=== PATIENT | male | born 1950 | race Caucasian/White ===

== ENCOUNTER → 2019-09-30 | Outpatient (CLI) | payer MEDICARE ==
[2019-09-30 15:28] LABS: Basophils % (A) 1 %; Eosinophils # (A) 0.2 k/uL (0-0.7); Eosinophils % (A) 5 %; HCT 45.9 % (39.0-53.0); Lymphocytes # (A) 1.7 k/uL (1.0-4.8); Lymphocytes % (A) 44 %; MCH 29.8 pg (25.0-35.0); MCHC 32.6 g/dL (31.0-37.0); MCV 91.4 fL (80.0-100.0); Mean Platelet Volume 6.9; Monocytes # (A) 0.2 k/uL (0-1.0); Monocytes % (A) 5 %; Neutrophils # (A) 1.6 k/uL (1.3-7.7); Neutrophils % (A) 42 %; Platelet Count 276 k/uL (150-450); RBC 5.03 m/uL (4.30-5.90); RDW 14.2 % (11.5-15.5); WBC 3.8 k/uL (3.8-10.6)
[2019-09-30 19:11] LABS: African American GFR (CKD) 89.9 (60.0-200.0); Albumin 4.2 g/dL (3.80-4.90); Albumin/Globulin Ratio 2.1 (1.60-3.17); Anion Gap 9.4 mmol/L (4.00-12.00); Calcium 9.3 mg/dL (8.7-10.3); Carbon Dioxide 27.6 mmol/L (21.6-31.8); Non-African American GFR(CKD) 77.5 (60.0-200.0); Potassium 4.4 mmol/L (3.5-5.5); Total Bilirubin 0.4 mg/dL (0.2-1.2); Total Protein 6.2 g/dL (6.2-8.2)
== END | disposition home or self-care (01) ==
LOC: LABWHC1 14:08
PROVIDERS: ATTEND Nurse Practitioner
DX: C18.9 Malignant neoplasm of colon, unspecified (principal); D50.9 Iron deficiency anemia, unspecified; K90.9 Intestinal malabsorption, unspecified
CPT/HCPCS: 36415; 80053; 85025

== ENCOUNTER → 2021-04-23 | Outpatient (CLI) | payer MEDICARE ==
--- NOTE | 2021-04-23 08:42 | CT ---
EXAMINATION TYPE: CT ChestAbdPelvis w con DATE OF EXAM: 04/23/2021 COMPARISON: None HISTORY: bladder and colon CA, Lung nodule CT DLP: 2347 mGycm CONTRAST: CT scan of the chest, abdomen and pelvis is performed with Oral Contrast and with IV Contrast, patien t injected with 100 mL of Isovue 300. CT Chest: LUNGS: 2.6 cm pulmonary nodule right lower lobe. 1.8 cm pulmonary nodule left lower lobe. Right upper lobe pulmonary nodule measuring 1.1 cm an additional right upper lobe nodule measuring 8 mm. Right u pper lobe peripheral pulmonary nodule measuring 11 mm. MEDIASTINUM: Thoracic aorta is of normal caliber. The heart is not enlarged. No evidence for media stinal mass or adenopathy. HILAR STRUCTURES: No evidence for mass. No hilar adenopathy is appreciated. OTHER: No significant abnormality. CONTRAST CT ABDOMEN AND PELVIS FINDINGS: LIVER/GB: No calcified gallstones. No space occupying hepatic lesion. Biliary tree is of normal ca liber. PANCREAS: No inflammation. No distinct mass. SPLEEN: No splenic enlargement. No lesion seen. ADRENALS: No nodule. No thickening. KIDNEYS/BLADDER: No hydronephrosis. Bilateral nephrolithiasis without obstruction. No distinct renal mass. Urinary bladder is not ideally opacified for appropriate evaluation. BOWEL: Normal appendix. Normal bowel caliber. No inflammation. GENITAL ORGANS: No gross abnormality. LYMPH NODES: No greater than 1cm abdominal or pelvic lymph nodes are appreciated. AORTA: No significant abnormality. OSSEOUS STRUCTURES: No significant abnormality is seen. OTHER: No significant additional abnormality is seen. IMPRESSION: 1. Bilateral pulmonary nodules. Correlate for metastatic disease.
== END | disposition home or self-care (01) ==
LOC: RADCTMAIN 06:15
PROVIDERS: ATTEND Internal Medicine Medical Oncology
DX: C67.9 Malignant neoplasm of bladder, unspecified (principal); R91.8 Other nonspecific abnormal finding of lung field
CPT/HCPCS: 71260; 74177; J1642; Q9967

== ENCOUNTER → 2021-08-09 | Outpatient (CLI) | payer MEDICARE ==
--- NOTE | 2021-08-12 08:58 | PE ---
EXAMINATION TYPE: PET CT fusion skull to thigh DATE OF EXAM: 08/09/2021 COMPARISON: Prior whole body CT April 23, 2021 HISTORY: Bladder cancer progress study per order. History of colon cancer metastatic to the lung di agnosed 2018 currently on chemotherapy. TECHNIQUE: Following the intravenous administration of 8.66 mCi of F-18 FDG, whole body images are p erformed from the skull base to the midthigh. Images are reviewed on the computer in the coronal, ax ial, and sagittal planes. Reconstructed rotating images are created on independent workstation and r eviewed on the computer. A localization and attenuation correction CT is performed in conjunction w ith the PET scan. Blood glucose level equals 118. SCAN: Subsequent Scan FINDINGS: SKULL BASE AND NECK: There is 10 x 7 mm right parotid hypermetabolic mass or nodule axial image 55, max SUV is 4.72. This is at the level of a draining tortuous vessel or vein. No additional areas of a bnormal hypermetabolic uptake. CHEST, MEDIASTINUM, AND HILAR REGION: Enlarged posterior 4.1 x 3.4 cm right lung mass with abnormal h ypermetabolic uptake, max SUV is 10.09 on axial image 147. Additional scattered hypermetabolic pulmon puja nodules stable or increased in size, posterior left midlung lesion now measures 2.6 x 2.4 cm axia l image 139 with central cavitation, max SUV is 8.53. ABDOMEN AND PELVIS: Normal excretion is seen. Mild nonspecific bowel uptake anterior pelvic bowel loo ps is present. No additional abnormal hypermetabolic uptake. OSSEOUS STRUCTURES: Some increased uptake greater trochanter level bilaterally greater on the right i s suspicious for trochanteric bursitis. Mild uptake bilateral shoulder joints corresponds to levels o f advanced degenerative change. OTHER CT: There is right internal jugular Mediport catheter terminating in SVC. There is coronary art cinthia calcification which is noted marked of underlying coronary artery disease. Surgical changes sigmo id rectal colon. Prostate gland has a linear density axial image 272 possible treatment change, corre late clinically. No significant change from prior. Multilevel spurring in the spine. IMPRESSION: 1. Pulmonary metastatic progression as detailed above. 2. Nonspecific hypermetabolic right parotid just under 1.0 cm mass in which neoplasm cannot be exclud ed. Advise ENT referral and consider sampling.
== END | disposition home or self-care (01) ==
LOC: RADPETMAIN 16:23
PROVIDERS: ATTEND Internal Medicine Medical Oncology
DX: C78.5 Secondary malignant neoplasm of large intestine and rectum (principal); C67.9 Malignant neoplasm of bladder, unspecified; E66.3 Overweight; I48.91 Unspecified atrial fibrillation
CPT/HCPCS: 78815; A9552

== ENCOUNTER → 2021-11-29 | Outpatient (CLI) | payer MEDICARE ==
--- NOTE | 2021-12-02 06:36 | PE ---
EXAMINATION TYPE: PET CT fusion skull to thigh DATE OF EXAM: 11/29/2021 COMPARISON: Prior PET/CT August 09, 2021. Prior CT CAP April 23, 2021 HISTORY: History of colon cancer diagnosed November 24, 2017. Patient completed chemotherapy November 03, 2021 . TECHNIQUE: Following the intravenous administration of 8.84 mCi of F-18 FDG, whole body images are p erformed from the skull base to the midthigh. Images are reviewed on the computer in the coronal, ax ial, and sagittal planes. Reconstructed rotating images are created on independent workstation and r eviewed on the computer. A localization and attenuation correction CT is performed in conjunction w ith the PET scan. Blood glucose level equals 124. SCAN: Subsequent Scan FINDINGS: SKULL BASE AND NECK: Persistent 10 x 7 mm deep right parotid hypermetabolic mass or lymph node axial image 34 current study, max SUV is 3.16 current study improved from 4.72. This is at the level of a draining tortuous vessel or vein just superficial to this. No definitive new areas of abnormal hypermetabolic uptake. CHEST, MEDIASTINUM, AND HILAR REGION: Persistent posterior 2.9 x 2.4 cm nodule decreased in size from 4.1 x 3.4 cm on prior study axial image 128 with persistent but improved abnormal hypermetabolic upt patsy, max SUV is 4.84 versus 10.09 on prior study. Additional scattered hypermetabolic pulmonary nodul es decreased in size and max SUV, for reference there is posterior left midlung lesion now measures 1 .7 x 1.0 cm axial image 121 versus 2.6 x 2.4 cm prior study, max SUV is currently less than 2.5 versu s 8.53. No definitive new abnormal hypermetabolic lesions. ABDOMEN AND PELVIS: Normal excretion is seen. Mild nonspecific bowel uptake anterior pelvic bowel loo ps is redemonstrated. No new areas of abnormal hypermetabolic uptake clearly seen. OSSEOUS STRUCTURES: Some persistent increased uptake greater trochanter level bilaterally greater on the right is suspicious for trochanteric bursitis is redemonstrated. Mild uptake bilateral shoulder j oints corresponds to levels of advanced degenerative change similar to prior. OTHER CT: There is right internal jugular Mediport catheter redemonstrated. There is coronary artery calcification which is noted marker for underlying coronary artery disease redemonstrated. Surgical c hanges sigmoid rectal colon again seen. Prostate gland has a linear density axial image 272 possible treatment change, redemonstrated. Multilevel spurring in the spine again seen. IMPRESSION: Partial positive treatment response as detailed above. Improving pulmonary metastatic dis ease noted. Right parotid lesion also shows positive treatment response. No new metastatic disease id entified.
== END | disposition home or self-care (01) ==
LOC: RADPETMAIN 11:07
PROVIDERS: ATTEND Internal Medicine Medical Oncology
DX: C67.9 Malignant neoplasm of bladder, unspecified (principal); C78.5 Secondary malignant neoplasm of large intestine and rectum; I48.91 Unspecified atrial fibrillation; E66.3 Overweight; Z68.25 Body mass index [BMI] 25.0-25.9, adult
CPT/HCPCS: 78815; A9552

== ENCOUNTER 2021-12-05 12:42 | Emergency (ER) | payer MEDICARE ==
[2021-12-05 14:34] VITALS: BP 136/80; PULSE 55; RESP 18; TEMP 97.9
== END 2021-12-05 20:11 | disposition left against medical advice (07) ==
LOC: EC 12:42
DX: Z53.21 Procedure and treatment not carried out due to patient leaving prior to being seen by health care provider (principal)
CPT/HCPCS: 87635; 99499

== ENCOUNTER → 2022-01-13 | Outpatient (CLI) | payer MEDICARE, BC ==
[2022-01-13 16:32] LABS: African American GFR (CKD) >90 (>60 ml/min/1.73 sqM); Blood Urea Nitrogen 19 mg/dL (9-20); Non-African American GFR(CKD) 90 (>60 ml/min/1.73 sqM)
--- NOTE | 2022-01-13 20:10 | CT ---
EXAMINATION TYPE: CT angio chest DATE OF EXAM: 01/13/2022 COMPARISON: CT dated 04/23/2021 and PET scan dated 11/29/2021 HISTORY: Chest pain and shortness of breath. Atrial fibrillation. CT DLP: 1623 mGy.cm. (Including the neck soft tissue CT scan). Automated Exposure Control for Dose Re duction was Utilized. TECHNIQUE AND CONTRAST: CTA scan of the thorax is performed with IV Contrast, patient injected with 100 mL of Isovue 370, use d both studies. Pulmonary angiogram protocol. MIP Images are created on an independent workstation and reviewed. FINDINGS: No definite filling defect within the pulmonary trunk, main pulmonary arteries, lobar, segmental and proximal subsegmental branches to suggest pulmonary embolism. Distal subsegmental branches are subopt imally assessed. The pulmonary trunk measures 3.1 cm suggestive of pulmonary hypertension. No gross c ardiomegaly. Coronary and arterial atherosclerotic calcifications. Focal ectasia along the inferior a spect of the aortic arch measuring up to 3.2 cm. Slightly larger known lung lesions as compared to the last available PET scan dated 11/29/2021. For exa mple, a right lower lobe posterior lesion measures 2.5 x 3.3 cm compared to 2.4 x 2.9 cm previously. A left lower lobe posterior lesion measures 13 x 19 mm compared to 10 x 17 mm previously. A right upp er lobe lesion measures 13.3 cm compared to 11.7 cm previously. Right apical nodule measures 5 mm com pared to 2 mm previously. A medial right upper lobe lesion measures 15 x 23 mm compared to 14 x 20 mm previously. COPD changes. More infiltration is seen at the posterior aspect of the lung bases, possibly metastatic rather than inflammatory/infectious, please correlate clinically. Patent trachea and main bronchi. No pleural or pericardial effusion. Diffuse wall thickening of the esophagus, underlying esophageal lesion or esoph agitis can't be excluded, please correlate clinically and with upper GI endoscopy results. Slightly more prominent yet subcentimeter bilateral hilar lymph nodes, attention on follow-up. Otherw ise no pathologically enlarged lymph nodes in the chest. Bulky spleen. Fatty infiltration of the panc reas. Nonobstructing millimetric bilateral renal calculi. Right renal cyst, suboptimally assessed. De generative changes of the glenohumeral articulations. IMPRESSION: No major or central pulmonary embolism. Interval progression of the previously seen bilateral pulmonary lesions as described above consistent with progressive pulmonary metastatic lesions. More prominent bilateral hilar lymph nodes yet subcentimeter in size, attention on follow-up. Other i nterval changes and incidental findings as described above.
--- NOTE | 2022-01-13 20:18 | CT ---
EXAMINATION TYPE: CT soft tissue neck w con DATE OF EXAM: 01/13/2022 5:06 PM COMPARISON: PET scan dated 11/29/2021 HISTORY: r side neck swelling CT DLP: 1623 mGycm Automated exposure control for dose reduction was used. CONTRAST: CT scan of the neck is performed following with IV Contrast, patient injected with 50 mL of Isovue 37 0. Axial images are obtained, coronal and sagittal reformatted images are reviewed. FINDINGS: Slightly prominent nodule seen in the right parotid gland measuring 9 mm compared to 8mm previously. Recommend correlation with PET scan results. Otherwise symmetrical unremarkable parotid and submandib ular salivary glands. Unremarkable thyroid gland. Asymmetrical soft tissue thickening along the left side of the nasopharynx with opacified left mastoid air cells, underlying nasopharyngeal lesion canno t be excluded. Unremarkable remainder of the nasopharynx, oropharynx, hypopharynx and larynx. 10 mm left level 2 lym ph node compared to 8mm previously. Other scattered subcentimeter bilateral cervical lymph nodes, non specific. Scattered arterial atherosclerotic calcifications. Patent major neck vessels. Marked degene rative changes of the cervical spine. CT scan of the chest is dictated separately. IMPRESSION: Focal soft tissue thickening along the left side of the nasopharynx with opacified left mastoid air c ells, underlying nasopharyngeal lesion cannot be excluded. Slightly more prominent right parotid gland lymph node with more prominent left level 2 lymph node as described above. This could represent disease progression. Recommend correlation with PET scan resul ts. Other findings as described above.
== END | disposition home or self-care (01) ==
LOC: RADCTMAIN 14:53
PROVIDERS: ATTEND Internal Medicine Medical Oncology
DX: C67.9 Malignant neoplasm of bladder, unspecified (principal); C78.5 Secondary malignant neoplasm of large intestine and rectum; E66.3 Overweight; I48.91 Unspecified atrial fibrillation; R22.1 Localized swelling, mass and lump, neck
CPT/HCPCS: 82565; 84520; 70491; 71275; 36415; Q9967

== ENCOUNTER → 2022-02-28 | Outpatient (CLI) | payer MEDICARE, BC ==
--- NOTE | 2022-03-01 09:21 | PE ---
EXAMINATION TYPE: PET CT fusion skull to thigh DATE OF EXAM: 02/28/2022 CLINICAL INDICATION:Male, 71 years old with history of C67.9 Bladder CA; subsequent. TECHNIQUE: Following the intravenous administration of 12.3 mCi of F-18 FDG, whole body images are performed from the skull base to the midthigh. Images are reviewed on the computer in the coronal, a xial, and sagittal planes. Reconstructed rotating images are created on independent workstation and reviewed on the computer. A non-contrast CT is performed in conjunction with the PET scan. Glucose 110 mg/dL. COMPARISON: PET 11/29/2021 and 08/09/2021. FINDINGS: SKULL BASE AND NECK: There is a parotid gland lesion which demonstrates increased FDG activity measu ring 5 mm in short axis and maximum SUV of 3.3. CHEST, MEDIASTINUM, AND HILAR REGION: Redemonstration of pulmonary nodules which demonstrate increase d FDG activity compared to prior, example on CT imaging includes 82, 86, 103, 105 among others in the right upper lobe and middle lobe. The largest in the right lower lobe 2.9 x 2.7 cm in max SUV of 9.5, previously 4.8 and measuring 2.7 x 2.4 cm. The largest in the left lower lobe measuring 1.9 x 1.4 cm in max SUV 5.5, previously 3.0 and measurin g 1.7 x 1.2 cm. No increased FDG activity seen within the mediastinum. ABDOMEN AND PELVIS: No suspicious FDG activity. OSSEOUS STRUCTURES: No suspicious FDG activity. OTHER CT: The lenses are removed from the globes. Mild to moderate coronary artery atherosclerosis. R ight chest wall [id number] with distal tip terminating at the superior cavoatrial junction. Right renal cyst with right nonobstructing calculus. Left nonobstructing renal calculi. Fatty atrophy bullock es of the pancreas. Diastasis of the rectus abdominis musculature. Post surgical changes to the rectu m/sigmoid colon. There is bilateral fatty inguinal hernias. Multilevel disc degeneration changes are seen throughout the spine. IMPRESSION: 1. Progressive disease with scattered pulmonary nodules which have increased FDG activity when elva red to recent prior on 11/29/2021. 2. Right parotid gland lesion FDG uptake similar to prior exams dating back to 08/09/2021. 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 Ultrasound could be performed if clinically warranted.
== END | disposition home or self-care (01) ==
LOC: RADXRMAIN 12:04
PROVIDERS: ATTEND Internal Medicine Medical Oncology
DX: C67.8 Malignant neoplasm of overlapping sites of bladder (principal); C78.5 Secondary malignant neoplasm of large intestine and rectum; E66.3 Overweight; I48.91 Unspecified atrial fibrillation; Z68.25 Body mass index [BMI] 25.0-25.9, adult
CPT/HCPCS: 78815; A9552

== ENCOUNTER → 2022-06-13 | Outpatient (CLI) | payer MEDICARE, BC ==
--- NOTE | 2022-06-14 11:13 | PE ---
EXAMINATION TYPE: PET CT fusion skull to thigh DATE OF EXAM: 06/13/2022 CLINICAL INDICATION:Male, 71 years old with history of C67.8 TECHNIQUE: Following the intravenous administration of 11.71 mCi of F-18 FDG, whole body images are performed from the skull base to the midthigh. Images are reviewed on the computer in the coronal, axial, and sagittal planes. Reconstructed rotating images are created on independent workstation and reviewed on the computer. A non-contrast CT is performed in conjunction with the PET scan. Glucose 119 mg/dL COMPARISON: CT 01/13/2022 CT chest , PET/CT most recent 02/28/2022, FINDINGS: Mediastinal SUV mean is 1.7. Hepatic parenchyma SUV mean is 2.6. SKULL BASE AND NECK: There is a parotid gland lesion which demonstrates faint increased FDG activity and maximum SUV of 2.7, previously 3.35 and measures 5 mm similar to prior similar prior. CHEST, MEDIASTINUM, AND HILAR REGION: Redemonstration of pulmonary nodules which demonstrate increased FDG activity , these have decreased FDG activity when compared to immediate prior. Examples includes * Left lower lobe max SUV 1.8, previously 5.5 measuring 18 mm. * Right lower lobe max SUV 4.2, previously 9.5 measuring 23 mm . * Right upper lobe max SUV 2.7, previously 6.0 measuring 12 mm. * Left upper lobe max SUV 3.4, previously 6.4 measuring 18 mm. Volumes of the lesions are similar. ABDOMEN AND PELVIS: No suspicious FDG activity. OSSEOUS STRUCTURES: No suspicious FDG activity. Degeneration changes of the shoulders worse on the ri ght increased mild FDG activity max SUV 2.3. OTHER CT: The lenses are removed from the globes. Atherosclerosis of the arterial vasculature includi ng the coronary arteries and carotid bifurcations. Right chest wall [id number] with distal tip ter minating at the superior cavoatrial junction. Right renal cyst with right nonobstructing calculus. Le ft nonobstructing renal calculi. Fatty atrophy changes of the pancreas. Diastasis of the rectus abdom inis musculature. Post surgical changes to the rectum/sigmoid colon. There is bilateral fatty inguina l hernias. Multilevel disc degeneration changes are seen throughout the spine. IMPRESSION: 1. Partial positive response to therapy with scattered pulmonary nodules which have decreased FDG ac tivity with similar volume when compared to recent prior on 02/28/2022 2. Right parotid gland lesion FDG uptake similar to prior exams dating back to 08/09/2021. 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 Ultrasound could be performed if clinically warranted.
== END | disposition home or self-care (01) ==
LOC: RADPETMAIN 14:17
PROVIDERS: ATTEND Internal Medicine Medical Oncology
DX: C67.8 Malignant neoplasm of overlapping sites of bladder (principal); K11.9 Disease of salivary gland, unspecified; R91.8 Other nonspecific abnormal finding of lung field
CPT/HCPCS: 78815; A9552

== ENCOUNTER → 2023-03-20 | Outpatient (CLI) | payer MEDICARE ==
--- NOTE | 2023-03-21 18:12 | PE ---
EXAMINATION TYPE: PET CT fusion skull to thigh DATE OF EXAM: 03/20/2023 COMPARISON: No recent pertinent CT Prior PET/CT: 11/28/2022 HISTORY: Bladder cancer TECHNIQUE: Following the intravenous administration of 9.8 mCi of F-18 FDG, whole body images are pe rformed from the skull base to the midthigh. Images are reviewed on the computer in the coronal, axi al, and sagittal planes. Reconstructed rotating images are created on independent workstation and re viewed on the computer. A localization and attenuation correction CT is performed in conjunction wi th the PET scan. DLP: 41.75 mGycm SCAN: Subsequent Blood glucose: 120. mg/dL Average Mediastinum SUV: 2.34 Average Liver SUV: 3.49 FINDINGS: NECK: No abnormal uptake THORAX: There is a focus of intense uptake within the right suprahilar region with an SUV value of 4. 77, image 89. There is increased uptake within the peripheral nodular density right upper lung field, image 84 SUV 3.57. There is a right infrahilar radiotracer uptake measuring 3.95, image 108. There i s intense activity within the mass in the peripheral right lung with an SUV value of 7.55, image 113. There is intense uptake within a mass within the posterior left mid lung, SUV 4.4 image 117. A mass within the posterior right lung has an SUV value of 6.34, image 123. ABDOMEN: No abnormal uptake PELVIS: No abnormal uptake. There is radiotracer within the urinary bladder which can be related to n ormal excretion. There appears to be some wall thickening OSSEOUS STRUCTURES: No abnormal uptake. Some mild uptake at degenerative bilateral shoulders is noted . LOCALIZATION CT: Prostate contains a marker. Diffuse wall thickening through the urinary bladder appe ars to be present. Anterior pelvic wall hernia which is widely open and contains nonobstructed loops of bowel. Bilateral hydronephrosis is evident. An obstructing 0.8 cm calcification may be present. COMPARISON: Masses are increasing in size. Signal intensity is increasing. IMPRESSION: 1. Multiple increasing size bilateral lung masses with increasing SUV values compatible with worsenin g neoplastic processes.
== END | disposition home or self-care (01) ==
LOC: RADPETMAIN 13:02
PROVIDERS: ATTEND Internal Medicine Medical Oncology
DX: C67.8 Malignant neoplasm of overlapping sites of bladder (principal); R91.8 Other nonspecific abnormal finding of lung field
CPT/HCPCS: 78815; A9552

== ENCOUNTER → 2023-06-02 | Outpatient (CLI) | payer MEDICARE, BC ==
--- NOTE | 2023-06-02 10:51 | MR ---
EXAMINATION TYPE: MR brain wo/w con DATE OF EXAM: 06/02/2023 COMPARISON: None HISTORY: Lung cancer. TECHNIQUE: Multiplanar, multisequence images of the brain and brainstem is performed without and with IV contras t, utilizing 10.5 mL intravenous Gadavist . FINDINGS: Diffusion weighted images demonstrate no evidence of a recent infarct or other diffusion ab normality. There is a mild to moderate generalized degenerative change. Scattered areas of abnormal signal in the white matter are nonspecific but most typical remote white matter ischemia.. Midline structures demonstrate normal morphology. The craniocervical junction appears within normal limits. The dural venous sinuses appear patent. Bilateral mastoiditis mild chronic sinusitis. Nasal septal de viation. Orbits symmetric. Post contrast images demonstrate solid appearing lesion along the left cerebral vertex parietal lobe. Measuring 1 x 1 x 1.4 cm with adjacent vasogenic edema.. No midline shift. Report called to [facility] clinician 10:48 AM 06/02/2023. IMPRESSION: 1. There is a 1 x 1 x 1.4 cm left superior parietal lobe intracranial mass compatible with metastases .
== END | disposition home or self-care (01) ==
LOC: RADMRIMAIN 08:59
PROVIDERS: ATTEND Internal Medicine Medical Oncology
DX: C78.5 Secondary malignant neoplasm of large intestine and rectum (principal); C34.90 Malignant neoplasm of unspecified part of unspecified bronchus or lung; C67.9 Malignant neoplasm of bladder, unspecified; I48.91 Unspecified atrial fibrillation; E66.3 Overweight; R22.0 Localized swelling, mass and lump, head
CPT/HCPCS: 70553; J1642; A9585

== ENCOUNTER 2023-06-12 14:05 | Inpatient (IN) | payer MEDICARE, BC ==
[2023-06-12] MEDS ORDERED: IPRATROPIUM-ALBUTEROL 3 ML NEB INHALATION STA (14:22)
--- NOTE | 2023-06-12 14:45 | ED ---
General Adult HPI - General Chief complaint: Shortness of Breath Stated complaint: respitory distress Time Seen by Provider: 06/12/23 14:16 Source: EMS, RN notes reviewed Mode of arrival: EMS Limitations: no limitations - History of Present Illness Initial comments: 72-year-old male with past medical history significant for department with a chief complaint of hypoxia. Patient's family called EMS because patient's oxygen was well where he had a brief period where he had altered mental status. They are concerned because of patients low oxygen level. Patient is alert and oriented 3 upon initial history and physical exam. Patient's oxyg en ranging between 90% to 91% on room air. He reports shortness of breath upon exertion . Patient does report a productive cough with dark green sputum production. Denies any injury or trauma. Denies any fever, chills, chest pain, palpitations. Patient is a former smoker. - Related Data Home Medications Medication Instructions Recorded Confirmed Atorvastatin [Lipitor] 40 mg PO HS 06/12/23 06/12/23 Cholecalciferol [Vitamin D3 (25 25 mcg PO DAILY 06/12/23 06/12/23 Mcg = 1000 Iu)] Cyanocobalamin (Vitamin B-12) 1,000 mcg PO DAILY 06/12/23 06/12/23 [Vitamin B-12] DULoxetine HCL [Cymbalta] 60 mg PO HS 06/12/23 06/12/23 Garlic(Unknown Dose) 1 cap PO DAILY 06/12/23 06/12/23 HYDROcodone/APAP 10-325MG [[place] 1 tab PO Q6H PRN 06/12/23 06/12/23 10-325] Ipratropium-Albuterol Nebulize 3 ml INHALATION RT-TID 06/12/23 06/12/23 [Duoneb 0.5 mg-3 mg/3 ml Soln] Levofloxacin [Levaquin] 500 mg PO DAILY 06/12/23 06/12/23 Metoprolol Succinate (ER) [Toprol 25 mg PO HS 06/12/23 06/12/23 Xl] Montelukast [Singulair] 10 mg PO HS 06/12/23 06/12/23 Morphine Sulfate ER [Ms Contin] 30 mg PO BID 06/12/23 06/12/23 [place]-3 Fatty Acids [[place]-3] 4,000 mg PO DAILY 06/12/23 06/12/23 Pantoprazole [Protonix] 40 mg PO HS 06/12/23 06/12/23 Pregabalin [Lyrica] 75 mg PO BID 06/12/23 06/12/23 Prochlorperazine [Compazine] 10 mg PO Q6H PRN 06/12/23 06/12/23 Tamsulosin [Flomax] 0.4 mg PO HS 06/12/23 06/12/23 guaiFENesin [Mucinex] 600 mg PO BID 06/12/23 06/12/23 Allergies Allergy/AdvReac Type Severity Reaction Status Date / Time alprazolam [From Xanax] Allergy Unknown Verified 06/12/23 18:03 scopolamine Allergy Unknown Verified 06/12/23 18:03 Review of Systems ROS Statement: Those systems with pertinent positive or pertinent negative responses have been documented in the HPI. ROS Other: All systems not noted in ROS Statement are negative. Past Medical History Past Medical History: Cancer, COPD, CVA/TIA, GERD/Reflux, Hypertension Additional Past Medical History / Comment(s): colon cancer, lung cancer History of Any Multi-Drug Resistant Organisms: None Reported Past Surgical History: Bowel Resection, Joint Replacement, Orthopedic Surgery Past Psychological History: No Psychological Hx Reported Smoking Status: Former smoker Past Alcohol Use History: None Reported Past Drug Use History: Marijuana General Exam - General Exam Comments Initial Comments: General: Alert, in no acute distress Head: atraumatic normocephalic. Eyes PERRL, EOMI intact, mucous membranes moist Respiratory: Bilateral wheezing, conversationally dyspneic Cardiovascular: Heart rate regular rate and rhythm Abdominal: Soft without guarding or rebound Extremities: Normal inspection with full range of motion and normal capillary refill Neuroogic: alert and oriented 3, CN II-XII intact, able to ambulate with steady gait Skin: warm dry and intact with normal color Limitations: no limitations Course Vital Signs 06/12/23 06/12/23 06/12/23 14:07 14:35 14:44 Temperature 97.3 F L Pulse Rate 85 91 86 Respiratory 18 Rate Blood Pressure 134/76 O2 Sat by Pulse 93 L Oximetry 06/12/23 17:47 Temperature Pulse Rate 87 Respiratory 22 Rate Blood Pressure 127/92 O2 Sat by Pulse 95 Oximetry - Reevaluation(s) Reevaluation #1: 06/12/23 15:24 case discussed with jordi Birch who is at bedside to evaluate the patient EKG Findings - EKG Comments: EKG Findings:: I interpreted the following: EKG performed at [place]: 19 84 bpm normal sinus rhythm ID interval 205, QRS is 96, QT/QTc is 365/406 Medical Decision Making - Medical Decision Making Was pt. sent in by a medical professional or institution (, NICOLE, DIET THERAPIST, urgent care, hospital, or [facility]...) When possible be specific @ -[No] Did you speak to anyone other than the patient for history (EMS, parent, family, police, friend...)? What history was obtained from this source @ -[No] Did you review nursing and triage notes (agree or disagree)? Why? @ -[I reviewed and agree with nursing and triage notes] Were old charts reviewed (outside hosp., previous admission, EMS record, old EKG, old radiological studies, urgent care reports/EKG's, [facility] records)? Report findings @ -[No old charts were reviewed] Differential Diagnosis (chest pain, altered mental status, abdominal pain women, abdominal pain men, vaginal bleeding, weakness, fever, dyspnea, syncope, headache, dizziness, GI bleed, back pain, seizure, CVA, palpatations, mental health, musculoskeletal)? @ -[not applicable] EKG interpreted by me (3pts min.). @ -[As above] X-rays interpreted by me (1pt min.). @ -yes CT interpreted by me (1pt min.). @ -[None done] U/S interpreted by me (1pt. min.). @ -[None done] What testing was considered but not performed or refused? (CT, X-rays, U/S, labs)? Why? @ -[None] What meds were considered but not given or refused? Why? @ -[None] Did you discuss the management of the patient with other professionals (professionals i.e. NICOLE Balbuena, DIET THERAPIST, lab, RT, psych nurse, child welfare social worker, purchasing intern, teacher, fare enforcement officer, egg caser)? Give summary @ -Dr. Nickerson who accepts the patient for observation with Tu consult to Dr. Jones and Dr. Greenfield Was smoking cessation discussed for >3mins.? @ -[No] Was critical care preformed (if so, how long)? @ -[No] Were there social determinants of health that impacted care today? How? (Homelessness, low income, unemployed, alcoholism, drug addiction, transportation, low edu. Level, literacy, decrease access to med. care, intermediate, rehab)? @ -[No] Was there de-escalation of care discussed even if they declined (Discuss DNR or withdrawal of care, Hospice)? DNR status @ -[No] What co-morbidities impacted this encounter? (DM, HTN, Smoking, COPD, CAD, Cancer, CVA, ARF, Chemo, Hep., AIDS, mental health diagnosis, sleep apnea, morb id obesity)? @ -[None] Was patient admitted / discharged? Hospital course, mention meds given and route, prescriptions, significant lab abnormalities, going to OR and other pertinent info. @ Admission. This is a 72-year-old male with a past medical history significant for cancer who presents to the emergency department with shortness of breath and altered mental status. Patient had a thorough history and physical exam performed. Patient's initial oxygen saturation is 98-91% on room air. Patient was placed on 2 L O2. Patient is conversationally dyspneic. There is expiratory wheeze in all lung barriga. Patient was provided DuoNeb and Solu-Medrol with mild symptomatic improvement. Case is discussed with Dr. nickerson who is at bedside to evaluate the patient and accepts the patient for further observation recommends consult to Dr. Dot Jones. Chest x-ray reveals progression of cancer compared to 03/20/2023 Case is discussed with Dr. Brown [facility] who agrees with plan of care Undiagnosed new problem with uncertain prognosis? @ -[No] Drug Therapy requiring intensive monitoring for toxicity (Heparin, Nitro, Insulin, Cardizem)? @ -[No] Were any procedures done? @ -[No] Diagnosis/symptom? @ -Shortness of Breath - Hypoxia - Altered Mental Status Acute, or Chronic, or Acute on Chronic? @ -Acute Uncomplicated (without systemic symptoms) or Complicated (systemic symptoms)? @ -complicated Side effects of treatment? @ -[No] Exacerbation, Progression, or Severe Exacerbation? @ -[No] Poses a threat to life or bodily function? How? (Chest pain, [place], [place], pneumonia, PE, COPD, DKA, ARF, appy, cholecystitis, CVA, Diverticulitis, Homicidal, Suicidal, threat to staff... and all critical care pts) @ -Yes, Shortness of breath - Lab Data Result diagrams: 06/13/23 06:08 06/13/23 06:08 Lab Results 06/12/23 06/12/23 06/12/23 Range/Units 14:29 14:29 14:29 WBC 7.9 (3.8-10.6) k/uL RBC 3.87 L (4.30-5.90) m/uL Hgb 10.8 L (13.0-17.5) gm/dL Hct 33.9 L (39.0-53.0) % MCV 87.4 (80.0-100.0) fL MCH 28.0 (25.0-35.0) pg MCHC 32.0 (31.0-37.0) g/dL RDW 14.4 (11.5-15.5) % Plt Count 400 (150-450) k/uL MPV 6.8 Neutrophils % 74 % Lymphocytes % 17 % Monocytes % 5 % Eosinophils % 2 % Basophils % 0 % Neutrophils # 5.9 (1.3-7.7) k/uL Lymphocytes # 1.4 (1.0-4.8) k/uL Monocytes # 0.4 (0-1.0) k/uL Eosinophils # 0.2 (0-0.7) k/uL Basophils # 0.0 (0-0.2) k/uL Hypochromasia Slight PT 10.6 (10.0-12.5) sec INR 1.0 (<1.2) APTT 28.1 (22.0-30.0) sec Sodium 139 (137-145) mmol/L Potassium 4.5 (3.5-5.1) mmol/L Chloride 102 (98-107) mmol/L Carbon Dioxide 32 H (22-30) mmol/L Anion Gap 5 mmol/L BUN 23 H (9-20) mg/dL Creatinine 0.78 (0.66-1.25) mg/dL Est GFR (CKD-EPI)AfAm >90 (>60 ml/min/1.73 sqM) Est GFR (CKD-EPI)NonAf >90 (>60 ml/min/1.73 sqM) Glucose 101 H (74-99) mg/dL Calcium 9.0 (8.4-10.2) mg/dL Total Bilirubin 0.3 (0.2-1.3) mg/dL AST 20 (17-59) U/L ALT 22 (4-49) U/L Alkaline Phosphatase 111 (38-126) U/L Troponin I (0.000-0.034) ng/mL NT-Pro-B Natriuret Pep 252 pg/mL Total Protein 6.2 L (6.3-8.2) g/dL Albumin 3.2 L (3.5-5.0) g/dL Influenza Type A (PCR) (Not Detectd) Influenza Type B (PCR) (Not Detectd) RSV (PCR) (Not Detectd) SARS-CoV-2 (PCR) (Not Detectd) 06/12/23 06/12/23 Range/Units 14:29 14:29 WBC (3.8-10.6) k/uL RBC (4.30-5.90) m/uL Hgb (13.0-17.5) gm/dL Hct (39.0-53.0) % MCV (80.0-100.0) fL MCH (25.0-35.0) pg MCHC (31.0-37.0) g/dL RDW (11.5-15.5) % Plt Count (150-450) k/uL MPV Neutrophils % % Lymphocytes % % Monocytes % % Eosinophils % % Basophils % % Neutrophils # (1.3-7.7) k/uL Lymphocytes # (1.0-4.8) k/uL Monocytes # (0-1.0) k/uL Eosinophils # (0-0.7) k/uL Basophils # (0-0.2) k/uL Hypochromasia PT (10.0-12.5) sec INR (<1.2) APTT (22.0-30.0) sec Sodium (137-145) mmol/L Potassium (3.5-5.1) mmol/L Chloride (98-107) mmol/L Carbon Dioxide (22-30) mmol/L Anion Gap mmol/L BUN (9-20) mg/dL Creatinine (0.66-1.25) mg/dL Est GFR (CKD-EPI)AfAm (>60 ml/min/1.73 sqM) Est GFR (CKD-EPI)NonAf (>60 ml/min/1.73 sqM) Glucose (74-99) mg/dL Calcium (8.4-10.2) mg/dL Total Bilirubin (0.2-1.3) mg/dL AST (17-59) U/L ALT (4-49) U/L Alkaline Phosphatase (38-126) U/L Troponin I <0.012 (0.000-0.034) ng/mL NT-Pro-B Natriuret Pep pg/mL Total Protein (6.3-8.2) g/dL Albumin (3.5-5.0) g/dL Influenza Type A (PCR) Not Detected (Not Detectd) Influenza Type B (PCR) Not Detected (Not Detectd) RSV (PCR) Not Detected (Not Detectd) SARS-CoV-2 (PCR) Not Detected (Not Detectd) Disposition Clinical Impression: Hypoxia, Lung cancer, Shortness of breath, AMS (altered mental status) Disposition: ADMITTED IP TO THIS HOSP Condition: Good Time of Disposition: 15:25
[2023-06-12 15:23] LABS: Basophils % (A) 0 %; Eosinophils # (A) 0.2 k/uL (0-0.7); Eosinophils % (A) 2 %; HCT 33.9 % (39.0-53.0); HGB 10.8 gm/dL (13.0-17.5); Hypochromasia Slight; Lymphocytes # (A) 1.4 k/uL (1.0-4.8); Lymphocytes % (A) 17 %; MCV 87.4 fL (80.0-100.0); Mean Platelet Volume 6.8; Monocytes # (A) 0.4 k/uL (0-1.0); Monocytes % (A) 5 %; Neutrophils # (A) 5.9 k/uL (1.3-7.7); Neutrophils % (A) 74 %; Platelet Count 400 k/uL (150-450); RBC 3.87 m/uL (4.30-5.90); RDW 14.4 % (11.5-15.5); WBC 7.9 k/uL (3.8-10.6)
--- NOTE | 2023-06-12 15:25 | XR ---
EXAMINATION TYPE: XR chest 2V DATE OF EXAM: 06/12/2023 COMPARISON: CT 01/13/2022 CT 03/20/2023 HISTORY: 72-year-old male with short of breath and respiratory distress TECHNIQUE: PA and lateral views FINDINGS: Right anterior chest wall injection port with catheter tip at the lower SVC. Right heart margin obscu red by adjacent pleural parenchymal opacity. There appears to be a new underlying right-sided pleural effusion with opacification of the entire right lower lung. Enlarging masses suggested on the right and at least one enlarging nodule suspected left midlung compared to a 2523. IMPRESSION: New moderate right pleural effusion with adjacent atelectasis and/or consolidation. Suspect enlarging nodules and masses compared to the patient's 03/20/2023 PET/CT.
[2023-06-12 15:29] LABS: Partial Thromboplastin Time 28.1 sec (22.0-30.0); Prothrombin Time 10.6 sec (10.0-12.5)
[2023-06-12 15:30] LABS: ALT 22 U/L (4-49); AST 20 U/L (17-59); African American GFR (CKD) >90 (>60 ml/min/1.73 sqM); Albumin 3.2 g/dL (3.5-5.0); Alkaline Phosphatase 111 U/L (38-126); Anion Gap 5 mmol/L; Blood Urea Nitrogen 23 mg/dL (9-20); Carbon Dioxide 32 mmol/L (22-30); Chloride 102 mmol/L (98-107); Glucose 101 mg/dL (74-99); Non-African American GFR(CKD) >90 (>60 ml/min/1.73 sqM); Potassium 4.5 mmol/L (3.5-5.1); Sodium 139 mmol/L (137-145); Total Bilirubin 0.3 mg/dL (0.2-1.3); Total Protein 6.2 g/dL (6.3-8.2)
[2023-06-12 15:38] LABS: NT-Pro-B-Type Natriuretic Pept 252 pg/mL
[2023-06-12] MEDS ORDERED: methylPREDNISolone SOD SUCCI 125 MG/2 ML VIAL IV STA (16:03)
[2023-06-12] MEDS ORDERED: NALOXONE 0.4 MG/ML 1 ML VIAL IV PRN (17:07)
--- NOTE | 2023-06-12 17:09 | CT ---
EXAMINATION TYPE: CT brain wo con CT DLP: 1212.4 mGycm, Automated exposure control for dose reduction was used. DATE OF EXAM: 06/12/2023 4:43 PM COMPARISON: MRI brain 06/02/2023. CLINICAL INDICATION:Male, 72 years old with history of AMS, AMS TECHNIQUE: Brain: Axial CT images of the brain were obtained with coronal and sagittal reformats created and rev iewed. Contrast used: None. Oral contrast used: None. FINDINGS: Brain: Extra-axial spaces: No abnormal extra-axial fluid collections. Ventricular system: Appear dilated in proportion to cerebral atrophy. Cerebral parenchyma: No acute intraparenchymal hemorrhage or mass effect. There is a slightly hyper dense 1.1 cm mass in the superior left parietal lobe with surrounding edema, similar to the prior MRI and compatible with metastasis. No definite new foci of increased or decreased attenuation seen thro ughout the brain. Mild generalized brain atrophy. . Cerebellum: No acute abnormality. Mass effect: No evidence of midline shift. Intracranial vasculature: Atherosclerotic calcifications of the larger arteries near the skull base. Soft tissues: Normal. Calvarium/osseous structures: No depressed skull fracture. Paranasal sinuses and mastoid air cells: Paranasal sinuses are clear. Scattered mild opacification o f a few left mastoid air cells. Visualized orbits: Orbital contents appear grossly intact. MRI is more sensitive for detecting acute processes such as infarct, and may be considered if clinica lly warranted. IMPRESSION: 1. No acute intracranial CT abnormality. 2. 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
[2023-06-12] MEDS: SODIUM CHLORIDE 0.9% 1,000 ML IV SCH (17:42)
[2023-06-12] MEDS ORDERED: PROCHLORPERAZINE 10 MG TAB PO PRN (17:56)
--- NOTE | 2023-06-12 18:14 | P.HPIM ---
History of Present Illness This is a pleasant 72 years old male with past medical history lung cancer with brain metastatis , Previous smoker. COPD, CVA/TIA, GERD/Reflux, Hypertension. This patient follows up with oncology team as an outpatient , he was getting chemotherapy but recently it was switched to a new regiment for failure of treatment and he hadn't started yet. He is not on oxygen at home. He was taken dyspnea slowly getting worse and today was more severe shortness of breath even with little exertion so him and family decided to come to emergency room. Patient was on oral Levaquin as an outpatient. When I talked to him was in [id number] respiratory distress, he cannot talk comfortably because of his dyspnea and cannot finish full length sentence. Cough with white phlegm but no chest pain. No change in urine or bowel habits. No fever. He used to be a heavy smoker for 40 years and he quit about 6 years ago. No alcohol or illicit tracts. On admission he was hypoxic about 70% on room air. Currently he is saturating 95% on 2 L oxygen via nasal cannula, no fever rest of vitals are stable. Tachypneic Labs look stable, in is mildly anemic with hemoglobin 10.8. Review of Systems Review of systems CONSTITUTIONAL: No fever, no malaise, no fatigue. HEENT: No recent visual problems or hearing problems. Denied any sore throat. CARDIOVASCULAR: No orthopnea, PND, no palpitations, no syncope. PULMONARY: No wall tenderness, no hemoptysis. GASTROINTESTINAL: No diarrhea, no nausea, no vomiting, no abdominal pain. Normoactive bowel sounds. NEUROLOGICAL: No headaches, no weakness, no numbness. HEMATOLOGICAL: Denies any bleeding or petechiae. GENITOURINARY: Denies any burning micturition, frequency, or urgency. MUSCULOSKELETAL/RHEUMATOLOGICAL: Denies any joint pain, swelling, or any muscle pain. ENDOCRINE: Denies any polyuria or polydipsia. Past Medical History Past Medical History: Cancer, COPD, CVA/TIA, GERD/Reflux, Hypertension Additional Past Medical History / Comment(s): colon cancer, lung cancer History of Any Multi-Drug Resistant Organisms: None Reported Past Surgical History: Bowel Resection, Joint Replacement, Orthopedic Surgery Past Psychological History: No Psychological Hx Reported Smoking Status: Former smoker Past Alcohol Use History: None Reported Past Drug Use History: Marijuana Medications and Allergies Home Medications Medication Instructions Recorded Confirmed Type Atorvastatin [Lipitor] 40 mg PO HS 06/12/23 06/12/23 History Cholecalciferol [Vitamin D3 (25 25 mcg PO DAILY 06/12/23 06/12/23 History Mcg = 1000 Iu)] Cyanocobalamin (Vitamin B-12) 1,000 mcg PO DAILY 06/12/23 06/12/23 History [Vitamin B-12] DULoxetine HCL [Cymbalta] 60 mg PO HS 06/12/23 06/12/23 History Garlic(Unknown Dose) 1 cap PO DAILY 06/12/23 06/12/23 History HYDROcodone/APAP 10-325MG [[place] 1 tab PO Q6H PRN 06/12/23 06/12/23 History 10-325] Ipratropium-Albuterol Nebulize 3 ml INHALATION RT-TID 06/12/23 06/12/23 History [Duoneb 0.5 mg-3 mg/3 ml Soln] Levofloxacin [Levaquin] 500 mg PO DAILY 06/12/23 06/12/23 History Metoprolol Succinate (ER) [Toprol 25 mg PO HS 06/12/23 06/12/23 History Xl] Montelukast [Singulair] 10 mg PO HS 06/12/23 06/12/23 History Morphine Sulfate ER [Ms Contin] 30 mg PO BID 06/12/23 06/12/23 History [place]-3 Fatty Acids [[place]-3] 4,000 mg PO DAILY 06/12/23 06/12/23 History Pantoprazole [Protonix] 40 mg PO HS 06/12/23 06/12/23 History Pregabalin [Lyrica] 75 mg PO BID 06/12/23 06/12/23 History Prochlorperazine [Compazine] 10 mg PO Q6H PRN 06/12/23 06/12/23 History Tamsulosin [Flomax] 0.4 mg PO HS 06/12/23 06/12/23 History guaiFENesin [Mucinex] 600 mg PO BID 06/12/23 06/12/23 History Allergies Allergy/AdvReac Type Severity Reaction Status Date / Time alprazolam [From Xanax] Allergy Unknown Verified 06/12/23 18:03 scopolamine Allergy Unknown Verified 06/12/23 18:03 Physical Exam Vitals: Vital Signs Temp Pulse Resp BP Pulse Ox 06/12/23 14:44 86 06/12/23 14:35 91 06/12/23 14:07 97.3 F L 85 18 134/76 93 L Intake and Output 06/12/23 06/12/23 06/12/23 06:59 14:59 22:59 Other: Weight 106.594 kg -GENERAL: The patient is alert and oriented x3, not in any mild to moderate respiratory acute distress. Obese HEENT: Pupils are round and equally reacting to light. EOMI. No scleral icterus. No conjunctival pallor. Normocephalic, atraumatic. No pharyngeal erythema. No thyromegaly. CARDIOVASCULAR: S1 and S2 present. No murmurs, rubs, or gallops. -PULMONARY: Chest is clear to auscultation, no wheezing , no crackles. Tachypne a with bilateral crepitation ABDOMEN: Soft, nontender, nondistended, normoactive bowel sounds. No palpable organomegaly. MUSCULOSKELETAL: No joint swelling or deformity. EXTREMITIES: No cyanosis, clubbing, or pedal edema. NEUROLOGICAL: Gross neurological examination did not reveal any focal deficits. SKIN: No rashes. no petechiae. Results CBC & Chem 7: 06/12/23 14:29 06/12/23 14:29 Labs: Abnormal Lab Results - Last 24 Hours (Table) 06/12/23 06/12/23 Range/Units 14:29 14:29 RBC 3.87 L (4.30-5.90) m/uL Hgb 10.8 L (13.0-17.5) gm/dL Hct 33.9 L (39.0-53.0) % Carbon Dioxide 32 H (22-30) mmol/L BUN 23 H (9-20) mg/dL Glucose 101 H (74-99) mg/dL Total Protein 6.2 L (6.3-8.2) g/dL Albumin 3.2 L (3.5-5.0) g/dL Assessment and Plan Assessment: Lung cancers with brain metastatic Right pleural effusion, mild button U with adjacent atelectasis or consolidation, cannot rule out pneumonia Acute COPD exacerbation Hypoxic respiratory failure secondary to above Current Obesity with BMI of 31.9 History of GERD Hypertension History of CVA/TIA Plan: The patient empirically on cefepime and sent for sputum culture and blood culture Solu-Medrol 40 mg Oxygen as needed Bronchodilator Check sputum culture, blood culture and procalcitonin BiPAP at night if needed. Labs and medication were reviewed.. Continue same treatment. Continue with symptomatic treatment. Resume home medication. Monitor labs and vitals. DVT and GI prophylaxis. Further recommendations as per clinical course of the patient DVT prophylaxis: Subcutaneous Lovenox GI Prophylaxis: Ppi Prognosis is guarded
[2023-06-12] MEDS ORDERED: DEXTROSE 50% SYRINGE 50 ML IVP PRN ×2 (18:15)
[2023-06-12 20:18] LABS: Glucose,Whole Blood 148 mg/dL (70-110)
[2023-06-12] MEDS: CEFEPIME 2 GM in SODIUM CHLORIDE 0.9% 100 ML IVPB SCH ×2 (20:25→23:38)
[2023-06-12] MEDS: methylPREDNISolone SOD SUCCI 40 MG/ML 1 ML VIAL IV SCH ×2 (20:27→23:37)
[2023-06-12] MEDS: PREGABALIN 75 MG CAP PO SCH (20:27)
[2023-06-12] MEDS: guaiFENesin 600 MG TABLET.ER PO SCH (20:27)
[2023-06-12] MEDS: ENOXAPARIN 40 MG/0.4 ML SYRINGE SQ SCH (20:27)
[2023-06-12] MEDS: MONTELUKAST 10 MG TAB PO SCH (20:28)
[2023-06-12] MEDS: TAMSULOSIN 0.4 MG CAP.ER.24H PO SCH (20:28)
[2023-06-12] MEDS: MORPHINE SULFATE ER 30 MG TABLET PO SCH (20:28)
[2023-06-12] MEDS: DULoxetine HCL 60 MG CAPSULE.DR PO SCH (20:28)
[2023-06-12] MEDS: METOPROLOL SUCCINATE (ER) 25 MG TAB.ER.24H PO SCH (20:28)
[2023-06-12] MEDS: PANTOPRAZOLE 40 MG TABLET PO SCH (20:28)
[2023-06-12] MEDS: INSULIN ASPART (NovoLOG) 100 UNIT/ML VIAL SQ SCH (20:38)
[2023-06-12] MEDS: IPRATROPIUM-ALBUTEROL 3 ML NEB INHALATION PRN (22:07)
[2023-06-12] MEDS: HYDROcodone/APAP 10-325MG 1 EACH TAB PO PRN (23:37)
[2023-06-13] MEDS: INSULIN ASPART (NovoLOG) 100 UNIT/ML VIAL SQ SCH ×4 (08:00→22:21)
[2023-06-13] MEDS: IPRATROPIUM-ALBUTEROL 3 ML NEB INHALATION PRN ×3 (08:10→20:43)
[2023-06-13 08:13] LABS: Glucose,Whole Blood 146 mg/dL (70-110)
[2023-06-13] MEDS: methylPREDNISolone SOD SUCCI 40 MG/ML 1 ML VIAL IV SCH ×2 (08:30→15:27)
[2023-06-13] MEDS: CEFEPIME 2 GM in SODIUM CHLORIDE 0.9% 100 ML IVPB SCH ×2 (08:30→15:27)
[2023-06-13] MEDS: guaiFENesin 600 MG TABLET.ER PO SCH ×2 (08:31→22:21)
[2023-06-13] MEDS: PREGABALIN 75 MG CAP PO SCH ×2 (08:31→22:19)
[2023-06-13] MEDS: MORPHINE SULFATE ER 30 MG TABLET PO SCH ×2 (08:31→22:19)
[2023-06-13] MEDS: ENOXAPARIN 40 MG/0.4 ML SYRINGE SQ SCH (08:32)
[2023-06-13] MEDS ORDERED: ENOXAPARIN 40 MG/0.4 ML SYRINGE SQ SCH (09:00)
[2023-06-13 09:15] LABS: Basophils # (A) 0.01 X 10*3/uL (0.00-0.10); Basophils % (A) 0.2 %; Eosinophils # (A) 0 X 10*3/uL (0.04-0.35); Eosinophils % (A) 0 %; HCT 32.8 % (39.6-50.0); HGB 10.1 g/dL (13.0-17.0); Lymphocytes # (A) 0.51 X 10*3/uL (0.90-5.00); Lymphocytes % (A) 8.1 %; MCH 27.2 pg (27.0-32.0); MCHC 30.8 g/dL (32.0-37.0); MCV 88.2 FL (80.0-97.0); Mean Platelet Volume 9.3 FL (9.5-12.2); Monocytes # (A) 0.04 X 10*3/uL (0.20-1.00); Monocytes % (A) 0.6 %; NRBC Per 100 WBC 0 X 10*3/uL (0.00-0.01); Neutrophils # (A) 5.71 X 10*3/uL (1.80-7.70); Neutrophils % (A) 90.6 %; Platelet Count 380 X 10*3/uL (140-440); RBC 3.72 X 10*6/uL (4.40-5.60); RDW 14.4 % (11.5-14.5)
[2023-06-13 09:30] LABS: BUN/Creat Ratio 31.29 Ratio (12.00-20.00); Blood Urea Nitrogen 21.9 mg/dL (9.0-27.0); Calcium 9.3 mg/dL (8.7-10.3); Carbon Dioxide 28.1 mmol/L (21.6-31.8); Chloride 102 mmol/L (96-109); Glucose 145 mg/dL (70-110); Potassium 4.9 mmol/L (3.5-5.5); Sodium 138 mmol/L (135-145)
[2023-06-13 12:47] LABS: Glucose,Whole Blood 168 mg/dL (70-110)
--- NOTE | 2023-06-13 14:25 | P.CNPUL ---
History of Present Illness Consult date: 06/13/23 Reason for consult: dyspnea History of present illness: This is a 72-year-old male patient who is coming in the hospital because of worsening shortness of breath. The patient has history of colon cancer with metastases to his lungs. This was diagnosed proximally 6 years ago and over the years, the patient has been treated for an oncologist out of [facility] regarding his colon cancer. He has utilized various treatments including FOLFOX and 5-FU over the years and his disease has a progressively getting worse. Recently, he was being contemplated for a clinical trial and he did not go to the clinical trial at this was a phase I trial. The patient has had serial PET scans and CAT scans over the years most of them have been done at [facility]. For instance, his most recent PET/CT that was done on 03/21/2023 showed multiple increasing bilateral lung masses with increasing SUV compatible with worsening neoplastic process. The patient had various lung masses largest being in the right lower lobe posterior segment. At that time, he had no significant pleural effusion. The PET scan of the thorax showed i ntense uptake within the right suprahilar lesion with an SUV of 4.7. Increase uptake in the periphery of the right upper lobe with an SUV of 3.5. There was also a right infrahilar mass with SUV of 3.9. Intense activity in the periphery of the right lung measuring 7.5 SUV and intense metabolic activity in the lung mass in the left midlung with an SUV of 4.4. Another mass in the posterior right lower lobe with an SUV of 6.4. He has not been receiving any treatment for now. Furthermore, a CAT scan of the abdomen that was done on 04/27/2023 demonstrated again some mild left-sided hydronephrosis with a obstructing 1 cm Within the proximal left ureter. There was nonobstructive bilateral renal stones. There is development of a right-sided pleural effusion that has increased in size in addition to a various masses in the lung bases bilaterally as mentioned above. No evidence of any disease involving the abdomen. There was evidence of cholelithiasis. The patient also has a remote history of bladder cancer, resected surgically. He is coming in with worsening shortness of breath. No chest pain. No pleurisy or hemoptysis. No fever or chills. The echoes at 6.3 with a hemoglobin of 10.1. Sodium level is at 138, BUN is at 21 with a creatinine of 0.7. Pro-calcitonin level is at 0.08. He is currently on 4 L of oxygen by nasal cannula with a pulse ox of 96%. Review of Systems All systems: negative Constitutional: Reports weakness Eyes: denies as per HPI, denies blurred vision, denies bulging eye, denies decreased vision, denies diplopia, denies discharge, denies dry eye, denies irritation, denies itching, denies pain, denies photophobia, denies loss of peripheral vision, denies loss of vision, denies tunnel vision/blind spots Ears: deny: decreased hearing, ear discharge, earache, tinnitus Ears, nose, mouth and throat: Reports as per HPI Breasts: absent: as per HPI, gynecomastia Cardiovascular: Reports decreased exercise tolerance, Reports dyspnea on exertion Respiratory: Reports dyspnea Gastrointestinal: Reports as per HPI Genitourinary: Reports as per HPI Musculoskeletal: Reports as per HPI Musculoskeletal: absent: ankle pain, ankle stiffness, ankle swelling Integumentary: Reports as per HPI Neurological: Reports as per HPI Psychiatric: Reports as per HPI Endocrine: Reports as per HPI Hematologic/Lymphatic: Reports as per HPI Allergic/Immunologic: Reports as per HPI Past Medical History Past Medical History: Cancer, COPD, CVA/TIA, GERD/Reflux, Hypertension Additional Past Medical History / Comment(s): colon cancer stage 4 with mets lung cancer, bladder cancer post resected , kidney stones History of Any Multi-Drug Resistant Organisms: None Reported Past Surgical History: Bowel Resection, Joint Replacement, Orthopedic Surgery Past Anesthesia/Blood Transfusion Reactions: No Reported Reaction Past Psychological History: No Psychological Hx Reported Smoking Status: Former smoker Past Alcohol Use History: None Reported Past Drug Use History: Marijuana Medications and Allergies Home Medications Medication Instructions Recorded Confirmed Type Atorvastatin [Lipitor] 40 mg PO HS 06/12/23 06/12/23 History Cholecalciferol [Vitamin D3 (25 25 mcg PO DAILY 06/12/23 06/12/23 History Mcg = 1000 Iu)] Cyanocobalamin (Vitamin B-12) 1,000 mcg PO DAILY 06/12/23 06/12/23 History [Vitamin B-12] DULoxetine HCL [Cymbalta] 60 mg PO HS 06/12/23 06/12/23 History Garlic(Unknown Dose) 1 cap PO DAILY 06/12/23 06/12/23 History HYDROcodone/APAP 10-325MG [Green[place] 1 tab PO Q6H PRN 06/12/23 06/12/23 History 10-325] Ipratropium-Albuterol Nebulize 3 ml INHALATION RT-TID 06/12/23 06/12/23 History [Duoneb 0.5 mg-3 mg/3 ml Soln] Levofloxacin [Levaquin] 500 mg PO DAILY 06/12/23 06/12/23 History Metoprolol Succinate (ER) [Toprol 25 mg PO HS 06/12/23 06/12/23 History Xl] Montelukast [Singulair] 10 mg PO HS 06/12/23 06/12/23 History Morphine Sulfate ER [Ms Contin] 30 mg PO BID 06/12/23 06/12/23 History [place]-3 Fatty Acids [[place]-3] 4,000 mg PO DAILY 06/12/23 06/12/23 History Pantoprazole [Protonix] 40 mg PO HS 06/12/23 06/12/23 History Pregabalin [Lyrica] 75 mg PO BID 06/12/23 06/12/23 History Prochlorperazine [Compazine] 10 mg PO Q6H PRN 06/12/23 06/12/23 History Tamsulosin [Flomax] 0.4 mg PO HS 06/12/23 06/12/23 History guaiFENesin [Mucinex] 600 mg PO BID 06/12/23 06/12/23 History Allergies Allergy/AdvReac Type Severity Reaction Status Date / Time alprazolam [From Xanax] Allergy Unknown Verified 06/12/23 18:03 scopolamine Allergy Unknown Verified 06/12/23 18:03 Physical Exam Vitals: Vital Signs Temp Pulse Pulse Resp BP BP Pulse Ox 06/13/23 08:21 86 06/13/23 08:12 96 06/13/23 08:10 84 06/13/23 07:45 97.4 F L 76 20 129/89 94 L 06/13/23 02:00 97.8 F 77 20 113/66 94 L 06/12/23 22:17 88 06/12/23 22:07 84 06/12/23 20:00 98.0 F 86 24 152/73 94 L 06/12/23 17:47 87 22 127/92 95 06/12/23 14:44 86 06/12/23 14:35 91 06/12/23 14:07 97.3 F L 85 18 134/76 93 L Intake and Output 06/12/23 06/13/23 06/13/23 22:59 06:59 14:59 Intake Total 590 Balance 590 Intake: Oral 590 Other: # Voids 2 Weight 106.594 kg -GENERAL: The patient is alert and oriented x3, not in any mild to moderate respiratory acute distress. Obese, currently on 42 of oxygen by nasal cannula Head exam was generally normal. There was no scleral icterus or corneal arcus. Mucous membranes were moist. HEENT: Pupils are round and equally reacting to light. EOMI. No scleral icterus. No conjunctival pallor. Normocephalic, atraumatic. No pharyngeal erythema. No thyromegaly. CARDIOVASCULAR: S1 and S2 present. No murmurs, rubs, or gallops. -PULMONARY: Diminished breath on the right lung base along with dullness to percussion ABDOMEN: Soft, nontender, nondistended, normoactive bowel sounds. No palpable organomegaly. Scars of previous abdominal surgery over the anterior abdominal wall MUSCULOSKELETAL: No joint swelling or deformity. EXTREMITIES: No cyanosis, clubbing, or pedal edema. NEUROLOGICAL: Gross neurological examination did not reveal any focal deficits. SKIN: No rashes. no petechiae. Results - Laboratory Findings CBC and BMP: 06/13/23 06:08 06/13/23 06:08 PT/INR, D-dimer PT 10.6 sec (10.0-12.5) 06/12/23 14:29 INR 1.0 (<1.2) 06/12/23 14:29 Abnormal lab findings: Abnormal Labs 06/12/23 06/12/23 06/12/23 14:29 14:29 20:16 RBC 3.87 L Hgb 10.8 L Hct 33.9 L MCHC MPV Lymphocytes # Monocytes # Eosinophils # Carbon Dioxide 32 H BUN 23 H BUN/Creatinine Ratio Glucose 101 H POC Glucose (mg/dL) 148 H Total Protein 6.2 L Albumin 3.2 L 06/13/23 06/13/23 06/13/23 06:08 06:08 07:50 RBC 3.72 L Hgb 10.1 L Hct 32.8 L MCHC 30.8 L MPV 9.3 L Lymphocytes # 0.51 L Monocytes # 0.04 L Eosinophils # 0 L Carbon Dioxide BUN BUN/Creatinine Ratio 31.29 H Glucose 145 H POC Glucose (mg/dL) 146 H Total Protein Albumin - Diagnostic Findings Chest x-ray: image reviewed Assessment and Plan Plan: Acute hypoxic respiratory failure currently on 4 L of oxygen by nasal cannula Right lower lobe opacity based on the chest x-ray finding. This could be a combination of tumor and pleural effusion. The patient also has some volume loss in the right lower lobe area. Based on that, a computed tomography scan of the chest will be crucial to evaluate for lung mass/pleural effusion/pulmonary embolism especially with his history of metastatic colon cancer. Obviously, the patient has been progressing over the years and the patient's most recent PET/CT that was done in February 2023 showed progression of his underlying metastatic cancer. Pneumonia is considered to be less likely. Pro-calcitonin level is low. Shortness of breath secondary to above Metastatic colon cancer with pulmonary involvement. The patient has enlarging masses bilaterally largest metastases being in the right lower lobe. There is also developed some pleural effusion based on the most recent CAT scan of the abdomen that was done April 2023. He has utilizes various treatments for metastatic colon cancer the patient was being considered for clinical trials. His oncologist out of town. History of bladder cancer post transurethral resection of the bladder cancer History of kidney stone with a previous CAT scan of the abdomen showing some left hydronephrosis. History of nephrolithiasis History of cholelithiasis Hyperlipidemia BPH Previous history of CVA Plan We'll proceed with a CT angiogram of the chest. This will be crucial to evaluate for pulmonary embolism. At the same time we'll assess abnormalities in the right lower lobe. In my opinion, this is a combination of fluid and metastatic disease which has progressed over the years. I suspect that he may have some underlying pleural effusion that is quite loculated. I'm going to order a CAT scan of the chest and decide if the patient benefit from a diagnostic and therapeutic thoracentesis. His prognosis is obviously poor and the patient has demonstrated progression of his metastatic colon cancer. Please refer to the various CAT scan of the PET scan that are available in our system. The antibiotic coverage is empiric. Continue bronchodilators. Continue steroids. We'll continue to follow. We'll review the CAT scan of the chest will make further recommendations.
[2023-06-13] MEDS: HYDROcodone/APAP 10-325MG 1 EACH TAB PO PRN ×2 (15:27→23:16)
--- NOTE | 2023-06-13 15:53 | CT ---
EXAMINATION TYPE: CT angio chest DATE OF EXAM: 06/13/2023 COMPARISON: 03/20/2023 HISTORY: 72-year-old male shortness of breath, Dyspnea, hx colon ca mets to lung TECHNIQUE: Contiguous axial scanning of the chest after the administration of 100 mL of Isovue 370. Coronal/sagittal MIP reconstructions performed. CT DLP: 598.30mGycm. Automatic exposure control utilized for a dose reduction. FINDINGS: Right anterior chest wall injection port with catheter tip at the cavoatrial junction. Heart normal size with trace anterior pericardial fluid. No flattening of the interventricular septum reflux of contrast into the hepatic veins. Ectatic ascending aorta 3.8 cm. Bovine configuration to the aortic arch. Mild atherosclerotic arch ca lcifications. Ectatic upper descending thoracic aorta 3.1 cm. Large caliber to the main right and the pulmonary arteries measuring up to 2.9 cm suggesting underlyi ng pulmonary hypertension. There is satisfactory opacification of the pulmonary arterial system witho ut evidence for pulmonary embolus. Interval development of a moderate to large complex right pleural effusion with extensive scalloping of the margins suggesting associated complexity and areas of partial loculation. There is nearly comp lete right lower lobe collapse. Extensive pleural nodularity is present throughout. Prominent pleural nodularity within the effusion . Nodule seen on 03/20/2023 have enlarged, for example, conglomerate right suprahilar measuring up to 4. 8 x 2.7 cm now versus 2.9 x 2.2 cm, previously. 6.5 cm right lower lung versus 3.8 cm, previously. 6.3 cm at the posterior right base versus 4.9 cm, previously. 3.2 cm posterior left base versus 2.6 cm, previously. Additional nodules are present. Small hiatal hernia. We note some residual mild to moderate left-sided hydronephrosis partially visualized. Bones: DISH in the lower thoracic spine. IMPRESSION: 1. There is pulmonary arterial hypertension but no evidence for pulmonary embolus. 2. Interval development of a moderate to large complex right pleural effusion with extensive pleural nodularity/pleural disease. This results in near-complete right lower lobe collapse. 3. Other nodules seen previously have enlarged in the interval, right greater than left, compatible w ith disease progression. For example, now conglomerate right suprahilar measuring up to 4.8 cm versus 2.9 cm, previously. Largest measuring 6.5 cm versus 3.8 cm, previously. 4. Partially visualized mild to moderate left hydronephrosis. Correlate for any ongoing obstructive u ropathy. We note a ureteral stone on the patient's 03/20/2023 CT.
[2023-06-13 17:20] LABS: Glucose,Whole Blood 152 mg/dL (70-110)
[2023-06-13 17:20] LABS: Glucose,Whole Blood 157 mg/dL (70-110)
[2023-06-13] MEDS: SODIUM CHLORIDE 0.9% 1,000 ML IV SCH (17:36)
--- NOTE | 2023-06-13 20:03 | P.PN ---
Subjective This is a pleasant 72 years old male with past medical history lung cancer with brain metastatis , Previous smoker. COPD, CVA/TIA, GERD/Reflux, Hypertension. This patient follows up with oncology team as an outpatient , he was getting chemotherapy but recently it was switched to a new regiment for failure of treatment and he hadn't started yet. He is not on oxygen at home. He was taken dyspnea slowly getting worse and today was more severe shortness of breath even with little exertion so him and family decided to come to emergency room. Patient was on oral Levaquin as an outpatient. When I talked to him was in [id number] respiratory distress, he cannot talk comfortably because of his dyspnea and cannot finish full length sentence. Cough with white phlegm but no chest pain. No change in urine or bowel habits. No fever. He used to be a heavy smoker for 40 years and he quit about 6 years ago. No alcohol or illicit tracts. On admission he was hypoxic about 70% on room air. Currently he is saturating 95% on 2 L oxygen via nasal cannula, no fever rest of vitals are stable. Tachypneic Labs look stable, in is mildly anemic with hemoglobin 10.8. 06/13/2023 Patient lying in bed, significantly less tachypneic however still somewhat short of breath He is saturating 95% and 2 L, mildly tachypneic He underwent CTA of the chest showing no pulmonary embolism but there is moderate to large right pleural effusion with extensive nodularity of the pleural space and near complete right lower lobe collapse. Also showing progr essive of his metastatic lung nodules with suprahilar nodule went up to 0.9 up to 4.8 cm Also he has left [id number] hydronephrosis. Rule out obstructive uropathy Priorcalcitonin is -0.08. Discontinue cefepime. Continue with Solu-Medrol and bronchodilators Active Medications Generic Name Dose Route Start Last Admin Trade Name Freq PRN Reason Stop Dose Admin Hydrocodone Bitart/Acetaminophen 1 each 06/12/23 17:56 06/13/23 15:27 Hydrocodone/Apap 10-325mg 1 Each Tab PO 1 each Q6H PRN Administration Pain Albuterol/Ipratropium 3 ml 06/12/23 18:11 06/13/23 11:38 Ipratropium-Albuterol 3 Ml Neb INHALATION 3 ml QID PRN Administration Shortness Of Breath Or Wheezing Dextrose/Water 25 ml 06/12/23 18:15 Dextrose 50% Syringe 50 Ml IVP PER PROTOCOL PRN Hypoglycemia Protocol Dextrose/Water 50 ml 06/12/23 18:15 Dextrose 50% Syringe 50 Ml IVP PER PROTOCOL PRN Hypoglycemia Protocol Duloxetine HCl 60 mg 06/12/23 21:00 06/12/23 20:28 Duloxetine Hcl 60 Mg Capsule.Dr PO 60 mg HS YASIR Administration Enoxaparin Sodium 40 mg 06/12/23 18:13 06/13/23 08:32 Enoxaparin 40 Mg/0.4 Ml Syringe SQ 40 mg DAILY YASIR Administration Guaifenesin 600 mg 06/12/23 21:00 06/13/23 08:31 Guaifenesin 600 Mg Tablet.Er PO 600 mg BID YASIR Administration Sodium Chloride 1,000 mls @ 20 mls/hr 06/12/23 17:15 06/13/23 17:36 Saline 0.9% IV Not Given .Q24H YASIR Insulin Aspart 0 unit 06/12/23 21:00 06/13/23 17:36 Insulin Aspart (Novolog) 100 Unit/Ml Vial SQ Not Given ACHS YASIR Protocol Methylprednisolone Sodium Succinate 40 mg 06/12/23 18:15 06/13/23 15:27 Methylprednisolone Sod Succi 40 Mg/Ml 1 Ml Vial IV 40 mg Q8HR YASIR Administration Metoprolol Succinate 25 mg 06/12/23 21:00 06/12/23 20:28 Metoprolol Succinate (Er) 25 Mg Tab.Er.24h PO 25 mg HS YASIR Administration Montelukast Sodium 10 mg 06/12/23 21:00 06/12/23 20:28 Montelukast 10 Mg Tab PO 10 mg HS YASIR Administration Morphine Sulfate 30 mg 06/12/23 21:00 06/13/23 08:31 Morphine Sulfate Er 30 Mg Tablet PO 30 mg BID YASIR Administration Protocol Naloxone HCl 0.2 mg 06/12/23 17:07 Naloxone 0.4 Mg/Ml 1 Ml Vial IV Q2M PRN Opioid Reversal Pantoprazole Sodium 40 mg 06/12/23 21:00 06/12/23 20:28 Pantoprazole 40 Mg Tablet PO 40 mg HS YASIR Administration Pregabalin 75 mg 06/12/23 21:00 06/13/23 08:31 Pregabalin 75 Mg Cap PO 75 mg BID YASIR Administration Prochlorperazine Maleate 10 mg 06/12/23 17:56 Prochlorperazine 10 Mg Tab PO Q6H PRN Nausea Tamsulosin HCl 0.4 mg 06/12/23 21:00 06/12/23 20:28 Tamsulosin 0.4 Mg Cap.Er.24h PO 0.4 mg HS YASIR Administration Objective - Vital Signs Vital signs: Vital Signs Temp 97.4 F L 06/13/23 07:45 Pulse 85 06/13/23 11:51 Resp 20 06/13/23 07:45 BP 129/89 06/13/23 07:45 Pulse Ox 96 06/13/23 08:12 FiO2 Intake & Output 06/12/23 06/13/23 06/13/23 18:59 06:59 18:59 Intake Total 590 Balance 590 Weight 106.594 kg 106.594 kg Intake: Oral 590 Other: # Voids 2 - Exam GENERAL: The patient is alert and oriented x3, not in any acute distress. Well developed, well nourished. HEENT: Pupils are round and equally reacting to light. EOMI. No scleral icterus. No conjunctival pallor. Normocephalic, atraumatic. No pharyngeal erythema. No thyromegaly. CARDIOVASCULAR: S1 and S2 present. No murmurs, rubs, or gallops. -PULMONARY: Left Chest is clear to auscultation, no wheezing , no crackles. Tachypnea was decreased breath sounds on the right lung ABDOMEN: Soft, nontender, nondistended, normoactive bowel sounds. No palpable organomegaly. MUSCULOSKELETAL: No joint swelling or deformity. EXTREMITIES: No cyanosis, clubbing, or pedal edema. NEUROLOGICAL: Gross neurological examination did not reveal any focal deficits. SKIN: No rashes. no petechiae. - Labs CBC & Chem 7: 06/13/23 06:08 06/13/23 06:08 Labs: Abnormal Lab Results - Last 24 Hours (Table) 06/12/23 06/12/23 06/12/23 Range/Units 14:29 14:29 20:16 RBC 3.87 L (4.30-5.90) m/uL Hgb 10.8 L (13.0-17.5) gm/dL Hct 33.9 L (39.0-53.0) % MCHC (32.0-37.0) g/dL MPV (9.5-12.2) FL Lymphocytes # (0.90-5.00) X 10*3/uL Monocytes # (0.20-1.00) X 10*3/uL Eosinophils # (0.04-0.35) X 10*3/uL Carbon Dioxide 32 H (22-30) mmol/L BUN 23 H (9-20) mg/dL BUN/Creatinine Ratio (12.00-20.00) Ratio Glucose 101 H (74-99) mg/dL POC Glucose (mg/dL) 148 H (70-110) mg/dL Total Protein 6.2 L (6.3-8.2) g/dL Albumin 3.2 L (3.5-5.0) g/dL 06/13/23 06/13/23 06/13/23 Range/Units 06:08 06:08 07:50 RBC 3.72 L (4.30-5.90) m/uL Hgb 10.1 L (13.0-17.5) gm/dL Hct 32.8 L (39.0-53.0) % MCHC 30.8 L (32.0-37.0) g/dL MPV 9.3 L (9.5-12.2) FL Lymphocytes # 0.51 L (0.90-5.00) X 10*3/uL Monocytes # 0.04 L (0.20-1.00) X 10*3/uL Eosinophils # 0 L (0.04-0.35) X 10*3/uL Carbon Dioxide (22-30) mmol/L BUN (9-20) mg/dL BUN/Creatinine Ratio 31.29 H (12.00-20.00) Ratio Glucose 145 H (74-99) mg/dL POC Glucose (mg/dL) 146 H (70-110) mg/dL Total Protein (6.3-8.2) g/dL Albumin (3.5-5.0) g/dL 06/13/23 Range/Units 12:45 RBC (4.30-5.90) m/uL Hgb (13.0-17.5) gm/dL Hct (39.0-53.0) % MCHC (32.0-37.0) g/dL MPV (9.5-12.2) FL Lymphocytes # (0.90-5.00) X 10*3/uL Monocytes # (0.20-1.00) X 10*3/uL Eosinophils # (0.04-0.35) X 10*3/uL Carbon Dioxide (22-30) mmol/L BUN (9-20) mg/dL BUN/Creatinine Ratio (12.00-20.00) Ratio Glucose (74-99) mg/dL POC Glucose (mg/dL) 168 H (70-110) mg/dL Total Protein (6.3-8.2) g/dL Albumin (3.5-5.0) g/dL Assessment and Plan Assessment: -Lung cancers with brain metastatic -moderate to large right pleural effusion with extensive nodularity of the pleural space and near complete right lower lobe collapse. Also showing progressive of his metastatic lung nodules with suprahilar nodule went up to 0.9 up to 4.8 cm -Acute COPD exacerbation -Hypoxic respiratory failure secondary to above -Mild to moderate left hydronephrosis -Obesity with BMI of 31.9 -History of GERD -Hypertension -History of CVA/TIA Plan: Continue cefepime Solu-Medrol 40 mg Oxygen as needed Bronchodilator Appreciate pulmonary input Check renal ultrasound and consult for hydronephrosis BiPAP at night if needed. Labs and medication were reviewed.. Continue same treatment. Continue with symptomatic treatment. Resume home medication. Monitor labs and vitals. DVT and GI prophylaxis. Further recommendations as per clinical course of the patient DVT prophylaxis: Subcutaneous Lovenox GI Prophylaxis: Ppi Prognosis is guarded
[2023-06-13 20:30] LABS: Glucose,Whole Blood 195 mg/dL (70-110)
--- NOTE | 2023-06-13 20:37 | P.CONS ---
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 Patient follows with Dr. Aguirre at [place]. Patient reports he is not currently on any active treatment. He has been on multiple treatment regimens, most recently Irinotecan, receiving last treatment 6 weeks ago but was stopped due to disease progression noted on CT scan. He was referred to [facility] for evaluation for clinical trials and was recommended for phase 1, and primary oncologist was hoping for him to be accepted to phase 3, so he was subsequently referred to Dr. Redding at [facility] for palliative RT of lung and brain and is scheduled to begin next week. Patient reports that he has been having increasing shortness of breath and productive cough. His home care nurse noted his oxygen saturation to be in the low 80s and patient was beginning to become more confused at which time she called EMS. Upon admission chest x-ray revealed new moderate right pleural effusion with adjacent atelectasis and/or consolidation and suspected enlarging nodules and masses compared to previous PET CT. CT brain revealed no acute intracranial processes and a 1.1 cm metastasis in the left superior parietal lobe similar to previous brain MRI on 06/02/2023. Patient was started on empiric antibiotics, pulmonology consulted. With plans for CTA chest and possible thoracentesis pending scan results. CBC revealed WBC 6.3, hemoglobin 10.1, platelets 380,000. Procalcitonin WNL. RSV/COVID/influenza negative. Blood and sputum cultures ordered. Pt afebrile, SPO2 96% on 4L. Review of Systems 10 point ROS is negative except as stated in the HPI Past Medical History Past Medical History: Cancer, COPD, CVA/TIA, GERD/Reflux, Hypertension Additional Past Medical History / Comment(s): colon cancer stage 4 with mets lung cancer, bladder cancer post resected , kidney stones History of Any Multi-Drug Resistant Organisms: None Reported Past Surgical History: Bowel Resection, Joint Replacement, Orthopedic Surgery Past Anesthesia/Blood Transfusion Reactions: No Reported Reaction Past Psychological History: No Psychological Hx Reported Smoking Status: Former smoker Past Alcohol Use History: None Reported Past Drug Use History: Marijuana Medications and Allergies Home Medications Medication Instructions Recorded Confirmed Type Atorvastatin [Lipitor] 40 mg PO HS 06/12/23 06/12/23 History Cholecalciferol [Vitamin D3 (25 25 mcg PO DAILY 06/12/23 06/12/23 History Mcg = 1000 Iu)] Cyanocobalamin (Vitamin B-12) 1,000 mcg PO DAILY 06/12/23 06/12/23 History [Vitamin B-12] DULoxetine HCL [Cymbalta] 60 mg PO HS 06/12/23 06/12/23 History Garlic(Unknown Dose) 1 cap PO DAILY 06/12/23 06/12/23 History HYDROcodone/APAP 10-325MG [Spearfish 1 tab PO Q6H PRN 06/12/23 06/12/23 History 10-325] Ipratropium-Albuterol Nebulize 3 ml INHALATION RT-TID 06/12/23 06/12/23 History [Duoneb 0.5 mg-3 mg/3 ml Soln] Levofloxacin [Levaquin] 500 mg PO DAILY 06/12/23 06/12/23 History Metoprolol Succinate (ER) [Toprol 25 mg PO HS 06/12/23 06/12/23 History Xl] Montelukast [Singulair] 10 mg PO HS 06/12/23 06/12/23 History Morphine Sulfate ER [Ms Contin] 30 mg PO BID 06/12/23 06/12/23 History Milano-3 Fatty Acids [Milano-3] 4,000 mg PO DAILY 06/12/23 06/12/23 History Pantoprazole [Protonix] 40 mg PO HS 06/12/23 06/12/23 History Pregabalin [Lyrica] 75 mg PO BID 06/12/23 06/12/23 History Prochlorperazine [Compazine] 10 mg PO Q6H PRN 06/12/23 06/12/23 History Tamsulosin [Flomax] 0.4 mg PO HS 06/12/23 06/12/23 History guaiFENesin [Mucinex] 600 mg PO BID 06/12/23 06/12/23 History Allergies Allergy/AdvReac Type Severity Reaction Status Date / Time alprazolam [From Xanax] Allergy Unknown Verified 06/12/23 18:03 scopolamine Allergy Unknown Verified 06/12/23 18:03 Physical Exam Vitals: Vital Signs Temp Pulse Pulse Resp BP BP Pulse Ox 06/13/23 11:51 85 06/13/23 11:39 80 06/13/23 08:21 86 06/13/23 08:12 96 06/13/23 08:10 84 06/13/23 07:45 97.4 F L 76 20 129/89 94 L 06/13/23 02:00 97.8 F 77 20 113/66 94 L 06/12/23 22:17 88 06/12/23 22:07 84 06/12/23 20:00 98.0 F 86 24 152/73 94 L 06/12/23 17:47 87 22 127/92 95 06/12/23 14:44 86 Intake and Output 06/12/23 06/13/23 06/13/23 22:59 06:59 14:59 Intake Total 590 Balance 590 Intake: Oral 590 Other: # Voids 2 Weight 106.594 kg - Constitutional General appearance: no acute distress - EENT Eyes: anicteric sclerae, EOMI ENT: hearing grossly normal - Respiratory Respiratory: right: diminished, bilateral: rhonchi, wheezing - Cardiovascular Rhythm: regular Heart sounds: normal: S1, S2 - Gastrointestinal General gastrointestinal: soft, no tenderness - Integumentary Integumentary: no cyanotic - Neurologic grossly intact - Musculoskeletal Musculoskeletal: generalized weakness - Psychiatric Psychiatric: A&O x's 3 Results CBC & Chem 7: 06/13/23 06:08 06/13/23 06:08 Labs: Abnormal Lab Results - Last 24 Hours (Table) 06/12/23 06/12/23 06/12/23 Range/Units 14:29 14:29 20:16 RBC 3.87 L (4.30-5.90) m/uL Hgb 10.8 L (13.0-17.5) gm/dL Hct 33.9 L (39.0-53.0) % MCHC (32.0-37.0) g/dL MPV (9.5-12.2) FL Lymphocytes # (0.90-5.00) X 10*3/uL Monocytes # (0.20-1.00) X 10*3/uL Eosinophils # (0.04-0.35) X 10*3/uL Carbon Dioxide 32 H (22-30) mmol/L BUN 23 H (9-20) mg/dL BUN/Creatinine Ratio (12.00-20.00) Ratio Glucose 101 H (74-99) mg/dL POC Glucose (mg/dL) 148 H (70-110) mg/dL Total Protein 6.2 L (6.3-8.2) g/dL Albumin 3.2 L (3.5-5.0) g/dL 06/13/23 06/13/23 06/13/23 Range/Units 06:08 06:08 07:50 RBC 3.72 L (4.30-5.90) m/uL Hgb 10.1 L (13.0-17.5) gm/dL Hct 32.8 L (39.0-53.0) % MCHC 30.8 L (32.0-37.0) g/dL MPV 9.3 L (9.5-12.2) FL Lymphocytes # 0.51 L (0.90-5.00) X 10*3/uL Monocytes # 0.04 L (0.20-1.00) X 10*3/uL Eosinophils # 0 L (0.04-0.35) X 10*3/uL Carbon Dioxide (22-30) mmol/L BUN (9-20) mg/dL BUN/Creatinine Ratio 31.29 H (12.00-20.00) Ratio Glucose 145 H (74-99) mg/dL POC Glucose (mg/dL) 146 H (70-110) mg/dL Total Protein (6.3-8.2) g/dL Albumin (3.5-5.0) g/dL 06/13/23 Range/Units 12:45 RBC (4.30-5.90) m/uL Hgb (13.0-17.5) gm/dL Hct (39.0-53.0) % MCHC (32.0-37.0) g/dL MPV (9.5-12.2) FL Lymphocytes # (0.90-5.00) X 10*3/uL Monocytes # (0.20-1.00) X 10*3/uL Eosinophils # (0.04-0.35) X 10*3/uL Carbon Dioxide (22-30) mmol/L BUN (9-20) mg/dL BUN/Creatinine Ratio (12.00-20.00) Ratio Glucose (74-99) mg/dL POC Glucose (mg/dL) 168 H (70-110) mg/dL Total Protein (6.3-8.2) g/dL Albumin (3.5-5.0) g/dL Comments: PET/CT reviewed Chest x-ray: report reviewed CT scan - abdomen: report reviewed CT Scan - head: report reviewed Assessment and Plan (1) Colon cancer Current Visit: Yes Status: Acute Priority: High Code(s): C18.9 - MALIGNANT NEOPLASM OF COLON, UNSPECIFIED SNOMED Code(s): 854219410 (2) Shortness of breath Current Visit: Yes Status: Acute Priority: High Code(s): R06.02 - WHITNEY RTNESS OF BREATH SNOMED Code(s): 687737441 Plan: Metastatic colon adenocarcinoma: -Patient of Dr. Aguirre at [place]. Patient reports he is not currently on any active treatment. He has been on multiple treatment regimens, most recently Ir inotecan, receiving last treatment 6 weeks ago but was stopped due to disease progression noted on CT scan. He was referred to [facility] for evaluation for clinical trials and was recommended for phase 1, and primary oncologist was hoping for him to be accepted to phase 3, so he was subsequently referred to Dr. Redding at [facility] for palliative RT of lung and brain and is scheduled to begin next week. -Upon admission chest x-ray revealed new moderate right pleural effusion with adjacent atelectasis and/or consolidation and suspected enlarging nodules and masses compared to previous PET CT. CT brain revealed no acute intracranial processes and a 1.1 cm metastasis in the left superior parietal lobe similar to previous brain MRI on 06/02/2023 -Patient was started on empiric antibiotics, pulmonology consulted. CTA chest ordered, thoracentesis may be considered pending scan results. If thoracentesis warranted, will request cytology -Will continue to follow. Patient encouraged to f/u with primary oncologist upon discharge. Pending hospitalization, may have to reschedule RT
[2023-06-13] MEDS: METOPROLOL SUCCINATE (ER) 25 MG TAB.ER.24H PO SCH (22:21)
[2023-06-13] MEDS: PANTOPRAZOLE 40 MG TABLET PO SCH (22:21)
[2023-06-13] MEDS: MONTELUKAST 10 MG TAB PO SCH (22:21)
[2023-06-13] MEDS: TAMSULOSIN 0.4 MG CAP.ER.24H PO SCH (22:21)
[2023-06-13] MEDS: DULoxetine HCL 60 MG CAPSULE.DR PO SCH (22:21)
[2023-06-14] MEDS: methylPREDNISolone SOD SUCCI 40 MG/ML 1 ML VIAL IV SCH ×4 (00:11→23:58)
[2023-06-14] MEDS: HYDROcodone/APAP 10-325MG 1 EACH TAB PO PRN ×4 (05:05→23:58)
[2023-06-14] MEDS: IPRATROPIUM-ALBUTEROL 3 ML NEB INHALATION PRN ×4 (07:48→19:49)
[2023-06-14] MEDS: ENOXAPARIN 40 MG/0.4 ML SYRINGE SQ SCH (08:26)
[2023-06-14] MEDS: MORPHINE SULFATE ER 30 MG TABLET PO SCH ×2 (08:26→20:56)
--- NOTE | 2023-06-14 08:27 | US ---
EXAMINATION TYPE: US renals and bladder DATE OF EXAM: 06/13/2023 COMPARISON: CT abdomen 04/27/2023. CLINICAL INDICATION: Male, 72 years old with history of hydronephrosis; Hx hydronephrosis. Hx renal stones. Portable inpatient exam EXAM MEASUREMENTS: Right Kidney: 11.3 x 5.5 x 5.8 cm Left Kidney: 12.3 x 5.9 x 7.2 cm Right Kidney: Mild to moderate hydronephrosis Left Kidney: Mild to moderate hydronephrosis. Lower pole echogenic focus = 0.7 cm Bladder: distended, anechoic Bilateral Jets not seen IMPRESSION: Bilateral mild to moderate hydronephrosis, with renal calculi appreciated on the left. Of note, the l eft sided findings are stable compared to CT from April 2023.
[2023-06-14] MEDS: PREGABALIN 75 MG CAP PO SCH ×2 (08:28→20:56)
[2023-06-14] MEDS: guaiFENesin 600 MG TABLET.ER PO SCH ×2 (08:28→20:55)
[2023-06-14 08:32] LABS: Glucose,Whole Blood 121 mg/dL (70-110)
[2023-06-14] MEDS: INSULIN ASPART (NovoLOG) 100 UNIT/ML VIAL SQ SCH ×4 (08:32→20:55)
[2023-06-14 11:50] LABS: Glucose,Whole Blood 133 mg/dL (70-110)
--- NOTE | 2023-06-14 11:55 | XR ---
EXAMINATION TYPE: XR chest 1V portable DATE OF EXAM: 06/14/2023 11:46 AM CLINICAL INDICATION:Male, 72 years old with history of Post right sided Thoracentesis; [facility] COMPARISON: Chest radiographs from TECHNIQUE: XR chest 1V portable Frontal view of the chest. FINDINGS: Lungs/Pleura: This is with improved aeration in the right lung base. There remains persistent right l ower lung mass in the area with trace pleural effusion. The lung apices are opacified secondary to ov erlying tissue, however there is no definitive pneumothorax. Pulmonary vascularity: Unremarkable. Heart/mediastinum: Cardiomediastinal silhouette is unremarkable. Musculoskeletal: No acute osseous pathology. Other findings: Right chest wall port identified. IMPRESSION: Post thoracentesis with improvement in right lung aeration. Persistent suspected right lung mass is i dentified. No definitive pneumothorax appreciated.
--- NOTE | 2023-06-14 13:46 | P.PN ---
Subjective Progress Note Date: 06/14/23 This is a 72-year-old male patient who is coming in the hospital because of worsening shortness of breath. The patient has history of colon cancer with metastases to his lungs. This was diagnosed proximally 6 years ago and over the years, the patient has been treated for an oncologist out of regarding his colon cancer. He has utilized various treatments including FOLFOX and 5-FU over the years and his disease has a progressively getting worse. Recently, he was being contemplated for a clinical trial and he did not go to the clinical trial at this was a phase I trial. The patient has had serial PET scans and CAT scans over the years most of them have been done at [facility]. For instance, his most recent PET/CT that was done on 03/21/2023 showed multiple increasing bilateral lung masses with increasing SUV compatible with worsening neoplastic process. The patient had various lung masses largest being in the right lower lobe posterior segment. At that time, he had no significant pleural effusion. The PET scan of the thorax showed intense uptake within the right suprahilar lesion with an SUV of 4.7. Increase uptake in the periphery of the right upper lobe with an SUV of 3.5. There was also a right infrahilar mass with SUV of 3.9. Intense activity in the periphery of the right lung measuring 7.5 SUV and intense metabolic activity in the lung mass in the left midlung with an SUV of 4.4. Another mass in the posterior right lower lobe with an SUV of 6.4. He has not been receiving any treatment for now. Furthermore, a CAT scan of the abdomen that was done on 04/27/2023 demonstrated again some mild left-sided hydronephrosis with a obstructing 1 cm Within the proximal left ureter. There was nonobstructive bilateral renal stones. There is development of a right-sided pleural effusion that has increased in size in addition to a various masses in the lung bases bilaterally as mentioned above. No evidence of any disease involving the abdomen. There was evidence of cholelithiasis. The patient also has a remote history of bladder cancer, resected surgically. He is coming in with worsening shortness of breath. No chest pain. No pleurisy or hemoptysis. No fever or chills. The echoes at 6.3 with a hemoglobin of 10.1. Sodium level is at 138, BUN is at 21 with a creatinine of 0.7. Pro-calcitonin level is at 0.08. He is currently on 4 L of oxygen by nasal cannula with a pulse ox of 96%. On 06/14/2023, seeing the patient for a follow-up. The patient is still having shortness of breath even at rest. The patient's had a CAT scan of the chest yesterday and the patient was found to have a complex multiloculated right-sided pleural effusion with multiple lung masses as indicated and significant atelectasis of the right lung. Based on that, performed a bedside thoracentesis and I removed a total of 2.4 L of pleural fluid from the patient's right lung. No complications. Nevertheless 2, the patient has multiple lung masses as noted earlier consistent with metastatic disease. This is likely a malignant pleural effusion. He is on 2 L of oxygen by nasal cannula at this point in time. No other complaints otherwise. Objective - Vital Signs Vital signs: Vital Signs Temp 97.8 F 06/14/23 07:05 Pulse 88 06/14/23 08:06 Resp 18 06/14/23 07:05 BP 151/85 06/14/23 07:05 Pulse Ox 94 L 06/14/23 07:48 FiO2 Intake & Output 06/13/23 06/14/23 06/14/23 18:59 06:59 18:59 Intake Total 440 740 Balance 440 740 Intake: Intake, IV Titration 440 240 Amount Cefepime 2 gm In Sodium 200 Chloride 0.9% 100 ml @ 25 mls/hr IVPB Q8HR [facility]AS[facility] Rx# :[id number] Sodium Chloride 0.9% 1, 240 240 000 ml @ 20 mls/hr IV . Q24H [facility] Rx#:[id number] Oral 500 Other: # Voids 2 1 - Exam -GENERAL: The patient is alert and oriented x3, not in any mild to moderate respiratory acute distress. Obese, currently on 42 of oxygen by nasal cannula Head exam was generally normal. There was no scleral icterus or corneal arcus. Mucous membranes were moist. HEENT: Pupils are round and equally reacting to light. EOMI. No scleral icterus. No conjunctival pallor. Normocephalic, atraumatic. No pharyngeal erythema. No thyromegaly. CARDIOVASCULAR: S1 and S2 present. No murmurs, rubs, or gallops. -PULMONARY: Diminished breath on the right lung base along with dullness to percussion ABDOMEN: Soft, nontender, nondistended, normoactive bowel sounds. No palpable organomegaly. Scars of previous abdominal surgery over the anterior abdominal wall MUSCULOSKELETAL: No joint swelling or deformity. EXTREMITIES: No cyanosis, clubbing, or pedal edema. NEUROLOGICAL: Gross neurological examination did not reveal any focal deficits. SKIN: No rashes. no petechiae. - Labs CBC & Chem 7: 06/13/23 06:08 06/13/23 06:08 Labs: Abnormal Lab Results - Last 24 Hours (Table) 06/13/23 06/13/23 06/13/23 Range/Units 12:45 17:10 17:16 POC Glucose (mg/dL) 168 H 157 H 152 H (70-110) mg/dL 06/13/23 06/14/23 Range/Units 20:27 08:25 POC Glucose (mg/dL) 195 H 121 H (70-110) mg/dL Microbiology - Last 24 Hours (Table) 06/13/23 09:45 Gram Stain - Preliminary Sputum Sputum Culture - Preliminary 06/12/23 19:21 Blood Culture - Preliminary Blood Assessment and Plan Plan: Acute hypoxic respiratory failure currently on 2 L of oxygen nasal cannula Right lower lobe opacity based on the chest x-ray finding. This could be a combination of tumor and pleural effusion. The patient also has some volume loss in the right lower lobe area. Based on that, a computed tomography scan of the chest will be crucial to evaluate for lung mass/pleural effusion/pulmonary embolism especially with his history of metastatic colon cancer. Obviously, the patient has been progressing over the years and the patient's most recent PET/CT that was done in February 2023 showed progression of his underlying metastatic cancer. Pneumonia is considered to be less likely. Pro-calcitonin level is low. A complex multi loculated right-sided pleural effusion along with volume loss and atelectasis of the right lung base, right lower lobe and the right middle lobe in addition to multiple lung masses bilaterally. Patient underwent thoracentesis of the progression of total of 2.4 L of pleural fluid. Rule out malignant pleural effusion. No complications. Shortness of breath secondary to above Metastatic colon cancer with pulmonary involvement. The patient has enlarging masses bilaterally largest metastases being in the right lower lobe. There is also developed some pleural effusion based on the most recent CAT scan of the abdomen that was done April 2023. He has utilizes various treatments for metastatic colon cancer the patient was being considered for clinical trials. His oncologist out of town. History of bladder cancer post transurethral resection of the bladder cancer History of kidney stone with a previous CAT scan of the abdomen showing some le ft hydronephrosis. History of nephrolithiasis History of cholelithiasis Hyperlipidemia BPH Previous history of CVA Plan Reviewed the CAT scan of the chest Performed a thoracentesis A total of 2.4 L of fluid was removed from the right lung No complications Pleural fluid cytology Clinically improving Prognosis poor based above-mentioned comorbidities Please refer to the various CAT scan of the PET scan that are available in our system. The antibiotic coverage is empiric. Continue bronchodilators. Continue steroids. We'll continue to follow. We'll continue to follow
--- NOTE | 2023-06-14 13:48 | P.PCN ---
Date of Procedure: 06/14/23 Preoperative Diagnosis: Right-sided pleural effusion Postoperative Diagnosis: right-sided pleural effusion Procedure(s) Performed: Right-sided thoracentesis Anesthesia: local Surgeon: Robert Jones Condition: stable Disposition: floor Operative Findings: A time out was performed and the chest x-ray was reviewed, the appropriate side was confirmed and marked. My hands were washed immediately prior to the procedure. I wore a surgical cap, mask with protective eyewear, sterile gown and sterile gloves throughout the procedure. The patient was prepped and draped in a sterile manner using chlorhexidine scrub after the appropriate level was percussed and confirmed by ultrasound. 1% lidocaine was used to anesthesize the skin, subcutaneous tissue, superior aspect of the rib periosteum and parietal pleura. A finder needle was then introduced over the superior aspect of the rib to locate the pleural fluid; 2colored fluid was aspirated at a depth of approximately 2 cm. A 10-blade scalpel was used to arelis the skin at the insertion site. The [id number]-[id number] needle was then introduced through the skin incision into the pleural space using negative aspiration pressure and the red colometric indicator to confirm appropriate positioning of the needle. The thoracentesis catheter was then threaded without difficulty. 2400 ml of turbid colored fluid was removed without difficulty. The catheter was then removed. No immediate complications were noted during the procedure. A post-procedure chest x-ray is pending at the time of this note. The fluid will be sent for studies. Estimated blood loss is 0cc
[2023-06-14] MEDS: SODIUM CHLORIDE 0.9% 1,000 ML IV SCH (16:42)
[2023-06-14 17:16] LABS: Glucose,Whole Blood 151 mg/dL (70-110)
--- NOTE | 2023-06-14 18:09 | XR ---
KUB HISTORY: Kidney stones COMPARISON: None TECHNIQUE: 3 supine views the abdomen were obtained. FINDINGS: There is a 4.5 cm mass within the right lung. There is an 11 mm calcific density to the left at the L3-4 level which could represent a left uretera l calculus. There is an 8 mm calcific density in the right pelvis which could represent a distal righ t ureteral calcification. The bowel gas pattern is unremarkable. Degenerative changes in the lumbar spine and mild degenerative patient of the hips bilaterally. IMPRESSION: 1. Bilateral calcifications which which could possibly lie in the ureters. 2. Nonspecific bowel gas pattern. 3. 4.5 cm mass in the right lung suspicious for lung neoplasm.
[2023-06-14 20:29] LABS: Glucose,Whole Blood 177 mg/dL (70-110)
[2023-06-14] MEDS: METOPROLOL SUCCINATE (ER) 25 MG TAB.ER.24H PO SCH (20:55)
[2023-06-14] MEDS: TAMSULOSIN 0.4 MG CAP.ER.24H PO SCH (20:56)
[2023-06-14] MEDS: MONTELUKAST 10 MG TAB PO SCH (20:56)
[2023-06-14] MEDS: DULoxetine HCL 60 MG CAPSULE.DR PO SCH (20:56)
[2023-06-14] MEDS: PANTOPRAZOLE 40 MG TABLET PO SCH (20:56)
--- NOTE | 2023-06-15 02:36 | P.PN ---
Subjective This is a pleasant 72 years old male with past medical history lung cancer with brain metastatis , Previous smoker. COPD, CVA/TIA, GERD/Reflux, Hypertension. This patient follows up with oncology team as an outpatient , he was getting chemotherapy but recently it was switched to a new regiment for failure of treatment and he hadn't started yet. He is not on oxygen at home. He was taken dyspnea slowly getting worse and today was more severe shortness of breath even with little exertion so him and family decided to come to emergency room. Patient was on oral Levaquin as an outpatient. When I talked to him was in [id number] respiratory distress, he cannot talk comfortably because of his dyspnea and cannot finish full length sentence. Cough with white phlegm but no chest pain. No change in urine or bowel habits. No fever. He used to be a heavy smoker for 40 years and he quit about 6 years ago. No alcohol or illicit tracts. On admission he was hypoxic about 70% on room air. Currently he is saturating 95% on 2 L oxygen via nasal cannula, no fever rest of vitals are stable. Tachypneic Labs look stable, in is mildly anemic with hemoglobin 10.8. 06/13/2023 Patient lying in bed, significantly less tachypneic however still somewhat short of breath He is saturating 95% and 2 L, mildly tachypneic He underwent CTA of the chest showing no pulmonary embolism but there is moderate to large right pleural effusion with extensive nodularity of the pleural space and near complete right lower lobe collapse. Also showing progr essive of his metastatic lung nodules with suprahilar nodule went up to 0.9 up to 4.8 cm Also he has left [id number] hydronephrosis. Rule out obstructive uropathy Priorcalcitonin is -0.08. Discontinue cefepime. Continue with Solu-Medrol and bronchodilators 06/14/2023 Patient's breathing more comfortably and he saturating well on 2 L oxygen. His improvement with IV steroids. No need for antibiotic. Patient with no fever or leukocytosis. Patient status post thoracocentesis and 2400 mL of turbid fluid removed from the right pleural effusion. Sent for cytology. Patient currently on some omeprazole 40 mg KUB: Nonspecific gas bowel pattern. On bilateral calcification could be ureteral in origin. And there is a 4.5 cm in the right lower lung. Objective - Vital Signs Vital signs: Vital Signs Temp 97.8 F 06/14/23 07:05 Pulse 88 06/14/23 08:06 Resp 18 06/14/23 07:05 BP 151/85 06/14/23 07:05 Pulse Ox 94 L 06/14/23 07:48 FiO2 Intake & Output 06/13/23 06/14/23 06/14/23 18:59 06:59 18:59 Intake Total 440 740 Balance 440 740 Intake: Intake, IV Titration 440 240 Amount Cefepime 2 gm In Sodium 200 Chloride 0.9% 100 ml @ 25 mls/hr IVPB Q8HR YASIR Rx# :[id number] Sodium Chloride 0.9% 1, 240 240 000 ml @ 20 mls/hr IV . Q24H YASIR Rx#:[id number] Oral 500 Other: # Voids 2 1 - Exam GENERAL: The patient is alert and oriented x3, not in any acute distress. Well developed, well nourished. HEENT: Pupils are round and equally reacting to light. EOMI. No scleral icterus. No conjunctival pallor. Normocephalic, atraumatic. No pharyngeal erythema. No t hyromegaly. CARDIOVASCULAR: S1 and S2 present. No murmurs, rubs, or gallops. -PULMONARY: Left Chest is clear to auscultation, no wheezing , no crackles. Tachypnea was decreased breath sounds on the right lung ABDOMEN: Soft, nontender, nondistended, normoactive bowel sounds. No palpable organomegaly. MUSCULOSKELETAL: No joint swelling or deformity. EXTREMITIES: No cyanosis, clubbing, or pedal edema. NEUROLOGICAL: Gross neurological examination did not reveal any focal deficits. SKIN: No rashes. no petechiae. - Labs CBC & Chem 7: 06/13/23 06:08 06/13/23 06:08 Labs: Abnormal Lab Results - Last 24 Hours (Table) 06/13/23 06/13/23 06/13/23 Range/Units 12:45 17:10 17:16 POC Glucose (mg/dL) 168 H 157 H 152 H (70-110) mg/dL 06/13/23 06/14/23 Range/Units 20:27 08:25 POC Glucose (mg/dL) 195 H 121 H (70-110) mg/dL Microbiology - Last 24 Hours (Table) 06/13/23 09:45 Gram Stain - Preliminary Sputum Sputum Culture - Preliminary 06/12/23 19:21 Blood Culture - Preliminary Blood Assessment and Plan Assessment: -Lung cancers with brain metastatic, 4.5 cm mass in the right lower -moderate to large right pleural effusion with extensive nodularity of the pleural space and near complete right lower lobe collapse. Status post right thoracocentesis with 2.4. Removed. Also showing progressive of his metastatic lung nodules with suprahilar nodule went up to 0.9 up to 4.8 cm -Acute COPD exacerbation -Hypoxic respiratory failure secondary to above, improving -Mild to moderate left hydronephrosis, ultrasound showing bilateral [id number] hydronephrosis -Obesity with BMI of 31.9 -History of GERD -Hypertension -History of CVA/TIA Plan: Keep monitor the patient while of antibiotic Solu-Medrol 40 mg Oxygen as needed Bronchodilator Erythema on the case Urology team consult for hydronephrosis Labs and medication were reviewed.. Continue same treatment. Continue with symptomatic treatment. Resume home medication. Monitor labs and vitals. DVT and GI prophylaxis. Further recommendations as per clinical course of the patient DVT prophylaxis: Subcutaneous Lovenox GI Prophylaxis: Ppi Prognosis is guarded
--- NOTE | 2023-06-15 06:15 | P.GSCN ---
History of Present Illness Consult date: 06/14/23 History of present illness: 72 yo male with metastatic lung cancer to the brain. he has failed a recent chemotherapy. He is to start a new chemo in the future. He came to the hospital with increasing sob. He had an us of the abdomen that showed left hydro. His pvr is 145. He had a ct scan of the abdomen 04/27/2023 identifying a proximal left ureteral stone at 5x10mm causing mild left hydronephrosis. His cr is normal His wbc are normal.He did have a stone that he passeed years ago. He has not had any flank or upper abdominal pain. He has had no hematuria. His oncologist is in [place] who recommended he see a urologist after the ct scan in april but he hadnt to date. A kub shows the stone still in the region of the proximal ureter on the left. Review of Systems All systems: negative - Constitutional Denies fever, Denies weight loss - EENT Eyes: denies blurred vision Ears, nose, mouth and throat: Denies dysphagia - Cardiovascular Denies chest pain, Denies shortness of breath - Respiratory Denies cough, Denies 7 - Gastrointestinal Reports as per HPI - Genitourinary Denies dysuria, Denies hematuria - Integumentary Denies rash, Denies unusual bruising - Neurological Denies headaches, Denies syncope - Hematologic/Lymphatic Denies easy bleeding, Denies easy bruising Past Medical History Past Medical History: Cancer, COPD, CVA/TIA, GERD/Reflux, Hypertension Additional Past Medical History / Comment(s): colon cancer, lung cancer History of Any Multi-Drug Resistant Organisms: None Reported Past Surgical History: Bowel Resection, Joint Replacement, Orthopedic Surgery Past Anesthesia/Blood Transfusion Reactions: No Reported Reaction Past Psychological History: No Psychological Hx Reported Smoking Status: Former smoker Past Alcohol Use History: None Reported Past Drug Use History: Marijuana Medications and Allergies Home Medications Medication Instructions Recorded Confirmed Type Atorvastatin [Lipitor] 40 mg PO HS 06/12/23 06/12/23 History Cholecalciferol [Vitamin D3 (25 25 mcg PO DAILY 06/12/23 06/12/23 History Mcg = 1000 Iu)] Cyanocobalamin (Vitamin B-12) 1,000 mcg PO DAILY 06/12/23 06/12/23 History [Vitamin B-12] DULoxetine HCL [Cymbalta] 60 mg PO HS 06/12/23 06/12/23 History Garlic(Unknown Dose) 1 cap PO DAILY 06/12/23 06/12/23 History HYDROcodone/APAP 10-325MG [[place] 1 tab PO Q6H PRN 06/12/23 06/12/23 History 10-325] Ipratropium-Albuterol Nebulize 3 ml INHALATION RT-TID 06/12/23 06/12/23 History [Duoneb 0.5 mg-3 mg/3 ml Soln] Levofloxacin [Levaquin] 500 mg PO DAILY 06/12/23 06/12/23 History Metoprolol Succinate (ER) [Toprol 25 mg PO HS 06/12/23 06/12/23 History Xl] Montelukast [Singulair] 10 mg PO HS 06/12/23 06/12/23 History Morphine Sulfate ER [Ms Contin] 30 mg PO BID 06/12/23 06/12/23 History [place]-3 Fatty Acids [[place]-3] 4,000 mg PO DAILY 06/12/23 06/12/23 History Pantoprazole [Protonix] 40 mg PO HS 06/12/23 06/12/23 History Pregabalin [Lyrica] 75 mg PO BID 06/12/23 06/12/23 History Prochlorperazine [Compazine] 10 mg PO Q6H PRN 06/12/23 06/12/23 History Tamsulosin [Flomax] 0.4 mg PO HS 06/12/23 06/12/23 History guaiFENesin [Mucinex] 600 mg PO BID 06/12/23 06/12/23 History Allergies Allergy/AdvReac Type Severity Reaction Status Date / Time alprazolam [From Xanax] Allergy Unknown Verified 06/12/23 18:03 scopolamine Allergy Unknown Verified 06/12/23 18:03 Surgical - Exam Vital Signs Temp Pulse Resp BP Pulse Ox 97.3 F L 85 18 134/76 93 L 06/12/23 14:07 06/12/23 14:07 06/12/23 14:07 06/12/23 14:07 06/12/23 14:07 - General well developed, well nourished, no distress - Eyes normal ocular movement, no icteric - ENT no hearing loss, no congestion - Neck no masses, trachea midline - Respiratory mild sob but per patient much improved. normal respiratory effort, clear to auscultation - Abdomen Abdomen: soft, non tender, no guarding, no rigid, no rebound - Integumentary no rash, no abnormal pigmentation - Neurologic no disoriented, no combative - Psychiatric oriented to time, oriented to person, oriented to place, speech is normal, memory intact Results - Labs 06/13/23 06:08 06/13/23 06:08 Abnormal Lab Results - Last 24 Hours (Table) 06/13/23 06/13/23 06/13/23 Range/Units 12:45 17:10 17:16 POC Glucose (mg/dL) 168 H 157 H 152 H (70-110) mg/dL 06/13/23 06/14/23 06/14/23 Range/Units 20:27 08:25 11:49 POC Glucose (mg/dL) 195 H 121 H 133 H (70-110) mg/dL Microbiology - Last 24 Hours (Table) 06/13/23 09:45 Gram Stain - Preliminary Sputum Sputum Culture - Preliminary 06/12/23 19:21 Blood Culture - Preliminary Blood - Imaging CT scan - abdomen: report reviewed, image reviewed CT scan - pelvis: report reviewed, image reviewed US - kidney/bladder: report reviewed, image reviewed Assessment and Plan Assessment: Impression: left ureteral stone causing mild left hydro. Metastatic lung ca to brain. Plan The patient will probably need either eswl left or left ureteroscopy with laser lithotripsy eventually. He will contact his oncologist to discuss this with her so that we can eventually decide when and how we want to liberate him of this stone.
[2023-06-15 07:31] LABS: Glucose,Whole Blood 132 mg/dL (70-110)
[2023-06-15] MEDS: INSULIN ASPART (NovoLOG) 100 UNIT/ML VIAL SQ SCH ×2 (07:39→13:07)
[2023-06-15] MEDS: MORPHINE SULFATE ER 30 MG TABLET PO SCH (07:47)
[2023-06-15] MEDS: guaiFENesin 600 MG TABLET.ER PO SCH (07:48)
[2023-06-15] MEDS: PREGABALIN 75 MG CAP PO SCH (07:48)
[2023-06-15] MEDS: methylPREDNISolone SOD SUCCI 40 MG/ML 1 ML VIAL IV SCH (07:48)
[2023-06-15] MEDS: ENOXAPARIN 40 MG/0.4 ML SYRINGE SQ SCH (07:49)
[2023-06-15 08:48] LABS: Basophils # (A) 0 X 10*3/uL (0.00-0.10); Basophils % (A) 0 %; Eosinophils # (A) 0 X 10*3/uL (0.04-0.35); Eosinophils % (A) 0 %; HCT 33.7 % (39.6-50.0); HGB 10.3 g/dL (13.0-17.0); Lymphocytes # (A) 0.58 X 10*3/uL (0.90-5.00); Lymphocytes % (A) 6.6 %; MCH 26.8 pg (27.0-32.0); MCHC 30.6 g/dL (32.0-37.0); MCV 87.5 FL (80.0-97.0); Mean Platelet Volume 9.4 FL (9.5-12.2); Monocytes # (A) 0.31 X 10*3/uL (0.20-1.00); Monocytes % (A) 3.5 %; NRBC Per 100 WBC 0 X 10*3/uL (0.00-0.01); Neutrophils # (A) 7.76 X 10*3/uL (1.80-7.70); Neutrophils % (A) 88.9 %; Platelet Count 390 X 10*3/uL (140-440); RBC 3.85 X 10*6/uL (4.40-5.60); RDW 14.6 % (11.5-14.5); WBC 8.74 X 10*3/uL (4.50-10.00)
[2023-06-15 08:58] LABS: BUN/Creat Ratio 23.57 Ratio (12.00-20.00); Blood Urea Nitrogen 16.5 mg/dL (9.0-27.0); Calcium 9.3 mg/dL (8.7-10.3); Carbon Dioxide 27.9 mmol/L (21.6-31.8); Chloride 100 mmol/L (96-109); Glucose 124 mg/dL (70-110); Potassium 4.8 mmol/L (3.5-5.5); Sodium 137 mmol/L (135-145)
[2023-06-15 09:30] VITALS: BP 137/76; RESP 16; TEMP 97.7
[2023-06-15] MEDS: IPRATROPIUM-ALBUTEROL 3 ML NEB INHALATION PRN ×2 (09:33→12:34)
[2023-06-15 10:42] LABS: Appearance,BF Blood Tinged (Clear)
[2023-06-15] MEDS: HYDROcodone/APAP 10-325MG 1 EACH TAB PO PRN (11:22)
[2023-06-15 12:01] LABS: Glucose,Whole Blood 166 mg/dL (70-110)
[2023-06-15 13:02] VITALS: PULSE 76
--- NOTE | 2023-06-15 13:18 | P.PN ---
Subjective Progress Note Date: 06/15/23 This is a 72-year-old male patient who is coming in the hospital because of worsening shortness of breath. The patient has history of colon cancer with metastases to his lungs. This was diagnosed proximally 6 years ago and over the years, the patient has been treated for an oncologist out of [facility] regarding his colon cancer. He has utilized various treatments including FOLFOX and 5-FU over the years and his disease has a progressively getting worse. Recently, he was being contemplated for a clinical trial and he did not go to the clinical trial at this was a phase I trial. The patient has had serial PET scans and CAT scans over the years most of them have been done at [facility]. For instance, his most recent PET/CT that was done on 03/21/2023 showed multiple increasing bilateral lung masses with increasing SUV compatible with worsening neoplastic process. The patient had various lung masses largest being in the right lower lobe posterior segment. At that time, he had no significant pleural effusion. The PET scan of the thorax showed intense uptake within the right suprahilar lesion with an SUV of 4.7. Increase uptake in the periphery of the right upper lobe with an SUV of 3.5. There was also a right infrahilar mass with SUV of 3.9. Intense activity in the periphery of the right lung measuring 7.5 SUV and intense metabolic activity in the lung mass in the left midlung with an SUV of 4.4. Another mass in the posterior right lower lobe with an SUV of 6.4. He has not been receiving any treatment for now. Furthermore, a CAT scan of the abdomen that was done on 04/27/2023 demonstrated again some mild left-sided hydronephrosis with a obstructing 1 cm Within the proximal left ureter. There was nonobstructive bilateral renal stones. There is development of a right-sided pleural effusion that has increased in size in addition to a various masses in the lung bases bilaterally as mentioned above. No evidence of any disease involving the abdomen. There was evidence of cholelithiasis. The patient also has a remote history of bladder cancer, resected surgically. He is coming in with worsening shortness of breath. No chest pain. No pleurisy or hemoptysis. No fever or chills. The echoes at 6.3 with a hemoglobin of 10.1. Sodium level is at 138, BUN is at 21 with a creatinine of 0.7. Pro-calcitonin level is at 0.08. He is currently on 4 L of oxygen by nasal cannula with a pulse ox of 96%. On 06/14/2023, seeing the patient for a follow-up. The patient is still having shortness of breath even at rest. The patient's had a CAT scan of the chest yesterday and the patient was found to have a complex multiloculated right-sided pleural effusion with multiple lung masses as indicated and significant atelectasis of the right lung. Based on that, performed a bedside thoracentesis and I removed a total of 2.4 L of pleural fluid from the patient's right lung. No complications. Nevertheless 2, the patient has multiple lung masses as noted earlier consistent with metastatic disease. This is likely a malignant pleural effusion. He is on 2 L of oxygen by nasal cannula at this point in time. No other complaints otherwise. The patient is seen today 06/15/2023 in follow-up on the regular medical floor. He is resting comfortably in bed. Awake and alert in no acute distress. Maintaining O2 saturations in the 90s on 2 L/m per nasal cannula. He did undergo a right-sided thoracentesis yesterday with 2.4 L of fluid removed. Fluid analysis and cytology are pending. His sputum culture revealed no growth. Blood culture revealed no growth. White count 8.7. Hemoglobin 10.3. Platelets 390. Sodium 137. Potassium 4.8. Bicarb 20. BUN 16. Creatinine 0.7. Glucose 166. He is continued on DuoNeb inhalations, Solu-Medrol, Singulair, Mucinex. Lovenox for DVT prophylaxis. X-ray of the kidney ureter bladder is revealed bilateral calcifications which could possibly lie in the ureters. Nonspecific bowel gas pattern. 4.5 cm mass in the right lung suspicious for neoplasm. Objective - Vital Signs Vital signs: Vital Signs Temp 97.7 F 06/15/23 07:27 Pulse 76 06/15/23 12:45 Resp 16 06/15/23 07:27 BP 137/76 06/15/23 07:27 Pulse Ox 94 L 06/15/23 07:27 FiO2 Intake & Output 06/14/23 06/15/23 06/15/23 18:59 06:59 18:59 Output Total 2400 600 Balance -2400 -600 Output: Urine 600 Other 2400 Other: Voiding Method Toilet # Voids 1 - Exam GENERAL EXAM: Alert, pleasant 72-year-old male patient, on 2 L nasal cannula, comfortable in no apparent distress. HEAD: Normocephalic. EYES: Normal reaction of pupils, equal size. NOSE: Clear with pink turbinates. THROAT: No erythema or exudates. NECK: No masses, no JVD. CHEST: No chest wall deformity. LUNGS: Equal air entry with crackles in the right lung base, diminished. CVS: S1 and S2 normal with no audible murmur, regular rhythm. ABDOMEN: No hepatosplenomegaly, normal bowel sounds, no guarding or rigidity. Scars noted from previous surgery. SPINE: No scoliosis or deformity SKIN: No rashes CENTRAL NERVOUS SYSTEM: No focal deficits, tone is normal in all 4 extremities. EXTREMITIES: There is no peripheral edema. No clubbing, no cyanosis. Peripheral pulses are intact. - Labs CBC & Chem 7: 06/15/23 05:46 06/15/23 05:46 Labs: Abnormal Lab Results - Last 24 Hours (Table) 06/14/23 06/14/23 06/14/23 Range/Units 11:25 17:15 20:27 RBC (4.40-5.60) X 10*6/uL Hgb (13.0-17.0) g/dL Hct (39.6-50.0) % MCH (27.0-32.0) pg MCHC (32.0-37.0) g/dL RDW (11.5-14.5) % MPV (9.5-12.2) FL Neutrophils # (1.80-7.70) X 10*3/uL Lymphocytes # (0.90-5.00) X 10*3/uL Eosinophils # (0.04-0.35) X 10*3/uL BUN/Creatinine Ratio (12.00-20.00) Ratio Glucose (70-110) mg/dL POC Glucose (mg/dL) 151 H 177 H (70-110) mg/dL Fluid Appearance Blood Tinged A (Clear) 06/15/23 06/15/23 06/15/23 Range/Units 05:46 05:46 07:30 RBC 3.85 L (4.40-5.60) X 10*6/uL Hgb 10.3 L (13.0-17.0) g/dL Hct 33.7 L (39.6-50.0) % MCH 26.8 L (27.0-32.0) pg MCHC 30.6 L (32.0-37.0) g/dL RDW 14.6 H (11.5-14.5) % MPV 9.4 L (9.5-12.2) FL Neutrophils # 7.76 H (1.80-7.70) X 10*3/uL Lymphocytes # 0.58 L (0.90-5.00) X 10*3/uL Eosinophils # 0 L (0.04-0.35) X 10*3/uL BUN/Creatinine Ratio 23.57 H (12.00-20.00) Ratio Glucose 124 H (70-110) mg/dL POC Glucose (mg/dL) 132 H (70-110) mg/dL Fluid Appearance (Clear) 06/15/23 Range/Units 12:00 RBC (4.40-5.60) X 10*6/uL Hgb (13.0-17.0) g/dL Hct (39.6-50.0) % MCH (27.0-32.0) pg MCHC (32.0-37.0) g/dL RDW (11.5-14.5) % MPV (9.5-12.2) FL Neutrophils # (1.80-7.70) X 10*3/uL Lymphocytes # (0.90-5.00) X 10*3/uL Eosinophils # (0.04-0.35) X 10*3/uL BUN/Creatinine Ratio (12.00-20.00) Ratio Glucose (70-110) mg/dL POC Glucose (mg/dL) 166 H (70-110) mg/dL Fluid Appearance (Clear) Microbiology - Last 24 Hours (Table) 06/13/23 09:45 Gram Stain - Final Sputum Sputum Culture - Final 06/12/23 19:21 Blood Culture - Preliminary Blood Assessment and Plan Assessment: Acute hypoxic respiratory failure currently on 2 L of oxygen nasal cannula Right lower lobe opacity based on the chest x-ray finding. This could be a combination of tumor and pleural effusion. The patient also has some volume loss in the right lower lobe area. Based on that, a computed tomography scan of the chest will be crucial to evaluate for lung mass/pleural effusion/pulmonary embolism especially with his history of metastatic colon cancer. Obviously, the patient has been progressing over the years and the patient's most recent PET/CT that was done in February 2023 showed progression of his underlying metastatic cancer. Pneumonia is considered to be less likely. Pro-calcitonin level is low. A complex multi loculated right-sided pleural effusion along with volume loss an d atelectasis of the right lung base, right lower lobe and the right middle lobe in addition to multiple lung masses bilaterally. Patient underwent thoracentesis on 06/14/2023 with a total of 2.4 L of pleural fluid. Rule out malignant pleural effusion. No complications. Metastatic colon cancer with pulmonary involvement. The patient has enlarging masses bilaterally largest metastases being in the right lower lobe. There is also developed some pleural effusion based on the most recent CAT scan of the abdomen that was done April 2023. He has utilizes various treatments for metastatic colon cancer the patient was being considered for clinical trials. His oncologist is from out of [facility]. History of bladder cancer post transurethral resection of the bladder cancer History of kidney stone with a previous CAT scan of the abdomen showing some left hydronephrosis. History of nephrolithiasis History of cholelithiasis Hyperlipidemia BPH Previous history of CVA Plan: The patient was seen and evaluated KUB x-ray, labs and medications reviewed Pleural fluid analysis and cytology pending Continue with the current treatment plan Titrate down the FiO2 as tolerated We will continue to follow To follow closely with his oncology team I have personally seen and examined the patient, performed the documentation and the assessment and plan as written. Number of minutes spent on the visit: 10.
--- NOTE | 2023-06-15 13:25 | P.DS ---
Providers Date of admission: 06/12/23 17:07 Expected date of discharge: 06/15/23 Attending physician: Sav Fay MD Consults: 06/12/23 17:07 Consult Physician Routine Consulting Provider: Gurvinder Freeman Consult Reason/Comments: Lung CA Do you want consulting provider notified?: Yes Consult Physician Routine Consulting Provider: Robert Jones Consult Reason/Comments: Hypoxia Do you want consulting provider notified?: Yes 06/13/23 20:03 Consult Physician Routine Consulting Provider: Axel Gill Consult Reason/Comments: hydronephrosis Do you want consulting provider notified?: Yes, Notify in am Primary care physician: Floresita Shukla [facility] Course: Discharge diagnoses; -Lung cancers with brain metastatic, 4.5 cm mass in the right lower -moderate to large right pleural effusion with extensive nodularity of the pleural space and near complete right lower lobe collapse. Status post right thoracocentesis with 2.4. Removed. Also showing progressive of his metastatic lung nodules with suprahilar nodule went up to 0.9 up to 4.8 cm -Acute COPD exacerbation -Hypoxic respiratory failure secondary to above, improving -Mild to moderate left hydronephrosis, ultrasound showing bilateral [id number] hydronephrosis -Obesity with BMI of 31.9 -History of GERD -Hypertension -History of CVA/TIA Hospital course; This is a pleasant 72 years old male with past medical history lung cancer with brain metastatis , Previous smoker. COPD, CVA/TIA, GERD/Reflux, Hypertension. This patient follows up with oncology team as an outpatient , he was getting chemotherapy but recently it was switched to a new regiment for failure of treatment and he hadn't started yet. He is not on oxygen at home. He was taken dyspnea slowly getting worse and today was more severe shortness of breath even with little exertion so him and family decided to come to emergency room. Patient was on oral Levaquin as an outpatient. When I talked to him was in mild -to-moderate respiratory distress, he cannot talk comfortably because of his dyspnea and cannot finish full length sentence. Cough with white phlegm but no chest pain. No change in urine or bowel habits. No fever. He used to be a heavy smoker for 40 years and he quit about 6 years ago. No alcohol or illicit tracts. On admission he was hypoxic about 70% on room air. Currently he is saturating 9 5% on 2 L oxygen via nasal cannula, no fever rest of vitals are stable. Tachypneic Labs look stable, in is mildly anemic with hemoglobin 10.8. 06/13/2023 Patient lying in bed, significantly less tachypneic however still somewhat short of breath He is saturating 95% and 2 L, mildly tachypneic He underwent CTA of the chest showing no pulmonary embolism but there is moderate to large right pleural effusion with extensive nodularity of the pleural space and near complete right lower lobe collapse. Also showing progressive of his metastatic lung nodules with suprahilar nodule went up to 0.9 up to 4.8 cm Also he has left [id number] hydronephrosis. Rule out obstructive uropathy Priorcalcitonin is -0.08. Discontinue cefepime. Continue with Solu-Medrol and bronchodilators 06/14/2023 Patient's breathing more comfortably and he saturating well on 2 L oxygen. His improvement with IV steroids. No need for antibiotic. Patient with no fever or leukocytosis. Patient status post thoracocentesis and 2400 mL of turbid fluid removed from the right pleural effusion. Sent for cytology. Patient currently on some omeprazole 40 mg KUB: Nonspecific gas bowel pattern. On bilateral calcification could be ureteral in origin. And there is a 4.5 cm in the right lower lung. 06/15. Patient seen and examined. Currently on 2 L of oxygen. Patient keen to go home. Patient is to follow up outpatient with urology and his oncologist. PHYSICAL EXAMINATION: GENERAL: The patient is alert and oriented x3, not in any acute distress. Well developed, well nourished. HEENT: Pupils are round and equally reacting to light. EOMI. No scleral icterus. No conjunctival pallor. Normocephalic, atraumatic. No pharyngeal erythema. No thyromegaly. CARDIOVASCULAR: S1 and S2 present. No murmurs, rubs, or gallops. PULMONARY: Coarse breath some bilaterally, no wheezing or crackles. ABDOMEN: Soft, nontender, nondistended, normoactive bowel sounds. No palpable organomegaly. MUSCULOSKELETAL: No joint swelling or deformity. EXTREMITIES: No cyanosis, clubbing, or pedal edema. NEUROLOGICAL: Gross neurological examination did not reveal any focal deficits. SKIN: No rashes. Dictation was produced using [employer] dictation software. please excuse any grammatical, word or spelling errors. Patient Condition at Discharge: Good Plan - Discharge Summary Discharge Rx Participant: No New Discharge Prescriptions: New predniSONE 10 mg PO DAILY 8 Days #20 tab Continue Garlic(Unknown Dose) 1 cap PO DAILY Cholecalciferol [Vitamin D3 (25 Mcg = 1000 Iu)] 25 mcg PO DAILY [place]-3 Fatty Acids [Tyler-3] 4,000 mg PO DAILY DULoxetine HCL [Cymbalta] 60 mg PO HS Tamsulosin [Flomax] 0.4 mg PO HS Pregabalin [Lyrica] 75 mg PO BID Pantoprazole [Protonix] 40 mg PO HS Montelukast [Singulair] 10 mg PO HS Ipratropium-Albuterol Nebulize [Duoneb 0.5 mg-3 mg/3 ml Soln] 3 ml INHALATION RT-TID Morphine Sulfate ER [Ms Contin] 30 mg PO BID Cyanocobalamin (Vitamin B-12) [Vitamin B-12] 1,000 mcg PO DAILY guaiFENesin [Mucinex] 600 mg PO BID Atorvastatin [Lipitor] 40 mg PO HS Metoprolol Succinate (ER) [Toprol XL] 25 mg PO HS HYDROcodone/APAP 10-325MG [[place] 10-325] 1 tab PO Q6H PRN PRN Reason: Pain Prochlorperazine [Compazine] 10 mg PO Q6H PRN PRN Reason: Nausea Levofloxacin [Levaquin] 500 mg PO DAILY Discharge Medication List Atorvastatin [Lipitor] 40 mg PO HS 06/12/23 [History] Cholecalciferol [Vitamin D3 (25 Mcg = 1000 Iu)] 25 mcg PO DAILY 06/12/23 [History] Cyanocobalamin (Vitamin B-12) [Vitamin B-12] 1,000 mcg PO DAILY 06/12/23 [History] DULoxetine HCL [Cymbalta] 60 mg PO HS 06/12/23 [History] Garlic(Unknown Dose) 1 cap PO DAILY 06/12/23 [History] HYDROcodone/APAP 10-325MG [[place] 10-325] 1 tab PO Q6H PRN 06/12/23 [History] Ipratropium-Albuterol Nebulize [Duoneb 0.5 mg-3 mg/3 ml Soln] 3 ml INHALATION RT-TID 06/12/23 [History] Levofloxacin [Levaquin] 500 mg PO DAILY 06/12/23 [History] Metoprolol Succinate (ER) [Toprol XL] 25 mg PO HS 06/12/23 [History] Montelukast [Singulair] 10 mg PO HS 06/12/23 [History] Morphine Sulfate ER [Ms Contin] 30 mg PO BID 06/12/23 [History] Tyler-3 Fatty Acids [Tyler-3] 4,000 mg PO DAILY 06/12/23 [History] Pantoprazole [Protonix] 40 mg PO HS 06/12/23 [History] Pregabalin [Lyrica] 75 mg PO BID 06/12/23 [History] Prochlorperazine [Compazine] 10 mg PO Q6H PRN 06/12/23 [History] Tamsulosin [Flomax] 0.4 mg PO HS 06/12/23 [History] guaiFENesin [Mucinex] 600 mg PO BID 06/12/23 [History] predniSONE 10 mg PO DAILY 8 Days #20 tab 06/15/23 [Rx] Follow up Appointment(s)/Referral(s): Floresita Alvarado DO [Primary Care Provider] - 1-2 days (The office was closed for lunch please call and make follow up appointment.) Discharge Disposition: HOME SELF-CARE
[2023-06-15 19:13] LABS: Glucose, BF Source Pleural Fluid; Glucose, Body Fluid 124 mg/dL; T. Protein, Body Fluid Source Pleural Fluid; Total Protein, Body Fluid >3600 mg/dL
[2023-06-15 19:24] LABS: LDH, Body Fluid Source Pleural Fluid
== END 2023-06-15 15:52 | disposition home or self-care (01) | DRG 190 ==
LOC: EC 14:05 → 5NMEDONC 17:07
PROVIDERS: ADMIT Internal Medicine; ATTEND Internal Medicine
PROC: 0W993ZX Drainage of Right Pleural Cavity, Percutaneous Approach, Diagnostic (ICD-10-PCS; principal; 2023-06-14)
DX: J44.1 Chronic obstructive pulmonary disease with (acute) exacerbation (principal); J96.01 Acute respiratory failure with hypoxia; C78.01 Secondary malignant neoplasm of right lung; J91.8 Pleural effusion in other conditions classified elsewhere; C79.31 Secondary malignant neoplasm of brain; C18.9 Malignant neoplasm of colon, unspecified; N13.2 Hydronephrosis with renal and ureteral calculous obstruction; J98.11 Atelectasis; C78.02 Secondary malignant neoplasm of left lung; Z20.822 Contact with and (suspected) exposure to COVID-19; Z28.310 Unvaccinated for COVID-19; K21.9 Gastro-esophageal reflux disease without esophagitis; K80.20 Calculus of gallbladder without cholecystitis without obstruction; I10 Essential (primary) hypertension; N40.0 Benign prostatic hyperplasia without lower urinary tract symptoms; E78.5 Hyperlipidemia, unspecified; D64.9 Anemia, unspecified; E66.9 Obesity, unspecified; Z68.31 Body mass index [BMI] 31.0-31.9, adult; Z79.891 Long term (current) use of opiate analgesic; Z79.899 Other long term (current) drug therapy; Z87.891 Personal history of nicotine dependence; Z85.51 Personal history of malignant neoplasm of bladder; Z86.73 Personal history of transient ischemic attack (TIA), and cerebral infarction without residual deficits; Z87.442 Personal history of urinary calculi; Z96.60 Presence of unspecified orthopedic joint implant; Z92.21 Personal history of antineoplastic chemotherapy; Z88.8 Allergy status to other drugs, medicaments and biological substances
CPT/HCPCS: 36415; 70450; 71045; 71046; 71275; 74018; 76770; 80048; 80053; 82945; 83036; 83615; 83880; 84145; 84157; 84484; 85025; 85610; 85730; 87040; 87070; 87075; 87205; 87636; 88108; 88305; 89050; 93005; 94640; 94760; 96374; 99285

== ENCOUNTER 2023-06-24 12:16 | Inpatient (IN) | payer MEDICARE, BC ==
[2023-06-24] MEDS ORDERED: methylPREDNISolone SOD SUCCI 125 MG/2 ML VIAL IV STA (13:16)
[2023-06-24] MEDS ORDERED: IPRATROPIUM-ALBUTEROL 3 ML NEB INHALATION STA (13:16)
[2023-06-24] MEDS ORDERED: HYDROcodone/APAP 10-325MG 1 EACH TAB PO ONE (13:17)
--- NOTE | 2023-06-24 13:18 | ED ---
SOB HPI - General Chief Complaint: Shortness of Breath Stated Complaint: PREETI Time Seen by Provider: 06/24/23 12:25 Source: patient Mode of arrival: wheelchair Limitations: no limitations - History of Present Illness Initial Comments: 9-year-old male with past medical history of colon cancer metastatic to the lung and brain who presents to the emergency department with shortness of breath. Patient was just hospitalized from the of the . He had a thoracentesis performed and removed 2.1 L of fluid from his right lung. He states that he has been short of breath over the past couple of days. States that last night was extremely hard for him to sleep due to his breathing. He does have audible breath sounds per the patient's family members. Admits to nonproductive cough. No chest pain. Denies any lower extremity swelling. No history of heart failure. He denies chest pain. He was supposed to have his first treatment of radiation on his brain yesterday however he was too weak to go. Due to his weakness and shortness of breath, he presents to the emergency department for treatment. He denies any fevers. No vomiting. He just finished his last course of steroids. No other alleviating, precipitating or modifying factors - Related Data Home Medications Medication Instructions Recorded Confirmed Atorvastatin [Lipitor] 40 mg PO HS 06/12/23 06/24/23 Cholecalciferol [Vitamin D3 (25 25 mcg PO DAILY 06/12/23 06/24/23 Mcg = 1000 Iu)] Cyanocobalamin (Vitamin B-12) 1,000 mcg PO DAILY 06/12/23 06/24/23 [Vitamin B-12] DULoxetine HCL [Cymbalta] 60 mg PO HS 06/12/23 06/24/23 Garlic(Unknown Dose) 1 cap PO DAILY 06/12/23 06/24/23 HYDROcodone/APAP 10-325MG [[place] 1 tab PO Q6H PRN 06/12/23 06/24/23 10-325] Ipratropium-Albuterol Nebulize 3 ml INHALATION RT-TID 06/12/23 06/24/23 [Duoneb 0.5 mg-3 mg/3 ml Soln] Metoprolol Succinate (ER) [Toprol 25 mg PO HS 06/12/23 06/24/23 XL] Montelukast [Singulair] 10 mg PO HS 06/12/23 06/24/23 Morphine Sulfate ER [Ms Contin] 30 mg PO BID 06/12/23 06/24/23 [place]-3 Fatty Acids [[place]-3] 4,000 mg PO DAILY 06/12/23 06/24/23 Pantoprazole [Protonix] 40 mg PO HS 06/12/23 06/24/23 Pregabalin [Lyrica] 75 mg PO BID 06/12/23 06/24/23 Prochlorperazine [Compazine] 10 mg PO Q6H PRN 06/12/23 06/24/23 Tamsulosin [Flomax] 0.4 mg PO HS 06/12/23 06/24/23 guaiFENesin [Mucinex] 600 mg PO BID 06/12/23 06/24/23 Allergies Allergy/AdvReac Type Severity Reaction Status Date / Time alprazolam [From Xanax] Allergy Unknown Verified 06/24/23 14:06 scopolamine Allergy Unknown Verified 06/24/23 14:06 Review of Systems ROS Statement: Those systems with pertinent positive or pertinent negative responses have been documented in the HPI. ROS Other: All systems not noted in ROS Statement are negative. Past Medical History Past Medical History: Cancer, COPD, CVA/TIA, GERD/Reflux, Hypertension Additional Past Medical History / Comment(s): colon cancer, lung cancer History of Any Multi-Drug Resistant Organisms: None Reported Past Surgical History: Bowel Resection, Joint Replacement, Orthopedic Surgery Past Anesthesia/Blood Transfusion Reactions: No Reported Reaction Past Psychological History: No Psychological Hx Reported Smoking Status: Former smoker Past Alcohol Use History: None Reported Past Drug Use History: Marijuana General Exam Limitations: no limitations General appearance: alert, in no apparent distress Head exam: Present: atraumatic, normocephalic, normal inspection Eye exam: Present: normal appearance, PERRL, EOMI. Absent: scleral icterus, c onjunctival injection, periorbital swelling Respiratory exam: Present: wheezes (left base), accessory muscle use, decreased breath sounds (right base), other (Tachypnea) Cardiovascular Exam: Present: regular rate, normal rhythm, normal heart sounds. Absent: systolic murmur, diastolic murmur, rubs, gallop, clicks GI/Abdominal exam: Present: soft, normal bowel sounds. Absent: distended, tenderness, guarding, rebound, rigid Neurological exam: Present: alert, oriented X3, CN II-XII intact Psychiatric exam: Present: normal affect, normal mood Skin exam: Present: warm, dry, intact, normal color. Absent: rash Course Vital Signs 06/24/23 06/24/23 06/24/23 12:20 14:13 14:24 Temperature 98.2 F Pulse Rate 91 86 88 Respiratory 26 H Rate Blood Pressure 135/82 O2 Sat by Pulse 96 Oximetry Medical Decision Making - Medical Decision Making Was pt. sent in by a medical professional or institution (, PA, OAKES MACHINE OPERATOR, urgent care, hospital, or fpc...) When possible be specific @ -No Did you speak to anyone other than the patient for history (EMS, parent, family, police, friend...)? What history was obtained from this source @ -Spoke with the patient's family member Did you review nursing and triage notes (agree or disagree)? Why? @ -I reviewed and agree with nursing and triage notes Were old charts reviewed (outside hosp., previous admission, EMS record, old EKG, old radiological studies, urgent care reports/EKG's, fpc records)? Report findings @ -I reviewed the patient's chart from the when he was discharged Differential Diagnosis (chest pain, altered mental status, abdominal pain women, abdominal pain men, vaginal bleeding, weakness, fever, dyspnea, syncope, headache, dizziness, GI bleed, back pain, seizure, CVA, palpatations, mental health, musculoskeletal)? @ -Differential Dyspnea: Coronary syndrome, arrhythmia, tamponade, asthma, COPD, pulmonary embolism, pneumonia, pneumothorax, pulmonary effusion, anaphylaxis, diabetic ketoacidosis, flailed chest, pulmonary contusion, diaphragmatic rupture, anemia, neuromuscular, this is not meant to be an all-inclusive list. EKG interpreted by me (3pts min.). @ -Yes and demonstrates sinus rhythm with a rate of 91. [place] interval 182. QRS 92. QTC of 403. Left anterior fascicular breath. No acute ST segment elevations X-rays interpreted by me (1pt min.). @ -Yes and demonstrates large right-sided pleural effusion with pulmonary masses CT interpreted by me (1pt min.). @ -None done U/S interpreted by me (1pt. min.). @ -None done What testing was considered but not performed or refused? (CT, X-rays, U/S, labs)? Why? @ -None What meds were considered but not given or refused? Why? @ -None Did you discuss the management of the patient with other professionals (professionals i.e. , PA, OAKES MACHINE OPERATOR, lab, RT, psych nurse, health care social worker, health care social worker, teacher, sustainability officer, outpatient case manager)? Give summary @ -Spoke with Dr. Drake from [facility] Was smoking cessation discussed for >3mins.? @ -No Was critical care preformed (if so, how long)? @ -No Were there social determinants of health that impacted care today? How? (Homelessness, low income, unemployed, alcoholism, drug addiction, transportation, low edu. Level, literacy, decrease access to med. care, senior care, rehab)? @ -No Was there de-escalation of care discussed even if they declined (Discuss DNR or withdrawal of care, Hospice)? DNR status @ -No What co-morbidities impacted this encounter? (DM, HTN, Smoking, COPD, CAD, Cancer, CVA, ARF, Chemo, Hep., AIDS, mental health diagnosis, sleep apnea, morbid obesity)? @ -Colon cancer with metastases Was patient admitted / discharged? Hospital course, mention meds given and route, prescriptions, significant lab abnormalities, going to OR and other pertinent info. @ -Admitted. Upon arrival patient was seen in room 25. He is hooked to continuous pulse ox and cardiac monitoring. 12 EKG is obtained and laboratory studies are conducted. He remains on 3 L of oxygen which is higher than his typical 2 L. IV is established. Laboratory studies are conducted. Chest x-ray is performed which demonstrates a large right-sided pleural effusion. He is wheezy and therefore he is given 125 of Solu-Medrol and a DuoNeb breathing treatment. He continues to have diminished breath sounds in the right lung base. I feel that the patient would benefit once again from thoracentesis. Will admit the patient for pulmonology consultation. Spoke with Dr. Drake for the admission Undiagnosed new problem with uncertain prognosis? @ -No Drug Therapy requiring intensive monitoring for toxicity (Heparin, Nitro, Insuli n, Cardizem)? @ -No Were any procedures done? @ -No Diagnosis/symptom? @ -Acute respiratory insufficiency, acute large right-sided pleural effusion, history of colon cancer with lung metastases, COPD Acute, or Chronic, or Acute on Chronic? @ -Acute on chronic Uncomplicated (without systemic symptoms) or Complicated (systemic symptoms)? @ -Complicated Side effects of treatment? @ -No Exacerbation, Progression, or Severe Exacerbation? @ -Yes Poses a threat to life or bodily function? How? (Chest pain, [place], MS, pneumonia, PE, COPD, DKA, ARF, appy, cholecystitis, CVA, Diverticulitis, Homicidal, Suicidal, threat to staff... and all critical care pts) @ -yes, patient has increased work of breathing - Lab Data Result diagrams: 06/24/23 13:37 06/24/23 13:37 Lab Results 06/24/23 06/24/23 06/24/23 Range/Units 13:37 13:37 13:37 WBC 7.9 (3.8-10.6) k/uL RBC 4.04 L (4.30-5.90) m/uL Hgb 11.1 L (13.0-17.5) gm/dL Hct 35.4 L (39.0-53.0) % MCV 87.5 (80.0-100.0) fL MCH 27.5 (25.0-35.0) pg MCHC 31.5 (31.0-37.0) g/dL RDW 15.2 (11.5-15.5) % Plt Count 278 (150-450) k/uL MPV 7.2 Neutrophils % 75 % Lymphocytes % 17 % Monocytes % 5 % Eosinophils % 2 % Basophils % 0 % Neutrophils # 5.9 (1.3-7.7) k/uL Lymphocytes # 1.3 (1.0-4.8) k/uL Monocytes # 0.4 (0-1.0) k/uL Eosinophils # 0.2 (0-0.7) k/uL Basophils # 0.0 (0-0.2) k/uL Hypochromasia Slight PT 10.2 (10.0-12.5) sec INR 0.9 (<1.2) APTT 31.0 H (22.0-30.0) sec Sodium 138 (137-145) mmol/L Potassium 4.4 (3.5-5.1) mmol/L Chloride 101 (98-107) mmol/L Carbon Dioxide 31 H (22-30) mmol/L Anion Gap 6 mmol/L BUN 21 H (9-20) mg/dL Creatinine 0.69 (0.66-1.25) mg/dL Est GFR (CKD-EPI)AfAm >90 (>60 ml/min/1.73 sqM) Est GFR (CKD-EPI)NonAf >90 (>60 ml/min/1.73 sqM) Glucose 110 H (74-99) mg/dL Plasma Lactic Acid Remi (0.7-2.0) mmol/L Calcium 8.6 (8.4-10.2) mg/dL Total Bilirubin 0.7 (0.2-1.3) mg/dL AST 20 (17-59) U/L ALT 16 (4-49) U/L Alkaline Phosphatase 89 (38-126) U/L Troponin I (0.000-0.034) ng/mL NT-Pro-B Natriuret Pep 1140 pg/mL Total Protein 5.7 L (6.3-8.2) g/dL Albumin 3.0 L (3.5-5.0) g/dL 06/24/23 06/24/23 Range/Units 13:37 13:37 WBC (3.8-10.6) k/uL RBC (4.30-5.90) m/uL Hgb (13.0-17.5) gm/dL Hct (39.0-53.0) % MCV (80.0-100.0) fL MCH (25.0-35.0) pg MCHC (31.0-37.0) g/dL RDW (11.5-15.5) % Plt Count (150-450) k/uL MPV Neutrophils % % Lymphocytes % % Monocytes % % Eosinophils % % Basophils % % Neutrophils # (1.3-7.7) k/uL Lymphocytes # (1.0-4.8) k/uL Monocytes # (0-1.0) k/uL Eosinophils # (0-0.7) k/uL Basophils # (0-0.2) k/uL Hypochromasia PT (10.0-12.5) sec INR (<1.2) APTT (22.0-30.0) sec Sodium (137-145) mmol/L Potassium (3.5-5.1) mmol/L Chloride (98-107) mmol/L Carbon Dioxide (22-30) mmol/L Anion Gap mmol/L BUN (9-20) mg/dL Creatinine (0.66-1.25) mg/dL Est GFR (CKD-EPI)AfAm (>60 ml/min/1.73 sqM) Est GFR (CKD-EPI)NonAf (>60 ml/min/1.73 sqM) Glucose (74-99) mg/dL Plasma Lactic Acid Remi 0.9 (0.7-2.0) mmol/L Calcium (8.4-10.2) mg/dL Total Bilirubin (0.2-1.3) mg/dL AST (17-59) U/L ALT (4-49) U/L Alkaline Phosphatase (38-126) U/L Troponin I 0.021 (0.000-0.034) ng/mL NT-Pro-B Natriuret Pep pg/mL Total Protein (6.3-8.2) g/dL Albumin (3.5-5.0) g/dL Disposition Clinical Impression: Colon cancer, Pleural effusion, Acute respiratory insufficiency Disposition: ADMITTED IP TO THIS [facility] Condition: Serious Is patient prescribed a controlled substance at d/c from ED?: No Time of Disposition: 15:28 Decision to Admit Reason: Admit from EC Decision Date: 06/24/23 Decision Time: 15:28
--- NOTE | 2023-06-24 13:51 | XR ---
EXAMINATION TYPE: XR chest 2V DATE OF EXAM: 06/24/2023 COMPARISON: 06/14/2023. HISTORY: Difficulty breathing. TECHNIQUE: Frontal and lateral views of the chest are obtained. IMPRESSION: Right-sided Mediport is unchanged. The cardiac silhouette is moderately enlarged and there is mild ed cara. Moderate to large right pleural effusion. There appears to be a large mass within the right mid lung which is obscured by airspace opacity. This measures approximately 4.7 cm in diameter. Additiona l nodule in the left midlung measures approximately 1.4 cm in diameter.
[2023-06-24 14:19] LABS: INR 0.9 (<1.2); Prothrombin Time 10.2 sec (10.0-12.5)
[2023-06-24 14:25] LABS: Basophils % (A) 0 %; Eosinophils # (A) 0.2 k/uL (0-0.7); Eosinophils % (A) 2 %; HCT 35.4 % (39.0-53.0); HGB 11.1 gm/dL (13.0-17.5); Hypochromasia Slight; Lymphocytes # (A) 1.3 k/uL (1.0-4.8); Lymphocytes % (A) 17 %; MCH 27.5 pg (25.0-35.0); MCHC 31.5 g/dL (31.0-37.0); MCV 87.5 fL (80.0-100.0); Mean Platelet Volume 7.2; Monocytes # (A) 0.4 k/uL (0-1.0); Monocytes % (A) 5 %; Neutrophils # (A) 5.9 k/uL (1.3-7.7); Neutrophils % (A) 75 %; Platelet Count 278 k/uL (150-450); RBC 4.04 m/uL (4.30-5.90); RDW 15.2 % (11.5-15.5); WBC 7.9 k/uL (3.8-10.6)
[2023-06-24 14:36] LABS: ALT 16 U/L (4-49); AST 20 U/L (17-59); African American GFR (CKD) >90 (>60 ml/min/1.73 sqM); Alkaline Phosphatase 89 U/L (38-126); Anion Gap 6 mmol/L; Blood Urea Nitrogen 21 mg/dL (9-20); Calcium 8.6 mg/dL (8.4-10.2); Carbon Dioxide 31 mmol/L (22-30); Chloride 101 mmol/L (98-107); Glucose 110 mg/dL (74-99); Non-African American GFR(CKD) >90 (>60 ml/min/1.73 sqM); Potassium 4.4 mmol/L (3.5-5.1); Sodium 138 mmol/L (137-145); Total Bilirubin 0.7 mg/dL (0.2-1.3); Total Protein 5.7 g/dL (6.3-8.2)
[2023-06-24 14:44] LABS: NT-Pro-B-Type Natriuretic Pept 1140 pg/mL
[2023-06-24] MEDS ORDERED: NALOXONE 0.4 MG/ML 1 ML VIAL IV PRN (15:28)
[2023-06-24] MEDS ORDERED: PROCHLORPERAZINE 10 MG TAB PO PRN (15:51)
--- NOTE | 2023-06-24 16:42 | P.HPIM ---
History of Present Illness H&P Date: 06/24/23 Patient is a 72-year-old male with with history of lung cancer with brain metastases, colon cancer with metastatic disease, bladder cancer, COPD, former smoker, CVA/TIA, GERD, hypertension presenting with shortness of breath. Patient was recently admitted and discharged on 06/19 similar complaints. He had right thoracentesis with 2.4 L removed, his scans showed progressive metas tatic lung nodules. He was sent home with steroids. Follow-up with primary care, urology and pulmonology. His oncologist is in [place], and due to treatment failure, he was recommended to go to [facility] for experimental treatment. He is now started that as of now. Today he noticed that he was having more difficulty breathing with ambulation. He normally uses 2 L of oxygen at home. He was supposed to see radiation oncology for brain radiation as well as palliative care, but was asked to come to the hospital for further evaluation. He denies any fevers, chills, abdominal pain, chest pain, urinary or bowel complaints. In the ED, temperature was 98.2, pulse 91, respiratory rate 26, blood pressure 135/80, saturating at 96% on 2 L. WBC 7.9, hemoglobin 11.1, bicarb 31, creatinine 0.69, glucose 110, lactate 0.9, proBNP, troponin 0.021. Chest x-ray independently interpreted, shows right-sided pleural effusion, right-sided nodule large, and also left-sided nodule. Pertinent positives and negatives as discussed in HPI, a complete review of systems was performed and all other systems are negative. Patient seen and examined at bedside. Vital signs reviewed General: nontoxic, no distress, appears at stated age, chronically ill-appearing Derm: warm, dry Head: atraumatic, normocephalic, symmetric Eyes: EOMI, no lid lag, anicteric sclera, pupils equal round reactive to light ENT: Nose and ears atraumatic Neck: No thyromegaly, supple Mouth: no lip lesion, mucus membranes moist Cardiovascular: S1S2 reg, no murmur, no edema Lungs: Bilateral rales, worse on the right, no wheeze, no accessory muscle use, supplemental oxygen Abdominal: soft, nontender to palpation, no guarding, no appreciable organomegaly Ext: no gross muscle atrophy, muscle strength muscle strength 5 out of 5 in all 4 extremities, no contractures Neuro: CN II-XII grossly intact Psych: Alert, oriented, appropriate affect Assessment/Plan: Active: Acute on chronic hypoxic respiratory failure Recurrent right-sided pleural effusion Lung cancer with brain metastases COPD, without exacerbation -Patient has a pretty sizable right-sided pleural effusion that may need draining -Pulmonology has been consulted -Due to recurrent right-sided pleural effusion setting of lung cancer, may consider pigtail catheter placement for palliation -Continue to wean oxygen -Continue DuoNeb's 3 times a day -Pain control with [place] 10 every 6 hours as needed, monitor for respiratory depression Chronic: Hypertension GERD CVA/TIA Peripheral neuropathy History of colon cancer with metastases History of bladder cancer The patient is admitted with an anticipated less than 2 midnight stay as observation status for evaluation of recurrent right pleural effusion. Surrogate decision-maker: Significant other CODE STATUS: Full code DVT prophylaxis: SCDs Anticipated discharge date: Pending clinical course Anticipated discharge place: Pending clinical course A total of 55 minutes was spent on the care of this complex patient more than 50% of the time was spent in counseling and care coordination. Past Medical History Past Medical History: Cancer, COPD, CVA/TIA, GERD/Reflux, Hypertension Additional Past Medical History / Comment(s): colon cancer, lung cancer History of Any Multi-Drug Resistant Organisms: None Reported Past Surgical History: Bowel Resection, Joint Replacement, Orthopedic Surgery Past Anesthesia/Blood Transfusion Reactions: No Reported Reaction Past Psychological History: No Psychological Hx Reported Smoking Status: Former smoker Past Alcohol Use History: None Reported Past Drug Use History: Marijuana Medications and Allergies Home Medications Medication Instructions Recorded Confirmed Type Atorvastatin [Lipitor] 40 mg PO HS 06/12/23 06/24/23 History Cholecalciferol [Vitamin D3 (25 25 mcg PO DAILY 06/12/23 06/24/23 History Mcg = 1000 Iu)] Cyanocobalamin (Vitamin B-12) 1,000 mcg PO DAILY 06/12/23 06/24/23 History [Vitamin B-12] DULoxetine HCL [Cymbalta] 60 mg PO HS 06/12/23 06/24/23 History Garlic(Unknown Dose) 1 cap PO DAILY 06/12/23 06/24/23 History HYDROcodone/APAP 10-325MG [[place] 1 tab PO Q6H PRN 06/12/23 06/24/23 History 10-325] Ipratropium-Albuterol Nebulize 3 ml INHALATION RT-TID 06/12/23 06/24/23 History [Duoneb 0.5 mg-3 mg/3 ml Soln] Metoprolol Succinate (ER) [Toprol 25 mg PO HS 06/12/23 06/24/23 History XL] Montelukast [Singulair] 10 mg PO HS 06/12/23 06/24/23 History Morphine Sulfate ER [Ms Contin] 30 mg PO BID 06/12/23 06/24/23 History Dorr-3 Fatty Acids [[place]orr-3] 4,000 mg PO DAILY 06/12/23 06/24/23 History Pantoprazole [Protonix] 40 mg PO HS 06/12/23 06/24/23 History Pregabalin [Lyrica] 75 mg PO BID 06/12/23 06/24/23 History Prochlorperazine [Compazine] 10 mg PO Q6H PRN 06/12/23 06/24/23 History Tamsulosin [Flomax] 0.4 mg PO HS 06/12/23 06/24/23 History guaiFENesin [Mucinex] 600 mg PO BID 06/12/23 06/24/23 History Allergies Allergy/AdvReac Type Severity Reaction Status Date / Time alprazolam [From Xanax] Allergy Unknown Verified 06/24/23 14:06 scopolamine Allergy Unknown Verified 06/24/23 14:06 Physical Exam Vitals: Vital Signs Temp Pulse Resp BP Pulse Ox 06/24/23 16:04 81 20 95/62 96 06/24/23 14:24 88 06/24/23 14:13 86 06/24/23 12:20 98.2 F 91 26 H 135/82 96 Intake and Output 06/24/23 06/24/23 06/24/23 06:59 14:59 22:59 Other: Weight 106.594 kg Results CBC & Chem 7: 06/24/23 13:37 06/24/23 13:37 Labs: Abnormal Lab Results - Last 24 Hours (Table) 06/24/23 06/24/23 06/24/23 Range/Units 13:37 13:37 13:37 RBC 4.04 L (4.30-5.90) m/uL Hgb 11.1 L (13.0-17.5) gm/dL Hct 35.4 L (39.0-53.0) % APTT 31.0 H (22.0-30.0) sec Carbon Dioxide 31 H (22-30) mmol/L BUN 21 H (9-20) mg/dL Glucose 110 H (74-99) mg/dL Total Protein 5.7 L (6.3-8.2) g/dL Albumin 3.0 L (3.5-5.0) g/dL
[2023-06-24] MEDS: HYDROcodone/APAP 10-325MG 1 EACH TAB PO PRN (18:43)
[2023-06-24] MEDS ORDERED: IPRATROPIUM-ALBUTEROL 3 ML NEB INHALATION SCH (20:00)
[2023-06-24] MEDS: MORPHINE SULFATE ER 30 MG TABLET PO SCH (20:50)
[2023-06-24] MEDS: PANTOPRAZOLE 40 MG TABLET PO SCH (20:50)
[2023-06-24] MEDS: ATORVASTATIN 40 MG TAB PO SCH (20:50)
[2023-06-24] MEDS: guaiFENesin 600 MG TABLET.ER PO SCH (20:51)
[2023-06-24] MEDS: METOPROLOL SUCCINATE (ER) 25 MG TAB.ER.24H PO SCH (20:51)
[2023-06-24] MEDS: DULoxetine HCL 60 MG CAPSULE.DR PO SCH (20:51)
[2023-06-24] MEDS: PREGABALIN 75 MG CAP PO SCH (20:51)
[2023-06-24] MEDS: MONTELUKAST 10 MG TAB PO SCH (20:51)
[2023-06-24] MEDS: TAMSULOSIN 0.4 MG CAP.ER.24H PO SCH (20:51)
[2023-06-25] MEDS ORDERED: IPRATROPIUM-ALBUTEROL 3 ML NEB INHALATION PRN (00:22)
--- NOTE | 2023-06-25 05:18 | P.CNPUL ---
History of Present Illness Consult date: 06/25/23 Requesting physician: Michaelle Lubin Reason for consult: pleural effusion Chief complaint: Shortness of breath History of present illness: I am seeing this patient in consultation today 06/25/2023 in the emergency room after he presented with progressively worsening shortness of breath since his recent hospital discharge on June 15. He was found to have a large right- sided pleural effusion. Patient is a 72-year-old white male with past medical history significant for colon cancer with metastasis to the lung and brain, bladder cancer with previous resection, hypertension, hyperlipidemia, CVA/TIA, and COPD. He follows with an oncologist out of [facility]. Despite multiple previous treatment regimens, there is evidence of disease progression. Most recent PET scan performed at our facility shows multiple increasing bilateral lung masses with increasing SUV values compatible with worsening neoplastic process. He was admitted to [facility] earlier this month for similar symptoms. He was found to have a large right-sided pleural effusion as demonstrated by chest CTA. There was diffuse pulmonary metastasis with multiple bilateral pulmonary nodules and masses. Patient did undergo a right-sided thoracentesis on June 14, and a total of 2.4 L of fluid was drained. Fluid was exudative. No cytological malignant cells were identified. No bacterial organisms cultured. Patient is currently sitting up in bed, on 3 L/m nasal cannula, in no acute distress. Patient reportedly has had increasing shortness of breath over the last week or so. He's had trouble sleeping. He woke up in the middle the night yesterday and was acutely short of breath. Per his , he was twitching. Did not lose consciousness. He does admit a mostly nonproductive cough. Denies any fever, hemoptysis, chest pain. No significant orthopnea, lower extremity swelling. Chest x-ray on arrival demonstrated a recurrent moderate to large right-sided pleural effusion. There was also some associated cardiomegaly and mild pulmonary congestion. Previous effusion was exudative, and is likely the cause of his shortness of breath. There was also redemonstration of the previous discussed pulmonary nodules/masses. CBC on arrival is unremarkable, no leukocytosis. BMP shows sodium 138, potassium 4.4, chloride 11, serum bicarbonate 31, BUN 21, creatinine 0.69, glucose 110. Lactic acid level 0.9. NT proBNP 1140. Troponin 0.021. Negative for COVID-19. He will be admitted to the general medical floor once bed available. Review of Systems REVIEW OF SYSTEMS: CONSTITUTIONAL: Denies any recent significant weight loss or weight gain. EYES: Denies change in vision. EARS, NOSE, MOUTH, THROAT: Denies headaches, denies sore throat. CARDIOVASCULAR: Denies chest pain, palpitations or syncopal episodes. RESPIRATORY: See HPI GASTROINTESTINAL: Denies change in appetite, abdominal pain, nausea and vomiting, or diarrhea GENITOURINARY: Denies hematuria, denies infections. MUSKULOSKELETAL: Denies pain, denies swelling. INTEGUMENTARY: Denies rash, denies eczema. NEUROLOGICAL: Denies recent memory loss, no recent seizure activity. PSYCHIATRIC: Denies anxiety, denies depression. HEMATOLOGIC/LYMPHATIC: Denies anemia, denies enlarged lymph node Past Medical History Past Medical History: Cancer, COPD, CVA/TIA, GERD/Reflux, Hypertension Additional Past Medical History / Comment(s): colon cancer, lung cancer History of Any Multi-Drug Resistant Organisms: None Reported Past Surgical History: Bowel Resection, Joint Replacement, Orthopedic Surgery Past Anesthesia/Blood Transfusion Reactions: No Reported Reaction Past Psychological History: No Psychological Hx Reported Smoking Status: Former smoker Past Alcohol Use History: None Reported Past Drug Use History: Marijuana Medications and Allergies Home Medications Medication Instructions Recorded Confirmed Type Atorvastatin [Lipitor] 40 mg PO HS 06/12/23 06/24/23 History Cholecalciferol [Vitamin D3 (25 25 mcg PO DAILY 06/12/23 06/24/23 History Mcg = 1000 Iu)] Cyanocobalamin (Vitamin B-12) 1,000 mcg PO DAILY 06/12/23 06/24/23 History [Vitamin B-12] DULoxetine HCL [Cymbalta] 60 mg PO HS 06/12/23 06/24/23 History Garlic(Unknown Dose) 1 cap PO DAILY 06/12/23 06/24/23 History HYDROcodone/APAP 10-325MG [[place] 1 tab PO Q6H PRN 06/12/23 06/24/23 History 10-325] Ipratropium-Albuterol Nebulize 3 ml INHALATION RT-TID 06/12/23 06/24/23 History [Duoneb 0.5 mg-3 mg/3 ml Soln] Metoprolol Succinate (ER) [Toprol 25 mg PO HS 06/12/23 06/24/23 History XL] Montelukast [Singulair] 10 mg PO HS 06/12/23 06/24/23 History Morphine Sulfate ER [Ms Contin] 30 mg PO BID 06/12/23 06/24/23 History [place]-3 Fatty Acids [[place]-3] 4,000 mg PO DAILY 06/12/23 06/24/23 History Pantoprazole [Protonix] 40 mg PO HS 06/12/23 06/24/23 History Pregabalin [Lyrica] 75 mg PO BID 06/12/23 06/24/23 History Prochlorperazine [Compazine] 10 mg PO Q6H PRN 06/12/23 06/24/23 History Tamsulosin [Flomax] 0.4 mg PO HS 06/12/23 06/24/23 History guaiFENesin [Mucinex] 600 mg PO BID 06/12/23 06/24/23 History Allergies Allergy/AdvReac Type Severity Reaction Status Date / Time alprazolam [From Xanax] Allergy Unknown Verified 06/24/23 14:06 scopolamine Allergy Unknown Verified 06/24/23 14:06 Physical Exam Vitals: Vital Signs Temp Pulse Pulse Resp BP BP Pulse Ox 06/25/23 01:52 76 20 124/63 96 06/24/23 20:20 77 06/24/23 20:10 80 06/24/23 20:00 80 20 118/67 97 06/24/23 18:35 80 18 97/52 95 06/24/23 16:04 81 20 95/62 96 06/24/23 14:24 88 06/24/23 14:13 86 06/24/23 12:20 98.2 F 91 26 H 135/82 96 Intake and Output 06/24/23 06/24/23 06/25/23 14:59 22:59 06:59 Other: Weight 106.594 kg GENERAL EXAM: Alert, 72-year-old obese white male, comfortable in no apparent distress. HEAD: Normocephalic and atraumatic EYES: Normal reaction of pupils, equal size. NOSE: Clear with pink turbinates. THROAT: No erythema or exudates. NECK: No masses, no JVD. CHEST: No chest wall deformity. LUNGS: Right lower lobe dullness. Also, faint expiratory wheezes heard throughout. On 3 L/m nasal cannula. No conversational dyspnea or accessory m uscle use.. CVS: S1 and S2 normal with no audible murmur, regular rhythm. No extra heart sounds ABDOMEN: No hepatosplenomegaly, active bowel sounds, no guarding or rigidity. SPINE: No scoliosis or deformity SKIN: No rashes CENTRAL NERVOUS SYSTEM: No focal deficits, tone is normal in all 4 extremities. EXTREMITIES: There is no peripheral edema, clubbing, or cyanosis. Peripheral pulses are intact. Results - Laboratory Findings CBC and BMP: 06/24/23 13:37 06/24/23 13:37 PT/INR, D-dimer PT 10.2 sec (10.0-12.5) 06/24/23 13:37 INR 0.9 (<1.2) 06/24/23 13:37 Abnormal lab findings: Abnormal Labs 06/24/23 06/24/23 06/24/23 13:37 13:37 13:37 RBC 4.04 L Hgb 11.1 L Hct 35.4 L APTT 31.0 H Carbon Dioxide 31 H BUN 21 H Glucose 110 H Total Protein 5.7 L Albumin 3.0 L - Diagnostic Findings Chest x-ray: image reviewed Assessment and Plan Assessment: Recurrent right-sided pleural effusion, recently underwent thoracentesis on June 14 removing 2.4 L of fluid, which was exudative. Fluid cytology did not identify any malignant cells. Acute hypoxemic respiratory failure, secondary to above Metastatic colon cancer with diffuse pulmonary involvement and metastasis to the brain. Most recent PET scan done February, shows disease progression. Suspected acute COPD exacerbation History of bladder cancer status post transurethral resection History of nephrolithiasis and left-sided hydronephrosis Hyperlipidemia Hypertension History of CVA/TIA Former tobacco smoker plan: Patient's medications, labs, chest x-ray reviewed. Continue supplemental oxygen. The patient has a large right-sided recurrent pleural effusion. Obtain ultrasound of the chest for possible thoracentesis. Not taking anticoagulants. Pleural effusion returned relatively quickly. Patient may be candidate for a Pleurx catheter. I will discuss this with Dr. Curtis in the morning. Medication started for suspected COPD exacerbation including duo nebs, Symbicort inhaler, and IV Solu-Medrol. Patient appears hemodynamically stable, and is being admitted to the general medical floor. We will continue to follow, and further recommendations are forthcoming. I have personally seen and examined the patient, performed the documentation and the assessment and plan as written. Number of minutes spent on the visit:20 Time with Patient: Greater than 30
[2023-06-25] MEDS: methylPREDNISolone SOD SUCCI 125 MG/2 ML VIAL IV SCH ×4 (05:33→23:32)
[2023-06-25] MEDS: IPRATROPIUM-ALBUTEROL 3 ML NEB INHALATION SCH ×4 (08:02→20:01)
[2023-06-25] MEDS: SYMBICORT 160-4.5 MCG INHALER INHALATION SCH ×2 (08:02→20:01)
[2023-06-25] MEDS: guaiFENesin 600 MG TABLET.ER PO SCH ×2 (08:28→20:53)
[2023-06-25] MEDS: MORPHINE SULFATE ER 30 MG TABLET PO SCH ×2 (08:29→20:52)
[2023-06-25] MEDS: PREGABALIN 75 MG CAP PO SCH ×2 (08:29→20:52)
[2023-06-25 11:11] LABS: Basophils # (A) 0.01 X 10*3/uL (0.00-0.10); Basophils % (A) 0.1 %; Eosinophils # (A) 0 X 10*3/uL (0.04-0.35); Eosinophils % (A) 0 %; Lymphocytes # (A) 0.68 X 10*3/uL (0.90-5.00); MCH 26.4 pg (27.0-32.0); MCHC 30.6 g/dL (32.0-37.0); MCV 86.3 FL (80.0-97.0); Mean Platelet Volume 9.7 FL (9.5-12.2); Monocytes # (A) 0.33 X 10*3/uL (0.20-1.00); Monocytes % (A) 2.9 %; NRBC Per 100 WBC 0 X 10*3/uL (0.00-0.01); Neutrophils # (A) 10.34 X 10*3/uL (1.80-7.70); Neutrophils % (A) 90.6 %; Platelet Count 334 X 10*3/uL (140-440); RBC 4.17 X 10*6/uL (4.40-5.60); RDW 15.1 % (11.5-14.5)
[2023-06-25 11:32] LABS: BUN/Creat Ratio 35.14 Ratio (12.00-20.00); Blood Urea Nitrogen 24.6 mg/dL (9.0-27.0); Calcium 9.4 mg/dL (8.7-10.3); Carbon Dioxide 26.7 mmol/L (21.6-31.8); Chloride 101 mmol/L (96-109); Glucose 157 mg/dL (70-110); Potassium 4.7 mmol/L (3.5-5.5); Sodium 138 mmol/L (135-145)
[2023-06-25] MEDS: HYDROcodone/APAP 10-325MG 1 EACH TAB PO PRN (13:59)
--- NOTE | 2023-06-25 15:28 | P.PN ---
Subjective Progress Note Date: 06/25/23 Patient is a 72-year-old male with with history of lung cancer with brain metastases, colon cancer with metastatic disease, bladder cancer, COPD, CVA/TIA, GERD, and hypertension who presented with shortness of breath. Patient was recently admitted and discharged on 06/19 for similar complaints. During that admission he had right thoracentesis with 2.4 L removed, imaging showed progre ssive metastatic lung nodules, and he was discharged with steroids. On follow- up with his oncologist in [place], and due to treatment failure, he was recommended to go to [facility] for experimental treatment, which he has yet to start. In the emergency department he was tachypnic with respiratory rate of 26. Labs were relatively unremarkable and COVID testing was negative. Chest x-ray demonstrated recurrence of his right sided pleural effusion. He was admitted with pulmonary consult. Pulmonary felt he might be best suited for a pleurx cath and CT surgery was subsequently consulted, Patient seen and examined at bedside with present to his emergency department. He is not short of breath at rest, but is unable to complete even short tasks due to dyspnea which is making it impossible to complete his ADLs. Vital signs reviewed General: nontoxic, no distress, appears at stated age Cardiovascular: S1S2 reg, no murmur, positive posterior tibial pulse bilateral, Lungs: CTA bilateral, no rhonchi, no rales , 3 word conversational dyspnea, Abdominal: soft, nontender to palpation, no guarding, no appreciable organomegaly Ext: no gross muscle atrophy, no edema b/l lower extremities, no contractures Neuro: CN II-XI grossly intact, no focal neuro deficits Psych: Alert, oriented, appropriate affect Assessment/Plan: Recurrent right-sided pleural effusion last thoracentesis 06/14 Acute hypoxic respiratory failure Probable acute exacerbation of COPD Metastatic colon cancer with metastases to the lung and brain Pain related to malignancy -Pulm consult reviewed colon cancer Pleurx catheter - Duoneb every 4 times daily and when necessary, Symbicort 2 puffs twice daily -mucienx 600 mg twice daily Solu-Medrol 60 mg every 6 hours, Singulair 10 mg at night -Continue with Cymbalta 60 mg at night, MS Contin 30 mg twice daily, and Lyrica 75 mg twice daily - case discussed with Silvia vásquez nurse practitioner for cardiothoracic surgery. Patient does not have enough fluid to proceed with pleurx catheter in the morning. Will be discussed with patient and family. COuld repeat CXR in AM to see if there is enough fluid or follow-up in office to determine when there would be enough fluid to place pleurx. Dr. Curtis updated -Repeat chest x-ray in a.m. HTN HLD -Metoprolol 25 mg twice daily, Lipitor 40 mg daily Imaging: None new Data Review: Labs reviewed today including BMP and CBC which are remarkable for white blood cell count 11 and glucose of 157 DVT prophylaxis: SCDs Anticipated discharge date: Pending Clinical Course Anticipated discharge place: Pending Clinical Course This dictation was prepared using [employer] voice recognition software. Though every attempt is made to correct errors during dictation some may still exist. Objective - Vital Signs Vital signs: Vital Signs Temp 97.4 F L 06/25/23 07:31 Pulse 84 06/25/23 07:31 Resp 18 06/25/23 07:31 BP 97/75 06/25/23 07:31 Pulse Ox 93 L 06/25/23 07:31 FiO2 Intake & Output 06/24/23 06/25/23 06/25/23 18:59 06:59 18:59 Output Total 300 Balance -300 Weight 106.594 kg Output: Urine 300 - Labs CBC & Chem 7: 06/25/23 07:40 06/25/23 07:40 Labs: Abnormal Lab Results - Last 24 Hours (Table) 06/24/23 06/24/23 06/24/23 Range/Units 13:37 13:37 13:37 RBC 4.04 L (4.30-5.90) m/uL Hgb 11.1 L (13.0-17.5) gm/dL Hct 35.4 L (39.0-53.0) % APTT 31.0 H (22.0-30.0) sec Carbon Dioxide 31 H (22-30) mmol/L BUN 21 H (9-20) mg/dL Glucose 110 H (74-99) mg/dL Total Protein 5.7 L (6.3-8.2) g/dL Albumin 3.0 L (3.5-5.0) g/dL
--- NOTE | 2023-06-25 16:10 | P.GSCN ---
History of Present Illness Consult date: 06/25/23 Reason for Consult: Recurrent pleural effusion, need for Pleurx catheter Requesting physician: Virgen Denny History of present illness: This is a 72-year-old gentleman who follows outpatient with Dr. Chanel for primary care, as well as Dr. Jones for pulmonology, and an oncologist out of [facility]. He has a previous medical history of colon cancer with metastasis to the lung and brain, bladder cancer with previous resection, hypertension, hyperlipidemia, CVA, COPD, previous tobacco dependence and marijuana use. He was recently hospitalized for shortness of breath and underwent right-sided thoracentesis with removal of 2.4 L exudative fluid. He was discharged home June 19, unfortunately he has had progressively increased shortness of breath since being home and presented back to [facility] emergency room for evaluation and treatment. Chest x-ray demonstrated right-sided pleural ef fusion. The patient was admitted for evaluation and treatment with consultation placed to pulmonology. Ultrasound of the chest was completed. Consultation was then placed to cardiothoracic surgery for Pleurx catheter placement. Of note he has been told he has run out of options for his cancer, and is presently planning to explore experimental therapy at [facility]. Review of Systems Review of systems was completed and was negative except as noted - Cardiovascular Reports as per HPI, Reports shortness of breath Past Medical History Past Medical History: Cancer, COPD, CVA/TIA, GERD/Reflux, Hypertension Additional Past Medical History / Comment(s): colon cancer, lung cancer History of Any Multi-Drug Resistant Organisms: None Reported Past Surgical History: Bowel Resection, Joint Replacement, Orthopedic Surgery Past Anesthesia/Blood Transfusion Reactions: No Reported Reaction Past Psychological History: No Psychological Hx Reported Smoking Status: Former smoker Past Alcohol Use History: None Reported Past Drug Use History: Marijuana Medications and Allergies Home Medications Medication Instructions Recorded Confirmed Type Atorvastatin [Lipitor] 40 mg PO HS 06/12/23 06/24/23 History Cholecalciferol [Vitamin D3 (25 25 mcg PO DAILY 06/12/23 06/24/23 History Mcg = 1000 Iu)] Cyanocobalamin (Vitamin B-12) 1,000 mcg PO DAILY 06/12/23 06/24/23 History [Vitamin B-12] DULoxetine HCL [Cymbalta] 60 mg PO HS 06/12/23 06/24/23 History Garlic(Unknown Dose) 1 cap PO DAILY 06/12/23 06/24/23 History HYDROcodone/APAP 10-325MG [[place] 1 tab PO Q6H PRN 06/12/23 06/24/23 History 10-325] Ipratropium-Albuterol Nebulize 3 ml INHALATION RT-TID 06/12/23 06/24/23 History [Duoneb 0.5 mg-3 mg/3 ml Soln] Metoprolol Succinate (ER) [Toprol 25 mg PO HS 06/12/23 06/24/23 History XL] Montelukast [Singulair] 10 mg PO HS 06/12/23 06/24/23 History Morphine Sulfate ER [Ms Contin] 30 mg PO BID 06/12/23 06/24/23 History [place]-3 Fatty Acids [[place]-3] 4,000 mg PO DAILY 06/12/23 06/24/23 History Pantoprazole [Protonix] 40 mg PO HS 06/12/23 06/24/23 History Pregabalin [Lyrica] 75 mg PO BID 06/12/23 06/24/23 History Prochlorperazine [Compazine] 10 mg PO Q6H PRN 06/12/23 06/24/23 History Tamsulosin [Flomax] 0.4 mg PO HS 06/12/23 06/24/23 History guaiFENesin [Mucinex] 600 mg PO BID 06/12/23 06/24/23 History Allergies Allergy/AdvReac Type Severity Reaction Status Date / Time alprazolam [From Xanax] Allergy Unknown Verified 06/24/23 14:06 scopolamine Allergy Unknown Verified 06/24/23 14:06 Surgical - Exam Vital Signs Temp Pulse Resp BP Pulse Ox 98.2 F 91 26 H 135/82 96 06/24/23 12:20 06/24/23 12:20 06/24/23 12:20 06/24/23 12:20 06/24/23 12:20 CONSTITUTIONAL: Awake and alert, appears comfortable, cooperative, well- developed, well-nourished, no pain, no acute distress EYES: Pupils equal, round, reactive to light, normal ocular movement ENT: Moist mucous membranes without oral lesions present NECK: No masses, no bruits, trachea midline RESPIRATORY: Lungs sounds diminished with expiratory wheezes heard bilaterally. Respirations even, nonlabored. Currently on 2 L nasal cannula with oxygen saturation 95%. Strong cough CARDIOVASCULAR: S1, S2 present. Regular rate and rhythm. Palpable peripheral pulses bilaterally. No edema present GASTROINTESTINAL: Abdomen soft, nontender, nondistended without masses or organomegaly noted. There is no rebound or guarding present. Active bowel sounds present 4 quadrants. GENITOURINARY: Deferred INTEGUMENTARY: Skin is warm and dry NEUROLOGIC: Cranial nerves II through XII intact, normal coordination, no obvious motor or sensory deficits, speech is normal MUSKULOSKELETAL: Able to move all extremities, strength equal bilaterally, normal posture PSYCHIATRIC: Alert and oriented to person place and time, appropriate affect, intact judgment and insight Results - Labs 06/25/23 07:40 06/25/23 07:40 Abnormal Lab Results - Last 24 Hours (Table) 06/25/23 06/25/23 Range/Units 07:40 07:40 WBC 11.40 H (4.50-10.00) X 10*3/uL RBC 4.17 L (4.40-5.60) X 10*6/uL Hgb 11.0 L (13.0-17.0) g/dL Hct 36.0 L (39.6-50.0) % MCH 26.4 L (27.0-32.0) pg MCHC 30.6 L (32.0-37.0) g/dL RDW 15.1 H (11.5-14.5) % Neutrophils # 10.34 H (1.80-7.70) X 10*3/uL Lymphocytes # 0.68 L (0.90-5.00) X 10*3/uL Eosinophils # 0 L (0.04-0.35) X 10*3/uL BUN/Creatinine Ratio 35.14 H (12.00-20.00) Ratio Glucose 157 H (70-110) mg/dL Diabetes panel 06/25/23 Range/Units 07:40 Sodium 138 (135-145) mmol/L Potassium 4.7 (3.5-5.5) mmol/L Chloride 101 (96-109) mmol/L Carbon Dioxide 26.7 (21.6-31.8) mmol/L BUN 24.6 (9.0-27.0) mg/dL Creatinine 0.7 (0.6-1.5) mg/dL Glucose 157 H (70-110) mg/dL Calcium 9.4 (8.7-10.3) mg/dL Calcium panel 06/25/23 Range/Units 07:40 Calcium 9.4 (8.7-10.3) mg/dL Pituitary panel 06/25/23 Range/Units 07:40 Sodium 138 (135-145) mmol/L Potassium 4.7 (3.5-5.5) mmol/L Chloride 101 (96-109) mmol/L Carbon Dioxide 26.7 (21.6-31.8) mmol/L BUN 24.6 (9.0-27.0) mg/dL Creatinine 0.7 (0.6-1.5) mg/dL Glucose 157 H (70-110) mg/dL Calcium 9.4 (8.7-10.3) mg/dL Adrenal panel 06/25/23 Range/Units 07:40 Sodium 138 (135-145) mmol/L Potassium 4.7 (3.5-5.5) mmol/L Chloride 101 (96-109) mmol/L Carbon Dioxide 26.7 (21.6-31.8) mmol/L BUN 24.6 (9.0-27.0) mg/dL Creatinine 0.7 (0.6-1.5) mg/dL Glucose 157 H (70-110) mg/dL Calcium 9.4 (8.7-10.3) mg/dL - Imaging Chest x-ray: report reviewed, image reviewed Assessment and Plan Assessment: Recurrent right-sided pleural effusion, last drained June 14 for 2.4 L ex udative fluid Shortness of breath secondary to above History of colon cancer with metastasis to the lung and brain History of bladder cancer with previous resection Hypertension Hyperlipidemia CVA COPD Previous tobacco dependence Marijuana use Plan: Patient was seen and examined the bedside with family present. Chart/diagnostics reviewed. The case was reviewed with Dr. Nova. At this time there is not enough fluid for safe placement of Pleurx catheter. This was discussed with the patient. When enough fluid has accumulated we would be happy to place a Pleurx catheter for home drainage, this is considered palliative not curative. This was discussed in detail with the patient and he is in agreement. Our contact information was given to the patient. We'll continue to follow while he is in the hospital, otherwise will see on an outpatient basis. Medical management of other comorbidities per internal medicine, pulmonology. Please call us with any further questions. Thank you Dr. Huizar for this consult. I have personally seen and examined the patient, performed the documentation and the assessment and plan as written. Number of minutes spent on the visit: 30. ALEXA Sanchez
[2023-06-25] MEDS: MONTELUKAST 10 MG TAB PO SCH (20:53)
[2023-06-25] MEDS: DULoxetine HCL 60 MG CAPSULE.DR PO SCH (20:53)
[2023-06-25] MEDS: PANTOPRAZOLE 40 MG TABLET PO SCH (20:53)
[2023-06-25] MEDS: METOPROLOL SUCCINATE (ER) 25 MG TAB.ER.24H PO SCH (20:53)
[2023-06-25] MEDS: ATORVASTATIN 40 MG TAB PO SCH (20:53)
[2023-06-25] MEDS: TAMSULOSIN 0.4 MG CAP.ER.24H PO SCH (20:53)
[2023-06-26] MEDS: methylPREDNISolone SOD SUCCI 125 MG/2 ML VIAL IV SCH ×2 (05:53→11:16)
[2023-06-26 06:21] LABS: HCT 33.7 % (39.0-53.0); HGB 10.8 gm/dL (13.0-17.5); Hypochromasia Slight; MCH 27.8 pg (25.0-35.0); MCV 86.7 fL (80.0-100.0); Platelet Count 281 k/uL (150-450); RBC 3.89 m/uL (4.30-5.90); RDW 14.9 % (11.5-15.5); WBC 9.6 k/uL (3.8-10.6)
[2023-06-26 06:39] LABS: African American GFR (CKD) >90 (>60 ml/min/1.73 sqM); Anion Gap 10 mmol/L; Blood Urea Nitrogen 21 mg/dL (9-20); Calcium 9.1 mg/dL (8.4-10.2); Carbon Dioxide 28 mmol/L (22-30); Chloride 99 mmol/L (98-107); Glucose 155 mg/dL (74-99); Non-African American GFR(CKD) >90 (>60 ml/min/1.73 sqM); Potassium 4.2 mmol/L (3.5-5.1); Sodium 137 mmol/L (137-145)
--- NOTE | 2023-06-26 07:24 | US ---
EXAMINATION TYPE: US chest DATE OF EXAM: 06/25/2023 COMPARISON: 06/24/2023 CLINICAL INDICATION: Male, 72 years old with history of right pleural effusions; TECHNIQUE: Targeted ultrasound of the posterior lower right thorax EXAM MEASUREMENTS: Right Pleural Effusion pocket size: 13.7 cm Right skin surface to fluid distance: 3.5 cm Right side marked for possible thoracentesis outside the dept. Pulmonologists are able to review the images in the patient?s EMR. IMPRESSIONS: Right pleural effusion marked for thoracentesis.
[2023-06-26] MEDS: SYMBICORT 160-4.5 MCG INHALER INHALATION SCH (07:51)
[2023-06-26] MEDS: IPRATROPIUM-ALBUTEROL 3 ML NEB INHALATION SCH ×3 (07:51→15:44)
[2023-06-26] MEDS: PREGABALIN 75 MG CAP PO SCH (08:15)
[2023-06-26] MEDS: MORPHINE SULFATE ER 30 MG TABLET PO SCH (08:15)
[2023-06-26] MEDS: guaiFENesin 600 MG TABLET.ER PO SCH (08:16)
--- NOTE | 2023-06-26 08:48 | XR ---
EXAMINATION TYPE: XR chest 2V DATE OF EXAM: 06/26/2023 7:44 AM CLINICAL INDICATION:Male, 72 years old with history of pleural effusion; [facility] COMPARISON: Chest radiographs from 06/24/2023 TECHNIQUE: XR chest 2V Frontal and lateral views of the chest. FINDINGS: Lungs/Pleura: There is a right pleural effusion with associated atelectasis. Similar to 2022. There i s no evidence of pleural effusion, focal consolidation, or pneumothorax. Pulmonary vascularity: Unremarkable. Heart/mediastinum: Cardiomediastinal silhouette is unremarkable. Musculoskeletal: No acute osseous pathology. Other findings: None Lines/Tubes: [id number] projecting over the right hemithorax with distal tip at the cavoatrial junction. IMPRESSION: Right pleural effusion with associated atelectasis.
[2023-06-26] MEDS: HYDROcodone/APAP 10-325MG 1 EACH TAB PO PRN (11:16)
[2023-06-26 12:13] VITALS: BP 117/72; RESP 16; TEMP 97.5
--- NOTE | 2023-06-26 14:02 | P.PN ---
Subjective Progress Note Date: 06/26/23 I am seeing this patient in consultation today 06/25/2023 in the emergency room after he presented with progressively worsening shortness of breath since his recent hospital discharge on June 15. He was found to have a large right- sided pleural effusion. Patient is a 72-year-old white male with past medical history significant for colon cancer with metastasis to the lung and brain, bladder cancer with previous resection, hypertension, hyperlipidemia, CVA/TIA, and COPD. He follows with an oncologist out of [facility]. Despite multiple previous treatment regimens, there is evidence of disease progression. Most recent PET scan performed at our facility shows multiple increasing bila teral lung masses with increasing SUV values compatible with worsening neoplastic process. He was admitted to [facility] earlier this month for similar symptoms. He was found to have a large right-sided pleural effusion as demonstrated by chest CTA. There was diffuse pulmonary metastasis with multiple bilateral pulmonary nodules and masses. Patient did undergo a right-sided thoracentesis on June 14, and a total of 2.4 L of fluid was drained. Fluid was exudative. No cytological malignant cells were identified. No bacterial organisms cultured. Patient is currently sitting up in bed, on 3 L/m nasal cannula, in no acute distress. Patient reportedly has had increasing shortness of breath over the last week or so. He's had trouble sleeping. He woke up in the middle the night yesterday and was acutely short of breath. Per his , he was twitching. Did not lose consciousness. He does admit a mostly nonproductive cough. Denies any fever, hemoptysis, chest pain. No significant orthopnea, lower extremity swelling. Chest x-ray on arrival demonstrated a recurrent moderate to large right-sided pleural effusion. There was also some associated cardiomegaly and mild pulmonary congestion. Previous effusion was exudative, and is likely the cause of his shortness of breath. There was also redemonstration of the previous discussed pulmonary nodules/masses. CBC on ar rival is unremarkable, no leukocytosis. BMP shows sodium 138, potassium 4.4, chloride 11, serum bicarbonate 31, BUN 21, creatinine 0.69, glucose 110. Lactic acid level 0.9. NT proBNP 1140. Troponin 0.021. Negative for COVID-19. He will be admitted to the general medical floor once bed available. The patient is seen today 06/26/2023 in follow-up on the regular medical floor. He is currently sitting up at the bedside. Awake and alert in no acute distress. He is maintaining O2 saturations in the 90s on 2 L/m per nasal cannula. He does have home oxygen. White count 9.6. Hemoglobin 10.8. Platelets 281. Sodium 137. Potassium 4.2. Bicarb 28. BUN 21. Creatinine 0.59. Glucose 155. He had been seen and evaluated by CT services. Plan is for possible Pleurx catheter placement in the outpatient setting. Follow-up chest x-ray reveals similar right pleural effusion with associated atelectasis. He remains on DuoNeb inhalations, Symbicort, Solu-Medrol, Mucinex and Singulair. Objective - Vital Signs Vital signs: Vital Signs Temp 97.5 F L 06/26/23 11:49 Pulse 78 06/26/23 11:49 Resp 16 06/26/23 11:49 BP 117/72 06/26/23 11:49 Pulse Ox 96 06/26/23 11:49 FiO2 Intake & Output 06/25/23 06/26/23 06/26/23 18:59 06:59 18:59 Intake Total 540 Output Total 300 1000 Balance -300 -460 Weight 106.594 kg Intake: Oral 540 Output: Urine 300 1000 Other: Voiding Method Toilet Toilet Urinal Urinal # Voids 3 - Exam GENERAL EXAM: Alert, pleasant 72-year-old obese male, on 2 L nasal cannula, comfortable in no apparent distress. HEAD: Normocephalic and atraumatic EYES: Normal reaction of pupils, equal size. NOSE: Clear with pink turbinates. THROAT: No erythema or exudates. NECK: No masses, no JVD. CHEST: No chest wall deformity. LUNGS: Right lower lobe dullness. Also, faint expiratory wheezes heard throughout. No conversational dyspnea. CVS: S1 and S2 normal with no audible murmur, regular rhythm. No extra heart sounds ABDOMEN: No hepatosplenomegaly, active bowel sounds, no guarding or rigidity. SPINE: No scoliosis or deformity SKIN: No rashes CENTRAL NERVOUS SYSTEM: No focal deficits, tone is normal in all 4 extremities. EXTREMITIES: There is no peripheral edema, clubbing, or cyanosis. Peripheral pulses are intact. - Labs CBC & Chem 7: 06/26/23 06:06 06/26/23 06:06 Labs: Abnormal Lab Results - Last 24 Hours (Table) 06/26/23 06/26/23 Range/Units 06:06 06:06 RBC 3.89 L (4.30-5.90) m/uL Hgb 10.8 L (13.0-17.5) gm/dL Hct 33.7 L (39.0-53.0) % BUN 21 H (9-20) mg/dL Creatinine 0.59 L (0.66-1.25) mg/dL Glucose 155 H (74-99) mg/dL Assessment and Plan Assessment: Recurrent right-sided pleural effusion, recently underwent thoracentesis on June 14 removing 2.4 L of fluid, which was exudative. Fluid cytology did not identify any malignant cells. Acute hypoxemic respiratory failure, secondary to above Metastatic colon cancer with diffuse pulmonary involvement and metastasis to the brain. Most recent PET scan done February, shows disease progression. Suspected acute COPD exacerbation History of bladder cancer status post transurethral resection History of nephrolithiasis and left-sided hydronephrosis Hyperlipidemia Hypertension History of CVA/TIA Former tobacco smoker Plan: The patient was seen and evaluated Chest x-ray, labs and medications reviewed Cleared for discharge from the pulmonary standpoint The patient has home oxygen Continue his home pulmonary medications Complete a prednisone taper Plan is for outpatient Pleurx catheter placement This patient was seen independently by the nurse practitioner I have personally seen and examined the patient, performed the documentation and the assessment and plan as written. Number of minutes spent on the visit: 24.
--- NOTE | 2023-06-26 14:53 | P.DS ---
Providers Date of admission: 06/24/23 15:29 Expected date of discharge: 06/26/23 Attending physician: Dash Flower MD Consults: 06/24/23 15:28 Consult Physician Urgent Consulting Provider: Luis Carlos Curtis Consult Reason/Comments: recurrent pleural effusion Do you want consulting provider notified?: Yes 06/25/23 11:22 Consult Physician Routine Consulting Provider: Jaskaran Nova Consult Reason/Comments: pleurx cath Do you want consulting provider notified?: Already Contacted Primary care physician: [facility] Hospital Course: Discharge Diagnosis: Recurrent right-sided pleural effusion last thoracentesis 06/14 Acute hypoxic respiratory failure Acute exacerbation of COPD Metastatic colon cancer with metastases to the lung and brain Pain related to malignancy HTN HLD Hospital Course: Patient is a 72-year-old male with with history of lung cancer with brain metastases, colon cancer with metastatic disease, bladder cancer, COPD, CVA/TIA, GERD, and hypertension who presented with shortness of breath. Patient was recently admitted and discharged on 06/19 for similar complaints. During that a dmission he had right thoracentesis with 2.4 L removed, imaging showed progressive metastatic lung nodules, and he was discharged with steroids. On follow-up with his oncologist in [place], and due to treatment failure, he was recommended to go to [facility] for experimental treatment, which he has yet to start. In the emergency department he was tachypnic with respiratory rate of 26. Labs were relatively unremarkable and COVID testing was negative. Chest x-ray demonstrated recurrence of his right sided pleural effusion. He was admitted with pulmonary consult. Pulmonary felt he might be best suited for a pleurx cath and CT surgery was subsequently consulted. Unfortunately there is not enough fluid to place a pleurx cath at this time. It was determined the best course of action is to discharge the patient wtih close outpatient follow-up and plan for pleurx once enough fluid has accumulated to place one. He has some gait instability due to his dyspnea form his pleural effusion and cancer and require a walker to complete his ADLS. FOllow-up. He will see Dr. Curtis in office next week to have a CXR and then if appropriate will see CT surgery (Dr. Nova) in office. He will complete a prednisone taper. Patient seen and examined at bedside. He is doing okay. She is in agreement with close outpatient follow-up for possible patient for Pleurx catheter. Vital signs reviewed and stable. General: nontoxic, no distress, appears at stated age Cardiovascular: S1S2 reg, no murmur, positive posterior tibial pulse bilateral, Lungs: CTA bilateral, no rhonchi, no rales , no accessory muscle use Neuro: CN II-XI grossly intact, no focal neuro deficits Psych: Alert, oriented, appropriate affect A total of 42 minutes of time were spent preparing this complex discharge summary. Patient was discharged on 06/26/23. This dictation was prepared using [employer] voice recognition software. Though every attempt is made to correct errors during dictation some may still exist. Patient Condition at Discharge: Stable Plan - Discharge Summary Discharge Rx Participant: No New Discharge Prescriptions: New predniSONE [Deltasone] 0 mg PO DIRECTED #12 tab Continue Garlic(Unknown Dose) 1 cap PO DAILY Cholecalciferol [Vitamin D3 (25 Mcg = 1000 Iu)] 25 mcg PO DAILY [place]-3 Fatty Acids [[place]-3] 4,000 mg PO DAILY DULoxetine HCL [Cymbalta] 60 mg PO HS Tamsulosin [Flomax] 0.4 mg PO HS Pregabalin [Lyrica] 75 mg PO BID Pantoprazole [Protonix] 40 mg PO HS Montelukast [Singulair] 10 mg PO HS Ipratropium-Albuterol Nebulize [Duoneb 0.5 mg-3 mg/3 ml Soln] 3 ml INHALATION RT-TID Morphine Sulfate ER [Ms Contin] 30 mg PO BID Cyanocobalamin (Vitamin B-12) [Vitamin B-12] 1,000 mcg PO DAILY guaiFENesin [Mucinex] 600 mg PO BID Atorvastatin [Lipitor] 40 mg PO HS Metoprolol Succinate (ER) [Toprol XL] 25 mg PO HS HYDROcodone/APAP 10-325MG [[place] 10-325] 1 tab PO Q6H PRN PRN Reason: Pain Prochlorperazine [Compazine] 10 mg PO Q6H PRN PRN Reason: Nausea Discharge Medication List Atorvastatin [Lipitor] 40 mg PO HS 06/12/23 [History] Cholecalciferol [Vitamin D3 (25 Mcg = 1000 Iu)] 25 mcg PO DAILY 06/12/23 [History] Cyanocobalamin (Vitamin B-12) [Vitamin B-12] 1,000 mcg PO DAILY 06/12/23 [History] DULoxetine HCL [Cymbalta] 60 mg PO HS 06/12/23 [History] Garlic(Unknown Dose) 1 cap PO DAILY 06/12/23 [History] HYDROcodone/APAP 10-325MG [[place] 10-325] 1 tab PO Q6H PRN 06/12/23 [History] Ipratropium-Albuterol Nebulize [Duoneb 0.5 mg-3 mg/3 ml Soln] 3 ml INHALATION RT-TID 06/12/23 [History] Metoprolol Succinate (ER) [Toprol XL] 25 mg PO HS 06/12/23 [History] Montelukast [Singulair] 10 mg PO HS 06/12/23 [History] Morphine Sulfate ER [Ms Contin] 30 mg PO BID 06/12/23 [History] [place]-3 Fatty Acids [[place]-3] 4,000 mg PO DAILY 06/12/23 [History] Pantoprazole [Protonix] 40 mg PO HS 06/12/23 [History] Pregabalin [Lyrica] 75 mg PO BID 06/12/23 [History] Prochlorperazine [Compazine] 10 mg PO Q6H PRN 06/12/23 [History] Tamsulosin [Flomax] 0.4 mg PO HS 06/12/23 [History] guaiFENesin [Mucinex] 600 mg PO BID 06/12/23 [History] predniSONE [Deltasone] 0 mg PO DIRECTED #12 tab 06/26/23 [Rx] Follow up Appointment(s)/Referral(s): Jaskaran Nova MD [STAFF PHYSICIAN] - As Needed (May follow up after discharge from the hospital for PleurX catheter consideration once fluid re-accumulates) Luis Carlos Curtis DO [Doctor of Osteopathic Medicine] - 1 Week [facility], [NON-STAFF] - 1-2 Days (Agency will phone within 24/48 hours to arrange for a visit.) aMnuel Lopez MD [Primary Care Provider] - 1-2 days Activity/Diet/Wound Care/Special Instructions: Activity: As tolerated Diet: Heart Halthy Special Instructions: Please follow with Dr. Curtis next week. They will plan on an x-ray in office to monitor your effusion and then will refer you to Dr. Nova once there is enough fluid to place a pleurx cath. Sleeping with your head elevated can help to relieve your shortness of breath at night. Discharge Disposition: HOME SELF-CARE
[2023-06-26 16:15] VITALS: PULSE 84
== END 2023-06-26 16:30 | disposition home or self-care (01) | DRG 186 ==
LOC: EC 12:16 → 6NMEDSUR 15:29 → OBSVTOIN 15:29 → 5NMEDONC 15:45
PROVIDERS: ADMIT Family Medicine; ATTEND Family Medicine
DX: J90 Pleural effusion, not elsewhere classified (principal); J96.21 Acute and chronic respiratory failure with hypoxia; C18.9 Malignant neoplasm of colon, unspecified; C34.90 Malignant neoplasm of unspecified part of unspecified bronchus or lung; C78.00 Secondary malignant neoplasm of unspecified lung; C79.31 Secondary malignant neoplasm of brain; J44.1 Chronic obstructive pulmonary disease with (acute) exacerbation; Z20.822 Contact with and (suspected) exposure to COVID-19; K21.9 Gastro-esophageal reflux disease without esophagitis; E78.5 Hyperlipidemia, unspecified; G62.9 Polyneuropathy, unspecified; G89.3 Neoplasm related pain (acute) (chronic); Z79.51 Long term (current) use of inhaled steroids; Z79.899 Other long term (current) drug therapy; Z86.73 Personal history of transient ischemic attack (TIA), and cerebral infarction without residual deficits; Z87.442 Personal history of urinary calculi; Z85.038 Personal history of other malignant neoplasm of large intestine; Z85.118 Personal history of other malignant neoplasm of bronchus and lung; Z85.51 Personal history of malignant neoplasm of bladder
CPT/HCPCS: 36415; 71046; 76604; 80048; 80053; 83605; 83880; 84484; 85025; 85027; 85610; 85730; 87635; 93005; 94640; 94760; 96374; 96376; 99285

== ENCOUNTER 2023-07-06 15:01 | Inpatient (IN) | payer BC, MEDICARE ==
--- NOTE | 2023-07-06 15:49 | ED ---
General Adult HPI - General Chief complaint: Neuro Symptoms/Deficit Stated complaint: Weakness Time Seen by Provider: 07/06/23 15:19 Source: patient, family, RN notes reviewed Mode of arrival: EMS Limitations: no limitations - History of Present Illness Initial comments: Patient is a pleasant 72-year-old male presenting to the emergency department with complaints of right-sided weakness. Last known well was around 9:30 last night when he went to bed. Patient woke up at 6:30 to go to the bathroom. Patient did fall to the floor. Patient does have some weakness of his right arm and right leg. Patient was unable to walk since that time. Symptoms are persistent. Patient does have history of metastatic colon cancer, stage IV with brain metastasis. Patient does have history of radiation therapy to the brain week ago. Patient does have distant history of A. fib 6 years ago. None since that time. Patient is not on any anticoagulation. - Related Data Home Medications Medication Instructions Recorded Confirmed Atorvastatin [Lipitor] 40 mg PO HS 06/12/23 06/24/23 Cholecalciferol [Vitamin D3 (25 25 mcg PO DAILY 06/12/23 06/24/23 Mcg = 1000 Iu)] Cyanocobalamin (Vitamin B-12) 1,000 mcg PO DAILY 06/12/23 06/24/23 [Vitamin B-12] DULoxetine HCL [Cymbalta] 60 mg PO HS 06/12/23 06/24/23 Garlic(Unknown Dose) 1 cap PO DAILY 06/12/23 06/24/23 HYDROcodone/APAP 10-325MG [[place] 1 tab PO Q6H PRN 06/12/23 06/24/23 10-325] Ipratropium-Albuterol Nebulize 3 ml INHALATION RT-TID 06/12/23 06/24/23 [Duoneb 0.5 mg-3 mg/3 ml Soln] Metoprolol Succinate (ER) [Toprol 25 mg PO HS 06/12/23 06/24/23 XL] Montelukast [Singulair] 10 mg PO HS 06/12/23 06/24/23 Morphine Sulfate ER [Ms Contin] 30 mg PO BID 06/12/23 06/24/23 [place]-3 Fatty Acids [[place]-3] 4,000 mg PO DAILY 06/12/23 06/24/23 Pantoprazole [Protonix] 40 mg PO HS 06/12/23 06/24/23 Pregabalin [Lyrica] 75 mg PO BID 06/12/23 06/24/23 Prochlorperazine [Compazine] 10 mg PO Q6H PRN 06/12/23 06/24/23 Tamsulosin [Flomax] 0.4 mg PO HS 06/12/23 06/24/23 guaiFENesin [Mucinex] 600 mg PO BID 06/12/23 06/24/23 Previous Rx's Medication Instructions Recorded predniSONE [Deltasone] 0 mg PO DIRECTED #12 tab 06/26/23 Allergies Allergy/AdvReac Type Severity Reaction Status Date / Time alprazolam [From Xanax] Allergy Unknown Verified 07/06/23 17:08 scopolamine Allergy Unknown Verified 07/06/23 17:08 Review of Systems ROS Statement: Those systems with pertinent positive or pertinent negative responses have been documented in the HPI. ROS Other: All systems not noted in ROS Statement are negative. Constitutional: Denies: fever Eyes: Denies: eye pain ENT: Denies: ear pain Respiratory: Reports: cough, other (Patient does have some mild chest congestion and cough). Denies: dyspnea Cardiovascular: Denies: chest pain Endocrine: Denies: fatigue Gastrointestinal: Denies: abdominal pain Genitourinary: Denies: dysuria Musculoskeletal: Denies: back pain Skin: Denies: rash Neurological: Reports: as per HPI, headache (Mild headache), weakness Past Medical History Past Medical History: Cancer, COPD, CVA/TIA, GERD/Reflux, Hypertension Additional Past Medical History / Comment(s): colon cancer, lung cancer History of Any Multi-Drug Resistant Organisms: None Reported Past Surgical History: Bowel Resection, Joint Replacement, Orthopedic Surgery Past Anesthesia/Blood Transfusion Reactions: No Reported Reaction Past Psychological History: No Psychological Hx Reported Smoking Status: Former smoker Past Alcohol Use History: None Reported Past Drug Use History: Marijuana General Exam Limitations: no limitations General appearance: alert, in no apparent distress Head exam: Present: normocephalic Eye exam: Present: normal appearance, PERRL, EOMI ENT exam: Present: normal oropharynx Neck exam: Present: tenderness (Mild cervical tenderness) Respiratory exam: Present: normal lung sounds bilaterally Cardiovascular Exam: Present: tachycardia, irregular rhythm GI/Abdominal exam: Present: soft. Absent: tenderness Neurological exam: Present: alert, oriented X3, CN II-XII intact Expanded Neurological exam: Present: protecting the airway Patient oriented to: Present: person, place, time Speech: Present: fluid speech Cranial nerves: EOM's Intact: Normal, Facial Sensation: Normal Sensory exam: Upper Extremity Light Touch: Normal, Lower Extremity Light Touch: Normal Motor strength exam: RUE: 4, LUE: 5, RLE: 2/1, LLE: 5 Eye Response: (4) open spontaneously Motor Response: (6) obeys commands Verbal Response: (5) oriented Psychiatric exam: Present: normal affect, normal mood Skin exam: Present: normal color Course Vital Signs 07/06/23 07/06/23 07/06/23 15:10 15:30 15:45 Temperature 99.1 F Pulse Rate 107 H 100 103 H Respiratory 20 23 20 Rate Blood Pressure 89/60 130/74 126/74 O2 Sat by Pulse 98 96 97 Oximetry 07/06/23 16:00 Temperature Pulse Rate 97 Respiratory 20 Rate Blood Pressure 117/91 O2 Sat by Pulse 95 Oximetry EKG Findings - EKG Results: EKG: interpreted by ERMD (Left axis. Poor R-wave progression.), normal ST/T EKG shows: tachycardia, atrial fibrillation Medical Decision Making - Medical Decision Making Case was discussed with Dr. Oglesby who agrees patient is on TPA candidate. Last known well greater than 4.5 hours. he also feels patient is not a candidate for thrombectomy. Was pt. sent in by a medical professional or institution (, PA, BUSINESS SUPPORT, urgent care, hospital, or halfway...) When possible be specific @ -No Did you speak to anyone other than the patient for history (EMS, parent, family, police, friend...)? What history was obtained from this source @ - is present and is a good historian regarding previous history, better than patient and is helpful. Did you review nursing and triage notes (agree or disagree)? Why? @ -I reviewed and agree with nursing and triage notes Were old charts reviewed (outside hosp., previous admission, EMS record, old EKG, old radiological studies, urgent care reports/EKG's, halfway records)? Report findings @ -Previous imaging reviewed Differential Diagnosis (chest pain, altered mental status, abdominal pain women, abdominal pain men, vaginal bleeding, weakness, fever, dyspnea, syncope, headache, dizziness, GI bleed, back pain, seizure, CVA, palpatations, mental health, musculoskeletal)? @ -Differential Weakness: Hypoglycemia, shock, sepsis, hyponatremia, anemia, infection, MA, ETOH, adverse medicine reaction, overdose, stroke, this is not meant to be an all-inclusive list. EKG interpreted by me (3pts min.). @ -As above X-rays interpreted by me (1pt min.). @ -Chest x-ray shows right-sided effusion. CT interpreted by me (1pt min.). @ -CT brain shows left posterior parietal/occipital lesion with vasogenic edema, 2 cm . larger than previous. U/S interpreted by me (1pt. min.). @ -None done What testing was considered but not performed or refused? (CT, X-rays, U/S, labs)? Why? @ -None What meds were considered but not given or refused? Why? @ -Consider tPA however patient is not a candidate. Did you discuss the management of the patient with other professionals (professionals i.e. , PA, BUSINESS SUPPORT, lab, RT, psych nurse, social studies teacher, grain elevator operator, teacher, commercial credit officer, case management manager)? Give summary @ -Case was discussed with Dr. Paula, who will admit covered Dr. Lopez. Was smoking cessation discussed for >3mins.? @ -No Was critical care preformed (if so, how long)? @ -31 minutes critical care time Were there social determinants of health that impacted care today? How? (Homelessness, low income, unemployed, alcoholism, drug addiction, transportation, low edu. Level, literacy, decrease access to med. care, long-term, re hab)? @ -No Was there de-escalation of care discussed even if they declined (Discuss DNR or withdrawal of care, Hospice)? DNR status @ -No What co-morbidities impacted this encounter? (DM, HTN, Smoking, COPD, CAD, Cancer, CVA, ARF, Chemo, Hep., AIDS, mental health diagnosis, sleep apnea, morbid obesity)? @ -Metastatic colon cancer Was patient admitted / discharged? Hospital course, mention meds given and route, prescriptions, significant lab abnormalities, going to OR and other per tinent info. @ -Patient reevaluated and unchanged. Patient and family are updated on results and plan. Patient will be admitted with consults with neurology and oncology. IV steroids will be started. Undiagnosed new problem with uncertain prognosis? @ -No Drug Therapy requiring intensive monitoring for toxicity (Heparin, Nitro, Insulin, Cardizem)? @ -No Were any procedures done? @ -No Diagnosis/symptom? @ -Right-sided weakness Acute, or Chronic, or Acute on Chronic? @ -Acute Uncomplicated (without systemic symptoms) or Complicated (systemic symptoms)? @ -default Side effects of treatment? @ -No Exacerbation, Progression, or Severe Exacerbation? @ -No Poses a threat to life or bodily function? How? (Chest pain, [place], MA, pneumonia, PE, COPD, DKA, ARF, appy, cholecystitis, CVA, Diverticulitis, Homicidal, Suicidal, threat to staff... and all critical care pts) @ -No - Lab Data Result diagrams: 07/06/23 15:45 Lab Results 07/06/23 07/06/23 Range/Units 15:45 15:45 WBC 7.9 (3.8-10.6) k/uL RBC 4.21 L (4.30-5.90) m/uL Hgb 11.7 L (13.0-17.5) gm/dL Hct 36.8 L (39.0-53.0) % MCV 87.4 (80.0-100.0) fL MCH 27.8 (25.0-35.0) pg MCHC 31.9 (31.0-37.0) g/dL RDW 15.3 (11.5-15.5) % Plt Count 357 (150-450) k/uL MPV 7.1 Neutrophils % 78 % Lymphocytes % 15 % Monocytes % 5 % Eosinophils % 1 % Basophils % 0 % Neutrophils # 6.1 (1.3-7.7) k/uL Lymphocytes # 1.2 (1.0-4.8) k/uL Monocytes # 0.4 (0-1.0) k/uL Eosinophils # 0.1 (0-0.7) k/uL Basophils # 0.0 (0-0.2) k/uL Hypochromasia Moderate PT 10.1 (10.0-12.5) sec INR 0.9 (<1.2) APTT 24.7 (22.0-30.0) sec Disposition Clinical Impression: Right sided weakness Disposition: ADMITTED IP TO THIS HOSP Condition: Serious Is patient prescribed a controlled substance at d/c from ED?: No Referrals: Manuel Lopez MD [Primary Care Provider] - 1-2 days Time of Disposition: 17:25
[2023-07-06 15:54] LABS: Basophils % (A) 0 %; Eosinophils # (A) 0.1 k/uL (0-0.7); Eosinophils % (A) 1 %; HCT 36.8 % (39.0-53.0); HGB 11.7 gm/dL (13.0-17.5); Hypochromasia Moderate; Lymphocytes # (A) 1.2 k/uL (1.0-4.8); Lymphocytes % (A) 15 %; MCH 27.8 pg (25.0-35.0); MCHC 31.9 g/dL (31.0-37.0); MCV 87.4 fL (80.0-100.0); Mean Platelet Volume 7.1; Monocytes # (A) 0.4 k/uL (0-1.0); Monocytes % (A) 5 %; Neutrophils # (A) 6.1 k/uL (1.3-7.7); Neutrophils % (A) 78 %; Platelet Count 357 k/uL (150-450); RBC 4.21 m/uL (4.30-5.90); RDW 15.3 % (11.5-15.5); WBC 7.9 k/uL (3.8-10.6)
[2023-07-06 16:03] LABS: INR 0.9 (<1.2); Partial Thromboplastin Time 24.7 sec (22.0-30.0); Prothrombin Time 10.1 sec (10.0-12.5)
[2023-07-06 16:28] LABS: ALT 16 U/L (4-49); AST 21 U/L (17-59); African American GFR (CKD) >90 (>60 ml/min/1.73 sqM); Albumin 3.2 g/dL (3.5-5.0); Alkaline Phosphatase 94 U/L (38-126); Anion Gap 8 mmol/L; Blood Urea Nitrogen 21 mg/dL (9-20); Carbon Dioxide 31 mmol/L (22-30); Chloride 100 mmol/L (98-107); Glucose 139 mg/dL (74-99); Non-African American GFR(CKD) >90 (>60 ml/min/1.73 sqM); Potassium 4.3 mmol/L (3.5-5.1); Sodium 139 mmol/L (137-145); Total Bilirubin 0.5 mg/dL (0.2-1.3); Total Protein 6.1 g/dL (6.3-8.2)
--- NOTE | 2023-07-06 16:41 | XR ---
EXAMINATION TYPE: XR chest 2V DATE OF EXAM: 07/06/2023 COMPARISON: 06/26/2023 HISTORY: Shortness of breath TECHNIQUE: Frontal and lateral views of the chest are obtained. FINDINGS: Scattered senescent parenchymal changes noted. Hyperinflation compatible with COPD. Increasing right basilar opacity likely reflects effusion as well as underlying atelectasis or infilt rate. Nodular density left mid lung zones unchanged. Additional nodular density right upper lobe. Med iPort catheter unchanged in position. Heart size is stable. Mediastinal structures are stable and grossly unremarkable. No evidence for hilar prominence. Degenerative changes dorsal spine. IMPRESSION: 1. Increasing right basilar opacity likely reflects effusion as well as underlying atelectasis or inf iltrate.
--- NOTE | 2023-07-06 16:47 | CT ---
EXAMINATION TYPE: CT brain wo con DATE OF EXAM: 07/06/2023 COMPARISON: 06/12/2023 INDICATION: Weakness, Rt side weakness. Code stroke DLP: 1247.9 mGycm, Automated exposure control for dose reduction was used. CONTRAST: None CT of the brain is performed utilizing 3 mm thick sections through the posterior fossa and 3 mm thick sections through the remaining calvarium. Study is performed within 24 hours of arrival to the hosp ital. No abnormal hyperdensity is present to suggest an acute intracranial hemorrhage. There is a 2.0 cm mass with surrounding vasogenic edema in the left parietal-occipital region. There is mild effacement of the adjacent sulci. No midline shift is evident. Remaining ventricles and sulci are prominent. No additional masses are identified. Paranasal sinuses and mastoid air cells within the [id number] are clear. IMPRESSION: 1. 2.0 cm mass, enlarged from 1.1 cm, with surrounding vasogenic edema left parietal occipital vert ex. 2. No acute intracranial hemorrhage.
--- NOTE | 2023-07-06 16:50 | CT ---
EXAMINATION TYPE: CT angio head neck DATE OF EXAM: 07/06/2023 HISTORY: Weakness, Rt side weakness. Code stroke COMPARISON: CT DLP: 542.5 mGycm. Automated Exposure Control for Dose Reduction was Utilized. TECHNIQUE: CTA scan of the neck is performed with IV Contrast, patient injected with 65 mL of Isovue 370, axial images are obtained, coronal and sagittal reformatted images are reviewed. Three-D recons tructed images are created on an independent workstation and reviewed. Source images are reviewed. FINDINGS: Carotid/Vascular Structures: There is a 3 vessel arch. Common carotid arteries bifurcate into internal and external carotid arteries without significant mukund w limiting stenosis. Vertebral arteries are codominant. Internal carotid arteries and vertebral arteries are patent to the skull base. Cervical of [place]: Vertebral basilar system appears normal. Posterior cerebral vasculature is unrema rkable. Internal carotid arteries bifurcate normally into A1 and M1 segments. A2 segments are normal. The anterior communicating artery is not identified. The right posterior communicating artery is absent. The left posterior communicating artery is absent. Other: No abnormal vascular flow to the left parietal-occipital vertex mass IMPRESSION: 1. No flow-limiting stenosis bilateral carotid bifurcations. 2. No acute abnormality of the [place] of [place]. 3. Enlarging left parietal-occipital mass with vasogenic edema NASCET criteria was used in interpretation of this exam?
[2023-07-06 17:25] LABS: Creatine Kinase 84 U/L (55-170)
[2023-07-06] MEDS ORDERED: ACETAMINOPHEN TAB 325 MG TAB PO PRN (17:25)
[2023-07-06] MEDS ORDERED: NALOXONE 0.4 MG/ML 1 ML VIAL IV PRN (17:25)
[2023-07-06] MEDS ORDERED: IPRATROPIUM-ALBUTEROL 3 ML NEB INHALATION STA (17:26)
[2023-07-06] MEDS: DEXAMETHASONE SOD PHOSPHATE 4 MG/ML 1 ML VIAL IVP SCH ×2 (17:55→23:24)
[2023-07-06] MEDS: SODIUM CHLORIDE 0.9% 1,000 ML IV SCH (17:55)
[2023-07-06] MEDS ORDERED: DEXAMETHASONE SOD PHOSPHATE 10 MG/ML 1 ML VIAL IVP STA (18:16)
[2023-07-06] MEDS ORDERED: levETIRAcetam IV 1,000 MG in SODIUM CHLORIDE 0.9% 250 ML IVPB ONE (18:17)
[2023-07-06] MEDS ORDERED: levETIRAcetam IV 500 MG/5 ML VIAL IVP ONE (18:30)
[2023-07-06 18:42] LABS: ABG Base Excess 8.5 mmol/L; ABG HCO3 33 mmol/L (21-25); ABG Oxygen Saturation 96.5 % (94-97); ABG PCO2 49 mmHg (35-45); ABG PH 7.44 (7.35-7.45); ABG PO2 79 mmHg (83-108); ABG TCO2 34 mmol/L (19-24); Allen Test Performed? Yes
--- NOTE | 2023-07-06 18:52 | P.HPIM ---
History of Present Illness H&P Date: 07/06/23 Patient is a 72-year-old male with a history of Metastatic colon cancer with mets to brain and lung with recurrent right sided pleural effusion, COPD, CVA/TIA, GERD, and HTN who presented with right sided weakness. On arrival to the emergency department he underwent an extensive evaluation. Labs were CBC, Coags and CMP which were essentially unremarkable. He underwent CTA head and neck which showed no flow-limiting stenosis bilaterally but did show an enlarging left parietal occipital mass with vasogenic edema. CT brain showed a 2 cm mass with surrounding vasogenic edema in the left parietal occipital vertex enlarging from 1.1 cm with no associated acute intracranial hemorrhage. In the ER was contacted and arrangements were made for admission. Patient seen and examined at bedside. He reports that he woke up this morning at approximately 630 and noticed some right-sided leg weakness. This has been here for quite some time but was acutely worse. He then ended up falling. They called EMS who helped him back up and back to bed. He eventually went back to sleep. When he awoke again he needed to go to the bathroom. He was significantly weaker than prior and him and his significant other struggle getting to the bathroom. That is when she called EMS and they presented to the emergency department. He has a known left sided brain met that was recently treated last week with a one-time radiation treatment at [facility] which was stated to be completely treated. He had been on a steroid taper after discharge from our facility for recurrent right-sided pleural effusion, however he was never given any specific steroid for his metastatic brain lesion. During my evaluation with the patient he had intermittent left sided jerking. He also had an episode of unresponsiveness for approximately 5 to 10 seconds with bruxism apparent. When asked his significant other reports that last week he woke her from sleep and was having full body tonic-clonic type seizure lasting approximately 30 seconds. She called EMS and by the time she got them on the phone and had aborted. Patient did not want to seek medical attention at that time. He has not been on any seizure prophylaxis. His last dose of chemotherapy was in February and he follows with Dr. Aguirre out of [place] for medical oncology. Vital signs reviewed General: nontoxic, no distress, appears at stated age Derm: warm, dry Eyes: EOMI, no lid lag, anicteric sclera, pupils equal round reactive to light ENT: Nose and ears atraumatic, no thrush, no pharyngeal erythema Cardiovascular: S1S2 reg, no murmur, positive posterior tibial pulse bilateral, no edema, capillary refill less than 2 seconds Lungs: clear to auscultation bilateral, no rhonchi, no rales, no wheeze, no accessory muscle use Abdominal: soft, nontender to palpation, no guarding, no appreciable organomegaly, normal bowel sounds Ext: no gross muscle atrophy, muscle strength 5 out of 5 in all 4 extremities, no contractures Neuro: CN II-XII grossly intact, light touch intact all 4 extremities, finger to nose within normal limits, Psych: Alert, oriented, appropriate affect Assessment/Plan: Right sided weakness, possible new onset stroke vs worsening of known left sided brain metastasis Toxic metabolic encephalopathy Concern for seizure -Case discussed with Dr. Goldsmith. Will load Keppra 1000 mg x 1 now and then start Keppra 500 mg twice daily. - ASA 81 mg daily, hold of on plavix with surrounding vasogenic edema - MRI brain - consult rad onc. -Lipitor 40 mg at night -Consult PT/OT/speech therapy -Seizure precautions -Decadron 10 mg IV push x 1 now then 4 mg every 6 hours -Check echocardiogram, telemetry Metastatic colon cancer with recurrent right sided pleural effusions - consult oncology and pulmonary Chronic: Hypertension GERD COPD without exacerbation Imaging: per HPI Data Review: As per HPI The patient is admitted with an anticipated greater than 2 midnight stay for evaluation of right sided weakness and possibel stroke. Surrogate decision-maker: Significant other- Lauren CODE STATUS: Full -- had a prolonged discussion DVT prophylaxis: Heparin SC Anticipated discharge date: Pending Clinical Course Anticipated discharge place: Pending CLinical Course This dictation was prepared using [employer] voice recognition software. Though every attempt is made to correct errors during dictation some may still exist. Past Medical History Past Medical History: Cancer, COPD, CVA/TIA, GERD/Reflux, Hypertension Additional Past Medical History / Comment(s): colon cancer, lung cancer History of Any Multi-Drug Resistant Organisms: None Reported Past Surgical History: Bowel Resection, Joint Replacement, Orthopedic Surgery Past Anesthesia/Blood Transfusion Reactions: No Reported Reaction Past Psychological History: No Psychological Hx Reported Smoking Status: Former smoker Past Alcohol Use History: None Reported Past Drug Use History: Marijuana Medications and Allergies Home Medications Medication Instructions Recorded Confirmed Type Atorvastatin [Lipitor] 40 mg PO HS 06/12/23 07/06/23 History Cholecalciferol [Vitamin D3 (25 25 mcg PO DAILY 06/12/23 07/06/23 History Mcg = 1000 Iu)] Cyanocobalamin (Vitamin B-12) 1,000 mcg PO DAILY 06/12/23 07/06/23 History [Vitamin B-12] DULoxetine HCL [Cymbalta] 60 mg PO HS 06/12/23 07/06/23 History HYDROcodone/APAP 10-325MG [[place] 1 tab PO Q6H PRN 06/12/23 07/06/23 History 10-325] Ipratropium-Albuterol Nebulize 3 ml INHALATION RT-TID 06/12/23 07/06/23 History [Duoneb 0.5 mg-3 mg/3 ml Soln] Montelukast [Singulair] 10 mg PO HS 06/12/23 07/06/23 History Morphine Sulfate ER [Ms Contin] 30 mg PO BID 06/12/23 07/06/23 History [place]-3 Fatty Acids [[place]-3] 4,000 mg PO DAILY 06/12/23 07/06/23 History Pantoprazole [Protonix] 40 mg PO HS 06/12/23 07/06/23 History Pregabalin [Lyrica] 75 mg PO BID 06/12/23 07/06/23 History Prochlorperazine [Compazine] 10 mg PO Q6H PRN 06/12/23 07/06/23 History Tamsulosin [Flomax] 0.4 mg PO HS 06/12/23 07/06/23 History Albuterol Sulfate [Ventolin HFA] 1 - 2 puff INHALATION RT-Q4H PRN 07/06/23 07/06/23 History Garlic 100 mg PO DAILY 07/06/23 07/06/23 History guaiFENesin [Mucinex] 1,200 mg PO BID 07/06/23 07/06/23 History polyethylene glycoL 3350 [Miralax] 17 gm PO DAILY 07/06/23 07/06/23 History predniSONE [Deltasone] See Taper PO DIRECTED 07/06/23 07/06/23 History Allergies Allergy/AdvReac Type Severity Reaction Status Date / Time alprazolam [From Xanax] Allergy Unknown Verified 07/06/23 17:08 scopolamine Allergy Unknown Verified 07/06/23 17:08 metoprolol [From Toprol XL] AdvReac Dizziness Verified 07/06/23 17:19 Physical Exam Osteopathic Statement: *. No significant issues noted on an osteopathic structural exam other than those noted in the History and Physical/Consult. Vitals: Vital Signs Temp Pulse Resp BP Pulse Ox 07/06/23 18:03 104 H 07/06/23 18:00 100 20 128/81 99 07/06/23 17:42 98 07/06/23 16:00 97 20 117/91 95 07/06/23 15:45 103 H 20 126/74 97 07/06/23 15:30 100 23 130/74 96 07/06/23 15:10 99.1 F 107 H 20 89/60 98 Intake and Output 07/06/23 07/06/23 07/06/23 06:59 14:59 22:59 Other: Weight 108.862 kg Results CBC & Chem 7: 07/06/23 15:45 07/06/23 15:45 Labs: Abnormal Lab Results - Last 24 Hours (Table) 07/06/23 07/06/23 07/06/23 Range/Units 15:45 15:45 18:34 RBC 4.21 L (4.30-5.90) m/uL Hgb 11.7 L (13.0-17.5) gm/dL Hct 36.8 L (39.0-53.0) % ABG pCO2 49 H (35-45) mmHg ABG pO2 79 L (83-108) mmHg ABG HCO3 33 H (21-25) mmol/L ABG Total CO2 34 H (19-24) mmol/L Carbon Dioxide 31 H (22-30) mmol/L BUN 21 H (9-20) mg/dL Glucose 139 H (74-99) mg/dL Total Protein 6.1 L (6.3-8.2) g/dL Albumin 3.2 L (3.5-5.0) g/dL
[2023-07-06] MEDS: TAMSULOSIN 0.4 MG CAP.ER.24H PO SCH (20:29)
[2023-07-06] MEDS: guaiFENesin 600 MG TABLET.ER PO SCH (20:29)
[2023-07-06] MEDS: PREGABALIN 75 MG CAP PO SCH (20:30)
[2023-07-06] MEDS: PANTOPRAZOLE 40 MG TABLET PO SCH (20:30)
[2023-07-06] MEDS: MONTELUKAST 10 MG TAB PO SCH (20:31)
[2023-07-06] MEDS: ATORVASTATIN 40 MG TAB PO SCH (20:31)
[2023-07-06] MEDS: MORPHINE SULFATE ER 30 MG TABLET PO SCH (20:32)
[2023-07-06] MEDS: levETIRAcetam IV 500 MG/5 ML VIAL IVP SCH (20:34)
[2023-07-06] MEDS: ASPIRIN 81 MG PO SCH (20:38)
[2023-07-06] MEDS ORDERED: DULoxetine HCL 60 MG CAPSULE.DR PO SCH (21:00)
[2023-07-06] MEDS: HEPARIN SODIUM,PORCINE 5,000 UNIT/ML 1 ML VIAL SQ SCH (23:24)
[2023-07-07] MEDS ORDERED: IPRATROPIUM-ALBUTEROL 3 ML NEB INHALATION PRN (03:30)
--- NOTE | 2023-07-07 05:23 | P.CNPUL ---
History of Present Illness Consult date: 07/07/23 Requesting physician: Virgen Denny Reason for consult: pleural effusion Chief complaint: Right-sided weakness History of present illness: I am seeing this patient in consultation today 07/07/2023 for a right-sided recurrent pleural effusion. Patient is a 72-year-old male with past medical h istory significant for is that of colon cancer with metastasis to the lung and brain, bladder cancer with previous resection, hypertension, hyperlipidemia, CVA/TIA, COPD, and former smoker. He follows with an oncologist out of [facility]. Despite multiple previous treatment regimens, there is evidence of disease progression. Most recent PET scan performed at our facility shows multiple increasing bilateral lung masses with increasing SUV values compatible with worsening neoplastic process. Patient did undergo a right-sided thoracentesis on June 14, and a total of 2.4 L of fluid was drained. Fluid was exudative. No cytological malignant cells were identified. No bacterial organisms cultured. He was admitted to [facility] earlier last month for chiefly for shortness of breath and recurrent pleural effusion, plan was for possible Pleurx catheter, but there was not enough fluid to safely place the catheter by Cardiothoracic surgery. Patient presented this admission chiefly for right-sided weakness. He does have history of CVA/TIA and atrial fibrillation. He is a questionable historian. Apparently, there was some questionable seizure- like activity reported, however, he denies this to me. Patient did express a fall at home. Patient reportedly had a one-time radiation treatment at [facility] earlier last week. Brain CTA demonstrated no flow limiting stenosis of the bilateral carotids or acute abnormality the ruby of [place]. There was enlarging left parietal occipital mass with vasogenic edema. This was also demonstrated on the nonenhanced brain CT, which showed a 2 cm mass, enlarged from 1.1 cm previously, with surrounding vasogenic edema of the left parietal occipital vertex. No acute intracranial hemorrhage. There was mild effacement of the adjacent sulci, no midline shift. Brain MRI is pending. Patient has been loaded with Keppra and started on IV Decadron. Patient is currently sitting up in bed, on 3 L per minute nasal cannula, in no acute distress. Normally wears 2 L/m nasal cannula at home. He has history of oxygen dependent COPD. He does admit to some exertional shortness of breath and occasional cough with minimal and occasional yellow to green sputum production. Denies any fevers, chest pain, hemoptysis. No seizure-like activity noted. Chest x-ray on arrival shows an increasing right-sided pleural effusion with associated atelectasis and/or infiltrate. CBC was unremarkable on arrival. BMP shows sodium 139, potassium 4.3, chloride 100, serum bicarbonate 31, BUN 21, creatinine 0.78, glucose 139. ABG was done, does not explain the patient's confusion or seizure-like activity. Vital signs are stable. Review of Systems REVIEW OF SYSTEMS: CONSTITUTIONAL: Denies any recent significant weight loss or weight gain. EYES: Denies change in vision. EARS, NOSE, MOUTH, THROAT: Denies headaches, denies sore throat. CARDIOVASCULAR: Denies chest pain, palpitations or syncopal episodes. RESPIRATORY: See HPI. GASTROINTESTINAL: Denies change in appetite, nausea and vomiting, diarrhea, constipation. Admits to mild abdominal discomfort, and not different from baseline. GENITOURINARY: Denies hematuria, denies infections. MUSKULOSKELETAL: Denies pain, denies swelling. INTEGUMENTARY: Denies rash, denies eczema. NEUROLOGICAL: Denies recent memory loss, no recent seizure activity. Reports right-sided weakness and fall PSYCHIATRIC: Denies anxiety, denies depression. HEMATOLOGIC/LYMPHATIC: Denies anemia, denies enlarged lymph node Past Medical History Past Medical History: Cancer, COPD, CVA/TIA, GERD/Reflux, Hypertension Additional Past Medical History / Comment(s): colon cancer, lung cancer History of Any Multi-Drug Resistant Organisms: None Reported Past Surgical History: Bowel Resection, Joint Replacement, Orthopedic Surgery Past Anesthesia/Blood Transfusion Reactions: No Reported Reaction Past Psychological History: No Psychological Hx Reported Smoking Status: Former smoker Past Alcohol Use History: None Reported Past Drug Use History: Marijuana Medications and Allergies Home Medications Medication Instructions Recorded Confirmed Type Atorvastatin [Lipitor] 40 mg PO HS 06/12/23 07/06/23 History Cholecalciferol [Vitamin D3 (25 25 mcg PO DAILY 06/12/23 07/06/23 History Mcg = 1000 Iu)] Cyanocobalamin (Vitamin B-12) 1,000 mcg PO DAILY 06/12/23 07/06/23 History [Vitamin B-12] DULoxetine HCL [Cymbalta] 60 mg PO HS 06/12/23 07/06/23 History HYDROcodone/APAP 10-325MG [[place] 1 tab PO Q6H PRN 06/12/23 07/06/23 History 10-325] Ipratropium-Albuterol Nebulize 3 ml INHALATION RT-TID 06/12/23 07/06/23 History [Duoneb 0.5 mg-3 mg/3 ml Soln] Montelukast [Singulair] 10 mg PO HS 06/12/23 07/06/23 History Morphine Sulfate ER [Ms Contin] 30 mg PO BID 06/12/23 07/06/23 History [place]-3 Fatty Acids [[place]-3] 4,000 mg PO DAILY 06/12/23 07/06/23 History Pantoprazole [Protonix] 40 mg PO HS 06/12/23 07/06/23 History Pregabalin [Lyrica] 75 mg PO BID 06/12/23 07/06/23 History Prochlorperazine [Compazine] 10 mg PO Q6H PRN 06/12/23 07/06/23 History Tamsulosin [Flomax] 0.4 mg PO HS 06/12/23 07/06/23 History Albuterol Sulfate [Ventolin HFA] 1 - 2 puff INHALATION RT-Q4H PRN 07/06/23 07/06/23 History Garlic 100 mg PO DAILY 07/06/23 07/06/23 History guaiFENesin [Mucinex] 1,200 mg PO BID 07/06/23 07/06/23 History polyethylene glycoL 3350 [Miralax] 17 gm PO DAILY 07/06/23 07/06/23 History predniSONE [Deltasone] See Taper PO DIRECTED 07/06/23 07/06/23 History Allergies Allergy/AdvReac Type Severity Reaction Status Date / Time alprazolam [From Xanax] Allergy Unknown Verified 07/06/23 17:08 scopolamine Allergy Unknown Verified 07/06/23 17:08 metoprolol [From Toprol XL] AdvReac Dizziness Verified 07/06/23 17:19 Physical Exam Vitals: Vital Signs Temp Pulse Resp BP Pulse Ox 07/06/23 23:35 96 18 108/69 95 07/06/23 21:00 97.6 F 104 H 16 128/86 94 L 07/06/23 20:00 101 H 17 124/84 94 L 07/06/23 19:00 102 H 22 148/77 93 L 07/06/23 18:03 104 H 07/06/23 18:00 100 20 128/81 99 07/06/23 17:42 98 07/06/23 16:00 97 20 117/91 95 07/06/23 15:45 103 H 20 126/74 97 07/06/23 15:30 100 23 130/74 96 07/06/23 15:10 99.1 F 107 H 20 89/60 98 Intake and Output 07/06/23 07/06/23 07/07/23 14:59 22:59 06:59 Other: Weight 108.862 kg GENERAL EXAM: Alert, 72-year-old white male, fatigued and debilitated, in no apparent distress. HEAD: Normocephalic and atraumatic EYES: Normal reaction of pupils, equal size. NOSE: Clear with pink turbinates. THROAT: No erythema or exudates. NECK: No masses, no JVD. CHEST: No chest wall deformity. LUNGS: Equal air entry with expiratory wheezes and rhonchi heard throughout. On 3 L/m nasal cannula. No conversational dyspnea or accessory muscle use.. CVS: S1 and S2 normal with no audible murmur, regular rhythm. No extra heart sounds ABDOMEN: No hepatosplenomegaly, active bowel sounds, no guarding or rigidity. SPINE: No scoliosis or deformity SKIN: No rashes CENTRAL NERVOUS SYSTEM: Right-sided upper extremity grade 4/5, Right lower extre mity strength graded 2/5, Left sided extremities strength grade 4/5. No other focal deficits noted. Cranial nerves II through XII intact. EXTREMITIES: There is no peripheral edema, clubbing, or cyanosis. Peripheral pulses are intact. Results - Laboratory Findings CBC and BMP: 07/06/23 15:45 07/06/23 15:45 ABG ABG pH 7.44 (7.35-7.45) 07/06/23 18:34 ABG pCO2 49 mmHg (35-45) H 07/06/23 18:34 ABG pO2 79 mmHg (83-108) L 07/06/23 18:34 ABG O2 Saturation 96.5 % (94-97) 07/06/23 18:34 PT/INR, D-dimer PT 10.1 sec (10.0-12.5) 07/06/23 15:45 INR 0.9 (<1.2) 07/06/23 15:45 Abnormal lab findings: Abnormal Labs 07/06/23 07/06/23 07/06/23 15:45 15:45 18:34 RBC 4.21 L Hgb 11.7 L Hct 36.8 L ABG pCO2 49 H ABG pO2 79 L ABG HCO3 33 H ABG Total CO2 34 H Carbon Dioxide 31 H BUN 21 H Glucose 139 H Total Protein 6.1 L Albumin 3.2 L - Diagnostic Findings Chest x-ray: image reviewed Assessment and Plan Assessment: Recurrent right-sided pleural effusion, recently underwent thoracentesis on June 14 removing 2.4 L of fluid, which was exudative. Fluid cytology did not identify any malignant cells. Patient was being considered for a Pleurx catheter to be inserted outpatient. Suspected acute COPD exacerbation Acute on chronic hypoxemic respiratory failure, secondary to above Metastatic colon cancer with diffuse pulmonary involvement and metastasis to the brain. Most recent PET scan done February, shows disease progression. N onenhanced brain CT this admission, shows an enlarging 2 cm mass, previously measured 1.1 cm, with surrounding vasogenic edema of the left parietal occipital vertex. No acute intracranial hemorrhage. There was mild effacement of the adjacent sulci, no midline shift Right-sided weakness, possibly related to above or ischemic CVA. Possible seizure-like activity History of bladder cancer status post transurethral resection History of nephrolithiasis and left-sided hydronephrosis History of paroxysmal atrial fibrillation, not on anticoagulation Hyperlipidemia Hypertension History of CVA/TIA Former tobacco smoker Plan: Chest x-ray demonstrates a recurrent right-sided pleural effusion. Obtain chest ultrasound. Likely consult cardiothoracic surgery for a Pleurx catheter inserti on. Continue supplemental oxygen and resume DuoNeb's. Neurology has been added to the case. Patient is loaded with Keppra. IV Decadron has been started. MRI of the brain pending. Echocardiogram pending Patient's overall prognosis is very poor related to above mentioned comorbidities. He is a full code. We will continue to follow, and further recommendations are forthcoming. I have personally seen and examined the patient, performed the documentation and the assessment and plan as written. Number of minutes spent on the visit: 20. Time with Patient: Greater than 30
[2023-07-07] MEDS: DEXAMETHASONE SOD PHOSPHATE 4 MG/ML 1 ML VIAL IVP SCH ×4 (05:59→23:23)
[2023-07-07] MEDS: HYDROcodone/APAP 10-325MG 1 EACH TAB PO PRN ×2 (05:59→16:25)
--- NOTE | 2023-07-07 08:37 | US ---
EXAMINATION TYPE: US chest DATE OF EXAM: 07/07/2023 COMPARISON: Radiograph 07/06/2023 CLINICAL INDICATION: Male, 72 years old with history of right pleural effusion; TECHNIQUE: Targeted ultrasound of the posterior lower right hemithorax Exam done portable EXAM MEASUREMENTS: Right Pleural Effusion pocket size: 11.5 cm Right skin surface to fluid distance: 3.8 cm Right side marked for possible thoracentesis outside the dept. Pulmonologists are able to review the images in the patient?s EMR. IMPRESSIONS: Moderate sized right pleural effusion with marking performed.
[2023-07-07] MEDS: IPRATROPIUM-ALBUTEROL 3 ML NEB INHALATION SCH ×4 (08:56→22:03)
[2023-07-07] MEDS ORDERED: NON FORMULARY DRUG (Omega-3 Fatty Acids [Omega-3] 1,000 MG Capsule) PO SCH (09:00)
[2023-07-07 09:52] LABS: HGB 10.8 gm/dL (13.0-17.5); Hypochromasia Marked; MCH 27.1 pg (25.0-35.0); MCHC 30.8 g/dL (31.0-37.0); Mean Platelet Volume 7.3; Platelet Count 336 k/uL (150-450); RBC 3.97 m/uL (4.30-5.90); RDW 15.2 % (11.5-15.5)
[2023-07-07] MEDS: HEPARIN SODIUM,PORCINE 5,000 UNIT/ML 1 ML VIAL SQ SCH ×3 (10:03→23:23)
[2023-07-07] MEDS: levETIRAcetam IV 500 MG/5 ML VIAL IVP SCH ×2 (10:03→20:56)
[2023-07-07] MEDS: CYANOCOBALAMIN 500 MCG TAB PO SCH (10:04)
[2023-07-07] MEDS: guaiFENesin 600 MG TABLET.ER PO SCH ×2 (10:04→20:54)
[2023-07-07] MEDS: ASPIRIN 81 MG PO SCH (10:04)
[2023-07-07] MEDS: polyethylene glycoL 3350 17 GM POWD.PACK PO SCH (10:04)
[2023-07-07] MEDS: PREGABALIN 75 MG CAP PO SCH ×2 (10:04→20:54)
[2023-07-07] MEDS: CHOLECALCIFEROL 25 MCG (1000 IU) TABLET PO SCH (10:04)
[2023-07-07] MEDS: MORPHINE SULFATE ER 30 MG TABLET PO SCH ×2 (10:04→20:55)
[2023-07-07 10:16] LABS: Carbon Dioxide 28 mmol/L (22-30); Chloride 102 mmol/L (98-107); Glucose 207 mg/dL (74-99); Potassium 4.5 mmol/L (3.5-5.1); Sodium 138 mmol/L (137-145)
[2023-07-07 10:17] LABS: ALT 33 U/L (4-49); AST 23 U/L (17-59); African American GFR (CKD) >90 (>60 ml/min/1.73 sqM); Alkaline Phosphatase 89 U/L (38-126); Anion Gap 8 mmol/L; Blood Urea Nitrogen 23 mg/dL (9-20); Non-African American GFR(CKD) >90 (>60 ml/min/1.73 sqM); Total Bilirubin 0.4 mg/dL (0.2-1.3); Total Protein 5.8 g/dL (6.3-8.2)
--- NOTE | 2023-07-07 10:56 | MR ---
EXAMINATION TYPE: MR brain wo con DATE OF EXAM: 07/06/2023 COMPARISON: 07/06/2023 CT brain HISTORY: CVA, known brain mets CONTRAST: Performed utilizing 0 mL intravenous Gadavist gadolinium contrast. TECHNIQUE: Multiplanar, multiecho imaging on a 3.0 Rupinder magnet is performed through the brain. Stud y is performed within 24 hours of arrival to the hospital. The craniovertebral junction is normal. The pituitary is normal. Diffusion-weighted imaging is performed. No abnormal hyperintensity is present to suggest an acute i ntracranial infarct or acute ischemic change. There is confluent white matter changes at the left vertex and T2 inversion recovery weighted sequenc es. Findings are compatible with vasogenic edema. There is a central hypointense area measuring 1.5 x 2.1 cm. Findings appear compatible with a neoplastic process with adjacent vasogenic edema. Findings appear compatible with the recent CT examination. Ventricles and sulci are appropriate for the patient age. No midline shift is evident. Mild effacemen t of sulci at the level vasogenic edema is present IMPRESSION: 1. There is a 1.6 x 2.1 cm mass posterior left vertex with surrounding vasogenic edema can be compati ble with neoplastic lesion. Findings correlate with CT exam.
[2023-07-07] MEDS ORDERED: HYDROmorphone 1 MG/ML 1 ML SYRINGE IVP STA (11:37)
[2023-07-07 11:56] VITALS: BMI 32.8
--- NOTE | 2023-07-07 12:05 | CA ---
Transthoracic Echo Report Name: Skip Hernandez Age: 72 Gender: M : 1950 Exam Date: 07/07/2023 08:25 Exam Location: [facility] Ht (in): 72 Wt (lb): 240 Ordering Physician: Virgen Denny DO Attending/Referring Phys: [id number], [employer]in [employer] Clover Rivera RDCS Procedure CPT: Indications: Thrombus Cardiac Hx: Technical Quality: Fair Contrast 1: Total Dose (mL): Contrast 2: Total Dose (mL): MEASUREMENTS (Male / Female) Normal Values 2D ECHO LV Diastolic Diameter PLAX 6.3 cm 4.2 - 5.9 / 3.9 - 5.3 cm LV Systolic Diameter PLAX 4.2 cm IVS Diastolic Thickness 1.1 cm 0.6 - 1.0 / 0.6 - 0.9 cm LVPW Diastolic Thickness 1.4 cm 0.6 - 1.0 / 0.6 - 0.9 cm LV Relative Wall Thickness 0.4 RV Internal Dim ED PLAX 3.6 cm LA Systolic Diameter LX 3.2 cm 3.0 - 4.0 / 2.7 - 3.8 cm LV Diastolic Volume MOD 4C 97.5 cm??? LV Systolic Volume MOD 4C 23.8 cm??? LV Ejection Fraction MOD 4C 75.6 % LV Cardiac Index MOD 4C 2535.3 cm???/min???m??? LV Diastolic Length 4C 8.7 cm LV Systolic Length 4C 7.0 cm LV Diastolic Volume MOD 2C 93.5 cm??? LV Systolic Volume MOD 2C 45.8 cm??? LV Ejection Fraction MOD 2C 51.0 % LV Cardiac Index MOD 2C 1638.9 cm???/min???m??? LV Diastolic Length 2C 9.1 cm LV Systolic Length 2C 7.7 cm LA Volume 41.2 cm??? 18 - 58 / 22 - 52 cm??? LA Volume Index 17.3 cm???/m??? 16 - 28 cm???/m??? M-MODE Aortic Root Diameter MM 3.6 cm AV Cusp Separation MM 2.5 cm DOPPLER AV Peak Velocity 128.4 cm/s AV Peak Gradient 6.6 mmHg MV Area PHT 3.8 cm??? Mitral E Point Velocity 61.6 cm/s Mitral A Point Velocity 95.6 cm/s Mitral E to A Ratio 0.6 MV Deceleration Time 197.1 ms MV E' Velocity 6.9 cm/s Mitral E to MV E' Ratio 8.9 FINDINGS Left Ventricle Left ventricular ejection fraction is estimated at 50-55 %. Normal LV size. Mild concentric LVH. No obvious regional wall motion abnormality. Grade 1 diastolic dysfunction Right Ventricle Mild right ventricular dilatation. Unable to estimate the right ventricular systolic pressure. Right Atrium Normal right atrial size. Negative agitated saline bubble study for right to left shunt. Left Atrium Normal left atrial size. Mitral Valve Structurally normal mitral valve. No mitral stenosis, regurgitation or prolapse. Aortic Valve Trileaflet aortic valve. No aortic valve stenosis or regurgitation. Tricuspid Valve Structurally normal tricuspid valve. No tricuspid regurgitation. Pulmonic Valve Pulmonic valve not well visualized. Pericardium No pericardial effusion. Aorta Normal size aortic root and proximal ascending aorta. CONCLUSIONS Left ventricular ejection fraction is estimated at 50-55 %. Mild concentric LVH. No obvious regional wall motion abnormality. Grade 1 diastolic dysfunction. No significant chamber size abdomen And no significant valvular dysfunction RVSP could not be estimated Previewed by: Dr Ap Perez (Electronically Signed) Final Date: 07 July 2023 12:05
--- NOTE | 2023-07-07 12:08 | XR ---
EXAMINATION TYPE: XR chest 1V portable DATE OF EXAM: 07/07/2023 Comparison: 07/06/2023 Clinical History: 72-year-old male status post right-sided thoracentesis Findings: The patient is rotated towards the right limiting the assessment. There is residual small to moderate right pleural effusion, decreased from yesterday. Prominent patchy opacities remain throughout the r ight lung. Nodularity left mid and lower lung redemonstrated. No appreciable pneumothorax. No appreci able pneumothorax. Right anterior chest wall injection port with catheter tip at the lower SVC. Heart borderline in size. Impression: 1. Status post right-sided thoracentesis. No appreciable pneumothorax. A small to moderate right pleu ral effusion remains. 2. Known underlying pulmonary nodules.
--- NOTE | 2023-07-07 13:45 | MR ---
EXAMINATION TYPE: MR brain w con DATE OF EXAM: 07/07/2023 COMPARISON: Noncontrast MRI 07/07/2023 HISTORY: Abnormal MRI WO CONTRAST: Performed utilizing 11 mL intravenous Gadavist gadolinium contrast. TECHNIQUE: Multiplanar, multiecho imaging on a 3.0 Rupinder magnet is performed through the brain. Stud y is performed within 24 hours of arrival to the hospital. Post contrast imaging is performed. This e xam is compared with the earlier examination. There is a heterogenous enhancing mass at the left vertex measuring 2.3 AP by 1.9 transverse by 2.1 c m craniocaudal dimension. This has surrounding vasogenic edema with mild mass effect on the adjacent sulci. No midline shift is evident. No ventricular effacement is evident. Edema extends towards the c orpus callosum. Findings can be compatible with metastatic disease. Primary could be considered withi n the differential. IMPRESSION: 1. Heterogenous enhancing mass left posterior vertex with surrounding vasogenic edema in the compatib le with neoplasm.
[2023-07-07 15:51] LABS: Chol/HDL Ratio 2.53 Ratio; LDL Cholesterol,Calculated 66.5 mg/dL (0.0-131.0)
--- NOTE | 2023-07-07 16:25 | P.CONS ---
History of Present Illness - Reason for Consult Consult date: 07/07/23 brain metastases, symptomatic Requesting physician: Robert Guthrie - Chief Complaint right hemiparesis - History of Present Illness The patient is a 72-year-old male with a history of metastatic colon cancer. He has apparently undergone multiple lines of chemotherapy, and at this point is investigating potential clinical trial. Approximately 1 week ago, the patient underwent a single fraction radiosurgery to a metastatic lesion involving the left superior parietal lobe performed at [facility]. He presented to the hospital secondary to acute right hemiparesis. The patient was initially found to have a single brain metastasis on MRI of the brain from 06/02/2023. He was treated this past week with single fraction radiosurgery according to the patient. At the time of his initial diagnosis, he did not have right-sided hemiparesis, but did report some right sided involuntary movements. On July 06, the patient presented to the ER secondary to acute onset of right sided weakness and inability to walk. He first had a CT of the head without contrast at revealed no acute stroke, but redemonstrated the known brain metastasis with vasogenic edema. CTA of the head and neck was unremarkable. The patient subsequently underwent an MRI of the b rain, initially without contrast which revealed the lesion measuring larger 1.5 x 2.1 cm with notable vasogenic edema. The patient has also been evaluated by pulmonology. An ultrasound of the right chest revealed significant fluid, and he underwent thoracentesis earlier today with removal of 2 L of fluid. Since his hospitalization, the patient has been restarted on 4 mg of Decadron 4 times a day. He states that he was down to once daily per his taper prior to admission. At this time, the patient reports the right side is still week, but has slightly improved from yesterday. He reports decreased dyspnea since having his thoracentesis. He denies headaches or nausea. Review of Systems Constitutional: Denies chills, Denies fever Eyes: denies blurred vision Ears, nose, mouth and throat: Denies headache Cardiovascular: Denies chest pain Respiratory: Reports cough, Denies dyspnea Musculoskeletal: Reports as per HPI Neurological: Reports as per HPI Psychiatric: Denies anxiety Past Medical History Past Medical History: Cancer, COPD, CVA/TIA, GERD/Reflux, Hypertension Additional Past Medical History / Comment(s): colon cancer, lung cancer History of Any Multi-Drug Resistant Organisms: None Reported Past Surgical History: Bowel Resection, Joint Replacement, Orthopedic Surgery Past Anesthesia/Blood Transfusion Reactions: No Reported Reaction Past Psychological History: No Psychological Hx Reported Smoking Status: Former smoker Past Alcohol Use History: None Reported Past Drug Use History: Marijuana Medications and Allergies Home Medications Medication Instructions Recorded Confirmed Type Atorvastatin [Lipitor] 40 mg PO HS 06/12/23 07/06/23 History Cholecalciferol [Vitamin D3 (25 25 mcg PO DAILY 06/12/23 07/06/23 History Mcg = 1000 Iu)] Cyanocobalamin (Vitamin B-12) 1,000 mcg PO DAILY 06/12/23 07/06/23 History [Vitamin B-12] DULoxetine HCL [Cymbalta] 60 mg PO HS 06/12/23 07/06/23 History HYDROcodone/APAP 10-325MG [[place] 1 tab PO Q6H PRN 06/12/23 07/06/23 History 10-325] Ipratropium-Albuterol Nebulize 3 ml INHALATION RT-TID 06/12/23 07/06/23 History [Duoneb 0.5 mg-3 mg/3 ml Soln] Montelukast [Singulair] 10 mg PO HS 06/12/23 07/06/23 History Morphine Sulfate ER [Ms Contin] 30 mg PO BID 06/12/23 07/06/23 History [place]-3 Fatty Acids [[place]-3] 4,000 mg PO DAILY 06/12/23 07/06/23 History Pantoprazole [Protonix] 40 mg PO HS 06/12/23 07/06/23 History Pregabalin [Lyrica] 75 mg PO BID 06/12/23 07/06/23 History Prochlorperazine [Compazine] 10 mg PO Q6H PRN 06/12/23 07/06/23 History Tamsulosin [Flomax] 0.4 mg PO HS 06/12/23 07/06/23 History Albuterol Sulfate [Ventolin HFA] 1 - 2 puff INHALATION RT-Q4H PRN 07/06/23 07/06/23 History Garlic 100 mg PO DAILY 07/06/23 07/06/23 History guaiFENesin [Mucinex] 1,200 mg PO BID 07/06/23 07/06/23 History polyethylene glycoL 3350 [Miralax] 17 gm PO DAILY 07/06/23 07/06/23 History predniSONE [Deltasone] See Taper PO DIRECTED 07/06/23 07/06/23 History Allergies Allergy/AdvReac Type Severity Reaction Status Date / Time alprazolam [From Xanax] Allergy Unknown Verified 07/06/23 17:08 scopolamine Allergy Unknown Verified 07/06/23 17:08 metoprolol [From Toprol XL] AdvReac Dizziness Verified 07/06/23 17:19 Physical Exam Vitals: Vital Signs Temp Pulse Pulse Resp BP BP Pulse Ox 07/07/23 15:45 88 07/07/23 15:33 85 07/07/23 14:00 88 20 07/07/23 12:00 97.9 F 84 19 128/84 98 07/07/23 08:56 94 L 07/07/23 08:00 97.5 F L 84 20 113/72 95 07/07/23 05:56 87 07/07/23 05:45 88 07/07/23 05:34 97.9 F 88 22 123/72 94 L 07/07/23 04:00 86 14 103/82 98 07/07/23 02:00 84 14 112/70 97 07/06/23 23:35 96 18 108/69 95 07/06/23 21:00 97.6 F 104 H 16 128/86 94 L 07/06/23 20:00 101 H 17 124/84 94 L 07/06/23 19:00 102 H 22 148/77 93 L 07/06/23 18:03 104 H 07/06/23 18:00 100 20 128/81 99 07/06/23 17:42 98 Intake and Output 07/07/23 07/07/23 07/07/23 06:59 14:59 22:59 Output Total 800 Balance -800 Output: Urine 800 Other: Voiding Method Urinal Urinal Weight 110 kg 110 kg - Constitutional General appearance: no acute distress - EENT Eyes: EOMI, PERRLA ENT: hearing grossly normal - Neck Neck: no lymphadenopathy - Respiratory Respiratory: right: diminished (diminished RLL ), left: CTA - Cardiovascular Rhythm: regular - Gastrointestinal General gastrointestinal: no distended, no tenderness - Integumentary Integumentary: no flushed, no jaundiced - Neurologic Neurologic: CNII-XII intact - Musculoskeletal Musculoskeletal: right sided weakness (RUE 4/5 strength, RLE 3/5 strength. ) - Psychiatric Psychiatric: A&O x's 3, appropriate affect Results CBC & Chem 7: 07/07/23 09:32 07/07/23 09:32 Labs: Abnormal Lab Results - Last 24 Hours (Table) 07/06/23 07/06/23 07/07/23 Range/Units 15:45 18:34 09:32 RBC 3.97 L (4.30-5.90) m/uL Hgb 10.8 L (13.0-17.5) gm/dL Hct 35.0 L (39.0-53.0) % MCHC 30.8 L (31.0-37.0) g/dL ABG pCO2 49 H (35-45) mmHg ABG pO2 79 L (83-108) mmHg ABG HCO3 33 H (21-25) mmol/L ABG Total CO2 34 H (19-24) mmol/L Carbon Dioxide 31 H (22-30) mmol/L BUN 21 H (9-20) mg/dL Glucose 139 H (74-99) mg/dL Total Protein 6.1 L (6.3-8.2) g/dL Albumin 3.2 L (3.5-5.0) g/dL 07/07/23 Range/Units 09:32 RBC (4.30-5.90) m/uL Hgb (13.0-17.5) gm/dL Hct (39.0-53.0) % MCHC (31.0-37.0) g/dL ABG pCO2 (35-45) mmHg ABG pO2 (83-108) mmHg ABG HCO3 (21-25) mmol/L ABG Total CO2 (19-24) mmol/L Carbon Dioxide (22-30) mmol/L BUN 23 H (9-20) mg/dL Glucose 207 H (74-99) mg/dL Total Protein 5.8 L (6.3-8.2) g/dL Albumin 3.0 L (3.5-5.0) g/dL CT scan - chest: report reviewed, image reviewed MRI - head: report reviewed, image reviewed Assessment and Plan Assessment: The patient is a 72-year-old male with a history of metastatic colon cancer. He has apparently undergone multiple lines of chemotherapy, and at this point is investigating potential clinical trial. Approximately 1 week ago, the patient underwent a single fraction radiosurgery to a metastatic lesion involving the left superior parietal lobe performed at [facility]. He presented to the hospital secondary to acute right hemiparesis. Plan: 1. Right hemiparesis: This is secondary to the patient's underlying metastatic lesion. Following radiosurgery, the patient has had some increase in his vasogenic edema. I explained that this could be simply a post radiation phenomenon, and that we would recommend restarting his steroid taper at a high dose and gradually decreasing. I explained that it is unlikely this lesion has progressed within 1 week of treatment. He does not appear to have any new lesions. Discussed outpatient follow-up with Dr. Redding once d/c. 2. Metastatic colon cancer: As detailed above, the patient primarily follows with an outside oncologist (Dr. Aguirre), but apparently he has been told that he has no additional systemic therapy options at this time. He reports that he has recently been evaluated by [facility] for a clinical trial. Time with Patient: Greater than 30
--- NOTE | 2023-07-07 16:33 | P.CONS ---
History of Present Illness - Reason for Consult Consult date: 07/07/23 Oncology care Requesting physician: Alvarez [place] - Chief Complaint neuro deficits - History of Present Illness Mr Hernandez is a 72-year-old male that we initially seen in consult 06/13/23 when he was admitted with SOB, hypoxia. He has PMH of metastatic colon adenocarcinoma with metastasis to brain and lung. Patient follows with Dr. Aguirre at [facility]. Patient had what sounds like SRS To a solitary brain lesion last week with Dr. Redding at [facility]. He was sent for assessment at [facility] to see if he qualified for clinical trial but, he is not a candidate for a phase 3 clinical trial, which is what his Primary Oncologist wanted him on. He is due to follow-up with his Dr. Aguirre very soon for further plans for treatment. He is not currently on any active treatment. He has been on multiple treatment regimens, about 7 from his wifes best estimate. Last systemic treatment was with Irinotecan, late Feb/early Apr, this was discontinued due to disease progression. There are plans for palliative radiation to start next week to lung. Patient states that he had up to go to the bathroom, walked into the room and fell backwards. He noted weakness in the right upper and lower extremity but, there was no problems with his speech, his reports that he had no facial droop or confusion. Patient is had a CT of the brain that's reporting a left parietal/occipital mass with vasogenic edema. Pending MRI. Neurology and Radiation oncology consulted. He is also reporting some shortness of breath, Chest x-ray showing 11.5 cm right pleural effusion. Pulmonary consulted. Review of Systems 10 point review of systems is negative except as stated in HPI Past Medical History Past Medical History: Cancer, COPD, CVA/TIA, GERD/Reflux, Hypertension Additional Past Medical History / Comment(s): colon cancer, lung cancer History of Any Multi-Drug Resistant Organisms: None Reported Past Surgical History: Bowel Resection, Joint Replacement, Orthopedic Surgery Past Anesthesia/Blood Transfusion Reactions: No Reported Reaction Past Psychological History: No Psychological Hx Reported Smoking Status: Former smoker Past Alcohol Use History: None Reported Past Drug Use History: Marijuana Medications and Allergies Home Medications Medication Instructions Recorded Confirmed Type Atorvastatin [Lipitor] 40 mg PO HS 06/12/23 07/06/23 History Cholecalciferol [Vitamin D3 (25 25 mcg PO DAILY 06/12/23 07/06/23 History Mcg = 1000 Iu)] Cyanocobalamin (Vitamin B-12) 1,000 mcg PO DAILY 06/12/23 07/06/23 History [Vitamin B-12] DULoxetine HCL [Cymbalta] 60 mg PO HS 06/12/23 07/06/23 History HYDROcodone/APAP 10-325MG [[place] 1 tab PO Q6H PRN 06/12/23 07/06/23 History 10-325] Ipratropium-Albuterol Nebulize 3 ml INHALATION RT-TID 06/12/23 07/06/23 History [Duoneb 0.5 mg-3 mg/3 ml Soln] Montelukast [Singulair] 10 mg PO HS 06/12/23 07/06/23 History Morphine Sulfate ER [Ms Contin] 30 mg PO BID 06/12/23 07/06/23 History [place]-3 Fatty Acids [[place]-3] 4,000 mg PO DAILY 06/12/23 07/06/23 History Pantoprazole [Protonix] 40 mg PO HS 06/12/23 07/06/23 History Pregabalin [Lyrica] 75 mg PO BID 06/12/23 07/06/23 History Prochlorperazine [Compazine] 10 mg PO Q6H PRN 06/12/23 07/06/23 History Tamsulosin [Flomax] 0.4 mg PO HS 06/12/23 07/06/23 History Albuterol Sulfate [Ventolin HFA] 1 - 2 puff INHALATION RT-Q4H PRN 07/06/23 07/06/23 History Garlic 100 mg PO DAILY 07/06/23 07/06/23 History guaiFENesin [Mucinex] 1,200 mg PO BID 07/06/23 07/06/23 History polyethylene glycoL 3350 [Miralax] 17 gm PO DAILY 07/06/23 07/06/23 History predniSONE [Deltasone] See Taper PO DIRECTED 07/06/23 07/06/23 History Allergies Allergy/AdvReac Type Severity Reaction Status Date / Time alprazolam [From Xanax] Allergy Unknown Verified 07/06/23 17:08 scopolamine Allergy Unknown Verified 07/06/23 17:08 metoprolol [From Toprol XL] AdvReac Dizziness Verified 07/06/23 17:19 Physical Exam Vitals: Vital Signs Temp Pulse Pulse Resp BP BP Pulse Ox 07/07/23 05:56 87 07/07/23 05:45 88 07/07/23 05:34 97.9 F 88 22 123/72 94 L 07/07/23 04:00 86 14 103/82 98 07/07/23 02:00 84 14 112/70 97 07/06/23 23:35 96 18 108/69 95 07/06/23 21:00 97.6 F 104 H 16 128/86 94 L 07/06/23 20:00 101 H 17 124/84 94 L 07/06/23 19:00 102 H 22 148/77 93 L 07/06/23 18:03 104 H 07/06/23 18:00 100 20 128/81 99 07/06/23 17:42 98 07/06/23 16:00 97 20 117/91 95 07/06/23 15:45 103 H 20 126/74 97 07/06/23 15:30 100 23 130/74 96 07/06/23 15:10 99.1 F 107 H 20 89/60 98 Intake and Output 07/06/23 07/07/23 07/07/23 22:59 06:59 14:59 Output Total 800 Balance -800 Output: Urine 800 Other: Voiding Method Urinal Weight 108.862 kg 110 kg - Constitutional General appearance: average body habitus, cooperative, no acute distress - EENT Eyes: anicteric sclerae ENT: hearing grossly normal, normal oropharynx - Neck Neck: no lymphadenopathy - Respiratory Respiratory: bilateral: CTA - Cardiovascular Rhythm: regular Heart sounds: normal: S1, S2 Abnormal Heart Sounds: no systolic murmur, no diastolic murmur, no rub, no S3 Gallop, no S4 Gallop, no click, no other leg Peripheral Edema: bilateral: None - Gastrointestinal General gastrointestinal: normal bowel sounds, soft - Integumentary Integumentary: normal - Neurologic Patient does not have any facial neurological deficits, family reports no evidence of changes in speech or facial symmetry. Neurologic: CNII-XII intact - Musculoskeletal Right lower extremity and right upper extremity weakness noted. Musculoskeletal: right sided weakness - Psychiatric Psychiatric: A&O x's 3, appropriate affect, intact judgment & insight Results CBC & Chem 7: 07/07/23 09:32 07/07/23 09:32 Labs: Abnormal Lab Results - Last 24 Hours (Table) 07/06/23 07/06/23 07/06/23 Range/Units 15:45 15:45 18:34 RBC 4.21 L (4.30-5.90) m/uL Hgb 11.7 L (13.0-17.5) gm/dL Hct 36.8 L (39.0-53.0) % ABG pCO2 49 H (35-45) mmHg ABG pO2 79 L (83-108) mmHg ABG HCO3 33 H (21-25) mmol/L ABG Total CO2 34 H (19-24) mmol/L Carbon Dioxide 31 H (22-30) mmol/L BUN 21 H (9-20) mg/dL Glucose 139 H (74-99) mg/dL Total Protein 6.1 L (6.3-8.2) g/dL Albumin 3.2 L (3.5-5.0) g/dL Chest x-ray: report reviewed CT scan - chest: report reviewed CT Scan - head: report reviewed Assessment and Plan (1) Metastasis to brain Current Visit: Yes Status: Acute Priority: High Code(s): C79.31 - SECONDARY MALIGNANT NEOPLASM OF BRAIN SNOMED Code(s): 58741825 (2) Right sided weakness Current Visit: Yes Status: Acute Priority: High Code(s): R53.1 - WEAKNESS SNOMED Code(s): 995709654 (3) Colon cancer Current Visit: No Status: Acute Priority: High Code(s): C18.9 - MALIGNANT NEOPLASM OF COLON, UNSPECIFIED SNOMED Code(s): 537279173 (4) Pleural effusion Current Visit: Yes Status: Acute Priority: High Code(s): J90 - PLEURAL EFFUSION, NOT ELSEWHERE CLASSIFIED SNOMED Code(s): 20322592 Plan: Metastatic colon cancer -Patient treats with Dr. Aguirre -No recent systemic therapy -Most recent pt had disease progression in the brain. Status post radiation last week. Plans for additional palliative radiation per patient and family -Pending follow-up with Medical Oncologist for plan of care Neurological deficits -From the brain imaging that's available, appears his though possibly patient is having some rebound swelling status post radiation therapy. He was started on steroids yesterday by the attending with quite a bit of improvement in his symptoms today. -Pending MRI -Pending Radiation Oncology assessment and recommendations Pleural effusion -Recurrent -Previously drained 06/14, no malignant cells found. -Send for cytology if thoracentesis planned -Pulmonary following attests: I seen and examined patient, performed H&P, developed impression and plan of care. Discussed with dictator. Agree with documentation, dictated as a scribe.
--- NOTE | 2023-07-07 16:34 | P.PN ---
Subjective Progress Note Date: 07/07/23 (joseph sandovaling seen at approx 0930) Patient is a 72-year-old male with a history of Metastatic colon cancer with mets to brain and lung with recurrent right sided pleural effusion, COPD, CVA/TIA, GERD, and HTN who presented with right sided weakness. On arrival to the emergency department he underwent an extensive evaluation. Labs were CBC, Coags and CMP which were essentially unremarkable. He underwent CTA head and neck which showed no flow-limiting stenosis bilaterally but did show an enlarging left parietal occipital mass with vasogenic edema. CT brain showed a 2 cm mass with surrounding vasogenic edema in the left parietal occipital vertex enlarging from 1.1 cm with no associated acute intracranial hemorrhage. Arrangements were made for admission. Case was discussed with neurology. Patient was started on dexamethasone. MRI was ordered. Seen by pulmonary and 2L of fluid was removed. Patient seen and examined at bedside with significant other present. He is having significant improvement in his weakness. His right upper extremity is back to normal, right lower extremity is significantly improved. He has no chest pain, shortness of breath, nausea, vomiting he is overall feeling much better than yesterday. Vital signs reviewed General: Nontoxic, no distress, appears at stated age Cardiovascular: S1S2 reg, no murmur, positive posterior tibial pulse bilateral, Lungs: CTA bilateral, no rhonchi, no rales, no accessory muscle use Abdominal: Soft, nontender to palpation, no guarding, no appreciable organomegaly Ext: No gross muscle atrophy, no edema b/l lower extremities, no contractures Neuro: CN II-XI grossly intact, minimal right lower extremity weakness Psych: Alert, oriented, appropriate affect Assessment/Plan: Right sided weakness, possible new onset stroke vs worsening of known left sided brain metastasis Toxic metabolic encephalopathy, improved Concern for seizure -Case discussed with oncology at length. They agree with awaiting MRI and in the meantime continuing with steroids and Keppra. They do recommend outpatient follow-up with his primary oncologist, Dr. Aguirre out of [place] for medical oncology. -Radiation oncology note reviewed: Right hemiparesis secondary to patient's underlying metastatic lesion. Increasing vasogenic edema following radio surgery or this could be a post radiation phenomenon recommend restarting steroid taper at a high dose and gradually decreasing. Continue follow-up with Dr. Redding once discharged. - ASA 81 mg daily, hold of on plavix with surrounding vasogenic edema, Lipitor 40 mg at night - Await MRI brain and echo - Await formal neurology recs - Await EEG - Keppra 500 mg IV BID -Seizure precautions - PT/OT/speech therapy recs -Decadron 4 mg every 6 hours Metastatic colon cancer with recurrent right sided pleural effusions - Pulm recs reviewed: s/p thoar with 2L of fluid removed Chronic: Hypertension GERD COPD without exacerbation Imaging: Await MRI and Echo Data Review: Labs reviewed from today include CBC, CMP, A1c, and cholesterol profile which are remarkable for hemoglobin 10.8, BUN 23, glucose 207 and A1c of 6. DVT prophylaxis: SCDs Anticipated discharge date: in 24-[address]: home This dictation was prepared using [employer] voice recognition software. Though every attempt is made to correct errors during dictation some may still exist. Objective - Vital Signs Vital signs: Vital Signs Temp 97.9 F 07/07/23 12:00 Pulse 88 07/07/23 15:45 Resp 20 07/07/23 14:00 BP 128/84 07/07/23 12:00 Pulse Ox 98 07/07/23 12:00 FiO2 Intake & Output 07/06/23 07/07/23 07/07/23 18:59 06:59 18:59 Output Total 800 Balance -800 Weight 108.862 kg 110 kg 110 kg Output: Urine 800 Other: Voiding Method Urinal Urinal - Labs CBC & Chem 7: 07/07/23 09:32 07/07/23 09:32 Labs: Abnormal Lab Results - Last 24 Hours (Table) 07/06/23 07/06/23 07/07/23 Range/Units 15:45 18:34 09:32 RBC 3.97 L (4.30-5.90) m/uL Hgb 10.8 L (13.0-17.5) gm/dL Hct 35.0 L (39.0-53.0) % MCHC 30.8 L (31.0-37.0) g/dL ABG pCO2 49 H (35-45) mmHg ABG pO2 79 L (83-108) mmHg ABG HCO3 33 H (21-25) mmol/L ABG Total CO2 34 H (19-24) mmol/L Carbon Dioxide 31 H (22-30) mmol/L BUN 21 H (9-20) mg/dL Glucose 139 H (74-99) mg/dL Total Protein 6.1 L (6.3-8.2) g/dL Albumin 3.2 L (3.5-5.0) g/dL 07/07/23 Range/Units 09:32 RBC (4.30-5.90) m/uL Hgb (13.0-17.5) gm/dL Hct (39.0-53.0) % MCHC (31.0-37.0) g/dL ABG pCO2 (35-45) mmHg ABG pO2 (83-108) mmHg ABG HCO3 (21-25) mmol/L ABG Total CO2 (19-24) mmol/L Carbon Dioxide (22-30) mmol/L BUN 23 H (9-20) mg/dL Glucose 207 H (74-99) mg/dL Total Protein 5.8 L (6.3-8.2) g/dL Albumin 3.0 L (3.5-5.0) g/dL
[2023-07-07] MEDS: SODIUM CHLORIDE 0.9% 1,000 ML IV SCH (18:46)
--- NOTE | 2023-07-07 19:07 | OP ---
OPERATIVE REPORT DATE OF SERVICE : PROCEDURE PERFORMED: Right-sided thoracentesis. PREOPERATIVE DIAGNOSIS: Recurrent right-sided pleural effusion. POSTOPERATIVE DIAGNOSIS: Recurrent right-sided pleural effusion. ANESTHESIA USED: 2 mL of 1% lidocaine. DESCRIPTION OF PROCEDURE: The patient was placed in the sitting upright position, the area of the chest below the scapula was prepared in a sterile fashion and drapes were applied. The area of the fluid was earlier localized with ultrasound guidance, and the marking was at the level of the 9th intercostal space and tip of the scapula. The area then was locally anesthetized with lidocaine, and 2 mL of lidocaine injected at the same site. Then, the needle was advanced into the pleural space and the fluid was localized with a needle. A small tiny incision was made at the same site, and a standard thoracentesis catheter and needle were used, advanced at the same site into the pleural space, and as the fluid was obtained, the catheter was advanced over the needle, and the needle was pulled out of the pleural space. Freely flowing fluid was removed, roughly 2000 mL of serosanguineous fluid removed from the right pleural space. The procedure was well tolerated, no complications. Chest x-ray showed no evidence of pneumothorax. Had significant improvement in the size of the right-sided pleural effusion. MMODL / IJN: [id number] /
[2023-07-07] MEDS: ATORVASTATIN 40 MG TAB PO SCH (20:54)
[2023-07-07] MEDS: PANTOPRAZOLE 40 MG TABLET PO SCH (20:55)
[2023-07-07] MEDS: MONTELUKAST 10 MG TAB PO SCH (20:55)
[2023-07-07] MEDS: TAMSULOSIN 0.4 MG CAP.ER.24H PO SCH (21:07)
[2023-07-08] MEDS: DEXAMETHASONE SOD PHOSPHATE 4 MG/ML 1 ML VIAL IVP SCH ×3 (05:04→17:29)
[2023-07-08] MEDS: IPRATROPIUM-ALBUTEROL 3 ML NEB INHALATION SCH ×4 (08:02→22:04)
[2023-07-08 09:02] LABS: HCT 35.7 % (39.0-53.0); HGB 11.4 gm/dL (13.0-17.5); Hypochromasia Slight; MCH 27.5 pg (25.0-35.0); MCHC 31.8 g/dL (31.0-37.0); MCV 86.4 fL (80.0-100.0); Mean Platelet Volume 7.3; Platelet Count 387 k/uL (150-450); RBC 4.13 m/uL (4.30-5.90); RDW 15.1 % (11.5-15.5); WBC 10.7 k/uL (3.8-10.6)
[2023-07-08 09:22] LABS: African American GFR (CKD) >90 (>60 ml/min/1.73 sqM); Anion Gap 8 mmol/L; Blood Urea Nitrogen 19 mg/dL (9-20); Calcium 9.5 mg/dL (8.4-10.2); Carbon Dioxide 29 mmol/L (22-30); Chloride 100 mmol/L (98-107); Glucose 137 mg/dL (74-99); Non-African American GFR(CKD) >90 (>60 ml/min/1.73 sqM); Potassium 4.6 mmol/L (3.5-5.1); Sodium 137 mmol/L (137-145)
[2023-07-08] MEDS: levETIRAcetam IV 500 MG/5 ML VIAL IVP SCH (09:23)
[2023-07-08] MEDS: HEPARIN SODIUM,PORCINE 5,000 UNIT/ML 1 ML VIAL SQ SCH ×2 (09:24→17:29)
[2023-07-08] MEDS: guaiFENesin 600 MG TABLET.ER PO SCH ×2 (09:24→20:24)
[2023-07-08] MEDS: PREGABALIN 75 MG CAP PO SCH ×2 (09:24→20:24)
[2023-07-08] MEDS: CYANOCOBALAMIN 500 MCG TAB PO SCH (09:24)
[2023-07-08] MEDS: ASPIRIN 81 MG PO SCH (09:24)
[2023-07-08] MEDS: MORPHINE SULFATE ER 30 MG TABLET PO SCH ×2 (09:25→20:23)
[2023-07-08] MEDS: polyethylene glycoL 3350 17 GM POWD.PACK PO SCH (09:25)
[2023-07-08] MEDS: CHOLECALCIFEROL 25 MCG (1000 IU) TABLET PO SCH (09:27)
--- NOTE | 2023-07-08 09:27 | P.CNNES ---
History of Present Illness Consult date: 07/07/23 Requesting physician: Alvarez [place] Reason for Consult: Right-sided weakness History of Present Illness: Patient is a 72-year-old male with history of metastatic colon cancer came to the hospital by ambulance yesterday at 3:01 PM for increased generalized weakness, and right-sided weakness. Patient's was also present, who provided with a history. Patient apparently suffered from a unwitnessed fall at around 6:30 AM yesterday morning. EMS was called, and he was given breathing treatment and he was pulled up and sat in the chair and he declined to go to the hospital. Patient does not remember as to the reason he fell to the floor. He then went to sleep after EMS left and then woke up at 10:30 AM and noticed his right arm and right leg were not working, therefore ambulance was called again and he was brought to the hospital. He also noticed burning in the right foot since he woke up this morning. As per EMS flow sheet, when they arrived, patient was complaining of increased weakness following a fall this morning. Patient was alert and oriented 4 with GCS of 15. Patient mentioned that he fell at 6:30 AM and was evaluated by EMS however he refused transport. Patient denied any injuries from the fall but notices that his weakness has been worsening. Patient complaining of right- sided weakness. Stroke scale was negative. Patient typically able to ambulate on his own however he has been unable to. Patient denied any chest pain, shortness of breath or abdominal pain. No dizziness. Patient's blood pressure at the scene was 155/84, pulse rate 101, respirations 18 saturation 95%. Blood test shows normal WBC hemoglobin 11.7, platelets are normal PT/PTT normal, CMP normal, CK 84, ABG with pH of 7.44, pCO2 49, pO2 79, saturation 96%. Chest x-ray showed increased right basilar opacity likely reflects effusion as well as underlying atelectasis or infiltrate. CT head revealed 2.0 cm mass, enlarged from 1.1 cm, with surrounding vasogenic edema left parietal occipital vertex. No acute intracranial hemorrhage. I personally reviewed CT had agree with the findings. CTA head and neck showed no flow-limiting stenosis bilateral carotid bifurcation, no acute abnormality of the [place]. Enlarging left parietal occipital mass with vasogenic edema. EKG shows atrial fibrillation with rapid ventricular response. Chest ultrasound revealed moderate size right pleural effusion with markings performed. Patient was not a candidate for TPA, as his last known well was > 4.5 hours, and because of presence of probable brain mass. Patient states that when he came to the hospital, he could not move his right arm or right leg, he would even drop Potato chip. He feels that the strength has improved about 40% since he came to the hospital. Patient apparently had an episode about 2-3 weeks ago, when on one night, patient's notices that everything was shaking in the middle of the night. This lasted for 10 seconds and he was not able to talk during that time. Once the shaking stopped, he was fine. They did not seek any medical attention for that. Patient's has noticed that last time he was in the hospital, he was having jerks sporadically. Patient was diagnosed with colon cancer 6 years ago, when he presented with bloody stools. He was found to have metastasis to the lungs about 3 years ago and metastasis to the brain diagnosed in May 2023. He had undergone a single fraction radiosurgery to the metastatic deposit on 07/01/2023. Patient has history of smoking tobacco 3 packs per day for 40 years, quit 2 years ago. Patient is to drink alcohol when younger, quit. Review of Systems Constitutional: Denies chills, Denies fever Eyes: denies blurred vision, denies diplopia, denies pain Ears: deny: decreased hearing, ear discharge Ears, nose, mouth and throat: Denies headache, Denies sore throat Cardiovascular: Denies chest pain, Denies shortness of breath Respiratory: Denies cough, Denies excessive sputum Integumentary: Denies pruritus, Denies rash Neurological: Reports as per HPI Past Medical History Past Medical History: Cancer, COPD, CVA/TIA, GERD/Reflux, Hypertension Additional Past Medical History / Comment(s): colon cancer, lung cancer History of Any Multi-Drug Resistant Organisms: None Reported Past Surgical History: Bowel Resection, Joint Replacement, Orthopedic Surgery Past Anesthesia/Blood Transfusion Reactions: No Reported Reaction Past Psychological History: No Psychological Hx Reported Smoking Status: Former smoker Past Alcohol Use History: None Reported Past Drug Use History: Marijuana Medications and Allergies Home Medications Medication Instructions Recorded Confirmed Type Atorvastatin [Lipitor] 40 mg PO HS 06/12/23 07/06/23 History Cholecalciferol [Vitamin D3 (25 25 mcg PO DAILY 06/12/23 07/06/23 History Mcg = 1000 Iu)] Cyanocobalamin (Vitamin B-12) 1,000 mcg PO DAILY 06/12/23 07/06/23 History [Vitamin B-12] DULoxetine HCL [Cymbalta] 60 mg PO HS 06/12/23 07/06/23 History HYDROcodone/APAP 10-325MG [[place] 1 tab PO Q6H PRN 06/12/23 07/06/23 History 10-325] Ipratropium-Albuterol Nebulize 3 ml INHALATION RT-TID 06/12/23 07/06/23 History [Duoneb 0.5 mg-3 mg/3 ml Soln] Montelukast [Singulair] 10 mg PO HS 06/12/23 07/06/23 History Morphine Sulfate ER [Ms Contin] 30 mg PO BID 06/12/23 07/06/23 History [place]-3 Fatty Acids [[place]-3] 4,000 mg PO DAILY 06/12/23 07/06/23 History Pantoprazole [Protonix] 40 mg PO HS 06/12/23 07/06/23 History Pregabalin [Lyrica] 75 mg PO BID 06/12/23 07/06/23 History Prochlorperazine [Compazine] 10 mg PO Q6H PRN 06/12/23 07/06/23 History Tamsulosin [Flomax] 0.4 mg PO HS 06/12/23 07/06/23 History Albuterol Sulfate [Ventolin HFA] 1 - 2 puff INHALATION RT-Q4H PRN 07/06/23 07/06/23 History Garlic 100 mg PO DAILY 07/06/23 07/06/23 History guaiFENesin [Mucinex] 1,200 mg PO BID 07/06/23 07/06/23 History polyethylene glycoL 3350 [Miralax] 17 gm PO DAILY 07/06/23 07/06/23 History predniSONE [Deltasone] See Taper PO DIRECTED 07/06/23 07/06/23 History Allergies Allergy/AdvReac Type Severity Reaction Status Date / Time alprazolam [From Xanax] Allergy Unknown Verified 07/06/23 17:08 scopolamine Allergy Unknown Verified 07/06/23 17:08 metoprolol [From Toprol XL] AdvReac Dizziness Verified 07/06/23 17:19 Physical Examination - Vital Signs Vital Signs: Vital Signs Temp Pulse Pulse Resp BP BP Pulse Ox 07/07/23 08:56 94 L 07/07/23 05:56 87 07/07/23 05:45 88 07/07/23 05:34 97.9 F 88 22 123/72 94 L 07/07/23 04:00 86 14 103/82 98 07/07/23 02:00 84 14 112/70 97 07/06/23 23:35 96 18 108/69 95 07/06/23 21:00 97.6 F 104 H 16 128/86 94 L 07/06/23 20:00 101 H 17 124/84 94 L 07/06/23 19:00 102 H 22 148/77 93 L 07/06/23 18:03 104 H 07/06/23 18:00 100 20 128/81 99 07/06/23 17:42 98 07/06/23 16:00 97 20 117/91 95 07/06/23 15:45 103 H 20 126/74 97 07/06/23 15:30 100 23 130/74 96 07/06/23 15:10 99.1 F 107 H 20 89/60 98 Intake and Output 07/06/23 07/07/23 07/07/23 22:59 06:59 14:59 Output Total 800 Balance -800 Output: Urine 800 Other: Voiding Method Urinal Weight 108.862 kg 110 kg Patient is an elderly male, in no acute distress. Patient is com fortably sitting on side of the bed. Patient is alert awake oriented to time place and person. Speech and language functions are normal. Patient can name and repeat very well. No aphasia or dysarthria. Attention, concentration and fund of knowledge is adequate. Detail cognitive function testing deferred. On cranial nerve examination, pupils are equal, round and reacting to light, visual barriga are full on confrontation, with no neglect on double simultaneous stimulation. Extraocular muscles are intact with no nystagmus. Face is symmetric, tongue protrudes to the midline. Palatal elevation and sensation normal, hearing and shoulder shrug normal, facial sensation normal. On muscle strength testing, (right/left) deltoid not checked because of severe arthritis bilaterally, biceps 5-/5, triceps 5/5, printing bindery assistant 4+/5-, hip flexion 4+/5, ankle dorsiflexion 4-/5. Patient has a chronic right foot drop since he had undergone some complication of the knee surgery about 20 years ago. He denies any further worsening of his right foot drop. Deep tendon reflexes are (right/left) biceps 3/2, brachioradialis 3/2, knees NC/2+, ankles 0/0 and plantars are upgoing bilaterally. Sensory to touch is equal with no neglect on double simultaneous stimulation. Cerebellar function showed no ataxia for [id number] testing. No dysdiadochokinesia. No ataxia for [id number] testing on either side. Tone and bulk of muscles normal. Gait deferred.. On general examination, there is no carotid bruit or murmur, S1-S2 audible. Chest is clear on consultation. Abdomen is soft nontender. No organomegaly, bowel sounds present. Mild peripheral edema. Results - Laboratory Findings CBC and BMP: 07/07/23 09:32 07/07/23 09:32 Abnormal Lab Findings: Abnormal Labs 07/06/23 07/06/23 07/06/23 15:45 15:45 18:34 RBC 4.21 L Hgb 11.7 L Hct 36.8 L MCHC ABG pCO2 49 H ABG pO2 79 L ABG HCO3 33 H ABG Total CO2 34 H Carbon Dioxide 31 H BUN 21 H Glucose 139 H Total Protein 6.1 L Albumin 3.2 L 07/07/23 07/07/23 09:32 09:32 RBC 3.97 L Hgb 10.8 L Hct 35.0 L MCHC 30.8 L ABG pCO2 ABG pO2 ABG HCO3 ABG Total CO2 Carbon Dioxide BUN 23 H Glucose 207 H Total Protein 5.8 L Albumin 3.0 L Assessment and Plan Assessment: * Metastatic colon cancer with a solitary metastasis to the brain involving the posterior left vertex with surrounding vasogenic edema. * Right-sided weakness, likely due to cerebral metastasis, with evidence of surrounding vasogenic cerebral edema. No evidence of acute stroke on the brain MRI. * Colon cancer * Pleural effusion, status post thoracentesis * Hypertension * COPD * X tobacco use Plan: * MRI of the brain was performed without contrast. It revealed evidence of 1.6 x 2.1 cm mass posterior left vertex with surrounding vasogenic edema can be compatible with neoplastic lesion. I personally reviewed MRI, agree with the findings. No acute ischemic process. * We will check MRI of the brain with contrast as well to evaluate for any other evidence of cerebral metastasis. * EEG evaluate for any interictal epileptiform activity * Patient empirically started on Keppra yesterday with loading dose of 1000 mg IV, followed by Keppra 500 mg orally twice a day. * It is not very clear if patient had a seizure. He had only 2 questionable events, one of them was 2 or 3 weeks ago when he he had some shaking spell in middle of the night lasting for 10 seconds, and the second event was unwitnessed fall, that resulted in current admission. Patient does not remember how he fell. Patient's family were concerned about duration of treatment with Keppra. If the EEG is normal, then Keppra could be potentially gradually discontinued, once cerebral metastasis comes under control. At pr esent it appears that the metastasis has become larger in size as compared to the computed tomography scan of head from 06/12/2023. * Radiation oncology has seen the patient, who feels the worsening of cerebral edema could be related to the radiation side effect. He recommended resuming steroids taper at a high dose and gradually decreasing. He does not believe that the lesion would progress within 1 week of treatment. * Patient currently on Decadron 4 mg IV every 6 hours. * 2-D echo revealed normal left ventricular EF 50-50%, mild concentric LVH, no obvious regional wall motion abnormality. Grade 1 diastolic dysfunction. No significant valvular dysfunction. * CTA of head and neck revealed no flow limiting stenosis bilateral carotid bifurcation. No acute abnormality of the [place]. * Hemoglobin A1c 6.0 * Lipid panel with cholesterol 149, LDL 66.5, HDL 58 and triglycerides 118. Continue Lipitor 40 mg daily. * Patient started on aspirin 81 mg daily. With above workup, may consider stopping aspirin, as the event is likely due to cerebral metastasis, not a TIA/CVA * Neurology will follow clinically. Thank you for the consult. Addendum: MRI of the brain with contrast revealed heterogeneous enhancing mass left posterior vertex with surrounding vasogenic edema, compatible with neoplasm. Time with Patient: Greater than 30
[2023-07-08] MEDS: HYDROcodone/APAP 10-325MG 1 EACH TAB PO PRN ×2 (13:17→22:25)
--- NOTE | 2023-07-08 14:27 | P.PN ---
Subjective Progress Note Date: 07/08/23 Principal diagnosis: Metastatic colon cancer with metastasis to the brain, and lungs with recurrent right-sided pleural effusion I am seeing this patient in consultation today 07/07/2023 for a right-sided recurrent pleural effusion. Patient is a 72-year-old male with past medical history significant for is that of colon cancer with metastasis to the lung and brain, bladder cancer with previous resection, hypertension, hyperlipidemia, CVA/TIA, COPD, and former smoker. He follows with an oncologist out of . Despite multiple previous treatment regimens, there is evidence of disease progression. Most recent PET scan performed at our facility shows multiple increasing bilateral lung masses with increasing SUV values compatible with worsening neoplastic process. Patient did undergo a right-sided thoracentesis on June 14, and a total of 2.4 L of fluid was drained. Fluid was exudative. No cytological malignant cells were identified. No bacterial organisms cultured. He was admitted to [facility] earlier last month for chiefly for shortness of breath and recurrent pleural effusion, plan was for possible Pleurx catheter, but there was not enough fluid to safely place the catheter by Cardiothoracic surgery. Patient presented this admission chiefly for right-sided weakness. He does have history of CVA/TIA and atrial fibrillation. He is a questionable historian. Apparently, there was some questionable seizure- like activity reported, however, he denies this to me. Patient did express a fall at home. Patient reportedly had a one-time radiation treatment at [facility] earlier last week. Brain CTA demonstrated no flow limiting stenosis of the bilateral carotids or acute abnormality the [place]. There was enlarging left parietal occipital mass with vasogenic edema. This was also demonstrated on the nonenhanced brain CT, which showed a 2 cm mass, enlarged from 1.1 cm previously, with surrounding vasogenic edema of the left parietal occipital vertex. No acute intracranial hemorrhage. There was mild effacement of the adjacent sulci, no midline shift. Brain MRI is pending. Patient has been loaded with Keppra and started on IV Decadron. Patient is currently sitting up in bed, on 3 L per minute nasal cannula, in no acute distress. Normally wears 2 L/m nasal cannula at home. He has history of oxygen dependent COPD. He does admit to some exertional shortness of breath and occasional cough with minimal and occasional yellow to green sputum production. Denies any fevers, chest pain, hemoptysis. No seizure-like activity noted. Chest x-ray on arrival shows an increasing right-sided pleural effusion with associated atelectasis and/or infiltrate. CBC was unremarkable on arrival. BMP shows sodium 139, potassium 4.3, chloride 100, serum bicarbonate 31, BUN 21, creatinine 0.78, glucose 139. ABG was done, does not explain the patient's confusion or seizure-like activity. Vital signs are stable. Patient was reevaluated today on 07/08/23, pulmonary-laws, the patient is doing well, relatively asymptomatic, no cough no wheezing no shortness of breath, states that his shortness of breath is significantly improved since I performed thoracentesis and I was able to drain basically 2 L of serosanguineous fluid from the right pleural space. A shunt was seen by radiation oncology, and he f elt that his right hemiparesis is secondary to his underlying metastatic lesion, patient had increase in his vasogenic edema, could be related to postradiation phenomenon. And the recommendation is to restart steroids burst and taper. Patient apparently had his radiation at [facility], and he will have further follow-up with [facility]/radiation oncology. Labs today showed WBC count of 10.7 hemoglobin 11.4, basic metabolic profile is normal and renal profile is normal Objective - Vital Signs Vital signs: Vital Signs Temp 98.2 F 07/08/23 08:35 Pulse 57 L 07/08/23 13:16 Resp 16 07/08/23 13:16 BP 139/73 07/08/23 13:16 Pulse Ox 96 07/08/23 13:16 FiO2 Intake & Output 07/07/23 07/08/23 07/08/23 18:59 06:59 18:59 Intake Total 118 Output Total 800 1460 Balance -800 -1460 118 Weight 110 kg Intake: Oral 118 Output: Urine 800 1460 Other: Voiding Method Urinal Urinal Urinal - Exam GENERAL EXAM: 72-year-old white male in no distress, on 3 L nasal cannula with O2 saturation 96% HEAD: Normocephalic and atraumatic EENT: PERRLA, EOMI, nonicteric, no neck masses no JVD, no stridor. CHEST: No chest wall deformity. LUNGS: Symmetrical chest expansion, good breast bilaterally laterally slightly diminished at the right base CVS: S1 and S2 normal with no audible murmur, regular rhythm. No extra heart sounds ABDOMEN: Obese soft nontender no megaly no rebound SKIN: No rashes Psychiatric: Normal mood affect and normal mental status examination. Extremities: No clubbing edema or cyanosis CENTRAL NERVOUS SYSTEM: Right-sided upper extremity grade 4/5, Right lower extremity strength graded 2/5, Left sided extremities strength grade 4/5. No other focal deficits noted. Cranial nerves II through XII intact. - Labs CBC & Chem 7: 07/08/23 08:13 07/08/23 08:13 Labs: Abnormal Lab Results - Last 24 Hours (Table) 07/08/23 07/08/23 Range/Units 08: 08:13 WBC 10.7 H (3.8-10.6) k/uL RBC 4.13 L (4.30-5.90) m/uL Hgb 11.4 L (13.0-17.5) gm/dL Hct 35.7 L (39.0-53.0) % Glucose 137 H (74-99) mg/dL Assessment and Plan Assessment: Impression: Recurrent right-sided pleural effusion, status post thoracentesis on 07/07 and 2 L of serosanguineous fluid was removed. History of underlying COPD, presently inactive Acute on chronic hypoxemic respiratory failure, secondary to above Metastatic colon cancer with diffuse pulmonary involvement and metastasis to the brain. Most recent PET scan done February, shows disease progression. Nonenhanced brain CT this admission, shows an enlarging 2 cm mass, previously measured 1.1 cm, with surrounding vasogenic edema of the left parietal occipital vertex. No acute intracranial hemorrhage. There was mild effacement of the adjacent sulci, no midline shift Right-sided weakness, possibly related to above or ischemic CVA. Possible seizure-like activity History of bladder cancer status post transurethral resection History of nephrolithiasis and left-sided hydronephrosis History of paroxysmal atrial fibrillation, not on anticoagulation Hyperlipidemia Hypertension History of CVA/TIA Former tobacco smoker Recommendation: Continue present supportive care measures Resume home meds Continue dexamethasone Continue bronchodilators Continue Keppra Consider discharge planning and follow-up on outpatient basis with oncology and radiation oncology Follow-up with thoracic surgery for Pleurx catheter placement in the future. Time with Patient: Less than 30
--- NOTE | 2023-07-08 16:50 | P.PN ---
Subjective Progress Note Date: 07/08/23 (delayed charting seen at approx 0915) Patient is a 72-year-old male with a history of Metastatic colon cancer with mets to brain and lung with recurrent right sided pleural effusion, COPD, CVA/TIA, GERD, and HTN who presented with right sided weakness. On arrival to the emergency department he underwent an extensive evaluation. Labs were CBC, Coags and CMP which were essentially unremarkable. He underwent CTA head and neck which showed no flow-limiting stenosis bilaterally but did show an enlarging left parietal occipital mass with vasogenic edema. CT brain showed a 2 cm mass with surrounding vasogenic edema in the left parietal occipital vertex enlarging from 1.1 cm with no associated acute intracranial hemorrhage. Arrangements were made for admission. Case was discussed with neurology. P atient was started on dexamethasone. MRI was ordered. Seen by pulmonary and 2L of fluid was removed. He was seen by radiation oncology who felt this was secondary to the surrounding vasogenic edema. MRI confirmed no evidence of acute CVA but did demonstrate the known metastatic left parietal lesion with surrounding vasogenic edema. Echocardiogram was ordered and was within normal limits. Patient did have improvement with his lower extremity weakness with the addition of steroids. Patient seen and examined at bedside with significant other present. He was initially doing well yesterday afternoon but yesterday evening started struggling again. He is unable to get himself from sitting to standing or off the toilet well. She does not feel they could manage at home and she is requesting rehabilitation. PT and OT have been consulted and asked to reevaluate patient. Vital signs reviewed General: Nontoxic, no distress, appears at stated age Cardiovascular: S1S2 reg, no murmur, positive posterior tibial pulse bilateral, Lungs: CTA bilateral, no rhonchi, no rales, no accessory muscle use Abdominal: Soft, nontender to palpation, no guarding, no appreciable organomegaly Ext: No gross muscle atrophy, no edema b/l lower extremities, no contractures Neuro: CN II-XI grossly intact, minimal right lower extremity weakness Psych: Alert, oriented, appropriate affect Assessment/Plan: Right sided weakness, due to left sided brain metastasis with surround vasogenic edema--likely increased from recent single fraction radiosurgery Toxic metabolic encephalopathy, improved Probable seizure and myoclonic jerking -Case discussed with radiation oncology. Patient will be discharged on Decadron 4 mg oral 4 times daily. Taper should be decreased frequency by 1 time daily each week for the next 4 weeks. Therefore, next week he would start on 4 mg 3 times daily, then 4 mg 2 times daily, and then 4 mg once daily. He will need to follow with Dr. Redding. - discontinue ASA and lipitor - Await EEG - Await [facility] neuro recs - Keppra 500 mg to PO BID, plan on conitnuing on discharge until vasogenic edema improved. - Seizure precautions - PT/OT/speech therapy recs - Decadron 4 mg IV every 6 hours Metastatic colon cancer with recurrent right sided pleural effusions - Pulm recs reviewed: s/p thoar with 2L of fluid removed -Pulmonary note reviewed: Continue thoracic care. Follow up with thoracic surgery in the outpatient setting for Pleurx catheter placement. Chronic: Hypertension GERD COPD without exacerbation Barriers to discharge: Plan have been for discharge home today. However significan other states patient has been very weak with getting out of bed and getting off the toilet. She does not feel that she can manage at home. They have asked to be evaluated for possible rehab Imaging: MRI of the brain without contrast reveals 1.6 x 2.1 cm mass in the left vertex with surrounding vasogenic edema consistent with neoplastic lesion MRI brain with contrast again shows heterogeneous enhancing mass in the left posterior vertex with surrounding vasogenic edema compatible with neoplasm Echo: EF 50-50%, mild concentric LVH, no obvious regional wall motion abnormality. Grade 1 diastolic dysfunction. No significant valvular dysfunction. Data Review: Labs reviewed from today includes CBC which is remarkable for white blood cell count 10.7, hemoglobin 11.4. Hemoglobin A1c is 6. Cholesterol profile reviewed and within normal limits. DVT prophylaxis: in AM Anticipated discharge date: [facility] Anticipated discharge place: home This dictation was prepared using [employer] voice recognition software. Though every attempt is made to correct errors during dictation some may still exist. Objective - Vital Signs Vital signs: Vital Signs Temp 98.4 F 07/08/23 15:28 Pulse 86 07/08/23 15:29 Resp 16 07/08/23 15:28 BP 124/72 07/08/23 15:28 Pulse Ox 96 07/08/23 15:28 FiO2 Intake & Output 07/07/23 07/08/23 07/08/23 18:59 06:59 18:59 Intake Total 118 Output Total 800 1460 Balance -800 -1460 118 Weight 110 kg Intake: Oral 118 Output: Urine 800 1460 Other: Voiding Method Urinal Urinal Urinal # Voids 2 - Labs CBC & Chem 7: 07/08/23 08:13 12 08:13 Labs: Abnormal Lab Results - Last 24 Hours (Table) 07/08/23 07/08/23 Range/Units 08:13 08:13 WBC 10.7 H (3.8-10.6) k/uL RBC 4.13 L (4.30-5.90) m/uL Hgb 11.4 L (13.0-17.5) gm/dL Hct 35.7 L (39.0-53.0) % Glucose 137 H (74-99) mg/dL
[2023-07-08] MEDS: TAMSULOSIN 0.4 MG CAP.ER.24H PO SCH (20:23)
[2023-07-08] MEDS: levETIRAcetam 500 MG TAB PO SCH (20:23)
[2023-07-08] MEDS: ATORVASTATIN 40 MG TAB PO SCH (20:23)
[2023-07-08] MEDS: PANTOPRAZOLE 40 MG TABLET PO SCH (20:24)
[2023-07-08] MEDS: MONTELUKAST 10 MG TAB PO SCH (20:24)
--- NOTE | 2023-07-08 21:58 | P.PN ---
Subjective Progress Note Date: 07/08/23 Principal diagnosis: Right sided weakness, metastatic colon adenocarcinoma In f/u today pt reports feeling good, his rt sided weakness is better then yesterday, no new neuro deficits to report. Objective - Vital Signs Vital signs: Vital Signs Temp 97.8 F 07/08/23 20:15 Pulse 82 07/08/23 20:15 Resp 16 07/08/23 20:15 BP 102/66 07/08/23 20:15 Pulse Ox 94 L 07/08/23 20:15 FiO2 Intake & Output 07/08/23 07/08/23 07/09/23 06:59 18:59 06:59 Intake Total 298 Output Total 1460 Balance -1460 298 Intake: Oral 298 Output: Urine 1460 Other: Voiding Method Urinal Urinal # Voids 2 - Constitutional General appearance: Present: average body habitus, cooperative, no acute distress - EENT Eyes: Present: anicteric sclerae, edentulous ENT: Present: hearing grossly normal - Respiratory Details: resp even and unlabored at rest - Cardiovascular Details: skin warm and dry - Peripheral edema leg Peripheral Edema: bilateral: None - Integumentary Integumentary: Present: normal - Neurologic Neurologic Comment(s): RLE strength slightly stronger then yesterday but remains weaker then the LLE Neurologic: Present: CNII-XII intact - Musculoskeletal Musculoskeletal: Present: right sided weakness - Psychiatric Psychiatric: Present: A&O x's 3, appropriate affect, intact judgment & insight - Labs CBC & Chem 7: 07/08/23 08:13 07/08/23 08:13 Labs: Abnormal Lab Results - Last 24 Hours (Table) 07/08/23 07/08/23 Range/Units 08:13 08:13 WBC 10.7 H (3.8-10.6) k/uL RBC 4.13 L (4.30-5.90) m/uL Hgb 11.4 L (13.0-17.5) gm/dL Hct 35.7 L (39.0-53.0) % Glucose 137 H (74-99) mg/dL Assessment and Plan (1) Metastasis to brain Current Visit: Yes Status: Acute Priority: High Code(s): C79.31 - SECONDARY MALIGNANT NEOPLASM OF BRAIN SNOMED Code(s): 36705093 (2) Right sided weakness Current Visit: Yes Status: Acute Priority: High Code(s): R53.1 - WEAKNESS SNOMED Code(s): 360513243 (3) Colon cancer Current Visit: No Status: Acute Priority: High Code(s): C18.9 - MALIGNANT NEOPLASM OF COLON, UNSPECIFIED SNOMED Code(s): 301997483 (4) Pleural effusion Current Visit: Yes Status: Acute Priority: High Code(s): J90 - PLEURAL EFFUSION, NOT ELSEWHERE CLASSIFIED SNOMED Code(s): 01068879 Plan: Metastatic colon cancer -Patient treats with Dr. Aguirre. reports that there are plans to try new oral agent once pt is out of rehab -Most recent pt had disease progression in the brain. Status post radiation last week. Possible plans for additional palliative radiation per patient and family -Pending follow-up with Medical Oncologist for plan of care Neurological deficits -Reviewed Rad Onc assessment of case. Most likely rebound swelling after SRS. Since starting steroids rt extremity weakness is improved. -Cont steroids with slow taper. Case discussed with Attending who had already discussed case with Rad Onc Pleural effusion -Recurrent -S/P 2L thoracentesis with improvement in resp status -Send for cytology-will contact lab as there are no visible orders for the same -Pulmonary following attests: I seen and examined patient, performed H&P, developed impression and plan of care. Discussed with dictator. Agree with documentation, dictated as a scribe.
--- NOTE | 2023-07-08 23:11 | EEG ---
ELECTROENCEPHALOGRAM REPORT PREAMBLE: This is a 72-year-old male with questionable seizure. The patient does have brain metastases. This study is performed to evaluate for any epileptiform activity. EEG FINDINGS: This is a 21-channel digital EEG recorded with video component, utilizing 10/20 international system with referential and bipolar montages. Background consists of moderately well-developed and regulated, mixed frequencies of some predominantly 6 to 7 hertz theta, intermixed with some alpha activity seen in bihemispheric region. Background seems to be slightly reactive to eye opening and closing. Photic driving response was not seen. There is intermittent focal slowing and some polymorphic delta range seen in the left occipitoparietal region. No definitive focal or generalized epileptiform activity was seen. No electrographic seizure was recorded. IMPRESSION: This is an abnormal EEG due to: 1. Presence of background slowing, mild degree, suggestive of encephalopathy. 2. Superimposed intermittent left parietotemporal slowing in dysrhythmic and delta range, suggestive of focal cortical neuronal dysfunction. No definitive epileptiform activity was seen. MMODL / IJN: [id number] /
[2023-07-09] MEDS: DEXAMETHASONE SOD PHOSPHATE 4 MG/ML 1 ML VIAL IVP SCH ×3 (00:17→12:48)
[2023-07-09] MEDS: HEPARIN SODIUM,PORCINE 5,000 UNIT/ML 1 ML VIAL SQ SCH ×3 (00:17→18:04)
[2023-07-09] MEDS: SODIUM CHLORIDE 0.9% 1,000 ML IV SCH ×2 (01:01→21:03)
[2023-07-09] MEDS: HYDROcodone/APAP 10-325MG 1 EACH TAB PO PRN ×2 (04:20→18:05)
[2023-07-09] MEDS: IPRATROPIUM-ALBUTEROL 3 ML NEB INHALATION SCH ×4 (08:44→21:01)
[2023-07-09] MEDS: MORPHINE SULFATE ER 30 MG TABLET PO SCH ×2 (09:03→20:57)
[2023-07-09] MEDS: CYANOCOBALAMIN 500 MCG TAB PO SCH (09:04)
[2023-07-09] MEDS: polyethylene glycoL 3350 17 GM POWD.PACK PO SCH (09:04)
[2023-07-09] MEDS: guaiFENesin 600 MG TABLET.ER PO SCH ×2 (09:04→20:57)
[2023-07-09] MEDS: PREGABALIN 75 MG CAP PO SCH ×2 (09:04→20:57)
[2023-07-09] MEDS: levETIRAcetam 500 MG TAB PO SCH ×2 (09:04→20:57)
[2023-07-09] MEDS: CHOLECALCIFEROL 25 MCG (1000 IU) TABLET PO SCH (09:04)
--- NOTE | 2023-07-09 11:33 | P.PN ---
Subjective Progress Note Date: 07/08/23 Patient was seen for a follow-up patient denies any headache. He states that he has trouble walking, and probably will be going to rehab. Patient's was also present. No further seizure-like spells. Objective - Vital Signs Vital signs: Vital Signs Temp 98.4 F 07/08/23 15:28 Pulse 86 07/08/23 15:29 Resp 16 07/08/23 15:28 BP 124/72 07/08/23 15:28 Pulse Ox 96 07/08/23 15:28 FiO2 Intake & Output 07/07/23 07/08/23 07/08/23 18:59 06:59 18:59 Intake Total 118 Output Total 800 1460 Balance -800 -1460 118 Weight 110 kg Intake: Oral 118 Output: Urine 800 1460 Other: Voiding Method Urinal Urinal Urinal # Voids 2 - Exam Essentially unchanged. Mentation is normal. - Labs CBC & Chem 7: 07/08/23 08:13 07/08/23 08:13 Labs: Abnormal Lab Results - Last 24 Hours (Table) 07/08/23 07/08/23 Range/Units 08:13 08:13 WBC 10.7 H (3.8-10.6) k/uL RBC 4.13 L (4.30-5.90) m/uL Hgb 11.4 L (13.0-17.5) gm/dL Hct 35.7 L (39.0-53.0) % Glucose 137 H (74-99) mg/dL Assessment and Plan Assessment: * Metastatic colon cancer with a solitary metastasis to the brain involving the posterior left vertex with surrounding vasogenic edema. Status post single fraction radiosurgery to the metastatic deposit on 07/01/2023. * Right-sided weakness, likely due to cerebral metastasis, with evidence of surrounding vasogenic cerebral edema. No evidence of acute stroke on the brain MRI. * Colon cancer * Pleural effusion, status post thoracentesis * Hypertension * COPD * X tobacco use Plan: * MRI of the brain was performed without contrast. It revealed evidence of 1.6 x 2.1 cm mass posterior left vertex with surrounding vasogenic edema can be compatible with neoplastic lesion. I personally reviewed MRI, agree with the findings. No acute ischemic process. * MRI of the brain with contrast revealed heterogeneous enhancing mass left posterior vertex with surrounding vasogenic edema, compatible with neoplasm. * EEG revealed presence of background slowing, mild degree, suggestive of encephalopathy. Superimposed intermittent left parietotemporal slowing in dysrhythmic delta range, suggestive of focal cortical neuronal dysfunction. No definitive epileptiform activity was seen. * Patient empirically started on Keppra yesterday with loading dose of 1000 mg IV, followed by Keppra 500 mg orally twice a day. * It is not very clear if patient had a seizure. He had only 2 questionable events, one of them was 2 or 3 weeks ago when he he had some shaking spell in middle of the night lasting for 10 seconds, and the second event was unwitnessed fall, that resulted in current admission. Patient does not remember how he fell. Patient's family were concerned about duration of treatment with Keppra. If the EEG is normal, then Keppra could be potentially gradually discontinued, once cerebral metastasis comes under control. At present it appears that the metastasis has become larger in size as compared to the computed tomography scan of head from 06/12/2023. * Radiation oncology has seen the patient, who feels the worsening of cerebral edema could be related to the radiation side effect. He recommended resuming steroids taper at a high dose and gradually decreasing. He does not believe that the lesion would progress within 1 week of treatment. * Patient currently on Decadron 4 mg IV every 6 hours. * 2-D echo revealed normal left ventricular EF 50-50%, mild concentric LVH, no obvious regional wall motion abnormality. Grade 1 diastolic dysfunction. No significant valvular dysfunction. * CTA of head and neck revealed no flow limiting stenosis bilateral carotid bifurcation. No acute abnormality of the [place]. * Hemoglobin A1c 6.0 * Lipid panel with cholesterol 149, LDL 66.5, HDL 58 and triglycerides 118. Continue Lipitor 40 mg daily. * Stop aspirin, as there is risk of hemorrhage into the metastasis. No evidence of stroke or TIA. * Patient possibly going to rehab. Neurologically clear. Recommend follow-up with neurologist outpatient.
--- NOTE | 2023-07-09 13:51 | P.PN ---
Subjective Progress Note Date: 07/09/23 Principal diagnosis: Metastatic colon cancer with metastasis to the brain, and lungs with recurrent right-sided pleural effusion I am seeing this patient in consultation today 07/07/2023 for a right-sided recurrent pleural effusion. Patient is a 72-year-old male with past medical history significant for is that of colon cancer with metastasis to the lung and brain, bladder cancer with previous resection, hypertension, hyperlipidemia, CVA/TIA, COPD, and former smoker. He follows with an oncologist out of [facility]. Despite multiple previous treatment regimens, there is evidence of disease progression. Most recent PET scan performed at our facility shows multiple increasing bilateral lung masses with increasing SUV values compatible with worsening neoplastic process. Patient did undergo a right-sided thoracentesis on June 14, and a total of 2.4 L of fluid was drained. Fluid was exudative. No cytological malignant cells were identified. No bacterial organisms cultured. He was admitted to [facility] earlier last month for chiefly for shortness of breath and recurrent pleural effusion, plan was for possible Pleurx catheter, but there was not enough fluid to safely place the catheter by Cardiothoracic surgery. Patient presented this admission chiefly for right-sided weakness. He does have history of CVA/TIA and atrial fibrillation. He is a questionable historian. Apparently, there was some questionable seizure- like activity reported, however, he denies this to me. Patient did express a fall at home. Patient reportedly had a one-time radiation treatment at [facility] earlier last week. Brain CTA demonstrated no flow limiting stenosis of the bilateral carotids or acute abnormality the [place]. There was enlarging left parietal occipital mass with vasogenic edema. This was also demonstrated on the nonenhanced brain CT, which showed a 2 cm mass, enlarged from 1.1 cm previously, with surrounding vasogenic edema of the left parietal occipital vertex. No acute intracranial hemorrhage. There was mild effacement of the adjacent sulci, no midline shift. Brain MRI is pending. Patient has been loaded with Keppra and started on IV Decadron. Patient is currently sitting up in bed, on 3 L per minute nasal cannula, in no acute distress. Normally wears 2 L/m nasal cannula at home. He has history of oxygen dependent COPD. He does admit to some exertional shortness of breath and occasional cough with minimal and occasional yellow to green sputum production. Denies any fevers, chest pain, hemoptysis. No seizure-like activity noted. Chest x-ray on arrival shows an increasing right-sided pleural effusion with associated atelectasis and/or infiltrate. CBC was unremarkable on arrival. BMP shows sodium 139, potassium 4.3, chloride 100, serum bicarbonate 31, BUN 21, creatinine 0.78, glucose 139. ABG was done, does not explain the patient's confusion or seizure-like activity. Vital signs are stable. Patient was reevaluated today on 07/08/23, pulmonary-laws, the patient is doing well, relatively asymptomatic, no cough no wheezing no shortness of breath, states that his shortness of breath is significantly improved since I performed thoracentesis and I was able to drain basically 2 L of serosanguineous fluid from the right pleural space. A shunt was seen by radiation oncology, and he f elt that his right hemiparesis is secondary to his underlying metastatic lesion, patient had increase in his vasogenic edema, could be related to postradiation phenomenon. And the recommendation is to restart steroids burst and taper. Patient apparently had his radiation at [facility], and he will have further follow-up with [facility]/radiation oncology. Labs today showed WBC count of 10.7 hemoglobin 11.4, basic metabolic profile is normal and renal profile is normal Patient was reevaluated today on 07/09/2023, patient feels good, denies any shortness of breath, he also feels that his left-sided weakness is getting better compared to yesterday. Patient is being considered for discharge and apparently he doesn't meet criteria to go to rehab, he may be considered for dis charge home. Patient asked Pleurx catheter placement, and explained time that this will be done in the future, since he just had thoracentesis, and it will take sometime for the fluid to build up for the surgeon to be able to place a Pleurx catheter safely. In the meantime the patient is on 3 L nasal cannula and his O2 sats 97% Objective - Vital Signs Vital signs: Vital Signs Temp 98.0 F 07/09/23 11:57 Pulse 74 07/09/23 12:10 Resp 16 07/09/23 08:59 BP 131/81 07/09/23 11:57 Pulse Ox 97 07/09/23 11:57 FiO2 Intake & Output 07/08/23 07/09/23 07/09/23 18:59 06:59 18:59 Intake Total 298 540 360 Output Total 550 Balance 298 -10 360 Intake: Oral 298 540 360 Output: Urine 550 Other: Voiding Method Urinal Urinal Urinal # Voids 2 2 - Exam GENERAL EXAM: 72-year-old white male in no distress, on 3 L nasal cannula with O2 saturation 97% HEAD: Normocephalic and atraumatic EENT: PERRLA, EOMI, nonicteric, no neck masses no JVD, no stridor. CHEST: No chest wall deformity. LUNGS: Symmetrical chest expansion, good breast bilaterally laterally slightly diminished at the right base CVS: S1 and S2 normal with no audible murmur, regular rhythm. No extra heart sounds ABDOMEN: Obese soft nontender no megaly no rebound SKIN: No rashes Psychiatric: Normal mood affect and normal mental status examination. Extremities: No clubbing edema or cyanosis CENTRAL NERVOUS SYSTEM: Alert and oriented 3, minimal right-sided weakness noted. - Labs CBC & Chem 7: 07/08/23 08:13 07/08/23 08:13 Assessment and Plan Assessment: Impression: Recurrent right-sided pleural effusion, status post thoracentesis on 07/07 and 2 L of serosanguineous fluid was removed. History of underlying COPD, presently inactive Acute on chronic hypoxemic respiratory failure, secondary to above Metastatic colon cancer with diffuse pulmonary involvement and metastasis to the brain. Most recent PET scan done February, shows disease progression. Nonenhanced brain CT this admission, shows an enlarging 2 cm mass, previously measured 1.1 cm, with surrounding vasogenic edema of the left parietal occipital vertex. No acute intracranial hemorrhage. There was mild effacement of the adjacent sulci, no midline shift Right-sided weakness, possibly related to above or ischemic CVA. Possible seizure-like activity History of bladder cancer status post transurethral resection History of nephrolithiasis and left-sided hydronephrosis History of paroxysmal atrial fibrillation, not on anticoagulation Hyperlipidemia Hypertension History of CVA/TIA Former tobacco smoker Recommendation: Continue present supportive care measures Resume home meds Continue dexamethasone consider transitioning to oral Decadron. Continue bronchodilators Continue Keppra Decision to discharge the patient would have to be made by the admitting physician, patient could follow up on outpatient basis with different consultants Follow-up with thoracic surgery for Pleurx catheter placement in the future. Time with Patient: Less than 30
--- NOTE | 2023-07-09 14:27 | P.PN ---
Subjective Progress Note Date: 07/09/23 Patient is a 72-year-old male with a history of Metastatic colon cancer with mets to brain and lung with recurrent right sided pleural effusion, COPD, CVA/TIA, GERD, and HTN who presented with right sided weakness. On arrival to the emergency department he underwent an extensive evaluation. Labs were CBC, Coags and CMP which were essentially unremarkable. He underwent CTA head and ne ck which showed no flow-limiting stenosis bilaterally but did show an enlarging left parietal occipital mass with vasogenic edema. CT brain showed a 2 cm mass with surrounding vasogenic edema in the left parietal occipital vertex enlarging from 1.1 cm with no associated acute intracranial hemorrhage. Arrangements were made for admission. Case was discussed with neurology. Patient was started on dexamethasone. MRI was ordered. Seen by pulmonary and 2L of fluid was removed. He was seen by radiation oncology who felt this was secondary to the surrounding vasogenic edema. MRI confirmed no evidence of acute CVA but did demonstrate the known metastatic left parietal lesion with surrounding vasogenic edema. Echocardiogram was ordered and was within normal limits. Patient did have improvement with his lower extremity weakness with the addition of steroids. She was seen and examined at bedside. No acute events overnight. Still having right-sided weakness. Vital signs reviewed General: Nontoxic, no distress, appears at stated age Cardiovascular: S1S2 reg, no murmur, positive posterior tibial pulse bilateral, Lungs: CTA bilateral, no rhonchi, no rales, no accessory muscle use Abdominal: Soft, nontender to palpation, no guarding, no appreciable organomegaly Ext: No gross muscle atrophy, no edema b/l lower extremities, no contractures Neuro: CN II-XI grossly intact, minimal right lower extremity weakness Psych: Alert, oriented, appropriate affect Assessment/Plan: Right sided weakness, due to left sided brain metastasis with surround vasogenic edema--likely increased from recent single fraction radiosurgery Toxic metabolic encephalopathy, improved Probable seizure and myoclonic jerking -Radiation oncology following Patient will be discharged on Decadron 4 mg oral 4 times daily. Taper should be decreased frequency by 1 time daily each week for the next 4 weeks. Therefore, next week he would start on 4 mg 3 times daily, then 4 mg 2 times daily, and then 4 mg once daily. He will need to follow with Dr. Redding. - discontinue ASA and lipitor -EEG showed no epileptiform discharges -Neurology following - Keppra 500 mg to PO BID, plan on conitnuing on discharge until vasogenic edema improved. - Seizure precautions - PT/OT/speech therapy recs -IV Decadron change to oral Metastatic colon cancer with recurrent right sided pleural effusions - s/p thoar with 2L of fluid removed -Pulmonary note reviewed: Continue thoracic care. Follow up with thoracic surgery in the outpatient setting for Pleurx catheter placement. Chronic: Hypertension GERD COPD without exacerbation Imaging: MRI of the brain without contrast reveals 1.6 x 2.1 cm mass in the left vertex with surrounding vasogenic edema consistent with neoplastic lesion MRI brain with contrast again shows heterogeneous enhancing mass in the left posterior vertex with surrounding vasogenic edema compatible with neoplasm Echo: EF 50-50%, mild concentric LVH, no obvious regional wall motion abnormal ity. Grade 1 diastolic dysfunction. No significant valvular dysfunction. Data Review: No new labs EKG reportedly, no epileptiform discharges DVT prophylaxis: Subcu heparin Anticipated discharge date: pending auth Anticipated discharge place: [facility] Objective - Vital Signs Vital signs: Vital Signs Temp 98.0 F 07/09/23 11:57 Pulse 74 07/09/23 12:10 Resp 16 07/09/23 08:59 BP 131/81 07/09/23 11:57 Pulse Ox 97 07/09/23 11:57 FiO2 Intake & Output 07/08/23 07/09/23 07/09/23 18:59 06:59 18:59 Intake Total 298 540 360 Output Total 550 Balance 298 -10 360 Intake: Oral 298 540 360 Output: Urine 550 Other: Voiding Method Urinal Urinal Urinal # Voids 2 2 - Labs CBC & Chem 7: 07/08/23 08:13 07/08/23 08:13
[2023-07-09] MEDS: dexAMETHasone 4 MG TAB PO SCH ×2 (18:05→20:57)
[2023-07-09] MEDS: PANTOPRAZOLE 40 MG TABLET PO SCH (20:57)
[2023-07-09] MEDS: MONTELUKAST 10 MG TAB PO SCH (20:57)
[2023-07-09] MEDS: TAMSULOSIN 0.4 MG CAP.ER.24H PO SCH (20:57)
[2023-07-09] MEDS: ATORVASTATIN 40 MG TAB PO SCH (20:58)
[2023-07-10] MEDS: HEPARIN SODIUM,PORCINE 5,000 UNIT/ML 1 ML VIAL SQ SCH ×2 (00:38→09:41)
[2023-07-10] MEDS: HYDROcodone/APAP 10-325MG 1 EACH TAB PO PRN ×2 (00:38→09:42)
[2023-07-10] MEDS: IPRATROPIUM-ALBUTEROL 3 ML NEB INHALATION SCH ×3 (09:00→15:47)
[2023-07-10] MEDS: polyethylene glycoL 3350 17 GM POWD.PACK PO SCH (09:29)
[2023-07-10] MEDS: guaiFENesin 600 MG TABLET.ER PO SCH (09:29)
[2023-07-10] MEDS: levETIRAcetam 500 MG TAB PO SCH (09:41)
[2023-07-10] MEDS: MORPHINE SULFATE ER 30 MG TABLET PO SCH (09:41)
[2023-07-10] MEDS: CYANOCOBALAMIN 500 MCG TAB PO SCH (09:41)
[2023-07-10] MEDS: CHOLECALCIFEROL 25 MCG (1000 IU) TABLET PO SCH (09:42)
[2023-07-10] MEDS: PREGABALIN 75 MG CAP PO SCH (09:42)
[2023-07-10 09:43] VITALS: RESP 18
[2023-07-10] MEDS: dexAMETHasone 4 MG TAB PO SCH ×2 (11:13→12:10)
--- NOTE | 2023-07-10 12:13 | P.PN ---
Subjective Progress Note Date: 07/09/23 Patient was seen for a follow-up. Patient denies any headache. Patient's family was not present. No further seizure-like spells. Objective - Vital Signs Vital signs: Vital Signs Temp 97.9 F 07/09/23 15:45 Pulse 80 07/09/23 16:20 Resp 16 07/09/23 15:45 BP 117/71 07/09/23 15:45 Pulse Ox 96 07/09/23 15:45 FiO2 Intake & Output 07/08/23 07/09/23 07/09/23 18:59 06:59 18:59 Intake Total 298 540 540 Output Total 550 Balance 298 -10 540 Intake: Oral 298 540 540 Output: Urine 550 Other: Voiding Method Urinal Urinal Urinal # Voids 2 2 - Exam Essentially unchanged. Mentation is normal. - Labs CBC & Chem 7: 07/08/23 08:13 07/08/23 08:13 Assessment and Plan Assessment: * Metastatic colon cancer with a solitary metastasis to the brain involving the posterior left vertex with surrounding vasogenic edema. Status post single fraction radiosurgery to the metastatic deposit on 07/01/2023. * Right-sided weakness, likely due to cerebral metastasis, with evidence of surrounding vasogenic cerebral edema. No evidence of acute stroke on the br n MRI. * Colon cancer * Pleural effusion, status post thoracentesis * Hypertension * COPD * X tobacco use Plan: * MRI of the brain was performed without contrast. It revealed evidence of 1.6 x 2.1 cm mass posterior left vertex with surrounding vasogenic edema can be compatible with neoplastic lesion. I personally reviewed MRI, agree with the findings. No acute ischemic process. * MRI of the brain with contrast revealed heterogeneous enhancing mass left posterior vertex with surrounding vasogenic edema, compatible with neoplasm. * EEG revealed presence of background slowing, mild degree, suggestive of encephalopathy. Superimposed intermittent left parietotemporal slowing in dysrhythmic delta range, suggestive of focal cortical neuronal dysfunction. No definitive epileptiform activity was seen. * Patient empirically started on Keppra yesterday with loading dose of 1000 mg IV, followed by Keppra 500 mg orally twice a day. * It is not very clear if patient had a seizure. He had only 2 questionable events, one of them was 2 or 3 weeks ago when he he had some shaking spell in middle of the night lasting for 10 seconds, and the second event was unwitnessed fall, that resulted in current admission. Patient does not remember how he fell. Patient's family were concerned about duration of treatment with Keppra. If the EEG is normal, then Keppra could be potentially gradually discontinued, once cerebral metastasis comes under control. At present it appears that the metastasis has become larger in size as compared to the computed tomography scan of head from 06/12/2023. * Radiation oncology has seen the patient, who feels the worsening of cerebral edema could be related to the radiation side effect. He recommended resuming steroids taper at a high dose and gradually decreasing. He does not believe that the lesion would progress within 1 week of treatment. * Patient currently on Decadron 4 mg IV every 6 hours. * 2-D echo revealed normal left ventricular EF 50-50%, mild concentric LVH, no obvious regional wall motion abnormality. Grade 1 diastolic dysfunction. No significant valvular dysfunction. * CTA of head and neck revealed no flow limiting stenosis bilateral carotid bifurcation. No acute abnormality of the [place]. * Hemoglobin A1c 6.0 * Lipid panel with cholesterol 149, LDL 66.5, HDL 58 and triglycerides 118. Continue Lipitor 40 mg daily. * Stop aspirin, as there is risk of hemorrhage into the metastasis. No evidence of stroke or TIA. * Patient possibly going to rehab. Neurologically clear. Recommend follow-up with neurologist outpatient.
[2023-07-10 13:10] VITALS: BP 146/82; PULSE 79; TEMP 98.1
--- NOTE | 2023-07-10 14:29 | P.DS ---
Providers Date of admission: 07/06/23 17:27 Expected date of discharge: 07/10/23 Attending physician: Virgen Denny DO Consults: 07/06/23 17:25 Consult Physician Routine Consulting Provider: Pilar Goldsmith Consult Reason/Comments: Right-sided weakness Do you want consulting provider notified?: Yes Consult Physician Routine Consulting Provider: Ronny Donohue Consult Reason/Comments: Oncological care Do you want consulting provider notified?: Yes 07/06/23 18:42 Consult Physician Routine Consulting Provider: Marino Garcia Consult Reason/Comments: brain met Do you want consulting provider notified?: Yes 07/06/23 18:47 Consult Physician Routine Consulting Provider: Robert Guthrie Consult Reason/Comments: recurrent right sided pleural effusion Do you want consulting provider notified?: Yes Primary care physician: Manuel Lopez Hospital Course: Discharge Diagnosis: Right sided weakness, due to left sided brain metastasis with surround vasogenic edema--likely increased from recent single fraction radiosurgery Toxic metabolic encephalopathy Probable seizure and myoclonic jerking Metastatic colon cancer with recurrent right sided pleural effusions Hypertension GERD COPD without exacerbation Hospital Course: Patient is a 72-year-old male with a history of Metastatic colon cancer with mets to brain and lung with recurrent right sided pleural effusion, COPD, CVA/TIA, GERD, and HTN who presented with right sided weakness. On arrival to the emergency department he underwent an extensive evaluation. Labs were CBC, Coags and CMP which were essentially unremarkable. He underwent CTA head and neck which showed no flow-limiting stenosis bilaterally but did show an enlarging left parietal occipital mass with vasogenic edema. CT brain showed a 2 cm mass with surrounding vasogenic edema in the left parietal occipital vertex enlarging from 1.1 cm with no associated acute intracranial hemorrhage. Arrangements were made for admission. Case was discussed with neurology. Patient was started on dexamethasone. MRI was ordered. Seen by pulmonary and 2L of fluid was removed. He was seen by radiation oncology who felt this was secondary to the surrounding vasogenic edema. MRI confirmed no evidence of acute CVA but did demonstrate the known metastatic left parietal lesion with surrounding vasogenic edema. Echocardiogram was ordered and was within normal limits. Patient did have improvement with his lower extremity weakness with the addition of steroids. EEG did not show any epileptiform discharges. Patient remains on oral Keppra. Due to his poor prognosis, patient opted for home with hospice care. Patient seen and examined at bedside. Vital signs reviewed and stable. General: Nontoxic, no distress, appears at stated age Cardiovascular: S1S2 reg, no murmur, positive posterior tibial pulse bilateral, Lungs: CTA bilateral, no rhonchi, no rales, no accessory muscle use Abdominal: Soft, nontender to palpation, no guarding, no appreciable organomegaly Ext: No gross muscle atrophy, no edema b/l lower extremities, no contractures Neuro: CN II-XI grossly intact, minimal right lower extremity weakness Psych: Alert, oriented, appropriate affect A total of 33 minutes of time were spent preparing this complex discharge summary. Patient was discharged on 07/10/23 at 1426. Patient Condition at Discharge: Stable Plan - Discharge Summary Discharge Rx Participant: No New Discharge Prescriptions: New dexAMETHasone ORAL [Hexadrol] 4 mg PO QID #70 tab levETIRAcetam [Keppra] 500 mg PO Q12HR #60 tab Continue Cholecalciferol [Vitamin D3 (25 Mcg = 1000 Iu)] 25 mcg PO DAILY [place]-3 Fatty Acids [[place]-3] 4,000 mg PO DAILY DULoxetine HCL [Cymbalta] 60 mg PO HS Tamsulosin [Flomax] 0.4 mg PO HS Pregabalin [Lyrica] 75 mg PO BID Pantoprazole [Protonix] 40 mg PO HS Montelukast [Singulair] 10 mg PO HS Ipratropium-Albuterol Nebulize [Duoneb 0.5 mg-3 mg/3 ml Soln] 3 ml INHALATION RT-TID Morphine Sulfate ER [Ms Contin] 30 mg PO BID Cyanocobalamin (Vitamin B-12) [Vitamin B-12] 1,000 mcg PO DAILY Albuterol Sulfate [Ventolin HFA] 1 - 2 puff INHALATION RT-Q4H PRN PRN Reason: Shortness Of Breath Atorvastatin [Lipitor] 40 mg PO HS HYDROcodone/APAP 10-325MG [[place] 10-325] 1 tab PO Q6H PRN PRN Reason: Pain Prochlorperazine [Compazine] 10 mg PO Q6H PRN PRN Reason: Nausea guaiFENesin [Mucinex] 1,200 mg PO BID polyethylene glycoL 3350 [Miralax] 17 gm PO DAILY Discontinued Garlic 100 mg PO DAILY predniSONE [Deltasone] See Taper PO DIRECTED Discharge Medication List Atorvastatin [Lipitor] 40 mg PO HS 06/12/23 [History] Cholecalciferol [Vitamin D3 (25 Mcg = 1000 Iu)] 25 mcg PO DAILY 06/12/23 [History] Cyanocobalamin (Vitamin B-12) [Vitamin B-12] 1,000 mcg PO DAILY 06/12/23 [History] DULoxetine HCL [Cymbalta] 60 mg PO HS 06/12/23 [History] HYDROcodone/APAP 10-325MG [[place] 10-325] 1 tab PO Q6H PRN 06/12/23 [History] Ipratropium-Albuterol Nebulize [Duoneb 0.5 mg-3 mg/3 ml Soln] 3 ml INHALATION RT-TID 06/12/23 [History] Montelukast [Singulair] 10 mg PO HS 06/12/23 [History] Morphine Sulfate ER [Ms Contin] 30 mg PO BID 06/12/23 [History] [place]-3 Fatty Acids [[place]-3] 4,000 mg PO DAILY 06/12/23 [History] Pantoprazole [Protonix] 40 mg PO HS 06/12/23 [History] Pregabalin [Lyrica] 75 mg PO BID 06/12/23 [History] Prochlorperazine [Compazine] 10 mg PO Q6H PRN 06/12/23 [History] Tamsulosin [Flomax] 0.4 mg PO HS 06/12/23 [History] Albuterol Sulfate [Ventolin HFA] 1 - 2 puff INHALATION RT-Q4H PRN 07/06/23 [History] guaiFENesin [Mucinex] 1,200 mg PO BID 07/06/23 [History] polyethylene glycoL 3350 [Miralax] 17 gm PO DAILY 07/06/23 [History] dexAMETHasone ORAL [Hexadrol] 4 mg PO QID #70 tab 07/10/23 [Rx] levETIRAcetam [Keppra] 500 mg PO Q12HR #60 tab 07/10/23 [Rx] Follow up Appointment(s)/Referral(s): Luis Carlos Curtis DO [Doctor of Osteopathic Medicine] - 1 Week Manuel Lopez MD [Primary Care Provider] - 1-2 days Luana Redding MD [REFERRING] - 1 Week Patient Instructions/Handouts: Hospice Care (GEN) Discharge Disposition: HOME WITH HOSPICE
--- NOTE | 2023-07-10 14:30 | P.PN ---
Subjective Progress Note Date: 07/10/23 Principal diagnosis: Metastatic colon cancer with metastasis to the brain, and lungs with recurrent right-sided pleural effusion I am seeing this patient in consultation today 07/07/2023 for a right-sided recurrent pleural effusion. Patient is a 72-year-old male with past medical history significant for is that of colon cancer with metastasis to the lung and brain, bladder cancer with previous resection, hypertension, hyperlipidemia, CVA/TIA, COPD, and former smoker. He follows with an oncologist out of [facility]. Despite multiple previous treatment regimens, there is evidence of disease progression. Most recent PET scan performed at our facility shows multiple increasing bilateral lung masses with increasing SUV values compatible with worsening neoplastic process. Patient did undergo a right-sided thoracentesis on June 14, and a total of 2.4 L of fluid was drained. Fluid was exudative. No cytological malignant cells were identified. No bacterial organisms cultured. He was admitted to [facility] earlier last month for chiefly for shortness of breath and recurrent pleural effusion, plan was for possible Pleurx catheter, but there was not enough fluid to safely place the catheter by Cardiothoracic surgery. Patient presented this admission chiefly for right-sided weakness. He does have history of CVA/TIA and atrial fibrillation. He is a questionable historian. Apparently, there was some questionable seizure- like activity reported, however, he denies this to me. Patient did express a fall at home. Patient reportedly had a one-time radiation treatment at [facility] earlier last week. Brain CTA demonstrated no flow limiting stenosis of the bilateral carotids or acute abnormality the [place]. There was enlarging left parietal occipital mass with vasogenic edema. This was also demonstrated on the nonenhanced brain CT, which showed a 2 cm mass, enlarged from 1.1 cm previously, with surrounding vasogenic edema of the left parietal occipital vertex. No acute intracranial hemorrhage. There was mild effacement of the adjacent sulci, no midline shift. Brain MRI is pending. Patient has been loaded with Keppra and started on IV Decadron. Patient is currently sitting up in bed, on 3 L per minute nasal cannula, in no acute distress. Normally wears 2 L/m nasal cannula at home. He has history of oxygen dependent COPD. He does admit to some exertional shortness of breath and occasional cough with minimal and occasional yellow to green sputum production. Denies any fevers, chest pain, hemoptysis. No seizure-like activity noted. Chest x-ray on arrival shows an increasing right-sided pleural effusion with associated atelectasis and/or infiltrate. CBC was unremarkable on arrival. BMP shows sodium 139, potassium 4.3, chloride 100, serum bicarbonate 31, BUN 21, creatinine 0.78, glucose 139. ABG was done, does not explain the patient's confusion or seizure-like activity. Vital signs are stable. Patient was reevaluated today on 07/08/23, pulmonary-laws, the patient is doing well, relatively asymptomatic, no cough no wheezing no shortness of breath, states that his shortness of breath is significantly improved since I performed thoracentesis and I was able to drain basically 2 L of serosanguineous fluid from the right pleural space. A shunt was seen by radiation oncology, and he f elt that his right hemiparesis is secondary to his underlying metastatic lesion, patient had increase in his vasogenic edema, could be related to postradiation phenomenon. And the recommendation is to restart steroids burst and taper. Patient apparently had his radiation at [facility], and he will have further follow-up with [facility]/radiation oncology. Labs today showed WBC count of 10.7 hemoglobin 11.4, basic metabolic profile is normal and renal profile is normal Patient was reevaluated today on 07/09/2023, patient feels good, denies any shortness of breath, he also feels that his left-sided weakness is getting better compared to yesterday. Patient is being considered for discharge and apparently he doesn't meet criteria to go to rehab, he may be considered for dis charge home. Patient asked Pleurx catheter placement, and explained time that this will be done in the future, since he just had thoracentesis, and it will take sometime for the fluid to build up for the surgeon to be able to place a Pleurx catheter safely. In the meantime the patient is on 3 L nasal cannula and his O2 sats 97% Reevaluated today on 07/10/2023, patient is doing well, his pulmonary status is stable patient became less short of breath after his last thoracentesis few days ago were and 2 L of fluid were removed. Patient is being considered for discharge to rehab, and that is being in progress. WBC count is 10.7 hemoglobin is 11.4, basic metabolic profile is normal and renal profile is normal Objective - Vital Signs Vital signs: Vital Signs Temp 98.1 F 07/10/23 12:00 Pulse 79 07/10/23 12:00 Resp 18 07/10/23 12:00 BP 146/82 07/10/23 12:00 Pulse Ox 97 07/10/23 12:00 FiO2 Intake & Output 07/09/23 07/10/23 07/10/23 18:59 06:59 18:59 Intake Total 540 540 534 Output Total 200 Balance 540 340 534 Intake: Oral 540 540 534 Output: Urine 200 Other: Voiding Method Urinal Urinal Urinal # Voids 2 2 2 # Bowel Movements 1 - Exam GENERAL EXAM: 72-year-old white male in no distress, on 2 L nasal cannula and O2 sats is 97% HEAD: Normocephalic and atraumatic EENT: PERRLA, EOMI, nonicteric, no neck masses no JVD, no stridor. CHEST: No chest wall deformity. LUNGS: Slightly diminished breath sounds at the right base to crackles or rhonchi or wheezes CVS: S1 and S2 normal with no audible murmur, regular rhythm. No extra heart sounds ABDOMEN: Obese soft nontender no megaly no rebound SKIN: No rashes Psychiatric: Normal mood affect and normal mental status examination. Extremities: No clubbing edema or cyanosis CENTRAL NERVOUS SYSTEM: Alert and oriented 3, minimal right-sided weakness n oted. - Labs CBC & Chem 7: 07/08/23 08:13 07/08/23 08:13 Assessment and Plan Assessment: Impression: Recurrent right-sided pleural effusion, status post thoracentesis on 07/07 and 2 L of serosanguineous fluid was removed. History of underlying COPD, presently inactive Acute on chronic hypoxemic respiratory failure, secondary to above Metastatic colon cancer with diffuse pulmonary involvement and metastasis to the brain. Most recent PET scan done February, shows disease progression. Nonenhanced brain CT this admission, shows an enlarging 2 cm mass, previously measured 1.1 cm, with surrounding vasogenic edema of the left parietal occipital vertex. No acute intracranial hemorrhage. There was mild effacement of the adjacent sulci, no midline shift Right-sided weakness, possibly related to above or ischemic CVA. Possible seizure-like activity History of bladder cancer status post transurethral resection History of nephrolithiasis and left-sided hydronephrosis History of paroxysmal atrial fibrillation, not on anticoagulation Hyperlipidemia Hypertension History of CVA/TIA Former tobacco smoker Recommendation: Continue present supportive care measures Discharge planning is in progress to rehab. Continue dexamethasone consider transitioning to oral Decadron. Continue bronchodilators, to be continued on outpatient basis and the patient to go back on his usual bronchodilators as well as his discharge Continue Keppra Follow-up with thoracic surgery for Pleurx catheter placement in the future. We'll clear the patient for discharge if cleared by other consultants Time with Patient: Less than 30
--- NOTE | 2023-07-10 15:51 | P.PN ---
Subjective Progress Note Date: 07/10/23 At today's visit patient is reporting improvement in right-sided weakness but is still experiencing some weakness in right lower extremity. Objective - Vital Signs Vital signs: Vital Signs Temp 98.1 F 07/10/23 12:00 Pulse 79 07/10/23 12:00 Resp 18 07/10/23 12:00 BP 146/82 07/10/23 12:00 Pulse Ox 97 07/10/23 12:00 FiO2 Intake & Output 07/09/23 07/10/23 07/10/23 18:59 06:59 18:59 Intake Total 540 540 534 Output Total 200 Balance 540 340 534 Intake: Oral 540 540 534 Output: Urine 200 Other: Voiding Method Urinal Urinal Urinal # Voids 2 2 2 # Bowel Movements 1 - Constitutional General appearance: Present: no acute distress - EENT Eyes: Present: EOMI ENT: Present: hearing grossly normal - Respiratory Details: breathing even and unlabored - Cardiovascular Details: skin warm and dry - Integumentary Integumentary: Absent: cyanotic - Neurologic Neurologic Comment(s): right lower extremity, strength 3/5 - Musculoskeletal Musculoskeletal: Present: right sided weakness - Psychiatric Psychiatric: Present: A&O x's 3 - Labs CBC & Chem 7: 07/08/23 08:13 07/08/23 08:13 Assessment and Plan (1) Metastasis to brain Current Visit: Yes Status: Acute Priority: High Code(s): C79.31 - SECONDARY MALIGNANT NEOPLASM OF BRAIN SNOMED Code(s): 56770142 (2) Pleural effusion Current Visit: Yes Status: Acute Priority: High Code(s): J90 - PLEURAL EFFUSION, NOT ELSEWHERE CLASSIFIED SNOMED Code(s): 25082343 (3) Right sided weakness Current Visit: Yes Status: Acute Priority: High Code(s): R53.1 - WEAKNESS SNOMED Code(s): 394773786 (4) Colon cancer Current Visit: Yes Status: Acute Priority: High Code(s): C18.9 - MALIGNANT NEOPLASM OF COLON, UNSPECIFIED SNOMED Code(s): 154100899 Plan: Metastatic colon cancer -Patient treats with Dr. Aguirre. reports that there are plans to f/u at for evaluation for clinical trials, but missed f/u due to hospitalization -Most recent pt had disease progression in the brain. Status post radiation last week. Possible plans for additional palliative radiation per patient and family -Pending follow-up with Medical Oncologist for plan of care -Did speak with pt today regarding palliative and hospice vs continuing with treatment. Pt states that he would still like to f/u with possibility of clinical trial, but would like informational meeting regarding hospice/palliative care. Consult has been placed Neurological deficits -Reviewed Rad Onc assessment of case. Most likely rebound swelling after SRS. Since starting steroids rt extremity weakness has improved. -Cont steroids with slow taper. Case discussed with Attending who had already discussed case with Rad Onc Pleural effusion -Recurrent -S/P 2L thoracentesis with improvement in resp status -Cytology on 06/14/23 was negative. It appears repeat cytology was not sent on pleural fluid. -Pulm following
== END 2023-07-10 16:18 | disposition hospice, home (50) | DRG 54 ==
LOC: EC 15:01 → 3SCARD 17:27
PROVIDERS: ADMIT Internal Medicine; ATTEND Internal Medicine
PROC: 0W993ZZ Drainage of Right Pleural Cavity, Percutaneous Approach (ICD-10-PCS; principal; 2023-07-07)
DX: C79.31 Secondary malignant neoplasm of brain (principal); G92.8 Other toxic encephalopathy; G93.6 Cerebral edema; J96.21 Acute and chronic respiratory failure with hypoxia; C78.01 Secondary malignant neoplasm of right lung; J91.0 Malignant pleural effusion; E78.5 Hyperlipidemia, unspecified; I48.0 Paroxysmal atrial fibrillation; I10 Essential (primary) hypertension; J44.9 Chronic obstructive pulmonary disease, unspecified; K21.9 Gastro-esophageal reflux disease without esophagitis; R56.9 Unspecified convulsions; W18.30XA Fall on same level, unspecified, initial encounter; Z51.5 Encounter for palliative care; Y92.009 Unspecified place in unspecified non-institutional (private) residence as the place of occurrence of the external cause; Z79.82 Long term (current) use of aspirin; Z79.899 Other long term (current) drug therapy; Z85.46 Personal history of malignant neoplasm of prostate; Z88.8 Allergy status to other drugs, medicaments and biological substances; Z85.038 Personal history of other malignant neoplasm of large intestine; Z90.49 Acquired absence of other specified parts of digestive tract; Z85.51 Personal history of malignant neoplasm of bladder; Z86.73 Personal history of transient ischemic attack (TIA), and cerebral infarction without residual deficits; Z87.442 Personal history of urinary calculi; Z92.3 Personal history of irradiation; Z99.81 Dependence on supplemental oxygen
CPT/HCPCS: 36415; 36600; 70450; 70496; 70498; 70551; 70552; 71045; 71046; 76604; 80048; 80053; 80061; 82550; 82805; 83036; 85025; 85027; 85610; 85730; 93005; 93306; 94640; 94760; 95816; 96372; 96374; 96375; 96376; 99291

== ENCOUNTER 2023-07-24 13:48 | Inpatient (IN) | payer MEDICARE ==
[2023-07-24] MEDS ORDERED: SODIUM CHLORIDE 0.9% 1,000 ML IV STA (14:00)
[2023-07-24] MEDS ORDERED: IPRATROPIUM-ALBUTEROL 3 ML NEB INHALATION STA (14:00)
--- NOTE | 2023-07-24 14:01 | ED ---
SOB HPI - General Chief Complaint: Shortness of Breath Stated Complaint: SOB Time Seen by Provider: 07/24/23 13:58 Source: EMS, RN notes reviewed, old records reviewed, Caregiver Mode of arrival: EMS Limitations: no limitations - History of Present Illness Initial Comments: This is a 72-year-old male to the emergency department today patient does have c olon cancer liver cancer lung cancer brain cancer off from metastasis. This patient presents today for severe shortness of breath heart racing weakness exertional dyspnea. Patient has known history of similar symptoms of shortness of breath with increased pleural effusion for evaluation of shortness of breath. Patient has a long history medical history and recent medical history of cancer multiple and significant areas metastasis. MD Complaint: shortness of breath, cough -: days(s) Severity: moderate Severity scale (1-10): 6 Quality: dull Improves With: nothing Known History Of: COPD Context: recent URI, anxiety, recent illness Associated Symptoms: chest pain, cough, orthopnea, palpitations Treatments Prior to Arrival: none - Related Data Home Medications Medication Instructions Recorded Confirmed Atorvastatin [Lipitor] 40 mg PO HS 06/12/23 07/30/23 Cholecalciferol [Vitamin D3 (25 25 mcg PO DAILY 06/12/23 07/30/23 Mcg = 1000 Iu)] Cyanocobalamin (Vitamin B-12) 1,000 mcg PO DAILY 06/12/23 07/30/23 [Vitamin B-12] DULoxetine HCL [Cymbalta] 60 mg PO HS 06/12/23 07/30/23 HYDROcodone/APAP 10-325MG [[place] 1 tab PO Q6H PRN 06/12/23 07/31/23 10-325] Montelukast [Singulair] 10 mg PO HS 06/12/23 07/30/23 Morphine Sulfate ER [Ms Contin] 30 mg PO BID 06/12/23 07/30/23 [place]-3 Fatty Acids [[place]-3] 4,000 mg PO DAILY 06/12/23 07/30/23 Pantoprazole [Protonix] 40 mg PO HS 06/12/23 07/30/23 Pregabalin [Lyrica] 75 mg PO BID 06/12/23 07/30/23 Prochlorperazine [Compazine] 10 mg PO Q6H PRN 06/12/23 07/30/23 Tamsulosin [Flomax] 0.4 mg PO HS 06/12/23 07/30/23 Albuterol Sulfate [Ventolin HFA] 1 - 2 puff INHALATION RT-Q4H PRN 07/06/23 07/31/23 guaiFENesin [Mucinex] 1,200 mg PO BID 07/06/23 07/30/23 polyethylene glycoL 3350 [Miralax] 17 gm PO DAILY 07/06/23 07/30/23 Garlic 1,000 mg PO DAILY 07/24/23 07/30/23 dexAMETHasone ORAL [Hexadrol] See Taper PO DIRECTED 07/24/23 07/30/23 Previous Rx's Medication Instructions Recorded levETIRAcetam [Keppra] 500 mg PO Q12HR #60 tab 07/10/23 Ipratropium-Albuterol Nebulize 3 ml INHALATION RT-QID #0 07/26/23 [Duoneb 0.5 mg-3 mg/3 ml Soln] Metoprolol Tartrate [Lopressor] 25 mg PO BID #60 tab 07/26/23 Allergies Allergy/AdvReac Type Severity Reaction Status Date / Time alprazolam [From Xanax] Allergy Unknown Verified 07/30/23 22:38 scopolamine Allergy Unknown Verified 07/30/23 22:38 metoprolol [From Toprol XL] AdvReac Dizziness Verified 07/30/23 22:38 Review of Systems ROS Statement: Those systems with pertinent positive or pertinent negative responses have been documented in the HPI. ROS Other: All systems not noted in ROS Statement are negative. Past Medical History Past Medical History: Cancer, COPD, CVA/TIA, GERD/Reflux, Hypertension Additional Past Medical History / Comment(s): S4 colon cancer, lung cancer, bladder cancer, brain cancer History of Any Multi-Drug Resistant Organisms: None Reported Past Surgical History: Bowel Resection, Joint Replacement, Orthopedic Surgery Past Anesthesia/Blood Transfusion Reactions: No Reported Reaction Past Psychological History: No Psychological Hx Reported Smoking Status: Former smoker Past Alcohol Use History: None Reported Past Drug Use History: Marijuana General Exam Limitations: no limitations General appearance: alert, anxious, in distress Head exam: Present: atraumatic, normocephalic, normal inspection Eye exam: Present: normal appearance, PERRL, EOMI. Absent: scleral icterus, conjunctival injection, periorbital swelling ENT exam: Present: normal exam, mucous membranes moist Neck exam: Present: normal inspection. Absent: tenderness, meningismus, lymphadenopathy Respiratory exam: Present: respiratory distress, wheezes, accessory muscle use, decreased breath sounds, prolonged expiratory. Absent: rales, rhonchi, stridor Cardiovascular Exam: Present: tachycardia, irregular rhythm, normal heart sounds. Absent: systolic murmur, diastolic murmur, rubs, gallop, clicks GI/Abdominal exam: Present: soft, normal bowel sounds. Absent: distended, tenderness, guarding, rebound, rigid Extremities exam: Present: normal inspection, full ROM, normal capillary refill. Absent: tenderness, pedal edema, joint swelling, calf tenderness Back exam: Present: normal inspection Neurological exam: Present: alert, oriented X3, CN II-XII intact Psychiatric exam: Present: normal affect, normal mood Skin exam: Present: warm, dry, intact, normal color. Absent: rash Course Vital Signs 07/24/23 07/24/23 07/24/23 13:49 14:24 14:40 Temperature 98.0 F Pulse Rate 102 H 110 H 110 H Respiratory 24 Rate Blood Pressure 126/104 O2 Sat by Pulse 93 L Oximetry 07/24/23 07/24/23 07/24/23 18:01 20:05 22:00 Temperature 98.1 F Pulse Rate 134 H 93 93 Respiratory 20 20 19 Rate Blood Pressure 97/72 113/74 101/77 O2 Sat by Pulse 95 96 93 L Oximetry 07/24/23 07/24/23 07/24/23 23:00 23:15 23:20 Temperature Pulse Rate 134 H 144 H 140 H Respiratory 20 14 18 Rate Blood Pressure 114/72 O2 Sat by Pulse 96 Oximetry 07/24/23 07/24/23 07/24/23 23:25 23:30 23:35 Temperature Pulse Rate 152 H 95 95 Respiratory 17 15 12 Rate Blood Pressure O2 Sat by Pulse Oximetry 07/24/23 07/24/23 07/24/23 23:40 23:45 23:50 Temperature Pulse Rate 92 91 86 Respiratory 14 16 14 Rate Blood Pressure O2 Sat by Pulse Oximetry 07/24/23 07/25/23 07/25/23 23:55 00:00 00:45 Temperature 98.5 F Pulse Rate 87 86 90 Respiratory 14 13 20 Rate Blood Pressure 133/82 O2 Sat by Pulse 94 L Oximetry - Reevaluation(s) Reevaluation #1: 07/24/23 15:40 Medical record is reviewed Reevaluation #2: 07/24/23 20:17 Patient has no real improvement in symptoms here in the ER Reevaluation #3: 07/24/23 20:17 Patient informed results questions answered Reevaluation #4: 07/24/23 15:40 Was pt. sent in by a medical professional or institution (, NICOLE, ASSOCIATE PROFESSOR OF GEOGRAPHY, urgent care, hospital, or snf...) When possible be specific @ -no Did you speak to anyone other than the patient for history (EMS, parent, family, police, friend...)? What history was obtained from this source @ -no Did you review nursing and triage notes (agree or disagree)? Why? @ -agree Are old charts reviewed (outside hosp., previous admission, EMS record, old EKG, old radiological studies, urgent care reports/EKG's, snf records)? Report findings @ -yes Differential Diagnosis (chest pain, altered mental status, abdominal pain women, abdominal pain men, vaginal bleeding, weakness, fever, dyspnea, syncope, headache, dizziness, GI bleed, back pain, seizure, CVA, palpatations, mental health, musculoskeletal)? @ -prior EKG interpreted by me (3pts min.). @ -yes X-rays interpreted by me (1pt min.). @ -yes is a right-sided pleural effusion CT interpreted by me (1pt min.). @ -no U/S interpreted by me (1pt. min.). @ -no What testing was considered but not performed or refused? (CT, X-rays, U/S, la bs)? Why? @ -none What meds were considered but not given or refused? Why? @ -none Did you discuss the management of the patient with other professionals (professionals i.e. NICOLE Balbuena, ASSOCIATE PROFESSOR OF GEOGRAPHY, lab, RT, psych nurse, public health social worker, video production specialist, teacher, radiation safety officer, case advocate)? Give summary @ -no Was smoking cessation discussed for >3mins.? @ -no Was critical care preformed (if so, how long)? @ -yes31 Were there social determinants of health that impacted care today? How? (Homelessness, low income, unemployed, alcoholism, drug addiction, transportation, low edu. Level, literacy, decrease access to med. care, residential, rehab)? @ -none Was there de-escalation of care discussed even if they declined (Discuss DNR or withdrawal of care, Hospice)? DNR status @ -no What co-morbidities impacted this encounter? (DM, HTN, Smoking, COPD, CAD, Cancer, CVA, ARF, Chemo, Hep., AIDS, mental health diagnosis, sleep apnea, morbid obesity)? @ -none Was patient admitted / discharged? Hospital course, mention meds given and route, prescriptions, significant lab abnormalities, going to OR and other pertinent info. @ - 72 male to the emergency department for evaluation of significant cancer history with multiple areas of cancer metastasis. Including brain. In significant distress or shortness of breath, Patient also has significant lung effusion causing shortness of breath with increased ability lately secondary to shortness of breath and decreased activity level Admitted Undiagnosed new problem with uncertain prognosis? @ -no Drug Therapy requiring intensive monitoring for toxicity (Heparin, Nitro, Insulin, Cardizem)? @ -no Were any procedures done? @ -no Diagnosis/symptom? @ -Significant metastatic disease rest for a stress pleural effusion A. fib with RVR Acute, or Chronic, or Acute on Chronic? @ -Acute Uncomplicated (without systemic symptoms) or Complicated (systemic symptoms)? @ -Complicated Side effects of treatment? @ -no Exacerbation, Progression, or Severe Exacerbation? @ -exacerbation Poses a threat to life or bodily function? How? (Chest pain, [place], [place], pneumonia, PE, COPD, DKA, ARF, appy, cholecystitis, CVA, Diverticulitis, Homicidal, Suicidal, threat to staff... and all critical care pts) @ -yes significant metastatic disease Reevaluation #5: 07/24/23 15:41 Differential Dyspnea: Coronary syndrome, arrhythmia, tamponade, asthma, COPD, pulmonary embolism, pneumonia, pneumothorax, pulmonary effusion, anaphylaxis, diabetic ketoacidosis, flailed chest, pulmonary contusion, diaphragmatic rupture, anemia, neuromuscu lar, this is not meant to be an all-inclusive list. - Consultations Consultation #1: Spoke with sound who agrees to admit this patient Medical Decision Making - Medical Decision Making 72 male to the emergency department for evaluation of significant cancer history with multiple areas of cancer metastasis. Including brain. In significant distress or shortness of breath, Patient also has significant lung effusion causing shortness of breath with increased ability lately secondary to shortness of breath and decreased activity level - Lab Data Result diagrams: 07/26/23 08:29 07/26/23 08:29 Lab Results 07/24/23 07/24/23 07/24/23 Range/Units 14:10 14:10 15:13 WBC 11.9 H (3.8-10.6) k/uL RBC 4.57 (4.30-5.90) m/uL Hgb 12.5 L (13.0-17.5) gm/dL Hct 38.8 L (39.0-53.0) % MCV 84.8 (80.0-100.0) fL MCH 27.2 (25.0-35.0) pg MCHC 32.1 (31.0-37.0) g/dL RDW 16.0 H (11.5-15.5) % Plt Count 277 (150-450) k/uL MPV 8.3 Neutrophils % 92 % Lymphocytes % 3 % Monocytes % 4 % Eosinophils % 0 % Basophils % 0 % Neutrophils # 11.0 H (1.3-7.7) k/uL Lymphocytes # 0.3 L (1.0-4.8) k/uL Monocytes # 0.4 (0-1.0) k/uL Eosinophils # 0.1 (0-0.7) k/uL Basophils # 0.0 (0-0.2) k/uL Hypochromasia Slight PT (10.0-12.5) sec INR (<1.2) APTT (22.0-30.0) sec Sodium (137-145) mmol/L Potassium (3.5-5.1) mmol/L Chloride (98-107) mmol/L Carbon Dioxide (22-30) mmol/L Anion Gap mmol/L BUN (9-20) mg/dL Creatinine (0.66-1.25) mg/dL Est GFR (CKD-EPI)AfAm (>60 ml/min/1.73 sqM) Est GFR (CKD-EPI)NonAf (>60 ml/min/1.73 sqM) Glucose (74-99) mg/dL Lactic Ac Sepsis Rflx Y Plasma Lactic Acid Remi 2.6 H* (0.7-2.0) mmol/L Calcium (8.4-10.2) mg/dL Magnesium (1.6-2.3) mg/dL Total Bilirubin (0.2-1.3) mg/dL AST (17-59) U/L ALT (4-49) U/L Alkaline Phosphatase (38-126) U/L Troponin I (0.000-0.034) ng/mL NT-Pro-B Natriuret Pep pg/mL Total Protein (6.3-8.2) g/dL Albumin (3.5-5.0) g/dL 07/24/23 07/24/23 07/24/23 Range/Units 15:40 15:40 15:40 WBC (3.8-10.6) k/uL RBC (4.30-5.90) m/uL Hgb (13.0-17.5) gm/dL Hct (39.0-53.0) % MCV (80.0-100.0) fL MCH (25.0-35.0) pg MCHC (31.0-37.0) g/dL RDW (11.5-15.5) % Plt Count (150-450) k/uL MPV Neutrophils % % Lymphocytes % % Monocytes % % Eosinophils % % Basophils % % Neutrophils # (1.3-7.7) k/uL Lymphocytes # (1.0-4.8) k/uL Monocytes # (0-1.0) k/uL Eosinophils # (0-0.7) k/uL Basophils # (0-0.2) k/uL Hypochromasia PT 10.0 (10.0-12.5) sec INR 0.9 (<1.2) APTT 24.3 (22.0-30.0) sec Sodium 133 L (137-145) mmol/L Potassium 4.9 (3.5-5.1) mmol/L Chloride 96 L (98-107) mmol/L Carbon Dioxide 28 (22-30) mmol/L Anion Gap 9 mmol/L BUN 22 H (9-20) mg/dL Creatinine 0.49 L (0.66-1.25) mg/dL Est GFR (CKD-EPI)AfAm >90 (>60 ml/min/1.73 sqM) Est GFR (CKD-EPI)NonAf >90 (>60 ml/min/1.73 sqM) Glucose 186 H (74-99) mg/dL Lactic Ac Sepsis Rflx Plasma Lactic Acid Remi (0.7-2.0) mmol/L Calcium 9.1 (8.4-10.2) mg/dL Magnesium 1.8 (1.6-2.3) mg/dL Total Bilirubin 0.5 (0.2-1.3) mg/dL AST 23 (17-59) U/L ALT 32 (4-49) U/L Alkaline Phosphatase 104 (38-126) U/L Troponin I 0.037 H* (0.000-0.034) ng/mL NT-Pro-B Natriuret Pep 3390 pg/mL Total Protein 5.7 L (6.3-8.2) g/dL Albumin 2.8 L (3.5-5.0) g/dL 07/24/23 Range/Units 17:39 WBC (3.8-10.6) k/uL RBC (4.30-5.90) m/uL Hgb (13.0-17.5) gm/dL Hct (39.0-53.0) % MCV (80.0-100.0) fL MCH (25.0-35.0) pg MCHC (31.0-37.0) g/dL RDW (11.5-15.5) % Plt Count (150-450) k/uL MPV Neutrophils % % Lymphocytes % % Monocytes % % Eosinophils % % Basophils % % Neutrophils # (1.3-7.7) k/uL Lymphocytes # (1.0-4.8) k/uL Monocytes # (0-1.0) k/uL Eosinophils # (0-0.7) k/uL Basophils # (0-0.2) k/uL Hypochromasia PT (10.0-12.5) sec INR (<1.2) APTT (22.0-30.0) sec Sodium (137-145) mmol/L Potassium (3.5-5.1) mmol/L Chloride (98-107) mmol/L Carbon Dioxide (22-30) mmol/L Anion Gap mmol/L BUN (9-20) mg/dL Creatinine (0.66-1.25) mg/dL Est GFR (CKD-EPI)AfAm (>60 ml/min/1.73 sqM) Est GFR (CKD-EPI)NonAf (>60 ml/min/1.73 sqM) Glucose (74-99) mg/dL Lactic Ac Sepsis Rflx Plasma Lactic Acid Remi 1.7 (0.7-2.0) mmol/L Calcium (8.4-10.2) mg/dL Magnesium (1.6-2.3) mg/dL Total Bilirubin (0.2-1.3) mg/dL AST (17-59) U/L ALT (4-49) U/L Alkaline Phosphatase (38-126) U/L Troponin I (0.000-0.034) ng/mL NT-Pro-B Natriuret Pep pg/mL Total Protein (6.3-8.2) g/dL Albumin (3.5-5.0) g/dL - EKG Data -: EKG Interpreted by Me (EKG is sinus tachycardia 100 by mouth 160 QRS 17 QTc 380) - Radiology Data Radiology results: report reviewed (X-rays positive for significant pleural effusion, loculated), image reviewed Critical Care Time Critical Care Time: Yes Total Critical Care Time: 31 Disposition Clinical Impression: Shortness of breath, Hypoxia, Pleural effusion, Dehydration, Atrial fibrillation with RVR, Lung cancer, Metastatic cancer, Colon cancer, Acute r espiratory insufficiency, Metastasis to brain, Pleural effusion, right, Tachycardia Disposition: ADMITTED IP TO THIS HOSP Condition: Serious Is patient prescribed a controlled substance at d/c from ED?: No Time of Disposition: 17:00
--- NOTE | 2023-07-24 14:33 | XR ---
EXAMINATION TYPE: XR chest 1V portable DATE OF EXAM: 07/24/2023 2:16 PM CLINICAL INDICATION:Male, 72 years old with history of sob COMPARISON: CT 06/13/2023, chest radiograph 07/07/2023. TECHNIQUE: XR chest 1V portable Frontal view of the chest. FINDINGS: Lungs/Pleura: Masslike opacity in the right lung with loculated pleural effusion. There is left midlu ng pulmonary nodule. Findings similar to CT on 06/13/2023 given differences in technique. There is no evidence of pleural effusion, focal consolidation, or pneumothorax. Pulmonary vascularity: Unremarkable. Heart/mediastinum: Cardiomediastinal silhouette is unremarkable. Musculoskeletal: No acute osseous pathology. Right chest wall [id number] tip in the superior vena cava. IMPRESSION: Masslike airspace opacities in the right lung with nodular density in the left midlung. Findings comp atible with known malignancy/metastatic disease. Right loculated pleural effusion.
[2023-07-24 14:41] LABS: Basophils % (A) 0 %; Eosinophils # (A) 0.1 k/uL (0-0.7); Eosinophils % (A) 0 %; HCT 38.8 % (39.0-53.0); HGB 12.5 gm/dL (13.0-17.5); Hypochromasia Slight; Lymphocytes # (A) 0.3 k/uL (1.0-4.8); Lymphocytes % (A) 3 %; MCH 27.2 pg (25.0-35.0); MCHC 32.1 g/dL (31.0-37.0); MCV 84.8 fL (80.0-100.0); Mean Platelet Volume 8.3; Monocytes # (A) 0.4 k/uL (0-1.0); Monocytes % (A) 4 %; Neutrophils % (A) 92 %; Platelet Count 277 k/uL (150-450); RBC 4.57 m/uL (4.30-5.90); WBC 11.9 k/uL (3.8-10.6)
[2023-07-24 16:07] LABS: INR 0.9 (<1.2); Partial Thromboplastin Time 24.3 sec (22.0-30.0)
[2023-07-24 16:29] LABS: ALT 32 U/L (4-49); African American GFR (CKD) >90 (>60 ml/min/1.73 sqM); Albumin 2.8 g/dL (3.5-5.0); Anion Gap 9 mmol/L; Blood Urea Nitrogen 22 mg/dL (9-20); Calcium 9.1 mg/dL (8.4-10.2); Carbon Dioxide 28 mmol/L (22-30); Chloride 96 mmol/L (98-107); Glucose 186 mg/dL (74-99); Non-African American GFR(CKD) >90 (>60 ml/min/1.73 sqM); Sodium 133 mmol/L (137-145); Total Bilirubin 0.5 mg/dL (0.2-1.3); Total Protein 5.7 g/dL (6.3-8.2)
[2023-07-24 16:33] LABS: AST 23 U/L (17-59); Alkaline Phosphatase 104 U/L (38-126); Magnesium 1.8 mg/dL (1.6-2.3); Potassium 4.9 mmol/L (3.5-5.1)
[2023-07-24 16:38] LABS: NT-Pro-B-Type Natriuretic Pept 3390 pg/mL
[2023-07-24] MEDS ORDERED: NALOXONE 0.4 MG/ML 1 ML VIAL IV PRN (18:07)
[2023-07-24] MEDS ORDERED: ONDANSETRON 4 MG/2 ML VIAL IVP PRN (18:07)
[2023-07-24] MEDS ORDERED: HYDROmorphone 1 MG/ML 1 ML SYRINGE IVP STA (18:07)
[2023-07-24] MEDS ORDERED: MORPHINE SULFATE 4 MG/ML SYRINGE IV PRN (18:07)
[2023-07-24] MEDS: SODIUM CHLORIDE 0.9% 1,000 ML IV SCH (18:28)
[2023-07-24] MEDS ORDERED: HYDROcodone/APAP 10-325MG 1 EACH TAB PO PRN (22:58)
[2023-07-24] MEDS ORDERED: DILTIAZEM 5 MG/ML 5 ML VIAL IVP STA (23:00)
[2023-07-24] MEDS ORDERED: DILTIAZEM 125 MG in SODIUM CHLORIDE 0.9% 100 ML IV SCH (23:00)
[2023-07-24] MEDS ORDERED: HEPARIN SODIUM 1,000 UN/ML (10ML VL) IV ONE (23:01)
[2023-07-24] MEDS ORDERED: HEPARIN SOD,PORK IN 0.45% NACL 25,000 UNIT in 0.45% NACL 1 250ML.BAG IV SCH (23:15)
[2023-07-25 00:08] LABS: Anisocytosis Slight; Basophils % (A) 0 %; Eosinophils # (A) 0.1 k/uL (0-0.7); Eosinophils % (A) 0 %; HCT 37.1 % (39.0-53.0); HGB 11.7 gm/dL (13.0-17.5); Hypochromasia Slight; Lymphocytes # (A) 0.7 k/uL (1.0-4.8); Lymphocytes % (A) 7 %; MCHC 31.4 g/dL (31.0-37.0); MCV 85.9 fL (80.0-100.0); Mean Platelet Volume 7.2; Monocytes # (A) 0.2 k/uL (0-1.0); Monocytes % (A) 2 %; Neutrophils # (A) 9.7 k/uL (1.3-7.7); Neutrophils % (A) 90 %; Platelet Count 259 k/uL (150-450); RBC 4.32 m/uL (4.30-5.90); RDW 16.2 % (11.5-15.5); WBC 10.8 k/uL (3.8-10.6)
[2023-07-25 00:19] LABS: Partial Thromboplastin Time 55.1 sec (22.0-30.0); Prothrombin Time 10.8 sec (10.0-12.5)
[2023-07-25] MEDS: MORPHINE SULFATE ER 30 MG TABLET PO SCH ×3 (00:21→22:04)
[2023-07-25] MEDS: MONTELUKAST 10 MG TAB PO SCH ×2 (00:24→21:22)
[2023-07-25] MEDS: TAMSULOSIN 0.4 MG CAP.ER.24H PO SCH ×2 (00:24→21:22)
[2023-07-25] MEDS: PREGABALIN 75 MG CAP PO SCH ×3 (00:24→22:04)
[2023-07-25] MEDS: DULoxetine HCL 60 MG CAPSULE.DR PO SCH ×2 (00:24→21:22)
[2023-07-25] MEDS: levETIRAcetam 500 MG TAB PO SCH ×3 (00:24→21:22)
[2023-07-25] MEDS: ATORVASTATIN 40 MG TAB PO SCH ×2 (00:24→21:22)
[2023-07-25] MEDS: PANTOPRAZOLE 40 MG TABLET PO SCH ×2 (00:24→21:22)
[2023-07-25 01:29] LABS: Glucose,Whole Blood 113 mg/dL (70-110)
--- NOTE | 2023-07-25 04:15 | P.HPIM ---
History of Present Illness H&P Date: 07/24/23 Chief Complaint: shortness of breath 72 year old male with colon cancer with mets to liver and brain , recurrent right sided pleural effusion patient recently discharged from hospital on 07/10/2023 where he was treated for right sided weakness, CT of the brain showed enlarging left parietal occipital mass with vasogenic edema , no acute intracranial hemorrhage. patient did receive one time dose radiation for his brain mets earlier in Jun 2023. he was treated with decadrone during his most recent hospital stay , echocardiogram showed preserved LVEF, MRI brain no acute CVA, redemonstrated left sided mass with vasogenic edema. EEG did not show epileptiform discharges , he continues to be on keppra , patient was discharged home with hospice. he returns today with 3 days of progressive SOB , with wheezing , and generalized weakness. today he could not breath at all and decided to come in for evaluation , he suspects that his pleural effusion has came back as it felt similar to before. denies any fever, chills, nausea , vomiting, bleeding , chest pain , sore throat, known sick contacts. denies any leg edema or orthopnea CXR did show known metastatic disease in the lungs , along with right loculated pleural effusion denies smoking or alcohol , admits to occasional marijuana while in the ED , was found to be in afib with RVR, he was started on cardizem bolus and drip and heparin drip , patient does recall history of afib in the past review of systems Pertinent positives as noted in HPI. All other systems were reviewed and are negative on exam Constitutional: No acute distress, conversant Eyes: Anicteric sclerae, moist conjunctiva, Pupils equal round reactive to light ENMT: NC/AT Oropharynx clear, no erythema, or exudates Neck: Supple, no masses, or JVD No carotid bruits No thyromegaly Lungs: diffuse rhonci , and expiratory wheezing , Clear to percussion Normal respiratory effort, no accessory muscle use Cardiovascular: Heart regular in rate and rhythm, No murmurs, gallops, or rubs No peripheral edema Abdominal: Soft Nontender, no guarding, rebound or rigidity Abdomen moving with respiration Normoactive bowel sounds No hepatomegaly, No splenomegaly No palpable mass Extremities: No digital cyanosis No clubbing Pedal pulses intact and symmetrical Radial pulses intact and symmetrical No calf tenderness Psychiatric: Alert and oriented to person, place and time Neuro Muscles Strength 3-4/5 in all 4 extremities Sensation to light touch grossly present throughout Cranial nerves II-XII grossly intact Past Medical History Past Medical History: Cancer, COPD, CVA/TIA, GERD/Reflux, Hypertension Additional Past Medical History / Comment(s): S4 colon cancer, lung cancer, bladder cancer, brain cancer History of Any Multi-Drug Resistant Organisms: None Reported Past Surgical History: Bowel Resection, Joint Replacement, Orthopedic Surgery Past Anesthesia/Blood Transfusion Reactions: No Reported Reaction Past Psychological History: No Psychological Hx Reported Smoking Status: Former smoker Past Alcohol Use History: None Reported Past Drug Use History: Marijuana Medications and Allergies Home Medications Medication Instructions Recorded Confirmed Type Atorvastatin [Lipitor] 40 mg PO HS 06/12/23 07/24/23 History Cholecalciferol [Vitamin D3 (25 25 mcg PO DAILY 06/12/23 07/24/23 History Mcg = 1000 Iu)] Cyanocobalamin (Vitamin B-12) 1,000 mcg PO DAILY 06/12/23 07/24/23 History [Vitamin B-12] DULoxetine HCL [Cymbalta] 60 mg PO HS 06/12/23 07/24/23 History HYDROcodone/APAP 10-325MG [[place] 1 tab PO Q6H PRN 06/12/23 07/24/23 History 10-325] Ipratropium-Albuterol Nebulize 3 ml INHALATION RT-TID 06/12/23 07/24/23 History [Duoneb 0.5 mg-3 mg/3 ml Soln] Montelukast [Singulair] 10 mg PO HS 06/12/23 07/24/23 History Morphine Sulfate ER [Ms Contin] 30 mg PO BID 06/12/23 07/24/23 History [place]-3 Fatty Acids [[place]-3] 4,000 mg PO DAILY 06/12/23 07/24/23 History Pantoprazole [Protonix] 40 mg PO HS 06/12/23 07/24/23 History Pregabalin [Lyrica] 75 mg PO BID 06/12/23 07/24/23 History Prochlorperazine [Compazine] 10 mg PO Q6H PRN 06/12/23 07/24/23 History Tamsulosin [Flomax] 0.4 mg PO HS 06/12/23 07/24/23 History Albuterol Sulfate [Ventolin HFA] 1 - 2 puff INHALATION RT-Q4H PRN 07/06/23 1 History guaiFENesin [Mucinex] 1,200 mg PO BID 07/06/23 07/24/23 History polyethylene glycoL 3350 [Miralax] 17 gm PO DAILY 07/06/23 07/24/23 History levETIRAcetam [Keppra] 500 mg PO Q12HR #60 tab 07/10/23 07/24/23 Rx Garlic 1,000 mg PO DAILY 07/24/23 07/24/23 History dexAMETHasone ORAL [Hexadrol] See Taper PO QID 07/24/23 07/24/23 History Allergies Allergy/AdvReac Type Severity Reaction Status Date / Time alprazolam [From Xanax] Allergy Unknown Verified 07/24/23 17:32 scopolamine Allergy Unknown Verified 07/24/23 17:32 metoprolol [From Toprol XL] AdvReac Dizziness Verified 07/24/23 17:32 Physical Exam Vitals: Vital Signs Temp Pulse Resp BP Pulse Ox 07/24/23 20:05 93 20 113/74 96 07/24/23 18:01 98.1 F 134 H 20 97/72 95 07/24/23 14:40 110 H 07/24/23 14:24 110 H 07/24/23 13:49 98.0 F 102 H 24 126/104 93 L Intake and Output 07/24/23 07/24/23 07/24/23 06:59 14:59 22:59 Other: Weight 106.594 kg Results CBC & Chem 7: 07/24/23 23:54 07/24/23 15:40 Labs: Abnormal Lab Results - Last 24 Hours (Table) 07/24/23 07/24/23 07/24/23 Range/Units 14:10 14:10 15:40 WBC 11.9 H (3.8-10.6) k/uL Hgb 12.5 L (13.0-17.5) gm/dL Hct 38.8 L (39.0-53.0) % RDW 16.0 H (11.5-15.5) % Neutrophils # 11.0 H (1.3-7.7) k/uL Lymphocytes # 0.3 L (1.0-4.8) k/uL Sodium 133 L (137-145) mmol/L Chloride 96 L (98-107) mmol/L BUN 22 H (9-20) mg/dL Creatinine 0.49 L (0.66-1.25) mg/dL Glucose 186 H (74-99) mg/dL Plasma Lactic Acid Remi 2.6 H* (0.7-2.0) mmol/L Troponin I (0.000-0.034) ng/mL Total Protein 5.7 L (6.3-8.2) g/dL Albumin 2.8 L (3.5-5.0) g/dL 07/24/23 Range/Units 15:40 WBC (3.8-10.6) k/uL Hgb (13.0-17.5) gm/dL Hct (39.0-53.0) % RDW (11.5-15.5) % Neutrophils # (1.3-7.7) k/uL Lymphocytes # (1.0-4.8) k/uL Sodium (137-145) mmol/L Chloride (98-107) mmol/L BUN (9-20) mg/dL Creatinine (0.66-1.25) mg/dL Glucose (74-99) mg/dL Plasma Lactic Acid Remi (0.7-2.0) mmol/L Troponin I 0.037 H* (0.000-0.034) ng/mL Total Protein (6.3-8.2) g/dL Albumin (3.5-5.0) g/dL Assessment and Plan Assessment: 72 year old male with stage 4 colon cancer mets to liver , brain , lungs on home hospice. coming in for difficulty breathing, he is known to have recurrent pleural effusion , i discussed the case with eD doc and I accepted the admission for difficulty breathing with recurrent pleural effusion with anticipated length of stay < 2 midnights stage 4 colon cancer with mets to liver, lung and brain home hospice difficulty breathing with recurrent right pleural effusion supplemental oxygen as needed pulmonary consult for thoracentesis resume inhalers duonebs PRN q2 hr for SOB resume home singulair brain mets , with suspected seizure like activity continue decadrone 4mg po qid continue keppra 500 mg po bid afib with RVR heparin drip cardizem drip , discontinued, patient flipped back to sinus rhythm , however he continues to have brief episodes of afib with RVR throughout the night cardiology eval trops slightly elevated, possibly demand ischemia type II secondary to afib with RVR blood work showed Hgb 12.5 WBC 11.9 Na 133, BUN 22 cr 0.49 K 4.9 GI PPX protonix 40 mg qhs code status full code (patient was on home hospice , but now requesting full code) DVT PPX on heparin gtt for P. afib with RVR
[2023-07-25 08:01] LABS: Anisocytosis Slight; Basophils % (A) 0 %; Eosinophils % (A) 0 %; HCT 35.9 % (39.0-53.0); HGB 11.4 gm/dL (13.0-17.5); Hypochromasia Slight; Lymphocytes % (A) 10 %; MCHC 31.7 g/dL (31.0-37.0); MCV 85.1 fL (80.0-100.0); Mean Platelet Volume 7.3; Monocytes # (A) 0.3 k/uL (0-1.0); Monocytes % (A) 3 %; Neutrophils # (A) 8.4 k/uL (1.3-7.7); Neutrophils % (A) 85 %; Platelet Count 274 k/uL (150-450); RBC 4.22 m/uL (4.30-5.90); RDW 16.2 % (11.5-15.5); WBC 9.8 k/uL (3.8-10.6)
[2023-07-25 08:36] LABS: INR 0.9 (<1.2); Partial Thromboplastin Time 26.8 sec (22.0-30.0); Prothrombin Time 10.2 sec (10.0-12.5)
[2023-07-25] MEDS: HEPARIN SODIUM 1,000 UN/ML (10ML VL) IV PRN ×2 (08:59→16:30)
[2023-07-25] MEDS ORDERED: dexAMETHasone 4 MG TAB PO SCH (09:00)
[2023-07-25 09:34] LABS: African American GFR (CKD) >90 (>60 ml/min/1.73 sqM); Anion Gap 8 mmol/L; Blood Urea Nitrogen 22 mg/dL (9-20); Calcium 8.8 mg/dL (8.4-10.2); Carbon Dioxide 27 mmol/L (22-30); Chloride 97 mmol/L (98-107); Glucose 86 mg/dL (74-99); Non-African American GFR(CKD) >90 (>60 ml/min/1.73 sqM); Potassium 4.2 mmol/L (3.5-5.1); Sodium 132 mmol/L (137-145)
[2023-07-25] MEDS: IPRATROPIUM-ALBUTEROL 3 ML NEB INHALATION PRN ×2 (09:43→18:17)
--- NOTE | 2023-07-25 11:45 | P.PN ---
Subjective Progress Note Date: 07/25/23 Patient is a 72-year-old male with stage IV metastatic colon cancer with known metastases to liver, lung, and brain with recurrent right-sided pleural effusions. Patient is well known to our group with 4 hospitalizations in the last 2 months. On arrival to the ER here he was tachycardic and noted to be in A. fib with rapid ventricular response. Chest x-ray shows minimal right sided pleural effusion with progressive right-sided masses. Laboratory analysis was remarkable for white blood cell count 10.8, hemoglobin 11.7, sodium 133, troponin 0.037 and BNP 3390. He was started on a Cardizem and heparin drip. Overnight his Cardizem drip was discontinued as he converted to normal sinus rhythm. He was maintained on a heparin drip. Patient seen and examined at bedside. He reports that he has had worsening shortness of breath, and has been feeling more fatigued. Apparently his home physical therapist came out and noted him to be tachycardic and hypotensive and then referred him to the hospital. Per nursing he did report a history of hallucinations at home, and was actively hallucinating this morning. Significant other at bedside denies any history of hallucinations. She reports that he is taking his decadron 3 times daily. He does report a remote history of atrial fibrillation that has been hospitalized at [facility]. He does not follow with a c ardiologist on a chronic basis. Discussed with nursing. Patient has been in and out of atrial fibrillation throughout the evening. Currently telemetry reviewed and patient was in normal sinus rhythm at the time of my evaluation. Vital signs reviewed General: Appearing, moderate distress, appears at stated age Cardiovascular: S1S2 reg, no murmur, positive posterior tibial pulse bilateral, Lungs: Course bs bilateral, no rhonchi, no rales , no accessory muscle use Abdominal: soft, nontender to palpation, no guarding, no appreciable organomegaly Ext: no gross muscle atrophy, no edema b/l lower extremities, no contractures Neuro: CN II-XI grossly intact, moving all 4 extremities independently Psych: Lethargic, blunted affect, oriented Assessment/Plan: Colon cancer, Stage IV with mets to liver, lung, and brain Recurrent right sided pleural effusion Brain mets with surrounding vasogenic edema last admission and right sided weakness A fib with RVR Hallucinations Type II NSTEMI due to demand iscemia from A fib Chronic pain related to malignancy - check CT head given known brain met and heparin gtt - tele - off cardizem, continue heparin gtt - await cardio recs - check echo - Decadron 4 mg TID, Keppra 500 mg BID - case discussed with Dr. Jones, will consider drainage of effusion after CTA chest preformed to rule out pulmonary embolism -Continue with morphine sulfate 30 mg twice daily, [place] 10/325 one tablet every 4 hours as needed for breakthrough pain Chronic: COPD prior CVA GERD HTN I did discuss with patient and S/O at bedside that I believe that his SOB adn tachycardia is medicated more by deconditioning form his progressive cancer than from his recurrent effusion. Imaging: X-rays reviewed by myself reveals a right-sided pleural effusion that appears decreased compared to prior with known right-sided pulmonary masses Data Review: Atrophy from today include CBC and basic metabolic profile which are remarkable for hemoglobin 11.4, sodium 132, glucose 113. Troponin has normalized at 0.020 DVT prophylaxis: Heparin drip Prognosis: Poor Anticipated discharge date: pending clinical course Anticipated discharge place: pending clinical course This dictation was prepared using [employer] voice recognition software. Though every attempt is made to correct errors during dictation some may still exist. Objective - Vital Signs Vital signs: Vital Signs Temp 99.0 F 07/25/23 08:36 Pulse 106 H 07/25/23 09:53 Resp 24 07/25/23 08:36 BP 121/74 07/25/23 08:36 Pulse Ox 92 L 07/25/23 09:45 FiO2 Intake & Output 07/24/23 07/25/23 07/25/23 18:59 06:59 18:59 Intake Total 540 95.5 Output Total 150 Balance 390 95.5 Weight 106.594 kg 107.7 kg Intake: Intake, IV Titration 95.5 Amount Heparin Sod,Pork in 0.45% 95.5 NaCl 25,000 unit In 0.45 % NaCl 1 250ml.bag @ 9. 3814 UNITS/KG/HR 10 mls/ hr IV .Q24H [facility] Rx#: [id number] Oral 540 Output: Urine 150 Other: Voiding Method Urinal Urinal - Labs CBC & Chem 7: 07/25/23 07:34 07/25/23 09:08 Labs: Abnormal Lab Results - Last 24 Hours (Table) 07/24/23 07/24/23 07/24/23 Range/Units 14:10 14:10 15:40 WBC 11.9 H (3.8-10.6) k/uL RBC (4.30-5.90) m/uL Hgb 12.5 L (13.0-17.5) gm/dL Hct 38.8 L (39.0-53.0) % RDW 16.0 H (11.5-15.5) % Neutrophils # 11.0 H (1.3-7.7) k/uL Lymphocytes # 0.3 L (1.0-4.8) k/uL APTT (22.0-30.0) sec Sodium 133 L (137-145) mmol/L Chloride 96 L (98-107) mmol/L BUN 22 H (9-20) mg/dL Creatinine 0.49 L (0.66-1.25) mg/dL Glucose 186 H (74-99) mg/dL POC Glucose (mg/dL) (70-110) mg/dL Plasma Lactic Acid Remi 2.6 H* (0.7-2.0) mmol/L Troponin I (0.000-0.034) ng/mL Total Protein 5.7 L (6.3-8.2) g/dL Albumin 2.8 L (3.5-5.0) g/dL 07/24/23 07/24/23 07/24/23 Range/Units 15:40 23:54 23:54 WBC 10.8 H (3.8-10.6) k/uL RBC (4.30-5.90) m/uL Hgb 11.7 L (13.0-17.5) gm/dL Hct 37.1 L (39.0-53.0) % RDW 16.2 H (11.5-15.5) % Neutrophils # 9.7 H (1.3-7.7) k/uL Lymphocytes # 0.7 L (1.0-4.8) k/uL APTT 55.1 H (22.0-30.0) sec Sodium (137-145) mmol/L Chloride (98-107) mmol/L BUN (9-20) mg/dL Creatinine (0.66-1.25) mg/dL Glucose (74-99) mg/dL POC Glucose (mg/dL) (70-110) mg/dL Plasma Lactic Acid Remi (0.7-2.0) mmol/L Troponin I 0.037 H* (0.000-0.034) ng/mL Total Protein (6.3-8.2) g/dL Albumin (3.5-5.0) g/dL 07/25/23 07/25/23 07/25/23 Range/Units 01:26 07:34 09:08 WBC (3.8-10.6) k/uL RBC 4.22 L (4.30-5.90) m/uL Hgb 11.4 L (13.0-17.5) gm/dL Hct 35.9 L (39.0-53.0) % RDW 16.2 H (11.5-15.5) % Neutrophils # 8.4 H (1.3-7.7) k/uL Lymphocytes # (1.0-4.8) k/uL APTT (22.0-30.0) sec Sodium 132 L (137-145) mmol/L Chloride 97 L (98-107) mmol/L BUN 22 H (9-20) mg/dL Creatinine 0.53 L (0.66-1.25) mg/dL Glucose (74-99) mg/dL POC Glucose (mg/dL) 113 H (70-110) mg/dL Plasma Lactic Acid Remi (0.7-2.0) mmol/L Troponin I (0.000-0.034) ng/mL Total Protein (6.3-8.2) g/dL Albumin (3.5-5.0) g/dL
--- NOTE | 2023-07-25 12:14 | P.CNPUL ---
History of Present Illness Consult date: 07/25/23 Reason for consult: dyspnea, pleural effusion History of present illness: This is a 72-year-old male patient who is coming in the hospital because of worsening shortness of breath. The patient is known to me from previous admissions. The patient is known to have metastatic colon cancer. The patient has history of colon cancer with metastases to his lungs. This was diagnosed proximally 6 years ago and over the years, the patient has been treated for an oncologist out of [facility] regarding his colon cancer. He has utilized various treatments including FOLFOX and 5-FU over the years and his disease has a progressively getting worse. Recently, he was being contemplated for a clinical trial and he did not go to the clinical trial at this was a phase I trial. The patient has had serial PET scans and CAT scans over the years most of them have been done at [facility]. For instance, his most recent PET/CT that was done on 03/21/2023 showed multiple increasing bilateral lung masses with increasing SUV compatible with worsening neoplastic process. The patient had various lung masses largest being in the right lower lobe posterior segment. At that time, he had no significant pleural effusion. The PET scan of the thorax showed intense uptake within the right suprahilar lesion with an SUV of 4.7. Increase uptake in the periphery of the right upper lobe with an SUV of 3.5. There was also a right infrahilar mass with SUV of 3.9. Intense activity in the periphery of the right lung measuring 7.5 SUV and intense metabolic activity in the lung mass in the left midlung with an SUV of 4.4. Another mass in the posterior right lower lobe with an SUV of 6.4. He has not been receiving any treatment for now. Furthermore, a CAT scan of the abdomen that was done on 04/27/2023 demonstrated again some mild left-sided hydronephrosis with a obstructing 1 cm Within the proximal left ureter. There was nonobstructive bilateral renal stones. There is development of a right- sided pleural effusion that has increased in size in addition to a various masses in the lung bases bilaterally as mentioned above. No evidence of any disease involving the abdomen. There was evidence of [facility]ole[facility]ithiasis[facility] of [facility], resected surgically. During an earlier hospitalization, was able to drain the patient's right lung and the fluid was an exudate with a negative cytology. During his subsequent follow-up admission, the patient had a ultrasound of the chest that showed an 11 cm pocket of fluid in the right lung. At that time, the patient did not have any further drainage. Chest x-ray from today showing a large right lower lobe mass in the right lower lung is hazy probably related to some residual pleural fluid. The patient is also having issues with atrial fibrillation fibrillation and the patient's current on IV heparin. No altered mentation. He remains on 2 L of oxygen by nasal cannula. Support is at 0.02. The white cell cause of 9.8 with a hemoglobin of 11.4. Normal coagulation profile. Review of Systems CONSTITUTIONAL: Denies any recent significant weight loss or weight gain. EYES: Denies change in vision. EARS, NOSE, MOUTH, THROAT: Denies headaches, denies sore throat. CARDIOVASCULAR: Denies chest pain, palpitations or syncopal episodes. RESPIRATORY: See HPI. GASTROINTESTINAL: Denies change in appetite, nausea and vomiting, diarrhea, constipation. Admits to mild abdominal discomfort, and not different from baseline. GENITOURINARY: Denies hematuria, denies infections. MUSKULOSKELETAL: Denies pain, denies swelling. INTEGUMENTARY: Denies rash, denies eczema. NEUROLOGICAL: Denies recent memory loss, no recent seizure activity. Reports right-sided weakness and fall PSYCHIATRIC: Denies anxiety, denies depression. HEMATOLOGIC/LYMPHATIC: Denies anemia, denies enlarged lymph node Past Medical History Past Medical History: Cancer, COPD, CVA/TIA, GERD/Reflux, Hypertension Additional Past Medical History / Comment(s): S4 colon cancer, lung cancer, bladder cancer, brain cancer History of Any Multi-Drug Resistant Organisms: None Reported Past Surgical History: Bowel Resection, Joint Replacement, Orthopedic Surgery Past Anesthesia/Blood Transfusion Reactions: No Reported Reaction Past Psychological History: No Psychological Hx Reported Smoking Status: Former smoker Past Alcohol Use History: None Reported Past Drug Use History: Marijuana Medications and Allergies Home Medications Medication Instructions Recorded Confirmed Type Atorvastatin [Lipitor] 40 mg PO HS 06/12/23 07/24/23 History Cholecalciferol [Vitamin D3 (25 25 mcg PO DAILY 06/12/23 07/24/23 History Mcg = 1000 Iu)] Cyanocobalamin (Vitamin B-12) 1,000 mcg PO DAILY 06/12/23 07/24/23 History [Vitamin B-12] DULoxetine HCL [Cymbalta] 60 mg PO HS 06/12/23 07/24/23 History HYDROcodone/APAP 10-325MG [[place] 1 tab PO Q6H PRN 06/12/23 07/24/23 History 10-325] Ipratropium-Albuterol Nebulize 3 ml INHALATION RT-TID 06/12/23 07/24/23 History [Duoneb 0.5 mg-3 mg/3 ml Soln] Montelukast [Singulair] 10 mg PO HS 06/12/23 07/24/23 History Morphine Sulfate ER [Ms Contin] 30 mg PO BID 06/12/23 07/24/23 History [place]-3 Fatty Acids [[place]-3] 4,000 mg PO DAILY 06/12/23 07/24/23 History Pantoprazole [Protonix] 40 mg PO HS 06/12/23 07/24/23 History Pregabalin [Lyrica] 75 mg PO BID 06/12/23 07/24/23 History Prochlorperazine [Compazine] 10 mg PO Q6H PRN 06/12/23 07/24/23 History Tamsulosin [Flomax] 0.4 mg PO HS 06/12/23 07/24/23 History Albuterol Sulfate [Ventolin HFA] 1 - 2 puff INHALATION RT-Q4H PRN 07/06/23 07/24/23 History guaiFENesin [Mucinex] 1,200 mg PO BID 07/06/23 07/24/23 History polyethylene glycoL 3350 [Miralax] 17 gm PO DAILY 07/06/23 07/24/23 History levETIRAcetam [Keppra] 500 mg PO Q12HR #60 tab 07/10/23 07/24/23 Rx Garlic 1,000 mg PO DAILY 07/24/23 07/24/23 History dexAMETHasone ORAL [Hexadrol] See Taper PO QID 07/24/23 07/24/23 History Allergies Allergy/AdvReac Type Severity Reaction Status Date / Time alprazolam [From Xanax] Allergy Unknown Verified 07/24/23 17:32 scopolamine Allergy Unknown Verified 07/24/23 17:32 metoprolol [From Toprol XL] AdvReac Dizziness Verified 07/24/23 17:32 Physical Exam Vitals: Vital Signs Temp Pulse Pulse Resp BP BP Pulse Ox 07/25/23 09:53 106 H 07/25/23 09:45 92 L 07/25/23 09:43 102 H 07/25/23 08:36 99.0 F 98 24 121/74 93 L 07/25/23 03:25 98 F 89 22 137/86 93 L 07/25/23 01:13 98.6 F 94 22 121/85 92 L 07/25/23 00:45 98.5 F 90 20 133/82 94 L 07/25/23 00:00 86 13 07/24/23 23:55 87 14 07/24/23 23:50 86 14 07/24/23 23:45 91 16 07/24/23 23:40 92 14 07/24/23 23:35 95 12 07/24/23 23:30 95 15 07/24/23 23:25 152 H 17 07/24/23 23:20 140 H 18 07/24/23 23:15 144 H 14 07/24/23 23:00 134 H 20 114/72 96 07/24/23 22:00 93 19 101/77 93 L 07/24/23 20:05 93 20 113/74 96 07/24/23 18:01 98.1 F 134 H 20 97/72 95 07/24/23 14:40 110 H 07/24/23 14:24 110 H 07/24/23 13:49 98.0 F 102 H 24 126/104 93 L Intake and Output 07/24/23 07/25/23 07/25/23 22:59 06:59 14:59 Intake Total 540 95.5 Output Total 150 Balance 390 95.5 Intake: Intake, IV Titration 95.5 Amount Heparin Sod,Pork in 0.45% 95.5 NaCl 25,000 unit In 0.45 % NaCl 1 250ml.bag @ 9. 3814 UNITS/KG/HR 10 mls/ hr IV .Q24H [facility] Rx#: [id number] Oral 540 Output: Urine 150 Other: Voiding Method Urinal Urinal Weight 107.7 kg GENERAL EXAM: 72-year-old white male in no distress, on 2 L nasal cannula and O2 sats is 97% HEAD: Normocephalic and atraumatic EENT: PERRLA, EOMI, nonicteric, no neck masses no JVD, no stridor. CHEST: No chest wall deformity. LUNGS: Slightly diminished breath sounds at the right base to crackles or rhonchi or wheezes CVS: S1 and S2 normal with no audible murmur, regular rhythm. No extra heart sounds ABDOMEN: Obese soft nontender no megaly no rebound SKIN: No rashes Psychiatric: Normal mood affect and normal mental status examination. Extremities: No clubbing edema or cyanosis CENTRAL NERVOUS SYSTEM: Alert and oriented 3, minimal right-sided weakness noted. Results - Laboratory Findings CBC and BMP: 07/25/23 07:34 07/25/23 09:08 PT/INR, D-dimer PT 10.2 sec (10.0-12.5) 07/25/23 07:34 INR 0.9 (<1.2) 07/25/23 07:34 Abnormal lab findings: Abnormal Labs 07/24/23 07/24/23 07/24/23 14:10 14:10 15:40 WBC 11.9 H RBC Hgb 12.5 L Hct 38.8 L RDW 16.0 H Neutrophils # 11.0 H Lymphocytes # 0.3 L APTT Sodium 133 L Chloride 96 L BUN 22 H Creatinine 0.49 L Glucose 186 H POC Glucose (mg/dL) Plasma Lactic Acid Remi 2.6 H* Troponin I Total Protein 5.7 L Albumin 2.8 L 07/24/23 07/24/23 07/24/23 15:40 23:54 23:54 WBC 10.8 H RBC Hgb 11.7 L Hct 37.1 L RDW 16.2 H Neutrophils # 9.7 H Lymphocytes # 0.7 L APTT 55.1 H Sodium Chloride BUN Creatinine Glucose POC Glucose (mg/dL) Plasma Lactic Acid Remi Troponin I 0.037 H* Total Protein Albumin 07/25/23 07/25/23 07/25/23 01:26 07:34 09:08 WBC RBC 4.22 L Hgb 11.4 L Hct 35.9 L RDW 16.2 H Neutrophils # 8.4 H Lymphocytes # APTT Sodium 132 L Chloride 97 L BUN 22 H Creatinine 0.53 L Glucose POC Glucose (mg/dL) 113 H Plasma Lactic Acid Remi Troponin I Total Protein Albumin - Diagnostic Findings Chest x-ray: image reviewed Assessment and Plan Plan: Chronic hypoxic respiratory failure, remains on oxygen at 2 L per minute nasal cannula Shortness of breath, multifactorial. The patient has evidence of lung masses related to pulmonary metastases. The patient also has residual right-sided pleural effusion, 11 cm pocket of fluid was seen and ultrasound of the chest that was done on 07/07/2023. Previous thoracentesis was done on 06/14/2023. The fluid cytology was negative Right-sided pleural effusion, previous thoracentesis on 06/14/2023, fluid was an exudate with a negative cytology. Based on a previous CAT scan of the chest from May 2023 computed tomography scan of the chest will be crucial to evaluate for lung mass/pleural effusion/pulmonary embolism especially with his history of metastatic colon cancer. Obviously, the patient has been progressing over the years and the patient's most recent PET/CT that was done in February 2023 showed progression of his underlying metastatic cancer. Pneumonia is considered to be less likely. Metastatic colon cancer with pulmonary involvement. The patient has enlarging masses bilaterally largest metastases being in the right lower lobe. There is also developed some pleural effusion based on the most recent CAT scan of the abdomen that was done April 2023. He has utilizes various treatments for metastatic colon cancer the patient was being considered for clinical trials. His oncologist out of town. History of bladder cancer post transurethral resection of the bladder cancer History of kidney stone with a previous CAT scan of the abdomen showing some left hydronephrosis. History of nephrolithiasis History of cholelithiasis Hyperlipidemia BPH Previous history of CVA Atrial fibrillation with rapid ventricular response, started on IV heparin and Cardizem drip, current rhythm is sinus echo of the heart from 07/06/2023 showed an ejection fraction that was normal with grade 1 diastolic heart failure Plan Patient is quite debilitated due to his metastatic cancer Management of A. fib Repeat CAT scan of the brain CT of the chest to assess progression of his pulmonary metastases and if pleural effusion. This will be done using the CT angiogram protocol which would also look for pulmonary embolism May proceed with multiple thoracenteses for palliative purposes We'll continue to follow
--- NOTE | 2023-07-25 12:56 | CT ---
EXAMINATION TYPE: CT brain wo con CT DLP: 1238.4 mGycm, Automated exposure control for dose reduction was used. DATE OF EXAM: 07/25/2023 12:44 PM COMPARISON: 07/07/2023 MRI.. CLINICAL INDICATION:Male, 72 years old with history of confusion, on heparin gtt, confusion TECHNIQUE: Brain: Axial CT images of the brain were obtained with coronal and sagittal reformats created and rev iewed. Contrast used: None. Oral contrast used: None. FINDINGS: Brain: Extra-axial spaces: No abnormal extra-axial fluid collections. Ventricular system: Within normal limits Cerebral parenchyma: There is a mass in the posterior aspect of the left frontal lobe/parietal lobe w ith surrounding vasogenic edema measuring 15 x 14 mm.. No acute intraparenchymal hemorrhage or mass e ffect. The forte-white junction is well differentiated. Cerebellum: Unremarkable. Mass effect: No evidence of midline shift. Intracranial vasculature: Atherosclerotic calcifications of the intracranial vessels. Soft tissues: Normal. Calvarium/osseous structures: No depressed skull fracture. Paranasal sinuses and mastoid air cells: Mild scattered paranasal sinus disease. Visualized orbits: Bilaterally aphakia. IMPRESSION: 1. No Evidence for intracranial hemorrhage. 2. Intra-axial mass of the posterior left frontal lobe/parietal region near the forte-white matter ju nction. Surrounding vasogenic edema is also present. Findings not significantly changed from 07/07/20 23 MRI.
--- NOTE | 2023-07-25 13:03 | CT ---
EXAMINATION TYPE: CT angio chest CT DLP: 864.7 mGycm, Automated exposure control for dose reduction was used. DATE OF EXAM: 07/25/2023 12:44 PM COMPARISON: Chest radiograph from 07/24/2023. CLINICAL INDICATION:Male, 72 years old with history of pulmonary embolism; PE TECHNIQUE/CONTRAST: CTA scan of the thorax is performed with IV Contrast, patient injected with 100 ml mL of Isovue 300, MIP images are created and reviewed these are created on a separate workstation.. FINDINGS: Pulmonary Artery: There is no evidence for a filling defect within the pulmonary vasculature to sugge st acute pulmonary embolism. The pulmonary artery is of normal size. Lungs/Pleura: There is are innumerable masses in the right lung including multiple tracking along the pleura. Largest on the right measuring up to 6.1 x 4.7 cm in the right upper lung in the right lower lung measuring up to 6.2 x 5.8 cm. There are multiple left lower lung pulmonary nodules compatible w ith metastatic disease the largest measuring up to 3.7 x 2.4 cm. There is a right pleural effusion wi th multiple areas of pleural thickening the largest in the right lung base posteriorly measuring 4.6 x 2.9 cm. Airway: Large airways are patent. Heart: The heart is mildly enlarged for size. There is moderate coronary artery atherosclerosis. Vasculature: No evidence of aortic aneurysm. Right central venous catheter with tip terminating in th e superior vena cava. Mediastinum: Right left lower lobe paratracheal lymph node measuring 9 mm in short axis. Epicardial f at pulmonary lymph nodes measuring up to 13 mm in short axis. Right perihilar lymph nodes are also pr esent. Musculoskeletal: No acute osseous abnormalities, severe degeneration changes of the spine and shoulde rs. Remote left-sided rib fractures. Soft Tissues: Unremarkable. Lower neck: No significant findings. Upper Abdomen: No significant findings. IMPRESSION: Findings compatible with metastatic disease with innumerable right-sided pulmonary nodules with pleur al thickening and right pleural effusion which is likely malignant. Few scattered mediastinal lymph n odes are present and suspicious for malignancy.
[2023-07-25] MEDS: dexAMETHasone 4 MG TAB PO SCH ×3 (16:30→21:23)
[2023-07-25] MEDS: SODIUM CHLORIDE 0.9% 1,000 ML IV SCH (18:45)
--- NOTE | 2023-07-25 19:57 | P.CRDCN ---
History of Present Illness Consult date: 07/25/23 History of present illness: HISTORY OF PRESENTING ILLNESS 72-year-old male with stage IV metastatic colon cancer known to have metastases to liver and lung and brain with recurrent right-sided pleural effusion. Patient has had 4 hospitalizations last 2 months. This time on admission he was noticed to be in atrial fibrillation with rapid ve ntricular response. His chest x-ray showed minimal right-sided pleural effusion. ECG from pertinent June at 20:35 showed a heart rate of 136 beats a minute and leg rhythm appear to be atrial flutter. Repeat ECG this morning shows sinus rhythm Initial troponin was negative. BUN 22, creatinine 0.5, sodium 132, hemoglobin 11.4. Echo from June 2023 shows EF 55%, mild concentric LVH, grade 1 diastolic dysfunction, and no significant valvular function REVIEW OF SYSTEMS 14 point review of system is negative except what is mentioned above in HPI. PHYSICAL EXAMINATION Vital signs reviewed. Head: Normocephalic. Eyes: Sclerae nonicteric. Neck: Brisk carotid upstroke, no jugular venous distention. Lungs: Crackles and rhonchi audible. Heart: Regular rate and rhythm, S1-S2, no S3, no murmur or rub. Abdomen: Soft nontender, positive bowel sounds . Extremities: No edema, intact distal pulses. ASSESSMENT Paroxysmal atrial fibrillation. Currently in normal sinus rhythm Lung cancer with systemic metastasis Brain metastases with 15 x14 mm with vasogenic edema Metabolic encephalopathy PLAN No need to repeat echocardiogram as we have 1 from recent admission [id number] score 1, due to age. Due to atrial fibrillation patient does not have very high stroke risk but because of systemic metastasis he would be slightly hypercoagulable. He does have brain metastasis with vasogenic surrounding edema. I would say the patient is not the best candidate for systemic anticoagulation. As there is no evidence of PE, I would say discontinue heparin Start metoprolol 25 mg twice a day Continue atorvastatin Past Medical History Past Medical History: Cancer, COPD, CVA/TIA, GERD/Reflux, Hypertension Additional Past Medical History / Comment(s): S4 colon cancer, lung cancer, bladder cancer, brain cancer History of Any Multi-Drug Resistant Organisms: None Reported Past Surgical History: Bowel Resection, Joint Replacement, Orthopedic Surgery Past Anesthesia/Blood Transfusion Reactions: No Reported Reaction Past Psychological History: No Psychological Hx Reported Smoking Status: Former smoker Past Alcohol Use History: None Reported Past Drug Use History: Marijuana Medications and Allergies Home Medications Medication Instructions Recorded Confirmed Type Atorvastatin [Lipitor] 40 mg PO HS 06/12/23 07/24/23 History Cholecalciferol [Vitamin D3 (25 25 mcg PO DAILY 06/12/23 07/24/23 History Mcg = 1000 Iu)] Cyanocobalamin (Vitamin B-12) 1,000 mcg PO DAILY 06/12/23 07/24/23 History [Vitamin B-12] DULoxetine HCL [Cymbalta] 60 mg PO HS 06/12/23 07/24/23 History HYDROcodone/APAP 10-325MG [[place] 1 tab PO Q6H PRN 06/12/23 07/24/23 History 10-325] Ipratropium-Albuterol Nebulize 3 ml INHALATION RT-TID 06/12/23 07/24/23 History [Duoneb 0.5 mg-3 mg/3 ml Soln] Montelukast [Singulair] 10 mg PO HS 06/12/23 07/24/23 History Morphine Sulfate ER [Ms Contin] 30 mg PO BID 06/12/23 07/24/23 History [place]-3 Fatty Acids [[place]-3] 4,000 mg PO DAILY 06/12/23 07/24/23 History Pantoprazole [Protonix] 40 mg PO HS 06/12/23 07/24/23 History Pregabalin [Lyrica] 75 mg PO BID 06/12/23 07/24/23 History Prochlorperazine [Compazine] 10 mg PO Q6H PRN 06/12/23 07/24/23 History Tamsulosin [Flomax] 0.4 mg PO HS 06/12/23 07/24/23 History Albuterol Sulfate [Ventolin HFA] 1 - 2 puff INHALATION RT-Q4H PRN 07/06/23 07/24/23 History guaiFENesin [Mucinex] 1,200 mg PO BID 07/06/23 07/24/23 History polyethylene glycoL 3350 [Miralax] 17 gm PO DAILY 07/06/23 07/24/23 History levETIRAcetam [Keppra] 500 mg PO Q12HR #60 tab 07/10/23 07/24/23 Rx Garlic 1,000 mg PO DAILY 07/24/23 07/24/23 History dexAMETHasone ORAL [Hexadrol] See Taper PO QID 07/24/23 07/24/23 History Allergies Allergy/AdvReac Type Severity Reaction Status Date / Time alprazolam [From Xanax] Allergy Unknown Verified 07/24/23 17:32 scopolamine Allergy Unknown Verified 07/24/23 17:32 metoprolol [From Toprol XL] AdvReac Dizziness Verified 07/24/23 17:32 Physical Exam Vitals: Vital Signs Temp Pulse Pulse Resp BP BP Pulse Ox 07/25/23 18:31 88 07/25/23 18:17 88 07/25/23 16:26 98.0 F 88 22 132/73 94 L 07/25/23 11:54 98.4 F 96 22 116/74 94 L 07/25/23 09:53 106 H 07/25/23 09:45 92 L 07/25/23 09:43 102 H 07/25/23 08:36 99.0 F 98 24 121/74 93 L 07/25/23 03:25 98 F 89 22 137/86 93 L 07/25/23 01:13 98.6 F 94 22 121/85 92 L 07/25/23 00:45 98.5 F 90 20 133/82 94 L 07/25/23 00:00 86 13 07/24/23 23:55 87 14 07/24/23 23:50 86 14 07/24/23 23:45 91 16 07/24/23 23:40 92 14 07/24/23 23:35 95 12 07/24/23 23:30 95 15 07/24/23 23:25 152 H 17 07/24/23 23:20 140 H 18 07/24/23 23:15 144 H 14 07/24/23 23:00 134 H 20 114/72 96 07/24/23 22:00 93 19 101/77 93 L 07/24/23 20:05 93 20 113/74 96 Intake and Output 07/25/23 07/25/23 07/25/23 06:59 14:59 22:59 Intake Total 540 213.5 252.437 Output Total 150 Balance 390 213.5 252.437 Intake: Intake, IV Titration 95.5 134.437 Amount Heparin Sod,Pork in 0.45% 95.5 134.437 NaCl 25,000 unit In 0.45 % NaCl 1 250ml.bag @ 9. 3814 UNITS/KG/HR 10 mls/ hr IV .Q24H [facility] Rx#: [id number] Oral 540 118 118 Output: Urine 150 Other: Voiding Method Urinal Urinal # Voids 2 # Bowel Movements 1 Weight 107.7 kg Results 07/25/23 07:34 07/25/23 09:08 Cardiac Enzymes 07/25/23 Range/Units 09:10 Troponin I 0.020 (0.000-0.034) ng/mL Coagulation 07/24/23 07/25/23 07/25/23 Range/Units 23:54 07:34 14:59 PT 10.8 10.2 (10.0-12.5) sec APTT 55.1 H 26.8 30.2 H (22.0-30.0) sec CBC 07/24/23 07/25/23 Range/Units 23:54 07:34 WBC 10.8 H 9.8 (3.8-10.6) k/uL RBC 4.32 4.22 L (4.30-5.90) m/uL Hgb 11.7 L 11.4 L (13.0-17.5) gm/dL Hct 37.1 L 35.9 L (39.0-53.0) % Plt Count 259 274 (150-450) k/uL Comprehensive Metabolic Panel 07/25/23 Range/Units 09:08 Sodium 132 L (137-145) mmol/L Potassium 4.2 (3.5-5.1) mmol/L Chloride 97 L (98-107) mmol/L Carbon Dioxide 27 (22-30) mmol/L BUN 22 H (9-20) mg/dL Creatinine 0.53 L (0.66-1.25) mg/dL Glucose 86 (74-99) mg/dL Calcium 8.8 (8.4-10.2) mg/dL Current Medications Generic Name Dose Route Start Last Admin Trade Name Freq PRN Reason Stop Dose Admin Hydrocodone Bitart/Acetaminophen 1 each 07/24/23 22:58 07/25/23 11:58 Hydrocodone/Apap 10-325mg 1 Each Tab PO 1 each Q6H PRN Administration Pain Albuterol/Ipratropium 3 ml 07/25/23 03:54 07/25/23 18:17 Ipratropium-Albuterol 3 Ml Neb INHALATION 3 ml RT-Q2H PRN Administration Shortness Of Breath Or Wheezing Atorvastatin Calcium 40 mg 07/24/23 23:00 07/25/23 00:24 Atorvastatin 40 Mg Tab PO 40 mg HS YASIR Administration Dexamethasone 4 mg 07/25/23 16:00 07/25/23 16:30 Dexamethasone 4 Mg Tab PO 4 mg TID YASIR Administration Duloxetine HCl 60 mg 07/24/23 23:00 07/25/23 00:24 Duloxetine Hcl 60 Mg Capsule.Dr PO 60 mg HS YASIR Administration Sodium Chloride 1,000 mls @ 20 mls/hr 07/24/23 18:15 07/25/23 18:45 Saline 0.9% IV Not Given .Q24H YASIR Diltiazem HCl 125 mg/ Sodium 125 mls @ 0 mls/hr 07/24/23 23:00 Chloride IV .Q0M YASIR Protocol Per Protocol Levetiracetam 500 mg 07/24/23 23:00 07/25/23 08:58 Levetiracetam 500 Mg Tab PO 500 mg Q12HR YASIR Administration Montelukast Sodium 10 mg 07/24/23 23:00 07/25/23 00:24 Montelukast 10 Mg Tab PO 10 mg HS YASIR Administration Morphine Sulfate 4 mg 07/24/23 18:07 07/24/23 23:36 Morphine Sulfate 4 Mg/Ml Syringe IV 4 mg Q4HR PRN Administration Severe Pain (Scale 7 to 10) Morphine Sulfate 30 mg 07/24/23 23:00 07/25/23 08:58 Morphine Sulfate Er 30 Mg Tablet PO 30 mg BID YASIR Administration Protocol Naloxone HCl 0.2 mg 07/24/23 18:07 Naloxone 0.4 Mg/Ml 1 Ml Vial IV Q2M PRN Opioid Reversal Ondansetron HCl 4 mg 07/24/23 18:07 Ondansetron 4 Mg/2 Ml Vial IVP Q8HR PRN Nausea And Vomiting Pantoprazole Sodium 40 mg 07/24/23 23:00 07/25/23 00:24 Pantoprazole 40 Mg Tablet PO 40 mg HS YASIR Administration Pregabalin 75 mg 07/24/23 23:00 07/25/23 08:59 Pregabalin 75 Mg Cap PO 75 mg BID YASIR Administration Tamsulosin HCl 0.4 mg 07/24/23 23:00 07/25/23 00:24 Tamsulosin 0.4 Mg Cap.Er.24h PO 0.4 mg HS YASIR Administration Intake and Output 07/25/23 07/25/23 07/25/23 06:59 14:59 22:59 Intake Total 540 213.5 252.437 Output Total 150 Balance 390 213.5 252.437 Intake: Intake, IV Titration 95.5 134.437 Amount Heparin Sod,Pork in 0.45% 95.5 134.437 NaCl 25,000 unit In 0.45 % NaCl 1 250ml.bag @ 9. 3814 UNITS/KG/HR 10 mls/ hr IV .Q24H [facility] Rx#: [id number] Oral 540 118 118 Output: Urine 150 Other: Voiding Method Urinal Urinal # Voids 2 # Bowel Movements 1 Weight 107.7 kg 07/25/23 07:34 07/25/23 09:08
[2023-07-25] MEDS: METOPROLOL TARTRATE 25 MG TAB PO SCH (21:22)
[2023-07-26] MEDS: IPRATROPIUM-ALBUTEROL 3 ML NEB INHALATION PRN ×2 (06:41→10:24)
[2023-07-26 09:04] LABS: Anisocytosis Slight; HCT 40.3 % (39.0-53.0); HGB 12.4 gm/dL (13.0-17.5); Hypochromasia Slight; MCH 26.5 pg (25.0-35.0); MCHC 30.9 g/dL (31.0-37.0); MCV 85.9 fL (80.0-100.0); Mean Platelet Volume 8.3; Platelet Count 308 k/uL (150-450); RBC 4.69 m/uL (4.30-5.90); RDW 16.2 % (11.5-15.5); WBC 9.7 k/uL (3.8-10.6)
[2023-07-26 09:25] LABS: African American GFR (CKD) >90 (>60 ml/min/1.73 sqM); Anion Gap 10 mmol/L; Blood Urea Nitrogen 22 mg/dL (9-20); Calcium 9.2 mg/dL (8.4-10.2); Carbon Dioxide 32 mmol/L (22-30); Chloride 94 mmol/L (98-107); Glucose 141 mg/dL (74-99); Magnesium 2.1 mg/dL (1.6-2.3); Non-African American GFR(CKD) >90 (>60 ml/min/1.73 sqM); Potassium 4.9 mmol/L (3.5-5.1); Sodium 136 mmol/L (137-145)
[2023-07-26] MEDS: PREGABALIN 75 MG CAP PO SCH (10:05)
[2023-07-26] MEDS: METOPROLOL TARTRATE 25 MG TAB PO SCH (10:05)
[2023-07-26] MEDS: MORPHINE SULFATE ER 30 MG TABLET PO SCH (10:05)
[2023-07-26] MEDS: levETIRAcetam 500 MG TAB PO SCH (10:06)
--- NOTE | 2023-07-26 12:23 | P.PN ---
Subjective Progress Note Date: 07/26/23 This is a 72-year-old male patient who is coming in the hospital because of worsening shortness of breath. The patient is known to me from previous admissions. The patient is known to have metastatic colon cancer. The patient has history of colon cancer with metastases to his lungs. This was diagnosed proximally 6 years ago and over the years, the patient has been treated for an oncologist out of [facility] regarding his colon cancer. He has utilized various treatments including FOLFOX and 5-FU over the years and his disease has a progressively getting worse. Recently, he was being contemplated for a clinical trial and he did not go to the clinical trial at this was a phase I trial. The patient has had serial PET scans and CAT scans over the years most of them have been done at [facility]. For instance, his most recent PET/CT that was done on 03/21/2023 showed multiple increasing bilateral lung masses with increasing SUV compatible with worsening neoplastic process. The patient had various lung masses largest being in the right lower lobe posterior segment. At that time, he had no significant pleural effusion. The PET scan of the thorax showed intense uptake within the right suprahilar lesion with an SUV of 4.7. Increase uptake in the periphery of the right upper lobe with an SUV of 3.5. There was also a right infrahilar mass with SUV of 3.9. In tense activity in the periphery of the right lung measuring 7.5 SUV and intense metabolic activity in the lung mass in the left midlung with an SUV of 4.4. Another mass in the posterior right lower lobe with an SUV of 6.4. He has not been receiving any treatment for now. Furthermore, a CAT scan of the abdomen that was done on 04/27/2023 demonstrated again some mild left-sided hydronephrosis with a obstructing 1 cm Within the proximal left ureter. There was nonobstructive bilateral renal stones. There is development of a right- sided pleural effusion that has increased in size in addition to a various masses in the lung bases bilaterally as mentioned above. No evidence of any disease involving the abdomen. There was evidence of cholelithiasis. The patient also has a remote history of bladder cancer, resected surgically. During an earlier hospitalization, was able to drain the patient's right lung and the fluid was an exudate with a negative cytology. During his subsequent follow-up admission, the patient had a ultrasound of the chest that showed an 11 cm pocket of fluid in the right lung. At that time, the patient did not have any further drainage. Chest x-ray from today showing a large right lower lobe mass in the right lower lung is hazy probably related to some residual pleural fluid. The patient is also having issues with atrial fibrillation fibrillation and the patient's current on IV heparin. No altered mentation. He remains on 2 L of oxygen by nasal cannula. Support is at 0.02. The white cell cause of 9.8 with a hemoglobin of 11.4. Normal coagulation profile. On today's session of 07/26/2023, the patient's condition is unchanged. A CAT scan of the chest was done yesterday showed small pockets of right-sided pleural effusion. Nevertheless, there is extensive metastases to the lungs as the patient was found to have multiple metastatic lesions with a larger masses in the right lung. There is also pleural thickening. She is scattered mediastinal lymph nodes. Findings are consistent with metastatic disease. Also the computed tomography scan of the brain showed no evidence of any hemorrhage and there was posterior left frontal/parietal region mass which has remained unchanged compared to the previous MRI of the brain that was done on 07/07/2023. His edema and the patient is on Decadron. Meanwhile, the patient's cardiac rhythm is back into normal sinus. He remains on oxygen at 2 L with a pulse ox of 94%. Objective - Vital Signs Vital signs: Vital Signs Temp 98.3 F 07/26/23 04:34 Pulse 81 07/26/23 06:53 Resp 22 07/26/23 04:34 BP 133/82 07/26/23 04:34 Pulse Ox 93 L 07/26/23 04:34 FiO2 Intake & Output 07/25/23 07/26/23 07/26/23 18:59 06:59 18:59 Intake Total 465.937 540 240 Output Total 1325 Balance 465.937 -785 240 Weight 106.4 kg Intake: Intake, IV Titration 229.937 Amount Heparin Sod,Pork in 0.45% 229.937 NaCl 25,000 unit In 0.45 % NaCl 1 250ml.bag @ 9. 3814 UNITS/KG/HR 10 mls/ hr IV [facility] Rx#: [id number] Oral 236 540 240 Output: Urine 1325 Other: Voiding Method Urinal Urinal # Voids 2 # Bowel Movements 1 - Exam GENERAL EXAM: 72-year-old white male in no distress, on 2 L nasal cannula and O2 sats is 97% HEAD: Normocephalic and atraumatic EENT: PERRLA, EOMI, nonicteric, no neck masses no JVD, no stridor. CHEST: No chest wall deformity. LUNGS: Slightly diminished breath sounds at the right base to crackles or rhonchi or wheezes CVS: S1 and S2 normal with no audible murmur, regular rhythm. No extra heart sounds ABDOMEN: Obese soft nontender no megaly no rebound SKIN: No rashes Psychiatric: Normal mood affect and normal mental status examination. Extremities: No clubbing edema or cyanosis CENTRAL NERVOUS SYSTEM: Alert and oriented 3, minimal right-sided weakness noted. - Labs CBC & Chem 7: 07/26/23 08:29 07/26/23 08:29 Labs: Abnormal Lab Results - Last 24 Hours (Table) 07/25/23 07/25/23 07/26/23 Range/Units 09:08 14:59 08:29 Hgb 12.4 L (13.0-17.5) gm/dL MCHC 30.9 L (31.0-37.0) g/dL RDW 16.2 H (11.5-15.5) % APTT 30.2 H (22.0-30.0) sec Sodium 132 L (137-145) mmol/L Chloride 97 L (98-107) mmol/L Carbon Dioxide (22-30) mmol/L BUN 22 H (9-20) mg/dL Creatinine 0.53 L (0.66-1.25) mg/dL Glucose (74-99) mg/dL 07/26/23 Range/Units 08:29 Hgb (13.0-17.5) gm/dL MCHC (31.0-37.0) g/dL RDW (11.5-15.5) % APTT (22.0-30.0) sec Sodium 136 L (137-145) mmol/L Chloride 94 L (98-107) mmol/L Carbon Dioxide 32 H (22-30) mmol/L BUN 22 H (9-20) mg/dL Creatinine 0.57 L (0.66-1.25) mg/dL Glucose 141 H (74-99) mg/dL Assessment and Plan Plan: Chronic hypoxic respiratory failure, remains on oxygen at 2 L per minute nasal cannula, essentially related to metastatic disease involving the lungs and the patient has multiple innumerable pulmonary lesions and lung masses and a very tiny loculated right-sided pleural effusion. There is also pleural involvement. Shortness of breath, multifactorial. The patient has evidence of lung masses related to pulmonary metastases. The patient also has residual right-sided pleural effusion, 11 cm pocket of fluid was seen and ultrasound of the chest that was done on 07/07/2023. Previous thoracentesis was done on 06/14/2023. The fluid cytology was negative. No significant pleural effusion to drain Right-sided pleural effusion, previous thoracentesis on 06/14/2023, fluid was an exudate with a negative cytology. Based on a previous CAT scan of the chest from May 2023 computed tomography scan of the chest will be crucial to evaluate for lung mass/pleural effusion/pulmonary embolism especially with his history of metastatic colon cancer. Obviously, the patient has been progressing over the years and the patient's most recent PET/CT that was done in February 2023 showed progression of his underlying metastatic cancer. Pneumonia is considered to be less likely. No significant pleural effusion to drain based on the most recent CAT scan of the chest. There is evidence of extensive bilateral metastatic changes and nodules. Metastatic colon cancer with pulmonary involvement. The patient has enlarging masses bilaterally largest metastases being in the right lower lobe. There is also developed some pleural effusion based on the most recent CAT scan of the abdomen that was done April 2023. He has utilizes various treatments for metastatic colon cancer the patient was being considered for clinical trials. His oncologist out of town. History of bladder cancer post transurethral resection of the bladder cancer History of kidney stone with a previous CAT scan of the abdomen showing some left hydronephrosis. History of nephrolithiasis History of cholelithiasis Hyperlipidemia BPH Previous history of CVA Atrial fibrillation with rapid ventricular response, patient is back to normal sinus rhythm. Plan Unfortunately, nothing much can be offered for the pulmonary standpoint. The patient is currently stable on 2 L of O2 nasal cannula No need for thoracentesis and there is no indication for thoracentesis and the patient does not have any signs of any pleural effusion Patient is quite debilitated due to his metastatic cancer Management of Yesenia jacobo, currently back to sinus Stable [employer] metastatic lesion Oncology follow-up We'll continue to follow
[2023-07-26 12:28] VITALS: BP 109/69; PULSE 86; RESP 22; TEMP 97.8
--- NOTE | 2023-07-26 12:52 | P.DS ---
Providers Date of admission: 07/24/23 18:07 Expected date of discharge: 07/26/23 Attending physician: Renée Serrano MD Consults: 07/24/23 18:07 Consult Physician Routine Consulting Provider: Robert Jones Consult Reason/Comments: known Do you want consulting provider notified?: Yes 07/25/23 04:10 Consult Physician Routine Consulting Provider: Braxton Champion Consult Reason/Comments: afib with rvr Do you want consulting provider notified?: Yes Primary care physician: [facility] Hospital Course: Discharge Diagnosis: Colon cancer, Stage IV with mets to liver, lung, and brain Recurrent right sided pleural effusion Brain mets with surrounding vasogenic edema last admission and right sided weakness A fib with RVR, now in normal sinus rhythm Hallucinations Type II NSTEMI due to demand iscemia from A fib Chronic pain related to malignancy Chronic: COPD prior CVA GERD HTN Hospital Course: Patient is a 72-year-old male with stage IV metastatic colon cancer with known metastases to liver, lung, and brain with recurrent right-sided pleural effusions. Patient is well known to our group with 4 hospitalizations in the last 2 months. On arrival to the ER here he was tachycardic and noted to be in A. fib with rapid ventricular response. Chest x-ray shows minimal right sided pleural effusion with progressive right-sided masses. Laboratory analysis was remarkable for white blood cell count 10.8, hemoglobin 11.7, sodium 133, troponin 0.037 and BNP 3390. He was started on a Cardizem and heparin drip. Overnight his Cardizem drip was discontinued as he converted to normal sinus rhythm. He was maintained on a heparin drip. He was seen by cardio and pulmonary. He underwent CT head which showed no intracranila hemorrhage but did remonstrated let frontal/parietal lobe mass with surround vasogenic edema. CTA of the chest was preformed which showed metastatic disease with innumerable right-sided pulmonary nodules with pleural thickening and effusion.CHADSVASc is 1 and cardio did not recommend anticoagulation due to low risk of stroke and high risk of bleeding with metastatic disease. He was transitioned to oral metoprolol. Pulmonary reviewed CT and determined that there was no indication for thoracentesis at this time as the effusion is minimal and there are pleural based lesions. A noe discussion was had with the patient and s/o that there is not much more to offer in the hospital and that we do not anticipate an improvement in his functional status at this time. Patient and significant other decline other needs at home and state he has home health and therapy, he has nebulizer, rescue inhaler, and adequate pain control at home. I offered again to set up hospice services if at anytime he feels ready, at this time patient declines. Patient seen and examined at bedside. Breathing stable from yesterday, pain adequately controlled with meds. Vital signs reviewed and stable. General: ill appearing, no distress, appears at stated age Cardiovascular: S1S2 irreg, no murmur, positive posterior tibial pulse bilateral, Lungs: Course bs bilateral, no rhonchi, no rales , no accessory muscle use, 3 word conversational dyspnea Abdominal: soft, nontender to palpation, no guarding, no appreciable organomegaly Ext: no gross muscle atrophy, no edema b/l lower extremities, no contractures Neuro: CN II-XI grossly intact, no focal neuro deficits Psych: Alert, oriented, appropriate affect A total of 37 minutes of time were spent preparing this complex discharge summar y. Patient was discharged on 07/26/23. This dictation was prepared using [employer] voice recognition software. Though every attempt is made to correct errors during dictation some may still exist. Plan - Discharge Summary Discharge Rx Participant: No New Discharge Prescriptions: New RX: Metoprolol Tartrate [Lopressor] 25 mg PO BID #60 tab Continue RX: Cholecalciferol [Vitamin D3 (25 Mcg = 1000 Iu)] 25 mcg PO DAILY RX: [place]-3 Fatty Acids [[place]-3] 4,000 mg PO DAILY RX: DULoxetine HCL [Cymbalta] 60 mg PO HS RX: Tamsulosin [Flomax] 0.4 mg PO HS RX: Pregabalin [Lyrica] 75 mg PO BID RX: Pantoprazole [Protonix] 40 mg PO HS RX: Montelukast [Singulair] 10 mg PO HS RX: Morphine Sulfate ER [Ms Contin] 30 mg PO BID RX: Cyanocobalamin (Vitamin B-12) [Vitamin B-12] 1,000 mcg PO DAILY RX: Albuterol Sulfate [Ventolin HFA] 1 - 2 puff INHALATION RT-Q4H PRN PRN Reason: Shortness Of Breath RX: Garlic 1,000 mg PO DAILY RX: Atorvastatin [Lipitor] 40 mg PO HS RX: HYDROcodone/APAP 10-325MG [[place] 10-325] 1 tab PO Q6H PRN PRN Reason: Pain RX: Prochlorperazine [Compazine] 10 mg PO Q6H PRN PRN Reason: Nausea RX: guaiFENesin [Mucinex] 1,200 mg PO BID RX: polyethylene glycoL 3350 [Miralax] 17 gm PO DAILY RX: levETIRAcetam [Keppra] 500 mg PO Q12HR #60 tab RX: dexAMETHasone ORAL [Hexadrol] See Taper PO QID Changed RX: Ipratropium-Albuterol Nebulize [Duoneb 0.5 mg-3 mg/3 ml Soln] 3 ml INHALATION RT-QID #0 Discharge Medication List RX: Atorvastatin [Lipitor] 40 mg PO HS 06/12/23 [History] RX: Cholecalciferol [Vitamin D3 (25 Mcg = 1000 Iu)] 25 mcg PO DAILY 06/12/23 [History] RX: Cyanocobalamin (Vitamin B-12) [Vitamin B-12] 1,000 mcg PO DAILY 06/12/23 [History] RX: DULoxetine HCL [Cymbalta] 60 mg PO HS 06/12/23 [History] RX: HYDROcodone/APAP 10-325MG [[place] 10-325] 1 tab PO Q6H PRN 06/12/23 [History] RX: Montelukast [Singulair] 10 mg PO HS 06/12/23 [History] RX: Morphine Sulfate ER [Ms Contin] 30 mg PO BID 06/12/23 [History] RX: [place]-3 Fatty Acids [[place]-3] 4,000 mg PO DAILY 06/12/23 [History] RX: Pantoprazole [Protonix] 40 mg PO HS 06/12/23 [History] RX: Pregabalin [Lyrica] 75 mg PO BID 06/12/23 [History] RX: Prochlorperazine [Compazine] 10 mg PO Q6H PRN 06/12/23 [History] RX: Tamsulosin [Flomax] 0.4 mg PO HS 06/12/23 [History] RX: Albuterol Sulfate [Ventolin HFA] 1 - 2 puff INHALATION RT-Q4H PRN 07/06/23 [History] RX: guaiFENesin [Mucinex] 1,200 mg PO BID 07/06/23 [History] RX: polyethylene glycoL 3350 [Miralax] 17 gm PO DAILY 07/06/23 [History] RX: levETIRAcetam [Keppra] 500 mg PO Q12HR #60 tab 07/10/23 [Rx] RX: Garlic 1,000 mg PO DAILY 07/24/23 [History] RX: dexAMETHasone ORAL [Hexadrol] See Taper PO QID 07/24/23 [History] RX: Ipratropium-Albuterol Nebulize [Duoneb 0.5 mg-3 mg/3 ml Soln] 3 ml INHALATION RT-QID #0 07/26/23 [Rx] RX: Metoprolol Tartrate [Lopressor] 25 mg PO BID #60 tab 07/26/23 [Rx] Follow up Appointment(s)/Referral(s): Manuel Lopez MD [Primary Care Provider] - 1-2 days Patient Instructions/Handouts: Lung Cancer (DC), Pleural Effusion (DC), Brain Metastasis (DC), Shortness of Breath (DC) Activity/Diet/Wound Care/Special Instructions: Special Instructions: Monitor hear rate and blood pressure at home. You have had dizziness with a similar formulation of metoprolol in the past, but at this time this is the safest medication for you to keep your heart rate controlled. As we have spoke about, if at any point you feel that you are ready for hospice, the 2 most commonly used in the area are [facility] ([phone]) and [facility] ([phone]) Discharge Disposition: HOME SELF-CARE
== END 2023-07-26 13:45 | disposition home or self-care (01) | DRG 280 ==
LOC: EC 13:48 → 3SCARD 18:07
PROVIDERS: ADMIT Internal Medicine; ATTEND Internal Medicine
PROC: 3E033RZ Introduction of Antiarrhythmic into Peripheral Vein, Percutaneous Approach (ICD-10-PCS; principal; 2023-07-24)
DX: I48.0 Paroxysmal atrial fibrillation (principal); I21.A1 Myocardial infarction type 2; G93.41 Metabolic encephalopathy; G93.6 Cerebral edema; C18.9 Malignant neoplasm of colon, unspecified; C78.01 Secondary malignant neoplasm of right lung; C78.02 Secondary malignant neoplasm of left lung; J90 Pleural effusion, not elsewhere classified; J96.11 Chronic respiratory failure with hypoxia; C78.7 Secondary malignant neoplasm of liver and intrahepatic bile duct; C79.31 Secondary malignant neoplasm of brain; N13.2 Hydronephrosis with renal and ureteral calculous obstruction; E86.0 Dehydration; J44.9 Chronic obstructive pulmonary disease, unspecified; I48.92 Unspecified atrial flutter; I95.9 Hypotension, unspecified; G89.3 Neoplasm related pain (acute) (chronic); I10 Essential (primary) hypertension; E78.5 Hyperlipidemia, unspecified; K21.9 Gastro-esophageal reflux disease without esophagitis; K80.20 Calculus of gallbladder without cholecystitis without obstruction; N40.0 Benign prostatic hyperplasia without lower urinary tract symptoms; F41.9 Anxiety disorder, unspecified; Z99.81 Dependence on supplemental oxygen; Z79.891 Long term (current) use of opiate analgesic; Z79.899 Other long term (current) drug therapy; Z87.891 Personal history of nicotine dependence; Z86.73 Personal history of transient ischemic attack (TIA), and cerebral infarction without residual deficits; Z87.442 Personal history of urinary calculi; Z85.51 Personal history of malignant neoplasm of bladder; Z92.3 Personal history of irradiation; Z88.8 Allergy status to other drugs, medicaments and biological substances; Z28.310 Unvaccinated for COVID-19
CPT/HCPCS: 36415; 70450; 71045; 71275; 80048; 80053; 82272; 83605; 83735; 83880; 84484; 85025; 85027; 85610; 85730; 93005; 94640; 94760; 96361; 96365; 96375; 99291

== ENCOUNTER 2023-07-30 18:50 | Inpatient (IN) | payer MEDICARE ==
[2023-07-30] MEDS ORDERED: SODIUM CHLORIDE 0.9% 1,000 ML IV STA ×4 (18:59→22:43)
[2023-07-30] MEDS ORDERED: methylPREDNISolone SOD SUCCI 125 MG/2 ML VIAL IV STA (18:59)
[2023-07-30] MEDS ORDERED: MAGNESIUM SULFATE-D5W PMX 1 GM in DEXTROSE/WATER 1 100ML.BAG IVPB STA (18:59)
[2023-07-30] MEDS ORDERED: IPRATROPIUM-ALBUTEROL 3 ML NEB INHALATION STA (18:59)
--- NOTE | 2023-07-30 19:50 | XR ---
EXAMINATION TYPE: XR chest 1V portable DATE OF EXAM: 07/30/2023 7:14 PM CLINICAL INDICATION:Male, 72 years old with history of cough; [facility] COMPARISON: Chest radiographs from 07/25/2023. TECHNIQUE: XR chest 1V portable Frontal view of the chest. FINDINGS: Lungs/Pleura: There is a small right pleural effusion. There is no evidence of left pleural effusion, focal consolidation, or pneumothorax. Pulmonary vascularity: Unremarkable. Heart/mediastinum: Cardiomediastinal silhouette is unremarkable. Musculoskeletal: No acute osseous pathology. Other findings: None Lines/Tubes: [id number] projecting over the right hemithorax with distal tip at the cavoatrial junction. IMPRESSION: 1. Similar exam given differences in technique. There is right lower lobe and scattered airspace opa cities compatible with known malignancy with metastatic disease. 2. Small right pleural effusion.
[2023-07-30 20:08] LABS: Anisocytosis Slight; Basophils % (A) 0 %; Eosinophils % (A) 0 %; HCT 42.5 % (39.0-53.0); HGB 13.5 gm/dL (13.0-17.5); Hypochromasia Slight; Lymphocytes # (A) 1.1 k/uL (1.0-4.8); Lymphocytes % (A) 8 %; MCH 27.1 pg (25.0-35.0); MCHC 31.9 g/dL (31.0-37.0); Mean Platelet Volume 7.4; Monocytes # (A) 0.3 k/uL (0-1.0); Monocytes % (A) 2 %; Neutrophils # (A) 12.3 k/uL (1.3-7.7); Neutrophils % (A) 88 %; Platelet Count 334 k/uL (150-450); RDW 16.3 % (11.5-15.5); WBC 13.9 k/uL (3.8-10.6)
[2023-07-30] MEDS ORDERED: DILTIAZEM DRIP BOLUS FROM BAG 1 MG SOLN IV ONE (20:12)
[2023-07-30 20:25] LABS: VBG PH 7.45 (7.31-7.41)
[2023-07-30] MEDS ORDERED: DILTIAZEM 125 MG in SODIUM CHLORIDE 0.9% 100 ML IV SCH (20:30)
[2023-07-30 20:34] LABS: Partial Thromboplastin Time 25.8 sec (22.0-30.0); Prothrombin Time 10.5 sec (10.0-12.5)
[2023-07-30 20:37] LABS: ALT 36 U/L (4-49); AST 32 U/L (17-59); African American GFR (CKD) >90 (>60 ml/min/1.73 sqM); Alkaline Phosphatase 107 U/L (38-126); Anion Gap 10 mmol/L; Blood Urea Nitrogen 23 mg/dL (9-20); Carbon Dioxide 29 mmol/L (22-30); Chloride 96 mmol/L (98-107); Glucose 138 mg/dL (74-99); Magnesium 1.9 mg/dL (1.6-2.3); Non-African American GFR(CKD) >90 (>60 ml/min/1.73 sqM); Sodium 135 mmol/L (137-145); Total Bilirubin 0.8 mg/dL (0.2-1.3); Total Protein 6.6 g/dL (6.3-8.2)
[2023-07-30 20:39] LABS: Appearance,Urine Clear (Clear); Bacteria,Urine Rare /hpf; Bilirubin,Urine Negative (Negative); Blood,Urine Small (Negative); Color,Urine Yellow; Glucose,Urine (UA) 1+ (Negative); Hyaline Casts,Urine 1 /lpf (0-2); Ketones,Urine Negative (Negative); Leukocyte Esterase,Urine Small (Negative); Mucus,Urine Moderate /hpf; Nitrite,Urine Negative (Negative); Protein,Urine 1+ (Negative); RBC,Urine 37 /hpf (0-5); Specific Gravity,Urine 1.024 (1.001-1.035); Squamous Epithelial Cell,Urine <1 /hpf (0-4); Urobilinogen,Urine <2.0 mg/dL (<2.0); WBC,Urine 18 /hpf (0-5)
[2023-07-30 20:45] LABS: NT-Pro-B-Type Natriuretic Pept 911 pg/mL
[2023-07-30] MEDS ORDERED: DEXTROSE 5% IN WATER 100 ML with AMIODARONE 150 MG IV ONE (21:20)
[2023-07-30] MEDS ORDERED: AMIODARONE 360 MG in DEXTROSE 5% IN WATER 200 ML IV ONE ×2 (21:30)
[2023-07-30] MEDS ORDERED: ETOMIDATE 2 MG/ML 10 ML VIAL IVP STA (21:37)
--- NOTE | 2023-07-30 21:49 | CT ---
EXAMINATION TYPE: CT chest angio for PE CT DLP: 959.4 mGycm, Automated exposure control for dose reduction was used. DATE OF EXAM: 07/30/2023 8:55 PM COMPARISON: 07/25/2023, 03/20/2023, 04/27/2023 CLINICAL INDICATION:Male, 72 years old with history of eval for PE. dyspnea; Eval for PE, Dyspnea. TECHNIQUE/CONTRAST: CTA scan of the thorax is performed with IV Contrast, patient injected with 100 ml mL of Isovue 300, MIP images are created and reviewed these are created on a separate workstation.. FINDINGS: Pulmonary Artery: There is no evidence for a filling defect within the pulmonary vasculature to sugge st acute pulmonary embolism. The pulmonary artery is of normal size. Lungs/Pleura: Enlarging right pleural effusion is loculated. Multiple masses are seen along the pleur a. Additional left lower lobe pulmonary nodule is again seen. Findings not significantly changed from 07/25/2023 regarding the size of the pulmonary masses. Conscious opacities in the left upper lung ar e also not significantly changed. Airway: There is nonvisualization of the airways right after the right main bronchus involving the ri t lower lung series 501 image 82 with suspected postobstructive atelectasis possibly relating to en larging right pleural effusion. Heart: Heart is within normal limits for size. Vasculature: Mild atherosclerotic calcifications are present throughout the aorta and its branches. Mediastinum: No gross evidence of adenopathy. Musculoskeletal: Mild degenerative disc disease changes are present throughout the thoracolumbar spin e. Multiple left rib 7 fractures. Soft Tissues: Unremarkable. Lower neck: No significant findings. Upper Abdomen: Hepatic metastatic disease in the left hepatic lobe measuring up to 2.4 cm in the righ t hepatic lobe measuring up to 3.4 cm. IMPRESSION: 1. Enlarging right pleural effusion with increasing atelectasis of the lower right lung compared to 07/25/2023. These results are likely secondary compression of the airways and/or postobstructive poss ibly relating to mucous secretions of the right pulmonary hilum. 2. No evidence for pulmonary embolus. 3. Pulmonary metastatic disease along the right pleura and throughout the lungs is not significantly changed from 07/25/2023. 4. New low-density liver lesions suspicious for metastatic disease.
[2023-07-30 21:59] LABS: Potassium 4.8 mmol/L (3.5-5.1)
--- NOTE | 2023-07-30 22:10 | ED ---
General Adult HPI - General Chief complaint: Shortness of Breath Stated complaint: SOB Time Seen by Provider: 07/30/23 18:54 Source: patient, EMS, RN notes reviewed, old records reviewed Mode of arrival: EMS Limitations: no limitations - History of Present Illness Initial comments: Patient is a 72-year-old male presents with the department for any difficulty in breathing, tachycardia. He has a history of A. fib. Is not on blood thinners. Has a history of metastatic cancer. Was recently admitted for similar complaints. Found to have a pleural effusion as well as lung metastasis. Is been home for a few days and presents again with similar complaints. Denies any chest pain. Endorses shortness of breath, mild cough. Denies any abdominal robert n, nausea and vomiting. States symptoms of been ongoing since 11 AM this morning. Presents this evening for further evaluation. It is a. They attempted to make the patient on hospice last admission as it was recommended however patient declined at that time. - Related Data Home Medications Medication Instructions Recorded Confirmed Atorvastatin [Lipitor] 40 mg PO HS 06/12/23 07/30/23 Cholecalciferol [Vitamin D3 (25 25 mcg PO DAILY 06/12/23 07/30/23 Mcg = 1000 Iu)] Cyanocobalamin (Vitamin B-12) 1,000 mcg PO DAILY 06/12/23 07/30/23 [Vitamin B-12] DULoxetine HCL [Cymbalta] 60 mg PO HS 06/12/23 07/30/23 HYDROcodone/APAP 10-325MG [Sophia 1 tab PO Q6H PRN 06/12/23 07/30/23 10-325] Montelukast [Singulair] 10 mg PO HS 06/12/23 07/30/23 Morphine Sulfate ER [Ms Contin] 30 mg PO BID 06/12/23 07/30/23 [place]-3 Fatty Acids [[place]-3] 4,000 mg PO DAILY 06/12/23 07/30/23 Pantoprazole [Protonix] 40 mg PO HS 06/12/23 07/30/23 Pregabalin [Lyrica] 75 mg PO BID 06/12/23 07/30/23 Prochlorperazine [Compazine] 10 mg PO Q6H PRN 06/12/23 07/30/23 Tamsulosin [Flomax] 0.4 mg PO HS 06/12/23 07/30/23 Albuterol Sulfate [Ventolin HFA] 1 - 2 puff INHALATION RT-Q4H PRN 07/06/23 07/30/23 guaiFENesin [Mucinex] 1,200 mg PO BID 07/06/23 07/30/23 polyethylene glycoL 3350 [Miralax] 17 gm PO DAILY 07/06/23 07/30/23 Garlic 1,000 mg PO DAILY 07/24/23 07/30/23 dexAMETHasone ORAL [Hexadrol] See Taper PO DIRECTED 07/24/23 07/30/23 Previous Rx's Medication Instructions Recorded levETIRAcetam [Keppra] 500 mg PO Q12HR #60 tab 07/10/23 Ipratropium-Albuterol Nebulize 3 ml INHALATION RT-QID #0 07/26/23 [Duoneb 0.5 mg-3 mg/3 ml Soln] Metoprolol Tartrate [Lopressor] 25 mg PO BID #60 tab 07/26/23 Allergies Allergy/AdvReac Type Severity Reaction Status Date / Time alprazolam [From Xanax] Allergy Unknown Verified 07/30/23 22:38 scopolamine Allergy Unknown Verified 07/30/23 22:38 metoprolol [From Toprol XL] AdvReac Dizziness Verified 07/30/23 22:38 Review of Systems ROS Statement: Those systems with pertinent positive or pertinent negative responses have been documented in the HPI. Review of Systems: CONST: Denies fever EYES: Denies blurry vision ENT: Denies nasal congestion C/V: Denies Chest pain RESP: Endorses shortness of breath GI: Denies abdominal pain : Denies dysuria SKIN: Denies rash. MSK: Denies joint pain. NEURO: Denies headache ROS Other: All systems not noted in ROS Statement are negative. Past Medical History Past Medical History: Cancer, COPD, CVA/TIA, GERD/Reflux, Hypertension Additional Past Medical History / Comment(s): S4 colon cancer, lung cancer, bladder cancer, brain cancer History of Any Multi-Drug Resistant Organisms: None Reported Past Surgical History: Bowel Resection, Joint Replacement, Orthopedic Surgery Past Anesthesia/Blood Transfusion Reactions: No Reported Reaction Past Psychological History: No Psychological Hx Reported Smoking Status: Former smoker Past Alcohol Use History: None Reported Past Drug Use History: Marijuana General Exam - General Exam Comments Initial Comments: General: Appears in respiratory distress. HEAD: Normal with no signs of head trauma. EYES: PERRLA, EOMI, conjunctiva normal, no discharge. ENT: Hearing grossly intact, normal oropharynx. RESPIRATORY: Coarse breath sounds primarily over the right lung field with decreased breath sounds over the right inferior lobe.. Significant increased work of breathing. Apparently mild hypoxia at home. C/V: Irregularly irregular rate and rhythm. S1 and S2 auscultated, peripheral pulses 2+ and intact throughout ABD: Abd is soft, nontender, nondistended EXT: Normal range of motion, no obvious deformity SKIN: No rashes or lesions observed on exposed skin. NEURO: Alert and oriented x 4. Limitations: no limitations Course Vital Signs 07/30/23 07/30/23 07/30/23 18:55 19:33 20:00 Temperature 97 F L Pulse Rate 139 H 120 H Respiratory 26 H 36 H Rate Blood Pressure 129/99 122/88 O2 Sat by Pulse 98 94 L Oximetry Fraction of 35 Inspired Oxygen (FIO2) 07/30/23 07/30/23 07/30/23 20:02 20:11 21:00 Temperature Pulse Rate 147 H 160 H Respiratory 26 H Rate Blood Pressure 90/49 O2 Sat by Pulse Oximetry Fraction of 50 Inspired Oxygen (FIO2) 07/30/23 07/30/23 07/30/23 21:07 21:24 21:47 Temperature Pulse Rate 176 H 168 H 151 H Respiratory 32 H 28 H 32 H Rate Blood Pressure 86/66 89/68 73/51 O2 Sat by Pulse 96 94 L 94 L Oximetry Fraction of Inspired Oxygen (FIO2) 07/30/23 07/30/23 07/30/23 21:57 22:09 22:24 Temperature Pulse Rate 154 H 158 H 144 H Respiratory 26 H 28 H Rate Blood Pressure 99/67 96/62 112/87 O2 Sat by Pulse 94 L 94 L Oximetry Fraction of Inspired Oxygen (FIO2) 07/30/23 07/30/23 07/30/23 22:31 22:42 22:46 Temperature Pulse Rate 158 H 156 H 131 H Respiratory 26 H 28 H 26 H Rate Blood Pressure 101/67 94/79 101/72 O2 Sat by Pulse 95 94 L Oximetry Fraction of Inspired Oxygen (FIO2) 07/30/23 07/30/23 23:07 23:25 Temperature Pulse Rate 138 H 123 H Respiratory 26 H 20 Rate Blood Pressure 106/88 96/71 O2 Sat by Pulse 95 96 Oximetry Fraction of Inspired Oxygen (FIO2) Medical Decision Making - Medical Decision Making Was pt. sent in by a medical professional or institution (, PA, CREATIVE CONSULTANT, urgent care, hospital, or assisted...) When possible be specific @ -No Did you speak to anyone other than the patient for history (EMS, parent, family, police, friend...)? What history was obtained from this source @ -No Did you review nursing and triage notes (agree or disagree)? Why? @ -I reviewed and agree with nursing and triage notes Were old charts reviewed (outside hosp., previous admission, EMS record, old EKG, old radiological studies, urgent care reports/EKG's, assisted records)? Report findings @ -Old charts reviewed Differential Diagnosis (chest pain, altered mental status, abdominal pain women, abdominal pain men, vaginal bleeding, weakness, fever, dyspnea, syncope, headache, dizziness, GI bleed, back pain, seizure, CVA, palpatations, mental health, musculoskeletal)? @ -Differential Dyspnea: Coronary syndrome, arrhythmia, tamponade, asthma, COPD, pulmonary embolism, pneumonia, pneumothorax, pulmonary effusion, anaphylaxis, diabetic ketoacidosis, flailed chest, pulmonary contusion, diaphragmatic rupture, anemia, neuromuscular, this is not meant to be an all-inclusive list. EKG interpreted by me (3pts min.). @ -As above X-rays interpreted by me (1pt min.). @ -Chest x-ray reveals right pleural effusion as well as redemonstrated malignancy, suspected metastatic disease based on previous notes. CT interpreted by me (1pt min.). @ -ETT PE negative for pulmonary embolism. Does show enlarging right pleural effusion when compared to prior CT resulting in partial airway as well as new low density liver lesions suspicious for metastatic disease. No evidence for PE. U/S interpreted by me (1pt. min.). @ -None done What testing was considered but not performed or refused? (CT, X-rays, U/S, labs)? Why? @ -None What meds were considered but not given or refused? Why? @ -None Did you discuss the management of the patient with other professionals (christiano womack i.e. Dr., PA, CREATIVE CONSULTANT, lab, RT, psych nurse, secondary social studies teacher, interlocking tower operator, teacher, deportation officer, bilingual case manager)? Give summary @ -Discussed with the admitting physician, Dr. Henley who accepted the admission. Was smoking cessation discussed for >3mins.? @ -No Was critical care preformed (if so, how long)? @ -Yes, 63 minutes Were there social determinants of health that impacted care today? How? (Homelessness, low income, unemployed, alcoholism, drug addiction, transportation, low edu. Level, literacy, decrease access to med. care, long term, rehab)? @ -No Was there de-escalation of care discussed even if they declined (Discuss DNR or withdrawal of care, Hospice)? DNR status @ -I discussed the suspected prognosis for the patient with metastatic cancer with suspected lung metastases and recommended hospice is this was recommended on previous admission as well. Patient wishes to remain full code at this time but is more receptive to possible hospice as he does understand prognosis is poor. What co-morbidities impacted this encounter? (DM, HTN, Smoking, COPD, CAD, Cancer, CVA, ARF, Chemo, Hep., AIDS, mental health diagnosis, sleep apnea, morbid obesity)? @ -Chronic atrial fibrillation, metastatic cancer Was patient admitted / discharged? Hospital course, mention meds given and route, prescriptions, significant lab abnormalities, going to OR and other pertinent info. @ -Based on the patient's presentation and physical exam, patient presents for shortness of breath, and A. fib with RVR. Patient presented with similar complaints last week. Has a history of known metastatic cancer. Denies being on blood thinners. Patient has increased work of breathing with worsening tachycardia. Heart rates in the 170s. Patient's blood pressure is soft her but adequate. We will place the patient on BiPAP due to his increased work of breathing. We will obtain cardiac workup. This includes TTP as he is not on blood thinners but has a history cancer and is currently tachycardic, dyspneic. Patient was in agreement this plan. Laboratory studies remarkable for a mild leukocytosis of 13.9 which is likely reactive. Patient has lactic acidosis of 3.2 which is likely secondary to dehydration or hypoxia. Troponin is indeterminate. BNP is minimally elevated. Remainder the labs unremarkable. Chest x-ray shows a pleural effusion that s eems larger than previous. Also the metastatic disease. Patient's CT does not reveal PE, but does show soft tissue lesions in the liver as well as a larger pleural effusion and compression atelectasis on the right. The patient's atrial fibrillation with RVR, patient did respond to Cardizem drip previously which is why placed the patient on a Cardizem at this time. Patient did receive the initial bolus in addition to a bolus of fluids however patient's blood pressure did drop after this. Cardizem was turned off. He remained A. fib and RVR with heart rates in the 160s to 170s. Pressures remained soft as well, ranging anywhere from systolics of 70 to systolics of 90. Patient received additional fluids at this time and we did move the patient to trauma bay 2 over concern for possible need to cardiovert the patient due to unstable atrial fibrillation. Heart rates at this time continued to be in the 150s to 170s. Patient did improve, cardioversion was not required. Considered amio darone drip however has patient was started on metoprolol on last admission we did attempt pushes of IV metoprolol she did improve the patient's heart rate down to 120s and patient was given an oral dose 25 mg of metoprolol. Patient's blood pressure was maintained. He is feeling improved at this time. He'll be admitted to the hospital. Cardiology and pulmonology consulted. I spoke with the admitting physician, Dr. Henley who accepted the admission. Undiagnosed new problem with uncertain prognosis? @ -No Drug Therapy requiring intensive monitoring for toxicity (Heparin, Nitro, Insulin, Cardizem)? @ -No Were any procedures done? @ -No Diagnosis/symptom? @ -Hypoxic respiratory failure likely secondary to pleural effusion and metastatic cancer on BiPAP Acute, or Chronic, or Acute on Chronic? @ -Acute Uncomplicated (without systemic symptoms) or Complicated (systemic symptoms)? @ -Complicated Side effects of treatment? @ -No Exacerbation, Progression, or Severe Exacerbation? @ -No Poses a threat to life or bodily function? How? (Chest pain, [place], [place], pneumonia, PE, COPD, DKA, ARF, appy, cholecystitis, CVA, Diverticulitis, Homicidal, Suicidal, threat to staff... and all critical care pts) @ -Yes Diagnosis/symptom? @ -A. fib with RVR Acute, or Chronic, or Acute on Chronic? @ -Acute on chronic Uncomplicated (without systemic symptoms) or Complicated (systemic symptoms)? @ -Complicated Side effects of treatment? @ -none Exacerbation, Progression, or Severe Exacerbation] @ -no Poses a threat to life or bodily function? @ -Yes Diagnosis/symptom? @ -Dehydration Acute, or Chronic, or Acute on Chronic? @ -Acute Uncomplicated (without systemic symptoms) or Complicated (systemic symptoms)? @ -Complicated Side effects of treatment? @ -none Exacerbation, Progression, or Severe Exacerbation] @ -no Poses a threat to life or bodily function? @ -Yes - Lab Data Result diagrams: 07/30/23 19:43 07/30/23 19:43 Lab Results 07/30/23 07/30/23 07/30/23 Range/Units 19:43 19:43 19:43 WBC 13.9 H (3.8-10.6) k/uL RBC 5.00 (4.30-5.90) m/uL Hgb 13.5 (13.0-17.5) gm/dL Hct 42.5 (39.0-53.0) % MCV 85.0 (80.0-100.0) fL MCH 27.1 (25.0-35.0) pg MCHC 31.9 (31.0-37.0) g/dL RDW 16.3 H (11.5-15.5) % Plt Count 334 (150-450) k/uL MPV 7.4 Neutrophils % 88 % Lymphocytes % 8 % Monocytes % 2 % Eosinophils % 0 % Basophils % 0 % Neutrophils # 12.3 H (1.3-7.7) k/uL Lymphocytes # 1.1 (1.0-4.8) k/uL Monocytes # 0.3 (0-1.0) k/uL Eosinophils # 0.0 (0-0.7) k/uL Basophils # 0.0 (0-0.2) k/uL Hypochromasia Slight Anisocytosis Slight PT 10.5 (10.0-12.5) sec INR 1.0 (<1.2) APTT 25.8 (22.0-30.0) sec VBG pH (7.31-7.41) VBG pCO2 (37-51) mmHg VBG HCO3 (24-28) mmol/L Sodium (137-145) mmol/L Potassium (3.5-5.1) mmol/L Chloride (98-107) mmol/L Carbon Dioxide (22-30) mmol/L Anion Gap mmol/L BUN (9-20) mg/dL Creatinine (0.66-1.25) mg/dL Est GFR (CKD-EPI)AfAm (>60 ml/min/1.73 sqM) Est GFR (CKD-EPI)NonAf (>60 ml/min/1.73 sqM) Glucose (74-99) mg/dL Plasma Lactic Acid Remi (0.7-2.0) mmol/L Calcium (8.4-10.2) mg/dL Magnesium (1.6-2.3) mg/dL Total Bilirubin (0.2-1.3) mg/dL AST (17-59) U/L ALT (4-49) U/L Alkaline Phosphatase (38-126) U/L Troponin I (0.000-0.034) ng/mL NT-Pro-B Natriuret Pep pg/mL Total Protein (6.3-8.2) g/dL Albumin (3.5-5.0) g/dL Urine Color Yellow Urine Appearance Clear (Clear) Urine pH 6.0 (5.0-8.0) Ur Specific [place] 1.024 (1.001-1.035) Urine Protein 1+ H (Negative) Urine Glucose (UA) 1+ H (Negative) Urine Ketones Negative (Negative) Urine Blood Small H (Negative) Urine Nitrite Negative (Negative) Urine Bilirubin Negative (Negative) Urine Urobilinogen <2.0 (<2.0) mg/dL Ur Leukocyte Esterase Small H (Negative) Urine RBC 37 H (0-5) /hpf Urine WBC 18 H (0-5) /hpf Ur Squamous Epith Cells <1 (0-4) /hpf Urine Bacteria Rare H (None) /hpf Hyaline Casts 1 (0-2) /lpf Urine Mucus Moderate H (None) /hpf 07/30/23 07/30/23 07/30/23 Range/Units 19:43 19:43 19:43 WBC (3.8-10.6) k/uL RBC (4.30-5.90) m/uL Hgb (13.0-17.5) gm/dL Hct (39.0-53.0) % MCV (80.0-100.0) fL MCH (25.0-35.0) pg MCHC (31.0-37.0) g/dL RDW (11.5-15.5) % Plt Count (150-450) k/uL MPV Neutrophils % % Lymphocytes % % Monocytes % % Eosinophils % % Basophils % % Neutrophils # (1.3-7.7) k/uL Lymphocytes # (1.0-4.8) k/uL Monocytes # (0-1.0) k/uL Eosinophils # (0-0.7) k/uL Basophils # (0-0.2) k/uL Hypochromasia Anisocytosis PT (10.0-12.5) sec INR (<1.2) APTT (22.0-30.0) sec VBG pH (7.31-7.41) VBG pCO2 (37-51) mmHg VBG HCO3 (24-28) mmol/L Sodium 135 L (137-145) mmol/L Potassium 4.8 (3.5-5.1) mmol/L Chloride 96 L (98-107) mmol/L Carbon Dioxide 29 (22-30) mmol/L Anion Gap 10 mmol/L BUN 23 H (9-20) mg/dL Creatinine 0.63 L (0.66-1.25) mg/dL Est GFR (CKD-EPI)AfAm >90 (>60 ml/min/1.73 sqM) Est GFR (CKD-EPI)NonAf >90 (>60 ml/min/1.73 sqM) Glucose 138 H (74-99) mg/dL Plasma Lactic Acid Remi 3.2 H* (0.7-2.0) mmol/L Calcium 9.0 (8.4-10.2) mg/dL Magnesium 1.9 (1.6-2.3) mg/dL Total Bilirubin 0.8 (0.2-1.3) mg/dL AST 32 (17-59) U/L ALT 36 (4-49) U/L Alkaline Phosphatase 107 (38-126) U/L Troponin I 0.016 (0.000-0.034) ng/mL NT-Pro-B Natriuret Pep 911 pg/mL Total Protein 6.6 (6.3-8.2) g/dL Albumin 3.0 L (3.5-5.0) g/dL Urine Color Urine Appearance (Clear) Urine pH (5.0-8.0) Ur Specific [place] (1.001-1.035) Urine Protein (Negative) Urine Glucose (UA) (Negative) Urine Ketones (Negative) Urine Blood (Negative) Urine Nitrite (Negative) Urine Bilirubin (Negative) Urine Urobilinogen (<2.0) mg/dL Ur Leukocyte Esterase (Negative) Urine RBC (0-5) /hpf Urine WBC (0-5) /hpf Ur Squamous Epith Cells (0-4) /hpf Urine Bacteria (None) /hpf Hyaline Casts (0-2) /lpf Urine Mucus (None) /hpf 07/30/23 Range/Units 19:43 WBC (3.8-10.6) k/uL RBC (4.30-5.90) m/uL Hgb (13.0-17.5) gm/dL Hct (39.0-53.0) % MCV (80.0-100.0) fL MCH (25.0-35.0) pg MCHC (31.0-37.0) g/dL RDW (11.5-15.5) % Plt Count (150-450) k/uL MPV Neutrophils % % Lymphocytes % % Monocytes % % Eosinophils % % Basophils % % Neutrophils # (1.3-7.7) k/uL Lymphocytes # (1.0-4.8) k/uL Monocytes # (0-1.0) k/uL Eosinophils # (0-0.7) k/uL Basophils # (0-0.2) k/uL Hypochromasia Anisocytosis PT (10.0-12.5) sec INR (<1.2) APTT (22.0-30.0) sec VBG pH 7.45 H (7.31-7.41) VBG pCO2 44 (37-51) mmHg VBG HCO3 30 H (24-28) mmol/L Sodium (137-145) mmol/L Potassium (3.5-5.1) mmol/L Chloride (98-107) mmol/L Carbon Dioxide (22-30) mmol/L Anion Gap mmol/L BUN (9-20) mg/dL Creatinine (0.66-1.25) mg/dL Est GFR (CKD-EPI)AfAm (>60 ml/min/1.73 sqM) Est GFR (CKD-EPI)NonAf (>60 ml/min/1.73 sqM) Glucose (74-99) mg/dL Plasma Lactic Acid Remi (0.7-2.0) mmol/L Calcium (8.4-10.2) mg/dL Magnesium (1.6-2.3) mg/dL Total Bilirubin (0.2-1.3) mg/dL AST (17-59) U/L ALT (4-49) U/L Alkaline Phosphatase (38-126) U/L Troponin I (0.000-0.034) ng/mL NT-Pro-B Natriuret Pep pg/mL Total Protein (6.3-8.2) g/dL Albumin (3.5-5.0) g/dL Urine Color Urine Appearance (Clear) Urine pH (5.0-8.0) Ur Specific [place] (1.001-1.035) Urine Protein (Negative) Urine Glucose (UA) (Negative) Urine Ketones (Negative) Urine Blood (Negative) Urine Nitrite (Negative) Urine Bilirubin (Negative) Urine Urobilinogen (<2.0) mg/dL Ur Leukocyte Esterase (Negative) Urine RBC (0-5) /hpf Urine WBC (0-5) /hpf Ur Squamous Epith Cells (0-4) /hpf Urine Bacteria (None) /hpf Hyaline Casts (0-2) /lpf Urine Mucus (None) /hpf - EKG Data -: EKG Interpreted by Me EKG Comments: 12-lead Electrocardiogram Interpretation Note EKG was reviewed and interpreted by myself. 12-lead ECG performed at 1916 is interpreted by me as revealing A. fib with RVR at a rate of 158 beats per minute. Left axis deviation. QRS duration is 86 ms, QTc is 347 ms.. There were no ST or T wave abnormalities to suggest myocardial ischemia or injury. R wave progression across the precordium was satisfactory. By my interpretation this EKG is non-diagnostic for acute ischemia. Critical Care Time Critical Care Time: Yes Total Critical Care Time: 63 Disposition Clinical Impression: Hypoxic respiratory failure, Atrial fibrillation with RVR, Dehydration, Pleural effusion, Metastatic cancer Disposition: ADMITTED IP TO THIS HOSP Condition: Serious Referrals: Manuel Lopez MD [Primary Care Provider] - 1-2 days Time of Disposition: 22:30
[2023-07-30] MEDS: METOPROLOL TARTRATE 5 MG/5 ML VIAL IVP SCH ×7 (22:45→23:59)
[2023-07-30] MEDS ORDERED: METOPROLOL TARTRATE 25 MG TAB PO STA (23:02)
[2023-07-30] MEDS ORDERED: NALOXONE 0.4 MG/ML 1 ML VIAL IV PRN (23:15)
[2023-07-31] MEDS ORDERED: ALBUTEROL NEBULIZED 2.5 MG/3 ML INHALATION PRN (00:19)
[2023-07-31] MEDS ORDERED: VANCOMYCIN IV PER PHARMACY 1 EACH MISC MISCELLANE PRN (00:36)
[2023-07-31] MEDS ORDERED: NALOXONE 0.4 MG/ML 1 ML VIAL IV PRN (00:38)
--- NOTE | 2023-07-31 01:00 | P.HPIM ---
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 Was recently in the hospital for similar complaints. Found to have right pleural effusion as well as lung metastasis. Went home for a few days and presents again with similar complaints. Denies any chest pain. Denies any abdominal pain, nausea and vomiting. States symptoms of been ongoing since 11 AM this morning. Last hospitalization he declined hospice. Laboratory studies remarkable for a mild leukocytosis of 13.9, lactic acidosis of 3.2, BNP is minimally elevated. Remainder the labs unremarkable. Chest x- ray shows right pleural effusion that seems larger than previous. Also the metastatic disease. Patient's CT does not reveal PE, but does show soft tissue lesions in the liver as well as a larger pleural effusion and compression atelectasis on the right. He was found to have atrial fibrillation with RVR in the ER, HR up to 170, with hypotension SBP in the 80s. Was treated with IV Cardizem, IV metoprolol and by mouth metoprolol. His heart rate is currently in the 120s to 130s range. Blood pressure stabilized somewhat. When reevaluated in the emergency department he states that he feels very slightly better. He was initiated on BiPAP. Review of Systems Complete review of system performed, pertinent positives per HPI, otherwise negative. Past Medical History Past Medical History: Cancer, COPD, CVA/TIA, GERD/Reflux, Hypertension Additional Past Medical History / Comment(s): S4 colon cancer, lung cancer, bladder cancer, brain cancer History of Any Multi-Drug Resistant Organisms: None Reported Past Surgical History: Bowel Resection, Joint Replacement, Orthopedic Surgery Past Anesthesia/Blood Transfusion Reactions: No Reported Reaction Past Psychological History: No Psychological Hx Reported Smoking Status: Former smoker Past Alcohol Use History: None Reported Past Drug Use History: Marijuana Medications and Allergies Home Medications Medication Instructions Recorded Confirmed Type Atorvastatin [Lipitor] 40 mg PO HS 06/12/23 07/30/23 History Cholecalciferol [Vitamin D3 (25 25 mcg PO DAILY 06/12/23 07/30/23 History Mcg = 1000 Iu)] Cyanocobalamin (Vitamin B-12) 1,000 mcg PO DAILY 06/12/23 07/30/23 History [Vitamin B-12] DULoxetine HCL [Cymbalta] 60 mg PO HS 06/12/23 07/30/23 History HYDROcodone/APAP 10-325MG [[place] 1 tab PO Q6H PRN 06/12/23 07/30/23 History 10-325] Montelukast [Singulair] 10 mg PO HS 06/12/23 07/30/23 History Morphine Sulfate ER [Ms Contin] 30 mg PO BID 06/12/23 07/30/23 History [place]-3 Fatty Acids [[place]-3] 4,000 mg PO DAILY 06/12/23 07/30/23 History Pantoprazole [Protonix] 40 mg PO HS 06/12/23 07/30/23 History Pregabalin [Lyrica] 75 mg PO BID 06/12/23 07/30/23 History Prochlorperazine [Compazine] 10 mg PO Q6H PRN 06/12/23 07/30/23 History Tamsulosin [Flomax] 0.4 mg PO HS 06/12/23 07/30/23 History Albuterol Sulfate [Ventolin HFA] 1 - 2 puff INHALATION RT-Q4H PRN 07/06/23 07/30/23 History guaiFENesin [Mucinex] 1,200 mg PO BID 07/06/23 07/30/23 History polyethylene glycoL 3350 [Miralax] 17 gm PO DAILY 07/06/23 07/30/23 History levETIRAcetam [Keppra] 500 mg PO Q12HR #60 tab 07/10/23 07/30/23 Rx Garlic 1,000 mg PO DAILY 07/24/23 07/30/23 History dexAMETHasone ORAL [Hexadrol] See Taper PO DIRECTED 07/24/23 07/30/23 History Ipratropium-Albuterol Nebulize 3 ml INHALATION RT-QID #0 07/26/23 07/30/23 Rx [Duoneb 0.5 mg-3 mg/3 ml Soln] Metoprolol Tartrate [Lopressor] 25 mg PO BID #60 tab 07/26/23 07/30/23 Rx Allergies Allergy/AdvReac Type Severity Reaction Status Date / Time alprazolam [From Xanax] Allergy Unknown Verified 07/30/23 22:38 scopolamine Allergy Unknown Verified 07/30/23 22:38 metoprolol [From Toprol XL] AdvReac Dizziness Verified 07/30/23 22:38 Physical Exam Vitals: Vital Signs Temp Pulse Resp BP Pulse Ox FiO2 07/30/23 23:25 123 H 20 96/71 96 07/30/23 23:07 138 H 26 H 106/88 95 07/30/23 22:46 131 H 26 H 101/72 94 L 07/30/23 22:42 156 H 28 H 94/79 07/30/23 22:31 158 H 26 H 101/67 95 07/30/23 22:24 144 H 28 H 112/87 94 L 07/30/23 22:09 158 H 96/62 07/30/23 21:57 154 H 26 H 99/67 94 L 07/30/23 21:47 151 H 32 H 73/51 94 L 07/30/23 21:24 168 H 28 H 89/68 94 L 07/30/23 21:07 176 H 32 H 86/66 96 07/30/23 21:00 160 H 26 H 90/49 07/30/23 20:11 147 H 07/30/23 20:02 50 07/30/23 20:00 120 H 36 H 122/88 94 L 07/30/23 19:33 35 07/30/23 18:55 97 F L 139 H 26 H 129/99 98 Intake and Output 07/30/23 07/30/23 07/31/23 14:59 22:59 06:59 Intake Total 4.25 Balance 4.25 Intake: Intake, IV Titration 4.25 Amount Diltiazem 125 mg In 4.25 Sodium Chloride 0.9% 100 ml @ 5 MG/HR 5 mls/hr IV .Q24H [facility] Rx#:[id number] Other: Weight 106.141 kg Constitutional: Moderate to severe respiratory distress Eyes:Anicteric sclerae, moist conjunctiva, no lid-lag, PERRLA, ENMT: Oropharynx clear, no erythema, exudates Neck: Supple, FROM, no masses, or JVD, No carotid bruits, No thyromegaly Lungs: Bilateral rhonchi and wheezes positive accessory muscle use. Increased respiratory effort Cardiovascular: Tachycardic, irregularly irregular, No murmurs, gallops, or rubs, No peripheral edema Abdominal: Soft, Nontender, no guarding, rebound or rigidity, Normoactive bowel sounds, No hepatomegaly, No splenomegaly, No palpable mass Skin: Normal temperature, tone, texture, turgor, no induration, No subcutaneous nodules, No rash, lesions, No ulcers Extremities: No digital cyanosis, No clubbing, Pedal pulses intact and symmetrical, Radial pulses intact and symmetrical, No calf tenderness Psychiatric: Alert and oriented to person, place and time, appropriate affect, intact judgement Neuro: Muscles Strength 5/5 in all 4 extremities, Sensation to light touch grossly present throughout, Cranial nerves II-XII grossly intact, no focal sensory deficits Results CBC & Chem 7: 07/30/23 19:43 07/30/23 19:43 Labs: Abnormal Lab Results - Last 24 Hours (Table) 07/30/23 07/30/23 07/30/23 Range/Units 19:43 19:43 19:43 WBC 13.9 H (3.8-10.6) k/uL RDW 16.3 H (11.5-15.5) % Neutrophils # 12.3 H (1.3-7.7) k/uL VBG pH (7.31-7.41) VBG HCO3 (24-28) mmol/L Sodium 135 L (137-145) mmol/L Chloride 96 L (98-107) mmol/L BUN 23 H (9-20) mg/dL Creatinine 0.63 L (0.66-1.25) mg/dL Glucose 138 H (74-99) mg/dL Plasma Lactic Acid Remi (0.7-2.0) mmol/L Albumin 3.0 L (3.5-5.0) g/dL Urine Protein 1+ H (Negative) Urine Glucose (UA) 1+ H (Negative) Urine Blood Small H (Negative) Ur Leukocyte Esterase Small H (Negative) Urine RBC 37 H (0-5) /hpf Urine WBC 18 H (0-5) /hpf Urine Bacteria Rare H (None) /hpf Urine Mucus Moderate H (None) /hpf 07/30/23 07/30/23 Range/Units 19:43 19:43 WBC (3.8-10.6) k/uL RDW (11.5-15.5) % Neutrophils # (1.3-7.7) k/uL VBG pH 7.45 H (7.31-7.41) VBG HCO3 30 H (24-28) mmol/L Sodium (137-145) mmol/L Chloride (98-107) mmol/L BUN (9-20) mg/dL Creatinine (0.66-1.25) mg/dL Glucose (74-99) mg/dL Plasma Lactic Acid Remi 3.2 H* (0.7-2.0) mmol/L Albumin (3.5-5.0) g/dL Urine Protein (Negative) Urine Glucose (UA) (Negative) Urine Blood (Negative) Ur Leukocyte Esterase (Negative) Urine RBC (0-5) /hpf Urine WBC (0-5) /hpf Urine Bacteria (None) /hpf Urine Mucus (None) /hpf Assessment and Plan Plan: Acute on chronic hypoxic respiratory failure Acute COPD exacerbation Pulmonary consulted on BiPAP Admit to ICU O2 to keep sats above 92% Likely secondary to right pleural effusion with lung metastases, cannot rule out healthcare associated pneumonia We'll initiate steroids, antibiotics and DuoNeb's Blood cultures afib with RVR cardizem drip trops slightly elevated, possibly demand ischemia type II secondary to afib with RVR, will repeat Consult cardio stage 4 colon cancer with mets to liver, lung and brain brain mets , with suspected seizure like activity continue decadrone 4mg po qid continue keppra 500 mg po bid DVT PPX Lovenox subcu CODE STATUS discussed with patient, he wants everything done at this point. Full code. Admit to inpatient, expected length of stay more than 2 midnights
[2023-07-31] MEDS ORDERED: VANCOMYCIN 2,000 MG in SODIUM CHLORIDE 0.9% 500 ML 500 ML IVPB ONE (02:00)
[2023-07-31] MEDS: DILTIAZEM 125 MG in SODIUM CHLORIDE 0.9% 100 ML IV SCH (02:15)
[2023-07-31] MEDS: CEFEPIME 1 GM in SODIUM CHLORIDE 0.9% 50 ML IVPB SCH ×2 (03:21→17:36)
[2023-07-31] MEDS ORDERED: AMIODARONE 450 MG in DEXTROSE 5% IN WATER 250 ML IV SCH ×2 (03:30)
[2023-07-31] MEDS: methylPREDNISolone SOD SUCCI 125 MG/2 ML VIAL IV SCH ×4 (05:58→23:52)
[2023-07-31] MEDS: IPRATROPIUM-ALBUTEROL 3 ML NEB INHALATION SCH ×4 (07:56→22:03)
--- NOTE | 2023-07-31 08:59 | US ---
EXAMINATION TYPE: US chest DATE OF EXAM: 07/31/2023 COMPARISON: Chest x-ray one day earlier. CTA chest of 6 days earlier CLINICAL INDICATION: Male, 72 years old with history of Markings for thoracentesis by pulmonary staff ; TECHNIQUE: Targeted ultrasound of the posterior lower bilateral hemithoraces EXAM MEASUREMENTS: Right Pleural Effusion pocket size: 13.3 cm Right skin surface to fluid distance: 3.5 cm Left Pleural Effusion pocket size: 0.0 cm Right side marked for possible thoracentesis outside the dept. Possible right anterior lesion = 4.3 cm Left side NOT marked for possible thoracentesis outside the dept due to no fluid visualized. Pulmonologists are able to review the images in the patient?s EMR. IMPRESSIONS: No significant left-sided pleural effusion. Small right basilar pleural effusion with pl eural-based masses redemonstrated correlating with most recent CT.
[2023-07-31] MEDS ORDERED: METOPROLOL TARTRATE 25 MG TAB PO SCH (09:00)
[2023-07-31] MEDS: levETIRAcetam 500 MG TAB PO SCH ×2 (09:11→21:09)
[2023-07-31] MEDS: METOPROLOL TARTRATE 50 MG TAB PO SCH ×3 (09:11→21:09)
[2023-07-31] MEDS: AMIODARONE 200 MG TAB PO SCH ×2 (09:11→21:09)
[2023-07-31 10:39] LABS: African American GFR (CKD) >90 (>60 ml/min/1.73 sqM); Anion Gap 10 mmol/L; Blood Urea Nitrogen 24 mg/dL (9-20); Calcium 8.8 mg/dL (8.4-10.2); Carbon Dioxide 25 mmol/L (22-30); Chloride 102 mmol/L (98-107); Glucose 168 mg/dL (74-99); Non-African American GFR(CKD) >90 (>60 ml/min/1.73 sqM); Potassium 4.7 mmol/L (3.5-5.1); Sodium 137 mmol/L (137-145)
[2023-07-31 10:44] LABS: Anisocytosis Slight; Basophils % (A) 0 %; Eosinophils % (A) 0 %; HCT 39.9 % (39.0-53.0); HGB 12.1 gm/dL (13.0-17.5); Hypochromasia Marked; Lymphocytes # (A) 0.6 k/uL (1.0-4.8); Lymphocytes % (A) 5 %; MCH 26.6 pg (25.0-35.0); MCHC 30.3 g/dL (31.0-37.0); MCV 87.8 fL (80.0-100.0); Mean Platelet Volume 8.3; Monocytes # (A) 0.2 k/uL (0-1.0); Monocytes % (A) 2 %; Neutrophils # (A) 10.2 k/uL (1.3-7.7); Neutrophils % (A) 92 %; Platelet Count 289 k/uL (150-450); RBC 4.55 m/uL (4.30-5.90); RDW 16.3 % (11.5-15.5); WBC 11.1 k/uL (3.8-10.6)
[2023-07-31] MEDS ORDERED: VANCOMYCIN 2,000 MG in SODIUM CHLORIDE 0.9% 500 ML 500 ML IVPB SCH ×2 (12:00→16:00)
[2023-07-31] MEDS: HYDROcodone/APAP 10-325MG 1 EACH TAB PO PRN ×2 (12:13→18:15)
--- NOTE | 2023-07-31 12:53 | P.GSCN ---
History of Present Illness Consult date: 07/31/23 Reason for Consult: need for pleurx Requesting physician: Leonor Jarvis History of present illness: This is a 72-year-old gentleman who follows outpatient with Dr. Chanel for primary care, as well as Dr. Jones for pulmonology, and an oncologist out of [facility]. He has a previous medical history of colon cancer with metastasis to the lung and brain, bladder cancer with previous resection, hypertension, hyperl ipidemia, CVA, COPD, previous tobacco dependence and marijuana use. He has been hospitalized several times for shortness of breath and undergone right-sided thoracentesis more than once. We were consulted back in May for pleurx catheter placement, but the patient had been recently drained and did not have enough fluid present to safely place pleurx. He was discharged and was to follow up with Dr. Nova in the office. He didn't make it to his appointment as he was rehospitalized. He was treated and released. Unfortunately he has had progressively increased shortness of breath presented back to [facility] emergency room for evaluation and treatment. Chest x-ray demonstrated right- sided pleural effusion. The patient was admitted for evaluation and treatment with consultation placed to pulmonology. Ultrasound of the chest was completed. Consultation was then placed to cardiothoracic surgery for Pleurx catheter placement. Review of Systems Review of systems was completed and was negative except as noted - Respiratory Reports dyspnea Past Medical History Past Medical History: Cancer, COPD, CVA/TIA, GERD/Reflux, Hypertension Additional Past Medical History / Comment(s): S4 colon cancer, lung cancer, bladder cancer, brain cancer; recurrent right sided pleural effusion History of Any Multi-Drug Resistant Organisms: None Reported Past Surgical History: Bowel Resection, Joint Replacement, Orthopedic Surgery Additional Past Surgical History / Comment(s): repeated right sided thoracentesis Past Anesthesia/Blood Transfusion Reactions: No Reported Reaction Past Psychological History: No Psychological Hx Reported Smoking Status: Former smoker Past Alcohol Use History: None Reported Past Drug Use History: Marijuana Medications and Allergies Home Medications Medication Instructions Recorded Confirmed Type Atorvastatin [Lipitor] 40 mg PO HS 06/12/23 07/30/23 History Cholecalciferol [Vitamin D3 (25 25 mcg PO DAILY 06/12/23 07/30/23 History Mcg = 1000 Iu)] Cyanocobalamin (Vitamin B-12) 1,000 mcg PO DAILY 06/12/23 07/30/23 History [Vitamin B-12] DULoxetine HCL [Cymbalta] 60 mg PO HS 06/12/23 07/30/23 History HYDROcodone/APAP 10-325MG [[place] 1 tab PO Q6H PRN 06/12/23 07/30/23 History 10-325] Montelukast [Singulair] 10 mg PO HS 06/12/23 07/30/23 History Morphine Sulfate ER [Ms Contin] 30 mg PO BID 06/12/23 07/30/23 History [place]-3 Fatty Acids [[place]-3] 4,000 mg PO DAILY 06/12/23 07/30/23 History Pantoprazole [Protonix] 40 mg PO HS 06/12/23 07/30/23 History Pregabalin [Lyrica] 75 mg PO BID 06/12/23 07/30/23 History Prochlorperazine [Compazine] 10 mg PO Q6H PRN 06/12/23 07/30/23 History Tamsulosin [Flomax] 0.4 mg PO HS 06/12/23 07/30/23 History Albuterol Sulfate [Ventolin HFA] 1 - 2 puff INHALATION RT-Q4H PRN 07/06/23 07/30/23 History guaiFENesin [Mucinex] 1,200 mg PO BID 07/06/23 07/30/23 History polyethylene glycoL 3350 [Miralax] 17 gm PO DAILY 07/06/23 07/30/23 History levETIRAcetam [Keppra] 500 mg PO Q12HR #60 tab 07/10/23 07/30/23 Rx Garlic 1,000 mg PO DAILY 07/24/23 07/30/23 History dexAMETHasone ORAL [Hexadrol] See Taper PO DIRECTED 07/24/23 07/30/23 History Ipratropium-Albuterol Nebulize 3 ml INHALATION RT-QID #0 07/26/23 07/30/23 Rx [Duoneb 0.5 mg-3 mg/3 ml Soln] Metoprolol Tartrate [Lopressor] 25 mg PO BID #60 tab 07/26/23 07/30/23 Rx Allergies Allergy/AdvReac Type Severity Reaction Status Date / Time alprazolam [From Xanax] Allergy Unknown Verified 07/30/23 22:38 scopolamine Allergy Unknown Verified 07/30/23 22:38 metoprolol [From Toprol XL] AdvReac Dizziness Verified 07/30/23 22:38 Surgical - Exam Vital Signs Temp Pulse Resp BP Pulse Ox 97 F L 139 H 26 H 129/99 98 07/30/23 18:55 07/30/23 18:55 07/30/23 18:55 07/30/23 18:55 07/30/23 18:55 CONSTITUTIONAL: Awake and alert, appears comfortable, cooperative, well- developed, well-nourished, no pain, no acute distress EYES: Pupils equal, round, reactive to light, normal ocular movement ENT: Moist mucous membranes without oral lesions present NECK: No masses, no bruits, trachea midline RESPIRATORY: Lungs sounds diminished with expiratory wheezes heard bilaterally. Respirations even, nonlabored. Currently on 3 L nasal cannula with oxygen saturation 93%. Strong cough CARDIOVASCULAR: S1, S2 present. Regular rate and rhythm. Palpable peripheral pulses bilaterally. No edema present GASTROINTESTINAL: Abdomen soft, nontender, nondistended without masses or organomegaly noted. There is no rebound or guarding present. Active bowel sounds present 4 quadrants. GENITOURINARY: Deferred INTEGUMENTARY: Skin is warm and dry NEUROLOGIC: Cranial nerves II through XII intact, normal coordination, no obvious motor or sensory deficits, speech is normal MUSKULOSKELETAL: Able to move all extremities, strength equal bilaterally, normal posture PSYCHIATRIC: Alert and oriented to person place and time, appropriate affect, intact judgment and insight Results - Labs 07/31/23 06:44 07/31/23 06:44 Abnormal Lab Results - Last 24 Hours (Table) 07/30/23 07/30/23 07/30/23 Range/Units 19:43 19:43 19:43 WBC 13.9 H (3.8-10.6) k/uL Hgb (13.0-17.5) gm/dL MCHC (31.0-37.0) g/dL RDW 16.3 H (11.5-15.5) % Neutrophils # 12.3 H (1.3-7.7) k/uL Lymphocytes # (1.0-4.8) k/uL VBG pH (7.31-7.41) VBG HCO3 (24-28) mmol/L Sodium 135 L (137-145) mmol/L Chloride 96 L (98-107) mmol/L BUN 23 H (9-20) mg/dL Creatinine 0.63 L (0.66-1.25) mg/dL Glucose 138 H (74-99) mg/dL Plasma Lactic Acid Remi (0.7-2.0) mmol/L Troponin I (0.000-0.034) ng/mL Albumin 3.0 L (3.5-5.0) g/dL Procalcitonin (0.02-0.09) ng/mL Urine Protein 1+ H (Negative) Urine Glucose (UA) 1+ H (Negative) Urine Blood Small H (Negative) Ur Leukocyte Esterase Small H (Negative) Urine RBC 37 H (0-5) /hpf Urine WBC 18 H (0-5) /hpf Urine Bacteria Rare H (None) /hpf Urine Mucus Moderate H (None) /hpf 07/30/23 07/30/23 07/30/23 Range/Units 19:43 19:43 23:47 WBC (3.8-10.6) k/uL Hgb (13.0-17.5) gm/dL MCHC (31.0-37.0) g/dL RDW (11.5-15.5) % Neutrophils # (1.3-7.7) k/uL Lymphocytes # (1.0-4.8) k/uL VBG pH 7.45 H (7.31-7.41) VBG HCO3 30 H (24-28) mmol/L Sodium (137-145) mmol/L Chloride (98-107) mmol/L BUN (9-20) mg/dL Creatinine (0.66-1.25) mg/dL Glucose (74-99) mg/dL Plasma Lactic Acid Remi 3.2 H* (0.7-2.0) mmol/L Troponin I 0.157 H* (0.000-0.034) ng/mL Albumin (3.5-5.0) g/dL Procalcitonin (0.02-0.09) ng/mL Urine Protein (Negative) Urine Glucose (UA) (Negative) Urine Blood (Negative) Ur Leukocyte Esterase (Negative) Urine RBC (0-5) /hpf Urine WBC (0-5) /hpf Urine Bacteria (None) /hpf Urine Mucus (None) /hpf 07/31/23 07/31/23 07/31/23 Range/Units 00:42 03:10 03:10 WBC (3.8-10.6) k/uL Hgb (13.0-17.5) gm/dL MCHC (31.0-37.0) g/dL RDW (11.5-15.5) % Neutrophils # (1.3-7.7) k/uL Lymphocytes # (1.0-4.8) k/uL VBG pH (7.31-7.41) VBG HCO3 (24-28) mmol/L Sodium (137-145) mmol/L Chloride (98-107) mmol/L BUN (9-20) mg/dL Creatinine (0.66-1.25) mg/dL Glucose (74-99) mg/dL Plasma Lactic Acid Remi 2.4 H* (0.7-2.0) mmol/L Troponin I 0.156 H* (0.000-0.034) ng/mL Albumin (3.5-5.0) g/dL Procalcitonin 0.48 H (0.02-0.09) ng/mL Urine Protein (Negative) Urine Glucose (UA) (Negative) Urine Blood (Negative) Ur Leukocyte Esterase (Negative) Urine RBC (0-5) /hpf Urine WBC (0-5) /hpf Urine Bacteria (None) /hpf Urine Mucus (None) /hpf 07/31/23 07/31/23 07/31/23 Range/Units 06:44 06:44 06:44 WBC 11.1 H (3.8-10.6) k/uL Hgb 12.1 L (13.0-17.5) gm/dL MCHC 30.3 L (31.0-37.0) g/dL RDW 16.3 H (11.5-15.5) % Neutrophils # 10.2 H (1.3-7.7) k/uL Lymphocytes # 0.6 L (1.0-4.8) k/uL VBG pH (7.31-7.41) VBG HCO3 (24-28) mmol/L Sodium (137-145) mmol/L Chloride (98-107) mmol/L BUN 24 H (9-20) mg/dL Creatinine 0.59 L (0.66-1.25) mg/dL Glucose 168 H (74-99) mg/dL Plasma Lactic Acid Remi 2.3 H* (0.7-2.0) mmol/L Troponin I (0.000-0.034) ng/mL Albumin (3.5-5.0) g/dL Procalcitonin (0.02-0.09) ng/mL Urine Protein (Negative) Urine Glucose (UA) (Negative) Urine Blood (Negative) Ur Leukocyte Esterase (Negative) Urine RBC (0-5) /hpf Urine WBC (0-5) /hpf Urine Bacteria (None) /hpf Urine Mucus (None) /hpf 07/31/23 Range/Units 09:38 WBC (3.8-10.6) k/uL Hgb (13.0-17.5) gm/dL MCHC (31.0-37.0) g/dL RDW (11.5-15.5) % Neutrophils # (1.3-7.7) k/uL Lymphocytes # (1.0-4.8) k/uL VBG pH (7.31-7.41) VBG HCO3 (24-28) mmol/L Sodium (137-145) mmol/L Chloride (98-107) mmol/L BUN (9-20) mg/dL Creatinine (0.66-1.25) mg/dL Glucose (74-99) mg/dL Plasma Lactic Acid Remi 3.9 H* (0.7-2.0) mmol/L Troponin I (0.000-0.034) ng/mL Albumin (3.5-5.0) g/dL Procalcitonin (0.02-0.09) ng/mL Urine Protein (Negative) Urine Glucose (UA) (Negative) Urine Blood (Negative) Ur Leukocyte Esterase (Negative) Urine RBC (0-5) /hpf Urine WBC (0-5) /hpf Urine Bacteria (None) /hpf Urine Mucus (None) /hpf Diabetes panel 07/30/23 07/31/23 Range/Units 19:43 06:44 Sodium 135 L 137 (137-145) mmol/L Potassium 4.8 4.7 (3.5-5.1) mmol/L Chloride 96 L 102 (98-107) mmol/L Carbon Dioxide 29 25 (22-30) mmol/L BUN 23 H 24 H (9-20) mg/dL Creatinine 0.63 L 0.59 L (0.66-1.25) mg/dL Glucose 138 H 168 H (74-99) mg/dL Calcium 9.0 8.8 (8.4-10.2) mg/dL AST 32 (17-59) U/L ALT 36 (4-49) U/L Alkaline Phosphatase 107 (38-126) U/L Total Protein 6.6 (6.3-8.2) g/dL Albumin 3.0 L (3.5-5.0) g/dL Calcium panel 07/30/23 07/31/23 Range/Units 19:43 06:44 Calcium 9.0 8.8 (8.4-10.2) mg/dL Albumin 3.0 L (3.5-5.0) g/dL Pituitary panel 07/30/23 07/31/23 Range/Units 19:43 06:44 Sodium 135 L 137 (137-145) mmol/L Potassium 4.8 4.7 (3.5-5.1) mmol/L Chloride 96 L 102 (98-107) mmol/L Carbon Dioxide 29 25 (22-30) mmol/L BUN 23 H 24 H (9-20) mg/dL Creatinine 0.63 L 0.59 L (0.66-1.25) mg/dL Glucose 138 H 168 H (74-99) mg/dL Calcium 9.0 8.8 (8.4-10.2) mg/dL Adrenal panel 07/30/23 07/31/23 Range/Units 19:43 06:44 Sodium 135 L 137 (137-145) mmol/L Potassium 4.8 4.7 (3.5-5.1) mmol/L Chloride 96 L 102 (98-107) mmol/L Carbon Dioxide 29 25 (22-30) mmol/L BUN 23 H 24 H (9-20) mg/dL Creatinine 0.63 L 0.59 L (0.66-1.25) mg/dL Glucose 138 H 168 H (74-99) mg/dL Calcium 9.0 8.8 (8.4-10.2) mg/dL Total Bilirubin 0.8 (0.2-1.3) mg/dL AST 32 (17-59) U/L ALT 36 (4-49) U/L Alkaline Phosphatase 107 (38-126) U/L Total Protein 6.6 (6.3-8.2) g/dL Albumin 3.0 L (3.5-5.0) g/dL - Imaging Chest x-ray: report reviewed, image reviewed CT scan - chest: report reviewed, image reviewed EKG: image reviewed Assessment and Plan Assessment: Recurrent right-sided pleural effusion, last drained 07/07/23 for 2 L exudative fluid Shortness of breath secondary to above History of colon cancer with metastasis to the lung and brain History of bladder cancer with previous resection Hypertension Hyperlipidemia CVA COPD Previous tobacco dependence Marijuana use Plan: The patient was seen and examined at the bedside in the ER with Dr. Nova. Chart/diagnostics reviewed. We discussed placement of Pleurx cathter for home drainage, this is considered palliative not curative. The usual perioperative course was discussed with the patient, risks and benefits reviewed, questions answered, the patient does consent. He is currently NPO awaiting OR time for Pleurx catheter placement by Dr. Nova or Dr. Gomez. Home care to be ordered for teaching and Pleurx drainage. Pleurx catheter discharge instructions placed on discharge plan. Once Pleurx is placed patient may be discharged home from our standpoint when okay with other services. Medical management of other comorbidities per internal medicine, pulmonology. Please call us with any further questions. Thank you Dr. Jarvis for this consult. I have personally seen and examined the patient, performed the documentation and the assessment and plan as written. Number of minutes spent on the visit: 30. Silvia Vigil NP-Alejo Attending Addendum: Pt seen and evaluated with the DIRECTOR PACKAGING above. Agree with her assessment and plan. I spent 35 minutes reviewing the data and discussing findings with the patient and care team.
[2023-07-31] MEDS ORDERED: LACTATED RINGERS 1,000 ML IV ONE (13:48)
--- NOTE | 2023-07-31 13:57 | P.PN ---
Subjective Progress Note Date: 07/31/23 72-year-old male presents stage IV metastatic colon cancer with known metastases to liver, lung, and brain with recurrent right-sided pleural effusions, hx of a- fib not on anticoagulation due to low risk of stroke and high risk of bleeding with metastatic disease, patient is well known to our group with 4 hospitalizations in the last 2-3 months presents to the ER with difficulty in breathing, tachycardia. Was recently in the hospital for similar complaints. Found to have right pleural effusion as well as lung metastasis. In the ED, he underwent extensive evaluation. Tachypneic with RR of 36. Tachcardic with HR in the 160-170s. Required BiPAP to maintain O2 saturation greater than 92%. BP is low as 73/51. CBC showed RBC count 13.9 with neutrophilia. Coagulation panel within normal limits. VBG pH 7.45, pCO2 44. CMP sodium 135, chloride 96, BUN 23, creatinine 0.63, glucose 138, albumin 3. Lactic acid 3.2. Troponin 0.157. BNP 911. Urinalysis small leukocyte esterase. Chest x-ray showed right scattered airspace opacities with right pleural effusion. CTA chest enlarging right pleural effusion with increasing atelectasis, no PE, pulmonary metastatic disease, liver lesions. EKG atrial fibrillation with RVR ventricular rate 158. Patient was admitted for further management and workup. Started on Amiodarone and Cardizem drip in the ED for A-Fib with RVR with hypotension. Started on Empiric antibiotics with Vancomycin and Cefepime. Pulmonology and Cardiology consulted. Decision made to admit to ICU. 07/31 Patient was seen. Please refer to H&P for full documentation. Currently on 3L NC. Plans for PleurX catheter. General: non toxic, no distress, appears at stated age Derm: warm, dry Head: atraumatic, normocephalic, symmetric Eyes: EOMI, no lid lag, anicteric sclera Lungs: no accessory muscle use Psych: Alert, oriented, appropriate affect Patient has a recurrently right pleural effusion in the setting of metastatic lung CA with severe exacerbation or progression of disease which poses a threat to life or bodily function. Acute hypoxic respiratory failure: Currently weaned down to nasal cannula. DuoNeb scheduled. Solumedrol 60 mg IV Q6H. Pulmonology consulted for thoracent esis. CT surgery consulted for possible Pleurx cathter. Large right pleural effuion: Managment as above. Atrial fibrillation with RVR: Cardizem and Amiodarone drip discontinued by Cardiology. Started on Metoprolol 50 mg PO TID and Amiodarone 200 mg PO BID. Sepsis with concerns of PNA: Vancomycin dosed per pharmacy and Cefepime 1g IV BID. Procal ordered. BCx ordered. Troponin elevation: Demand ischemia from A-Fib with RVR. Flat. ACS ruled out. Cardiology on board. Lactic acidosis: In the setting of underlying malignancy. Trend until negative. CODE STATUS: FULL CODE. DVT Prophylaxis: SCDs for now given possible procedure. GI Prophylaxis: Protonix PO Designated medical POA if patient is not able to make medical decisions for themselves: Objective - Vital Signs Vital signs: Vital Signs Temp 97 F L 07/30/23 18:55 Pulse 88 07/31/23 08:24 Resp 19 07/31/23 06:00 BP 113/75 07/31/23 06:00 Pulse Ox 93 L 07/31/23 08:23 FiO2 50 07/31/23 07:57 Intake & Output 07/30/23 07/31/23 07/31/23 18:59 06:59 18:59 Intake Total 4.25 Balance 4.25 Weight 106.141 kg Intake: Intake, IV Titration 4.25 Amount Diltiazem 125 mg In 4.25 Sodium Chloride 0.9% 100 ml @ 5 MG/HR 5 mls/hr IV .Q24H [facility] Rx#:[id number] - Labs CBC & Chem 7: 07/31/23 06:44 07/31/23 06:44 Labs: Abnormal Lab Results - Last 24 Hours (Table) 07/30/23 07/30/23 07/30/23 Range/Units 19:43 19:43 19:43 WBC 13.9 H (3.8-10.6) k/uL RDW 16.3 H (11.5-15.5) % Neutrophils # 12.3 H (1.3-7.7) k/uL VBG pH (7.31-7.41) VBG HCO3 (24-28) mmol/L Sodium 135 L (137-145) mmol/L Chloride 96 L (98-107) mmol/L BUN 23 H (9-20) mg/dL Creatinine 0.63 L (0.66-1.25) mg/dL Glucose 138 H (74-99) mg/dL Plasma Lactic Acid Remi (0.7-2.0) mmol/L Troponin I (0.000-0.034) ng/mL Albumin 3.0 L (3.5-5.0) g/dL Procalcitonin (0.02-0.09) ng/mL Urine Protein 1+ H (Negative) Urine Glucose (UA) 1+ H (Negative) Urine Blood Small H (Negative) Ur Leukocyte Esterase Small H (Negative) Urine RBC 37 H (0-5) /hpf Urine WBC 18 H (0-5) /hpf Urine Bacteria Rare H (None) /hpf Urine Mucus Moderate H (None) /hpf 07/30/23 07/30/23 07/30/23 Range/Units 19:43 19:43 23:47 WBC (3.8-10.6) k/uL RDW (11.5-15.5) % Neutrophils # (1.3-7.7) k/uL VBG pH 7.45 H (7.31-7.41) VBG HCO3 30 H (24-28) mmol/L Sodium (137-145) mmol/L Chloride (98-107) mmol/L BUN (9-20) mg/dL Creatinine (0.66-1.25) mg/dL Glucose (74-99) mg/dL Plasma Lactic Acid Remi 3.2 H* (0.7-2.0) mmol/L Troponin I 0.157 H* (0.000-0.034) ng/mL Albumin (3.5-5.0) g/dL Procalcitonin (0.02-0.09) ng/mL Urine Protein (Negative) Urine Glucose (UA) (Negative) Urine Blood (Negative) Ur Leukocyte Esterase (Negative) Urine RBC (0-5) /hpf Urine WBC (0-5) /hpf Urine Bacteria (None) /hpf Urine Mucus (None) /hpf 07/31/23 07/31/23 07/31/23 Range/Units 00:42 03:10 03:10 WBC (3.8-10.6) k/uL RDW (11.5-15.5) % Neutrophils # (1.3-7.7) k/uL VBG pH (7.31-7.41) VBG HCO3 (24-28) mmol/L Sodium (137-145) mmol/L Chloride (98-107) mmol/L BUN (9-20) mg/dL Creatinine (0.66-1.25) mg/dL Glucose (74-99) mg/dL Plasma Lactic Acid Remi 2.4 H* (0.7-2.0) mmol/L Troponin I 0.156 H* (0.000-0.034) ng/mL Albumin (3.5-5.0) g/dL Procalcitonin 0.48 H (0.02-0.09) ng/mL Urine Protein (Negative) Urine Glucose (UA) (Negative) Urine Blood (Negative) Ur Leukocyte Esterase (Negative) Urine RBC (0-5) /hpf Urine WBC (0-5) /hpf Urine Bacteria (None) /hpf Urine Mucus (None) /hpf 07/31/23 Range/Units 06:44 WBC (3.8-10.6) k/uL RDW (11.5-15.5) % Neutrophils # (1.3-7.7) k/uL VBG pH (7.31-7.41) VBG HCO3 (24-28) mmol/L Sodium (137-145) mmol/L Chloride (98-107) mmol/L BUN (9-20) mg/dL Creatinine (0.66-1.25) mg/dL Glucose (74-99) mg/dL Plasma Lactic Acid Remi 2.3 H* (0.7-2.0) mmol/L Troponin I (0.000-0.034) ng/mL Albumin (3.5-5.0) g/dL Procalcitonin (0.02-0.09) ng/mL Urine Protein (Negative) Urine Glucose (UA) (Negative) Urine Blood (Negative) Ur Leukocyte Esterase (Negative) Urine RBC (0-5) /hpf Urine WBC (0-5) /hpf Urine Bacteria (None) /hpf Urine Mucus (None) /hpf
--- NOTE | 2023-07-31 14:12 | P.CRDCN ---
History of Present Illness Consult date: 07/31/23 Consult reason: atrial fibrillation (w RVR) History of present illness: History of present illness: This is a 72 year old male patient with past medical history of stage IV metastatic colon cancer known have metastases to the liver and lung and brain with recurrent right-sided pleural effusion, history of paroxysmal atrial fibrillation not on anticoagulation due to metastatic disease. We have been asked to evaluate the patient for A. fib with RVR. Patient presented to the emergency center due to difficulty in breathing. Patient is seen today in the emergency center waiting for a bed on the cardiac stepdown unit. Consults also in place for cardiothoracic surgery regarding Pleurx as well as pulmonary medicine is on consult. EKG atrial fibrillation with ventricular rate of 158. Chest x-ray: Right lower lobe scattered airspace opacities compatible with known malignancy. Small right pleural effusion. CTA of the chest reveals enlarging right pleural effusion with increasing atelectasis in the lower right lung. No pulmonary embolus. Pulmonary metastatic disease. New liver lesions. Chest ultrasound revealed right pleural effusion pocket 13.3 and left 0. WBC 11.1, hemoglobin 12.1, platelet count 289. Electrolytes are normal. BUN 24 creatinine 0.59. Lactic acid most recent is 2.7. Troponin 0.016, 0.157, 0.156. ProBNP 911. Pro-calcitonin 0.48. Urinalysis positive for UTI. Home cardiac medications: Atorvastatin 40 mg at bedtime, Lopressor 25 mg twice daily Echocardiogram performed 07/07/2023 revealed EF 50-55% with mild concentric left hypertrophy. Review Of Systems: At the time of my exam: CONSTITUTIONAL: Denies fever or chills. CARDIOVASCULAR: Denies chest pain, Denies shortness of breath, no orthopnea, PND or palpitations. RESPIRATORY: Denies cough. GASTROINTESTINAL: Denies abdominal pain, diarrhea, constipation, nausea or vomiting. MUSCULOSKELETAL: Denies myalgias. NEUROLOGIC: Denies numbness, tingling or weakness. ENDOCRINE: Denies fatigue, weight change, polydipsia or polyurina. GENITOURINARY: Denies burning, hematuria or urgency with micturation. HEMATOLOGIC: Denies history of anemia or bleeding. Physical examination: Gen: This is a 72-year-old male resting and appears to be in no acute resp iratory distress. VS: reviewed HEENT: Head is atraumatic, normocephalic. Pupils equal, round. Sclerae is anicteric. NECK: Supple. No JVD. LUNGS: Diminished bilaterally. No intercostal retractions. HEART: Regular rate and rhythm. No murmur. ABDOMEN: Soft No tenderness. EXTREMITIES: No pedal edema. No calf tenderness. NEUROLOGICAL: Patient is awake, alert and oriented x3. Assessment: Atrial fibrillation with RVR, paroxysmal Elevated troponin secondary to A. fib with RVR History of metastatic colon cancer Right pleural effusion with plan for Pleurx catheter Plan: Resume patient's home cardiac medications Increase metoprolol to 75 mg twice daily Start patient on amiodarone 200 mg twice daily No need to repeat echocardiogram Obtain 2-D echocardiogram and Doppler study to assess cardiac structure and function Further recommendations to follow based upon clinical course Thank you kindly for this consultation. Nurse practitioner note has been reviewed, I agree with documented findings and plan of care. Patient was seen and examined. Past Medical History Past Medical History: Cancer, COPD, CVA/TIA, GERD/Reflux, Hypertension Additional Past Medical History / Comment(s): S4 colon cancer, lung cancer, bladder cancer, brain cancer History of Any Multi-Drug Resistant Organisms: None Reported Past Surgical History: Bowel Resection, Joint Replacement, Orthopedic Surgery Past Anesthesia/Blood Transfusion Reactions: No Reported Reaction Past Psychological History: No Psychological Hx Reported Smoking Status: Former smoker Past Alcohol Use History: None Reported Past Drug Use History: Marijuana Medications and Allergies Home Medications Medication Instructions Recorded Confirmed Type Atorvastatin [Lipitor] 40 mg PO HS 06/12/23 07/30/23 History Cholecalciferol [Vitamin D3 (25 25 mcg PO DAILY 06/12/23 07/30/23 History Mcg = 1000 Iu)] Cyanocobalamin (Vitamin B-12) 1,000 mcg PO DAILY 06/12/23 07/30/23 History [Vitamin B-12] DULoxetine HCL [Cymbalta] 60 mg PO HS 06/12/23 07/30/23 History HYDROcodone/APAP 10-325MG [Lenore 1 tab PO Q6H PRN 06/12/23 07/30/23 History 10-325] Montelukast [Singulair] 10 mg PO HS 06/12/23 07/30/23 History Morphine Sulfate ER [Ms Contin] 30 mg PO BID 06/12/23 07/30/23 History [place]-3 Fatty Acids [[place]-3] 4,000 mg PO DAILY 06/12/23 07/30/23 History Pantoprazole [Protonix] 40 mg PO HS 06/12/23 07/30/23 History Pregabalin [Lyrica] 75 mg PO BID 06/12/23 07/30/23 History Prochlorperazine [Compazine] 10 mg PO Q6H PRN 06/12/23 07/30/23 History Tamsulosin [Flomax] 0.4 mg PO HS 06/12/23 07/30/23 History Albuterol Sulfate [Ventolin HFA] 1 - 2 puff INHALATION RT-Q4H PRN 07/06/23 07/30/23 History guaiFENesin [Mucinex] 1,200 mg PO BID 07/06/23 07/30/23 History polyethylene glycoL 3350 [Miralax] 17 gm PO DAILY 07/06/23 07/30/23 History levETIRAcetam [Keppra] 500 mg PO Q12HR #60 tab 07/10/23 07/30/23 Rx Garlic 1,000 mg PO DAILY 07/24/23 07/30/23 History dexAMETHasone ORAL [Hexadrol] See Taper PO DIRECTED 07/24/23 07/30/23 History Ipratropium-Albuterol Nebulize 3 ml INHALATION RT-QID #0 07/26/23 07/30/23 Rx [Duoneb 0.5 mg-3 mg/3 ml Soln] Metoprolol Tartrate [Lopressor] 25 mg PO BID #60 tab 07/26/23 07/30/23 Rx Allergies Allergy/AdvReac Type Severity Reaction Status Date / Time alprazolam [From Xanax] Allergy Unknown Verified 07/30/23 22:38 scopolamine Allergy Unknown Verified 07/30/23 22:38 metoprolol [From Toprol XL] AdvReac Dizziness Verified 07/30/23 22:38 Physical Exam Vitals: Vital Signs Temp Pulse Resp BP Pulse Ox FiO2 07/31/23 06:00 80 19 113/75 96 07/31/23 05:00 80 16 123/72 97 07/31/23 04:00 82 15 134/90 96 07/31/23 03:55 50 07/31/23 03:20 20 07/31/23 03:00 76 14 117/79 95 07/31/23 02:43 50 07/31/23 02:00 77 15 110/77 94 L 07/31/23 01:00 110 H 22 107/73 96 07/31/23 00:00 129 H 15 105/75 95 07/30/23 23:25 131 H 14 96/71 95 07/30/23 23:07 138 H 26 H 106/88 95 07/30/23 22:46 131 H 26 H 101/72 94 L 07/30/23 22:42 156 H 28 H 94/79 07/30/23 22:31 158 H 26 H 101/67 95 07/30/23 22:24 144 H 28 H 112/87 94 L 07/30/23 22:09 158 H 96/62 07/30/23 21:57 154 H 26 H 99/67 94 L 07/30/23 21:47 151 H 32 H 73/51 94 L 07/30/23 21:24 168 H 28 H 89/68 94 L 07/30/23 21:07 176 H 32 H 86/66 96 07/30/23 21:00 160 H 26 H 90/49 07/30/23 20:11 147 H 07/30/23 20:02 50 07/30/23 20:00 120 H 36 H 122/88 94 L 07/30/23 19:33 35 07/30/23 18:55 97 F L 139 H 26 H 129/99 98 Intake and Output 07/30/23 07/31/23 07/31/23 22:59 06:59 14:59 Intake Total 4.25 Balance 4.25 Intake: Intake, IV Titration 4.25 Amount Diltiazem 125 mg In 4.25 Sodium Chloride 0.9% 100 ml @ 5 MG/HR 5 mls/hr IV .Q24H [facility] Rx#:[id number] Other: Weight 106.141 kg Results 07/31/23 06:44 07/31/23 06:44 Cardiac Enzymes 07/30/23 07/30/23 07/30/23 Range/Units 19:43 19:43 23:47 AST 32 (17-59) U/L Troponin I 0.016 0.157 H* (0.000-0.034) ng/mL 07/31/23 Range/Units 03:10 AST (17-59) U/L Troponin I 0.156 H* (0.000-0.034) ng/mL Coagulation 07/30/23 Range/Units 19:43 PT 10.5 (10.0-12.5) sec APTT 25.8 (22.0-30.0) sec CBC 07/30/23 Range/Units 19:43 WBC 13.9 H (3.8-10.6) k/uL RBC 5.00 (4.30-5.90) m/uL Hgb 13.5 (13.0-17.5) gm/dL Hct 42.5 (39.0-53.0) % Plt Count 334 (150-450) k/uL Comprehensive Metabolic Panel 07/30/23 Range/Units 19:43 Sodium 135 L (137-145) mmol/L Potassium 4.8 (3.5-5.1) mmol/L Chloride 96 L (98-107) mmol/L Carbon Dioxide 29 (22-30) mmol/L BUN 23 H (9-20) mg/dL Creatinine 0.63 L (0.66-1.25) mg/dL Glucose 138 H (74-99) mg/dL Calcium 9.0 (8.4-10.2) mg/dL AST 32 (17-59) U/L ALT 36 (4-49) U/L Alkaline Phosphatase 107 (38-126) U/L Total Protein 6.6 (6.3-8.2) g/dL Albumin 3.0 L (3.5-5.0) g/dL Current Medications Generic Name Dose Route Start Last Admin Trade Name Freq PRN Reason Stop Dose Admin Hydrocodone Bitart/Acetaminophen 1 each 07/31/23 00:33 Hydrocodone/Apap 10-325mg 1 Each Tab PO Q6H PRN Pain Albuterol Sulfate 2.5 mg 07/31/23 00:19 Albuterol Nebulized 2.5 Mg/3 Ml INHALATION RT-Q4H PRN Shortness Of Breath Albuterol/Ipratropium 3 ml 07/31/23 08:00 07/31/23 07:56 Ipratropium-Albuterol 3 Ml Neb INHALATION 3 ml RT-QID YASIR Administration Atorvastatin Calcium 40 mg 07/31/23 21:00 Atorvastatin 40 Mg Tab PO HS YASIR Duloxetine HCl 60 mg 07/31/23 21:00 Duloxetine Hcl 60 Mg Capsule.Dr PO HS YASIR Cefepime HCl 1 gm/ Sodium 50 mls @ 12.5 mls/hr 07/31/23 01:30 07/31/23 03:21 Chloride IVPB 12.5 mls/hr Q12H YASIR Administration Protocol Diltiazem HCl 125 mg/ Sodium 125 mls @ 5 mls/hr 07/31/23 01:00 07/31/23 02:15 Chloride IV Not Given .Q24H YASIR 5 MG/HR Vancomycin HCl 2,000 mg/ 500 mls @ 167 mls/hr 07/31/23 16:00 Sodium Chloride IVPB Q12H YASIR Levetiracetam 500 mg 07/31/23 09:00 Levetiracetam 500 Mg Tab PO Q12HR YASIR Methylprednisolone Sodium Succinate 60 mg 07/31/23 06:00 07/31/23 05:58 Methylprednisolone Sod Succi 125 Mg/2 Ml Vial IV 60 mg Q6HR YASIR Administration Metoprolol Tartrate 50 mg 07/31/23 09:00 Metoprolol Tartrate 25 Mg Tab PO BID [facility] Miscellaneous Information 1 each 07/31/23 00:36 Vancomycin Iv Per Pharmacy 1 Each Misc MISCELLANE DIRECTED PRN Per Protocol Protocol Montelukast Sodium 10 mg 07/31/23 21:00 Montelukast 10 Mg Tab PO HS [facility] Naloxone HCl 0.2 mg 07/31/23 00:38 Naloxone 0.4 Mg/Ml 1 Ml Vial IV Q2M PRN Opioid Reversal Pantoprazole Sodium 40 mg 07/31/23 21:00 Pantoprazole 40 Mg Tablet PO HS [facility] Tamsulosin HCl 0.4 mg 07/31/23 21:00 Tamsulosin 0.4 Mg Cap.Er.24h PO HS [facility] Intake and Output 07/30/23 07/31/23 07/31/23 22:59 06:59 14:59 Intake Total 4.25 Balance 4.25 Intake: Intake, IV Titration 4.25 Amount Diltiazem 125 mg In 4.25 Sodium Chloride 0.9% 100 ml @ 5 MG/HR 5 mls/hr IV .Q24H [facility] Rx#:[id number] Other: Weight 106.141 kg 07/30/23 19:43 07/30/23 19:43
[2023-07-31] MEDS ORDERED: BUPIVACAINE (PF) 0.25% 30 ML VIAL SQ ONE (14:43)
--- NOTE | 2023-07-31 15:04 | P.OP ---
Date of Procedure: 07/31/23 Preoperative Diagnosis: Recurrent malignant right sided pleural effusion Postoperative Diagnosis: Same Procedure(s) Performed: R sided pleurX catheter insertion Implants: PleurX Anesthesia: TIMOTEOA Surgeon: Kareem Gomez Estimated Blood Loss (ml): 0 Pathology: other (pleural fluid for cytology) Condition: stable Disposition: PACU Indications for Procedure: This patient is a 72 year-old male with a hx of colon cancer s/p resection with metastatic disease to the lung and brain and bladder cancer who was found to have a recurrent right sided pleural effusions over the last several months. Although cytology was inconclusive last time, this is thought to likely be malignant. PleurX was recommended. Operative Findings: 1200cc of serous fluid Description of Procedure: The patient was brought back to the operating room and placed in the supine position. He had eaten so he was not sedated. His right chest was prepped and draped. He was already on antibiotics. 0.25% marcaine was used to anesthetize the skin over the costal margin and another area posteriorly. Small incisions were made in both places and the catheter was tunneled from anterior to posterior. The introducer needle was inserted over the rib posteriorly and guidewire was inserted. It was confirmed with fluoroscopy. The peel away sheath was then threaded over the wire under fluoroscopic guidance. The catheter was threaded into the chest and confirmed one last time with xray. 1200cc of serous fluid was drained. Some was sent for cytology. The skin was closed posteriorly with vicryl and glue. A sterile dressing was applied.
--- NOTE | 2023-07-31 15:15 | FL ---
EXAMINATION TYPE: FL guidance operating room DATE OF EXAM: 07/31/2023 CLINICAL HISTORY: Pleurx catheter insertion TECHNIQUE: Fluoroscopy. COMPARISON: None. FINDINGS: Fluoroscopic guidance was provided during procedure performed by Dr. Gomez. A total of 12 .8 seconds of fluoroscopic time was utilized during the procedure and two spot images was acquired. I ntraoperative images showed targeting the right lung base. Total dose area product (DAP) in uGy*m?, m Gy*cm? (or similar: 0.64687. IMPRESSION: As Above.
--- NOTE | 2023-07-31 15:55 | P.CNPUL ---
History of Present Illness Consult date: 07/31/23 Requesting physician: Anil Henley Reason for consult: dyspnea, pleural effusion, abnormal CXR/CT Chief complaint: Shortness of breath History of present illness: This is a 72-year-old male patient with a known history of chronic obstructive pulmonary disease, bladder cancer with previous transurethral resection, paroxysmal atrial fibrillation, hyperlipidemia, hypertension, CVA/TIA, former smoker. He also has a history of metastatic colon cancer with diffuse pulmonary involvement and metastasis to the brain. He has been having issues with recurrent right-sided pleural effusion and had undergone a thoracentesis on 07/07/23 with 2 L of serosanguineous fluid removed. The repeat presented here to the emergency room this morning with increasing shortness of breath. He initially required BiPAP support 10/6 and 50% FiO2. Ultrasound of the right chest did reveal a significant 13.3 cm pocket. White count 11.1. Hemoglobin 12.1. Sodium 137. Potassium 4.7. Bicarb 25. BUN 24. Creatinine 0.59. Glucose 168. Troponin 0.157, 0.1.6, BNP 911. Procalcitonin 0.48. He is seen today in consultation in the emergency department. He is currently sitting up on the stretcher. Awake and alert in no acute distress. He is maintaining good O2 saturations in the 90s on 3 L/m per nasal cannula. He's been afebrile. Hemodynamically stable. Initiated on bronchodilators, steroids, vancomycin and cefepime. Review of Systems REVIEW OF SYSTEMS: CONSTITUTIONAL: Denies any recent significant weight loss or weight gain. EYES: Denies change in vision. EARS, NOSE, MOUTH, THROAT: Denies headaches, denies sore throat. CARDIOVASCULAR: Denies chest pain, palpitations or syncopal episodes. RESPIRATORY: Positive for shortness of breath, cough, congestion no hemoptysis. GASTROINTESTINAL: Denies change in appetite, denies abdominal pain GENITOURINARY: Denies hematuria, denies infections. MUSKULOSKELETAL: Denies pain, denies swelling. INTEGUMENTARY: Denies rash, denies eczema. NEUROLOGICAL: Denies recent memory loss, no recent seizure activity. PSYCHIATRIC: Denies anxiety, denies depression. HEMATOLOGIC/LYMPHATIC: Denies anemia, denies enlarged lymph nodes. Past Medical History Past Medical History: Cancer, COPD, CVA/TIA, GERD/Reflux, Hypertension Additional Past Medical History / Comment(s): S4 colon cancer, lung cancer, bladder cancer, brain cancer History of Any Multi-Drug Resistant Organisms: None Reported Past Surgical History: Bowel Resection, Joint Replacement, Orthopedic Surgery Additional Past Surgical History / Comment(s): repeated right sided thoracentesis Past Anesthesia/Blood Transfusion Reactions: No Reported Reaction Past Psychological History: No Psychological Hx Reported Smoking Status: Former smoker Past Alcohol Use History: None Reported Past Drug Use History: Marijuana Medications and Allergies Home Medications Medication Instructions Recorded Confirmed Type Atorvastatin [Lipitor] 40 mg PO HS 06/12/23 07/30/23 History Cholecalciferol [Vitamin D3 (25 25 mcg PO DAILY 06/12/23 07/30/23 History Mcg = 1000 Iu)] Cyanocobalamin (Vitamin B-12) 1,000 mcg PO DAILY 06/12/23 07/30/23 History [Vitamin B-12] DULoxetine HCL [Cymbalta] 60 mg PO HS 06/12/23 07/30/23 History HYDROcodone/APAP 10-325MG [[place] 1 tab PO Q6H PRN 06/12/23 07/30/23 History 10-325] Montelukast [Singulair] 10 mg PO HS 06/12/23 07/30/23 History Morphine Sulfate ER [Ms Contin] 30 mg PO BID 06/12/23 07/30/23 History Monroe-3 Fatty Acids [Monroe-3] 4,000 mg PO DAILY 06/12/23 07/30/23 History Pantoprazole [Protonix] 40 mg PO HS 06/12/23 07/30/23 History Pregabalin [Lyrica] 75 mg PO BID 06/12/23 07/30/23 History Prochlorperazine [Compazine] 10 mg PO Q6H PRN 06/12/23 07/30/23 History Tamsulosin [Flomax] 0.4 mg PO HS 06/12/23 07/30/23 History Albuterol Sulfate [Ventolin HFA] 1 - 2 puff INHALATION RT-Q4H PRN 07/06/23 07/30/23 History guaiFENesin [Mucinex] 1,200 mg PO BID 07/06/23 07/30/23 History polyethylene glycoL 3350 [Miralax] 17 gm PO DAILY 07/06/23 07/30/23 History levETIRAcetam [Keppra] 500 mg PO Q12HR #60 tab 07/10/23 07/30/23 Rx Garlic 1,000 mg PO DAILY 07/24/23 07/30/23 History dexAMETHasone ORAL [Hexadrol] See Taper PO DIRECTED 07/24/23 07/30/23 History Ipratropium-Albuterol Nebulize 3 ml INHALATION RT-QID #0 07/26/23 07/30/23 Rx [Duoneb 0.5 mg-3 mg/3 ml Soln] Metoprolol Tartrate [Lopressor] 25 mg PO BID #60 tab 07/26/23 07/30/23 Rx Allergies Allergy/AdvReac Type Severity Reaction Status Date / Time alprazolam [From Xanax] Allergy Unknown Verified 07/30/23 22:38 scopolamine Allergy Unknown Verified 07/30/23 22:38 metoprolol [From Toprol XL] AdvReac Dizziness Verified 07/30/23 22:38 Physical Exam Vitals: Vital Signs Temp Pulse Pulse Pulse Resp BP BP 07/31/23 15:30 83 16 132/46 07/31/23 15:15 80 16 115/78 07/31/23 14:57 98 F 82 16 126/79 07/31/23 14:44 80 138/87 07/31/23 14:39 81 148/94 07/31/23 14:35 81 134/90 07/31/23 14:29 84 135/98 07/31/23 13:54 98.0 F 80 16 117/72 07/31/23 13:00 77 20 114/79 07/31/23 11:33 88 07/31/23 11:21 94 07/31/23 08:24 88 07/31/23 08:23 07/31/23 08:05 92 07/31/23 08:00 97.2 F L 92 24 114/79 07/31/23 07:57 07/31/23 06:00 80 19 113/75 07/31/23 05:00 80 16 123/72 07/31/23 04:00 82 15 134/90 07/31/23 03:55 07/31/23 03:20 20 07/31/23 03:00 76 14 117/79 07/31/23 02:43 07/31/23 02:00 77 15 110/77 07/31/23 01:00 110 H 22 107/73 07/31/23 00:00 129 H 15 105/75 07/30/23 23:25 131 H 14 96/71 07/30/23 23:07 138 H 26 H 106/88 07/30/23 22:46 131 H 26 H 101/72 07/30/23 22:42 156 H 28 H 94/79 07/30/23 22:31 158 H 26 H 101/67 07/30/23 22:24 144 H 28 H 112/87 07/30/23 22:09 158 H 96/62 07/30/23 21:57 154 H 26 H 99/67 07/30/23 21:47 151 H 32 H 73/51 07/30/23 21:24 168 H 28 H 89/68 07/30/23 21:07 176 H 32 H 86/66 07/30/23 21:00 160 H 26 H 90/49 07/30/23 20:11 147 H 07/30/23 20:02 07/30/23 20:00 120 H 36 H 122/88 07/30/23 19:33 07/30/23 18:55 97 F L 139 H 26 H 129/99 Pulse Ox FiO2 07/31/23 15:30 97 07/31/23 15:15 97 07/31/23 14:57 97 07/31/23 14:44 97 07/31/23 14:39 96 07/31/23 14:35 96 07/31/23 14:29 95 07/31/23 13:54 96 07/31/23 13:00 95 07/31/23 11:33 07/31/23 11:21 07/31/23 08:24 07/31/23 08:23 93 L 07/31/23 08:05 07/31/23 08:00 90 L 07/31/23 07:57 50 07/31/23 06:00 96 07/31/23 05:00 97 07/31/23 04:00 96 07/31/23 03:55 50 07/31/23 03:20 07/31/23 03:00 95 07/31/23 02:43 50 07/31/23 02:00 94 L 07/31/23 01:00 96 07/31/23 00:00 95 07/30/23 23:25 95 07/30/23 23:07 95 07/30/23 22:46 94 L 07/30/23 22:42 07/30/23 22:31 95 07/30/23 22:24 94 L 07/30/23 22:09 07/30/23 21:57 94 L 07/30/23 21:47 94 L 07/30/23 21:24 94 L 07/30/23 21:07 96 07/30/23 21:00 07/30/23 20:11 07/30/23 20:02 50 07/30/23 20:00 94 L 07/30/23 19:33 35 07/30/23 18:55 98 Intake and Output 07/31/23 07/31/23 07/31/23 06:59 14:59 22:59 Intake Total 50 Balance 50 Intake: IV 50 Other: Weight 106.14 kg GENERAL EXAM: Alert, pleasant 72-year-old male, on 3 L nasal cannula, fairly comfortable in no apparent distress. HEAD: Normocephalic. EYES: Normal reaction of pupils, equal size. NOSE: Clear with pink turbinates. THROAT: No erythema or exudates. NECK: No masses, no JVD. CHEST: No chest wall deformity. LUNGS: Equal air entry with posterior diminished breath sounds right greater than left. CVS: S1 and S2 normal with no audible murmur, regular rhythm. ABDOMEN: No hepatosplenomegaly, normal bowel sounds, no guarding or rigidity. SPINE: No scoliosis or deformity SKIN: No rashes CENTRAL NERVOUS SYSTEM: No focal deficits, tone is normal in all 4 extremities. EXTREMITIES: There is no peripheral edema. No clubbing, no cyanosis. Periphe ral pulses are intact. Results - Laboratory Findings CBC and BMP: 07/31/23 06:44 07/31/23 06:44 PT/INR, D-dimer PT 10.5 sec (10.0-12.5) 07/30/23 19:43 INR 1.0 (<1.2) 07/30/23 19:43 Abnormal lab findings: Abnormal Labs 07/30/23 07/30/23 07/30/23 19:43 19:43 19:43 WBC 13.9 H Hgb MCHC RDW 16.3 H Neutrophils # 12.3 H Lymphocytes # VBG pH VBG HCO3 Sodium 135 L Chloride 96 L BUN 23 H Creatinine 0.63 L Glucose 138 H Plasma Lactic Acid Remi Troponin I Albumin 3.0 L Procalcitonin Urine Protein 1+ H Urine Glucose (UA) 1+ H Urine Blood Small H Ur Leukocyte Esterase Small H Urine RBC 37 H Urine WBC 18 H Urine Bacteria Rare H Urine Mucus Moderate H 07/30/23 07/30/23 07/30/23 19:43 19:43 23:47 WBC Hgb MCHC RDW Neutrophils # Lymphocytes # VBG pH 7.45 H VBG HCO3 30 H Sodium Chloride BUN Creatinine Glucose Plasma Lactic Acid Remi 3.2 H* Troponin I 0.157 H* Albumin Procalcitonin Urine Protein Urine Glucose (UA) Urine Blood Ur Leukocyte Esterase Urine RBC Urine WBC Urine Bacteria Urine Mucus 07/31/23 07/31/23 07/31/23 00:42 03:10 03:10 WBC Hgb MCHC RDW Neutrophils # Lymphocytes # VBG pH VBG HCO3 Sodium Chloride BUN Creatinine Glucose Plasma Lactic Acid Remi 2.4 H* Troponin I 0.156 H* Albumin Procalcitonin 0.48 H Urine Protein Urine Glucose (UA) Urine Blood Ur Leukocyte Esterase Urine RBC Urine WBC Urine Bacteria Urine Mucus 07/31/23 07/31/23 07/31/23 06:44 06:44 06:44 WBC 11.1 H Hgb 12.1 L MCHC 30.3 L RDW 16.3 H Neutrophils # 10.2 H Lymphocytes # 0.6 L VBG pH VBG HCO3 Sodium Chloride BUN 24 H Creatinine 0.59 L Glucose 168 H Plasma Lactic Acid Remi 2.3 H* Troponin I Albumin Procalcitonin Urine Protein Urine Glucose (UA) Urine Blood Ur Leukocyte Esterase Urine RBC Urine WBC Urine Bacteria Urine Mucus 07/31/23 07/31/23 09:38 12:51 WBC Hgb MCHC RDW Neutrophils # Lymphocytes # VBG pH VBG HCO3 Sodium Chloride BUN Creatinine Glucose Plasma Lactic Acid Remi 3.9 H* 2.7 H* Troponin I Albumin Procalcitonin Urine Protein Urine Glucose (UA) Urine Blood Ur Leukocyte Esterase Urine RBC Urine WBC Urine Bacteria Urine Mucus - Diagnostic Findings Chest x-ray: image reviewed Assessment and Plan Assessment: Acute hypoxemic respiratory failure secondary to recurrent pleural effusions right greater than left, plan is for Pleurx catheter placement History of right pleural effusion status post thoracentesis on 07/07/2023 History of metastatic colon cancer to the brain being followed at [facility] for clinical trials Chronic obstructive pulmonary disease History of bladder cancer status post transurethral resection History of nephrolithiasis and left-sided hydronephrosis History of paroxysmal atrial fibrillation, not on anticoagulation Hyperlipidemia Hypertension History of CVA/TIA Former smoker Plan: The patient was seen and evaluated Chest x-ray, labs and medications reviewed Ultrasound of the chest was ordered Requested CT services for possible Pleurx catheter Continue bronchodilators, steroids and antibiotics We'll continue to follow and make further recommendations based on his clinical status I have personally seen and examined the patient, performed the documentation and the assessment and plan as written. Number of minutes spent on the visit: 20.
[2023-07-31] MEDS: VANCOMYCIN 1,750 MG in SODIUM CHLORIDE 0.9% 500 ML 500 ML IVPB SCH ×2 (16:13→21:10)
[2023-07-31] MEDS ORDERED: IV FLUID CONTINUATION 450 ML IV ONE (17:36)
[2023-07-31] MEDS: ATORVASTATIN 40 MG TAB PO SCH (21:09)
[2023-07-31] MEDS: MONTELUKAST 10 MG TAB PO SCH (21:09)
[2023-07-31] MEDS: PANTOPRAZOLE 40 MG TABLET PO SCH (21:09)
[2023-07-31] MEDS: DULoxetine HCL 60 MG CAPSULE.DR PO SCH (21:09)
[2023-07-31] MEDS: TAMSULOSIN 0.4 MG CAP.ER.24H PO SCH (21:09)
[2023-07-31] MEDS: MORPHINE SULFATE ER 30 MG TABLET PO SCH (21:09)
[2023-08-01] MEDS: HYDROcodone/APAP 10-325MG 1 EACH TAB PO PRN ×3 (00:04→15:16)
[2023-08-01] MEDS: CEFEPIME 1 GM in SODIUM CHLORIDE 0.9% 50 ML IVPB SCH ×2 (02:25→15:23)
[2023-08-01] MEDS: VANCOMYCIN 1,750 MG in SODIUM CHLORIDE 0.9% 500 ML 500 ML IVPB SCH ×2 (04:26→12:02)
[2023-08-01] MEDS: methylPREDNISolone SOD SUCCI 125 MG/2 ML VIAL IV SCH ×3 (07:07→17:30)
[2023-08-01] MEDS: DILTIAZEM 125 MG in SODIUM CHLORIDE 0.9% 100 ML IV SCH (08:04)
[2023-08-01] MEDS: MORPHINE SULFATE ER 30 MG TABLET PO SCH ×2 (08:08→21:57)
[2023-08-01] MEDS: METOPROLOL TARTRATE 50 MG TAB PO SCH ×3 (08:08→21:55)
[2023-08-01] MEDS: levETIRAcetam 500 MG TAB PO SCH ×2 (08:08→21:55)
[2023-08-01] MEDS: AMIODARONE 200 MG TAB PO SCH ×2 (08:08→21:55)
[2023-08-01] MEDS: IPRATROPIUM-ALBUTEROL 3 ML NEB INHALATION SCH ×4 (08:54→21:45)
[2023-08-01 09:01] LABS: Anisocytosis Slight; HCT 35.2 % (39.0-53.0); HGB 11.1 gm/dL (13.0-17.5); Hypochromasia Moderate; MCH 27.4 pg (25.0-35.0); MCHC 31.5 g/dL (31.0-37.0); MCV 86.9 fL (80.0-100.0); Mean Platelet Volume 7.8; Platelet Count 281 k/uL (150-450); RBC 4.04 m/uL (4.30-5.90); RDW 16.4 % (11.5-15.5); WBC 10.5 k/uL (3.8-10.6)
[2023-08-01 09:35] LABS: African American GFR (CKD) >90 (>60 ml/min/1.73 sqM); Anion Gap 10 mmol/L; Blood Urea Nitrogen 25 mg/dL (9-20); Calcium 8.5 mg/dL (8.4-10.2); Carbon Dioxide 26 mmol/L (22-30); Chloride 100 mmol/L (98-107); Glucose 243 mg/dL (74-99); Non-African American GFR(CKD) >90 (>60 ml/min/1.73 sqM); Potassium 4.8 mmol/L (3.5-5.1); Sodium 136 mmol/L (137-145)
[2023-08-01] MEDS ORDERED: VANCOMYCIN TROUGH DUE 1 EACH MISC MISCELLANE ONE (11:00)
--- NOTE | 2023-08-01 13:19 | P.PN ---
Subjective Progress Note Date: 08/01/23 The patient is a 72-year-old male who presented to the hospital with worsening shortness of breath. He has a known history of colon cancer with metastasis to the liver, lung, and brain with recurrent right-sided pleural effusion. Right- sided Pleurx catheter was placed yesterday by CV surgery. The patient tolerated the procedure well. The patient is currently in sinus rhythm. The patient states his breathing is better. He denies any chest pain or chest pressure. GENERAL: Well-appearing, well-nourished and in no acute distress. NECK: Supple without JVD or thyromegaly. LUNGS: Breath sounds are severely diminished to auscultation bilaterally. Respiration equal and unlabored. Bilateral inspiratory wheezes HEART: Regular rate and rhythm without murmurs, rubs or gallops. S1 and S2 heard. EXTREMITIES: Normal range of motion, no edema. No clubbing or cyanosis. Peripheral pulses intact and strong. TELEMETRY: Sinus mechanism currently IMPRESSION: Atrial fibrillation with RVR, paroxysmal Elevated troponin secondary to A. fib with RVR History of metastatic colon cancer Right pleural effusion with plan for Pleurx catheter PLAN: Continue oral amiodarone 200 mg twice daily for 1 week, then reduce to 200 mg daily for 6 weeks, and then 100 mg thereafter Continue metoprolol and 3 times a day dosing to avoid hypotension No further recommendations from the cardiac standpoint I am dictating on behalf of Dr Misael Hawk's history/physical and assessment/plan. Objective - Vital Signs Vital signs: Vital Signs Temp 97.7 F 08/01/23 11:37 Pulse 84 08/01/23 12:03 Resp 18 08/01/23 11:37 BP 113/69 08/01/23 11:37 Pulse Ox 96 08/01/23 11:37 FiO2 50 08/01/23 01:04 Intake & Output 07/31/23 08/01/23 08/01/23 18:59 06:59 18:59 Intake Total 60 240 732 Output Total 100 650 Balance 60 140 82 Weight 106.14 kg 108.9 kg Intake: IV 60 10 Invasive Line 2 10 10 Intake, IV Titration 500 Amount Vancomycin 1,750 mg In 500 Sodium Chloride 0.9% 500 ml 500 ml @ 167 mls/hr IVPB Q8H [facility] Rx#: [id number] Oral 240 222 Output: Urine 100 650 Other: Voiding Method Toilet Toilet Toilet Urinal Urinal Urinal # Voids 1 1 - Labs CBC & Chem 7: 08/01/23 08:33 08/01/23 08:33 Labs: Abnormal Lab Results - Last 24 Hours (Table) 07/31/23 08/01/23 08/01/23 Range/Units 12:51 08:33 08:33 RBC 4.04 L (4.30-5.90) m/uL Hgb 11.1 L (13.0-17.5) gm/dL Hct 35.2 L (39.0-53.0) % RDW 16.4 H (11.5-15.5) % Sodium 136 L (137-145) mmol/L BUN 25 H (9-20) mg/dL Creatinine 0.52 L (0.66-1.25) mg/dL Glucose 243 H (74-99) mg/dL Plasma Lactic Acid Remi 2.7 H* (0.7-2.0) mmol/L Microbiology - Last 24 Hours (Table) 07/31/23 02:47 Blood Culture - Preliminary Blood 07/31/23 03:25 Blood Culture Gram Stain - Preliminary Blood Blood Culture - Preliminary
--- NOTE | 2023-08-01 13:56 | P.PN ---
Subjective Progress Note Date: 08/01/23 Principal diagnosis: Acute hypoxic respiratory failure and recurrent right-sided pleural effusion with metastatic colon cancer This is a 72-year-old male patient with a known history of chronic obstructive pulmonary disease, bladder cancer with previous transurethral resection, paroxysmal atrial fibrillation, hyperlipidemia, hypertension, CVA/TIA, former smoker. He also has a history of metastatic colon cancer with diffuse pulmonary involvement and metastasis to the brain. He has been having issues with recurrent right-sided pleural effusion and had undergone a thoracentesis on 07/07/23 with 2 L of serosanguineous fluid removed. The repeat presented here to the emergency room this morning with increasing shortness of breath. He initially required BiPAP support 10/ and 50% FiO2. Ultrasound of the right chest did reveal a significant 13.3 cm pocket. White count 11.1. Hemoglobin 12.1. Sodium 137. Potassium 4.7. Bicarb 25. BUN 24. Creatinine 0.59. Glucose 168. Troponin 0.157, 0.1.6, BNP 911. Procalcitonin 0.48. He is seen today in consultation in the emergency department. He is currently sitting up on the stretcher. Awake and alert in no acute distress. He is maintaining good O2 saturations in the 90s on 3 L/m per nasal cannula. He's been afebrile. Hemodynamically stable. Initiated on bronchodilators, steroids, vancomycin and cefepime. Reevaluated today on 08/01/23, patient is feeling better, he underwent Pleurx catheter placement on the right side, and significant amount of fluid was drained. However his blood cultures are positive for gram-positive cocci in clusters and the patient is presently on vancomycin as well as cefepime. Pulmonary-laws is feeling great, no cough no wheezing no shortness of breath WBC is 10.5 hemoglobin 11.1 basic metabolic profile is normal and renal profile is normal. Objective - Vital Signs Vital signs: Vital Signs Temp 97.7 F 08/01/23 11:37 Pulse 84 08/01/23 12:03 Resp 18 08/01/23 11:37 BP 113/69 08/01/23 11:37 Pulse Ox 96 08/01/23 11:37 FiO2 50 08/01/23 01:04 Intake & Output 07/31/23 08/01/23 08/01/23 18:59 06:59 18:59 Intake Total 60 240 732 Output Total 100 650 Balance 60 140 82 Weight 106.14 kg 108.9 kg Intake: IV 60 10 Invasive Line 2 10 10 Intake, IV Titration 500 Amount Vancomycin 1,750 mg In 500 Sodium Chloride 0.9% 500 ml 500 ml @ 167 mls/hr IVPB Q8H [facility] Rx#: [id number] Oral 240 222 Output: Urine 100 650 Other: Voiding Method Toilet Toilet Toilet Urinal Urinal Urinal # Voids 1 1 - Exam GENERAL EXAM: Revealed 72-year-old white male in no distress on 3 L nasal cannula Head: Atraumatic normocephalic HEENT: PERRLA, EOMI, anicteric, no neck masses, no JVD. CHEST: No chest wall deformity. LUNGS: Diminished breath sounds at the bases no crackles or rhonchi or wheezes right-sided Pleurx catheter is noted CVS: S1 and S2 normal with no audible murmur, regular rhythm. ABDOMEN: No hepatosplenomegaly, normal bowel sounds, no guarding or rigidity. SKIN: No rashes CENTRAL NERVOUS SYSTEM: No focal deficits, tone is normal in all 4 extremities. EXTREMITIES: There is no peripheral edema. No clubbing, no cyanosis. Peripheral pulses are intact. - Labs CBC & Chem 7: 08/01/23 08:33 08/01/23 08:33 Labs: Abnormal Lab Results - Last 24 Hours (Table) 08/01/23 08/01/23 Range/Units 08:33 08:33 RBC 4.04 L (4.30-5.90) m/uL Hgb 11.1 L (13.0-17.5) gm/dL Hct 35.2 L (39.0-53.0) % RDW 16.4 H (11.5-15.5) % Sodium 136 L (137-145) mmol/L BUN 25 H (9-20) mg/dL Creatinine 0.52 L (0.66-1.25) mg/dL Glucose 243 H (74-99) mg/dL Microbiology - Last 24 Hours (Table) 07/31/23 02:47 Blood Culture - Preliminary Blood 07/31/23 03:25 Blood Culture Gram Stain - Preliminary Blood Blood Culture - Preliminary Assessment and Plan Assessment: Impression: Gram-positive bacteremia Acute hypoxic respiratory failure secondary to recurrent right-sided pleural effusion, status post Pleurx catheter placement Metastatic colon cancer involving [employer] metastasis. Chronic obstructive lung disease History of bladder cardiac cancer Nephrolithiasis and left-sided hydronephrosis Dyslipidemia Paroxysmal atrial fibrillation Benign essential hypertension History of CVA Ex-smoker Recommendation: Continue antibiotics for his bacteremia Recheck blood cultures Patient was educated regarding handling his Pleurx catheter and drainage continue bronchodilators and steroids Will continue to follow not quite ready for discharge planning considering his possible blood cultures Time with Patient: Less than 30
--- NOTE | 2023-08-01 14:37 | P.PN ---
Subjective Progress Note Date: 08/01/23 72-year-old male presents stage IV metastatic colon cancer with known metastases to liver, lung, and brain with recurrent right-sided pleural effusions, hx of a- fib not on anticoagulation due to low risk of stroke and high risk of bleeding with metastatic disease, patient is well known to our group with 4 hospitalizations in the last 2-3 months presents to the ER with difficulty in breathing, tachycardia. Was recently in the hospital for similar complaints. Found to have right pleural effusion as well as lung metastasis. In the ED, he underwent extensive evaluation. Tachypneic with RR of 36. Tachcardic with HR in the 160-170s. Required BiPAP to maintain O2 saturation greater than 92%. BP is low as 73/51. CBC showed RBC count 13.9 with neutrophilia. Coagulation panel within normal limits. VBG pH 7.45, pCO2 44. CMP sodium 135, chloride 96, BUN 23, creatinine 0.63, glucose 138, albumin 3. Lactic acid 3.2. Troponin 0.157. BNP 911. Urinalysis small leukocyte esterase. Chest x-ray showed right scattered airspace opacities with right pleural effusion. CTA chest enlarging right pleural effusion with increasing atelectasis, no PE, pulmonary metastatic disease, liver lesions. EKG atrial fibrillation with RVR ventricular rate 158. Patient was admitted for further management and workup. Started on Amiodarone and Cardizem drip in the ED for A-Fib with RVR with hypotension. Started on Empiric antibiotics with Vancomycin and Cefepime. Pulmonology, CT surgery and Cardiology consulted. Underwent PleurX catheter on 07/31. Symptoms dramatically improved after PleurX. Cardiology stopped the Car dizem drip and Amiodarone drip and started the patient on Amiodarone PO and Metoprolol PO. 07/31 Patient was seen. Feeling well. Would like to go home. Cleared by Cardiology and CT surgery for discharge. However, his blood culture came back positive for gram + cocci in clusters. CBC Hg 11.1, Hct 35.2. BMP Na 136, BUN 25, Cr 0.52, glu 243. Procal 0.48. General: non toxic, no distress, appears at stated age Derm: warm, dry Head: atraumatic, normocephalic, symmetric Eyes: EOMI, no lid lag, anicteric sclera Cardiovascular: S1S2 reg, no murmur Lungs: Decreased BS bilateral, no rhonchi, no rales , no accessory muscle use Ext: no gross muscle atrophy, no edema, no contractures Neuro: no focal neuro deficits Psych: Alert, oriented, appropriate affect Patient has a recurrently right pleural effusion in the setting of metastatic lung CA with severe exacerbation or progression of disease which poses a threat to life or bodily function. Gram positive bacteremia: Possible contaminant. Vancomycin and Cefepime as below. Repeat BCx ordered. ID consult. Acute hypoxic respiratory failure: Currently weaned down to nasal cannula. DuoNeb scheduled. Solumedrol 60 mg IV Q6H. PleurX catheter placed 07/31. Pulmonology and CT surgery on board. Large right pleural effuion: Managment as above. Atrial fibrillation with RVR: Cardizem and Amiodarone drip discontinued by Cardiology. Started on Metoprolol 50 mg PO TID and Amiodarone 200 mg PO BID. Sepsis with concerns of PNA: Vancomycin dosed per pharmacy and Cefepime 1g IV BID. Troponin elevation: Demand ischemia from A-Fib with RVR. Flat. ACS ruled out. Cardiology on board. Lactic acidosis: In the setting of underlying malignancy. Trend until negative. CODE STATUS: FULL CODE. DVT Prophylaxis: SCDs for now given possible procedure. GI Prophylaxis: Protonix PO Designated medical POA if patient is not able to make medical decisions for themselves: Objective - Vital Signs Vital signs: Vital Signs Temp 97.7 F 08/01/23 11:37 Pulse 84 08/01/23 12:03 Resp 18 08/01/23 11:37 BP 113/69 08/01/23 11:37 Pulse Ox 96 08/01/23 11:37 FiO2 50 08/01/23 01:04 Intake & Output 07/31/23 08/01/23 08/01/23 18:59 06:59 18:59 Intake Total 60 240 850 Output Total 100 650 Balance 60 140 200 Weight 106.14 kg 108.9 kg Intake: IV 60 10 Invasive Line 2 10 10 Intake, IV Titration 500 Amount Vancomycin 1,750 mg In 500 Sodium Chloride 0.9% 500 ml 500 ml @ 167 mls/hr IVPB Q8H [facility] Rx#: [id number] Oral 240 340 Output: Urine 100 650 Other: Voiding Method Toilet Toilet Toilet Urinal Urinal Urinal # Voids 1 1 - Labs CBC & Chem 7: 08/01/23 08:33 08/01/23 08:33 Labs: Abnormal Lab Results - Last 24 Hours (Table) 08/01/23 08/01/23 Range/Units 08:33 08:33 RBC 4.04 L (4.30-5.90) m/uL Hgb 11.1 L (13.0-17.5) gm/dL Hct 35.2 L (39.0-53.0) % RDW 16.4 H (11.5-15.5) % Sodium 136 L (137-145) mmol/L BUN 25 H (9-20) mg/dL Creatinine 0.52 L (0.66-1.25) mg/dL Glucose 243 H (74-99) mg/dL Microbiology - Last 24 Hours (Table) 07/31/23 02:47 Blood Culture - Preliminary Blood 07/31/23 03:25 Blood Culture Gram Stain - Preliminary Blood Blood Culture - Preliminary
[2023-08-01] MEDS: VANCOMYCIN 1,500 MG in SODIUM CHLORIDE 0.9% 500 ML 500 ML IVPB SCH (21:54)
[2023-08-01] MEDS: DULoxetine HCL 60 MG CAPSULE.DR PO SCH (21:55)
[2023-08-01] MEDS: PANTOPRAZOLE 40 MG TABLET PO SCH (21:55)
[2023-08-01] MEDS: MONTELUKAST 10 MG TAB PO SCH (21:55)
[2023-08-01] MEDS: TAMSULOSIN 0.4 MG CAP.ER.24H PO SCH (21:55)
[2023-08-01] MEDS: ATORVASTATIN 40 MG TAB PO SCH (21:55)
--- NOTE | 2023-08-01 23:02 | P.CONS ---
History of Present Illness - Reason for Consult Consult date: 08/01/23 Gram-positive bacteremia Requesting physician: Dash Flower - Chief Complaint Difficulty breathing times few days - History of Present Illness Patient is a 72-year-old male with a past medical history significant for COPD stage IV colon cancer lung cancer hypertension reflux CVA TIA in this patient who did have a Mediport patient was brought into the hospital for evaluation of difficulty breathing and tachycardia in this patient symptoms getting worse around 11 AM the morning of presentation to the hospital patient denies having any chest pain has been complaining of mostly shortness of breath with minimal exertion he will address he did have a cough mild to moderate intensity not bring up any sputum patient denies having any nausea no vomiting no choking with food no abdominal pain or any diarrhea no urinary symptoms the patient did have a Mediport which is currently being used however denies having any pain at the port site patient on presentation to the hospital was afebrile and no fever has been recorded subsequently patient was tachycardic heart rate subsequent normalized he was not hypotensive has been mildly hypoxic requiring supplemental oxygen currently on 3 L nasal cannula patient did have a white count of 13.9 and that has subsequently normalized creatinine 0.52 lactic acid was elevated Pro-Conor 0.48 liver exams are normal urine has been mildly positive Vanco trough was 21 patient did have a blood culture drawn with onset came back positive gram-positive cocci in cluster with ID sensitivities pending, CT angiogram of the chest enlarging right effusion no evidence of PE pulmonary metastatic disease, patient is currently completion of cefepime and vancomycin infectious disease was consulted for further management of antibiotic therapy Review of Systems Positive point and negatives has been mentioned in the HPI, complete review of systems was performed and all other systems are negative Past Medical History Past Medical History: Cancer, COPD, CVA/TIA, GERD/Reflux, Hypertension Additional Past Medical History / Comment(s): S4 colon cancer, lung cancer, bladder cancer, brain cancer, new liver lesions on CTA-07/30/2023 History of Any Multi-Drug Resistant Organisms: None Reported Past Surgical History: Bowel Resection, Joint Replacement, Orthopedic Surgery Additional Past Surgical History / Comment(s): repeated right sided thoracentesis-Pleurex 07/31/2023 Past Anesthesia/Blood Transfusion Reactions: No Reported Reaction Smoking Status: Former smoker Medications and Allergies Home Medications Medication Instructions Recorded Confirmed Type Atorvastatin [Lipitor] 40 mg PO HS 06/12/23 08/06/23 History Cholecalciferol [Vitamin D3 (25 25 mcg PO DAILY 06/12/23 08/06/23 History Mcg = 1000 Iu)] Cyanocobalamin (Vitamin B-12) 1,000 mcg PO DAILY 06/12/23 08/06/23 History [Vitamin B-12] DULoxetine HCL [Cymbalta] 60 mg PO HS 06/12/23 08/06/23 History HYDROcodone/APAP 10-325MG [[place] 1 tab PO Q6H PRN 06/12/23 08/06/23 History 10-325] Montelukast [Singulair] 10 mg PO HS 06/12/23 08/06/23 History Morphine Sulfate ER [Ms Contin] 30 mg PO BID 06/12/23 08/06/23 History Cotton-3 Fatty Acids [Cotton-3] 4,000 mg PO DAILY 06/12/23 08/06/23 History Pantoprazole [Protonix] 40 mg PO HS 06/12/23 08/06/23 History Pregabalin [Lyrica] 75 mg PO BID 06/12/23 08/06/23 History Prochlorperazine [Compazine] 10 mg PO Q6H PRN 06/12/23 08/06/23 History Tamsulosin [Flomax] 0.4 mg PO HS 06/12/23 08/06/23 History Albuterol Sulfate [Ventolin HFA] 1 - 2 puff INHALATION RT-Q4H PRN 07/06/23 08/06/23 History guaiFENesin [Mucinex] 1,200 mg PO BID 07/06/23 08/06/23 History polyethylene glycoL 3350 [Miralax] 17 gm PO DAILY 07/06/23 08/06/23 History levETIRAcetam [Keppra] 500 mg PO Q12HR #60 tab 07/10/23 08/06/23 Rx Garlic 1,000 mg PO DAILY 07/24/23 08/06/23 History dexAMETHasone ORAL [Hexadrol] See Taper PO DIRECTED 07/24/23 08/06/23 History Ipratropium-Albuterol Nebulize 3 ml INHALATION RT-QID #0 07/26/23 08/06/23 Rx [Duoneb 0.5 mg-3 mg/3 ml Soln] Metoprolol Tartrate [Lopressor] 25 mg PO BID #60 tab 07/26/23 08/06/23 Rx Amiodarone [Cordarone] 200 mg PO BID #60 tab 08/03/23 08/06/23 Rx Allergies Allergy/AdvReac Type Severity Reaction Status Date / Time alprazolam [From Xanax] Allergy Unknown Verified 08/06/23 14:07 scopolamine Allergy Unknown Verified 08/06/23 14:07 metoprolol [From Toprol XL] AdvReac Dizziness Verified 08/06/23 14:07 Physical Exam Vitals: Vital Signs Temp Pulse Pulse Pulse Resp BP Pulse Ox 08/01/23 15:34 76 08/01/23 15:25 97.6 F 77 20 117/72 95 08/01/23 15:20 76 08/01/23 12:03 84 08/01/23 11:51 80 08/01/23 11:37 97.7 F 73 18 113/69 96 08/01/23 09:03 76 08/01/23 08:54 72 08/01/23 08:14 97.8 F 83 20 129/78 95 08/01/23 04:00 97.7 F 82 18 134/69 95 08/01/23 01:04 08/01/23 00:00 97.8 F 78 18 144/75 95 FiO2 08/01/23 15:34 08/01/23 15:25 08/01/23 15:20 08/01/23 12:03 08/01/23 11:51 08/01/23 11:37 08/01/23 09:03 08/01/23 08:54 08/01/23 08:14 08/01/23 04:00 08/01/23 01:04 50 08/01/23 00:00 Intake and Output 08/01/23 08/01/23 08/01/23 06:59 14:59 22:59 Intake Total 850 130 Output Total 650 Balance 200 130 Intake: IV 10 10 Invasive Line 2 10 Invasive Line 3 10 Intake, IV Titration 500 Amount Vancomycin 1,750 mg In 500 Sodium Chloride 0.9% 500 ml 500 ml @ 167 mls/hr IVPB Q8H [facility] Rx#: [id number] Oral 340 120 Output: Urine 650 Other: Voiding Method Toilet Toilet Toilet Urinal Urinal Urinal # Voids 1 1 Weight 108.9 kg GENERAL DESCRIPTION: Elderly male up in bed, no distress. No tachypnea or accessory muscle of respiration use. HEENT: Shows Pallor , no scleral icterus. Oral mucous membrane is dry. No pharyngeal erythema or thrush NECK: Trachea central, no thyromegaly. LUNGS: Unlabored breathing. Decreased breath sound at the base HEART: S1, S2, regular rate and rhythm. No loud murmur ABDOMEN: Soft, no tenderness , guarding or rigidity, no organomegaly EXTREMITIES: No edema of feet. SKIN: No rash, no masses palpable. NEUROLOGICAL: The patient is awake, alert, oriented x3, mood and affect normal. Results CBC & Chem 7: 08/03/23 08:14 08/03/23 08:14 Labs: Abnormal Lab Results - Last 24 Hours (Table) 08/01/23 08/01/23 Range/Units 08:33 08:33 RBC 4.04 L (4.30-5.90) m/uL Hgb 11.1 L (13.0-17.5) gm/dL Hct 35.2 L (39.0-53.0) % RDW 16.4 H (11.5-15.5) % Sodium 136 L (137-145) mmol/L BUN 25 H (9-20) mg/dL Creatinine 0.52 L (0.66-1.25) mg/dL Glucose 243 H (74-99) mg/dL Microbiology - Last 24 Hours (Table) 07/31/23 02:47 Blood Culture - Preliminary Blood 07/31/23 03:25 Blood Culture Gram Stain - Preliminary Blood Blood Culture - Preliminary Assessment and Plan (1) Positive blood culture Status: Acute Code(s): R78.81 - BACTEREMIA SNOMED Code(s): 824738891 (2) Leukocytosis Status: Acute Code(s): D72.829 - ELEVATED WHITE BLOOD CELL COUNT, UNSPECIFIED SNOMED Code(s): 593710144 Plan: 1patient with a positive blood culture with gram-positive cocci with ID sensitivities pending in this patient who did have a stage IV colon cancer with mets to the lungs he also have a Mediport presented to hospital with increasing shortness of breath did have elevated white count but no fever with a question of possible skin contamination however the patient does have a port and would like to make sure no evidence of any port infection 2-we will wait for the ID of this pathogen and we will obtain blood cultures from the port and peripherally to document clearance of his bacteremia 3-obtain sputum for Gram stain and culture 4-continue with vancomycin and cefepime while awaiting further workup to be completed We will follow on clinical condition and cultures to further adjust medication if needed Thank you for this consultation we will follow the patient along with you Dictation was produced using [employer] dictation software. please excuse any grammatical, word or spelling errors. Time with Patient: Greater than 30
[2023-08-02] MEDS: methylPREDNISolone SOD SUCCI 125 MG/2 ML VIAL IV SCH ×5 (01:53→23:55)
[2023-08-02] MEDS: CEFEPIME 1 GM in SODIUM CHLORIDE 0.9% 50 ML IVPB SCH ×2 (01:54→16:04)
[2023-08-02] MEDS: VANCOMYCIN 1,500 MG in SODIUM CHLORIDE 0.9% 500 ML 500 ML IVPB SCH ×3 (04:16→21:16)
[2023-08-02] MEDS: HYDROcodone/APAP 10-325MG 1 EACH TAB PO PRN ×2 (06:37→23:56)
--- NOTE | 2023-08-02 08:04 | XR ---
EXAMINATION TYPE: XR chest 1V portable DATE OF EXAM: 08/02/2023 Comparison: 07/30/2023 Clinical History: 72-year-old male Post Pleurx catheter placement Findings: Right anterior chest wall injection port with catheter tip at the mid to lower SVC. Heart remains mil dly enlarged. There is residual small to moderate right pleural effusion though slightly improved fro m prior. Multiple bilateral pulmonary nodules redemonstrated. Mass at the periphery of the right lowe r lung. Right basilar pleural catheter noted. Degenerative changes both glenohumeral joints. Impression: Known bilateral pulmonary nodules along with a mass at the right lower lung. A small to moderate righ t pleural effusion remains, decreased from prior with a right basilar pleural catheter in place.
[2023-08-02] MEDS: IPRATROPIUM-ALBUTEROL 3 ML NEB INHALATION SCH ×4 (08:29→21:14)
[2023-08-02] MEDS: MORPHINE SULFATE ER 30 MG TABLET PO SCH ×2 (10:04→21:14)
[2023-08-02] MEDS: AMIODARONE 200 MG TAB PO SCH ×2 (10:05→21:14)
[2023-08-02] MEDS: METOPROLOL TARTRATE 50 MG TAB PO SCH ×3 (10:05→21:14)
[2023-08-02] MEDS: levETIRAcetam 500 MG TAB PO SCH ×2 (10:05→21:14)
[2023-08-02 10:46] LABS: Anisocytosis Slight; HCT 32.8 % (39.0-53.0); HGB 10.3 gm/dL (13.0-17.5); Hypochromasia Moderate; MCH 27.4 pg (25.0-35.0); MCHC 31.4 g/dL (31.0-37.0); MCV 87.1 fL (80.0-100.0); Mean Platelet Volume 7.8; Platelet Count 290 k/uL (150-450); RBC 3.77 m/uL (4.30-5.90); RDW 16.4 % (11.5-15.5); WBC 8.4 k/uL (3.8-10.6)
[2023-08-02 11:01] LABS: African American GFR (CKD) >90 (>60 ml/min/1.73 sqM); Anion Gap 9 mmol/L; Blood Urea Nitrogen 20 mg/dL (9-20); Calcium 8.6 mg/dL (8.4-10.2); Carbon Dioxide 30 mmol/L (22-30); Chloride 97 mmol/L (98-107); Glucose 311 mg/dL (74-99); Non-African American GFR(CKD) >90 (>60 ml/min/1.73 sqM); Potassium 4.9 mmol/L (3.5-5.1); Sodium 136 mmol/L (137-145)
[2023-08-02 11:02] LABS: African American GFR (CKD) >90 (>60 ml/min/1.73 sqM); Non-African American GFR(CKD) >90 (>60 ml/min/1.73 sqM)
--- NOTE | 2023-08-02 11:51 | P.PN ---
Subjective Progress Note Date: 08/02/23 72-year-old male presents stage IV metastatic colon cancer with known metastases to liver, lung, and brain with recurrent right-sided pleural effusions, hx of a- fib not on anticoagulation due to low risk of stroke and high risk of bleeding with metastatic disease, patient is well known to our group with 4 hospitalizations in the last 2-3 months presents to the ER with difficulty in breathing, tachycardia. Was recently in the hospital for similar complaints. Found to have right pleural effusion as well as lung metastasis. In the ED, he underwent extensive evaluation. Tachypneic with RR of 36. Tachcardic with HR in the 160-170s. Required BiPAP to maintain O2 saturation greater than 92%. BP is low as 73/51. CBC showed RBC count 13.9 with neutrophilia. Coagulation panel within normal limits. VBG pH 7.45, pCO2 44. CMP sodium 135, chloride 96, BUN 23, creatinine 0.63, glucose 138, albumin 3. Lactic acid 3.2. Troponin 0.157. BNP 911. Urinalysis small leukocyte esterase. Chest x-ray showed right scattered airspace opacities with right pleural effusion. CTA chest enlarging right pleural effusion with increasing atelectasis, no PE, pulmonary metastatic disease, liver lesions. EKG atrial fibrillation with RVR ventricular rate 158. Patient was admitted for further management and workup. Started on Amiodarone and Cardizem drip in the ED for A-Fib with RVR with hypotension. Started on Empiric antibiotics with Vancomycin and Cefepime. Pulmonology, CT surgery and Cardiology consulted. Underwent PleurX catheter on 07/31. Symptoms dramatically improved after PleurX. Cardiology stopped the Car dizem drip and Amiodarone drip and started the patient on Amiodarone PO and Metoprolol PO. 08/01 Patient was seen and examined. Feeling well. Would like to go home. Cleared by Cardiology and CT surgery for discharge. However, his blood culture came back positive for gram + cocci in clusters. CBC Hg 11.1, Hct 35.2. BMP Na 136, BUN 25, Cr 0.52, glu 243. Procal 0.48. 08/02 Patient was seen and examined. ID consulted, recommended continuing Vancomycin and Cefepime, repeat BCx and BCx from his port. CBC Hg 10.3. BMP Na 136, Cl 97, Cr 0.58, glu 311. General: non toxic, no distress, appears at stated age Derm: warm, dry Head: atraumatic, normocephalic, symmetric Eyes: EOMI, no lid lag, anicteric sclera Cardiovascular: S1S2 reg, no murmur Lungs: Decreased BS bilateral, no rhonchi, no rales , no accessory muscle use Ext: no gross muscle atrophy, no edema, no contractures Neuro: no focal neuro deficits Psych: Alert, oriented, appropriate affect Patient has a recurrently right pleural effusion in the setting of metastatic lung CA with severe exacerbation or progression of disease which poses a threat to life or bodily function. Gram positive bacteremia: Possible contaminant. Vancomycin and Cefepime as below. Repeat BCx ordered. ID on board. Acute hypoxic respiratory failure: Currently weaned down to nasal cannula. DuoNeb scheduled. Solumedrol 60 mg IV Q6H. PleurX catheter placed 07/31. P ulmonology and CT surgery on board. Large right pleural effuion: Management as above. Atrial fibrillation with RVR: Cardizem and Amiodarone drip discontinued by Cardiology. Started on Metoprolol 50 mg PO TID and Amiodarone 200 mg PO BID. Sepsis with concerns of PNA: Vancomycin dosed per pharmacy and Cefepime 1g IV BID. Troponin elevation: Demand ischemia from A-Fib with RVR. Flat. ACS ruled out. Cardiology on board. Lactic acidosis: In the setting of underlying malignancy. Trend until negative. CODE STATUS: FULL CODE. DVT Prophylaxis: SCDs for now given possible procedure. GI Prophylaxis: Protonix PO Designated medical POA if patient is not able to make medical decisions for themselves: Objective - Vital Signs Vital signs: Vital Signs Temp 97.5 F L 08/02/23 03:14 Pulse 78 08/02/23 08:43 Resp 20 08/02/23 03:14 BP 130/78 08/02/23 03:14 Pulse Ox 99 08/02/23 00:00 FiO2 50 08/02/23 04:33 Intake & Output 08/01/23 08/02/23 08/02/23 18:59 06:59 18:59 Intake Total 980 810 720 Output Total 650 200 Balance 330 610 720 Weight 111.3 kg Intake: IV 20 20 Invasive Line 2 10 Invasive Line 3 10 20 Intake, IV Titration 500 550 Amount Cefepime 1 gm In Sodium 50 Chloride 0.9% 50 ml @ 12. 5 mls/hr IVPB Q12H [facility] Rx #:[id number] Vancomycin 1,500 mg In 500 Sodium Chloride 0.9% 500 ml 500 ml @ 167 mls/hr IVPB Q8H [facility] Rx#: [id number] Vancomycin 1,750 mg In 500 Sodium Chloride 0.9% 500 ml 500 ml @ 167 mls/hr IVPB Q8H [facility] Rx#: [id number] Oral 460 240 720 Output: Urine 650 200 Other: Voiding Method Toilet Toilet Urinal Urinal # Voids 1 450 450 - Labs CBC & Chem 7: 08/02/23 10:18 08/02/23 10:18 Labs: Abnormal Lab Results - Last 24 Hours (Table) 08/01/23 Range/Units 08:33 Sodium 136 L (137-145) mmol/L BUN 25 H (9-20) mg/dL Creatinine 0.52 L (0.66-1.25) mg/dL Glucose 243 H (74-99) mg/dL Microbiology - Last 24 Hours (Table) 07/31/23 02:47 Blood Culture - Preliminary Blood 07/31/23 03:25 Blood Culture Gram Stain - Preliminary Blood Blood Culture - Preliminary
--- NOTE | 2023-08-02 12:58 | P.PN ---
Subjective Progress Note Date: 08/02/23 Principal diagnosis: Acute hypoxic respiratory failure and recurrent right-sided pleural effusion with metastatic colon cancer This is a 72-year-old male patient with a known history of chronic obstructive pulmonary disease, bladder cancer with previous transurethral resection, paroxysmal atrial fibrillation, hyperlipidemia, hypertension, CVA/TIA, former smoker. He also has a history of metastatic colon cancer with diffuse pulmonary involvement and metastasis to the brain. He has been having issues with recurrent right-sided pleural effusion and had undergone a thoracentesis on 07/07/23 with 2 L of serosanguineous fluid removed. The repeat presented here to the emergency room this morning with increasing shortness of breath. He initially required BiPAP support 10/6 and 50% FiO2. Ultrasound of the right chest did reveal a significant 13.3 cm pocket. White count 11.1. Hemoglobin 12.1. Sodium 137. Potassium 4.7. Bicarb 25. BUN 24. Creatinine 0.59. Glucose 168. Troponin 0.157, 0.1.6, BNP 911. Procalcitonin 0.48. He is seen today in consultation in the emergency department. He is currently sitting up on the stretcher. Awake and alert in no acute distress. He is maintaining good O2 saturations in the 90s on 3 L/m per nasal cannula. He's been afebrile. Hemodynamically stable. Initiated on bronchodilators, steroids, vancomycin and cefepime. Reevaluated today on 08/01/23, patient is feeling better, he underwent Pleurx catheter placement on the right side, and significant amount of fluid was drained. However his blood cultures are positive for gram-positive cocci in clusters and the patient is presently on vancomycin as well as cefepime. Pulmonary-laws is feeling great, no cough no wheezing no shortness of breath WBC is 10.5 hemoglobin 11.1 basic metabolic profile is normal and renal profile is normal. Patient was reevaluated today on 08/02/23, doing fairly well, patient is relatively asymptomatic, however the patient is now being treated for acute gram-positive bacteremia, patient was found to have gram-positive cocci in clusters in his blood, final report is pending, patient in the meantime remains on cefepime and vancomycin. Clinically, the patient looks fine, does not seem to be septic, labs are basically unremarkable including a relatively normal CBC and the relatively normal basic metabolic profile. Chest x-ray continues to show known bilateral pulmonary nodules along with a mass in the right lower lobe with small right-sided pleural effusion much decreased after placement of a Pleurx catheter. Patient is on room air, hemodynamically stable, O2 sats is 93% on room air, blood pressure is 135/74. O2 saturation is 93% Objective - Vital Signs Vital signs: Vital Signs Temp 97.8 F 08/02/23 08:00 Pulse 84 08/02/23 12:38 Resp 16 08/02/23 12:00 BP 135/74 08/02/23 12:00 Pulse Ox 93 L 08/02/23 12:00 FiO2 50 08/02/23 04:33 Intake & Output 08/01/23 08/02/23 08/02/23 18:59 06:59 18:59 Intake Total 980 810 720 Output Total 650 200 Balance 330 610 720 Weight 111.3 kg Intake: IV 20 20 Invasive Line 2 10 Invasive Line 3 10 20 Intake, IV Titration 500 550 Amount Cefepime 1 gm In Sodium 50 Chloride 0.9% 50 ml @ 12. 5 mls/hr IVPB Q12H [facility] Rx #:[id number] Vancomycin 1,500 mg In 500 Sodium Chloride 0.9% 500 ml 500 ml @ 167 mls/hr IVPB Q8H [facility] Rx#: [id number] Vancomycin 1,750 mg In 500 Sodium Chloride 0.9% 500 ml 500 ml @ 167 mls/hr IVPB Q8H [facility] Rx#: [id number] Oral 460 240 720 Output: Urine 650 200 Other: Voiding Method Toilet Toilet Toilet Urinal Urinal Urinal # Voids 1 450 450 - Exam GENERAL EXAM: Revealed 72-year-old white male in no distress on room air. Head: Atraumatic normocephalic HEENT: PERRLA, EOMI, anicteric, no neck masses, no JVD. CHEST: No chest wall deformity. LUNGS: Diminished breath sounds at the bases no crackles or rhonchi or wheezes right-sided Pleurx catheter is noted CVS: S1 and S2 normal with no audible murmur, regular rhythm. ABDOMEN: No hepatosplenomegaly, normal bowel sounds, no guarding or rigidity. SKIN: No rashes CENTRAL NERVOUS SYSTEM: No focal deficits, tone is normal in all 4 extremities. EXTREMITIES: There is no peripheral edema. No clubbing, no cyanosis. Peripheral pulses are intact. - Labs CBC & Chem 7: 08/02/23 10:18 08/02/23 10:18 Labs: Abnormal Lab Results - Last 24 Hours (Table) 08/02/23 08/02/23 08/02/23 Range/Units 10:18 10:18 10:18 RBC 3.77 L (4.30-5.90) m/uL Hgb 10.3 L (13.0-17.5) gm/dL Hct 32.8 L (39.0-53.0) % RDW 16.4 H (11.5-15.5) % Sodium 136 L (137-145) mmol/L Chloride 97 L (98-107) mmol/L Creatinine 0.58 L 0.58 L (0.66-1.25) mg/dL Glucose 311 H (74-99) mg/dL Microbiology - Last 24 Hours (Table) 07/31/23 02:47 Blood Culture - Preliminary Blood Assessment and Plan Assessment: Impression: Gram-positive bacteremia, final identification and sensitivities are pending Acute hypoxic respiratory failure secondary to recurrent right-sided pleural effusion, status post Pleurx catheter placement Metastatic colon cancer involving [employer] metastasis. Stage IV Chronic obstructive lung disease History of bladder cardiac cancer Nephrolithiasis and left-sided hydronephrosis Dyslipidemia Paroxysmal atrial fibrillation Benign essential hypertension History of CVA Ex-smoker Recommendation: Continue antibiotics for his bacteremia patient is on vancomycin and cefepime, being followed by infectious disease Recheck blood cultures Continue Pleurx catheter drainage every other day or when he goes home possibly every few days Continue bronchodilators and steroids Not quite ready for discharge planning until the blood cultures issue is fully evaluated, again the patient is being followed by ID on the case Time with Patient: Less than 30
[2023-08-02] MEDS: ATORVASTATIN 40 MG TAB PO SCH (21:14)
[2023-08-02] MEDS: DULoxetine HCL 60 MG CAPSULE.DR PO SCH (21:14)
[2023-08-02] MEDS: PANTOPRAZOLE 40 MG TABLET PO SCH (21:14)
[2023-08-02] MEDS: MONTELUKAST 10 MG TAB PO SCH (21:14)
[2023-08-02] MEDS: TAMSULOSIN 0.4 MG CAP.ER.24H PO SCH (21:14)
[2023-08-03] MEDS: CEFEPIME 1 GM in SODIUM CHLORIDE 0.9% 50 ML IVPB SCH (01:45)
[2023-08-03] MEDS: VANCOMYCIN 1,500 MG in SODIUM CHLORIDE 0.9% 500 ML 500 ML IVPB SCH ×2 (04:30→11:34)
[2023-08-03] MEDS: HYDROcodone/APAP 10-325MG 1 EACH TAB PO PRN (06:29)
[2023-08-03] MEDS: methylPREDNISolone SOD SUCCI 125 MG/2 ML VIAL IV SCH ×2 (06:29→11:33)
[2023-08-03] MEDS: levETIRAcetam 500 MG TAB PO SCH (08:24)
[2023-08-03] MEDS: AMIODARONE 200 MG TAB PO SCH (08:24)
[2023-08-03] MEDS: METOPROLOL TARTRATE 50 MG TAB PO SCH (08:24)
[2023-08-03] MEDS: MORPHINE SULFATE ER 30 MG TABLET PO SCH (08:24)
[2023-08-03 08:43] VITALS: BP 119/68; RESP 16; TEMP 97.8
[2023-08-03] MEDS: IPRATROPIUM-ALBUTEROL 3 ML NEB INHALATION SCH ×2 (08:45→11:41)
[2023-08-03 09:09] VITALS: PULSE 75
[2023-08-03 09:27] LABS: Anisocytosis Slight; HCT 34.8 % (39.0-53.0); HGB 10.4 gm/dL (13.0-17.5); Hypochromasia Moderate; MCHC 29.8 g/dL (31.0-37.0); MCV 87.4 fL (80.0-100.0); Mean Platelet Volume 7.4; Platelet Count 278 k/uL (150-450); RBC 3.99 m/uL (4.30-5.90); RDW 16.3 % (11.5-15.5); WBC 8.3 k/uL (3.8-10.6)
[2023-08-03 09:49] LABS: African American GFR (CKD) >90 (>60 ml/min/1.73 sqM); Non-African American GFR(CKD) >90 (>60 ml/min/1.73 sqM)
[2023-08-03 10:49] LABS: African American GFR (CKD) >90 (>60 ml/min/1.73 sqM); Anion Gap 9 mmol/L; Blood Urea Nitrogen 17 mg/dL (9-20); Calcium 8.6 mg/dL (8.4-10.2); Carbon Dioxide 28 mmol/L (22-30); Chloride 97 mmol/L (98-107); Glucose 277 mg/dL (74-99); Non-African American GFR(CKD) >90 (>60 ml/min/1.73 sqM); Potassium 4.6 mmol/L (3.5-5.1); Sodium 134 mmol/L (137-145)
[2023-08-03] MEDS ORDERED: DEXTROSE 50% SYRINGE 50 ML IVP PRN ×2 (11:44)
--- NOTE | 2023-08-03 11:47 | P.PN ---
Subjective Progress Note Date: 08/03/23 72-year-old male presents stage IV metastatic colon cancer with known metastases to liver, lung, and brain with recurrent right-sided pleural effusions, hx of a- fib not on anticoagulation due to low risk of stroke and high risk of bleeding with metastatic disease, patient is well known to our group with 4 hospitalizations in the last 2-3 months presents to the ER with difficulty in breathing, tachycardia. Was recently in the hospital for similar complaints. Found to have right pleural effusion as well as lung metastasis. In the ED, he underwent extensive evaluation. Tachypneic with RR of 36. Tachcardic with HR in the 160-170s. Required BiPAP to maintain O2 saturation greater than 92%. BP is low as 73/51. CBC showed RBC count 13.9 with neutrophilia. Coagulation panel within normal limits. VBG pH 7.45, pCO2 44. CMP sodium 135, chloride 96, BUN 23, creatinine 0.63, glucose 138, albumin 3. Lactic acid 3.2. Troponin 0.157. BNP 911. Urinalysis small leukocyte esterase. Chest x-ray showed right scattered airspace opacities with right pleural effusion. CTA chest enlarging right pleural effusion with increasing atelectasis, no PE, pulmonary metastatic disease, liver lesions. EKG atrial fibrillation with RVR ventricular rate 158. Patient was admitted for further management and workup. Started on Amiodarone and Cardizem drip in the ED for A-Fib with RVR with hypotension. Started on Empiric antibiotics with Vancomycin and Cefepime. Pulmonology, CT surgery and Cardiology consulted. Underwent PleurX catheter on 07/31. Symptoms dramatically improved after PleurX. Cardiology stopped the Car dizem drip and Amiodarone drip and started the patient on Amiodarone PO and Metoprolol PO. Blood culture came back positive for gram + cocci in clusters. ID consulted, recommended continuing Vancomycin and Cefepime, repeat BCx and BCx from his port. 08/03 Patient was seen and examined. Repeat blood cultures negative so far. Patient reports feeling well and would like to go home. CBC Hg 10.4, Hct 34.8. BMP Na 134, Cl 97, Cr 0.58, glu 277. General: non toxic, no distress, appears at stated age Derm: warm, dry Head: atraumatic, normocephalic, symmetric Eyes: EOMI, no lid lag, anicteric sclera Cardiovascular: S1S2 reg, no murmur Lungs: Decreased BS bilateral, no rhonchi, no rales , no accessory muscle use Ext: no gross muscle atrophy, no edema, no contractures Neuro: no focal neuro deficits Psych: Alert, oriented, appropriate affect Patient has a recurrently right pleural effusion in the setting of metastatic lung CA with severe exacerbation or progression of disease which poses a threat to life or bodily function. Gram positive bacteremia: Possible contaminant. Vancomycin and Cefepime as below. Repeat BCx negative so far at 24H. ID on board. Acute hypoxic respiratory failure: Currently weaned down to nasal cannula. DuoNeb scheduled. Solumedrol 60 mg IV Q6H. PleurX catheter placed 07/31. Pulmonology and CT surgery on board. Large right pleural effuion: Management as above. Atrial fibrillation with RVR: Cardizem and Amiodarone drip discontinued by Cardiology. Metoprolol 50 mg PO TID and Amiodarone 200 mg PO BID. Hyperglycemia: A1c 6.0. Likely steroid induced. ISS. Accuchecks ACHS. Hypoglycemic precautions. Sepsis with concerns of PNA: Vancomycin dosed per pharmacy and Cefepime 1g IV BID. Troponin elevation: Demand ischemia from A-Fib with RVR. Flat. ACS ruled out. Cardiology on board. Lactic acidosis: In the setting of underlying malignancy. Trend until negative. CODE STATUS: FULL CODE. DVT Prophylaxis: SCDs for now given possible procedure. GI Prophylaxis: Protonix PO Designated medical POA if patient is not able to make medical decisions for themselves: Objective - Vital Signs Vital signs: Vital Signs Temp 97.8 F 08/03/23 08:23 Pulse 75 08/03/23 08:59 Resp 16 08/03/23 08:23 BP 119/68 08/03/23 08:23 Pulse Ox 96 08/03/23 08:23 FiO2 50 08/02/23 04:33 Intake & Output 08/02/23 08/03/23 08/03/23 18:59 06:59 18:59 Intake Total 1230 0 10 Output Total 200 Balance 1230 -200 10 Weight 121.8 kg Intake: IV 10 Invasive Line 2 10 Oral 1230 0 Output: Urine 200 Other: Voiding Method Toilet Toilet Toilet Urinal Urinal Urinal # Voids 450 - Labs CBC & Chem 7: 08/03/23 08:14 08/03/23 08:14 Labs: Abnormal Lab Results - Last 24 Hours (Table) 08/03/23 08/03/23 08/03/23 Range/Units 08:14 08:14 08:14 RBC 3.99 L (4.30-5.90) m/uL Hgb 10.4 L (13.0-17.5) gm/dL Hct 34.8 L (39.0-53.0) % MCHC 29.8 L (31.0-37.0) g/dL RDW 16.3 H (11.5-15.5) % Sodium 134 L (137-145) mmol/L Chloride 97 L (98-107) mmol/L Creatinine 0.56 L 0.58 L (0.66-1.25) mg/dL Glucose 277 H (74-99) mg/dL Microbiology - Last 24 Hours (Table) 08/01/23 08:33 Blood Culture - Preliminary Blood 07/31/23 02:47 Blood Culture - Preliminary Blood
--- NOTE | 2023-08-03 11:54 | P.DS ---
Providers Date of admission: 07/30/23 23:15 Expected date of discharge: 08/03/23 Attending physician: Anil Henley MD Consults: 07/30/23 23:15 Consult Physician Routine Consulting Provider: [facility] Consult Reason/Comments: afib with rvr Do you want consulting provider notified?: Yes Consult Physician Routine Consulting Provider: Robert Guthrie Consult Reason/Comments: pleural effusion, resp failure on bipap Do you want consulting provider notified?: Yes 07/31/23 08:31 Consult Physician Routine Consulting Provider: Kareem Gomez Consult Reason/Comments: ? Pleurx placement Do you want consulting provider notified?: Yes 08/01/23 12:40 Consult Physician Routine Consulting Provider: Khloe Hirsch Consult Reason/Comments: G+ bacteremia Do you want consulting provider notified?: Yes Primary care physician: [facility] Course: 72-year-old male presents stage IV metastatic colon cancer with known metastases to liver, lung, and brain with recurrent right-sided pleural effusions, hx of a- fib not on anticoagulation due to low risk of stroke and high risk of bleeding with metastatic disease, patient is well known to our group with 4 hospitalizations in the last 2-3 months presents to the ER with difficulty in breathing, tachycardia. Was recently in the hospital for similar complaints. Found to have right pleural effusion as well as lung metastasis. In the ED, he underwent extensive evaluation. Tachypneic with RR of 36. Tachcardic with HR in the 160-170s. Required BiPAP to maintain O2 saturation greater than 92%. BP is low as 73/51. CBC showed RBC count 13.9 with neutrophilia. Coagulation panel within normal limits. VBG pH 7.45, pCO2 44. CMP sodium 135, chloride 96, BUN 23, creatinine 0.63, glucose 138, albumin 3. Lactic acid 3.2. Troponin 0.157. BNP 911. Urinalysis small leukocyte esterase. Chest x-ray showed right scattered airspace opacities with right pleural effusion. CTA chest enlarging right pleural effusion with increasing atelectasis, no PE, pulmonary metastatic disease, liver lesions. EKG atrial fibrillation with RVR ventricular rate 158. Patient was admitted for further management and workup. Started on Amiodarone and Cardizem drip in the ED for A-Fib with RVR with hypotension. Started on Empiric antibiotics with Vancomycin and Cefepime. Pulmonology, CT surgery and Cardiology consulted. Underwent PleurX catheter on 07/31. Symptoms dramatically improved after PleurX. Cardiology stopped the Cardizem drip and Amiodarone drip and started the patient on Amiodarone PO and Metoprolol PO. Blood culture came back positive for gram + cocci in clusters. ID consulted, recommended continuing Vancomycin and Cefepime, repeat BCx and BCx from his port. 08/03 Patient was seen and examined. Repeat blood cultures negative so far. Patient reports feeling well and would like to go home. Discussed with Dr. Hirsch, appears to be contaminant, cleared for discharge. CBC Hg 10.4, Hct 34.8. BMP Na 134, Cl 97, Cr 0.58, glu 277. PleurX instructions given by CT surgery on discharge instructions. Cardiology recommends amiodarone 200 mg twice daily for 1 week, then reduce to 200 mg daily for 6 weeks, and then 100 mg thereafter. Follow up with Cardiology, Pulmonology, CT surgery within 1 week of discharge. General: non toxic, no distress, appears at stated age Derm: warm, dry Head: atraumatic, normocephalic, symmetric Eyes: EOMI, no lid lag, anicteric sclera Cardiovascular: S1S2 reg, no murmur Lungs: Decreased BS bilateral, no rhonchi, no rales , no accessory muscle use Ext: no gross muscle atrophy, no edema, no contractures Neuro: no focal neuro deficits Psych: Alert, oriented, appropriate affect Discharge Diagnosis: Gram positive bacteremia: Likely contaminant. Acute hypoxic respiratory failure: PleurX catheter placed 07/31. Large right pleural effuion: Management as above. Atrial fibrillation with RVR: Metoprolol 50 mg PO TID and Amiodarone 200 mg PO BID. Cardiology recommends amiodarone 200 mg twice daily for 1 week, then reduce to 200 mg daily for 6 weeks, and then 100 mg thereafter. Hyperglycemia: A1c 6.0. Likely steroid induced. SIRS: Likely related to recurrent large right pleural effusion. Troponin elevation: Demand ischemia from A-Fib with RVR. Flat. ACS ruled out. Resolved: Lactic acidosis This complex discharge took 35 minutes to complete. Patient Condition at Discharge: Stable Plan - Discharge Summary New Discharge Prescriptions: New Amiodarone [Cordarone] 200 mg PO BID #60 tab Continue Cholecalciferol [Vitamin D3 (25 Mcg = 1000 Iu)] 25 mcg PO DAILY [place]-3 Fatty Acids [[place]-3] 4,000 mg PO DAILY DULoxetine HCL [Cymbalta] 60 mg PO HS Tamsulosin [Flomax] 0.4 mg PO HS Pregabalin [Lyrica] 75 mg PO BID Pantoprazole [Protonix] 40 mg PO HS Montelukast [Singulair] 10 mg PO HS Morphine Sulfate ER [Ms Contin] 30 mg PO BID Cyanocobalamin (Vitamin B-12) [Vitamin B-12] 1,000 mcg PO DAILY Albuterol Sulfate [Ventolin HFA] 1 - 2 puff INHALATION RT-Q4H PRN PRN Reason: Shortness Of Breath Garlic 1,000 mg PO DAILY Ipratropium-Albuterol Nebulize [Duoneb 0.5 mg-3 mg/3 ml Soln] 3 ml INHALATION RT-QID #0 Atorvastatin [Lipitor] 40 mg PO HS HYDROcodone/APAP 10-325MG [[place] 10-325] 1 tab PO Q6H PRN PRN Reason: Pain Prochlorperazine [Compazine] 10 mg PO Q6H PRN PRN Reason: Nausea guaiFENesin [Mucinex] 1,200 mg PO BID polyethylene glycoL 3350 [Miralax] 17 gm PO DAILY levETIRAcetam [Keppra] 500 mg PO Q12HR #60 tab dexAMETHasone ORAL [Hexadrol] See Taper PO DIRECTED Metoprolol Tartrate [Lopressor] 25 mg PO BID #60 tab Discharge Medication List Atorvastatin [Lipitor] 40 mg PO HS 06/12/23 [History] Cholecalciferol [Vitamin D3 (25 Mcg = 1000 Iu)] 25 mcg PO DAILY 06/12/23 [History] Cyanocobalamin (Vitamin B-12) [Vitamin B-12] 1,000 mcg PO DAILY 06/12/23 [History] DULoxetine HCL [Cymbalta] 60 mg PO HS 06/12/23 [History] HYDROcodone/APAP 10-325MG [[place] 10-325] 1 tab PO Q6H PRN 06/12/23 [History] Montelukast [Singulair] 10 mg PO HS 06/12/23 [History] Morphine Sulfate ER [Ms Contin] 30 mg PO BID 06/12/23 [History] [place]-3 Fatty Acids [[place]-3] 4,000 mg PO DAILY 06/12/23 [History] Pantoprazole [Protonix] 40 mg PO HS 06/12/23 [History] Pregabalin [Lyrica] 75 mg PO BID 06/12/23 [History] Prochlorperazine [Compazine] 10 mg PO Q6H PRN 06/12/23 [History] Tamsulosin [Flomax] 0.4 mg PO HS 06/12/23 [History] Albuterol Sulfate [Ventolin HFA] 1 - 2 puff INHALATION RT-Q4H PRN 07/06/23 [History] guaiFENesin [Mucinex] 1,200 mg PO BID 07/06/23 [History] polyethylene glycoL 3350 [Miralax] 17 gm PO DAILY 07/06/23 [History] levETIRAcetam [Keppra] 500 mg PO Q12HR #60 tab 07/10/23 [Rx] Garlic 1,000 mg PO DAILY 07/24/23 [History] dexAMETHasone ORAL [Hexadrol] See Taper PO DIRECTED 07/24/23 [History] Ipratropium-Albuterol Nebulize [Duoneb 0.5 mg-3 mg/3 ml Soln] 3 ml INHALATION RT-QID #0 07/26/23 [Rx] Metoprolol Tartrate [Lopressor] 25 mg PO BID #60 tab 07/26/23 [Rx] Amiodarone [Cordarone] 200 mg PO BID #60 tab 08/03/23 [Rx] Follow up Appointment(s)/Referral(s): Robert Guthrie MD [STAFF PHYSICIAN] - 1 Week Misael Hawk MD [STAFF PHYSICIAN] - 1 Week Jaskaran Nova MD [STAFF PHYSICIAN] - 1 Week Manuel Lopez MD [Primary Care Provider] - 1-2 days Activity/Diet/Wound Care/Special Instructions: Pleurx discharge instructions: 1. Home Care is ordered, they will obtain new bottles. 2. May shower after 24 hours, no tub baths/hot tubs. 3. Do not drain more than 1 liter or 1000 mL in 24 hours. 4. New drainage bottle needed with each drainage. 5. Drainage frequency dictated by patient symptoms, may be every day, every other day, weekly, or however often the patient is symptomatic. 6. Please notify LUBRICATOR GRANULATOR or office if temperature >101F, excessive pain at insertion site, drainage consistency changes to cloudy or smells bad, catheter falls out, or anything else that concerns you. 7. Contact surgery office with weekly drainage amounts. May fax the amounts. 8. Once drainage is less than 50 mL three times in a row, notify the surgery office for possible removal. Surgery office: , fax Continue oral amiodarone 200 mg twice daily for 1 week, then reduce to 200 mg d aily for 6 weeks, and then 100 mg thereafter Discharge Disposition: HOME SELF-CARE
[2023-08-03] MEDS ORDERED: INSULIN ASPART (NovoLOG) 100 UNIT/ML VIAL SQ SCH (12:30)
--- NOTE | 2023-08-03 12:39 | P.PN ---
Subjective Progress Note Date: 08/03/23 Principal diagnosis: Atrial fibrillation with RVR, shortness of breath. Acute hypoxic respiratory failure and recurrent right-sided pleural effusion with metastatic colon cancer This is a 72-year-old male patient with a known history of chronic obstructive pulmonary disease, bladder cancer with previous transurethral resection, paroxysmal atrial fibrillation, hyperlipidemia, hypertension, CVA/TIA, former smoker. He also has a history of metastatic colon cancer with diffuse pulmonary involvement and metastasis to the brain. He has been having issues with recurrent right-sided pleural effusion and had undergone a thoracentesis on 07/07/23 with 2 L of serosanguineous fluid removed. The repeat presented here to the emergency room this morning with increasing shortness of breath. He initially required BiPAP support / and 50% FiO2. Ultrasound of the right chest did reveal a significant 13.3 cm pocket. White count 11.1. Hemoglobin 12.1. Sodium 137. Potassium 4.7. Bicarb 25. BUN 24. Creatinine 0.59. Glucose 168. Troponin 0.157, 0.1.6, BNP 911. Procalcitonin 0.48. He is seen today in consultation in the emergency department. He is currently sitting up on the stretcher. Awake and alert in no acute distress. He is maintaining good O2 saturations in the 90s on 3 L/m per nasal cannula. He's been afebrile. Hemodynamically stable. Initiated on bronchodilators, steroids, vancomycin and cefepime. Reevaluated today on 08/01/23, patient is feeling better, he underwent Pleurx catheter placement on the right side, and significant amount of fluid was drained. However his blood cultures are positive for gram-positive cocci in clusters and the patient is presently on vancomycin as well as cefepime. Pulmonary-laws is feeling great, no cough no wheezing no shortness of breath WBC is 10.5 hemoglobin 11.1 basic metabolic profile is normal and renal profile is normal. Patient was reevaluated today on 08/02/23, doing fairly well, patient is relati vely asymptomatic, however the patient is now being treated for acute gram- positive bacteremia, patient was found to have gram-positive cocci in clusters in his blood, final report is pending, patient in the meantime remains on cefepime and vancomycin. Clinically, the patient looks fine, does not seem to be septic, labs are basically unremarkable including a relatively normal CBC and the relatively normal basic metabolic profile. Chest x-ray continues to show known bilateral pulmonary nodules along with a mass in the right lower lobe with small right-sided pleural effusion much decreased after placement of a Pleurx catheter. Patient is on room air, hemodynamically stable, O2 sats is 93% on room air, blood pressure is 135/74. O2 saturation is 93% Progress note 08/03/2023. The patient is seen today in room 360. He's currently on 3 L of oxygen. He is receiving vancomycin and cefepime. He is also receiving Solu-Medrol, duo nebs, and, did use the BiPAP, for a brief period of time last night, with settings of 12/5 and 50%. He states that he does not like the elevated pressure, on his facial area, and it makes him feel claustrophobic. Labs today include a white count of 8.3, hemoglobin 10.4, hematocrit 34.8, and a platelet count of 278,000. Sodium 134, potassium 4.6, chlorides 97, CO2 28, BUN 17, and creatinine 0.58. Glucose 277. Calcium is 8.6. Blood cultures are positive for gram-positive cocci in clusters. The patient is currently on cefepime and vancomycin. Objective - Vital Signs Vital signs: Vital Signs Temp 97.8 F 08/03/23 08:23 Pulse 75 08/03/23 08:59 Resp 16 08/03/23 08:23 BP 119/68 08/03/23 08:23 Pulse Ox 96 08/03/23 08:23 FiO2 50 08/02/23 04:33 Intake & Output 08/02/23 08/03/23 08/03/23 18:59 06:59 18:59 Intake Total 1230 0 10 Output Total 200 Balance 1230 -200 10 Weight 121.8 kg Intake: IV 10 Invasive Line 2 10 Oral 1230 0 Output: Urine 200 Other: Voiding Method Toilet Toilet Toilet Urinal Urinal Urinal # Voids 450 - Exam No acute distress, oriented 3. No respiratory distress, currently on 3 L of oxygen. The patient is sitting in a chair next to his hospital bed. HEENT examination is grossly unremarkable. Mucous membranes are moist. No oral lesions. Neck supple. Full range of motion. No adenopathy thyromegaly or neck vein distention. Cardiovascular examination reveals regular rhythm rate. S1-S2 normal. No S3 or S4. No discernible murmur noted. Heart sounds are distant. Heart rate 75 bpm. Lungs reveal clear breath sounds. Her sounds are equal bilaterally. No adventitious lung sounds including wheezes rhonchi or crackles. Pleurx catheter is noted. 3 L saturation is 96%. Abdomen soft bowel sounds are heard. No masses or tenderness. Extremities are intact. No cyanosis clubbing or edema. Skin is without rash or lesion. Neurologic examination is brief but nonfocal. - Labs CBC & Chem 7: 08/03/23 08:14 08/03/23 08:14 Labs: Abnormal Lab Results - Last 24 Hours (Table) 08/03/23 08/03/23 08/03/23 Range/Units 08:14 08:14 08:14 RBC 3.99 L (4.30-5.90) m/uL Hgb 10.4 L (13.0-17.5) gm/dL Hct 34.8 L (39.0-53.0) % MCHC 29.8 L (31.0-37.0) g/dL RDW 16.3 H (11.5-15.5) % Sodium 134 L (137-145) mmol/L Chloride 97 L (98-107) mmol/L Creatinine 0.56 L 0.58 L (0.66-1.25) mg/dL Glucose 277 H (74-99) mg/dL Microbiology - Last 24 Hours (Table) 08/01/23 08:33 Blood Culture - Preliminary Blood 07/31/23 02:47 Blood Culture - Preliminary Blood Assessment and Plan Assessment: Gram-positive bacteremia, currently on vancomycin and cefepime. Acute hypoxemic respiratory failure secondary to right-sided pleural effusion, status post Pleurx catheter placement. Metastatic colon cancer with TESTING COORDINATOR metastasis, stage IV. Chronic obstructive pulmonary disease. History of bladder cancer. Nephrolithiasis with left-sided hydronephrosis. Dyslipidemia. Paroxysmal atrial fibrillation. Benign essential hypertension. History of CVA. Ex-smoker. Plan: Plan dated 08/03/2023. The patient is currently on vancomycin and cefepime. Blood cultures were positive for gram-positive cocci in clusters. It has yet to be identified. The patient is on bronchodilators and corticosteroids. Labs, x-rays, and medications are reviewed. He continues on oxygen at 3 L. He did not care for the BiPAP device, and used it only briefly last night. Additional recommendations and suggestions are forthcoming prognosis is guarded. We will continue to follow the patient, and make recommendations along the way. Time with Patient: Less than 30
--- NOTE | 2023-08-03 14:48 | CDI ---
Documentation Clarification Form Date: From: Dominique Meléndez Phone: [phone] Admit Date: 07/30/2023 11:15:00 PM Patient Name: Skip Hernandez Visit Number: [id number] Discharge Date: ATTENTION: The Clinical Documentation Specialists (CDI) and [facility] Coding Staff appreciate your assistance in clarifying documentation. Please respond to the clarification below the line at the bottom and electronically sign. The CDI & [facility] Coding staff will review the response and follow-up if needed. Please note: Queries are made part of the Legal Health Record. If you have any questions, please contact the author of this message via ITS. Dr. Misael Hawk There is documentation of "Demand ischemia from A-Fib" - in the progress note on 07/31. Additional clarification is requested. History/Risk Factors: "72-year-old male presents with the department for any difficulty in breathing, tachycardia. He has a history of A. fib. Is not on blood thinners. Has a history of metastatic cancer." - Per ED Note on 07/30 Clinical Indicators: "Troponin elevation: Demand ischemia from A-Fib with RVR. Flat. ACS ruled out. Cardiology on board." - Per Progress Note on 07/31 "EKG atrial fibrillation with ventricular rate of 158" "Denies chest pain, Denies shortness of breath, no orthopnea, PND or palpitations." "Elevated troponin secondary to A. fib with RVR" - Per Cardiology Note on 07/31 Treatment: Per Cardiology Note on 07/31 "Resume patient's home cardiac medications Increase metoprolol to 75 mg twice daily Start patient on amiodarone 200 mg twice daily No need to repeat echocardiogram" Can you please clarify? [ xx ] Type 2 NH due to Atrial Fibrillation with RVR [ ] Non-ischemic with acute myocardial injury [ ] No additional diagnosis/Not clinically significant [ ] Other, please specify [ ] Unable to determine MTDD
[2023-08-04] MEDS ORDERED: VANCOMYCIN TROUGH DUE 1 EACH MISC MISCELLANE ONE (11:00)
--- NOTE | 2023-08-10 12:01 | P.PN ---
Subjective Progress Note Date: 08/02/23 Principal diagnosis: Reason for follow-up is positive blood culture Patient is a 72-year-old male with a past medical history significant for COPD stage IV colon cancer lung cancer hypertension reflux CVA TIA in this patient who did have a Mediport patient was brought into the hospital for evaluation of difficulty breathing and tachycardia, patient was afebrile on pre sentation to the hospital white count was mildly elevated, CT angiogram of the chest enlarging right effusion no evidence of PE pulmonary metastatic disease, blood cultures came back positive with gram-positive cocci ID consulted for further management. On today's evaluation that is 08/02/2023, patient remains to be afebrile, the patient is breathing comfortably on 3 L nasal cannula oxygen patient denies having any chest pain he is breathing more comfortably occasional cough no nausea vomiting no abdominal pain or diarrhea. The patient white count 8.4, creatinine 0.58 Vanco trough is 21.0 blood culture with gram-positive identification pending, repeat blood cultures pending Objective - Vital Signs Vital signs: Vital Signs Temp 97.8 F 08/03/23 08:23 Pulse 75 08/03/23 08:59 Resp 16 08/03/23 08:23 BP 119/68 08/03/23 08:23 Pulse Ox 96 08/03/23 08:23 FiO2 50 08/02/23 04:33 Intake & Output 08/02/23 08/03/23 08/03/23 18:59 06:59 18:59 Intake Total 1230 0 10 Output Total 200 Balance 1230 -200 10 Weight 121.8 kg Intake: IV 10 Invasive Line 2 10 Oral 1230 0 Output: Urine 200 Other: Voiding Method Toilet Toilet Toilet Urinal Urinal Urinal # Voids 450 - Exam GENERAL DESCRIPTION: An elderly male lying in bed in no distress RESPIRATORY SYSTEM: Unlabored breathing , decreased breath sounds at bases HEART: S1 S2 regular rate and rhythm , ABDOMEN: Soft , no tenderness EXTREMITIES: No edema feet - Labs CBC & Chem 7: 08/03/23 08:14 08/03/23 08:14 Labs: Abnormal Lab Results - Last 24 Hours (Table) 08/03/23 08/03/23 08/03/23 Range/Units 08:14 08:14 08:14 RBC 3.99 L (4.30-5.90) m/uL Hgb 10.4 L (13.0-17.5) gm/dL Hct 34.8 L (39.0-53.0) % MCHC 29.8 L (31.0-37.0) g/dL RDW 16.3 H (11.5-15.5) % Sodium 134 L (137-145) mmol/L Chloride 97 L (98-107) mmol/L Creatinine 0.56 L 0.58 L (0.66-1.25) mg/dL Glucose 277 H (74-99) mg/dL Microbiology - Last 24 Hours (Table) 08/01/23 08:33 Blood Culture - Preliminary Blood 07/31/23 02:47 Blood Culture - Preliminary Blood Assessment and Plan (1) Leukocytosis Status: Acute Code(s): D72.829 - ELEVATED WHITE BLOOD CELL COUNT, UNSPECIFIED SNOMED Code(s): 751376461 (2) Positive blood culture Status: Acute Code(s): R78.81 - BACTEREMIA SNOMED Code(s): 511139207 Plan: 1patient with a positive blood culture with gram-positive cocci with ID sensitivities pending in this patient who did have a stage IV colon cancer with mets to the lungs he also have a Mediport presented to hospital with increasing shortness of breath did have elevated white count but no fever with a question of possible skin contamination however the patient does have a port and would like to make sure no evidence of any port infection 2-ID sensitivities on the positive blood culture pending repeat blood cultures so far pending 3-the patient white count has normalized 4-patient to continue with vancomycin and cefepime while waiting for the culture to finalize Dictation was produced using [employer] dictation software. please excuse any grammatical, word or spelling errors. Time with Patient: Less than 30
--- NOTE | 2023-08-10 12:07 | P.PN ---
Subjective Progress Note Date: 08/03/23 Principal diagnosis: Reason for follow-up is positive blood culture Patient is a 72-year-old male with a past medical history significant for COPD stage IV colon cancer lung cancer hypertension reflux CVA TIA in this patient who did have a Mediport patient was brought into the hospital for evaluation of difficulty breathing and tachycardia, patient was afebrile on pre sentation to the hospital white count was mildly elevated, CT angiogram of the chest enlarging right effusion no evidence of PE pulmonary metastatic disease, blood cultures came back positive with gram-positive cocci ID consulted for further management. On today's evaluation that is 08/03/2023, patient remains to be afebrile, the patient is breathing comfortably on 3 L nasal cannula oxygen patient denies having any chest pain he is breathing more comfortably occasional cough no nausea vomiting no abdominal pain or diarrhea. Patient is feeling better wants to go home The patient white count 8.3, creatinine 0.58 Vanco trough is 21.0 blood culture with gram-positive identification pending, repeat blood cultures pending Objective - Vital Signs Vital signs: Vital Signs Temp 97.8 F 08/03/23 08:23 Pulse 75 08/03/23 08:59 Resp 16 08/03/23 08:23 BP 119/68 08/03/23 08:23 Pulse Ox 96 08/03/23 08:23 FiO2 50 08/02/23 04:33 Intake & Output 08/02/23 08/03/23 08/03/23 18:59 06:59 18:59 Intake Total 1230 0 10 Output Total 200 Balance 1230 -200 10 Weight 121.8 kg Intake: IV 10 Invasive Line 2 10 Oral 1230 0 Output: Urine 200 Other: Voiding Method Toilet Toilet Toilet Urinal Urinal Urinal # Voids 450 - Exam GENERAL DESCRIPTION: An elderly male lying in bed in no distress RESPIRATORY SYSTEM: Unlabored breathing , decreased breath sounds at bases HEART: S1 S2 regular rate and rhythm , ABDOMEN: Soft , no tenderness EXTREMITIES: No edema feet - Labs CBC & Chem 7: 08/03/23 08:14 08/03/23 08:14 Labs: Abnormal Lab Results - Last 24 Hours (Table) 08/03/23 08/03/23 08/03/23 Range/Units 08:14 08:14 08:14 RBC 3.99 L (4.30-5.90) m/uL Hgb 10.4 L (13.0-17.5) gm/dL Hct 34.8 L (39.0-53.0) % MCHC 29.8 L (31.0-37.0) g/dL RDW 16.3 H (11.5-15.5) % Sodium 134 L (137-145) mmol/L Chloride 97 L (98-107) mmol/L Creatinine 0.56 L 0.58 L (0.66-1.25) mg/dL Glucose 277 H (74-99) mg/dL Microbiology - Last 24 Hours (Table) 08/01/23 08:33 Blood Culture - Preliminary Blood 07/31/23 02:47 Blood Culture - Preliminary Blood Assessment and Plan (1) Leukocytosis Status: Acute Code(s): D72.829 - ELEVATED WHITE BLOOD CELL COUNT, UNSPECIFIED SNOMED Code(s): 345611530 (2) Positive blood culture Status: Acute Code(s): R78.81 - BACTEREMIA SNOMED Code(s): 984092257 Plan: 1patient with a positive blood culture with gram-positive cocci with ID sensitivities pending in this patient who did have a stage IV colon cancer with mets to the lungs he also have a Mediport presented to hospital with increasing shortness of breath did have elevated white count but no fever with a question of possible skin contamination however the patient does have a port and would like to make sure no evidence of any port infection 2-ID sensitivities on the positive blood culture pending repeat blood cultures so far negative 3-the patient white count has normalized 4-patient positive blood culture more likely contamination as the patient insisting on going home recommend to discontinue vancomycin discussed with admitting team Dictation was produced using [employer] dictation software. please excuse any grammatical, word or spelling errors. Time with Patient: Less than 30
== END 2023-08-03 15:03 | disposition home health service (06) | DRG 180 ==
LOC: EC 18:50 → 3SCARD 23:15
PROVIDERS: ADMIT Internal Medicine; ATTEND Internal Medicine
PROC: 5A09357 Assistance with Respiratory Ventilation, Less than 24 Consecutive Hours, Continuous Positive Airway Pressure (ICD-10-PCS; 2023-07-30)
PROC: 0W9930Z Drainage of Right Pleural Cavity with Drainage Device, Percutaneous Approach (ICD-10-PCS; principal; 2023-07-31 14:35)
DX: C78.00 Secondary malignant neoplasm of unspecified lung (principal); I21.A1 Myocardial infarction type 2; J96.21 Acute and chronic respiratory failure with hypoxia; J91.0 Malignant pleural effusion; N13.2 Hydronephrosis with renal and ureteral calculous obstruction; J98.11 Atelectasis; J44.1 Chronic obstructive pulmonary disease with (acute) exacerbation; E87.20 Acidosis, unspecified; C79.31 Secondary malignant neoplasm of brain; C18.9 Malignant neoplasm of colon, unspecified; C78.7 Secondary malignant neoplasm of liver and intrahepatic bile duct; R65.10 Systemic inflammatory response syndrome (SIRS) of non-infectious origin without acute organ dysfunction; Z96.60 Presence of unspecified orthopedic joint implant; I95.9 Hypotension, unspecified; K21.9 Gastro-esophageal reflux disease without esophagitis; T38.0X5A Adverse effect of glucocorticoids and synthetic analogues, initial encounter; E86.0 Dehydration; E78.5 Hyperlipidemia, unspecified; I48.0 Paroxysmal atrial fibrillation; I10 Essential (primary) hypertension; Z87.891 Personal history of nicotine dependence; Z86.73 Personal history of transient ischemic attack (TIA), and cerebral infarction without residual deficits; Z79.899 Other long term (current) drug therapy
CPT/HCPCS: 36415; 71045; 71275; 76604; 80048; 80053; 80202; 81001; 82565; 82803; 83605; 83735; 83880; 84145; 84484; 85025; 85027; 85610; 85730; 87040; 88108; 88305; 88341; 88342; 93005; 94640; 94660; 94760; 96361; 96365; 96366; 96367; 96368; 96375; 96376; 99291

== ENCOUNTER 2023-08-06 11:58 | Inpatient (IN) | payer MEDICARE ==
[2023-08-06] MEDS: IPRATROPIUM-ALBUTEROL 3 ML NEB INHALATION STA (12:31)
[2023-08-06 12:38] LABS: Anisocytosis Slight; Basophils % (A) 0 %; Eosinophils # (A) 0.1 k/uL (0-0.7); Eosinophils % (A) 0 %; HCT 36.2 % (39.0-53.0); HGB 11.6 gm/dL (13.0-17.5); Lymphocytes # (A) 0.9 k/uL (1.0-4.8); Lymphocytes % (A) 8 %; MCH 26.6 pg (25.0-35.0); MCHC 32.2 g/dL (31.0-37.0); MCV 82.7 fL (80.0-100.0); Mean Platelet Volume 7.8; Monocytes # (A) 0.1 k/uL (0-1.0); Monocytes % (A) 1 %; Neutrophils # (A) 10.7 k/uL (1.3-7.7); Neutrophils % (A) 90 %; Platelet Count 318 k/uL (150-450); RBC 4.37 m/uL (4.30-5.90); RDW 16.5 % (11.5-15.5); WBC 11.9 k/uL (3.8-10.6)
[2023-08-06 12:52] LABS: ALT 71 U/L (4-49); AST 39 U/L (17-59); African American GFR (CKD) >90 (>60 ml/min/1.73 sqM); Albumin 2.6 g/dL (3.5-5.0); Alkaline Phosphatase 150 U/L (38-126); Anion Gap 7 mmol/L; Blood Urea Nitrogen 31 mg/dL (9-20); Calcium 8.5 mg/dL (8.4-10.2); Carbon Dioxide 33 mmol/L (22-30); Chloride 95 mmol/L (98-107); Glucose 145 mg/dL (74-99); Magnesium 1.8 mg/dL (1.6-2.3); Non-African American GFR(CKD) >90 (>60 ml/min/1.73 sqM); Potassium 4.5 mmol/L (3.5-5.1); Sodium 135 mmol/L (137-145); Total Bilirubin 0.6 mg/dL (0.2-1.3); Total Protein 5.6 g/dL (6.3-8.2)
[2023-08-06 12:57] LABS: Partial Thromboplastin Time 23.5 sec (22.0-30.0); Prothrombin Time 10.7 sec (10.0-12.5)
[2023-08-06 12:59] LABS: NT-Pro-B-Type Natriuretic Pept 3430 pg/mL
--- NOTE | 2023-08-06 13:02 | ED ---
SOB HPI - General Chief Complaint: Shortness of Breath Stated Complaint: PREETI Time Seen by Provider: 08/06/23 12:08 Source: EMS, RN notes reviewed, old records reviewed Mode of arrival: EMS Limitations: no limitations - History of Present Illness Initial Comments: This is a 72-year-old male to the emergency department for evaluation today. Patient presents today for evaluation regards to shortness of breath hypoxia. Patient is very confused and unable to provide history history obtained by states patient's been altered with increasing work of breathing throughout the day MD Complaint: shortness of breath, cough -: hour(s) Radiation: back Severity: moderate Severity scale (1-10): 7 Quality: throbbing Consistency: constant Improves With: nothing Known History Of: COPD, asthma Context: recent URI, anxiety, recent illness Associated Symptoms: denies other symptoms - Related Data Home Medications Medication Instructions Recorded Confirmed Atorvastatin [Lipitor] 40 mg PO HS 06/12/23 08/06/23 Cholecalciferol [Vitamin D3 (25 25 mcg PO DAILY 06/12/23 08/06/23 Mcg = 1000 Iu)] Cyanocobalamin (Vitamin B-12) 1,000 mcg PO DAILY 06/12/23 08/06/23 [Vitamin B-12] DULoxetine HCL [Cymbalta] 60 mg PO HS 06/12/23 08/06/23 HYDROcodone/APAP 10-325MG [[place] 1 tab PO Q6H PRN 06/12/23 08/06/23 10-325] Montelukast [Singulair] 10 mg PO HS 06/12/23 08/06/23 Morphine Sulfate ER [Ms Contin] 30 mg PO BID 06/12/23 08/06/23 [place]-3 Fatty Acids [[place]-3] 4,000 mg PO DAILY 06/12/23 08/06/23 Pantoprazole [Protonix] 40 mg PO HS 06/12/23 08/06/23 Pregabalin [Lyrica] 75 mg PO BID 06/12/23 08/06/23 Prochlorperazine [Compazine] 10 mg PO Q6H PRN 06/12/23 08/06/23 Tamsulosin [Flomax] 0.4 mg PO HS 06/12/23 08/06/23 Albuterol Sulfate [Ventolin HFA] 1 - 2 puff INHALATION RT-Q4H PRN 07/06/23 08/06/23 guaiFENesin [Mucinex] 1,200 mg PO BID 07/06/23 08/06/23 polyethylene glycoL 3350 [Miralax] 17 gm PO DAILY 07/06/23 08/06/23 Garlic 1,000 mg PO DAILY 07/24/23 08/06/23 dexAMETHasone ORAL [Hexadrol] See Taper PO DIRECTED 07/24/23 08/06/23 Previous Rx's Medication Instructions Recorded levETIRAcetam [Keppra] 500 mg PO Q12HR #60 tab 07/10/23 Ipratropium-Albuterol Nebulize 3 ml INHALATION RT-QID #0 07/26/23 [Duoneb 0.5 mg-3 mg/3 ml Soln] Metoprolol Tartrate [Lopressor] 25 mg PO BID #60 tab 07/26/23 Amiodarone [Cordarone] 200 mg PO BID #60 tab 08/03/23 MORPHINE ORAL LISY CONC 20mg/mL 20 mg PO Q4H PRN #90 ml 08/13/23 [Roxanol Oral Soln Conc 20MG/ML] Allergies Allergy/AdvReac Type Severity Reaction Status Date / Time alprazolam [From Xanax] Allergy Unknown Verified 08/06/23 14:07 scopolamine Allergy Unknown Verified 08/06/23 14:07 metoprolol [From Toprol XL] AdvReac Dizziness Verified 08/06/23 14:07 Review of Systems ROS Statement: Those systems with pertinent positive or pertinent negative responses have been documented in the HPI. ROS Other: All systems not noted in ROS Statement are negative. Past Medical History Past Medical History: Cancer, COPD, CVA/TIA, GERD/Reflux, Hypertension Additional Past Medical History / Comment(s): S4 colon cancer, lung cancer, bladder cancer, brain cancer, new liver lesions on CTA-07/30/2023 History of Any Multi-Drug Resistant Organisms: None Reported Past Surgical History: Bowel Resection, Joint Replacement, Orthopedic Surgery Additional Past Surgical History / Comment(s): repeated right sided thoracentesis-Pleurex 07/31/2023 Past Anesthesia/Blood Transfusion Reactions: No Reported Reaction Past Psychological History: No Psychological Hx Reported Smoking Status: Former smoker Past Alcohol Use History: None Reported Past Drug Use History: Marijuana General Exam Limitations: altered mental status General appearance: anxious, in distress Head exam: Present: atraumatic, normocephalic, normal inspection Eye exam: Present: normal appearance, PERRL, EOMI. Absent: scleral icterus, conjunctival injection, periorbital swelling ENT exam: Present: normal exam, mucous membranes moist Neck exam: Present: normal inspection. Absent: tenderness, meningismus, lymphadenopathy Respiratory exam: Present: normal lung sounds bilaterally. Absent: respiratory distress, wheezes, rales, rhonchi, stridor Cardiovascular Exam: Present: tachycardia, irregular rhythm, normal heart sounds. Absent: systolic murmur, diastolic murmur, rubs, gallop, clicks GI/Abdominal exam: Present: soft, normal bowel sounds. Absent: distended, tenderness, guarding, rebound, rigid Extremities exam: Present: normal inspection, full ROM, normal capillary refill. Absent: tenderness, pedal edema, joint swelling, calf tenderness Back exam: Present: normal inspection Neurological exam: Present: alert, oriented X3, CN II-XII intact Psychiatric exam: Present: normal affect, normal mood Skin exam: Present: warm, dry, intact, normal color. Absent: rash Course Vital Signs 08/06/23 08/06/23 08/06/23 12:06 12:15 12:16 Temperature 98.7 F Pulse Rate 105 H 102 H Pulse Rate [ Firearms Inspector ] Respiratory 24 18 Rate Blood Pressure 87/67 85/70 Blood Pressure [Left Arm] O2 Sat by Pulse 89 L 93 L Oximetry Fraction of 40 Inspired Oxygen (FIO2) 08/06/23 08/06/23 08/06/23 12:30 12:31 12:37 Temperature Pulse Rate 104 H 104 H Pulse Rate [ Firearms Inspector ] Respiratory 26 H Rate Blood Pressure 95/69 Blood Pressure [Left Arm] O2 Sat by Pulse 97 Oximetry Fraction of 40 Inspired Oxygen (FIO2) 08/06/23 08/06/23 08/06/23 12:43 15:00 15:19 Temperature Pulse Rate 96 96 Pulse Rate [ Firearms Inspector ] Respiratory 24 Rate Blood Pressure 107/72 Blood Pressure [Left Arm] O2 Sat by Pulse 97 Oximetry Fraction of 40 Inspired Oxygen (FIO2) 08/06/23 08/06/23 08/06/23 18:08 19:22 20:01 Temperature Pulse Rate 84 92 112 H Pulse Rate [ Firearms Inspector ] Respiratory 24 18 Rate Blood Pressure 113/69 128/79 Blood Pressure [Left Arm] O2 Sat by Pulse 98 96 Oximetry Fraction of 40 Inspired Oxygen (FIO2) 08/06/23 08/06/23 08/06/23 20:12 20:25 22:00 Temperature Pulse Rate 90 95 77 Pulse Rate [ Firearms Inspector ] Respiratory 16 16 Rate Blood Pressure 123/76 122/68 Blood Pressure [Left Arm] O2 Sat by Pulse 96 96 Oximetry Fraction of Inspired Oxygen (FIO2) 08/07/23 08/07/23 08/07/23 00:01 01:00 03:09 Temperature Pulse Rate 81 89 Pulse Rate [ Firearms Inspector ] Respiratory 22 18 Rate Blood Pressure 102/83 106/67 Blood Pressure [Left Arm] O2 Sat by Pulse 96 96 Oximetry Fraction of 40 Inspired Oxygen (FIO2) 08/07/23 08/07/23 08/07/23 04:00 04:17 05:00 Temperature Pulse Rate 89 92 Pulse Rate [ Firearms Inspector ] Respiratory 19 27 H Rate Blood Pressure 120/50 121/70 Blood Pressure [Left Arm] O2 Sat by Pulse 96 97 Oximetry Fraction of 40 Inspired Oxygen (FIO2) 08/07/23 08/07/23 08/07/23 05:38 06:00 07:00 Temperature 98.4 F Pulse Rate 92 95 151 H Pulse Rate [ Firearms Inspector ] Respiratory 16 21 26 H Rate Blood Pressure 110/71 140/78 99/68 Blood Pressure [Left Arm] O2 Sat by Pulse 97 97 Oximetry Fraction of Inspired Oxygen (FIO2) 08/07/23 08/07/23 08/07/23 07:32 07:38 07:44 Temperature Pulse Rate 118 H 122 H Pulse Rate [ Firearms Inspector ] Respiratory Rate Blood Pressure Blood Pressure [Left Arm] O2 Sat by Pulse Oximetry Fraction of 40 Inspired Oxygen (FIO2) 08/07/23 08/07/23 08/07/23 07:46 08:00 08:42 Temperature 98.8 F Pulse Rate 134 H 133 H 146 H Pulse Rate [ Firearms Inspector ] Respiratory 20 23 22 Rate Blood Pressure 91/79 91/79 85/73 Blood Pressure [Left Arm] O2 Sat by Pulse 97 95 Oximetry Fraction of Inspired Oxygen (FIO2) 08/07/23 08/07/23 08/07/23 09:00 09:31 10:00 Temperature Pulse Rate 156 H 149 H Pulse Rate [ 146 H Firearms Inspector ] Respiratory 25 H 22 Rate Blood Pressure 84/59 92/50 Blood Pressure 67/42 [Left Arm] O2 Sat by Pulse 93 L 94 L 95 Oximetry Fraction of Inspired Oxygen (FIO2) 08/07/23 08/07/23 08/07/23 10:16 10:46 11:00 Temperature Pulse Rate 129 H Pulse Rate [ 135 H 138 H Firearms Inspector ] Respiratory 20 20 24 Rate Blood Pressure 97/86 Blood Pressure 78/50 97/86 [Left Arm] O2 Sat by Pulse 96 96 Oximetry Fraction of Inspired Oxygen (FIO2) 08/07/23 08/07/23 08/07/23 11:02 11:04 11:14 Temperature Pulse Rate 120 H 116 H Pulse Rate [ Firearms Inspector ] Respiratory Rate Blood Pressure Blood Pressure [Left Arm] O2 Sat by Pulse 95 Oximetry Fraction of Inspired Oxygen (FIO2) 08/07/23 08/07/23 08/07/23 11:32 12:00 12:48 Temperature Pulse Rate 98 Pulse Rate [ 140 H Firearms Inspector ] Respiratory 20 18 Rate Blood Pressure 67/53 103/60 Blood Pressure 73/57 [Left Arm] O2 Sat by Pulse 87 L 88 L Oximetry Fraction of Inspired Oxygen (FIO2) 08/07/23 08/07/23 08/07/23 13:04 13:34 14:58 Temperature Pulse Rate 96 95 87 Pulse Rate [ Firearms Inspector ] Respiratory 22 24 21 Rate Blood Pressure 85/53 105/57 104/68 Blood Pressure [Left Arm] O2 Sat by Pulse 89 L 86 L Oximetry Fraction of Inspired Oxygen (FIO2) 08/07/23 08/07/23 08/07/23 15:29 15:44 15:45 Temperature Pulse Rate 98 Pulse Rate [ Firearms Inspector ] Respiratory Rate Blood Pressure Blood Pressure [Left Arm] O2 Sat by Pulse 85 L 85 L Oximetry Fraction of Inspired Oxygen (FIO2) 08/07/23 08/07/23 08/07/23 15:55 16:00 16:04 Temperature Pulse Rate 98 129 H Pulse Rate [ Firearms Inspector ] Respiratory 24 Rate Blood Pressure 100/60 Blood Pressure [Left Arm] O2 Sat by Pulse 95 Oximetry Fraction of 40 Inspired Oxygen (FIO2) 08/07/23 16:09 Temperature Pulse Rate 122 H Pulse Rate [ Firearms Inspector ] Respiratory 18 Rate Blood Pressure 100/60 Blood Pressure [Left Arm] O2 Sat by Pulse 97 Oximetry Fraction of 40 Inspired Oxygen (FIO2) - Reevaluation(s) Reevaluation #1: 08/06/23 20:46 Medical records reviewed Reevaluation #2: 08/06/23 20:46 Patient symptoms are mildly improved here on BiPAP in the emergency department Heart rate remains labile Reevaluation #3: 08/06/23 20:46 Patient informed of results and questions have been answered Reevaluation #4: 08/06/23 20:46 Was pt. sent in by a medical professional or institution (NICOLE Balbuena, WIRELINE OPERATOR, urgent care, hospital, or shelter...) When possible be specific @ -no Did you speak to anyone other than the patient for history (EMS, parent, family, police, friend...)? What history was obtained from this source @ -no Did you review nursing and triage notes (agree or disagree)? Why? @ -agree Are old charts reviewed (outside hosp., previous admission, EMS record, old EKG, old radiological studies, urgent care reports/EKG's, shelter records)? Report findings @ -yes Differential Diagnosis (chest pain, altered mental status, abdominal pain women, abdominal pain men, vaginal bleeding, weakness, fever, dyspnea, syncope, headache, dizziness, GI bleed, back pain, seizure, CVA, palpatations, mental health, musculoskeletal)? @ -prior EKG interpreted by me (3pts min.). @ -yes X-rays interpreted by me (1pt min.). @ -yes significant pleural effusions CT interpreted by me (1pt min.). @ -no U/S interpreted by me (1pt. min.). @ -no What testing was considered but not performed or refused? (CT, X-rays, U/S, labs)? Why? @ -none What meds were considered but not given or refused? Why? @ -none Did you discuss the management of the patient with other professionals (professionals i.e. NICOLE Balbuena, WIRELINE OPERATOR, lab, RT, psych nurse, social media marketer, entry level java developer, teacher, commissary officer, family independence case manager)? Give summary @ -no Was smoking cessation discussed for >3mins.? @ -no Was critical care preformed (if so, how long)? @ -yes31 Were there social determinants of health that impacted care today? How? (Homelessness, low income, unemployed, alcoholism, drug addiction, transportation, low edu. Level, literacy, decrease access to med. care, mcc, rehab)? @ -none Was there de-escalation of care discussed even if they declined (Discuss DNR or withdrawal of care, Hospice)? DNR status @ -no What co-morbidities impacted this encounter? (DM, HTN, Smoking, COPD, CAD, Cancer, CVA, ARF, Chemo, Hep., AIDS, mental health diagnosis, sleep apnea, morbid obesity)? @ -none Was patient admitted / discharged? Hospital course, mention meds given and route, prescriptions, significant lab abnormalities, going to OR and other pertinent info. @ - 72 male to the emergency department for evaluation with multifactorial respiratory failure heart disease lung cancer pleural effusions and COPD. Patient will be admitted for supportive care Admitted respiratory failure, COPD pleural effusions cancer and hypoxia Undiagnosed new problem with uncertain prognosis? @ -no Drug Therapy requiring intensive monitoring for toxicity (Heparin, Nitro, Insulin, Cardizem)? @ -no Were any procedures done? @ -no Diagnosis/symptom? @ - Acute, or Chronic, or Acute on Chronic? @ -Acute Uncomplicated (without systemic symptoms) or Complicated (systemic symptoms)? @ -Complicated Side effects of treatment? @ -no Exacerbation, Progression, or Severe Exacerbation? @ -exacerbation Poses a threat to life or bodily function? How? (Chest pain, [place], [place], pneumonia, PE, COPD, DKA, ARF, appy, cholecystitis, CVA, Diverticulitis, Homicidal, Suicidal, threat to staff... and all critical care pts) @ -yes significant rust for distress Reevaluation #5: 08/06/23 20:46 Differential Dyspnea: Coronary syndrome, arrhythmia, tamponade, asthma, COPD, pulmonary embolism, pneumonia, pneumothorax, pulmonary effusion, anaphylaxis, diabetic ketoacidosis, flailed chest, pulmonary contusion, diaphragmatic rupture, anemia, neuromuscular, this is not meant to be an all-inclusive list. - Consultations Consultation #1: Katerin bacon who agrees to admit this patient Medical Decision Making - Medical Decision Making 72 male to the emergency department for evaluation with multifactorial respiratory failure heart disease lung cancer pleural effusions and COPD. Patient will be admitted for supportive care - Lab Data Result diagrams: 08/13/23 06:49 08/13/23 06:49 Lab Results 08/06/23 08/06/23 08/06/23 Range/Units 12:32 12:32 12:32 WBC 11.9 H (3.8-10.6) k/uL RBC 4.37 (4.30-5.90) m/uL Hgb 11.6 L (13.0-17.5) gm/dL Hct 36.2 L (39.0-53.0) % MCV 82.7 (80.0-100.0) fL MCH 26.6 (25.0-35.0) pg MCHC 32.2 (31.0-37.0) g/dL RDW 16.5 H (11.5-15.5) % Plt Count 318 (150-450) k/uL MPV 7.8 Neutrophils % 90 % Lymphocytes % 8 % Monocytes % 1 % Eosinophils % 0 % Basophils % 0 % Neutrophils # 10.7 H (1.3-7.7) k/uL Lymphocytes # 0.9 L (1.0-4.8) k/uL Monocytes # 0.1 (0-1.0) k/uL Eosinophils # 0.1 (0-0.7) k/uL Basophils # 0.0 (0-0.2) k/uL Anisocytosis Slight PT 10.7 (10.0-12.5) sec INR 1.0 (<1.2) APTT 23.5 (22.0-30.0) sec Sodium 135 L (137-145) mmol/L Potassium 4.5 (3.5-5.1) mmol/L Chloride 95 L (98-107) mmol/L Carbon Dioxide 33 H (22-30) mmol/L Anion Gap 7 mmol/L BUN 31 H (9-20) mg/dL Creatinine 0.75 (0.66-1.25) mg/dL Est GFR (CKD-EPI)AfAm >90 (>60 ml/min/1.73 sqM) Est GFR (CKD-EPI)NonAf >90 (>60 ml/min/1.73 sqM) Glucose 145 H (74-99) mg/dL Calcium 8.5 (8.4-10.2) mg/dL Magnesium 1.8 (1.6-2.3) mg/dL Total Bilirubin 0.6 (0.2-1.3) mg/dL AST 39 (17-59) U/L ALT 71 H (4-49) U/L Alkaline Phosphatase 150 H (38-126) U/L Troponin I (0.000-0.034) ng/mL NT-Pro-B Natriuret Pep 3430 pg/mL Total Protein 5.6 L (6.3-8.2) g/dL Albumin 2.6 L (3.5-5.0) g/dL 08/06/23 Range/Units 12:32 WBC (3.8-10.6) k/uL RBC (4.30-5.90) m/uL Hgb (13.0-17.5) gm/dL Hct (39.0-53.0) % MCV (80.0-100.0) fL MCH (25.0-35.0) pg MCHC (31.0-37.0) g/dL RDW (11.5-15.5) % Plt Count (150-450) k/uL MPV Neutrophils % % Lymphocytes % % Monocytes % % Eosinophils % % Basophils % % Neutrophils # (1.3-7.7) k/uL Lymphocytes # (1.0-4.8) k/uL Monocytes # (0-1.0) k/uL Eosinophils # (0-0.7) k/uL Basophils # (0-0.2) k/uL Anisocytosis PT (10.0-12.5) sec INR (<1.2) APTT (22.0-30.0) sec Sodium (137-145) mmol/L Potassium (3.5-5.1) mmol/L Chloride (98-107) mmol/L Carbon Dioxide (22-30) mmol/L Anion Gap mmol/L BUN (9-20) mg/dL Creatinine (0.66-1.25) mg/dL Est GFR (CKD-EPI)AfAm (>60 ml/min/1.73 sqM) Est GFR (CKD-EPI)NonAf (>60 ml/min/1.73 sqM) Glucose (74-99) mg/dL Calcium (8.4-10.2) mg/dL Magnesium (1.6-2.3) mg/dL Total Bilirubin (0.2-1.3) mg/dL AST (17-59) U/L ALT (4-49) U/L Alkaline Phosphatase (38-126) U/L Troponin I 0.200 H* (0.000-0.034) ng/mL NT-Pro-B Natriuret Pep pg/mL Total Protein (6.3-8.2) g/dL Albumin (3.5-5.0) g/dL - EKG Data -: EKG Interpreted by Me (EKG is atrial fib with RVR 103 QRS 91 QTc 396) - Radiology Data Radiology results: report reviewed (Chest x-rays positive for increasing pleural effusion), image reviewed Critical Care Time Critical Care Time: Yes Total Critical Care Time: 31 Disposition Clinical Impression: Hypoxia, Atrial fibrillation with RVR, Tachycardia, Hypoxic respiratory failure, Lung cancer, Pleural effusion, Shortness of breath, Acute respiratory insufficiency Disposition: ADMITTED IP TO THIS HOSP Condition: Good Is patient prescribed a controlled substance at d/c from ED?: No Time of Disposition: 15:00
[2023-08-06] MEDS: SODIUM CHLORIDE 0.9% 1,000 ML IV STA (13:38)
--- NOTE | 2023-08-06 14:43 | XR ---
EXAMINATION TYPE: XR chest 1V portable DATE OF EXAM: 08/06/2023 Comparison: 08/02/2023 Clinical History: 72-year-old male sob Findings: Right chest wall and port. Catheter tip at the lower SVC. Advanced degenerative change at the shoulde rs. Multiple pulmonary nodules and masses are redemonstrated, right greater than left. Heart borderline i n size. Mild hyperinflation. Patchy opacity has increased throughout the right mid and lower lung, patel spected small right effusion as well. Impression: Known multiple pulmonary nodules and masses. Background COPD. Increasing patchy opacity right mid and lower lung and possible small effusion.
[2023-08-06] MEDS ORDERED: ONDANSETRON 4 MG/2 ML VIAL IVP PRN (15:44)
[2023-08-06] MEDS ORDERED: NALOXONE 0.4 MG/ML 1 ML VIAL IV PRN (15:44)
[2023-08-06] MEDS: SODIUM CHLORIDE 0.9% 1,000 ML IV SCH (15:49)
[2023-08-06] MEDS: DILTIAZEM 5 MG/ML 5 ML VIAL IVP STA (16:24)
[2023-08-06] MEDS ORDERED: PROCHLORPERAZINE 10 MG TAB PO PRN (18:52)
--- NOTE | 2023-08-06 19:03 | P.HPIM ---
History of Present Illness H&P Date: 08/06/23 Patient is a 72-year-old male with stage IV metastatic colon cancer with known metastases to liver, lung, and brain with recurrent right-sided pleural effusions and recent pleurX cath placement and A fib. Patient is well known to our group with 5 hospitalizations in the last 2 months. He was recently dischared on 08/03/23 after pleurx cath was placed, during that same hospital stay he struggled with A-fib with RVR and was discharged home on amiodarone. Due to a low [id number] score and known brain mass with surrounding vasogenic edema he is not on anticoagulation. On arrival to the ER he underwent extensive evaluation. His initial heart rate was 105, blood pressure 87/63, and O2 sat 89% on 6 L nasal cannula. Initial laboratory analysis included CBC, coags, CMP, magnesium, troponin, and BNP which were remarkable for white blood cell count of 11.9, hemoglobin 11.6, BUN 31, ALT 71, alkaline phosphatase 150, troponin 0.2, BNP 3430. He was also noted to be in and out of A-fib with rapid ventricular response. In the ER he was given a DuoNeb and given 15 mg of IV Cardizem without significant change in his heart rate. He was placed on BiPAP which seemed to help with his heart rate. Patient seen and examined at bedside. He is resting on BiPAP. Significant other is at bedside. He does not wake up to verbal or physical stimulation. All information is gathered from significant other. Apparently the patient was discharged and was initially doing okay 08/04 and 08/05. However overnight he walked himself to the bathroom and then was significantly winded. He has to lay down in his bed and his breathing got worse. He typically sleeps in a chair. His significant other attempted to help get him to his chair and had to call 911 to help. He was then in his chair and continued to be significantly short of breath and therefore they came to the ER. She reports that today he has had some increased confusion as well as increased lethargy. She also reports increased tremors bilaterally. She states the home care nurse came out yesterday but did not drain the Pleurx catheter is supposed to be done on Thursday and Thursday. His significant other is worried about a possible urinary tract infection as he urinated twice today Vital signs reviewed General: Ill-appearing, moderate distress Derm: warm, dry Cardiovascular: S1S2 regular without murmur, 2+ edema bilateral lower e xtremities Lungs: Coarse breath sounds bilateral with expiratory wheezing no accessory muscle use Abdominal: soft, nontender to palpation, no guarding Ext: no gross muscle atrophy, no contractures Neuro: CN II-XII grossly intact, tremors Psych: Somnolent Assessment/Plan: Acute hypoxic respiratory failure A-fib with RVR Metastatic colon cancer with mets to liver, lung, and brain 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 Acute metabolic encephalopathy with tremor Leukocytosis Elevated troponin, suspect due to hhypoxia and Afib -Drain Pleurx catheter -Continue with BiPAP support -Check ammonia, repeat troponin, check ABG - check UA - Repeat CBC and CMP in AM -Resume amiodarone 200 mg twice daily, Lopressor 25 mg twice daily -Lipitor 40 mg at night -Guaifenesin 1200 mg twice daily, DuoNebs 4 times daily scheduled, albuterol every 2 hours as needed -Keppra 500 mg twice daily -Decadron 4 mg daily -Continue BiPAP until more awake -Consult pulmonary and cardiology to see if they feel any other treatments can be offered Intractable pain related to malignancy -Resume home morphine sulfate 30 mg twice daily, and [place] 10/325 every 6 hours, Lyrica 75 mg twice daily -Morphine 4 mg IV every 4 hours as needed for severe pain I again had a noe discussion with his significant other that his malignancy is overtaking his body and that he is not responding to typical treatments. I again suggested that they consider hospice care. She is more apt to considering this that she can no longer get him out of the house because he is too weak. I did discuss with her that I would not recommend CPR or intubation at this point as he had has had a slow downhill decline and is no longer a candidate for chemotherapy, they would only prolong the inevitable Poor prognosis, recommend hospice Imaging: As per HPI Data Review: as per HPI The patient is admitted with an anticipated greater than 2 midnight stay for evaluation of respiratory failure. Surrogate decision-maker: Significant other-Lauren CODE STATUS: Too lethargic to have prolonged discussion now, has been full code during previous admissions DVT prophylaxis: Lovenox Anticipated discharge date: Pending clinical course Anticipated discharge place: Pending clinical course This dictation was prepared using [employer] voice recognition software. Though every attempt is made to correct errors during dictation some may still exist. Past Medical History Past Medical History: Atrial Fibrillation, Cancer, COPD, CVA/TIA, GERD/Reflux, Hypertension Additional Past Medical History / Comment(s): S4 colon cancer, lung cancer, bladder cancer, brain cancer, new liver lesions on CTA-07/30/2023 History of Any Multi-Drug Resistant Organisms: None Reported Past Surgical History: Bowel Resection, Joint Replacement, Orthopedic Surgery Additional Past Surgical History / Comment(s): repeated right sided thoracentesis-Pleurex 07/31/2023 Past Anesthesia/Blood Transfusion Reactions: No Reported Reaction Past Psychological History: No Psychological Hx Reported Smoking Status: Former smoker Past Alcohol Use History: None Reported Past Drug Use History: Marijuana Medications and Allergies Home Medications Medication Instructions Recorded Confirmed Type Atorvastatin [Lipitor] 40 mg PO HS 06/12/23 08/06/23 History Cholecalciferol [Vitamin D3 (25 25 mcg PO DAILY 06/12/23 08/06/23 History Mcg = 1000 Iu)] Cyanocobalamin (Vitamin B-12) 1,000 mcg PO DAILY 06/12/23 08/06/23 History [Vitamin B-12] DULoxetine HCL [Cymbalta] 60 mg PO HS 06/12/23 08/06/23 History HYDROcodone/APAP 10-325MG [[place] 1 tab PO Q6H PRN 06/12/23 08/06/23 History 10-325] Montelukast [Singulair] 10 mg PO HS 06/12/23 08/06/23 History Morphine Sulfate ER [Ms Contin] 30 mg PO BID 06/12/23 08/06/23 History [place]-3 Fatty Acids [[place]-3] 4,000 mg PO DAILY 06/12/23 08/06/23 History Pantoprazole [Protonix] 40 mg PO HS 06/12/23 08/06/23 History Pregabalin [Lyrica] 75 mg PO BID 06/12/23 08/06/23 History Prochlorperazine [Compazine] 10 mg PO Q6H PRN 06/12/23 08/06/23 History Tamsulosin [Flomax] 0.4 mg PO HS 06/12/23 08/06/23 History Albuterol Sulfate [Ventolin HFA] 1 - 2 puff INHALATION RT-Q4H PRN 07/06/2307/27 History guaiFENesin [Mucinex] 1,200 mg PO BID 07/06/23 08/06/23 History polyethylene glycoL 3350 [Miralax] 17 gm PO DAILY 07/06/23 08/06/23 History levETIRAcetam [Keppra] 500 mg PO Q12HR #60 tab 07/10/23 08/06/23 Rx Garlic 1,000 mg PO DAILY 07/24/23 08/06/23 History dexAMETHasone ORAL [Hexadrol] See Taper PO DIRECTED 07/24/23 08/06/23 History Ipratropium-Albuterol Nebulize 3 ml INHALATION RT-QID #0 07/26/23 08/06/23 Rx [Duoneb 0.5 mg-3 mg/3 ml Soln] Metoprolol Tartrate [Lopressor] 25 mg PO BID #60 tab 07/26/23 08/06/23 Rx Amiodarone [Cordarone] 200 mg PO BID #60 tab 08/03/23 08/06/23 Rx Allergies Allergy/AdvReac Type Severity Reaction Status Date / Time alprazolam [From Xanax] Allergy Unknown Verified 08/06/23 14:07 scopolamine Allergy Unknown Verified 08/06/23 14:07 metoprolol [From Toprol XL] AdvReac Dizziness Verified 08/06/23 14:07 Physical Exam Osteopathic Statement: *. No significant issues noted on an osteopathic structural exam other than those noted in the History and Physical/Consult. Vitals: Vital Signs Temp Pulse Resp BP Pulse Ox FiO2 08/06/23 18:08 84 24 113/69 98 08/06/23 15:19 40 08/06/23 15:00 96 24 107/72 97 08/06/23 12:43 96 08/06/23 12:37 104 H 26 H 95/69 97 08/06/23 12:31 104 H 08/06/23 12:30 40 08/06/23 12:16 102 H 18 85/70 93 L 08/06/23 12:15 40 08/06/23 12:06 98.7 F 105 H 24 87/67 89 L Intake and Output 08/06/23 08/06/23 08/06/23 06:59 14:59 22:59 Other: Weight 108.862 kg Results CBC & Chem 7: 08/06/23 12:32 08/06/23 12:32 Labs: Abnormal Lab Results - Last 24 Hours (Table) 08/06/23 08/06/23 08/06/23 Range/Units 12:32 12:32 12:32 WBC 11.9 H (3.8-10.6) k/uL Hgb 11.6 L (13.0-17.5) gm/dL Hct 36.2 L (39.0-53.0) % RDW 16.5 H (11.5-15.5) % Neutrophils # 10.7 H (1.3-7.7) k/uL Lymphocytes # 0.9 L (1.0-4.8) k/uL Sodium 135 L (137-145) mmol/L Chloride 95 L (98-107) mmol/L Carbon Dioxide 33 H (22-30) mmol/L BUN 31 H (9-20) mg/dL Glucose 145 H (74-99) mg/dL ALT 71 H (4-49) U/L Alkaline Phosphatase 150 H (38-126) U/L Troponin I 0.200 H* (0.000-0.034) ng/mL Total Protein 5.6 L (6.3-8.2) g/dL Albumin 2.6 L (3.5-5.0) g/dL
[2023-08-06 19:58] LABS: ABG Base Excess 11.7 mmol/L; ABG HCO3 35 mmol/L (21-25); ABG PCO2 44 mmHg (35-45); ABG PH 7.51 (7.35-7.45); ABG PO2 95 mmHg (83-108); ABG TCO2 36 mmol/L (19-24); Allen Test Performed? Yes
[2023-08-06] MEDS: IPRATROPIUM-ALBUTEROL 3 ML NEB INHALATION SCH (20:01)
[2023-08-06] MEDS: guaiFENesin 600 MG TABLET.ER PO SCH (20:16)
[2023-08-06] MEDS: PREGABALIN 75 MG CAP PO SCH (20:16)
[2023-08-06] MEDS: MORPHINE SULFATE ER 30 MG TABLET PO SCH (20:16)
[2023-08-06] MEDS: MONTELUKAST 10 MG TAB PO SCH (20:17)
[2023-08-06] MEDS: PANTOPRAZOLE 40 MG TABLET PO SCH (20:17)
[2023-08-06] MEDS: METOPROLOL TARTRATE 25 MG TAB PO SCH (20:17)
[2023-08-06] MEDS: ATORVASTATIN 40 MG TAB PO SCH (20:17)
[2023-08-06] MEDS: DULoxetine HCL 60 MG CAPSULE.DR PO SCH (20:17)
[2023-08-06] MEDS: TAMSULOSIN 0.4 MG CAP.ER.24H PO SCH (20:17)
[2023-08-06] MEDS: levETIRAcetam 500 MG TAB PO SCH (20:17)
[2023-08-06] MEDS: AMIODARONE 200 MG TAB PO SCH (20:17)
[2023-08-07 04:25] LABS: Appearance,Urine Clear (Clear); Bilirubin,Urine Negative (Negative); Blood,Urine Large (Negative); Color,Urine Yellow; Glucose,Urine (UA) Negative (Negative); Ketones,Urine Negative (Negative); Leukocyte Esterase,Urine Negative (Negative); Mucus,Urine Rare /hpf; Nitrite,Urine Negative (Negative); PH, Urine 7.5 (5.0-8.0); Protein,Urine Trace (Negative); RBC,Urine >182 /hpf (0-5); WBC,Urine 4 /hpf (0-5)
[2023-08-07 07:37] LABS: Anisocytosis Slight; HCT 35.3 % (39.0-53.0); HGB 10.9 gm/dL (13.0-17.5); Hypochromasia Slight; MCH 26.4 pg (25.0-35.0); MCHC 30.8 g/dL (31.0-37.0); MCV 85.6 fL (80.0-100.0); Mean Platelet Volume 7.6; Platelet Count 278 k/uL (150-450); RBC 4.12 m/uL (4.30-5.90); RDW 16.8 % (11.5-15.5); WBC 8.9 k/uL (3.8-10.6)
[2023-08-07 07:53] LABS: Glucose,Whole Blood 102 mg/dL (70-110)
[2023-08-07 07:57] LABS: African American GFR (CKD) >90 (>60 ml/min/1.73 sqM); Anion Gap 7 mmol/L; Blood Urea Nitrogen 24 mg/dL (9-20); Calcium 8.2 mg/dL (8.4-10.2); Carbon Dioxide 34 mmol/L (22-30); Chloride 96 mmol/L (98-107); Glucose 93 mg/dL (74-99); Non-African American GFR(CKD) >90 (>60 ml/min/1.73 sqM); Potassium 4.4 mmol/L (3.5-5.1); Sodium 137 mmol/L (137-145)
[2023-08-07] MEDS: HYDROcodone/APAP 10-325MG 1 EACH TAB PO PRN (08:12)
[2023-08-07] MEDS: polyethylene glycoL 3350 17 GM POWD.PACK PO SCH (09:03)
[2023-08-07] MEDS: ENOXAPARIN 40 MG/0.4 ML SYRINGE SQ SCH (09:09)
[2023-08-07] MEDS: SODIUM CHLORIDE 0.9% 500 ML 500 ML IV ONE (09:15)
[2023-08-07] MEDS: DEXTROSE 5% IN WATER 100 ML with AMIODARONE 150 MG IV ONE (10:05)
[2023-08-07] MEDS: AMIODARONE 360 MG in DEXTROSE 5% IN WATER 200 ML IV ONE (10:24)
--- NOTE | 2023-08-07 10:24 | P.CRDCN ---
History of Present Illness History of present illness: HISTORY OF PRESENT ILLNESS: This is a 72-year-old male with a past medical history significant for colon cancer with known metastasis to liver, lung, and brain, recurrent right-sided pleural effusions with Pleurx catheter placement, and paroxysmal atrial fibrillation. 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 We have been asked to see the patient in consultation for A. fib with RVR. Patient examined at the bedside in the emergency room. Patient is sitting up in the chair. His family is present. Patient's family member states he has been feeling short of breath for the past month but has been getting progressively worse. He reports having some intermittent chest discomfort but denies chest pain at time of examination. Bedside telemetry reveals atrial fibrillation with a heart rate in the 140s. Patient was also hypotensive with a systolic blood pressure ranging between 7090. He received a 500 mL bolus this morning. * EKG reveals A. fib with RVR * Chest xray known multiple pulmonary nodules and masses. Background COPD. Increasing patchy opacity right mid and lower lung and possible small effusion * Laboratory data: Troponin 0.200. 0.100. * Most recent echocardiogram obtained in June 2023 revealed ejection fraction 50-55%, mild LVH, no significant valvular abnormalities noted REVIEW OF SYSTEMS: At the time of my exam: CONSTITUTIONAL: Denies fever or chills. HEENT: Denies blurred vision, vision changes, or eye pain. Denies hemoptysis CARDIOVASCULAR: Denies chest pain. + orthopnea. + PND. + palpitations RESPIRATORY: + shortness of breath. GASTROINTESTINAL: Denies abdominal pain. Denies nausea or vomiting. HEMATOLOGIC: Denies bleeding disorders. GENITOURINARY: Denies any blood in urine. SKIN: Denies pruitis. Denies rash. PHYSICAL EXAM: VITAL SIGNS: Reviewed. GENERAL: Well-developed. Diaphoretic at the time of examination and appears mildly uncomfortable. HEENT: Head is normocephalic. Pupils are equal, round. Sclerae anicteric. Mucous membranes of the mouth are moist. Neck supple. No JVD or thyromegaly LUNGS: Respirations even and unlabored. Lungs diminished bilaterally with expiratory wheezing noted HEART: Tachycardic. Irregular rate and rhythm. S1 and S2 heard. ABDOMEN: Soft. Nondistended. Nontender. EXTREMITIES: Normal range of motion. No clubbing or cyanosis. Peripheral pulses intact. 1-2+ bilateral lower extremity edema NEUROLOGIC: Awake and alert. Oriented x 3. ASSESSMENT: Progressive shortness of breath Persistent atrial fibrillation with RVR Acute hypoxic respiratory failure Metastatic colon cancer with metastases to liver, lung, brain Recurrent right-sided pleural effusion with Pleurx catheter in place Abnormal troponins, suspect secondary to type II SC secondary to oxygen supply demand mismatch Hypotension PLAN: Obtain 2-D echo to assess cardiac structure and function Begin IV amiodarone bolus and drip per protocol Continue telemetry monitoring If patient remains hypotensive, will require Levophed infusion and transfer to the intensive care unit Not on anticoagulation secondary to known brain mass with surrounding vasogenic edema Patient's prognosis remains poor Further recommendations pending patient's course Nurse practitioner note has been reviewed by physician. Signing provider agrees with the documented findings, assessment, and plan of care. Past Medical History Past Medical History: Cancer, COPD, CVA/TIA, GERD/Reflux, Hypertension Additional Past Medical History / Comment(s): S4 colon cancer, lung cancer, bladder cancer, brain cancer, new liver lesions on CTA-07/30/2023 History of Any Multi-Drug Resistant Organisms: None Reported Past Surgical History: Bowel Resection, Joint Replacement, Orthopedic Surgery Additional Past Surgical History / Comment(s): repeated right sided thoracentesis-Pleurex 07/31/2023 Past Anesthesia/Blood Transfusion Reactions: No Reported Reaction Past Psychological History: No Psychological Hx Reported Smoking Status: Former smoker Past Alcohol Use History: None Reported Past Drug Use History: Marijuana Medications and Allergies Home Medications Medication Instructions Recorded Confirmed Type Atorvastatin [Lipitor] 40 mg PO HS 06/12/23 08/06/23 History Cholecalciferol [Vitamin D3 (25 25 mcg PO DAILY 06/12/23 08/06/23 History Mcg = 1000 Iu)] Cyanocobalamin (Vitamin B-12) 1,000 mcg PO DAILY 06/12/23 08/06/23 History [Vitamin B-12] DULoxetine HCL [Cymbalta] 60 mg PO HS 06/12/23 08/06/23 History HYDROcodone/APAP 10-325MG [[place] 1 tab PO Q6H PRN 06/12/23 08/06/23 History 10-325] Montelukast [Singulair] 10 mg PO HS 06/12/23 08/06/23 History Morphine Sulfate ER [Ms Contin] 30 mg PO BID 06/12/23 08/06/23 History [place]-3 Fatty Acids [[place]-3] 4,000 mg PO DAILY 06/12/23 08/06/23 History Pantoprazole [Protonix] 40 mg PO HS 06/12/23 08/06/23 History Pregabalin [Lyrica] 75 mg PO BID 06/12/23 08/06/23 History Prochlorperazine [Compazine] 10 mg PO Q6H PRN 06/12/23 08/06/23 History Tamsulosin [Flomax] 0.4 mg PO HS 06/12/23 08/06/23 History Albuterol Sulfate [Ventolin HFA] 1 - 2 puff INHALATION RT-Q4H PRN 07/06/23 08/06/23 History guaiFENesin [Mucinex] 1,200 mg PO BID 07/06/23 08/06/23 History polyethylene glycoL 3350 [Miralax] 17 gm PO DAILY 07/06/23 08/06/23 History levETIRAcetam [Keppra] 500 mg PO Q12HR #60 tab 07/10/23 08/06/23 Rx Garlic 1,000 mg PO DAILY 07/24/23 08/06/23 History dexAMETHasone ORAL [Hexadrol] See Taper PO DIRECTED 07/24/23 08/06/23 History Ipratropium-Albuterol Nebulize 3 ml INHALATION RT-QID #0 07/26/23 08/06/23 Rx [Duoneb 0.5 mg-3 mg/3 ml Soln] Metoprolol Tartrate [Lopressor] 25 mg PO BID #60 tab 07/26/23 08/06/23 Rx Amiodarone [Cordarone] 200 mg PO BID #60 tab 08/03/23 08/06/23 Rx Allergies Allergy/AdvReac Type Severity Reaction Status Date / Time alprazolam [From Xanax] Allergy Unknown Verified 08/06/23 14:07 scopolamine Allergy Unknown Verified 08/06/23 14:07 metoprolol [From Toprol XL] AdvReac Dizziness Verified 08/06/23 14:07 Physical Exam Vitals: Vital Signs Temp Pulse Resp BP Pulse Ox FiO2 08/07/23 08:42 146 H 22 85/73 95 08/07/23 07:46 98.8 F 134 H 20 91/79 97 08/07/23 07:44 122 H 08/07/23 07:38 40 08/07/23 07:32 118 H 08/07/23 05:38 98.4 F 92 16 110/71 97 08/07/23 04:17 40 08/07/23 04:00 89 19 120/50 96 08/07/23 03:09 89 18 106/67 96 08/07/23 01:00 81 22 102/83 96 08/07/23 00:01 40 08/06/23 22:00 77 16 122/68 96 08/06/23 20:25 95 16 123/76 96 08/06/23 20:12 90 08/06/23 20:01 112 H 40 08/06/23 19:22 92 18 128/79 96 08/06/23 18:08 84 24 113/69 98 08/06/23 15:19 40 08/06/23 15:00 96 24 107/72 97 08/06/23 12:43 96 08/06/23 12:37 104 H 26 H 95/69 97 08/06/23 12:31 104 H 08/06/23 12:30 40 08/06/23 12:16 102 H 18 85/70 93 L 08/06/23 12:15 40 08/06/23 12:06 98.7 F 105 H 24 87/67 89 L Results 08/07/23 06:33 08/07/23 06:33 Cardiac Enzymes 08/06/23 08/06/23 08/06/23 Range/Units 12:32 12:32 19:18 AST 39 (17-59) U/L Troponin I 0.200 H* 0.100 H* (0.000-0.034) ng/mL Coagulation 08/06/23 Range/Units 12:32 PT 10.7 (10.0-12.5) sec APTT 23.5 (22.0-30.0) sec CBC 08/06/23 08/07/23 Range/Units 12:32 06:33 WBC 11.9 H 8.9 (3.8-10.6) k/uL RBC 4.37 4.12 L (4.30-5.90) m/uL Hgb 11.6 L 10.9 L (13.0-17.5) gm/dL Hct 36.2 L 35.3 L (39.0-53.0) % Plt Count 318 278 (150-450) k/uL Comprehensive Metabolic Panel 08/06/23 08/07/23 Range/Units 12:32 06:33 Sodium 135 L 137 (137-145) mmol/L Potassium 4.5 4.4 (3.5-5.1) mmol/L Chloride 95 L 96 L (98-107) mmol/L Carbon Dioxide 33 H 34 H (22-30) mmol/L BUN 31 H 24 H (9-20) mg/dL Creatinine 0.75 0.64 L (0.66-1.25) mg/dL Glucose 145 H 93 (74-99) mg/dL Calcium 8.5 8.2 L (8.4-10.2) mg/dL AST 39 (17-59) U/L ALT 71 H (4-49) U/L Alkaline Phosphatase 150 H (38-126) U/L Total Protein 5.6 L (6.3-8.2) g/dL Albumin 2.6 L (3.5-5.0) g/dL Current Medications Generic Name Dose Route Start Last Admin Trade Name Freq PRN Reason Stop Dose Admin Acetaminophen 650 mg 08/06/23 18:47 Acetaminophen Tab 325 Mg Tab PO Q6HR PRN Mild Pain or Fever > 100.5 Hydrocodone Bitart/Acetaminophen 1 each 08/06/23 18:52 08/07/23 08:12 Hydrocodone/Apap 10-325mg 1 Each Tab PO 1 each Q6H PRN Administration Pain Albuterol/Ipratropium 3 ml 08/06/23 20:00 08/07/23 07:32 Ipratropium-Albuterol 3 Ml Neb INHALATION 3 ml RT-QID YASIR Administration Amiodarone HCl 200 mg 08/06/23 21:00 08/07/23 09:09 Amiodarone 200 Mg Tab PO 200 mg BID YASIR Administration Atorvastatin Calcium 40 mg 08/06/23 21:00 08/06/23 20:17 Atorvastatin 40 Mg Tab PO 40 mg HS YASIR Administration Duloxetine HCl 60 mg 08/06/23 21:00 08/06/23 20:17 Duloxetine Hcl 60 Mg Capsule.Dr PO 60 mg HS YASIR Administration Enoxaparin Sodium 40 mg 08/07/23 09:00 08/07/23 09:09 Enoxaparin 40 Mg/0.4 Ml Syringe SQ 40 mg DAILY YASIR Administration Guaifenesin 1,200 mg 08/06/23 21:00 08/07/23 09:09 Guaifenesin 600 Mg Tablet.Er PO 1,200 mg BID YASIR Administration Sodium Chloride 1,000 mls @ 20 mls/hr 08/06/23 15:45 08/06/23 15:49 Saline 0.9% IV Not Given .Q24H YASIR Sodium Chloride 500 mls @ 999 mls/hr 08/07/23 09:14 08/07/23 09:15 Saline 0.9% IV 08/07/23 09:44 999 mls/hr .Q31M ONE Administration Levetiracetam 500 mg 08/06/23 21:00 08/07/23 09:09 Levetiracetam 500 Mg Tab PO 500 mg Q12HR YASIR Administration Lorazepam 0.5 mg 08/06/23 18:47 Lorazepam 2 Mg/Ml Inj IV Q6HR PRN Anxiety Melatonin 3 mg 08/06/23 18:47 Melatonin 3 Mg Tablet PO HS PRN Insomnia Metoprolol Tartrate 25 mg 08/06/23 21:00 08/07/23 09:09 Metoprolol Tartrate 25 Mg Tab PO Not Given BID YASIR Montelukast Sodium 10 mg 08/06/23 21:00 08/06/23 20:17 Montelukast 10 Mg Tab PO 10 mg HS YASIR Administration Morphine Sulfate 4 mg 08/06/23 15:44 Morphine Sulfate 4 Mg/Ml Syringe IV Q4HR PRN Severe Pain (Scale 7 to 10) Morphine Sulfate 30 mg 08/06/23 21:00 08/07/23 09:14 Morphine Sulfate Er 30 Mg Tablet PO 30 mg BID YASIR Administration Protocol Naloxone HCl 0.2 mg 08/06/23 15:44 Naloxone 0.4 Mg/Ml 1 Ml Vial IV Q2M PRN Opioid Reversal Ondansetron HCl 4 mg 08/06/23 15:44 Ondansetron 4 Mg/2 Ml Vial IVP Q8HR PRN Nausea And Vomiting Pantoprazole Sodium 40 mg 08/06/23 21:00 08/06/23 20:17 Pantoprazole 40 Mg Tablet PO 40 mg HS YASIR Administration Polyethylene Glycol 17 gm 08/07/23 09:00 08/07/23 09:03 Polyethylene Glycol 3350 17 Gm Powd.Pack PO Not Given DAILY YASIR Pregabalin 75 mg 08/06/23 21:00 08/07/23 09:09 Pregabalin 75 Mg Cap PO 75 mg BID YASIR Administration Prochlorperazine Maleate 10 mg 08/06/23 18:52 Prochlorperazine 10 Mg Tab PO Q6H PRN Nausea Tamsulosin HCl 0.4 mg 08/06/23 21:00 08/06/23 20:17 Tamsulosin 0.4 Mg Cap.Er.24h PO 0.4 mg HS YASIR Administration 08/07/23 06:33 08/07/23 06:33
[2023-08-07] MEDS: NOREPINEPHRINE 4 MG in SODIUM CHLORIDE 0.9% 250 ML IV ONE (10:31)
[2023-08-07] MEDS: ASPIRIN 81 MG PO SCH (11:08)
--- NOTE | 2023-08-07 14:31 | P.CNPUL ---
History of Present Illness Consult date: 08/07/23 Requesting physician: Virgen Denny Reason for consult: dyspnea, hypoxemia, abnormal CXR/CT Chief complaint: Shortness of breath History of present illness: This is a 72-year-old male patient with a known history of chronic obstructive pulmonary disease, bladder cancer with previous transurethral resection, paroxysmal atrial fibrillation, hyperlipidemia, hypertension, CVA/TIA, former smoker. He also has a history of metastatic colon cancer with diffuse pulmonary involvement and metastasis to the brain. He has been having issues with recurrent right-sided pleural effusion and had undergone a thoracentesis on 07/07/23 with 2 L of serosanguineous fluid removed. He was recently here again and had a Pleurx catheter placed on 07/31/2023. Cytology was negative for malignancy. Discharged home on 08/03/2023. He re-presented to the emergency room again yesterday 08/06/2023 with complaints of shortness of breath. He was not home long enough to have the home care nurses drain his Pleurx catheter. Chest x-ray shows known multiple pulmonary nodules and masses. Back on COPD. Increasing patchy opacity right mid and lower lung with small effusion. I count 8.9. Hemoglobin 10.9. Sodium 137. Potassium 4.4. Bicarb 34. BUN 24. Creatinine 0.64. Arterial blood gases on 40% FiO2 revealed a PaO2 of 95, pCO2 44, pH 7.51. He is seen today in consultation in the emergency department. Currently sitting up in a stretcher. On BiPAP 07/01 and 40% FiO2. He is breathing a bit easier today compared to yesterday. Review of Systems REVIEW OF SYSTEMS: CONSTITUTIONAL: Denies any recent significant weight loss or weight gain. EYES: Denies change in vision. EARS, NOSE, MOUTH, THROAT: Denies headaches, denies sore throat. CARDIOVASCULAR: Denies chest pain, palpitations or syncopal episodes. RESPIRATORY: Positive for shortness of breath, cough, congestion no hemoptysis. GASTROINTESTINAL: Denies change in appetite, denies abdominal pain GENITOURINARY: Denies hematuria, denies infections. MUSKULOSKELETAL: Denies pain, denies swelling. INTEGUMENTARY: Denies rash, denies eczema. NEUROLOGICAL: Denies recent memory loss, no recent seizure activity. PSYCHIATRIC: Denies anxiety, denies depression. HEMATOLOGIC/LYMPHATIC: Denies anemia, denies enlarged lymph nodes. Past Medical History Past Medical History: Cancer, COPD, CVA/TIA, GERD/Reflux, Hypertension Additional Past Medical History / Comment(s): S4 colon cancer, lung cancer, bladder cancer, brain cancer, new liver lesions on CTA-07/30/2023 History of Any Multi-Drug Resistant Organisms: None Reported Past Surgical History: Bowel Resection, Joint Replacement, Orthopedic Surgery Additional Past Surgical History / Comment(s): repeated right sided thoracent esis-Pleurex 07/31/2023 Past Anesthesia/Blood Transfusion Reactions: No Reported Reaction Past Psychological History: No Psychological Hx Reported Smoking Status: Former smoker Past Alcohol Use History: None Reported Past Drug Use History: Marijuana Medications and Allergies Home Medications Medication Instructions Recorded Confirmed Type Atorvastatin [Lipitor] 40 mg PO HS 06/12/23 08/06/23 History Cholecalciferol [Vitamin D3 (25 25 mcg PO DAILY 06/12/23 08/06/23 History Mcg = 1000 Iu)] Cyanocobalamin (Vitamin B-12) 1,000 mcg PO DAILY 06/12/23 08/06/23 History [Vitamin B-12] DULoxetine HCL [Cymbalta] 60 mg PO HS 06/12/23 08/06/23 History HYDROcodone/APAP 10-325MG [Gepp 1 tab PO Q6H PRN 06/12/23 08/06/23 History 10-325] Montelukast [Singulair] 10 mg PO HS 06/12/23 08/06/23 History Morphine Sulfate ER [Ms Contin] 30 mg PO BID 06/12/23 08/06/23 History [place]-3 Fatty Acids [[place]-3] 4,000 mg PO DAILY 06/12/23 08/06/23 History Pantoprazole [Protonix] 40 mg PO HS 06/12/23 08/06/23 History Pregabalin [Lyrica] 75 mg PO BID 06/12/23 08/06/23 History Prochlorperazine [Compazine] 10 mg PO Q6H PRN 06/12/23 08/06/23 History Tamsulosin [Flomax] 0.4 mg PO HS 06/12/23 08/06/23 History Albuterol Sulfate [Ventolin HFA] 1 - 2 puff INHALATION RT-Q4H PRN 07/06/23 08/06/23 History guaiFENesin [Mucinex] 1,200 mg PO BID 07/06/23 08/06/23 History polyethylene glycoL 3350 [Miralax] 17 gm PO DAILY 07/06/23 08/06/23 History levETIRAcetam [Keppra] 500 mg PO Q12HR #60 tab 07/10/23 08/06/23 Rx Garlic 1,000 mg PO DAILY 07/24/23 08/06/23 History dexAMETHasone ORAL [Hexadrol] See Taper PO DIRECTED 07/24/23 08/06/23 History Ipratropium-Albuterol Nebulize 3 ml INHALATION RT-QID #0 07/26/23 08/06/23 Rx [Duoneb 0.5 mg-3 mg/3 ml Soln] Metoprolol Tartrate [Lopressor] 25 mg PO BID #60 tab 07/26/23 08/06/23 Rx Amiodarone [Cordarone] 200 mg PO BID #60 tab 08/03/23 08/06/23 Rx Allergies Allergy/AdvReac Type Severity Reaction Status Date / Time alprazolam [From Xanax] Allergy Unknown Verified 08/06/23 14:07 scopolamine Allergy Unknown Verified 08/06/23 14:07 metoprolol [From Toprol XL] AdvReac Dizziness Verified 08/06/23 14:07 Physical Exam Osteopathic Statement: *. No significant issues noted on an osteopathic structural exam other than those noted in the History and Physical/Consult. Vitals: Vital Signs Temp Pulse Pulse Resp BP BP Pulse Ox 08/07/23 13:34 95 24 105/57 08/07/23 13:04 96 22 85/53 89 L 08/07/23 12:48 98 18 103/60 88 L 08/07/23 12:00 67/53 08/07/23 11:32 140 H 20 73/57 87 L 08/07/23 11:14 116 H 08/07/23 11:04 120 H 08/07/23 11:02 95 08/07/23 11:00 129 H 24 97/86 96 08/07/23 10:46 138 H 20 97/86 96 08/07/23 10:16 135 H 20 78/50 08/07/23 10:00 149 H 92/50 95 08/07/23 09:31 146 H 22 67/42 94 L 08/07/23 09:00 156 H 25 H 84/59 93 L 08/07/23 08:42 146 H 22 85/73 95 08/07/23 08:00 133 H 23 91/79 08/07/23 07:46 98.8 F 134 H 20 91/79 97 08/07/23 07:44 122 H 08/07/23 07:38 08/07/23 07:32 118 H 08/07/23 07:00 151 H 26 H 99/68 08/07/23 06:00 95 21 140/78 97 08/07/23 05:38 98.4 F 92 16 110/71 97 08/07/23 05:00 92 27 H 121/70 97 08/07/23 04:17 08/07/23 04:00 89 19 120/50 96 08/07/23 03:09 89 18 106/67 96 08/07/23 01:00 81 22 102/83 96 08/07/23 00:01 08/06/23 22:00 77 16 122/68 96 08/06/23 20:25 95 16 123/76 96 08/06/23 20:12 90 08/06/23 20:01 112 H 08/06/23 19:22 92 18 128/79 96 08/06/23 18:08 84 24 113/69 98 08/06/23 15:19 08/06/23 15:00 96 24 107/72 97 FiO2 08/07/23 13:34 08/07/23 13:04 08/07/23 12:48 08/07/23 12:00 08/07/23 11:32 08/07/23 11:14 08/07/23 11:04 08/07/23 11:02 08/07/23 11:00 08/07/23 10:46 08/07/23 10:16 08/07/23 10:00 08/07/23 09:31 08/07/23 09:00 08/07/23 08:42 08/07/23 08:00 08/07/23 07:46 08/07/23 07:44 08/07/23 07:38 40 08/07/23 07:32 08/07/23 07:00 08/07/23 06:00 08/07/23 05:38 08/07/23 05:00 08/07/23 04:17 40 08/07/23 04:00 08/07/23 03:09 08/07/23 01:00 08/07/23 00:01 40 08/06/23 22:00 08/06/23 20:25 08/06/23 20:12 08/06/23 20:01 40 08/06/23 19:22 08/06/23 18:08 08/06/23 15:19 40 08/06/23 15:00 Intake and Output 08/06/23 08/07/23 08/07/23 22:59 06:59 14:59 Output Total 150 Balance -150 Output: Drainage 150 Right Chest 150 GENERAL EXAM: Alert, pleasant 72-year-old male, on BiPAP 07/01 at 40% FiO2, fela rly comfortable in no apparent distress. HEAD: Normocephalic. EYES: Normal reaction of pupils, equal size. NOSE: Clear with pink turbinates. THROAT: No erythema or exudates. NECK: No masses, no JVD. CHEST: No chest wall deformity. Right-sided Pleurx catheter secured in place. LUNGS: Equal air entry with scattered rhonchi, crackles and dullness in the right lung base. CVS: S1 and S2 normal with no audible murmur, regular rhythm. ABDOMEN: No hepatosplenomegaly, normal bowel sounds, no guarding or rigidity. SPINE: No scoliosis or deformity SKIN: No rashes CENTRAL NERVOUS SYSTEM: No focal deficits, tone is normal in all 4 extremities. EXTREMITIES: There is no peripheral edema. No clubbing, no cyanosis. Peripheral pulses are intact. Results - Laboratory Findings CBC and BMP: 08/07/23 06:33 08/07/23 06:33 ABG ABG pH 7.51 (7.35-7.45) H 08/06/23 19:55 ABG pCO2 44 mmHg (35-45) 08/06/23 19:55 ABG pO2 95 mmHg (83-108) 08/06/23 19:55 ABG O2 Saturation 98.0 % (94-97) H 08/06/23 19:55 PT/INR, D-dimer PT 10.7 sec (10.0-12.5) 08/06/23 12:32 INR 1.0 (<1.2) 08/06/23 12:32 Abnormal lab findings: Abnormal Labs 08/06/23 08/06/23 08/06/23 12:32 12:32 12:32 WBC 11.9 H RBC Hgb 11.6 L Hct 36.2 L MCHC RDW 16.5 H Neutrophils # 10.7 H Lymphocytes # 0.9 L ABG pH ABG HCO3 ABG Total CO2 ABG O2 Saturation Sodium 135 L Chloride 95 L Carbon Dioxide 33 H BUN 31 H Creatinine Glucose 145 H Calcium ALT 71 H Alkaline Phosphatase 150 H Troponin I 0.200 H* Total Protein 5.6 L Albumin 2.6 L Urine Protein Urine Blood Urine RBC Urine Mucus 08/06/23 08/06/23 08/07/23 19:18 19:55 03:42 WBC RBC Hgb Hct MCHC RDW Neutrophils # Lymphocytes # ABG pH 7.51 H ABG HCO3 35 H ABG Total CO2 36 H ABG O2 Saturation 98.0 H Sodium Chloride Carbon Dioxide BUN Creatinine Glucose Calcium ALT Alkaline Phosphatase Troponin I 0.100 H* Total Protein Albumin Urine Protein Trace H Urine Blood Large H Urine RBC >182 H Urine Mucus Rare H 08/07/23 08/07/23 08/07/23 06:33 06:33 10:09 WBC RBC 4.12 L Hgb 10.9 L Hct 35.3 L MCHC 30.8 L RDW 16.8 H Neutrophils # Lymphocytes # ABG pH ABG HCO3 ABG Total CO2 ABG O2 Saturation Sodium Chloride 96 L Carbon Dioxide 34 H BUN 24 H Creatinine 0.64 L Glucose Calcium 8.2 L ALT Alkaline Phosphatase Troponin I 0.044 H* Total Protein Albumin Urine Protein Urine Blood Urine RBC Urine Mucus - Diagnostic Findings Chest x-ray: image reviewed Assessment and Plan Assessment: Acute hypoxemic respiratory failure secondary to recurrent pleural effusions right greater than left, right-sided Pleurx catheter placed on 07/31/2023 History of right pleural effusion status post thoracentesis on 07/07/2023 Frequent readmissions to the hospital secondary to above History of metastatic colon cancer to the brain being followed at [facility] for clinical trials Chronic obstructive pulmonary disease History of bladder cancer status post transurethral resection History of nephrolithiasis and left-sided hydronephrosis History of paroxysmal atrial fibrillation, not on anticoagulation Hyperlipidemia Hypertension History of CVA/TIA Former smoker Plan: The patient was seen and evaluated Chest x-ray, labs and medications reviewed Currently on BiPAP could be transitioned to nasal cannula Pleurx catheter set up for drainage DO NOT RESUSCITATE/DO NOT INTUBATE CODE STATUS May need palliative/hospice care We will continue to follow and make further recommendations based on his clinical status I have personally seen and examined the patient, performed the documentation and the assessment and plan as written. Number of minutes spent on the visit: 20.
--- NOTE | 2023-08-07 15:38 | P.PN ---
Subjective Progress Note Date: 08/07/23 Patient is a 72-year-old male with stage IV metastatic colon cancer with known metastases to liver, lung, and brain with recurrent right-sided pleural effusions and recent pleurX cath placement and A fib. Patient is well known to our group with 5 hospitalizations in the last 2 months. He was recently disc hared on 08/03/23 after pleurx cath was placed, during that same hospital stay he struggled with A-fib with RVR and was discharged home on amiodarone. Due to a low [id number] score and known brain mass with surrounding vasogenic edema he is not on anticoagulation. On arrival to the ER he underwent extensive evaluation. His initial heart rate was 105, blood pressure 87/63, and O2 sat 89% on 6 L nasal cannula. Initial laboratory analysis included CBC, coags, CMP, magnesium, troponin, and BNP which were remarkable for white blood cell count of 11.9, hemoglobin 11.6, BUN 31, ALT 71, alkaline phosphatase 150, troponin 0.2, BNP 3430. He was also noted to be in and out of A-fib with rapid ventricular response. In the ER he was given a DuoNeb and given 15 mg of IV Cardizem without significant change in his heart rate. He was placed on BiPAP which seemed to help with his heart rate. He again worsened overnight. He was seen by cardiology and started on amiodarone drip. He had some hypotensive and was given a 500 cc bolus. Patient seen and examined at bedside. He is awake, alert, and oriented. He states he is doing "fine today". He did have some respiratory distress earlier. He is having significant conversational dyspnea. He denies any pain. Vital signs reviewed General: Nontoxic, no distress, appears at stated age Cardiovascular: S1S2 reg, no murmur, positive posterior tibial pulse bilateral, Lungs: CTA bilateral, no rhonchi, no rales, no accessory muscle use Abdominal: Soft, nontender to palpation, no guarding, no appreciable organomegaly Ext: No gross muscle atrophy, no edema b/l lower extremities, no contractures Neuro: CN II-XI grossly intact, no focal neuro deficits Psych: Alert, oriented, appropriate affect Assessment/Plan: Acute hypoxic respiratory failure A-fib with RVR Metastatic colon cancer with mets to liver, lung, and brain with surround vasogenic edema 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 Acute metabolic encephalopathy with tremor Leukocytosis Elevated troponin, suspect due to hhypoxia and Afib -Paulo's catheter drained with 150 cc of fluid -Continue with BiPAP support as needed -On amiodarone drip with oral amiodarone hold -Aspirin 81 mg daily, Lipitor 40 mg daily -Discontinue Lopressor due to hypotension -Guaifenesin 1200 mg twice daily, DuoNebs 4 times daily scheduled, albuterol every 2 hours as needed -Keppra 500 mg twice daily -Decadron 4 mg daily -Pulmonary consultation reviewed: Poor overall prognosis. -Cardiology note reviewed: IV amiodarone, Levophed as needed if remains hy potensive, no anticoagulation secondary to brain mass. Intractable pain related to malignancy -Resume home morphine sulfate 30 mg twice daily, and [place] 10/325 every 6 hours, Lyrica 75 mg twice daily -Morphine 4 mg IV every 4 hours as needed for severe pain I had a very noe discussion with Skip and his significant other Lauren at bedside. I highly recommended a DO NOT RESUSCITATE status and signing on with hospice care. Despite Skip having wanted to continue aggressive treatment he continues to have recurrent hospitalizations. The last time he mated out of the hospital only 2 days before coming back. He is essentially here for the same thing that he was here for last time which is shortness of breath and unstable heart rhythms. We discussed that this is due to his overwhelming cancer burden in his lungs that are too much for his lungs and his heart to handle at this time. I recommend against things such as CPR and life support at this time due to his poor overall prognosis and the inability to treat his underlying cause of clinical deterioration which is his cancer. Patient is in agreement at the time my exam he is alert, awake, conversational, and actively engaged in our discussion. CODE STATUS transitioned to DO NOT RESUSCITATE. I also suggested that they meet with hospice and consider signing as I anticipate his clinical situation to continue to worsen. Patient and significant other were in agreement. Hospice spoke with his daughter Teresa who states that she is his power of real estate attorney and that she does not want to sign on with hospice at this time and they are awaiting more family to arrive and will discuss the possibility of hospice at that point. Imaging: None new Data Review: Labs reviewed from today include CBC basic metabolic profile and troponin which are remarkable for hemoglobin 10.9, BUN 24, troponin 0.44 DVT prophylaxis: Lovenox Anticipated discharge date: Pending clinical course Anticipated discharge place: Hospice This dictation was prepared using [employer] voice recognition software. Though every attempt is made to correct errors during dictation some may still exist. Objective - Vital Signs Vital signs: Vital Signs Temp 98.8 F 08/07/23 07:46 Pulse 87 08/07/23 14:58 Resp 21 08/07/23 14:58 BP 104/68 08/07/23 14:58 Pulse Ox 85 L 08/07/23 15:29 FiO2 40 08/07/23 07:38 Intake & Output 08/06/23 08/07/23 08/07/23 18:59 06:59 18:59 Output Total 150 Balance -150 Weight 108.862 kg Output: Drainage 150 Right Chest 150 - Labs CBC & Chem 7: 08/07/23 06:33 08/07/23 06:33 Labs: Abnormal Lab Results - Last 24 Hours (Table) 08/06/23 08/06/23 08/07/23 Range/Units 19:18 19:55 03:42 RBC (4.30-5.90) m/uL Hgb (13.0-17.5) gm/dL Hct (39.0-53.0) % MCHC (31.0-37.0) g/dL RDW (11.5-15.5) % ABG pH 7.51 H (7.35-7.45) ABG HCO3 35 H (21-25) mmol/L ABG Total CO2 36 H (19-24) mmol/L ABG O2 Saturation 98.0 H (94-97) % Chloride (98-107) mmol/L Carbon Dioxide (22-30) mmol/L BUN (9-20) mg/dL Creatinine (0.66-1.25) mg/dL Calcium (8.4-10.2) mg/dL Troponin I 0.100 H* (0.000-0.034) ng/mL Urine Protein Trace H (Negative) Urine Blood Large H (Negative) Urine RBC >182 H (0-5) /hpf Urine Mucus Rare H (None) /hpf 08/07/23 08/07/23 08/07/23 Range/Units 06:33 06:33 10:09 RBC 4.12 L (4.30-5.90) m/uL Hgb 10.9 L (13.0-17.5) gm/dL Hct 35.3 L (39.0-53.0) % MCHC 30.8 L (31.0-37.0) g/dL RDW 16.8 H (11.5-15.5) % ABG pH (7.35-7.45) ABG HCO3 (21-25) mmol/L ABG Total CO2 (19-24) mmol/L ABG O2 Saturation (94-97) % Chloride 96 L (98-107) mmol/L Carbon Dioxide 34 H (22-30) mmol/L BUN 24 H (9-20) mg/dL Creatinine 0.64 L (0.66-1.25) mg/dL Calcium 8.2 L (8.4-10.2) mg/dL Troponin I 0.044 H* (0.000-0.034) ng/mL Urine Protein (Negative) Urine Blood (Negative) Urine RBC (0-5) /hpf Urine Mucus (None) /hpf
[2023-08-07] MEDS: AMIODARONE 450 MG in DEXTROSE 5% IN WATER 250 ML IV SCH (16:12)
[2023-08-07] MEDS: dexAMETHasone 4 MG TAB PO SCH (17:42)
--- NOTE | 2023-08-08 11:56 | CA ---
Transthoracic Echo Report Name: Skip Hernandez Age: 72 Gender: M : 1950 Exam Date: 08/07/2023 14:47 Exam Location: [facility] Ht (in): 72 Wt (lb): 240 Ordering Physician: Moira Dickson Attending/Referring Phys: [id number], Yessi [employer] Engineer Pyhllis Lundberg RDCS Procedure CPT: Indications: LV function Cardiac Hx: Technical Quality: Fair Contrast 1: Total Dose (mL): Contrast 2: Total Dose (mL): MEASUREMENTS (Male / Female) Normal Values 2D ECHO LV Diastolic Diameter PLAX 3.5 cm 4.2 - 5.9 / 3.9 - 5.3 cm LV Systolic Diameter PLAX 2.7 cm IVS Diastolic Thickness 1.3 cm 0.6 - 1.0 / 0.6 - 0.9 cm LVPW Diastolic Thickness 1.6 cm 0.6 - 1.0 / 0.6 - 0.9 cm LV Relative Wall Thickness 0.9 DOPPLER LVOT Peak Velocity 96.1 cm/s LVOT Peak Gradient 3.7 mmHg LVOT Velocity Time Integral 19.9 cm FINDINGS Left Ventricle Mildly increased septal wall thickness. Normal left ventricular systolic function with no obvious regional wall motion abnormalities. Left ventricular ejection fraction is estimated at 55 %. Right Ventricle Right Atrium Left Atrium Mitral Valve Aortic Valve Tricuspid Valve Pulmonic Valve Pericardium No pericardial effusion. Aorta CONCLUSIONS Normal LV systolic function No pericardial effusion Previewed by: Dr. Braxton Champion MD (Electronically Signed) Final Date: 08 August 2023 11:56
[2023-08-08] MEDS: AMIODARONE 200 MG TAB PO SCH (12:13)
--- NOTE | 2023-08-08 12:20 | P.PN ---
Subjective Progress Note Date: 08/08/23 Principal diagnosis: Shortness of breath. This is a 72-year-old male patient with a known history of chronic obstructive pulmonary disease, bladder cancer with previous transurethral resection, paroxysmal atrial fibrillation, hyperlipidemia, hypertension, CVA/TIA, former smoker. He also has a history of metastatic colon cancer with diffuse pulmonary involvement and metastasis to the brain. He has been having issues with recurrent right-sided pleural effusion and had undergone a thoracentesis on 07/07/23 with 2 L of serosanguineous fluid removed. He was recently here again and had a Pleurx catheter placed on 07/31/2023. Cytology was negative for malignancy. Discharged home on 08/03/2023. He re-presented to the emergency room again yesterday 08/06/2023 with complaints of shortness of breath. He was not home long enough to have the home care nurses drain his Pleurx catheter. Chest x-ray shows known multiple pulmonary nodules and masses. Back on COPD. Increasing patchy opacity right mid and lower lung with small effusion. I count 8.9. Hemoglobin 10.9. Sodium 137. Potassium 4.4. Bicarb 34. BUN 24. Creatinine 0.64. Arterial blood gases on 40% FiO2 revealed a PaO2 of 95, pCO2 44, pH 7.51. He is seen today in consultation in the emergency department. Currently sitting up in a stretcher. On BiPAP 12/6 and 40% FiO2. He is breathing a bit easier today compared to yesterday. Progress note dated 08/08/2023. 72-year-old male with history of COPD, bladder cancer, atrial fibrillation, hyperlipidemia, and metastatic colon cancer, who was seen in the emergency department yesterday. The patient is seen today in room 351. The patient developed atrial fibrillation, and is currently on amiodarone 0.5 mg/m. He did use of BiPAP last night, with settings of 12/6, and 40%. Currently he is on 5 L. The patient's getting saline at 20 mL an hour. He seems to be resting comfortably, laying flat in bed. The patient is a DO NOT RESUSCITATE patient. Current laboratory data are only from August 07, and nothing from August 08. Objective - Vital Signs Vital signs: Vital Signs Temp 97.9 F 08/08/23 08:00 Pulse 80 08/08/23 11:44 Resp 19 08/08/23 08:00 BP 126/71 08/08/23 08:00 Pulse Ox 94 L 08/08/23 08:00 FiO2 40 08/08/23 04:00 Intake & Output 08/07/23 08/08/23 08/08/23 18:59 06:59 18:59 Intake Total 248.06 180 Output Total 150 1300 Balance -150 -1051.94 180 Weight 108.862 kg Intake: IV 20 Invasive Line 1 10 Invasive Line 2 10 Intake, IV Titration 228.06 Amount Amiodarone 450 mg In 228.06 Dextrose 5% in Water 250 ml @ 0.5 MG/MIN 16.667 mls/hr IV .Q15H [facility] Rx#: [id number] Oral 180 Output: Drainage 150 Right Chest 150 Urine 1300 Other: Voiding Method Indwelling Catheter Indwelling Catheter Indwelling Catheter # Bowel Movements 1 - Exam No acute distress, oriented 3. Currently on 5 L nasal cannula. No conversational dyspnea or use of accessory muscles. HEENT examination is grossly unremarkable. Mucous membranes are moist. No oral lesions. Neck supple. Full range of motion. No adenopathy thyromegaly or neck vein distention. Cardiovascular examination reveals regular rhythm rate. S1-S2 normal. No S3 or S4. No discernible murmur noted. Heart sounds are distant. Heart rate 80 bpm. Lungs reveal scattered bilateral rhonchi and wheezes. Breath sounds equal. No crackles. 5 L saturation is 94%. Abdomen soft bowel sounds are heard. No masses or tenderness. Extremities are intact. No cyanosis clubbing or edema. Skin is without rash or lesion. Neurologic examination is brief but nonfocal. - Labs CBC & Chem 7: 08/07/23 06:33 08/07/23 06:33 Assessment and Plan Assessment: Acute hypoxemic respiratory failure secondary to recurrent pleural effusions right greater than left, right-sided Pleurx catheter placed on 07/31/2023. History of right pleural effusion status post thoracentesis on 07/07/2023. Frequent readmissions to the hospital secondary to above. History of metastatic colon cancer to the brain being followed at [facility] for clinical trials. Chronic obstructive pulmonary disease. History of bladder cancer status post transurethral resection. History of nephrolithiasis and left-sided hydronephrosis. History of paroxysmal atrial fibrillation, not on anticoagulation. Hyperlipidemia. Hypertension. History of CVA/TIA. Former smoker. Plan: Plan dated 08/08/2023. The patient is seen today in room 351. The patient wore the BiPAP device last night, with settings of 12/6, and 40%. Currently, he's on 5 L nasal cannula. He is laying nearly flat in bed. Patient is also getting saline at 20 mL an hour. The patient was started on amiodarone 0.5 mg/m, for paroxysmal atrial fibrillation. The patient is a DO NOT RESUSCITATE patient. Labs, x-rays, and medications are reviewed. The patient's overall prognosis remains very guarded. We'll continue to follow the patient, and make recommendations along the way. Time with Patient: Less than 30
--- NOTE | 2023-08-08 12:48 | P.PN ---
Subjective Progress Note Date: 08/08/23 Hospital course: Patient is a very pleasant 72-year-old male with a past medical history of stage IV metastatic colon cancer with known metastases to liver, lung, and brain with recurrent right-sided pleural effusions and recent pleurX cath placement and A fib. Patient is well known to our group with 5 hospitalizations in the last 2 months. He was recently dischared on 08/03/23 after pleurx cath was placed, during that same hospital stay he struggled with A-fib RVR and was discharged home on amiodarone. Due to a low [id number] score and known brain mass with surrounding vasogenic edema he was not started on anticoagulation. Upon arrival to the emergency department on 08/06/23, patient underwent extensive evaluation. His initial heart rate was 105, blood pressure 87/63, and O2 sat 89% on 6 L nasal cannula. EKG showing atrial fibrillation with RVR at 103 bpm. Chest x-ra y showing known multiple pulmonary nodules and masses with background COPD and increasing opacity of right mid and lower lung with possible small effusion. Labs were completed and reviewed. CBC showing leukocytosis with WBC count of 11.9 and stable normocytic anemia with hemoglobin of 11.6. Coagulation profile normal findings. BMP revealing hypercarbia with bicarb of 33 and prerenal azotemia with BMI of 31. Magnesium normal findings at 1.8. Liver profile showing elevated ALT of 71 and alkaline phosphatase of 150. Initial troponin 0.200. ProBNP 3430. During his time in the emergency department patient was also reported to be going in and out of A-fib with rapid ventricular response. He was given a DuoNeb and given 15 mg of IVP Cardizem without significant change in his heart rate. He was placed on BiPAP which initially seemed to help with his heart rate and hypoxia however he again worsened overnight with uncontrolled rapid ventricular rate. Patient was admitted under our services with consultation to cardiology for atrial fibrillation with RVR and pulmonology for acute on chronic respiratory failure with hypoxia and hypercarbia. Troponins were trended resulting in 0.200, 0.100, and 0.044. He was seen by cardiology and started on amiodarone infusion. He had episodes of hypotension and was given a 500 cc bolus. Currently vital signs are stable with blood pressure 126/71, heart rate 77, respiratory rate 19, temp 97.9F, and SpO2 of 94% on 5 L O2 via nasal cannula. Physical exam: Patient seen and fully evaluated at bedside this morning. Patient resting comfortably with family at bedside. He has been weaned off of BiPAP and currently maintaining SpO2 greater than 90% on 5 L O2 via nasal cannula. Patient reports that he is comfortable and denies having any questions, needs, concerns or complaints at this time. Vital signs reviewed and stable. General: Nontoxic, no distress and appears stated age. Derm: Skin warm and dry, normal coloration for ethnicity. Head: Atraumatic, normocephalic and symmetric. Eyes: EOMs intact, no lid lag, and anicteric sclera Mouth: no lip lesions, mucus membranes moist Cardiovascular: Irregularly irregular, no murmur, positive posterior tibial pulses bilaterally, and cap refill < 2 seconds. Lungs: Respirations even, regular, and unlabored on 5 L O2 via nasal cannula. Lungs diffuse rhonchi and soft expiratory wheezes. No accessory muscle usage. Abdominal: soft, nontender to palpation, no guarding, no appreciable organomegaly Ext: ROM intact. No gross muscle atrophy, no edema, no contractures Neuro: Speech clear, face symmetrical and CN II-XII grossly intact with no noted focal neuro deficits Psych: Alert and oriented to person, place, time, and situation. Appropriate and pleasant affect. Assessment and Plan of Care: Mr. Donovan is a very pleasant 72-year-old male with a past medical history of stage IV metastatic colon cancer with known metastasis to liver, lung, and brain with recurrent right-sided pleural effusions and recent Pleurx catheter placement. He is currently admitted for acute on chronic respiratory failure with hypoxia and hypercarbia along with atrial fibrillation with recurrent rapid ventricular rates. Discussions have been brought up regarding hospice care and family is evaluating and discussing our options at this time. Patient's daughter and power of insurance attorney met with hospice on 08/07/23 but stated she needed to discuss with additional family prior to making these decisions. Patient's daughter at bedside this morning states additional family members to arrive [place] today and they plan to further discuss options going forward. Acute on chronic respiratory failure with hypoxia and hypercarbia. A-fib with RVR Metastatic colon cancer with mets to liver, lung, and brain with surround vasogenic edema 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 Acute metabolic encephalopathy with tremor Leukocytosis Elevated troponins, suspect type II [place] due to hypoxia and Afib -Continue care PleurX catheter -Continue with BiPAP support as needed, currently on 5 L O2 via nasal cannula -Oral Amiodarone hold at this time and patient remains on amiodarone infusion at 0.5 mg/m are 16.7 mL/h -Continue Aspirin 81 mg daily and Lipitor 40 mg daily -Lopressor was discontinued secondary to hypotension -Continue with Guaifenesin 1200 mg twice daily, -Continue scheduled DuoNebs 4 times daily along with albuterol every 2 hours as needed for shortness of breath and/or wheezing -Continue Keppra 500 mg twice daily -Continue Decadron 4 mg daily -Pulmonary consultation reviewed: Poor overall prognosis. -Cardiology note reviewed: Continue IV amiodarone, no anticoagulation secondary to brain mass. Intractable pain related to malignancy -Resume home morphine sulfate 30 mg twice daily, [place] 10/325 every 6 hours as needed, and Lyrica 75 mg twice daily -Morphine 4 mg IV every 4 hours as needed for severe breakthrough pain Data and imaging reviewed: -Vital signs reviewed. Currently vital signs are stable with blood pressure 126/71, heart rate 77, respiratory rate 19, temp 97.9F, and SpO2 of 94% on 5 L O2 via nasal cannula. CODE STATUS: DO NOT RESUSCITATE/DO NOT INTUBATE DVT prophylaxis: Lovenox Anticipated discharge date: Clinical course to determine Anticipated discharge place: Home with home care versus hospice Patient was seen independently by Nurse Pracitioner. This document was prepared using [employer] dictation software. Please allow for errors in ski lift mechanic, while rare they do occur. Cory Bentley NP rendered care for this patient independently, reviewed the findings and plan as documented in the note above. I did not physically speak with or examine the patient on this date. Objective - Vital Signs Vital signs: Vital Signs Temp 97.4 F L 08/08/23 04:00 Pulse 82 08/08/23 04:00 Resp 17 08/08/23 04:00 BP 105/69 08/08/23 04:00 Pulse Ox 97 08/08/23 04:00 FiO2 40 08/08/23 04:00 Intake & Output 08/07/23 08/08/23 08/08/23 18:59 06:59 18:59 Intake Total 248.06 Output Total 150 1300 Balance -150 -1051.94 Weight 108.862 kg Intake: IV 20 Invasive Line 1 10 Invasive Line 2 10 Intake, IV Titration 228.06 Amount Amiodarone 450 mg In 228.06 Dextrose 5% in Water 250 ml @ 0.5 MG/MIN 16.667 mls/hr IV .Q15H [facility] Rx#: [id number] Output: Drainage 150 Right Chest 150 Urine 1300 Other: Voiding Method Indwelling Catheter Indwelling Catheter # Bowel Movements 1 - Labs CBC & Chem 7: 08/08/23 11:01 08/08/23 11:01 Labs: Abnormal Lab Results - Last 24 Hours (Table) 08/07/23 Range/Units 10:09 Troponin I 0.044 H* (0.000-0.034) ng/mL
[2023-08-08 13:17] LABS: Anisocytosis Slight; HCT 31.7 % (39.0-53.0); HGB 9.8 gm/dL (13.0-17.5); Hypochromasia Moderate; MCH 26.5 pg (25.0-35.0); MCHC 30.7 g/dL (31.0-37.0); MCV 86.3 fL (80.0-100.0); Platelet Count 245 k/uL (150-450); RBC 3.68 m/uL (4.30-5.90); RDW 16.6 % (11.5-15.5); WBC 9.6 k/uL (3.8-10.6)
[2023-08-08 13:34] LABS: ALT 35 U/L (4-49); AST 26 U/L (17-59); African American GFR (CKD) >90 (>60 ml/min/1.73 sqM); Albumin 2.3 g/dL (3.5-5.0); Alkaline Phosphatase 115 U/L (38-126); Anion Gap 9 mmol/L; Blood Urea Nitrogen 21 mg/dL (9-20); Calcium 8.2 mg/dL (8.4-10.2); Carbon Dioxide 30 mmol/L (22-30); Chloride 96 mmol/L (98-107); Glucose 271 mg/dL (74-99); Non-African American GFR(CKD) >90 (>60 ml/min/1.73 sqM); Phosphorus 3.4 mg/dL (2.5-4.5); Potassium 4.5 mmol/L (3.5-5.1); Sodium 135 mmol/L (137-145); Total Bilirubin 0.4 mg/dL (0.2-1.3)
[2023-08-08] MEDS: MORPHINE SULFATE 4 MG/ML SYRINGE IV PRN (15:29)
[2023-08-09] MEDS: LORazepam 2 MG/ML INJ IV PRN (00:03)
[2023-08-09] MEDS: FUROSEMIDE 10 MG/ML 4 ML VIAL IV STA (00:45)
[2023-08-09] MEDS: ACETAMINOPHEN TAB 325 MG TAB PO PRN (02:46)
[2023-08-09] MEDS ORDERED: VANCOMYCIN IV PER PHARMACY 1 EACH MISC MISCELLANE PRN (04:21)
--- NOTE | 2023-08-09 05:09 | XR ---
EXAMINATION TYPE: XR chest 1V portable DATE OF EXAM: 08/09/2023 CLINICAL HISTORY: Hypoxia and fever. TECHNIQUE: Single AP portable semiupright view of the chest is obtained. COMPARISON: Chest x-ray from 3 days earlier FINDINGS: Stable right internal jugular Mediport catheter. Persistent bilateral lower lung opacities and small right pleural effusion with pleural drainage catheter. Cardiac silhouette size stable and upper limits of normal. Advanced degenerative change bilateral glenohumeral joints is seen. Old later al left upper to midrib fractures are suspected. IMPRESSION: Persistent right greater than left bibasilar acute infiltrate and/or atelectasis. Small r ight basilar pleural fluid collection with percutaneous pleural drainage catheter.
[2023-08-09] MEDS: PIPERACILLIN-TAZOBACTAM 3.375 GM in SODIUM CHLORIDE 0.9% 100 ML IVPB SCH (05:11)
[2023-08-09] MEDS: DEXTROSE 5% IN WATER 100 ML with AMIODARONE 150 MG IV ONE (05:23)
[2023-08-09] MEDS: AMIODARONE 360 MG in DEXTROSE 5% IN WATER 200 ML IV ONE (05:33)
[2023-08-09] MEDS: VANCOMYCIN 1,750 MG in SODIUM CHLORIDE 0.9% 500 ML 500 ML IVPB SCH (05:39)
--- NOTE | 2023-08-09 08:13 | P.PN ---
Subjective Progress Note Date: 08/09/23 Principal diagnosis: Shortness of breath The patient was seen and evaluated this morning. He continues to be hypoxic. He is on BiPAP at this point. The pulmonary team continues to be on the case. Beside that he went into atrial fibrillation with RVR yesterday and that he was started on amiodarone IV. The pressure is soft but I'm going to start on a small dose of beta emily with metoprolol. He is not on any oral anticoagulation because of increased risk of bleeding especially that the patient does have possible metastasis to the brain from the colon cancer. The examination is remarkable for diminished breathing sounds bilaterally with bilateral expiratory wheezing and irregular rhythm with distant heart sounds and a change in mental status Assessment Metastatic colon cancer Persistent atrial fibrillation Change in mental status Acute hypoxic respiratory failure Plan Continue amiodarone IV and switch the patient on amiodarone orally Hold on any anticoagulation at this point Start the patient on small dose of beta emily Follow-up with the patient Objective - Vital Signs Vital signs: Vital Signs Temp 99.2 F 08/09/23 04:23 Pulse 129 H 08/09/23 06:20 Resp 30 H 08/09/23 06:20 BP 106/72 08/09/23 06:20 Pulse Ox 92 L 08/09/23 06:20 FiO2 65 08/09/23 06:20 Intake & Output 08/08/23 08/09/23 08/09/23 18:59 06:59 18:59 Intake Total 600 40 Output Total 900 1400 Balance -300 -1360 Weight 107.5 kg Intake: IV 40 Invasive Line 1 20 Invasive Line 2 20 Oral 600 Output: Urine 900 1400 Other: Voiding Method Indwelling Catheter Indwelling Catheter - Labs CBC & Chem 7: 08/08/23 11:01 08/08/23 11:01 Labs: Abnormal Lab Results - Last 24 Hours (Table) 08/08/23 08/08/23 Range/Units 11:01 11:01 RBC 3.68 L (4.30-5.90) m/uL Hgb 9.8 L (13.0-17.5) gm/dL Hct 31.7 L (39.0-53.0) % MCHC 30.7 L (31.0-37.0) g/dL RDW 16.6 H (11.5-15.5) % Sodium 135 L (137-145) mmol/L Chloride 96 L (98-107) mmol/L BUN 21 H (9-20) mg/dL Creatinine 0.60 L (0.66-1.25) mg/dL Glucose 271 H (74-99) mg/dL Calcium 8.2 L (8.4-10.2) mg/dL Total Protein 5.0 L (6.3-8.2) g/dL Albumin 2.3 L (3.5-5.0) g/dL
--- NOTE | 2023-08-09 11:20 | P.PN ---
Subjective Progress Note Date: 08/09/23 Hospital course: Patient is a very pleasant 72-year-old male with a past medical history of stage IV metastatic colon cancer with known metastases to liver, lung, and brain with recurrent right-sided pleural effusions and recent pleurX cath placement and A fib. Patient is well known to our group with 5 hospitalizations in the last 2 months. He was recently dischared on 08/03/23 after pleurx cath was placed, during that same hospital stay he struggled with A-fib RVR and was discharged home on amiodarone. Due to a low [id number] score and known brain mass with surrounding vasogenic edema he was not started on anticoagulation. Upon arrival to the emergency department on 08/06/23, patient underwent extensive evaluation. His initial heart rate was 105, blood pressure 87/63, and O2 sat 89% on 6 L nasal cannula. EKG showing atrial fibrillation with RVR at 103 bpm. Chest x-ra y showing known multiple pulmonary nodules and masses with background COPD and increasing opacity of right mid and lower lung with possible small effusion. Labs were completed and reviewed. CBC showing leukocytosis with WBC count of 11.9 and stable normocytic anemia with hemoglobin of 11.6. Coagulation profile normal findings. BMP revealing hypercarbia with bicarb of 33 and prerenal azotemia with BMI of 31. Magnesium normal findings at 1.8. Liver profile showing elevated ALT of 71 and alkaline phosphatase of 150. Initial troponin 0.200. ProBNP 3430. During his time in the emergency department patient was also reported to be going in and out of A-fib with rapid ventricular response. He was given a DuoNeb and given 15 mg of IVP Cardizem without significant change in his heart rate. He was placed on BiPAP which initially seemed to help with his heart rate and hypoxia however he again worsened overnight with uncontrolled rapid ventricular rate. Patient was admitted under our services with consultation to cardiology for atrial fibrillation with RVR and pulmonology for acute on chronic respiratory failure with hypoxia and hypercarbia. Troponins were trended resulting in 0.200, 0.100, and 0.044. He was seen by cardiology and started on amiodarone infusion. He had episodes of hypotension and was given a 500 cc bolus. Urinalysis was obtained positive for blood and greater than 182 RBCs, but negative for infection with only 4 WBCs. Discussions have been brought up regarding hospice care and family is evaluating and discussing their options at this time. Patient's daughter and power of trial attorney met with hospice on 08/07/23 but stated she needed to discuss with additional family prior to making these decisions. compliance engineer, pt again with atrial fibrillation with RVR and was noted to spike an elevated temp of 101.6F. At this time orders were placed for blood cultures and pt was started on broad spectrum antibiotics with Vancomycin and Zosyn. Overall prognosis is poor. Physical exam: Patient seen and fully evaluated at bedside this morning. Vital signs reviewed and stable. General: Nontoxic, no distress and appears stated age. Derm: Skin warm and dry, normal coloration for ethnicity. Head: Atraumatic, normocephalic and symmetric. Eyes: EOMs intact, no lid lag, and anicteric sclera Mouth: no lip lesions, mucus membranes moist Cardiovascular: Irregularly irregular, no murmur, positive posterior tibial pulses bilaterally, and cap refill < 2 seconds. Lungs: Respirations even, regular, and unlabored. Lungs diffuse rhonchi and soft expiratory wheezes. No accessory muscle usage. Abdominal: soft, nontender to palpation, no guarding, no appreciable organomegaly Ext: ROM intact. No gross muscle atrophy, no edema, no contractures Neuro: Speech clear, face symmetrical and CN II-XII grossly intact with no noted focal neuro deficits Psych: Alert and oriented to person, place, time, and situation. Appropriate and pleasant affect. Assessment and Plan of Care: Mr. Donovan is a very pleasant 72-year-old male with a past medical history of stage IV metastatic colon cancer with known metastasis to liver, lung, and brain with recurrent right-sided pleural effusions and recent Pleurx catheter placement. He is currently admitted for acute on chronic respiratory failure with hypoxia and hypercarbia along with atrial fibrillation with recurrent episodes of RVR.. Discussions have been brought up regarding hospice care and family is evaluating and discussing their options at this time. Patient's daughter and power of trial attorney met with hospice on 08/07/23 but she declined their services at that time as she stated she needed to discuss with additional family prior to making these decisions. compliance engineer, pt again with atrial fibrillation with RVR and was noted to spike an elevated temp of 101.6F and have increased oxygen needs. Patient was placed back on BiPAP requiring FiO2 of 65% to maintain SpO2 of >90%. At this time orders were placed for blood cultures and pt was started on broad spectrum antibiotics with Vancomycin and Zosyn. Overall prognosis is poor. Acute on chronic respiratory failure with hypoxia and hypercarbia, concerns of development of postobstructive pneumonia with elevated temp. A-fib with RVR Acute metabolic encephalopathy likely secondary to above Metastatic colon cancer with mets to liver, lung, and brain with surround vasogenic edema 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 Acute metabolic encephalopathy with tremor Leukocytosis Elevated troponins, suspect type II [place] due to hypoxia and Afib -Continue care PleurX catheter -Continue with BiPAP support as needed -Continue IV antibiotics of vancomycin and Zosyn -Follow up on blood culture results. -Continue amiodarone infusion at 0.5 mg/m or 16.7 mL/h -Continue Aspirin 81 mg daily and Lipitor 40 mg daily -Lopressor was discontinued secondary to hypotension -Continue with Guaifenesin 1200 mg twice daily, -Continue scheduled DuoNebs 4 times daily along with albuterol every 2 hours as needed for shortness of breath and/or wheezing -Continue Keppra 500 mg twice daily -Continue Decadron 4 mg daily -Pulmonary consultation reviewed: Poor overall prognosis. -Cardiology note reviewed: Continue IV amiodarone, no anticoagulation secondary to brain mass. Intractable pain related to malignancy -Resume home morphine sulfate 30 mg twice daily, [place] 10/325 every 6 hours as needed, and Lyrica 75 mg twice daily -Morphine 4 mg IV every 4 hours as needed for severe breakthrough pain Data and imaging reviewed: -Vital signs reviewed. Blood pressure 106/72, heart rate 129, respiratory rate 30, SpO2 92% on BiPAP with FiO2 of 65%. Temperature high over the past 24 hours was 101.6F. -Morning labs pending. Overall prognosis is poor. CODE STATUS: DO NOT RESUSCITATE/DO NOT INTUBATE DVT prophylaxis: Lovenox Anticipated discharge date: Clinical course to determine Anticipated discharge place: Home with home care versus hospice Patient was seen independently by Nurse Pracitioner. This document was prepared using [employer] dictation software. Please allow for errors in liberal arts and humanities chair, while rare they do occur. Cory Bentley NP rendered care for this patient independently, reviewed the findings and plan as documented in the note above. I did not physically speak with or examine the patient on this date. Objective - Vital Signs Vital signs: Vital Signs Temp 99.2 F 08/09/23 04:23 Pulse 129 H 08/09/23 06:20 Resp 30 H 08/09/23 06:20 BP 106/72 08/09/23 06:20 Pulse Ox 92 L 08/09/23 06:20 FiO2 65 08/09/23 06:20 Intake & Output 08/08/23 08/09/23 08/09/23 18:59 06:59 18:59 Intake Total 600 40 Output Total 900 1400 Balance -300 -1360 Weight 107.5 kg Intake: IV 40 Invasive Line 1 20 Invasive Line 2 20 Oral 600 Output: Urine 900 1400 Other: Voiding Method Indwelling Catheter Indwelling Catheter - Labs CBC & Chem 7: 08/11/23 07:34 08/11/23 07:34 Labs: Abnormal Lab Results - Last 24 Hours (Table) 08/08/23 08/08/23 Range/Units 11:01 11:01 RBC 3.68 L (4.30-5.90) m/uL Hgb 9.8 L (13.0-17.5) gm/dL Hct 31.7 L (39.0-53.0) % MCHC 30.7 L (31.0-37.0) g/dL RDW 16.6 H (11.5-15.5) % Sodium 135 L (137-145) mmol/L Chloride 96 L (98-107) mmol/L BUN 21 H (9-20) mg/dL Creatinine 0.60 L (0.66-1.25) mg/dL Glucose 271 H (74-99) mg/dL Calcium 8.2 L (8.4-10.2) mg/dL Total Protein 5.0 L (6.3-8.2) g/dL Albumin 2.3 L (3.5-5.0) g/dL
[2023-08-09] MEDS: METOPROLOL TARTRATE 25 MG TAB PO SCH (12:08)
[2023-08-09] MEDS: AMIODARONE 450 MG in DEXTROSE 5% IN WATER 250 ML IV SCH (12:13)
[2023-08-09 12:50] LABS: ALT 38 U/L (4-49); AST 35 U/L (17-59); African American GFR (CKD) 88 (>60 ml/min/1.73 sqM); Albumin 2.5 g/dL (3.5-5.0); Alkaline Phosphatase 142 U/L (38-126); Anion Gap 12 mmol/L; Anisocytosis Slight; Blood Urea Nitrogen 25 mg/dL (9-20); Calcium 8.4 mg/dL (8.4-10.2); Carbon Dioxide 23 mmol/L (22-30); Chloride 99 mmol/L (98-107); Glucose 219 mg/dL (74-99); HCT 33.3 % (39.0-53.0); HGB 10.3 gm/dL (13.0-17.5); Hypochromasia Marked; MCV 87.2 fL (80.0-100.0); Magnesium 1.7 mg/dL (1.6-2.3); Non-African American GFR(CKD) 76 (>60 ml/min/1.73 sqM); Platelet Count 273 k/uL (150-450); RBC 3.82 m/uL (4.30-5.90); RDW 16.1 % (11.5-15.5); Sodium 134 mmol/L (137-145); Total Bilirubin 0.7 mg/dL (0.2-1.3); Total Protein 5.5 g/dL (6.3-8.2)
[2023-08-09 12:53] LABS: Potassium 5.4 mmol/L (3.5-5.1)
--- NOTE | 2023-08-09 13:52 | P.PN ---
Subjective Progress Note Date: 08/09/23 Principal diagnosis: Shortness of breath. This is a 72-year-old male patient with a known history of chronic obstructive pulmonary disease, bladder cancer with previous transurethral resection, paroxysmal atrial fibrillation, hyperlipidemia, hypertension, CVA/TIA, former smoker. He also has a history of metastatic colon cancer with diffuse pulmonary involvement and metastasis to the brain. He has been having issues with recurrent right-sided pleural effusion and had undergone a thoracentesis on 07/07/23 with 2 L of serosanguineous fluid removed. He was recently here again and had a Pleurx catheter placed on 07/31/2023. Cytology was negative for malignancy. Discharged home on 08/03/2023. He re-presented to the emergency room again yesterday 08/06/2023 with complaints of shortness of breath. He was not home long enough to have the home care nurses drain his Pleurx catheter. Chest x-ray shows known multiple pulmonary nodules and masses. Back on COPD. Increasing patchy opacity right mid and lower lung with small effusion. I count 8.9. Hemoglobin 10.9. Sodium 137. Potassium 4.4. Bicarb 34. BUN 24. Creatinine 0.64. Arterial blood gases on 40% FiO2 revealed a PaO2 of 95, pCO2 44, pH 7.51. He is seen today in consultation in the emergency department. Currently sitting up in a stretcher. On BiPAP 12/6 and 40% FiO2. He is breathing a bit easier today compared to yesterday. Progress note dated 08/08/2023. 72-year-old male with history of COPD, bladder cancer, atrial fibrillation, hyperlipidemia, and metastatic colon cancer, who was seen in the emergency department yesterday. The patient is seen today in room 351. The patient developed atrial fibrillation, and is currently on amiodarone 0.5 mg/m. He did use of BiPAP last night, with settings of 12/6, and 40%. Currently he is on 5 L. The patient's getting saline at 20 mL an hour. He seems to be resting comfortably, laying flat in bed. The patient is a DO NOT RESUSCITATE patient. Current laboratory data are only from August 07, and nothing from August 08. Progress note dated 08/09/2023. 72-year-old male with history of COPD, bladder cancer, atrial fibrillation, hyperlipidemia, and metastatic colon cancer. The patient is seen today in room 351. The patient is doing a bit better today. He is currently on BiPAP, with settings of 12/6, at 65%. He's getting saline at 20 mL an hour. A pro- calcitonin level is pending. Yesterday, he had 150 mL of fluid removed from his Pleurx catheter. He is currently on vancomycin and Zosyn. Currently labs include a white count 11, heme him 10.3, hematocrit 33.3, and a platelet count of 273,000. Sodium 134, potassium 5.4, chlorides 99, CO2 23, BUN 25, creatinine 1. Albumin is 2.5. Chest x-ray shows bibasilar infiltrates, right greater than left. There is a small right-sided pleural effusion. Objective - Vital Signs Vital signs: Vital Signs Temp 97.8 F 08/09/23 08:15 Pulse 82 08/09/23 12:17 Resp 21 08/09/23 08:15 BP 98/66 08/09/23 08:15 Pulse Ox 93 L 08/09/23 08:15 FiO2 65 08/09/23 09:09 Intake & Output 08/08/23 08/09/23 08/09/23 18:59 06:59 18:59 Intake Total 600 40 138 Output Total 900 1400 Balance -300 -1360 138 Weight 107.5 kg Intake: IV 40 20 Invasive Line 1 20 10 Invasive Line 2 20 10 Oral 600 118 Output: Urine 900 1400 Other: Voiding Method Indwelling Catheter Indwelling Catheter Indwelling Catheter - Exam No acute distress, oriented 3. Currently on BiPAP. HEENT examination is grossly unremarkable. Mucous membranes are moist. No oral lesions. Neck supple. Full range of motion. No adenopathy thyromegaly or neck vein distention. Cardiovascular examination reveals regular rhythm rate. S1-S2 normal. No S3 or S4. No discernible murmur noted. Heart sounds are distant. Heart rate 82 bpm. Lungs reveal scattered bilateral rhonchi and wheezes. Breath sounds equal. No crackles. BiPAP saturations are 95%. Abdomen soft bowel sounds are heard. No masses or tenderness. Extremities are intact. No cyanosis clubbing or edema. Skin is without rash or lesion. Neurologic examination is brief but nonfocal. - Labs CBC & Chem 7: 08/09/23 11:32 08/09/23 11:32 Labs: Abnormal Lab Results - Last 24 Hours (Table) 08/09/23 08/09/23 Range/Units 11:32 11:32 WBC 11.0 H (3.8-10.6) k/uL RBC 3.82 L (4.30-5.90) m/uL Hgb 10.3 L (13.0-17.5) gm/dL Hct 33.3 L (39.0-53.0) % RDW 16.1 H (11.5-15.5) % Sodium 134 L (137-145) mmol/L Potassium 5.4 H (3.5-5.1) mmol/L BUN 25 H (9-20) mg/dL Glucose 219 H (74-99) mg/dL Alkaline Phosphatase 142 H (38-126) U/L Total Protein 5.5 L (6.3-8.2) g/dL Albumin 2.5 L (3.5-5.0) g/dL Assessment and Plan Assessment: Acute hypoxemic respiratory failure secondary to recurrent pleural effusions right greater than left, right-sided Pleurx catheter placed on 07/31/2023. History of right pleural effusion status post thoracentesis on 07/07/2023. Frequent readmissions to the hospital secondary to above. History of metastatic colon cancer to the brain being followed at [facility] for clinical trials. Chronic obstructive pulmonary disease. History of bladder cancer status post transurethral resection. History of nephrolithiasis and left-sided hydronephrosis. History of paroxysmal atrial fibrillation, not on anticoagulation. Hyperlipidemia. Hypertension. History of CVA/TIA. Former smoker. Plan: Plan dated 08/08/2023. The patient is seen today in room 351. The patient wore the BiPAP device last night, with settings of 12/6, and 40%. Currently, he's on 5 L nasal cannula. He is laying nearly flat in bed. Patient is also getting saline at 20 mL an hour. The patient was started on amiodarone 0.5 mg/m, for paroxysmal atrial fibrillation. The patient is a DO NOT RESUSCITATE patient. Labs, x-rays, and medications are reviewed. The patient's overall prognosis remains very guarded. We'll continue to follow the patient, and make recommendations along the way. Plan dated 08/09/2023. The patient is seen today in room 351. The patient is on BiPAP, with settings of 12/6, and 65%. A pro-calcitonin level is currently pending. The patient's getting saline at 20 mL an hour. The patient continues on vancomycin and Zosyn. Labs, x-rays, and all medications are reviewed. The patient's overall prognosis remains guarded. The patient is a no code patient. We will continue to follow make recommendations along the way. Time with Patient: Less than 30
[2023-08-10 07:19] LABS: Anisocytosis Slight; HCT 29.9 % (39.0-53.0); HGB 9.2 gm/dL (13.0-17.5); Hypochromasia Marked; MCH 26.9 pg (25.0-35.0); MCHC 30.9 g/dL (31.0-37.0); MCV 87.2 fL (80.0-100.0); Mean Platelet Volume 8.1; Platelet Count 251 k/uL (150-450); RBC 3.43 m/uL (4.30-5.90); WBC 11.6 k/uL (3.8-10.6)
[2023-08-10 08:13] LABS: ALT 34 U/L (4-49); AST 29 U/L (17-59); African American GFR (CKD) >90 (>60 ml/min/1.73 sqM); Albumin 2.3 g/dL (3.5-5.0); Alkaline Phosphatase 146 U/L (38-126); Anion Gap 5 mmol/L; Blood Urea Nitrogen 27 mg/dL (9-20); Calcium 8.3 mg/dL (8.4-10.2); Carbon Dioxide 30 mmol/L (22-30); Chloride 101 mmol/L (98-107); Glucose 159 mg/dL (74-99); Magnesium 1.9 mg/dL (1.6-2.3); Non-African American GFR(CKD) >90 (>60 ml/min/1.73 sqM); Potassium 4.7 mmol/L (3.5-5.1); Sodium 136 mmol/L (137-145); Total Bilirubin 0.3 mg/dL (0.2-1.3); Total Protein 5.5 g/dL (6.3-8.2)
--- NOTE | 2023-08-10 10:23 | P.PN ---
Subjective Progress Note Date: 08/10/23 On 08/10/2023, I am seeing the patient for a follow-up. This patient was hospitalized for shortness of breath the patient is being seen for a follow-up. The patient is known to have metastatic colon cancer with diffuse pulmonary involvement and brain metastases. He also has previous history of right-sided pleural effusion and has undergone thoracentesis on previous occasions last 1 being on 07/07/2023. At that time, a total of 2 L of fluid was aspirated from the right lung. He subsequently had a Pleurx catheter inserted on 07/31/2023. Noted the fluid cytology has been negative for malignancy. The patient was discharged home on 08/03/2023. He is known to have COPD, previous history of bladder cancer and previous transurethral resection of the bladder tumor and he also has paroxysmal A-fib, hypertension hyperlipidemia and previous history of CVA. His oncologist from out of [facility]. During this current admission, the patient was quite short of breath, he was placed on BiPAP pressure of 12/5 and FiO2 40%. He also developed A-fib RVR and the patient was started on amiodarone drip per protocol. He is a DNR/DNI CODE STATUS. He is being seen for a follow- up. No significant leukocytosis. He is chronically anemic. He was given empiric antibiotic coverage with a combination of Zosyn and vancomycin. His troponin was 0.04. LFTs were normal. Electrolytes were also within normal limits. The most recent chest x-ray from 08/09/2023 showed a persistent right more than left pulmonary nodular densities and infiltrates and atelectasis and a small right-sided pleural fluid collection in the percutaneous catheter is in good location. He is a DNR/DNI CODE STATUS. He is currently on oxygen alternating with BiPAP therapy at a pressure of 12 or 6 cm of water. He is afebrile. Home medications have been resumed. Subsequently, the patient was taken off the BiPAP and he was placed on 50 L of oxygen by nasal cannula. His breathing is still labored. On and off, he still using the BiPAP. We may consider the use of Airvo. At the same time, he had a meeting with hospice and he is not sure if he was to proceed with hospice care yet. His labs from today show a hemoglobin of 9.2, the risk of 11.6, BUN is 27 creatinine of 0.7 and his sodium level is at 136. Is quite anxious. The is at the bedside. Pleurx catheter is in place. Last drainage was 2 days ago and the output was minimal in the order of 100 mL. Objective - Vital Signs Vital signs: Vital Signs Temp 97.8 F 08/10/23 03:45 Pulse 81 08/10/23 09:17 Resp 22 08/10/23 03:45 BP 122/75 08/10/23 03:45 Pulse Ox 92 L 08/10/23 09:08 FiO2 65 08/10/23 09:08 Intake & Output 08/09/23 08/10/23 08/10/23 18:59 06:59 18:59 Intake Total 616 254.727 118 Output Total 300 375 Balance 316 -120.273 118 Intake: IV 20 20 Invasive Line 1 10 10 Invasive Line 2 10 10 Intake, IV Titration 234.727 Amount Amiodarone 450 mg In 234.727 Dextrose 5% in Water 250 ml @ 0.5 MG/MIN 16.667 mls/hr IV .Q15H [facility] Rx#: [id number] Oral 596 118 Output: Urine 300 375 Other: Voiding Method Indwelling Catheter Indwelling Catheter - Exam No acute distress, oriented 3. Currently off BiPAP on 13 L high flow oxygen HEENT examination is grossly unremarkable. Mucous membranes are moist. No oral lesions. Neck supple. Full range of motion. No adenopathy thyromegaly or neck vein distention. Cardiovascular examination reveals regular rhythm rate. S1-S2 normal. No S3 or S4. No discernible murmur noted. Heart sounds are distant. Lungs reveal scattered bilateral rhonchi and wheezes. Breath sounds equal. No crackles. Abdomen soft bowel sounds are heard. No masses or tenderness. Extremities are intact. No cyanosis clubbing or edema. Skin is without rash or lesion. Neurologic examination is brief but nonfocal. - Labs CBC & Chem 7: 08/10/23 05:59 08/10/23 05:59 Labs: Abnormal Lab Results - Last 24 Hours (Table) 08/09/23 08/09/23 08/09/23 Range/Units 11:32 11:32 11:32 WBC 11.0 H (3.8-10.6) k/uL RBC 3.82 L (4.30-5.90) m/uL Hgb 10.3 L (13.0-17.5) gm/dL Hct 33.3 L (39.0-53.0) % MCHC (31.0-37.0) g/dL RDW 16.1 H (11.5-15.5) % Sodium 134 L (137-145) mmol/L Potassium 5.4 H (3.5-5.1) mmol/L BUN 25 H (9-20) mg/dL Glucose 219 H (74-99) mg/dL Calcium (8.4-10.2) mg/dL Alkaline Phosphatase 142 H (38-126) U/L Total Protein 5.5 L (6.3-8.2) g/dL Albumin 2.5 L (3.5-5.0) g/dL Procalcitonin 2.87 H (0.02-0.09) ng/mL 08/10/23 08/10/23 Range/Units 05:59 05:59 WBC 11.6 H (3.8-10.6) k/uL RBC 3.43 L (4.30-5.90) m/uL Hgb 9.2 L (13.0-17.5) gm/dL Hct 29.9 L (39.0-53.0) % MCHC 30.9 L (31.0-37.0) g/dL RDW 16.0 H (11.5-15.5) % Sodium 136 L (137-145) mmol/L Potassium (3.5-5.1) mmol/L BUN 27 H (9-20) mg/dL Glucose 159 H (74-99) mg/dL Calcium 8.3 L (8.4-10.2) mg/dL Alkaline Phosphatase 146 H (38-126) U/L Total Protein 5.5 L (6.3-8.2) g/dL Albumin 2.3 L (3.5-5.0) g/dL Procalcitonin (0.02-0.09) ng/mL Assessment and Plan Plan: Assessment Acute on chronic shortness of breath, multifactorial, predominantly related to extensive metastatic disease involving the lungs and right-sided pleural effusion. The patient has a Pleurx catheter on the right that was inserted on 07/31/2023 and is undergoing periodic drainage. Last thoracentesis was done on 07/07/2023. Last drainage from the Pleurx catheter was 2 days ago and output has been minimal. The patient is obvious respiratory failure alternating between BiPAP and oxygen at 13 L/m nasal cannula. We'll try Airvo. DNR/DNI CODE STATUS. History of right-sided pleural effusion, fluid cytologies were negative for malignancy in the last thoracentesis was done on 07/07/2023 Multiple hospitalization for shortness of breath Metastatic colon cancer, stage IV and the patient is being considered for clinical trials. The patient has metastasis to the liver, lungs and brain with surrounding vasogenic edema maintained on Keppra and Decadron. COPD Bladder cancer with a previous transurethral resection of the tumor History of nephrolithiasis with left-sided hydronephrosis Paroxysmal atrial fibrillation with episodes of RVR, currently on no anticoagulants Hypertension Hyperlipidemia CVA/TIA history of Previous history of smoking Episodes of metabolic encephalopathy Plan Patient is a DNR/DNI CODE STATUS. Continue BiPAP in alternation with high flow oxygen Discussed with him the possibility of hospice and he needs to seriously consider that option Periodic drainage of the Pleurx catheter regarding the right-sided pleural effusion. Continue antibiotic coverage. Prognosis extremely poor based on the above. The patient is still being considered for clinical trials.
[2023-08-10] MEDS: AMIODARONE 200 MG TAB PO SCH (10:48)
[2023-08-10] MEDS: VANCOMYCIN TROUGH DUE 1 EACH MISC MISCELLANE ONE (12:50)
--- NOTE | 2023-08-10 13:37 | P.PN ---
Subjective Progress Note Date: 08/10/23 Hospital course: Patient is a very pleasant 72-year-old male with a past medical history of stage IV metastatic colon cancer with known metastases to liver, lung, and brain with recurrent right-sided pleural effusions and recent pleurX cath placement and A fib. Patient is well known to our group with 5 hospitalizations in the last 2 months. He was recently dischared on 08/03/23 after pleurx cath was placed, during that same hospital stay he struggled with A-fib RVR and was discharged home on amiodarone. Due to a low [id number] score and known brain mass with surrounding vasogenic edema he was not started on anticoagulation. Upon arrival to the emergency department on 08/06/23, patient underwent extensive evaluation. His initial heart rate was 105, blood pressure 87/63, and O2 sat 89% on 6 L nasal cannula. EKG showing atrial fibrillation with RVR at 103 bpm. Chest x-ra y showing known multiple pulmonary nodules and masses with background COPD and increasing opacity of right mid and lower lung with possible small effusion. Labs were completed and reviewed. CBC showing leukocytosis with WBC count of 11.9 and stable normocytic anemia with hemoglobin of 11.6. Coagulation profile normal findings. BMP revealing hypercarbia with bicarb of 33 and prerenal azotemia with BMI of 31. Magnesium normal findings at 1.8. Liver profile showing elevated ALT of 71 and alkaline phosphatase of 150. Initial troponin 0.200. ProBNP 3430. During his time in the emergency department patient was also reported to be going in and out of A-fib with rapid ventricular response. He was given a DuoNeb and given 15 mg of IVP Cardizem without significant change in his heart rate. He was placed on BiPAP which initially seemed to help with his heart rate and hypoxia however he again worsened overnight with uncontrolled rapid ventricular rate. Patient was admitted under our services with consultation to cardiology for atrial fibrillation with RVR and pulmonology for acute on chronic respiratory failure with hypoxia and hypercarbia. Troponins were trended resulting in 0.200, 0.100, and 0.044. He was seen by cardiology and started on amiodarone infusion. He had episodes of hypotension and was given a 500 cc bolus. Urinalysis was obtained positive for blood and greater than 182 RBCs, but negative for infection with only 4 WBCs. Discussions have been brought up regarding hospice care and family is evaluating and discussing their options at this time. Patient's daughter and power of commercial real estate attorney met with hospice on 08/07/23 but stated she needed to discuss with additional family prior to making these decisions. machine fancy stitcher, pt again with atrial fibrillation with RVR and was noted to spike an elevated temp of 101.6F. At this time orders were placed for blood cultures and pt was started on broad spectrum antibiotics with Vancomycin and Zosyn. Overall prognosis is poor. Physical exam: Vital signs reviewed and stable. General: Nontoxic, no distress and appears stated age. Derm: Skin warm and dry, normal coloration for ethnicity. Head: Atraumatic, normocephalic and symmetric. Eyes: EOMs intact, no lid lag, and anicteric sclera Mouth: no lip lesions, mucus membranes moist Cardiovascular: Irregularly irregular, no murmur, positive posterior tibial pulses bilaterally, and cap refill < 2 seconds. Lungs: Respirations with increased respiratory effort. Lungs diffuse coarse rhonchi and soft expiratory wheezes. Abdominal: soft, nontender to palpation, no guarding, no appreciable organomegaly Ext: ROM intact. No gross muscle atrophy, no edema, no contractures Neuro: Speech clear, face symmetrical and CN II-XII grossly intact with no noted focal neuro deficits Psych: Alert and oriented to person, place, time, and situation. Appropriate and pleasant affect. Assessment and Plan of Care: Mr. Donovan is a very pleasant 72-year-old male with a past medical history of stage IV metastatic colon cancer with known metastasis to liver, lung, and brain with recurrent right-sided pleural effusions and recent Pleurx catheter placement. He is currently admitted for acute on chronic respiratory failure with hypoxia and hypercarbia along with atrial fibrillation with recurrent episodes of RVR.. Discussions have been brought up regarding hospice care and family is evaluating and discussing their options at this time. Patient's daughter and power of commercial real estate attorney met with hospice on 08/07/23 but she declined their services at that time as she stated she needed to discuss with additional family prior to making these decisions. machine fancy stitcher, pt again with atrial fibrillation with RVR and was noted to spike an elevated temp of 101.6F and have increased oxygen needs. Patient was placed back on BiPAP requiring FiO2 of 65% to maintain SpO2 of >90%. At this time orders were placed for blood cultures and pt was started on broad spectrum antibiotics with Vancomycin and Zosyn. Overall prognosis is poor. Patient requiring BiPAP however he stated it is uncomfortable and refusing to wear BiPAP at this time. Had long discussion with patient and his fiance at bedside along with family member via telephone explaining poor prognosis and aga in discussing goals of care and hospice care. Patient does not want to wear BiPAP any longer and currently oxygen saturations 80% on 15 L O2 via nasal cannula. Respiratory at bedside and to place patient on AIRVO. Patient remains a DO NOT RESUSCITATE/DO NOT INTUBATE, but patient and family declining hospice at this time. Acute on chronic respiratory failure with hypoxia and hypercarbia, concerns of development of postobstructive pneumonia with elevated temp. 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 -Continue with BiPAP/AIRVO support as needed -Continue IV antibiotics of vancomycin and Zosyn -Blood cultures showing no growth to date. -Amiodarone infusion discontinued and Patient started back on amiodarone 200 mg by mouth 3 times daily by cardiology this morning. -Continue Aspirin 81 mg daily and Lipitor 40 mg daily -Continue with Guaifenesin 1200 mg twice daily, -Continue scheduled DuoNebs 4 times daily along with albuterol every 2 hours as needed for shortness of breath and/or wheezing -Continue Keppra 500 mg twice daily -Continue Decadron 4 mg daily -Pulmonary consultation reviewed: Poor overall prognosis. -Cardiology note reviewed: Continue IV amiodarone, no anticoagulation secondary to brain mass. Intractable pain related to malignancy -Resume home morphine sulfate 30 mg twice daily, Hernando 10/325 every 6 hours as needed, and Lyrica 75 mg twice daily -Morphine 4 mg IV every 4 hours as needed for severe breakthrough pain Data and imaging reviewed: -Vital signs reviewed. Blood pressure 106/72, heart rate 129, respiratory rate 30, SpO2 92% on BiPAP with FiO2 of 65%. Temperature high over the past 24 hours was 101.6F. -Morning labs reviewed. CBC showing leukocytosis with WBC count of 11.6 and stable normocytic anemia with hemoglobin of 9.2. BMP revealing mild prerenal azotemia with BUN of 27 otherwise normal findings. Blood glucose 159. Magnesium 1.9. Liver profile showing elevated alkaline phosphatase of 146. Pro- Calcitonin 2.87. Overall prognosis is poor. CODE STATUS: DO NOT RESUSCITATE/DO NOT INTUBATE DVT prophylaxis: Lovenox Anticipated discharge date: Clinical course to determine Anticipated discharge place: Clinical course to determine Patient was seen independently by Nurse Pracitioner. This document was prepared using [employer] dictation software. Please allow for errors in orchid transplanter, while rare they do occur. Cory Bentley NP rendered care for this patient independently, reviewed the findings and plan as documented in the note above. I did not physically speak with or examine the patient on this date. Objective - Vital Signs Vital signs: Vital Signs Temp 97.8 F 08/10/23 03:45 Pulse 64 08/10/23 03:45 Resp 22 08/10/23 03:45 BP 122/75 08/10/23 03:45 Pulse Ox 88 L 08/10/23 03:45 FiO2 65 08/10/23 03:00 Intake & Output 08/09/23 08/10/23 08/10/23 18:59 06:59 18:59 Intake Total 616 254.727 Output Total 300 375 Balance 316 -120.273 Intake: IV 20 20 Invasive Line 1 10 10 Invasive Line 2 10 10 Intake, IV Titration 234.727 Amount Amiodarone 450 mg In 234.727 Dextrose 5% in Water 250 ml @ 0.5 MG/MIN 16.667 mls/hr IV .Q15H REPLACED BY [facility] Rx#: [id number] Oral 596 Output: Urine 300 375 Other: Voiding Method Indwelling Catheter Indwelling Catheter - Labs CBC & Chem 7: 08/11/23 07:34 08/11/23 07:34 Labs: Abnormal Lab Results - Last 24 Hours (Table) 08/09/23 08/09/23 08/09/23 Range/Units 11:32 11:32 11:32 WBC 11.0 H (3.8-10.6) k/uL RBC 3.82 L (4.30-5.90) m/uL Hgb 10.3 L (13.0-17.5) gm/dL Hct 33.3 L (39.0-53.0) % MCHC (31.0-37.0) g/dL RDW 16.1 H (11.5-15.5) % Sodium 134 L (137-145) mmol/L Potassium 5.4 H (3.5-5.1) mmol/L BUN 25 H (9-20) mg/dL Glucose 219 H (74-99) mg/dL Alkaline Phosphatase 142 H (38-126) U/L Total Protein 5.5 L (6.3-8.2) g/dL Albumin 2.5 L (3.5-5.0) g/dL Procalcitonin 2.87 H (0.02-0.09) ng/mL 08/10/23 Range/Units 05:59 WBC 11.6 H (3.8-10.6) k/uL RBC 3.43 L (4.30-5.90) m/uL Hgb 9.2 L (13.0-17.5) gm/dL Hct 29.9 L (39.0-53.0) % MCHC 30.9 L (31.0-37.0) g/dL RDW 16.0 H (11.5-15.5) % Sodium (137-145) mmol/L Potassium (3.5-5.1) mmol/L BUN (9-20) mg/dL Glucose (74-99) mg/dL Alkaline Phosphatase (38-126) U/L Total Protein (6.3-8.2) g/dL Albumin (3.5-5.0) g/dL Procalcitonin (0.02-0.09) ng/mL
--- NOTE | 2023-08-10 13:48 | P.PN ---
Subjective Progress Note Date: 08/10/23 Shortness of breath The patient was seen and evaluated this morning. He continues to be hypoxic. He is on BiPAP at this point. The pulmonary team continues to be on the case. Beside that he went into atrial fibrillation with RVR yesterday and that he was started on amiodarone IV. The pressure is soft but I'm going to start on a small dose of beta emily with metoprolol. He is not on any oral ant icoagulation because of increased risk of bleeding especially that the patient does have possible metastasis to the brain from the colon cancer. 08/10 Patient is seen today in follow-up. Telemetry is sinus rhythm heart rate is in the 85 range. Patient has been on BiPAP and high flow nasal cannula. He is on amiodarone drip which we will transition to oral. The examination is remarkable for diminished breathing sounds bilaterally with bilateral expiratory wheezing and irregular rhythm with distant heart sounds and a change in mental status Assessment Metastatic colon cancer Persistent atrial fibrillation Change in mental status Acute hypoxic respiratory failure Plan Transition patient to oral amiodarone 200 mg 3 times daily for 1 week and then daily Hold on any anticoagulation at this point due to stage IV metastatic cancer Start the patient on metoprolol succinate 25 mg daily Follow-up with the patient Nurse practitioner note has been reviewed, I agree with the documented findings and plan of care. Patient was seen and examined. Objective - Vital Signs Vital signs: Vital Signs Temp 97.8 F 08/10/23 03:45 Pulse 81 08/10/23 09:17 Resp 22 08/10/23 03:45 BP 122/75 08/10/23 03:45 Pulse Ox 92 L 08/10/23 09:08 FiO2 65 08/10/23 09:08 Intake & Output 08/09/23 08/10/23 08/10/23 18:59 06:59 18:59 Intake Total 616 254.727 118 Output Total 300 375 Balance 316 -120.273 118 Intake: IV 20 20 Invasive Line 1 10 10 Invasive Line 2 10 10 Intake, IV Titration 234.727 Amount Amiodarone 450 mg In 234.727 Dextrose 5% in Water 250 ml @ 0.5 MG/MIN 16.667 mls/hr IV .Q15H [facility] Rx#: [id number] Oral 596 118 Output: Urine 300 375 Other: Voiding Method Indwelling Catheter Indwelling Catheter - Labs CBC & Chem 7: 08/10/23 05:59 08/10/23 05:59 Labs: Abnormal Lab Results - Last 24 Hours (Table) 08/09/23 08/09/23 08/09/23 Range/Units 11:32 11:32 11:32 WBC 11.0 H (3.8-10.6) k/uL RBC 3.82 L (4.30-5.90) m/uL Hgb 10.3 L (13.0-17.5) gm/dL Hct 33.3 L (39.0-53.0) % MCHC (31.0-37.0) g/dL RDW 16.1 H (11.5-15.5) % Sodium 134 L (137-145) mmol/L Potassium 5.4 H (3.5-5.1) mmol/L BUN 25 H (9-20) mg/dL Glucose 219 H (74-99) mg/dL Calcium (8.4-10.2) mg/dL Alkaline Phosphatase 142 H (38-126) U/L Total Protein 5.5 L (6.3-8.2) g/dL Albumin 2.5 L (3.5-5.0) g/dL Procalcitonin 2.87 H (0.02-0.09) ng/mL 08/10/23 08/10/23 Range/Units 05:59 05:59 WBC 11.6 H (3.8-10.6) k/uL RBC 3.43 L (4.30-5.90) m/uL Hgb 9.2 L (13.0-17.5) gm/dL Hct 29.9 L (39.0-53.0) % MCHC 30.9 L (31.0-37.0) g/dL RDW 16.0 H (11.5-15.5) % Sodium 136 L (137-145) mmol/L Potassium (3.5-5.1) mmol/L BUN 27 H (9-20) mg/dL Glucose 159 H (74-99) mg/dL Calcium 8.3 L (8.4-10.2) mg/dL Alkaline Phosphatase 146 H (38-126) U/L Total Protein 5.5 L (6.3-8.2) g/dL Albumin 2.3 L (3.5-5.0) g/dL Procalcitonin (0.02-0.09) ng/mL
[2023-08-11] MEDS: VANCOMYCIN 1,750 MG in SODIUM CHLORIDE 0.9% 500 ML 500 ML IVPB SCH (02:21)
[2023-08-11 09:26] LABS: Anisocytosis Slight; HGB 10.5 gm/dL (13.0-17.5); Hypochromasia Marked; MCH 29.6 pg (25.0-35.0); MCV 87.2 fL (80.0-100.0); Mean Platelet Volume 8.4; Platelet Count 313 k/uL (150-450); RBC 3.55 m/uL (4.30-5.90); RDW 16.4 % (11.5-15.5)
[2023-08-11 09:44] LABS: ALT 31 U/L (4-49); AST 31 U/L (17-59); African American GFR (CKD) >90 (>60 ml/min/1.73 sqM); Albumin 2.4 g/dL (3.5-5.0); Alkaline Phosphatase 165 U/L (38-126); Anion Gap 5 mmol/L; Blood Urea Nitrogen 23 mg/dL (9-20); Calcium 8.7 mg/dL (8.4-10.2); Carbon Dioxide 33 mmol/L (22-30); Chloride 102 mmol/L (98-107); Glucose 134 mg/dL (74-99); Non-African American GFR(CKD) >90 (>60 ml/min/1.73 sqM); Potassium 4.8 mmol/L (3.5-5.1); Sodium 140 mmol/L (137-145); Total Bilirubin 0.3 mg/dL (0.2-1.3); Total Protein 5.4 g/dL (6.3-8.2)
--- NOTE | 2023-08-11 09:50 | P.PN ---
Subjective Progress Note Date: 08/11/23 On 08/10/2023, I am seeing the patient for a follow-up. This patient was hospitalized for shortness of breath the patient is being seen for a follow-up. The patient is known to have metastatic colon cancer with diffuse pulmonary involvement and brain metastases. He also has previous history of right-sided pleural effusion and has undergone thoracentesis on previous occasions last 1 being on 07/07/2023. At that time, a total of 2 L of fluid was aspirated from the right lung. He subsequently had a Pleurx catheter inserted on 07/31/2023. Noted the fluid cytology has been negative for malignancy. The patient was discharged home on 08/03/2023. He is known to have COPD, previous history of bladder cancer and previous transurethral resection of the bladder tumor and he also has paroxysmal A-fib, hypertension hyperlipidemia and previous history of CVA. [facility] During this current admission, the patient was quite short of breath, he was placed on BiPAP pressure of 12/5 and FiO2 40%. He also developed A-fib RVR and the patient was started on amiodarone drip per protocol. He is a DNR/DNI CODE STATUS. He is being seen for a follow- up. No significant leukocytosis. He is chronically anemic. He was given empiric antibiotic coverage with a combination of Zosyn and vancomycin. His troponin was 0.04. LFTs were normal. Electrolytes were also within normal limits. The most recent chest x-ray from 08/09/2023 showed a persistent right more than left pulmonary nodular densities and infiltrates and atelectasis and a small right-sided pleural fluid collection in the percutaneous catheter is in good location. He is a DNR/DNI CODE STATUS. He is currently on oxygen alternating with BiPAP therapy at a pressure of 12 or 6 cm of water. He is afebrile. Home medications have been resumed. Subsequently, the patient was taken off the BiPAP and he was placed on 50 L of oxygen by nasal cannula. His breathing is still labored. On and off, he still using the BiPAP. We may consider the use of Airvo. At the same time, he had a meeting with hospice and he is not sure if he was to proceed with hospice care yet. His labs from today show a hemoglobin of 9.2, the risk of 11.6, BUN is 27 creatinine of 0.7 and his sodium level is at 136. Is quite anxious. The is at the bedside. Pleurx catheter is in place. Last drainage was 2 days ago and the output was minimal in the order of 100 mL. On 08/11/2023, the patient is still struggling with his breathing. I attempted Airvo on him yesterday. He was able to stay on that at 60 L with an FiO2 of 90% for quite some time. Ultimately, he became more short of breath he had to be placed on 100% nonrebreather facemask and the patient was becoming also hypoxic. Earlier this morning, the patient was found to have abdominal breathing. He was taken off the high flow oxygen and the patient was placed on BiPAP at a pressure of 12/6 cm of water with an FiO2 of 100%. His generating a tidal volume of above 1000. His aspirate is currently down to 20. His abdominal breathing has subsided. Unfortunately, nothing much can be offered to this patient. His extensive metastatic disease and the patient has not made up his mind yet regarding hospice care. More family members arriving including other friends who check on him. He is awake and alert and communicating. Declining Hospice care. He remains on Zosyn and vancomycin. Labs from today shows a white cell count of 10, hemoglobin 10.5, BUN is at 23 with a creatinine of 0.7 and a sodium level is at 140. Objective - Vital Signs Vital signs: Vital Signs Temp 98.4 F 08/11/23 04:00 Pulse 88 08/11/23 09:41 Resp 16 08/11/23 08:00 BP 140/71 08/11/23 08:00 Pulse Ox 92 L 08/11/23 09:29 FiO2 100 08/11/23 09:29 Intake & Output 08/10/23 08/11/23 08/11/23 18:59 06:59 18:59 Intake Total 118 Output Total 800 1250 Balance -682 -1250 Intake: Oral 118 Output: Urine 800 1250 Other: Voiding Method Indwelling Catheter Indwelling Catheter - Exam No acute distress, oriented 3. Currently off BiPAP on BiPAP at a pressure of 12/6 with an FiO2 of 100%, breathing is labored. He is not using excessive muscle breathing. HEENT examination is grossly unremarkable. Mucous membranes are moist. No oral lesions. Neck supple. Full range of motion. No adenopathy thyromegaly or neck vein distention. Cardiovascular examination reveals regular rhythm rate. S1-S2 normal. No S3 or S4. No discernible murmur noted. Heart sounds are distant. Lungs reveal scattered bilateral rhonchi and wheezes. Breath sounds equal. No crackles. Abdomen soft bowel sounds are heard. No masses or tenderness. Extremities are intact. No cyanosis clubbing or edema. Skin is without rash or lesion. Neurologic examination is brief but nonfocal. - Labs CBC & Chem 7: 08/11/23 07:34 08/11/23 07:34 Labs: Abnormal Lab Results - Last 24 Hours (Table) 08/11/23 08/11/23 Range/Units 07:34 07:34 RBC 3.55 L (4.30-5.90) m/uL Hgb 10.5 L (13.0-17.5) gm/dL Hct 31.0 L (39.0-53.0) % RDW 16.4 H (11.5-15.5) % Carbon Dioxide 33 H (22-30) mmol/L BUN 23 H (9-20) mg/dL Glucose 134 H (74-99) mg/dL Alkaline Phosphatase 165 H (38-126) U/L Total Protein 5.4 L (6.3-8.2) g/dL Albumin 2.4 L (3.5-5.0) g/dL Microbiology - Last 24 Hours (Table) 08/09/23 04:34 Blood Culture - Preliminary Blood 08/09/23 05:00 Blood Culture - Preliminary Blood Assessment and Plan Plan: Assessment Acute on chronic shortness of breath, multifactorial, predominantly related to extensive metastatic disease involving the lungs and right-sided pleural effusion. The patient has a Pleurx catheter on the right that was inserted on 07/31/2023 and is undergoing periodic drainage. Last thoracentesis was done on 07/07/2023. Last drainage from the Pleurx catheter was 2 days ago and output has been minimal. The patient is obvious respiratory failure alternating between BiPAP and Airvo. Earlier this morning, he was unable to tolerate the high flow system and the patient was switched back to BiPAP.. DNR/DNI CODE STATUS. History of right-sided pleural effusion, fluid cytologies were negative for malignancy in the last thoracentesis was done on 07/07/2023 Multiple hospitalization for shortness of breath Metastatic colon cancer, stage IV and the patient is being considered for clinical trials. The patient has metastasis to the liver, lungs and brain with surrounding vasogenic edema maintained on Keppra and Decadron. COPD Bladder cancer with a previous transurethral resection of the tumor History of nephrolithiasis with left-sided hydronephrosis Paroxysmal atrial fibrillation with episodes of RVR, currently on no anticoagulants Hypertension Hyperlipidemia CVA/TIA history of Previous history of smoking Episodes of metabolic encephalopathy Plan Unfortunately, nothing much can be offered for this patient. I made this known to his family and to the patient. He has terminal cancer with extensive pulmonary involvement. He is in respiratory failure and is very much dependent to high flow oxygen system's and BiPAP. My recommendations are still hospice care. Patient is a DNR/DNI CODE STATUS. Continue BiPAP in alternation with high flow oxygen Periodic drainage of the Pleurx catheter regarding the right-sided pleural effusion. Continue antibiotic coverage. Prognosis extremely poor based on the above.
[2023-08-11 13:01] VITALS: BMI 32.1
--- NOTE | 2023-08-11 13:32 | P.PN ---
Subjective Progress Note Date: 08/11/23 Hospital course: Patient is a very pleasant 72-year-old male with a past medical history of stage IV metastatic colon cancer with known metastases to liver, lung, and brain with recurrent right-sided pleural effusions and recent pleurX cath placement and A fib. Patient is well known to our group with 5 hospitalizations in the last 2 months. He was recently dischared on 08/03/23 after pleurx cath was placed, during that same hospital stay he struggled with A-fib RVR and was discharged home on amiodarone. Due to a low [id number] score and known brain mass with surrounding vasogenic edema he was not started on anticoagulation. Upon arrival to the emergency department on 08/06/23, patient underwent extensive evaluation. His initial heart rate was 105, blood pressure 87/63, and O2 sat 89% on 6 L nasal cannula. EKG showing atrial fibrillation with RVR at 103 bpm. Chest x-ra y showing known multiple pulmonary nodules and masses with background COPD and increasing opacity of right mid and lower lung with possible small effusion. Labs were completed and reviewed. CBC showing leukocytosis with WBC count of 11.9 and stable normocytic anemia with hemoglobin of 11.6. Coagulation profile normal findings. BMP revealing hypercarbia with bicarb of 33 and prerenal azotemia with BMI of 31. Magnesium normal findings at 1.8. Liver profile showing elevated ALT of 71 and alkaline phosphatase of 150. Initial troponin 0.200. ProBNP 3430. During his time in the emergency department patient was also reported to be going in and out of A-fib with rapid ventricular response. He was given a DuoNeb and given 15 mg of IVP Cardizem without significant change in his heart rate. He was placed on BiPAP which initially seemed to help with his heart rate and hypoxia however he again worsened overnight with uncontrolled rapid ventricular rate. Patient was admitted under our services with consultation to cardiology for atrial fibrillation with RVR and pulmonology for acute on chronic respiratory failure with hypoxia and hypercarbia. Troponins were trended resulting in 0.200, 0.100, and 0.044. He was seen by cardiology and started on amiodarone infusion. He had episodes of hypotension and was given a 500 cc bolus. Urinalysis was obtained positive for blood and greater than 182 RBCs, but negative for infection with only 4 WBCs. Discussions have been brought up regarding hospice care and family is evaluating and discussing their options at this time. Patient's daughter and power of securities attorney met with hospice on 08/07/23 but at this time have declined hospice care. Patient has had recurrent episodes of atrial fibrillation with RVR and also developed elevated temps as high as 101.6F. Patient was placed back on broad spectrum antibiotics with vancomycin and Zosyn. His overall prognosis is very poor. Patient alternating between BiPAP and AIRVO to maintain SpO2 of 90% or above. Patient has expressed on multiple occasions that he does not want to wear the BiPAP, patient's daughter/DPOAE adamant that he continues to wear. Physical exam: Vital signs reviewed and stable. General: Nontoxic, no distress and appears stated age. Derm: Skin warm and dry, normal coloration for ethnicity. Head: Atraumatic, normocephalic and symmetric. Eyes: EOMs intact, no lid lag, and anicteric sclera Mouth: no lip lesions, mucus membranes moist Cardiovascular: Irregularly irregular, no murmur, positive posterior tibial pulses bilaterally, and cap refill < 2 seconds. Lungs: Respirations with increased respiratory effort. Lungs diffuse coarse rhonchi and soft expiratory wheezes. Abdominal: soft, nontender to palpation, no guarding, no appreciable organomega ly Ext: ROM intact. No gross muscle atrophy, no edema, no contractures Neuro: Speech clear, face symmetrical and CN II-XII grossly intact with no noted focal neuro deficits Psych: Alert and oriented to person, place, time, and situation. Appropriate and pleasant affect. Assessment and Plan of Care: Mr. Donovan is a very pleasant 72-year-old male with a past medical history of stage IV metastatic colon cancer with known metastasis to liver, lung, and brain with recurrent right-sided pleural effusions and recent Pleurx catheter placement. He is currently admitted for acute on chronic respiratory failure with hypoxia and hypercarbia along with atrial fibrillation with recurrent episodes of RVR.. Discussions have been brought up regarding hospice care and family has declined.. Patient's daughter and reported power of securities attorney met with hospice on 08/07/23 but she declined their services at that time as she stated she needed to discuss with additional family prior to making these decisi ons. Patient has had recurrent episodes of atrial fibrillation with RVR and also developed elevated temps as high as 101.6F. Patient was placed back on broad spectrum antibiotics with vancomycin and Zosyn. His overall prognosis is very poor. Patient alternating between BiPAP and AIRVO. Patient has expressed on multiple occasions that he does not want to wear the BiPAP, patient's daughter/DPOAE adamant that he continues to wear. Acute on chronic respiratory failure with hypoxia and hypercarbia, secondary to metastatic cancer with malignant pleural effusions and likely development of pos tobstructive pneumonia. A-fib with RVR Acute metabolic encephalopathy likely secondary to above Metastatic colon cancer with mets to liver, lung, and brain with surround vasogenic edema 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 Acute metabolic encephalopathy with tremor Leukocytosis , resolved Elevated troponins, suspect type II VA due to hypoxia and Afib -Continue care PleurX catheter and drain as needed. -Continue with BiPAP/AIRVO support as needed -Continue IV antibiotics of vancomycin and Zosyn. Monitoring renal function and vancomycin trophic closely for any signs of vancomycin associated renal toxicity. -Blood cultures showing no growth to date. -Amiodarone infusion discontinued and Patient started back on amiodarone 200 mg by mouth 3 times daily by cardiology this morning. -Continue Aspirin 81 mg daily and Lipitor 40 mg daily -Continue with Guaifenesin 1200 mg twice daily, -Continue scheduled DuoNebs 4 times daily along with albuterol every 2 hours as needed for shortness of breath and/or wheezing -Continue Keppra 500 mg twice daily -Continue Decadron 4 mg daily -Pulmonary consultation reviewed: Poor overall prognosis. -Cardiology note reviewed: Continue IV amiodarone, no anticoagulation secondary to brain mass. Intractable pain related to malignancy -Resume home morphine sulfate 30 mg twice daily, [place] 10/325 every 6 hours as needed, and Lyrica 75 mg twice daily -Morphine 4 mg IV every 4 hours as needed for severe breakthrough pain Data and imaging reviewed: -Vital signs reviewed. Blood pressure 140/71, heart rate 78, respiratory rate 16, and SpO2 of 92% on BiPAP with FiO2 of 100%. Temp 98.4 axillary. -Morning labs reviewed. Vancomycin trophic therapeutic at 21.1 and renal function remains stable with BUN 23, creatinine 0.73, and GFR greater than 90. CBC showing resolution of leukocytosis with WBC count of 10.0 and stable normocytic anemia with hemoglobin of 10.5. Overall prognosis remains very poor. CODE STATUS: DO NOT RESUSCITATE/DO NOT INTUBATE DVT prophylaxis: Lovenox Anticipated discharge date: Clinical course to determine Anticipated discharge place: Clinical course to determine Patient was seen independently by Nurse Pracitioner. This document was prepared using [employer] dictation software. Please allow for errors in medical staff coordinator, while rare they do occur. Cory Bentley HEBREW PROFESSOR rendered care for this patient independently, reviewed the findings and plan as documented in the note above. I did not physically speak with or examine the patient on this date. Objective - Vital Signs Vital signs: Vital Signs Temp 98.4 F 08/11/23 04:00 Pulse 76 08/11/23 04:00 Resp 24 08/11/23 04:00 BP 132/79 08/11/23 04:00 Pulse Ox 92 L 08/11/23 04:00 FiO2 100 08/11/23 04:55 Intake & Output 08/10/23 08/11/23 08/11/23 18:59 06:59 18:59 Intake Total 118 Output Total 800 1250 Balance -682 -1250 Intake: Oral 118 Output: Urine 800 1250 Other: Voiding Method Indwelling Catheter Indwelling Catheter - Labs CBC & Chem 7: 08/11/23 07:34 08/11/23 07:34 Labs: Abnormal Lab Results - Last 24 Hours (Table) 08/10/23 Range/Units 05:59 Sodium 136 L (137-145) mmol/L BUN 27 H (9-20) mg/dL Glucose 159 H (74-99) mg/dL Calcium 8.3 L (8.4-10.2) mg/dL Alkaline Phosphatase 146 H (38-126) U/L Total Protein 5.5 L (6.3-8.2) g/dL Albumin 2.3 L (3.5-5.0) g/dL Microbiology - Last 24 Hours (Table) 08/09/23 04:34 Blood Culture - Preliminary Blood 08/09/23 05:00 Blood Culture - Preliminary Blood
--- NOTE | 2023-08-11 14:34 | P.PN ---
Subjective Progress Note Date: 08/11/23 Shortness of breath The patient was seen and evaluated this morning. He continues to be hypoxic. He is on BiPAP at this point. The pulmonary team continues to be on the case. Beside that he went into atrial fibrillation with RVR yesterday and that he was started on amiodarone IV. The pressure is soft but I'm going to start on a small dose of beta emily with metoprolol. He is not on any oral ant icoagulation because of increased risk of bleeding especially that the patient does have possible metastasis to the brain from the colon cancer. 08/10 Patient is seen today in follow-up. Telemetry is sinus rhythm heart rate is in the 85 range. Patient has been on BiPAP and high flow nasal cannula. He is on amiodarone drip which we will transition to oral. 08/11 Blood pressure 123/68, heart rate is in the 80s, patient is on high flow nasal cannula. Hemoglobin 10.5, BUN 23 creatinine 0.73. Hemoglobin 10.5. Patient has been transitioned to oral amiodarone starting yesterday. No plan for a nticoagulation due to stage IV metastatic cancer. The examination is remarkable for diminished breathing sounds bilaterally with bilateral expiratory wheezing and irregular rhythm with distant heart sounds and a change in mental status Assessment Metastatic colon cancer Persistent atrial fibrillation Change in mental status Acute hypoxic respiratory failure Plan Transition patient to oral amiodarone 200 mg 3 times daily for 1 week and then 200 mg once daily Hold on any anticoagulation at this point due to stage IV metastatic cancer Continue the patient on metoprolol succinate 25 mg daily Cardiology will sign off this case and follow on an as-needed basis. Please reconsult for any new concerns. Nurse practitioner note has been reviewed, I agree with the documented findings and plan of care. Patient was seen and examined. Objective - Vital Signs Vital signs: Vital Signs Temp 98.4 F 08/11/23 04:00 Pulse 84 08/11/23 09:29 Resp 16 08/11/23 08:00 BP 140/71 08/11/23 08:00 Pulse Ox 92 L 08/11/23 09:29 FiO2 100 08/11/23 09:29 Intake & Output 08/10/23 08/11/23 08/11/23 18:59 06:59 18:59 Intake Total 118 Output Total 800 1250 Balance -682 -1250 Intake: Oral 118 Output: Urine 800 1250 Other: Voiding Method Indwelling Catheter Indwelling Catheter - Labs CBC & Chem 7: 08/11/23 07:34 08/11/23 07:34 Labs: Abnormal Lab Results - Last 24 Hours (Table) 08/11/23 Range/Units 07:34 RBC 3.55 L (4.30-5.90) m/uL Hgb 10.5 L (13.0-17.5) gm/dL Hct 31.0 L (39.0-53.0) % RDW 16.4 H (11.5-15.5) % Microbiology - Last 24 Hours (Table) 08/09/23 04:34 Blood Culture - Preliminary Blood 08/09/23 05:00 Blood Culture - Preliminary Blood
[2023-08-11] MEDS: MELATONIN 3 MG TABLET PO PRN (23:25)
[2023-08-12] MEDS: MORPHINE SULFATE ER 30 MG TABLET PO SCH (07:32)
[2023-08-12 08:01] LABS: Anisocytosis Slight; HCT 29.6 % (39.0-53.0); HGB 9.5 gm/dL (13.0-17.5); Hypochromasia Moderate; MCH 27.4 pg (25.0-35.0); MCV 85.6 fL (80.0-100.0); Platelet Count 283 k/uL (150-450); RBC 3.46 m/uL (4.30-5.90); RDW 16.5 % (11.5-15.5); WBC 8.6 k/uL (3.8-10.6)
[2023-08-12 08:17] LABS: ALT 28 U/L (4-49); AST 31 U/L (17-59); African American GFR (CKD) >90 (>60 ml/min/1.73 sqM); Albumin 2.3 g/dL (3.5-5.0); Alkaline Phosphatase 152 U/L (38-126); Anion Gap 4 mmol/L; Blood Urea Nitrogen 21 mg/dL (9-20); Calcium 8.5 mg/dL (8.4-10.2); Carbon Dioxide 32 mmol/L (22-30); Chloride 102 mmol/L (98-107); Glucose 133 mg/dL (74-99); Magnesium 1.9 mg/dL (1.6-2.3); Non-African American GFR(CKD) >90 (>60 ml/min/1.73 sqM); Potassium 4.5 mmol/L (3.5-5.1); Sodium 138 mmol/L (137-145); Total Bilirubin 0.5 mg/dL (0.2-1.3); Total Protein 5.3 g/dL (6.3-8.2)
[2023-08-12] MEDS ORDERED: MORPHINE SULFATE IR 15 MG TABLET PO PRN (10:41)
--- NOTE | 2023-08-12 11:34 | P.PN ---
Progress Note - Text Progress Note Date: 08/12/23 ETHICS COMMITTEE NOTE Members Present: headline writer, Dr. Shane Barrios, Dr. Andrew Gomez, Dr. John Quintero, Jimy Betancourt, Jo Mckeon, Michael Garcia. Please refer to Ethics Committee Meeting Minutes provided by Jo Mckeon for further details. Reason for Referral: The ethics committee was referred this case due to concerns by care staff over whether patient's family member, who is DURABLE POWER OF PLASTER APPLICATOR, has the right to refuse pain medications on behalf of the patient. Summary of Discussion: This committee first discussed patient's present medical state, including terminal diagnosis of metastatic colon cancer to the brain into the lungs, dependence on BiPAP/Airvo for respiratory status, primarily bed dependent status. The committee next elucidated patient's primary attending recommendations as well as sales consultant residential manager recommendations regarding patient's prognosis. Patient's primary attending provided testimony on patient's mental state: Patient is alert and oriented x 2-3, but attention and concentration are significantly impaired, warranting surrogate decision maker to some degree. According to patient's family, patient had previously stated wishes of prioritizing his mental state over pain control. According to this headline writer's conversations with prior attending, patient had previously considered hospice and then later declined hospice, and family is adamant that hospice care is not in the previously stated wishes of the patient. At times, it appears the patient himself has confirmed that he would not want hospice care. This committee discussed the role of a surrogate decision maker and their place to make substituted judgments on behalf of the patient. This committee also discussed capacity of the patient to make his own medical decisions as it relates to two different levels of capacity: 1) the ability to enroll in or decline hospice, 2) to make his own decisions as it relates to requesting pain control in the form of morphine p.o. instant release as well as IV formulation. 1) As it relates to capacity to make decisions regarding hospice, this committee believes that the patient does not have the ability to make his own decisions and requires a surrogate decision maker. As of the evidence provided so far, this committee believes that patient's family has been making decisions in this regard that are in line with patient's previously stated wishes. 2) As a relates to the capacity to make decisions regarding pain control, this committee believes that patient does have capacity to request his own pain medication in the form of instant release or IV, as well as the right to refuse it. Given that patient has indicated to the patient's family that he wishes to prioritize his mental state over his pain control, we do believe that family is continuing to make decisions that are in line with the patient's wishes in this regard, however, we do believe that the patient has an element of decision making lacking in the area of informed decision making. Specifically, given patient's brain metastases, hospital status, and overall clinical state, his oscillating mental status is likely multifactorial, and discontinuing pain control will not greatly alter his overall decline in mental status, and therefore recognizing that his pain control is a related but separate decision process is important in continuing to make decisions in the best interest of the patient. Recommendations: We do recommend that providers on this case approach the patient's family in a multidisciplinary way in order to ensure that patient's family is completely informed about all aspects of patient's medical and mental state in order to make the informed decision that would best represent a surrogate decision made by the patient himself. According to the primary attending, patient's family has previously been told by their primary oncologist that patient will be a candidate for a clinical trial, and presently believe that patient may improve to the point where he would be able to enroll in the trial. Therefore, it is a further recommendation of this committee that patient's care team reach out to patient's primary oncologist in order to close the loop of communication regarding this trial and attempt to improve informed decision-making. As it relates to pain control, we do recommend that care staff allow for patient to request instant release morphine or IV morphine in order to improve pain control as well as respiratory distress.
--- NOTE | 2023-08-12 11:55 | P.PN ---
Subjective Progress Note Date: 08/12/23 On 08/10/2023, I am seeing the patient for a follow-up. This patient was hospitalized for shortness of breath the patient is being seen for a follow-up. The patient is known to have metastatic colon cancer with diffuse pulmonary involvement and brain metastases. He also has previous history of right-sided pleural effusion and has undergone thoracentesis on previous occasions last 1 being on 07/07/2023. At that time, a total of 2 L of fluid was aspirated from the right lung. He subsequently had a Pleurx catheter inserted on 07/31/2023. Noted the fluid cytology has been negative for malignancy. The patient was discharged home on 08/03/2023. He is known to have COPD, previous history of bladder cancer and previous transurethral resection of the bladder tumor and he also has paroxysmal A-fib, hypertension hyperlipidemia and previous history of CVA. His oncologist from out of [facility]. During this current admission, the patient was quite short of breath, he was placed on BiPAP pressure of 12/5 and FiO2 40%. He also developed A-fib RVR and the patient was started on amiodarone drip per protocol. He is a DNR/DNI CODE STATUS. He is being seen for a follow- up. No significant leukocytosis. He is chronically anemic. He was given empiric antibiotic coverage with a combination of Zosyn and vancomycin. His troponin was 0.04. LFTs were normal. Electrolytes were also within normal limits. The most recent chest x-ray from 08/09/2023 showed a persistent right more than left pulmonary nodular densities and infiltrates and atelectasis and a small right-sided pleural fluid collection in the percutaneous catheter is in good location. He is a DNR/DNI CODE STATUS. He is currently on oxygen alternating with BiPAP therapy at a pressure of 12 or 6 cm of water. He is afebrile. Home medications have been resumed. Subsequently, the patient was taken off the BiPAP and he was placed on 50 L of oxygen by nasal cannula. His breathing is still labored. On and off, he still using the BiPAP. We may consider the use of Airvo. At the same time, he had a meeting with hospice and he is not sure if he was to proceed with hospice care yet. His labs from today show a hemoglobin of 9.2, the risk of 11.6, BUN is 27 creatinine of 0.7 and his sodium level is at 136. Is quite anxious. The is at the bedside. Pleurx catheter is in place. Last drainage was 2 days ago and the output was minimal in the order of 100 mL. On 08/11/2023, the patient is still struggling with his breathing. I attempted Airvo on him yesterday. He was able to stay on that at 60 L with an FiO2 of 90% for quite some time. Ultimately, he became more short of breath he had to be placed on 100% nonrebreather facemask and the patient was becoming also hypoxic. Earlier this morning, the patient was found to have abdominal breathing. He was taken off the high flow oxygen and the patient was placed on BiPAP at a pressure of 12/6 cm of water with an FiO2 of 100%. His generating a tidal volume of above 1000. His aspirate is currently down to 20. His abdominal breathing has subsided. Unfortunately, nothing much can be offered to this patient. His extensive metastatic disease and the patient has not made up his mind yet regarding hospice care. More family members arriving including other friends who check on him. He is awake and alert and communicating. Declining Hospice care. He remains on Zosyn and vancomycin. Labs from today shows a white cell count of 10, hemoglobin 10.5, BUN is at 23 with a creatinine of 0.7 and a sodium level is at 140. On today's evaluation 08/12/2023, the patient still struggling with his breathing. The patient continues to be on a BiPAP for respiratory support. I do not think is ready for hospice yet. The patient is declining hospice care. He was made aware that his cancer is metastatic and he is in a end stage condition and the patient is to consider end-of-life care. On enough, the patient is experiencing pain. Family wanted to stop the pain killers. Nevertheless, overnight, the patient required narcotics as he was found to be considered amount of pain. He is a DNR/DNI CODE STATUS. Not much can be offered in terms of his care. An ethics consultation was obtained to discuss further treatment options. His mental status fluctuates. This morning, he is alert and awake and communicating. Labs were reviewed. The white suppository 0.6, hemoglobin is 9.5, BUN is 21 with a creatinine of 0.7. Objective - Vital Signs Vital signs: Vital Signs Temp 98.4 F 08/12/23 08:12 Pulse 84 08/12/23 08:28 Resp 24 08/12/23 08:12 BP 135/67 08/12/23 08:12 Pulse Ox 91 L 08/12/23 08:12 FiO2 92 08/12/23 08:18 Intake & Output 08/11/23 08/12/23 08/12/23 18:59 06:59 18:59 Intake Total 900 Output Total 900 700 600 Balance 0 -700 -600 Weight 107.5 kg Intake: Intake, IV Titration 600 Amount Piperacillin-Tazobactam 3 100 .375 gm In Sodium Chloride 0.9% 100 ml @ 25 mls/hr IVPB Q8H YASIR Rx#: [id number] Vancomycin 1,750 mg In 500 Sodium Chloride 0.9% 500 ml 500 ml @ 167 mls/hr IVPB Q12H YASIR Rx#: [id number] Oral 300 Output: Urine 900 700 600 Other: Voiding Method Indwelling Catheter Indwelling Catheter Indwelling Catheter - Exam No acute distress, oriented 3. Currently off BiPAP on BiPAP at a pressure of 12/6 with an FiO2 of 100%, breathing is labored. He is not using excessive muscle breathing. The patient is also alternating with the BiPAP on a high flow oxygen system at 60 L an FiO2 of 90%. He continues to have episodes of oxygen desaturation. HEENT examination is grossly unremarkable. Mucous membranes are moist. No oral lesions. Neck supple. Full range of motion. No adenopathy thyromegaly or neck vein distention. Cardiovascular examination reveals regular rhythm rate. S1-S2 normal. No S3 or S4. No discernible murmur noted. Heart sounds are distant. Lungs reveal scattered bilateral rhonchi and wheezes. Breath sounds equal. No crackles. Abdomen soft bowel sounds are heard. No masses or tenderness. Extremities are intact. No cyanosis clubbing or edema. Skin is without rash or lesion. Neurologic examination is brief but nonfocal. - Labs CBC & Chem 7: 08/12/23 06:39 08/12/23 06:39 Labs: Abnormal Lab Results - Last 24 Hours (Table) 08/12/23 08/12/23 Range/Units 06:39 06:39 RBC 3.46 L (4.30-5.90) m/uL Hgb 9.5 L (13.0-17.5) gm/dL Hct 29.6 L (39.0-53.0) % RDW 16.5 H (11.5-15.5) % Carbon Dioxide 32 H (22-30) mmol/L BUN 21 H (9-20) mg/dL Glucose 133 H (74-99) mg/dL Alkaline Phosphatase 152 H (38-126) U/L Total Protein 5.3 L (6.3-8.2) g/dL Albumin 2.3 L (3.5-5.0) g/dL Microbiology - Last 24 Hours (Table) 08/09/23 04:34 Blood Culture - Preliminary Blood 08/09/23 05:00 Blood Culture - Preliminary Blood Assessment and Plan Plan: Assessment Acute on chronic shortness of breath, multifactorial, predominantly related to extensive metastatic disease involving the lungs and right-sided pleural effusion. The patient has a Pleurx catheter on the right that was inserted on 07/31/2023 and is undergoing periodic drainage. Last thoracentesis was done on 07/07/2023. Last drainage from the Pleurx catheter was 2 days ago and output has been minimal. The patient is obvious respiratory failure alternating betwe en BiPAP and Airvo. Earlier this morning, he was unable to tolerate the high flow system and the patient was switched back to BiPAP.. DNR/DNI CODE STATUS. History of right-sided pleural effusion, fluid cytologies were negative for malignancy in the last thoracentesis was done on 07/07/2023 Multiple hospitalization for shortness of breath and the patient continues to have active issues with shortness of breath and respiratory failure which is essentially hypoxic in nature. Metastatic colon cancer, stage IV and the patient is being considered for clinical trials. The patient has metastasis to the liver, lungs and brain with surrounding vasogenic edema maintained on Keppra and Decadron. COPD Bladder cancer with a previous transurethral resection of the tumor History of nephrolithiasis with left-sided hydronephrosis Paroxysmal atrial fibrillation with episodes of RVR, currently on no anticoagulants Hypertension Hyperlipidemia CVA/TIA history of Previous history of smoking Episodes of metabolic encephalopathy Plan Unfortunately, nothing much can be offered for this patient. I made this known to his family and to the patient. He has terminal cancer with extensive pu lmonary involvement. He is in respiratory failure and is very much dependent to high flow oxygen system's and BiPAP. As such, X consultation was obtained and further discussion is to follow regarding his options of treatment. Strongly recommend end-of-life care as the patient's condition is terminal at this point in time. We'll be awaiting recommendations from the ethics committee. My recommendations are hospice care. Patient is a DNR/DNI CODE STATUS. Continue BiPAP in alternation with high flow oxygen Periodic drainage of the Pleurx catheter regarding the right-sided pleural effusion. Continue antibiotic coverage. Labs are stable Prognosis extremely poor based on the above.
[2023-08-12] MEDS: VANCOMYCIN TROUGH DUE 1 EACH MISC MISCELLANE ONE (13:07)
--- NOTE | 2023-08-12 15:59 | P.PN ---
Subjective Progress Note Date: 08/12/23 Hospital course: Patient is a very pleasant 72-year-old male with a past medical history of stage IV metastatic colon cancer with known metastases to liver, lung, and brain with recurrent right-sided pleural effusions and recent pleurX cath placement and A fib. On initial presentation, His initial heart rate was 105, blood pressure 87/63, and O2 sat 89% on 6 L nasal cannula. EKG showing atrial fibrillation with RVR at 103 bpm. Chest x-ray showing known multiple pulmonary nodules and masses with background COPD and increasing opacity of right mid and lower lung with possible small effusion. CBC showing leukocytosis with WBC count of 11.9 and stable normocytic anemia with hemoglobin of 11.6. BMP revealing hypercarbia with bicarb of 33 and prerenal azotemia with BMI of 31. Magnesium normal findings at 1.8. Liver profile showing elevated ALT of 71 and alkaline phosphatase of 150. Initial troponin 0.200. ProBNP 3430. During his time in the emergency department patient was also reported to be going in and out of A- fib with rapid ventricular response. He was given a DuoNeb and given 15 mg of IVP Cardizem without significant change in his heart rate. He was placed on BiPAP which initially seemed to help with his heart rate and hypoxia however he again worsened overnight with uncontrolled rapid ventricular rate. Patient was admitted under our services with consultation to cardiology for atrial fibrillation with RVR and pulmonology for acute on chronic respiratory failure with hypoxia and hypercarbia. Troponins were trended resulting in 0.200, 0.100, and 0.044. He was seen by cardiology and started on amiodarone infusion. He had episodes of hypotension and was given a 500 cc bolus. Urinalysis was obtained positive for blood and greater than 182 RBCs, but negative for infection with only 4 WBCs. Patient has had recurrent episodes of atrial fibrillation with RVR and also developed elevated temps as high as 101.6F. Patient was placed back on broad spectrum antibiotics with vancomycin and Zosyn. Family initially had goals of care discussion with the admitting attending, and was considering hospice care, however after meeting with hospice team they did not believe that hospice care or their philosophy align with patient's wishes. There was a concern with regards to his mental status, which has been waxing and waning. Family is concerned that certain medications utilized for comfort care is making his mental status worse, and patient's wishes are to have "intact mentation" as long as possible. Patient is now on maximum noninvasive res piratory support requiring 60L and 100% via HFNC. After readdressing goals of care with family again, family now understands that the likelihood of him getting out of the hospital is close to none. No further escalation of care. However we will continue to treat any underlying infection and provide medications for pain and anxiety only if needed. Physical exam: Vital signs reviewed and stable. General: Nontoxic, in moderate respiratory distress and appears stated age. Derm: Skin warm and dry, normal coloration for ethnicity. Head: Atraumatic, normocephalic and symmetric. Eyes: EOMs intact, no lid lag, and anicteric sclera Mouth: no lip lesions, mucus membranes moist Cardiovascular: Irregularly irregular, no murmur, positive posterior tibial pulses bilaterally, and cap refill < 2 seconds. Lungs: Respirations with increased respiratory effort. Lungs diffuse coarse rhonchi and soft expiratory wheezes. On high flow nasal cannula Abdominal: soft, nontender to palpation, no guarding, no appreciable organomegaly Ext: ROM intact. No gross muscle atrophy, no edema, no contractures Neuro: Tired appearing, oriented 3 however reduced attention and concentration Psych: Cooperative Assessment and Plan of Care: No escalation of care. Acute on chronic respiratory failure with hypoxia and hypercarbia, secondary to metastatic cancer with malignant pleural effusions and likely development of postobstructive pneumonia. A-fib with RVR, now rate controlled Acute metabolic encephalopathy likely secondary to above Metastatic colon cancer with mets to liver, lung, and brain with surround vasogenic edema 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 Leukocytosis , resolved Elevated troponins, suspect type II SD due to hypoxia and Afib -Continue care PleurX catheter and drain as needed. -Continue with BiPAP/AIRVO support as needed -Continue IV antibiotics of vancomycin and Zosyn. Monitoring renal function and vancomycin trophic closely for any signs of vancomycin associated renal toxicity. -Blood cultures showing no growth to date. -Patient started back on amiodarone 200 mg by mouth 3 times daily by cardiology -Continue Aspirin 81 mg daily and Lipitor 40 mg daily -Continue with Guaifenesin 1200 mg twice daily, -Continue scheduled DuoNebs 4 times daily along with albuterol every 2 hours as needed for shortness of breath and/or wheezing -Continue Keppra 500 mg twice daily -Continue Decadron 4 mg daily -Discussed with pulmonology, prognosis very poor -Cardiology has signed off -Discussed with outpatient oncologist, recommended comfort care measures and palliative care -shana discontinued Intractable pain related to malignancy -Continue home MS Contin 30 every 12 hours, [place] 10/325 every 6 hours as needed, immediate release morphine 15 mg oral every 4 hours for rectal pain as needed -Reevaluate for need for increasing pain medications depending on patient's overall respiratory and clinical status Data and imaging reviewed: -Morning labs reviewed. WBC 8.6, hemoglobin 9.5, creatinine 0.71 Overall prognosis remains very poor. CODE STATUS: DO NOT RESUSCITATE/DO NOT INTUBATE DVT prophylaxis: Lovenox Anticipated discharge date: Clinical course to determine Anticipated discharge place: Clinical course to determine Objective - Vital Signs Vital signs: Vital Signs Temp 98.2 F 08/12/23 11:10 Pulse 85 08/12/23 15:22 Resp 26 H 08/12/23 11:10 BP 126/74 08/12/23 11:10 Pulse Ox 91 L 08/12/23 11:10 FiO2 92 08/12/23 15:12 Intake & Output 08/11/23 08/12/23 08/12/23 18:59 06:59 18:59 Intake Total 900 Output Total 900 700 900 Balance 0 -700 -900 Weight 107.5 kg Intake: Intake, IV Titration 600 Amount Piperacillin-Tazobactam 3 100 .375 gm In Sodium Chloride 0.9% 100 ml @ 25 mls/hr IVPB Q8H [facility] Rx#: [id number] Vancomycin 1,750 mg In 500 Sodium Chloride 0.9% 500 ml 500 ml @ 167 mls/hr IVPB Q12H [facility] Rx#: [id number] Oral 300 Output: Urine 900 700 900 Other: Voiding Method Indwelling Catheter Indwelling Catheter External Catheter - Labs CBC & Chem 7: 08/12/23 06:39 08/12/23 06:39 Labs: Abnormal Lab Results - Last 24 Hours (Table) 08/12/23 08/12/23 Range/Units 06:39 06:39 RBC 3.46 L (4.30-5.90) m/uL Hgb 9.5 L (13.0-17.5) gm/dL Hct 29.6 L (39.0-53.0) % RDW 16.5 H (11.5-15.5) % Carbon Dioxide 32 H (22-30) mmol/L BUN 21 H (9-20) mg/dL Glucose 133 H (74-99) mg/dL Alkaline Phosphatase 152 H (38-126) U/L Total Protein 5.3 L (6.3-8.2) g/dL Albumin 2.3 L (3.5-5.0) g/dL Microbiology - Last 24 Hours (Table) 08/09/23 04:34 Blood Culture - Preliminary Blood 08/09/23 05:00 Blood Culture - Preliminary Blood
--- NOTE | 2023-08-12 16:30 | P.PN ---
Progress Note - Text Progress Note Date: 08/12/23 Advanced Care Planning: Diagnoses: Advanced metastatic colon cancer Acute metabolic encephalopathy Acute hypoxic respiratory failure Discussion: Person(s) present and participating in discussion: Daughter (primary decision maker), sister, son Summary: Explained in detail about the limitations of discharging patient home given current high oxygen requirements. Also discussed the conversation I had with outpatient oncologist, and the recommendation was comfort care measures given advanced metastatic disease. Family wants to continue treatment with the possibility of improving his lung function, and then consider palliative care at home. However, they also understand that his illness is terminal and the likelihood of him leaving the hospital during this admission is close to none. They would like no further escalation of care. We can continue to treat for any underlying respiratory infection, continued drain Pleurx catheter for palliative reasons, continue to provide supplemental oxygen. However, if he requires more pain medications or anything for agitation, we will assess that on an as-needed basis. Family does understand that due to hypoxia and further progression of cancer, patient will become more encephalopathic, and may require medications for pain and anxiety. These medications do have an adverse effect of causing further confusion, sedation, and respiratory depression. A total of 55 minutes of face to face time was spent discussing advanced care planning.
[2023-08-13] MEDS: KETOROLAC 15 MG/ML 1 ML VIAL IVP STA (02:35)
[2023-08-13 07:23] LABS: Anisocytosis Slight; Basophils % (A) 0 %; Eosinophils % (A) 0 %; HGB 9.7 gm/dL (13.0-17.5); Hypochromasia Moderate; Lymphocytes # (A) 0.5 k/uL (1.0-4.8); Lymphocytes % (A) 5 %; MCH 26.5 pg (25.0-35.0); MCHC 31.3 g/dL (31.0-37.0); MCV 84.9 fL (80.0-100.0); Mean Platelet Volume 8.1; Monocytes # (A) 0.2 k/uL (0-1.0); Monocytes % (A) 2 %; Neutrophils # (A) 7.9 k/uL (1.3-7.7); Neutrophils % (A) 91 %; Platelet Count 278 k/uL (150-450); RBC 3.66 m/uL (4.30-5.90); RDW 16.7 % (11.5-15.5); WBC 8.6 k/uL (3.8-10.6)
[2023-08-13 07:42] LABS: African American GFR (CKD) >90 (>60 ml/min/1.73 sqM); Anion Gap 4 mmol/L; Blood Urea Nitrogen 26 mg/dL (9-20); Calcium 8.5 mg/dL (8.4-10.2); Carbon Dioxide 31 mmol/L (22-30); Chloride 104 mmol/L (98-107); Glucose 132 mg/dL (74-99); Non-African American GFR(CKD) >90 (>60 ml/min/1.73 sqM); Potassium 4.3 mmol/L (3.5-5.1); Sodium 139 mmol/L (137-145)
[2023-08-13] MEDS: KETOROLAC 15 MG/ML 1 ML VIAL IVP ONE (10:02)
[2023-08-13 11:25] VITALS: TEMP 98
--- NOTE | 2023-08-13 14:04 | P.PN ---
Subjective Progress Note Date: 08/13/23 Patient continues to remain dyspneic with labored breathing, is BiPAP dependent, saturating well. Gen: In significant distress from respiratory effort Eyes: no scleral injection or icterus HENT: normocephalic, atraumatic, good hearing acuity, moist mucous membranes Neck: no tracheal deviation, full range of motion Resp: Tachypnea, accessory muscle use is present : no suprapubic tenderness, no CVAT, pineda catheter not present Neuro: moving all extremities without signs of weakness Psych: cooperative, anxious mood, insight and judgment is impaired Hospital course: Patient is a very pleasant 72-year-old male with a past medical history of stage IV metastatic colon cancer with known metastases to liver, lung, and brain with recurrent right-sided pleural effusions and recent pleurX cath placement and A fib. On initial presentation, His heart rate was 105, blood pressure 87/63, and O2 sat 89% on 6 L nasal cannula. EKG showing atrial fibrillation with RVR at 103 bpm. Chest x-ray showing known multiple pulmonary nodules and masses with background COPD and increasing opacity of right mid and lower lung with possible small effusion. CBC showing leukocytosis with WBC count of 11.9 and stable normocytic anemia with hemoglobin of 11.6. BMP revealing hypercarbia with bicarb of 33 and prerenal azotemia with BMI of 31. Magnesium normal findings at 1.8. Liver profile showing elevated ALT of 71 and alkaline phosphatase of 150. Initial troponin 0.200. ProBNP 3430. During his time in the emergency department patient was also reported to be going in and out of A-fib with rapid ventricular response. He was given a DuoNeb and given 15 mg of IVP Cardizem without significant change in his heart rate. He was placed on BiPAP which initially seemed to help with his heart rate and hypoxia however he again worsened overnight with uncontrolled rapid ventricular rate. Patient was admitted under our services with consultation to cardiology for atrial fibrillation with RVR and pulmonology for acute on chronic respiratory failure with hypoxia and hypercarbia. Troponins were trended resulting in 0.200, 0.100, and 0.044. He was seen by cardiology and started on amiodarone infusion. He had episodes of hypotension and was given a 500 cc bolus. Urinalysis was obtained positive for blood and greater than 182 RBCs, but negative for infection with only 4 WBCs. Patient has had recurrent episodes of atrial fibrillation with RVR and also developed elevated temps as high as 101.6F. P atient was placed back on broad spectrum antibiotics with vancomycin and Zosyn. Family initially had goals of care discussion with the admitting attending, and was considering hospice care, however after meeting with hospice team they did not believe that hospice care or their philosophy align with patient's wishes. There was a concern with regards to his mental status, which has been waxing and waning. Family is concerned that certain medications utilized for comfort care is making his mental status worse, and patient's wishes are to have "intact mentation" as long as possible. Patient is now on maximum noninvasive respiratory support requiring 60L and 100% via HFNC. After readdressing goals of care with family again, family now understands that the likelihood of him getting out of the hospital is close to none. No further escalation of care. However we will continue to treat any underlying infection and provide medications for pain and anxiety only if needed. Assessment and Plan of Care: No escalation of care. Acute on chronic respiratory failure with hypoxia and hypercarbia, secondary to metastatic cancer with malignant pleural effusions and likely development of postobstructive pneumonia. A-fib with RVR, now rate controlled Acute metabolic encephalopathy likely secondary to above Metastatic colon cancer with mets to liver, lung, and brain with surround vasogenic edema 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 Leukocytosis , resolved Elevated troponins, suspect type II CO due to hypoxia and Afib -Continue care PleurX catheter and drain as needed. -Continue with BiPAP/AIRVO support as needed -Continue IV antibiotics of vancomycin and Zosyn. Monitoring renal function and vancomycin trophic closely for any signs of vancomycin associated renal toxicity. -Blood cultures showing no growth to date. -Patient started back on amiodarone 200 mg by mouth 3 times daily by cardiology -Continue Aspirin 81 mg daily and Lipitor 40 mg daily -Continue with Guaifenesin 1200 mg twice daily, -Continue scheduled DuoNebs 4 times daily along with albuterol every 2 hours as needed for shortness of breath and/or wheezing -Continue Keppra 500 mg twice daily -Continue Decadron 4 mg daily -Discussed with pulmonology, prognosis very poor -Cardiology has signed off -Discussed with outpatient oncologist, recommended comfort care measures and palliative care -lyrica discontinued Intractable pain related to malignancy -Continue home MS Contin 30 every 12 hours, [place] 10/325 every 6 hours as needed, immediate release morphine 15 mg oral every 4 hours for rectal pain as needed -Reevaluate for need for increasing pain medications depending on patient's overall respiratory and clinical status Overall prognosis remains very poor. CODE STATUS: DO NOT RESUSCITATE/DO NOT INTUBATE DVT prophylaxis: Lovenox Anticipated discharge date: Clinical course to determine Anticipated discharge place: Clinical course to determine Objective - Vital Signs Vital signs: Vital Signs Temp 98.0 F 08/13/23 08:00 Pulse 88 08/13/23 08:06 Resp 25 H 08/13/23 08:00 BP 178/88 08/13/23 08:00 Pulse Ox 91 L 08/13/23 08:00 FiO2 100 08/13/23 11:25 Intake & Output 08/12/23 08/13/23 08/13/23 18:59 06:59 18:59 Output Total 900 1150 0 Balance -900 -1150 0 Output: Urine 900 1150 0 Other: Voiding Method External Catheter External Catheter External Catheter - Labs CBC & Chem 7: 08/13/23 06:49 08/13/23 06:49 Labs: Abnormal Lab Results - Last 24 Hours (Table) 08/13/23 08/13/23 Range/Units 06:49 06:49 RBC 3.66 L (4.30-5.90) m/uL Hgb 9.7 L (13.0-17.5) gm/dL Hct 31.0 L (39.0-53.0) % RDW 16.7 H (11.5-15.5) % Neutrophils # 7.9 H (1.3-7.7) k/uL Lymphocytes # 0.5 L (1.0-4.8) k/uL Carbon Dioxide 31 H (22-30) mmol/L BUN 26 H (9-20) mg/dL Creatinine 0.64 L (0.66-1.25) mg/dL Glucose 132 H (74-99) mg/dL Microbiology - Last 24 Hours (Table) 08/09/23 04:34 Blood Culture - Preliminary Blood 08/09/23 05:00 Blood Culture - Preliminary Blood
--- NOTE | 2023-08-13 14:22 | P.PN ---
Subjective Progress Note Date: 08/13/23 On 08/10/2023, I am seeing the patient for a follow-up. This patient was hospitalized for shortness of breath the patient is being seen for a follow-up. The patient is known to have metastatic colon cancer with diffuse pulmonary involvement and brain metastases. He also has previous history of right-sided pleural effusion and has undergone thoracentesis on previous occasions last 1 being on 07/07/2023. At that time, a total of 2 L of fluid was aspirated from the right lung. He subsequently had a Pleurx catheter inserted on 07/31/2023. Noted the fluid cytology has been negative for malignancy. The patient was discharged home on 08/03/2023. He is known to have COPD, previous history of bladder cancer and previous transurethral resection of the bladder tumor and he also has paroxysmal A-fib, hypertension hyperlipidemia and previous history of CVA. His oncologist from out of [place] [facility]. During this current admission, the patient was quite short of breath, he was placed on BiPAP pressure of 12/5 and FiO2 40%. He also developed A-fib RVR and the patient was started on amiodarone drip per protocol. He is a DNR/DNI CODE STATUS. He is being seen for a follow- up. No significant leukocytosis. He is chronically anemic. He was given empiric antibiotic coverage with a combination of Zosyn and vancomycin. His troponin was 0.04. LFTs were normal. Electrolytes were also within normal limits. The most recent chest x-ray from 08/09/2023 showed a persistent right more than left pulmonary nodular densities and infiltrates and atelectasis and a small right-sided pleural fluid collection in the percutaneous catheter is in good location. He is a DNR/DNI CODE STATUS. He is currently on oxygen alternating with BiPAP therapy at a pressure of 12 or 6 cm of water. He is afebrile. Home medications have been resumed. Subsequently, the patient was taken off the BiPAP and he was placed on 50 L of oxygen by nasal cannula. His breathing is still labored. On and off, he still using the BiPAP. We may consider the use of Airvo. At the same time, he had a meeting with hospice and he is not sure if he was to proceed with hospice care yet. His labs from today show a hemoglobin of 9.2, the risk of 11.6, BUN is 27 creatinine of 0.7 and his sodium level is at 136. Is quite anxious. The is at the bedside. Pleurx catheter is in place. Last drainage was 2 days ago and the output was minimal in the order of 100 mL. On 08/11/2023, the patient is still struggling with his breathing. I attempted Airvo on him yesterday. He was able to stay on that at 60 L with an FiO2 of 90% for quite some time. Ultimately, he became more short of breath he had to be placed on 100% nonrebreather facemask and the patient was becoming also hypoxic. Earlier this morning, the patient was found to have abdominal breathing. He was taken off the high flow oxygen and the patient was placed on BiPAP at a pressure of 12/6 cm of water with an FiO2 of 100%. His generating a tidal volume of above 1000. His aspirate is currently down to 20. His abdominal breathing has subsided. Unfortunately, nothing much can be offered to this patient. His extensive metastatic disease and the patient has not made up his mind yet regarding hospice care. More family members arriving including other friends who check on him. He is awake and alert and communicating. Declining Hospice care. He remains on Zosyn and vancomycin. Labs from today shows a white cell count of 10, hemoglobin 10.5, BUN is at 23 with a creatinine of 0.7 and a sodium level is at 140. On today's evaluation 08/12/2023, the patient still struggling with his breathing. The patient continues to be on a BiPAP for respiratory support. I do not think is ready for hospice yet. The patient is declining hospice care. He was made aware that his cancer is metastatic and he is in a end stage condition and the patient is to consider end-of-life care. On enough, the patient is experiencing pain. Family wanted to stop the pain killers. Nevertheless, overnight, the patient required narcotics as he was found to be considered amount of pain. He is a DNR/DNI CODE STATUS. Not much can be offered in terms of his care. An ethics consultation was obtained to discuss further treatment options. His mental status fluctuates. This morning, he is alert and awake and communicating. Labs were reviewed. The white suppository 0.6, hemoglobin is 9.5, BUN is 21 with a creatinine of 0.7. On today's evaluation 08/13/2023, I had a lengthy discussion with the patient's daughter. His condition essentially terminal and the patient is still on a BiPAP and unable to come off the BiPAP because of increased shortness of breath and respiratory distress and he continues to have ongoing issues with pain. DNR/DNI CODE STATUS. Ethics consultation was reviewed and appreciated. The Pleurx catheter was again drained and the total amount of upper was in the order of 25 mL. Labs were also reviewed. BUN is at 26 with a creatinine of 0.6. The risk of a 0.6 with a hemoglobin of 9.7. Remains on antibiotics. Remains on Decadron. No other changes in the medication. Family is contemplating end-of-life care. Objective - Vital Signs Vital signs: Vital Signs Temp 98.0 F 08/13/23 08:00 Pulse 88 08/13/23 08:06 Resp 25 H 08/13/23 08:00 BP 178/88 08/13/23 08:00 Pulse Ox 91 L 08/13/23 08:00 FiO2 100 08/13/23 08:00 Intake & Output 08/12/23 08/13/23 08/13/23 18:59 06:59 18:59 Output Total 900 1150 0 Balance -900 -1150 0 Output: Urine 900 1150 0 Other: Voiding Method External Catheter External Catheter External Catheter - Exam No acute distress, oriented 3. Currently off BiPAP on BiPAP at a pressure of 12/6 with an FiO2 of 100%, breathing is labored. He is not using excessive muscle breathing. The patient is also alternating with the BiPAP on a high flow oxygen system at 60 L an FiO2 of 90%. He continues to have episodes of oxygen desaturation. HEENT examination is grossly unremarkable. Mucous membranes are moist. No oral lesions. Neck supple. Full range of motion. No adenopathy thyromegaly or neck vein distention. Cardiovascular examination reveals regular rhythm rate. S1-S2 normal. No S3 or S4. No discernible murmur noted. Heart sounds are distant. Lungs reveal scattered bilateral rhonchi and wheezes. Breath sounds equal. No crackles. Abdomen soft bowel sounds are heard. No masses or tenderness. Extremities are intact. No cyanosis clubbing or edema. Skin is without rash or lesion. Neurologic examination is brief but nonfocal. - Labs CBC & Chem 7: 08/13/23 06:49 08/13/23 06:49 Labs: Abnormal Lab Results - Last 24 Hours (Table) 08/13/23 08/13/23 Range/Units 06:49 06:49 RBC 3.66 L (4.30-5.90) m/uL Hgb 9.7 L (13.0-17.5) gm/dL Hct 31.0 L (39.0-53.0) % RDW 16.7 H (11.5-15.5) % Neutrophils # 7.9 H (1.3-7.7) k/uL Lymphocytes # 0.5 L (1.0-4.8) k/uL Carbon Dioxide 31 H (22-30) mmol/L BUN 26 H (9-20) mg/dL Creatinine 0.64 L (0.66-1.25) mg/dL Glucose 132 H (74-99) mg/dL Microbiology - Last 24 Hours (Table) 08/09/23 04:34 Blood Culture - Preliminary Blood 08/09/23 05:00 Blood Culture - Preliminary Blood Assessment and Plan Plan: Assessment Acute on chronic shortness of breath, multifactorial, predominantly related to extensive metastatic disease involving the lungs and right-sided pleural ef fusion. The patient has a Pleurx catheter on the right that was inserted on 07/31/2023 and is undergoing periodic drainage. Last thoracentesis was done on 07/07/2023. Last drainage from the Pleurx catheter was 2 days ago and output has been minimal. The patient is obvious respiratory failure alternating between BiPAP and Airvo. For now, the patient is not able to tolerate the high flow oxygen and is constantly on BiPAP. Output from the Pleurx catheter is minimal at this point in time. History of right-sided pleural effusion, fluid cytologies were negative for malignancy in the last thoracentesis was done on 07/07/2023 Multiple hospitalization for shortness of breath and the patient continues to have active issues with shortness of breath and respiratory failure which is essentially hypoxic in nature. Metastatic colon cancer, stage IV and the patient is being considered for clinic al trials. The patient has metastasis to the liver, lungs and brain with surrounding vasogenic edema maintained on Keppra and Decadron. COPD Bladder cancer with a previous transurethral resection of the tumor History of nephrolithiasis with left-sided hydronephrosis Paroxysmal atrial fibrillation with episodes of RVR, currently on no anticoagulants Hypertension Hyperlipidemia CVA/TIA history of Previous history of smoking Episodes of metabolic encephalopathy Plan This is a terminal disease and end-of-life care should be introduced on this patient. Family has not made up their mind yet. Ethics committee consultation is appreciated. Unfortunately, nothing much can be offered for this patient. I made this known to his family and to the patient. He has terminal cancer with extensive pulmonary involvement. He is in respiratory failure and is very much dependent to high flow oxygen system's and BiPAP. As such, X consultation was obtained and further discussion is to follow regarding his options of treatment. Strongly recommend end-of-life care as the patient's condition is terminal at this point in time. My recommendations are hospice care. Patient is a DNR/DNI CODE STATUS. Continue BiPAP in alternation with high flow oxygen Periodic drainage of the Pleurx catheter regarding the right-sided pleural effusion. Last drainage was done today and output was minimal. Continue antibiotic coverage. Labs are stable Prognosis extremely poor based on the above.
[2023-08-13 15:49] VITALS: BP 143/73
[2023-08-13 18:03] VITALS: PULSE 75; RESP 30
--- NOTE | 2023-08-13 18:25 | P.DS ---
Providers Date of admission: 08/06/23 15:45 Expected date of discharge: 08/13/23 Attending physician: Virgen Denny, Consults: 08/06/23 18:51 Consult Physician Routine Consulting Provider: Luis Carlos Curtis Consult Reason/Comments: Hypoxia Do you want consulting provider notified?: Yes 08/09/23 05:07 Consult Physician Routine Consulting Provider: Mary Jane Moeller Consult Reason/Comments: Afib RVR Do you want consulting provider notified?: Yes, Notify in am Primary care physician: [facility] Course: Acute on chronic respiratory failure with hypoxia and hypercarbia, secondary to metastatic cancer with malignant pleural effusions and likely development of postobstructive pneumonia. A-fib with RVR, now rate controlled Acute metabolic encephalopathy likely secondary to above Metastatic colon cancer with mets to liver, lung, and brain with surround vasogenic edema 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 Leukocytosis , resolved Elevated troponins, suspect type II ID due to hypoxia and Afib Intractable pain related to malignancy Gen: In significant distress from respiratory effort Eyes: no scleral injection or icterus HENT: normocephalic, atraumatic, good hearing acuity, moist mucous membranes Neck: no tracheal deviation, full range of motion Resp: Tachypnea, accessory muscle use is present : no suprapubic tenderness, no CVAT, pineda catheter not present Neuro: moving all extremities without signs of weakness Psych: cooperative, anxious mood, insight and judgment is impaired Hospital course: Patient is a very pleasant 72-year-old male with a past medical history of stage IV metastatic colon cancer with known metastases to liver, lung, and brain with recurrent right-sided pleural effusions and recent pleurX cath placement and A fib. On initial presentation, His heart rate was 105, blood pressure 87/63, and O2 sat 89% on 6 L nasal cannula. EKG showing atrial fibrillation with RVR at 103 bpm. Chest x-ray showing known multiple pulmonary nodules and masses with background COPD and increasing opacity of right mid and lower lung with possible small effusion. CBC showing leukocytosis with WBC count of 11.9 and stable normocytic anemia with hemoglobin of 11.6. BMP revealing hypercarbia with bicarb of 33 and prerenal azotemia with BMI of 31. Magnesium normal findings at 1.8. Liver profile showing elevated ALT of 71 and alkaline phosphatase of 150. Initial troponin 0.200. ProBNP 3430. During his time in the emergency department patient was also reported to be going in and out of A-fib with rapid ventricular response. He was given a DuoNeb and given 15 mg of IVP Cardizem without significant change in his heart rate. He was placed on BiPAP which initially seemed to help with his heart rate and hypoxia however he again worsened overnight with uncontrolled rapid ventricular rate. Patient was admitted under our services with consultation to cardiology for atrial fibrillation with RVR and pulmonology for acute on chronic respiratory failure with hypoxia and hypercarbia. Troponins were trended resulting in 0.200, 0.100, and 0.044. He was seen by cardiology and started on amiodarone infusion. He had episodes of hypotension and was given a 500 cc bolus. Urinalysis was obtained positive for blood and greater than 182 RBCs, but negative for infection with only 4 WBCs. Patient has had recurrent episodes of atrial fibrillation with RVR and also developed elevated temps as high as 101.6F. Patient was placed back on broad spectrum antibiotics with vancomycin and Zosyn. Family initially had goals of care discussion with the admitting attending, and was considering hospice care, however after meeting with hospice team they did not believe that hospice care or their philosophy align with patient's wishes. There was a concern with regards to his mental status, which has been waxing and waning. Family is concerned that certain medications utilized for comfort care is making his mental status worse, and patient's wishes are to have "intact mentation" as long as possible. Patient is now on maximum noninvasive respiratory support requiring 60L and 100% via HFNC. Earlier today, I was informed by nursing that patient had reached out to try hospital care which is then EMS service for transportation and requested for discharge AGAINST MEDICAL ADVICE. I had an opportunity to speak with the patient and the family regarding patient's clinical status, and we did discuss the risk of acute decompensation as soon as BiPAP or Airvo are de-escalated. Patient's family including christiano wilson's DPOA recognized understanding of this risk and were adamant that this is a decision the patient would want for himself as he is previously stated multiple times that he would not want to pass in the hospital and they now understand his prognosis is severe and he is likely to decompensate soon as a result of his underlying metastatic disease process. Therefore, despite demonstrating and verbalizing understanding the risks including the inability to make it home without decompensating and passing away en route or shortly after making at home, patient's family requested that patient be discharged home. After explaining hospice services that could be provided, and multiple conversations with [facility] and [facility] (see social work note for further details), patient's family was agreeable to obtaining hospice services at home. [facility] agreed to provide medication and DME equipment necessary for the patient at home. I spent approximately 70 minutes coordinating this discharge on 08/13 Patient Condition at Discharge: Good Plan - Discharge Summary New Discharge Prescriptions: New MORPHINE ORAL LISY CONC 20mg/mL [Roxanol Oral Soln Conc 20MG/ML] 20 mg PO Q4H PRN #90 ml PRN Reason: Pain Continue Cholecalciferol [Vitamin D3 (25 Mcg = 1000 Iu)] 25 mcg PO DAILY [place]-3 Fatty Acids [[place]-3] 4,000 mg PO DAILY DULoxetine HCL [Cymbalta] 60 mg PO HS Tamsulosin [Flomax] 0.4 mg PO HS Pregabalin [Lyrica] 75 mg PO BID Pantoprazole [Protonix] 40 mg PO HS Montelukast [Singulair] 10 mg PO HS Morphine Sulfate ER [Ms Contin] 30 mg PO BID Cyanocobalamin (Vitamin B-12) [Vitamin B-12] 1,000 mcg PO DAILY Albuterol Sulfate [Ventolin HFA] 1 - 2 puff INHALATION RT-Q4H PRN PRN Reason: Shortness Of Breath Garlic 1,000 mg PO DAILY Ipratropium-Albuterol Nebulize [Duoneb 0.5 mg-3 mg/3 ml Soln] 3 ml INHALATION RT-QID #0 Atorvastatin [Lipitor] 40 mg PO HS HYDROcodone/APAP 10-325MG [[place] 10-325] 1 tab PO Q6H PRN PRN Reason: Pain Prochlorperazine [Compazine] 10 mg PO Q6H PRN PRN Reason: Nausea guaiFENesin [Mucinex] 1,200 mg PO BID polyethylene glycoL 3350 [Miralax] 17 gm PO DAILY levETIRAcetam [Keppra] 500 mg PO Q12HR #60 tab dexAMETHasone ORAL [Hexadrol] See Taper PO DIRECTED Metoprolol Tartrate [Lopressor] 25 mg PO BID #60 tab Amiodarone [Cordarone] 200 mg PO BID #60 tab Discharge Medication List Atorvastatin [Lipitor] 40 mg PO HS 06/12/23 [History] Cholecalciferol [Vitamin D3 (25 Mcg = 1000 Iu)] 25 mcg PO DAILY 06/12/23 [History] Cyanocobalamin (Vitamin B-12) [Vitamin B-12] 1,000 mcg PO DAILY 06/12/23 [History] DULoxetine HCL [Cymbalta] 60 mg PO HS 06/12/23 [History] HYDROcodone/APAP 10-325MG [[place] 10-325] 1 tab PO Q6H PRN 06/12/23 [History] Montelukast [Singulair] 10 mg PO HS 06/12/23 [History] Morphine Sulfate ER [Ms Contin] 30 mg PO BID 06/12/23 [History] [place]-3 Fatty Acids [[place]-3] 4,000 mg PO DAILY 06/12/23 [History] Pantoprazole [Protonix] 40 mg PO HS 06/12/23 [History] Pregabalin [Lyrica] 75 mg PO BID 06/12/23 [History] Prochlorperazine [Compazine] 10 mg PO Q6H PRN 06/12/23 [History] Tamsulosin [Flomax] 0.4 mg PO HS 06/12/23 [History] Albuterol Sulfate [Ventolin HFA] 1 - 2 puff INHALATION RT-Q4H PRN 07/06/23 [History] guaiFENesin [Mucinex] 1,200 mg PO BID 07/06/23 [History] polyethylene glycoL 3350 [Miralax] 17 gm PO DAILY 07/06/23 [History] levETIRAcetam [Keppra] 500 mg PO Q12HR #60 tab 07/10/23 [Rx] Garlic 1,000 mg PO DAILY 07/24/23 [History] dexAMETHasone ORAL [Hexadrol] See Taper PO DIRECTED 07/24/23 [History] Ipratropium-Albuterol Nebulize [Duoneb 0.5 mg-3 mg/3 ml Soln] 3 ml INHALATION RT-QID #0 07/26/23 [Rx] Metoprolol Tartrate [Lopressor] 25 mg PO BID #60 tab 07/26/23 [Rx] Amiodarone [Cordarone] 200 mg PO BID #60 tab 08/03/23 [Rx] MORPHINE ORAL LISY CONC 20mg/mL [Roxanol Oral Soln Conc 20MG/ML] 20 mg PO Q4H PRN #90 ml 08/13/23 [Rx] Follow up Appointment(s)/Referral(s): Hospice[facility] [REFERRING] - 1 Week [facility], [NON-STAFF] - 1 Week Manuel Lopez MD [Primary Care Provider] - 1-2 days Patient Instructions/Handouts: Hospice (DC), Hospice Care (GEN) Discharge Disposition: HOME WITH HOSPICE
== END 2023-08-13 19:57 | disposition hospice, inpatient (51) | DRG 180 ==
LOC: EC 11:58 → 3SCARD 15:45 → 2CATHESU 08-07 00:31 → 3SCARD 08-07 06:39
PROVIDERS: ADMIT Internal Medicine; ATTEND Internal Medicine
PROC: 5A09357 Assistance with Respiratory Ventilation, Less than 24 Consecutive Hours, Continuous Positive Airway Pressure (ICD-10-PCS; principal; 2023-08-06)
PROC: 5A0935A Assistance with Respiratory Ventilation, Less than 24 Consecutive Hours, High Flow/Velocity Cannula (ICD-10-PCS; 2023-08-10)
DX: C78.02 Secondary malignant neoplasm of left lung (principal); G93.41 Metabolic encephalopathy; G93.6 Cerebral edema; J96.21 Acute and chronic respiratory failure with hypoxia; J96.22 Acute and chronic respiratory failure with hypercapnia; I21.A1 Myocardial infarction type 2; J18.9 Pneumonia, unspecified organism; I48.19 Other persistent atrial fibrillation; J91.0 Malignant pleural effusion; C78.7 Secondary malignant neoplasm of liver and intrahepatic bile duct; C79.31 Secondary malignant neoplasm of brain; C18.9 Malignant neoplasm of colon, unspecified; J44.0 Chronic obstructive pulmonary disease with (acute) lower respiratory infection; J98.11 Atelectasis; C78.01 Secondary malignant neoplasm of right lung; I95.9 Hypotension, unspecified; I10 Essential (primary) hypertension; Z51.5 Encounter for palliative care; Z66 Do not resuscitate; G89.3 Neoplasm related pain (acute) (chronic); E78.5 Hyperlipidemia, unspecified; D63.0 Anemia in neoplastic disease; K21.9 Gastro-esophageal reflux disease without esophagitis; Z96.89 Presence of other specified functional implants; Z96.60 Presence of unspecified orthopedic joint implant; Z87.891 Personal history of nicotine dependence; Z28.310 Unvaccinated for COVID-19; Z79.891 Long term (current) use of opiate analgesic; Z85.51 Personal history of malignant neoplasm of bladder; Z90.49 Acquired absence of other specified parts of digestive tract; Z86.73 Personal history of transient ischemic attack (TIA), and cerebral infarction without residual deficits; Z79.899 Other long term (current) drug therapy; Z88.8 Allergy status to other drugs, medicaments and biological substances; Z87.442 Personal history of urinary calculi
CPT/HCPCS: 36415; 36600; 71045; 80048; 80053; 80202; 81001; 82140; 82805; 83735; 83880; 84100; 84145; 84484; 85025; 85027; 85610; 85730; 87040; 93005; 93308; 94640; 94660; 94760; 96361; 96365; 96366; 96375; 99291